=== PATIENT | male | born 1945 | race Caucasian/White ===

== ENCOUNTER 2019-12-11 21:25 | Inpatient (IN) | payer OTHER ==
[2019-12-13 05:34] VITALS: BMI 31.2
[2019-12-15 11:38] VITALS: O2SAT 93
[2019-12-15 13:08] VITALS: BP 104/55; TEMP 97.3
== END 2019-12-15 14:04 | disposition short-term general hospital (02) | DRG 280 ==
LOC: ER 21:25 → ERHOLD 22:52 → 3RD-ICU 12-12 00:34 → 4TH 12-13 11:25 → 2ND 12-14 19:49
PROVIDERS: ADMIT Internal Medicine; ATTEND Internal Medicine
PROC: 4A023N7 Measurement of Cardiac Sampling and Pressure, Left Heart, Percutaneous Approach (ICD-10-PCS; principal; 2019-12-15)
PROC: B2111ZZ Fluoroscopy of Multiple Coronary Arteries using Low Osmolar Contrast (ICD-10-PCS; 2019-12-15)
DX: I21.4 Non-ST elevation (NSTEMI) myocardial infarction (principal); J18.9 Pneumonia, unspecified organism; I10 Essential (primary) hypertension; E78.2 Mixed hyperlipidemia; I25.10 Atherosclerotic heart disease of native coronary artery without angina pectoris; E11.40 Type 2 diabetes mellitus with diabetic neuropathy, unspecified; E87.5 Hyperkalemia; E11.51 Type 2 diabetes mellitus with diabetic peripheral angiopathy without gangrene; K21.9 Gastro-esophageal reflux disease without esophagitis; J30.9 Allergic rhinitis, unspecified; M06.9 Rheumatoid arthritis, unspecified; M54.16 Radiculopathy, lumbar region; E87.6 Hypokalemia; Z79.82 Long term (current) use of aspirin; Z79.4 Long term (current) use of insulin; Z79.899 Other long term (current) drug therapy; Z95.5 Presence of coronary angioplasty implant and graft; Z20.828 Contact with and (suspected) exposure to other viral communicable diseases; Z98.1 Arthrodesis status; Z87.891 Personal history of nicotine dependence
CPT/HCPCS: 36415; 71045; 71275; 80048; 80076; 81003; 81015; 82947; 83605; 83735; 83880; 84132; 84145; 84443; 84484; 85025; 85610; 87040; 87070; 87081; 87804; 93005; 93306; 93454; 96372; 96374; 96375; 99285; C1760; C1893; J0456; J0583; J0696; J1650; J1720; J1815; J2250; J3010; J7030; J7040; Q9967; U0001

== ENCOUNTER 2020-05-20 10:47 | Inpatient (IN) | payer OTHER ==
--- OUTSIDE RECORDS SUMMARY | 2020-05-20 10:53 | XMS REPORT | Clinical Summary ---
:1945 Author Organization [facility] Address [address] [place] [address] Care Team Providers Name Role Phone Unavailable Primary Care Provider Unavailable Allergies No Known Allergies Medications Medication Sig Dispensed Refills Start End Status Date Date nitroglycerin Place 0.4 mg under 0 Active (NITROSTAT) 0.4 MG the tongue every 5 SL (five) minutes as tabletIndications: needed for Chest acute attack of pain Put 1 pill angina under tongue every 5min as needed for chest pain.No more than 3 doses in 15min.Call 911 if pain is unrelieved 5min after 1st dose . liraglutide 0.6 Inject 1.8 mg 0 Active mg/0.1 mL (18 mg/3 subcutaneously mL) PnIjIndications: daily . type 2 diabetes mellitus rosuvastatin Take 20 mg by 0 Act mar (CRESTOR) 40 MG mouth daily . tabletIndications: hardening of the arteries due to plaque buildup metFORMIN Take 1,000 mg by 0 Act mar (GLUCOPHAGE-XR) 500 mouth 2 (two) MG 24 hr times daily. tabletIndications: type 2 diabetes mellitus lansoprazole Take 30 mg by 0 Act mar (PREVACID) 30 MG mouth nightly. capsuleIndications: gastroesophageal reflux disease insulin glargine Inject 100 Units 0 Active (LANTUS) 100 unit/mL subcutaneously injectionIndications every morning Use : type 2 diabetes as directed . mellitus benazepriL Take 20 mg by 0 Activ e (LOTENSIN) 20 MG mouth daily. tabletIndications: high blood pressure empagliflozin Take 25 mg by 0 Ac tive (JARDIANCE) 25 mg mouth daily. tablet abatacept (ORENCIA) Inject 0 Active infusion intravenously every 28 days. clopidogreL (PLAVIX) Take 1 tablet (75 30 tablet 0 0 Active 75 mg tablet mg total) by mouth 0 021 daily. ranolazine (RANEXA) Take 1 tablet (500 60 tablet 0 0 Active 500 MG 12 hr tablet mg total) by mouth 0 0 21 2 (two) times daily. metoprolol tartrate Take 1 tablet (50 60 tablet Active (LOPRESSOR) 50 MG mg total) by mouth 0 021 tablet 2 (two) times daily. furosemide (LASIX) Take 40 mg by 0 Discontinued 40 MG mouth 2 (two) 020 tabletIndications: times daily. visible water retention metoprolol tartrate Take 50 mg by 0 Discontinued (LOPRESSOR) 50 MG mouth 2 (two) 020 tabletIndications: times daily. high blood pressure acetaminophen-codein Take 1 tablet by 0 Discontinued e (TYLENOL #3) mouth every 4 020 300-30 mg per tablet (four) hours as needed for Pain. gabapentin Take 600 mg by 0 Disc ontinued (NEURONTIN) 300 MG mouth 3 (three) 020 capsuleIndications: times daily as neuropathic pain needed . aspirin 81 MG Take 162 mg by 0 D iscontinued chewable tablet mouth daily. 020 metoprolol tartrate Take 75 mg by 60 tablet 0 Discontinued 75 mg mouth 2 (two) 0 020 TabIndications: high times daily. blood pressure isosorbide Take 1 tablet (30 30 tablet 0 D iscontinued mononitrate (IMDUR) mg total) by mouth 0 0 20 30 MG 24 hr tablet daily. ibuprofen Take 200 mg by 0 Disco ntinued (ADVIL,MOTRIN) 200 mouth every 6 020 MG tablet (six) hours as needed for Pain. apixaban (ELIQUIS) 5 Take 1 tablet (5 60 tablet Discontinued mg Tab tablet mg total) by mouth 0 020 2 (two) times daily. HYDROcodone-acetamin Take 1 tablet by 30 tablet 0 ophen (NORCO mouth every 6 0 020 7.5-325) 7.5-325 mg (six) hours as per tablet needed for Pain for up to 10 days. Max Daily Amount: 4 tablets Active Problems Problem Noted Date CAD (coronary artery disease) 02/21/2020 Coronary artery disease involving mentasta heart without angina pectoris, 02/21/2020 unspecified vessel or lesion type CAD, multiple vessel 12/15/2019 Acute respiratory insufficiency Acute blood loss anemia Hyperglycemia Encounters Date Type Specialty Care Team Description 04/20/2020 Office Visit Cardiology Wally, Encounter for Maycol Dsouza, postoperativ e wound MD check 04/06/2020 Office Visit Cardiology Wally, Visit for wound check Maycol Dsouza (Primary Dx) 04/06/2020 Travel 03/08/2020 Office Visit Yue Lo, Post-operative state Maycol Dsouza MD 02/25/2020 Documentation Rosalie Roque RN 02/22/2020 Anesthesia Event Derek Sanford MD 02/22/2020 Surgery Wally, REMOVAL,IMPELLA PUMP Maycol Dsouza MD 02/22/2020 Surgery Leonardo Carmona, PCI W/ IMPEL [facility] - IP PROC ONLY* * 02/22/2020 Anesthesia Event Ash Hunter MD 02/21/2020 - Hospital Encounter Cardiology Quynh, Coronary artery disease involving mentasta heart without angina pectoris, unspecified vessel or lesion type (Primary Dx); 02/24/2020 MD Eleazar Peripheral artery disease (HCC); Jermaine, Andrea Chest pain, uns pecified type MD Vivian 02/21/2020 Travel 02/19/2020 Orders Only Cardiology Leonardo Carmona MD 02/18/2020 Hospital Encounter Pre-Admission Testing 02/18/2020 Travel 12/15/2019 - Hospital Encounter Cardiology Suzie Hoffman CAD, mult iple vessel 12/17/2019 MD Slava 12/15/2019 Orders Only General Internal Medicine 12/15/2019 Travel after 05/20/2019 Family History Medical History Relation Name Comments Heart disease Father Heart disease Mother Relation Name Status Comments Father Mother Social History Tobacco Use Types Packs/Day Years Used Date Former Smoker Quit: 12/14/18 77 Smokeless Tobacco: Never Used Alcohol Use Drinks/Week oz/Week Comments Yes 21 Glasses of wine 12.6 Sex Assigned at Date Recorded Not on file Job Start Date Occupation Industry Not on file Not on file Not on file Travel History Travel Start Travel End No recent travel history available. Last Filed Vital Signs Vital Sign Reading Time Taken Blood Pressure 137/76 04/20/2020 11:14 AM CDT Pulse 93 04/20/2020 11:14 AM CDT Temperature 37.3 C (99.2 F) 04/20/2020 11:14 AM CDT Respiratory Rate 14 04/20/2020 11:14 AM CDT Oxygen Saturation 93% 04/20/2020 11:14 AM CDT Inhaled Oxygen Concentration - - Weight 91.6 kg (202 lb) 04/06/2020 11:08 AM CDT Height 180 cm (5' 10.87") 03/08/2020 10:22 AM CDT Body Mass Index 28.28 04/06/2020 11:08 AM CDT Plan of Treatment Health Maintenance Due Date Last Done Comments COLON CANCER SCREENING COLONOSCOPY 1945 MEDICARE ANNUAL WELLNESS (YEAR 2 or FIRST YEAR if no 07/11/2010 IPPE) PNEUMOCOCCAL 65+ LOW/MEDIUM RISK (2 of 2 - PCV13) 06/21/2015 06/21/2014 INFLUENZA VACCINE (#1) 2020 06/21/2014 Implants Implanted Type Area Wheel Worker Device Shelf Model / Identifier Expiration Serial / Date Lot Stent Synergy Otw [id number] - [id number] IMPLANTS N/A: [place] [id number] 06/14/2021 [id number] / Implanted: Qty: 1 on 02/22/2020 by Leonardo Carmona MD [employer] SCI:INTERV / CARDIOLOGY [id number] [employer] Otw [id number] - [id number] IMPLANTS N/A: [place] [id number] 07/06/2021 [id number] / Implanted: Qty: 1 on 02/22/2020 by Leonardo Carmona MD [employer] SCI:INTERV / CARDIOLOGY [id number] St[employer] Mr [id number] - [id number] IMPLANTS N/A: [place] [id number] 07/27/2021 [id number] / Implanted: Qty: 1 on 02/22/2020 by Leonardo Carmona MD [employer] SCI:INTERV / CARDIOLOGY [id number] Procedures Procedure Name Priority Date/Time Associated Comments Diagnosis VASCULAR DIAGRAM 03/02/2020 3:24 -SCAN PM CDT RHYTHM STRIP - SCAN 02/25/2020 2:01 PM CDT CARDIAC CATH REPORT - 02/25/2020 2:01 SCAN PM CDT RHYTHM STRIP - SCAN 02/24/2020 3:51 PM CDT REPORT OF PROCEDURE - 02/24/2020 1:51 ENDOSCOPY SCAN PM CDT POCT-GLUCOSE METER Routine 02/24/2020 8:03 Resul ts for this AM CDT procedure are i n the results section. CBC W/PLT COUNT & Routine 02/24/2020 5:25 Result s for this AUTO DIFFERENTIAL AM CDT procedure are in the results section. CBC W/PLT COUNT & Routine 02/24/2020 5:25 Result s for this AUTO DIFFERENTIAL AM CDT procedure are in the results section. BASIC METABOLIC PANEL Routine 02/24/2020 5:25 Re sults for this (7) AM CDT procedure are i n the results section. PHOSPHORUS Routine 02/24/2020 5:25 Results for this AM CDT procedure are i n the results section. MAGNESIUM Routine 02/24/2020 5:25 Results for this AM CDT procedure are i n the results section. POCT-GLUCOSE METER Routine 02/23/2020 9:23 Resul ts for this PM CDT procedure are i n the results section. TRANSFUSION SERVICE 02/23/2020 6:13 REPORT - SCAN PM CDT POCT-GLUCOSE METER Routine 02/23/2020 4:53 Resul ts for this PM CDT procedure are i n the results section. POCT-GLUCOSE METER Routine 02/23/2020 11:17 Resul ts for this AM CDT procedure are i n the results section. POCT-GLUCOSE METER Routine 02/23/2020 10:05 Resul ts for this AM CDT procedure are i n the results section. ECG 12-LEAD Routine 02/23/2020 9:10 AM CDT Procedure Note - Interface, External Ris In - 02/23/2020 9:13 AM CDT Ventricular Rate 74 BPM Atrial Rate 74 BPM P-R Interval 174 ms QRS Duration 88 ms Q-T Interval 396 ms QTC Calculation(Bazett) 439 ms P Milton 46 degrees R Milton 10 degrees T Milton 99 degrees Sinus rhythm with Premature atrial complexes and Premature ventricular complexes or Fusion complexes Abnormal QRS-T angle, consid er primary T wave abnormality Abnormal ECG When compared with ECG of 09:10, Fusion complexes are now Pre sent Premature ventricular comple xes are now Present Premature atrial complexes a re now Present ECG 12-LEAD Routine 02/23/2020 9:10 AM CDT Resu lts for this procedure are in the results section . ECG 12-LEAD Routine 02/23/2020 9:10 AM CDT Procedure Note - Interface, External Ris In - 02/23/2020 9:13 AM CDT Ventricular Rate 72 BPM Atrial Rate 72 BPM P-R Interval 178 ms QRS Duration 90 ms Q-T Interval 396 ms QTC Calculation(Bazett) 433 ms P Milton 45 degrees R Milton 6 degrees T Milton 96 degrees Poor data quality, interp retation may be adversely affected Sinus rhythm with marked sin us arrhythmia Abnormal QRS-T angle, consid er primary T wave abnormality Abnormal ECG When compared with ECG of 18:12, Significant changes have occ urred POCT-GLUCOSE METER Routine 02/23/2020 7:59 Resul ts for this AM CDT procedure are i n the results section. PHOSPHORUS Routine 02/23/2020 7:57 Results for this AM CDT procedure are i n the results section. MAGNESIUM Routine 02/23/2020 7:57 Results for this AM CDT procedure are i n the results section. BASIC METABOLIC PANEL Routine 02/23/2020 7:57 Re sults for this (7) AM CDT procedure are i n the results section. POCT-GLUCOSE METER Routine 02/23/2020 7:29 Resul ts for this AM CDT procedure are i n the results section. XR CHEST 1 VIEW STAT 02/23/2020 7:07 Results for this PORTABLE/BEDSIDE AM CDT procedure a re in the results section. POCT-GLUCOSE METER Routine 02/23/2020 6:16 Resul ts for this AM CDT procedure are i n the results section. POCT-GLUCOSE METER Routine 02/23/2020 4:55 Resul ts for this AM CDT procedure are i n the results section. POCT-GLUCOSE METER Routine 02/23/2020 4:08 Resul ts for this AM CDT procedure are i n the results section. LACTIC ACID, ARTERIAL Routine 02/23/2020 4:02 Re sults for this AM CDT procedure are i n the results section. KETONE, BLOOD STAT 02/23/2020 4:02 Results fo r this AM CDT procedure are i n the results section. BLOOD GAS, ARTERIAL Routine 02/23/2020 3:25 Resu lts for this AM CDT procedure are i n the results section. HEMOGLOBIN A1C Routine 02/23/2020 3:25 Results f or this AM CDT procedure are i n the results section. BASIC METABOLIC PANEL Routine 02/23/2020 3:25 Re sults for this (7) AM CDT procedure are i n the results section. LACTATE DEHYDROGENASE Routine 02/23/2020 3:25 Re sults for this (LDH) AM CDT procedure are i n the results section. CBC (HEMOGRAM ONLY) Routine 02/23/2020 3:25 Resu lts for this AM CDT procedure are i n the results section. MAGNESIUM STAT 02/23/2020 3:25 Results for this AM CDT procedure are i n the results section. POCT-GLUCOSE METER Routine 02/23/2020 3:19 Resul ts for this AM CDT procedure are i n the results section. POCT-GLUCOSE METER Routine 02/23/2020 2:05 Resul ts for this AM CDT procedure are i n the results section. POCT-GLUCOSE METER Routine 02/23/2020 1:13 Resul ts for this AM CDT procedure are i n the results section. LACTATE DEHYDROGENASE STAT Add-on 02/23/2020 12:26 Re sults for this (LDH) AM CDT procedure are i n the results section. BASIC METABOLIC PANEL Routine 02/23/2020 12:26 Re sults for this (7) AM CDT procedure are i n the results section. LACTIC ACID, VENOUS Routine 02/23/2020 12:26 Resu lts for this AM CDT procedure are i n the results section. PHOSPHORUS Routine 02/23/2020 12:26 Results for this AM CDT procedure are i n the results section. MAGNESIUM Routine 02/23/2020 12:26 Results for this AM CDT procedure are i n the results section. POCT-GLUCOSE METER Routine 02/23/2020 12:11 Resul ts for this AM CDT procedure are i n the results section. KETONE, BLOOD STAT 02/22/2020 9:23 Results fo r this PM CDT procedure are i n the results section. BLOOD GAS, ARTERIAL STAT 02/22/2020 9:23 Resu lts for this PM CDT procedure are i n the results section. LACTIC ACID, ARTERIAL Routine 02/22/2020 9:23 Re sults for this PM CDT procedure are i n the results section. BASIC METABOLIC PANEL Routine 02/22/2020 9:23 Re sults for this (7) PM CDT procedure are i n the results section. POCT-GLUCOSE METER Routine 02/22/2020 9:00 Resul ts for this PM CDT procedure are i n the results section. POCT-GLUCOSE METER Routine 02/22/2020 6:51 Resul ts for this PM CDT procedure are i n the results section. TRANSFUSION SERVICE 02/22/2020 6:00 REPORT - SCAN PM CDT CREATINE KINASE (CK) Add-On 02/22/2020 5:49 Res ults for this PM CDT procedure are i n the results section. LACTIC ACID, ARTERIAL Routine 02/22/2020 5:49 Re sults for this PM CDT procedure are i n the results section. PHOSPHORUS Routine 02/22/2020 5:49 Results for this PM CDT procedure are i n the results section. MAGNESIUM Routine 02/22/2020 5:49 Results for this PM CDT procedure are i n the results section. BASIC METABOLIC PANEL Routine 02/22/2020 5:49 Re sults for this (7) PM CDT procedure are i n the results section. GLUCOSE-STAT LAB STAT 02/22/2020 5:49 Results for this PM CDT procedure are i n the results section. POCT-GLUCOSE METER Routine 02/22/2020 5:22 Resul ts for this PM CDT procedure are i n the results section. CBC W/PLT COUNT & STAT 02/22/2020 2:51 Result s for this AUTO DIFFERENTIAL PM CDT procedure are in the results section. APTT STAT 02/22/2020 2:51 Results for this PM CDT procedure are i n the results section. PROTHROMBIN TIME/INR STAT 02/22/2020 2:51 Res ults for this PM CDT procedure are i n the results section. LACTIC ACID, ARTERIAL STAT 02/22/2020 2:51 Re sults for this PM CDT procedure are i n the results section. BASIC METABOLIC PANEL STAT 02/22/2020 2:51 Re sults for this (7) PM CDT procedure are i n the results section. CBC W/PLT COUNT & STAT 02/22/2020 2:51 Result s for this AUTO DIFFERENTIAL PM CDT procedure are in the results section. PLATELET COUNT STAT 02/22/2020 2:51 Results f or this PM CDT procedure are i n the results section. PREPARE RBC STAT 02/22/2020 2:09 Results for this PM CDT procedure are i n the results section. POCT-ACT Routine 02/22/2020 1:36 Results for this PM CDT procedure are i n the results section. HGB/HCT (H&H) - STAT Routine 02/22/2020 1:16 Res ults for this LAB PM CDT procedure are i n the results section. GLUCOSE-STAT LAB Routine 02/22/2020 1:16 Results for this PM CDT procedure are i n the results section. POTASSIUM-STAT LAB Routine 02/22/2020 1:16 Resul ts for this PM CDT procedure are i n the results section. SODIUM NA-STAT LAB Routine 02/22/2020 1:16 Resul ts for this PM CDT procedure are i n the results section. BLOOD GAS, ARTERIAL Routine 02/22/2020 1:16 Resu lts for this PM CDT procedure are i n the results section. RRL CRITICAL LABS Routine 02/22/2020 1:16 Result s for this (ABG,NA,K,H&H,GLUCOSE PM CDT proced ure are in ) the results section. REMOVAL,IMPELLA PUMP 02/22/2020 12:00 Coronary artery PM CDT disease with angina pectoris, unspecified vessel or lesion type, unspecified whether mentasta or transplanted heart (HCC) Case Notes 1 HR Special Needs (CASE WILL FOLLOW EARLIER HE ART CATH) POCT-ACT Routine 02/22/2020 11:44 AM Results for this CDT procedure are i n the results section. POCT-ACT Routine 02/22/2020 11:29 AM Results for this CDT procedure are i n the results section. POCT-ACT Routine 02/22/2020 11:00 AM Results for this CDT procedure are i n the results section. POCT-ACT Routine 02/22/2020 10:18 AM Results for this CDT procedure are i n the results section. POCT-ACT Routine 02/22/2020 9:37 AM Results for this CDT procedure are i n the results section. POCT-ACT Routine 02/22/2020 9:16 AM Results for this CDT procedure are i n the results section. PCI W/ IMPELLA 02/22/2020 7:30 AM Atherosclerosis of MCR - IP PROC CDT coronary artery with ONLY angina pectoris, unspecified vessel or lesion type, unspecified whether mentasta or transplanted heart (HCC) Case Notes (1)CASE 6TOP / ANESTHESIA ECG 12-LEAD Routine 02/21/2020 6:39 PM CDT Resu lts for this procedure are i n the results section . SARS-COV2/RT-PCR ([facility] & Routine 02/21/2020 6:28 PM CDT Results for this REF LABS) procedure are i n the results section . CBC W/PLT COUNT & AUTO Routine 02/21/2020 6:27 PM CDT Results for this DIFFERENTIAL procedure are i n the results section . TYPE AND SCREEN, AUTOMATED Routine 02/21/2020 6:27 PM CDT Results for this procedure are i n the results section . PLATELET AGGREGATION: AP Routine 02/21/2020 6:27 PM CDT Results for this FUNCTION SCREEN procedure ar e in the results section . CBC W/PLT COUNT & AUTO Routine 02/21/2020 6:27 PM CDT Results for this DIFFERENTIAL procedure are i n the results section . MAGNESIUM Routine 02/21/2020 6:27 PM CDT Resu lts for this procedure are i n the results section . PT/APTT Routine 02/21/2020 6:27 PM CDT Resu lts for this procedure are i n the results section . BASIC METABOLIC PANEL (7) Routine 02/21/2020 6:27 PM CDT Results for this procedure are i n the results section . ED ECG INTERPRETATION Routine 02/21/2020 5:30 PM CDT Results for this procedure are i n the results section . PERIPHERAL VASCULAR REPORT 12/18/2019 9:11 PM CDT - SCAN RHYTHM STRIP - SCAN 12/18/2019 10:10 AM CDT TRANSFUSION SERVICE REPORT 12/17/2019 5:50 PM CDT - SCAN ARTERIAL DOPPLER LEGS Routine 12/17/2019 3:27 PM CDT Results for this BILATERAL procedure are i n the results section . POCT-GLUCOSE METER Routine 12/17/2019 7:58 AM CDT Results for this procedure are i n the results section . TROPONIN I Routine 12/17/2019 3:43 AM CDT Resu lts for this procedure are i n the results section . CBC (HEMOGRAM ONLY) Routine 12/17/2019 3:43 AM CDT Results for this procedure are i n the results section . BASIC METABOLIC PANEL (7) Routine 12/17/2019 3:43 AM CDT Results for this procedure are i n the results section . TROPONIN I Routine 12/16/2019 9:36 PM CDT Resu lts for this procedure are i n the results section . ECHOCARDIOGRAM REPORT - 12/16/2019 9:20 PM CDT SCAN POCT-GLUCOSE METER Routine 12/16/2019 9:14 PM CDT Results for this procedure are i n the results section . TRANSFUSION SERVICE REPORT 12/16/2019 5:50 PM CDT - SCAN TROPONIN I Routine 12/16/2019 3:56 PM CDT Resu lts for this procedure are i n the results section . APTT Routine 12/16/2019 3:56 PM CDT Resu lts for this procedure are i n the results section . POCT-GLUCOSE METER Routine 12/16/2019 12:17 PM CDT Results for this procedure are i n the results section . 2D ECHO W/ DOPPLER Routine 12/16/2019 11:29 AM CDT Results for this (CW/PW/COLOR) procedure are in the results section . APTT Routine 12/16/2019 10:13 AM CDT Resu lts for this procedure are i n the results section . XR CHEST 1 VIEW STAT 12/16/2019 9:56 AM CDT R esults for this PORTABLE/BEDSIDE procedure a re in the results section . TROPONIN I Routine 12/16/2019 9:29 AM CDT Resu lts for this procedure are i n the results section . POCT-GLUCOSE METER Routine 12/16/2019 8:00 AM CDT Results for this procedure are i n the results section . CAROTID DOPPLER BILATERAL Routine 12/16/2019 7:51 AM CDT Results for this procedure are i n the results section . HEMOGLOBIN A1C Routine 12/16/2019 4:09 AM CDT Re sults for this procedure are i n the results section . LIPID PANEL Routine 12/16/2019 4:09 AM CDT Resu lts for this procedure are i n the results section . BASIC METABOLIC PANEL (7) Routine 12/16/2019 4:09 AM CDT Results for this procedure are i n the results section . ABORH, MANUAL STAT 12/15/2019 11:01 PM CDT Res ults for this procedure are i n the results section . TYPE AND SCREEN, AUTOMATED Routine 12/15/2019 10:40 PM CDT Results for this procedure are i n the results section . POCT-GLUCOSE METER Routine 12/15/2019 9:34 PM CDT Results for this procedure are i n the results section . PROTHROMBIN TIME/INR Routine 12/15/2019 6:25 PM CDT Results for this procedure are i n the results section . APTT Routine 12/15/2019 6:25 PM CDT Resu lts for this procedure are i n the results section . COMPREHENSIVE METABOLIC Routine 12/15/2019 6:25 PM CDT Results for this PANEL procedure are i n the results section . PLATELET AGGREGATION: AP Routine 12/15/2019 6:25 PM CDT Results for this FUNCTION SCREEN procedure ar e in the results section . ECG 12-LEAD Routine 12/15/2019 6:12 PM CDT Resu lts for this procedure are i n the results section . XR CHEST 1 VIEW Routine 12/15/2019 5:59 PM CDT R esults for this PORTABLE/BEDSIDE procedure a re in the results section . POCT-GLUCOSE METER Routine 12/15/2019 3:58 PM CDT Results for this procedure are i n the results section . after 05/20/2019 Results VASCULAR DIAGRAM -SCAN (03/02/2020 3:24 PM CDT) Narrative Performed At This result has an attachment that is no t available. RHYTHM STRIP - SCAN (02/25/2020 2:01 PM CDT)Only the most recent of3 results within the time period is included. Narrative Performed At This result has an attachment that is no t available. CARDIAC CATH REPORT - SCAN (02/25/2020 2:01 PM CDT) Narrative Performed At This result has an attachment that is no t available. EKG-SCANNED (02/24/2020 1:51 PM CDT) Narrative Performed At This result has an attachment that is no t available. POC-Glucose meter (02/24/2020 8:03 AM CDT)Only the most recent of23 results within the time period is included. POC-Glucose Meter 148 (H)Comment: : TESTED 70 - 110 mg/dL [facility] AT [facility] [address] [facility] [facility] [address] [facility], [id number]: Educational Resource Coordinator/Hotel Guest Service Agent ID = [id number] for LAURENCE MAHMOOD Specimen Blood Performing Organization Address City/State/Zipcode Phone Number [facility] [address] [place] [address] CENTER CBC with platelet count + automated diff (02/24/2020 5:25 AM CDT)Only the most recent of3 resultswithin the time period is included. WBC 8.0 3.5 - 10.5 K/L [facility] RBC 3.16 (L) 4.63 - 6.08 M/L [facility] Hemoglobin 9.7 (L) 13.7 - 17.5 GM/DL [facility] Hematocrit 30.3 (L) 40.1 - 51.0 % [facility] MCV 95.9 (H) 79.0 - 92.2 fL [facility] MCH 30.7 25.7 - 32.2 pg [facility] MCHC 32.0 (L) 32.3 - 36.5 GM/DL [facility] RDW 14.8 (H) 11.6 - 14.4 % [facility] Platelets 128 (L) 150 - 450 K/CU MM [facility] MPV 10.3 9.4 - 12.4 fL [facility] nRBC 0 0 - 0 /100 WBC [facility] % Neutros 62 % [facility] % Lymphs 22 % [facility] % Monos 14 % [facility] % Eos 1 % [facility] % Baso 1 % [facility] # Neutros 4.93 1.78 - 5.38 K/L [facility] # Lymphs 1.77 1.32 - 3.57 K/L [facility] # Monos 1.14 (H) 0.30 - 0.82 K/L [facility] # Eos 0.10 0.04 - 0.54 K/L [facility] # Baso 0.04 0.01 - 0.08 K/L [facility] Immature Granulocytes-Relative 1 0 - 1 % C [facility] Specimen Blood Performing Organization Address City/State/Zipcode Phone Number [address] [address] [place] Phosphorus (02/24/2020 5:25 AM CDT)Only the most recent of4 resultswithin the time period is included. Phosphorus 2.5 2.3 - 4.7 mg/dL [facility] Specimen Blood Narrative Performed At Educational Resource Coordinator ID - AYA L [facility] Performing Organization Address City/[facility]/Zipcode Phone Number [address] [address] [place] Magnesium (02/24/2020 5:25 AM CDT)Only the most recent of6 resultswithin the time period is included. Magnesium 2.4 1.6 - 2.6 mg/dL [facility] Specimen Blood Narrative Performed At Educational Resource Coordinator ID - AYA L [facility] Performing Organization Address City/State/Zipcode Phone Number [address] [address] [place] Basic Metabolic Panel (02/24/2020 5:25 AM CDT)Only the most recent of10 results within the time period is included. Sodium 138 136 - 145 meq/L [facility] Potassium 3.9 3.5 - 5.1 meq/L [facility] Chloride 107 98 - 107 meq/L [facility] CO2 24 22 - 29 meq/L [facility] BUN 9 7 - 21 mg/dL [facility] Creatinine 0.92 0.57 - 1.25 mg/dL [facility] Glucose 130 (H) 70 - 105 mg/dL [facility] Calcium 8.4 8.4 - 10.2 mg/dL [facility] EGFR 80Comment: ESTIMATED GFR IS mL/min/1.73 sq m [facility] NOT ACCURATE CREATININE CT DICAL [place] CLEARANCE IN PREDICTING GLOMERULAR FILTRATION RATE. ESTIMATED GFR IS NOT APPLICABLE FOR DIALYSIS PATIENTS. Specimen Blood Narrative Performed At Educational Resource Coordinator ID - PIAYA L [facility] Performing Organization Address City/State/Zipcode Phone Number [facility] [address] [place] [address] CENTER TRANSFUSION SERVICE REPORT - SCAN (02/23/2020 6:13 PM CDT)Only the most recent of4 resultswithin the time period is included. Narrative Performed At This result has an attachment that is no t available. ECG 12 lead (02/23/2020 9:10 AM CDT)Only the most recent of3 resultswithin the time period is included. Specimen Narrative Performed At Ventricular Rate 74 BPM GE MUSE Atrial Rate 74 BPM P-R Interval 174 ms QRS Duration 88 ms Q-T Interval 396 ms QTC Calculation(Bazett) 439 ms P Milton 46 degrees R Milton 10 degrees T Milton 99 degrees Sinus rhythm with Premature atrial complexes and Sharon ture ventricular complexes or Fusion complexes T wave inversion in aVL Abnormal ECG When compared with ECG of 23-FEB-2020 09 :10, Fusion complexes are now Present Premature ventricular complexes are now Present Premature atrial complexes are now Prese nt QRS axis has shifted from left T waves are no longer negative in I, V3- V6 QT has shortened Confirmed by MD IDALIA, EVA ([id number]) on 02/23/2020 12:43:33 PM Procedure Note Interface, External Ris In - 02/23/2020 12:43 PM CDT Ventricular Rate 74 BPM Atrial Rate 74 BPM P-R Interval 174 ms QRS Duration 88 ms Q-T Interval 396 ms QTC Calculation(Bazett) 439 ms P Milton 46 degrees R Milton 10 degrees T Milton 99 degrees Sinus rhythm with Premature atrial compl exes and Premature ventricular complexes or Fusion complexes T wave inversion in aVL Abnormal ECG When compared with ECG of 23-FEB-2020 09 :10, Fusion complexes are now Present Premature ventricular complexes are now Present Premature atrial complexes are now Prese nt QRS axis has shifted from left T waves are no longer negative in I, V3- V6 QT has shortened Confirmed by MD IDALIA, EVA ([id number]) on 02/23/2020 12:43:33 PM Performing Organization Address City/State/Zipcode Phone Number [place] X[facility] chest 1 view portable / bedside (02/23/2020 7:07 AM CDT)Only the most recent of3 resultswithin the time period is included. Specimen Narrative Performed At FINAL REPORT [facility] CLINICAL HISTORY: s/p PCI, impella remov al TECHNIQUE: 1 view of the chest. COMPARISON: 12/16/2019 IMPRESSION: There are no focal infiltrates or effusi ons. The cardiomediastinal silhouette is magnified by technique. Th e osseous structures appear intact. There is mild elevation of the r ight hemidiaphragm. Signed: Dorothy Ferreira MD Report Verified Date/Time:02/23/2020 07:27:25 Reading Location: [facility] Reading Room Procedure Note Interface, External Ris In - 02/23/2020 7:29 AM CDT FINAL REPORT CLINICAL HISTORY: s/p PCI, impella remov al TECHNIQUE: 1 view of the chest. COMPARISON: 12/16/2019 IMPRESSION: There are no focal infiltrates or effusi ons. The cardiomediastinal silhouette is magnified by technique. Th e osseous structures appear intact. There is mild elevation of the r ight hemidiaphragm. Signed: Dorothy Ferreira MD Report Verified Date/Time: 02/23/2020 0 7:27:25 Reading Location: [facility] Performing Organization Address City/State/Zipcode Phone Number GE [facility] Lactic Acid, Arterial (02/23/2020 4:02 AM CDT)Only the most recent of4 results within the time period is included. Lactate, Art 1.2 0.5 - 2.2 mmol/L [facility] Specimen Blood, Arterial Narrative Performed At Educational Resource Coordinator JORGE LUIS - ARLENE Mccormick [facility] CENTER Performing Organization Address City/[facility]/Zipcode Phone Number [address] [address] CENTER Ketone, blood (02/23/2020 4:02 AM CDT)Only the most recent of2 resultswithin the time period is included. Ketones, Blood 0.8 (H) <0.4 mmol/L [facility] Specimen Blood Performing Organization Address City/[facility] Phone Number [address] [address] CENTER CBC (Hemogram only) (02/23/2020 3:25 AM CDT)Only the most recent of2 results within the time period is included. WBC 9.7 3.5 - 10.5 K/L [facility] RBC 3.29 (L) 4.63 - 6.08 M/L [facility] Hemoglobin 10.2 (L) 13.7 - 17.5 GM/DL [facility] Hematocrit 30.8 (L) 40.1 - 51.0 % [facility] MCV 93.6 (H) 79.0 - 92.[address] [facility] MCH 31.0 25.7 - 32.[address] [facility] MCHC 33.1 32.3 - 36.5 GM/DL [facility] RDW 14.5 (H) 11.6 - 14.4 % [facility] Platelets 127 (L) 150 - 450 K/CU MM [facility] MPV 10.1 9.4 - 12.[address] [facility] nRBC 0 0 - 0 /[address] [facility] Specimen Blood Performing Organization Address City/[facility] Phone Number [address] [address] C[place] Lactate dehydrogenase (LDH) (02/23/2020 3:25 AM CDT)Only the most recent of2 resultswithin the time period is included. LDH 201 125 - 220 U/L [facility] Specimen Blood Narrative Performed At Educational Resource Coordinator ID - ARLENE W [facility] Performing Organization Address City/[facility] Phone Number [address] [address] CENTER Hemoglobin A1c (02/23/2020 3:25 AM CDT)Only the most recent of2 resultswithin the time period is included. Hemoglobin A1C 8.8 (H) 4.3 - 6.1 % [facility] Specimen Blood Performing Organization Address City/[facility] Phone Number [address] [address] [place] Blood gas, arterial (02/23/2020 3:25 AM CDT)Only the most recent of3 results within the time period is included. pH, Arterial 7.45 7.35 - 7.45 [facility] pCO2, Arterial 34 (L) 35 - [address] [facility] pO2, Arterial 140 (H) 80 - [address] [facility] O2 Sat, Arterial 98.9 (H) 96.0 - 97.0 % [facility] HCO3, Arterial 23 21 - 29 mmol/L [facility] Base Excess, Arterial -0.2 -2.0 - 3.0 mmol/L [facility] Patient Temperature 37.0 C [facility] FIO2 21.0 % [facility] Specimen Blood, Arterial Performing Organization Address [facility] Phone Number [address] [address] [place] Lactic acid, venous (02/23/2020 12:26 AM CDT) Lactate, Venous 1.65 0.50 - 2.20 mmol/L [facility] Specimen Blood Narrative Performed At Educational Resource Coordinator ID - DB [facility] Performing Organization Address [facility] Phone Number [address] [address] [place] Glucose-Stat Lab (02/22/2020 5:49 PM CDT)Only the most recent of2 resultswithin the time period is included. Glucose 292 (H) 70 - 110 mg/dL [facility] Specimen Blood, Arterial Performing Organization Address [facility] Phone Number [address] [address] [place] Creatine Kinase (CK) (02/22/2020 5:49 PM CDT) Total CK 152 29 - 200 U/L [facility] Specimen Blood Narrative Performed At Educational Resource Coordinator ID - DB [facility] Performing Organization Address [facility] Phone Number [address] [address] CENTER aPTT (02/22/2020 2:51 PM CDT)Only the most recent of4 resultswithin the time period is included. PTT 30.1 22.5 - 36.0 seconds [facility] Specimen Blood Performing Organization Address [facility] Phone Number [address] [address] CENTER Prothrombin time/INR (02/22/2020 2:51 PM CDT)Only the most recent of2 results within the time period is included. Protime 15.6 (H) 11.9 - 14.2 seconds [facility] INR 1.[address] [facility] Specimen Blood Narrative Performed At Effective 02/04/2019: PT Reference Range [facility] Change New: 11.9-14.2Previous: 11.7-14.7 RECOMMENDED COUMADIN/WARFARIN INR THERAPY RANGES STANDARD DOSE: 2.0-3.0Includes: PROPHYLAXIS for venous thrombosis, systemic embolization; TREATMENT for venous thrombosis and/or pulmonary embolus. HIGH RISK: Target INR is 2.5-3.5 for patients wiht mechanical heart valves. Performing Organization Address [facility] Phone Number [address] [address] CENTER Platelet count (02/22/2020 2:51 PM CDT) Platelets 154 150 - 450 K/CU MM [facility] Specimen Blood Performing Organization Address [facility] Phone Number [address] [address] CENTER Prepare RBC (02/22/2020 2:09 PM CDT) CROSSMATCH COMPATIBLE SAFETRACE TX Unit ABO O Pos SAFETRACE TX UNIT NUMBER [id number] SAFETRACE TX Status RETURNED FROM ISSUE SAFETRACE TX Blood Bank Product RED BLOOD CELLS SAFETRACE TX PRODUCT CODE [id number] SAFETRACE TX CROSSMATCH COMPATIBLE SAFETRACE TX Unit ABO O Pos SAFETRACE TX UNIT NUMBER [id number] SAFETRACE TX Status RETURNED FROM ISSUE SAFETRACE TX Blood Bank Product RED BLOOD CELLS SAFETRACE TX PRODUCT CODE [id number] SAFETRACE TX Performing Organization Address [facility] Phone Number SAFETRACE TX POC ACTIVATED CLOTTING TIME (02/22/2020 1:36 PM CDT)Only the most recent of7 resultswithin the time period is included. Activated Clotting Time 125Comment: : 74-137 sec [facility] seconds, Baseline: [facility]ED [facility] AT [address], [address]: Educational Resource Coordinator/Hotel Guest Service Agent ID = [id number] for SILVERIO REICH Specimen Blood Performing Organization Address [facility] Phone Number [address] [phone] CENTER Potassium-Stat Lab (02/22/2020 1:16 PM CDT) Potassium 3.8 3.6 - 5.5 meq/L [facility] Specimen Blood, Arterial Performing Organization Address [facility] Phone Number [address] [phone] CENTER Sodium Na-Stat Lab (02/22/2020 1:16 PM CDT) Sodium 136 136 - 145 meq/L [facility] Specimen Blood, Arterial Performing Organization Address [facility] Phone Number [address] [address] [place] HGB/HCT (H&H)-Stat Lab (02/22/2020 1:16 PM CDT) Hemoglobin 10.6 (L) 13.0 - 16.8 g/dL [facility] Hematocrit 31.0 (L) 40.0 - 50.0 % [facility] Specimen Blood, Arterial Performing Organization Address [facility] Phone Number [address] [phone] CENTER SARS-CoV2/RT-PCR (Asymptomatic ONLY) (02/21/2020 6:28 PM CDT) SARS-COV2/RT-PCR Not Detected Not Detected, Negative [facility] SARS-COV-2 PERFORMING LAB BSC [facility] Specimen Other Narrative Performed At Negative results do not preclude SARS-CoV-2 [facility] infection and should not be used as the sole basis for patient management decisions. Negative results must be combined with clinical observations, patient history, and epidemiological information. A false negative result may occur if a specimen is improperly collected, transported or handled. The limit of detection for this assay is 250 copies/mL. This SARS CoV-2 test is a rapid, real-time RT-PCR test intended for the qualitative detection of nucleic acid from SARS-CoV-2 in a nasopharyngeal swab specimen collected from individuals suspected of COVID-19 by their healthcare provider. This test has not been Food and Drug Administration (FDA) cleared or approved and has been authorized by FDA under an Emergency Use Authorization (EUA). This EUA will be effective until the declaration that circumstances exist justifying the authorization of the emergency use of in vitro diagnostic tests for detection and/or diagnosis of COVID-19 is terminated under Section 564(b)(2) of the Act or the EUA is revoked under Section 564(g) of the Act. Fact Sheet for Healthcare Providers: https://www.dondeEsta™/Documents/Xpert%20Xpre ss%20SARS%20CoV-2/Fact%20Sheets/3023802%20SAR S-COV-2%20HEALTHCARE%20PROVIDERS%20FACT%20SHEE T.pdf Fact Sheet for Healthcare Patients: https://www.[employer]/Documents/Xpert%20Xpre ss%20SARS%20CoV-2/Fact%20Sheets/3023801%20SAR S-COV-2%20PATIENT%20FACT%20SHEET.pdf Performing Laboratory: [address] [place] [address] Performing Organization Address City/State/Zipcode Phone Number [address] [address] CENTER Platelet Aggregation: Function Screen (02/21/2020 6:27 PM CDT)Only the most recent of2 resultswithin the time period is included. Pathologist: Daily Pina MD [facility] (electronic signature) [facility] Platelets 222 150 - 450 K/CU [facility] ADP 6 (L) 62 - 100 % [facility] Platelet Rich Plasma 278 200 - 300 k/cu [facility] Plt. Function Screen Pattern of disaggregation [facility] Interpretation present with ADP which [facility] may be characteristic of CENTER P2Y12 inhibitor effect. Correlation with medication history is required. Specimen Blood Narrative Performed At Platelet Function Screen results may be [facility] falsely low with platelet counts <75,000/cu mm. Educational Resource Coordinator ID - [id number] Performing Organization Address [facility] Phone Number [address] [address] CENTER Type and screen, automated ([facility] Lab) (02/21/2020 6:27 PM CDT)Only the most recent of2 resultswithin the time period is included. ABO/RH AUTOMATED (BEAKER) O POSITIVE [facility] Ab Scrn NEGATIVE [facility] Specimen Blood Performing Organization Address City/[facility]/Zipcode Phone Number [address] [address] PT/aPTT (02/21/2020 6:27 PM CDT) Protime 14.3 (H) 11.9 - 14.2 seconds [facility] INR 1.[address] [facility] PTT 30.5 22.5 - 36.0 seconds [facility] Specimen Blood Narrative Performed At Effective 02/04/2019: PT Reference Range [facility] Change New: 11.9-14.2Previous: 11.7-14.7 RECOMMENDED COUMADIN/WARFARIN INR THERAPY RANGES STANDARD DOSE: 2.0-3.0Includes: PROPHYLAXIS for venous thrombosis, systemic embolization; TREATMENT for venous thrombosis and/or pulmonary embolus. HIGH RISK: Target INR is 2.5-3.5 for patients wiht mechanical heart valves. Performing Organization Address City/State/Zipcode Phone Number [facility] [address] [place] [address] CENTER ECG/EKG Interpretation (02/21/2020 5:30 PM CDT) Narrative Performed At Eleazar Beauchamp MD 02/21/2020 6:58 PM ECG/EKG Interpretation Date/Time: 02/21/2020 6:57 PM Performed by: Eleazar Beauchamp MD Authorized by: Eleazar Beauchamp MD The ECG was interpreted by ED physician. This ECG was compared with previous ECG(s).Comments: Sinus rhythm with marked sin us arrhythmia, rate 80, CT 184, QRS 82, QTc 433, normal axis , no ST elevations, ST depressions, T wave inversions. PERIPHERAL VASCULAR REPORT - SCAN (12/18/2019 9:11 PM CDT) Narrative Performed At This result has an attachment that is no t available. 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 2. The profunda femoral, superficial femoral, popliteal, posterior tibial, peroneal and anterior tibial arteries were patent with calcified plaque and biphasic-monophasic doppler waveforms th roughout. 3. The DP and PT DASIA were within the noncompressible range. 4. There was adequate flow to the digits by PPG waveforms. 5. The great toe pressure is 84 mmHg with a normal TBI of 0.65. 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 2. The profunda femoral, superficial femoral and popliteal arteries with calcified plaque triphasic doppler waveforms throughout. 3. There is a >50% stenosis in the distal superficial femoral artery with a velocity of 239/39 cm/sec. 4. The PT and DP DASIA's were within the noncompressible range. 5. There was adequate flow to the digits by PPG waveforms. 6. The great toe pressure is 100 mmHg with a normal TBI of 0.78. Conclusions Summary Arterial pressures and Doppler analysis were performed bilaterally. The arteries were adequately visualized. 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 The profunda femoral, superficial femoral, popliteal, posterior tibial, peroneal and anterior tibial arteries were patent with calcified plaque and biphasic-monophasic doppler waveforms throughout. The DP and PT DASIA were within the noncompressible range. There was adequate flow to the digits by PPG waveforms. The great toe pressure is 84 mmHg with a normal TBI of 0.65. On the left, there was >50% stenosis in the common femoral artery with triphasic Doppler waveforms and velocity of 266/0 cm/sec. There wasa >50% stenosis in the distal superficial femoral artery with a velocity of 239/39 cm/sec. The profunda femoral, superficial femoral and popliteal arteries with calcified plaque triphasic doppler waveforms throughout. The PT and DP DASIA's were within the noncompressible range. There was adequate flow to the digits by PPG waveforms. The great toe pressure was 100 mmHg with a normal TBI of 0.78. *Left Calf vessels not obtained due to . Signature Velocities are measured in cm/s ; Diameters are measured in cm LE Duplex Measurements Right Left + + + + + + + + + + !Location ! !PSV!EDV !Waveform ! !PSV !EDV !Waveform ! + + + + + + + + + + !Mid Common Femoral ! !440!60 ! ! !266 !!Triphasic ! + + + + + + + + + + !Prox PFA ! !65 ! !Biphasic! !62! !Triphasic ! + + + + + + + + + + !Prox SFA ! !41 !8!Monophasic ! !70! !Triphasic ! + + + + + + + + + + !Mid SFA ! !64 !8!Biphasic ! !89!12 !Triphasic ! + + + + + + + + + + !Dist SFA ! !65 !5!Biphasic ! !237 !39!Triphasic ! + + + + + + + + + + !Prox Popliteal ! !43 !9!Monophasic ! !80! !Triphasic ! + + + + + + + + + + !Dist Popliteal ! !27 !6!Monophasic ! + + + + + + !Prox PRESSURIZER ! !55 ! !Biphasic ! + + + + + + !Dist PRESSURIZER ! !42 !9!Biphasic ! + + + + + + !Prox RONN ! !37 !7!Biphasic ! + + + + + + !Mid RONN ! !53 !9!Biphasic ! + + + + + + !Dist RONN ! !51 !10 !Biphasic ! + + + + + + !Dist Peroneal ! !34 !9!Biphasic ! + + + + + + Narrative Performed At [facility] - Lower Extremity Arterial Duplex [facility] Demographics Patient Name Jeremi CARTWRIGHTte of Study 12/17/2019 ADDISON HODGES [id number] Visit Number [id number] Gender Male Accession Number [id number] Date of Birth1945 [facility] [id number] Physician SonographerMann Miranda RVTInterpreting Physician NiniMD Procedure Type of Study: Extremities Arteries: Lower Extremities Arterial Duplex, ARTERIAL DOPPLER LEGS, BILATERAL. Indications for Study:PVD. Patient Status:Routine. Study Location:Portable. Technical Quality:Adequate visualization . - Results were reported to:@ 11:20. Risk Factors History of Disease + +--- -+ + !Diagnosis !Date!Comments ! + +--- -+ + !History/Risk Factors: !!CAD, DM, HTN ! + +--- -+ + Procedure Note Interface, External Ris In - 12/18/2019 10:43 AM CDT [facility] - Lower Extremity Arterial Duplex Demographics Patient Name DONTRELL CARTWRIGHT ate of Study 12/17/2019 ADIDSON HODGES A PHARMAJET 74 Visit Number [id number] G bharat Male Accession Number [id number] D ate of 1945 Referring Kristine tate Number [id number] Physician Analytics Manager Mann Miranda RVT I nterpreting Helen Terrazas MD Procedure Type of Study: Extremities Arteries: Lower Extremities Arterial Duplex, ARTERIAL DOPPLER LEGS, BILATERAL. Indications for Study:PVD. Patient Status:Routine. Study Location:Portable. Technical Quality:Adequate visualization . - Results were reported to:@11 :20. Risk Factors History of Disease + ------+----+ + !Diagnosis !Date!Comments ! + ------+----+ + !History/Risk Factors: ! !CAD, DM, HTN ! + ------+----+ + Impressions Right Impression 1 There is >50% stenosis in the common f emoral artery with triphasic Doppler waveforms and velocity of 440/60 cm/sec. 2. The profunda femoral, superficial fem oral, popliteal, posterior tibial, peroneal and anterior tibial arteries we re patent with calcified plaque and biphasic-monophasic doppler waveforms th roughout. 3. The DP and PT DASIA were within the non compressible range. 4. There was adequate flow to the digits by PPG waveforms. 5. The great toe pressure is 84 mmHg wit h a normal TBI of 0.65. Left Impression 1 There is >50% stenosis in the common f emoral artery with triphasic Doppler waveforms and velocity of 266/0 cm/sec. 2. The profunda femoral, superficial fem oral and popliteal arteries with calcified plaque triphasic doppler wavef orms throughout. 3. There is a >50% stenosis in the dista l superficial femoral artery with a velocity of 239/39 cm/sec. 4. The PT and DP DASIA's were within the n oncompressible range. 5. There was adequate flow to the digits by PPG waveforms. 6. The great toe pressure is 100 mmHg wi th a normal TBI of 0.78. Conclusions Summary Arterial pressures and Doppler analysis were performed bilaterally. The arteries were adequately visualized. On the right, there is >50% stenosis in the common femoral artery with triph asic Doppler waveforms and velocity of 440/60 cm/sec. The profunda femoral, superficial femoral, popliteal, posterior tibial, peroneal and anterior tibial arteries were patent with calcified plaque and biphasic-monophasi c doppler waveforms throughout. The DP and PT DASIA were within the nonco mpressible range. There was adequate flow to the digits by PPG wave forms. The great toe pressure is 84 mmHg with a normal TBI of 0.65. On the left, there was >50% stenosis in the common femoral artery with triphasi c Doppler waveforms and velocity of 266/0 cm/sec. There wasa >50% stenosis in the distal superficial femoral artery with a velocity of 239/39 cm/sec . The profunda femoral, superficial femoral and popliteal arteries with radha cified plaque triphasic doppler waveforms throughout. The PT and DP DASIA 's were within the noncompressible range. There was adequate flow to the d igits by PPG waveforms. The great toe pressure was 100 mmHg with a normal TBI of 0.78. *Left Calf vessels not obtained due to . Signature Velocities are measured in cm/s ; Diamet ers are measured in cm LE Duplex Measurements Right Left + + + + + + + + + + !Location ! !PSV !EDV !Waveform ! !PSV !EDV !Waveform ! + + + + + + + + + + !Mid Common Femoral ! !440 !60 ! ! !266 ! !Triphasic ! + + + + + + + + + + !Prox PFA ! !65 ! !Biphasic ! !62 ! !Triphasic ! + + + + + + + + + + !Prox SFA ! !41 !8 !Monophasic ! !70 ! !Triphasic ! + + + + + + + + + + !Mid SFA ! !64 !8 !Biphasic ! !89 !12 !Triphasic ! + + + + + + + + + + !Dist SFA ! !65 !5 !Biphasic ! !237 !39 !Triphasic ! + + + + + + + + + + !Prox Popliteal ! !43 !9 !Monophasic ! !80 ! !Triphasic ! + + + + + + + + + + !Dist Popliteal ! !27 !6 !Monophasic ! + + + + + + !Prox PRESSURIZER ! !55 ! !Biphasic ! + + + + + + !Dist PRESSURIZER ! !42 !9 !Biphasic ! + + + + + + !Prox RONN ! !37 !7 !Biphasic ! + + + + + + !Mid RONN ! !53 !9 !Biphasic ! + + + + + + !Dist RONN ! !51 !10 !Biphasic ! + + + + + + !Dist Peroneal ! !34 !9 !Biphasic ! + + + + + + Performing Organization Address City/State/Zipcode Phone Number [facility] Troponin I (12/17/2019 3:43 AM CDT)Only the most recent of4 resultswithin the time period is included. Troponin I 0.34 (HH) 0.00 - 0.03 ng/mL [facility] Specimen Blood Narrative Performed At Troponin I (TnI) levels must be interpreted [facility] in the context of the presenting symptoms and the clinical findings. Elevated TnI levels indicate myocardial damage, but are not specific for ischemic heart disease. Elevated TnI levels are seen in patients with other cardiac conditions (including myocarditis and congestive heart failure), and slight TnI elevations occur in patients with other conditions, including sepsis, renal failure, acidosis, acute neurological disease, and persistent tachyarrhythmia. Educational Resource Coordinator ID - PIAYA L Performing Organization Address City/State/Zipcode Phone Number [facility] [address] [place] [address] AGUANGA ECHOCARDIOGRAM REPORT - SCAN (12/16/2019 9:20 PM CDT) Narrative Performed At This result has an attachment that is no t available. 2D Echo W/Doppler(CW/PW/Color) (12/16/2019 11:29 AM CDT) Ejection Fraction [facility] Specimen Narrative Performed At Transthoracic Echocardiography Report (T TE) [facility] Demographics Patient NameJeremi CARTWRIGHTte of Study12/16/2019 ADDISON HODGES Gender Male Visit [id number] Race Unknown [id number] Number Date of 1945 Referringluis english MD Physician Age 74 year(s) [facility] Retail Experience Specialist Katlyn Reyes CS Interpreting Sadie Sandoval MD Procedure Type of Study TTE procedure:2DECHO W DOPPLER(CW/PW/COLOR) (Routine) Indications:Dyspnea/SOB. Clinical History ARTHRITIS,CAD,DM,HTN,TIA,HYPERTRIGLYCERD EMIA Height: 70 inches Weight: 97.98 kg (216 lbs) BSA: 2.16 m^2 BMI: 30.99 kg/m^2 HR: 70 bpm BP: 136/80 mmHg Summary 1. Normal LV size. Mid to distal septum, distal inferolateral and apex appear hypokinetic. LVEF by Tony's method of disk assessment is lower limits of normal (50%) . 2. Normal RV size and function. 3. Grade 1 diastolic dysfunction (impaired relaxation and low-normal LA pressure). 4. Estimated peak systolic PA pressure is 35-40 mmHg (borderline criteria for pulmonary hypertension) . Previous Study No prior studies available for comparis on. Signature Findings Technical Quality: Technically adequate exam. Left Ventricle The LV apex is incompletely visualized due to fo reshortening. LV endocardium is adequate ly vi sualized with IV ultrasound enhancing ag ent. The le ft ventricle is chamber size (by vol ind ex) is no rmal (male - LVED vol - 34-74ml/m2). No evidence of LV hypertrophy. Mid to distal septum, di stal in ferolateral and apex appear hypokinetic. The ot her LV segments have low normal contract ility . Gl obal LV systolic function lower limits o f normal . LVEF by Tony's method of disk assessm ent is lo wer limits of normal (50%) . Grade 1 dulce stolic dy sfunction (impaired relaxation and low-n ormal LA pr essure). Left AtriumLA is incompletely visualized, size based on l inear me asurement. LA size is normal . Right VentricleRV chamber size appears normal by limited views . Gl obal RV systolic function is normal . Right Atrium RA cavity size is normal . Aortic Valve Mild AoV cusp calcification. A trace of aortic regurgitation. Mitral Valve Mild mitral annular calcification. Mi ld MV leaflet thickening. Tr joseph mitral regurgitation. Tricuspid ValveMild tricuspid regurgitation. Es timated peak systolic PA pressure is 35- 40 mmHg (b orderline criteria for pulmonary hyperte nsion) . Pulmonic Valve Normal PV structure and function by limited views an d Doppler. AortaAortic root size (SInus of Valsalva diameter) i s no rmal . PericardiumNo pericardial effusion is visualized. IVC/SVC/PA/PV/PleuralThe estimated RA pressure by IVC dynamics 5-10mmHg . Chambers/Structures Left Atrium LA Dimension: 4.04 cm Left Ventricle LVIDd: 5.43 cm LVIDs: 3.81 cm LV Septum Diastolic: 1.19 cm LV PW Diastolic: 0.94 cmLV FS: 29.8 % LVEDV Tony's:137.27 ml LVESV Tony's:65.6 ml LVEDVI: 64 ml/m^2 LVEF Tony's: 52.2 %LVESV I: 30 ml/m^2 LVOT Diameter: 2.15 cm Aorta Ao Root S of Destiny.: 3.52 cm Doppler/Quantitative Measurements Mitral Valve MV Peak E-Wave: 0.75 m/sMV Peak A-Wave: 0.69 m/s E/A Ratio: 1. 08 Peak Gradient: 2.25 mmHg Deceleration Time: 276.5 msec MV Chandan. Peak: Tissue Doppler E' Lateral Velocity: 0.06 m/s E/E': 12.43 Aortic Valve Peak Velocity: 1.69 m/sMean Velocity: 1.15 m/s Peak Gradient: 11.48 mmHgMean Gradient: 6.09 mmHg AV Area (continuity): 2.05 cm^2 AV VTI: 31.22 cm AV DVI: 0.57 LVOT Peak Velocity: 0.91 m/s Peak Gradient: 3.3 mmHg Mean Velocity: 0.55 m/s Mean Gradient: 1.48 mmHg LVOT Diameter: 2.15 cmLVOT VTI: 17.67 cm LVOT Area: 3.63 cm^2LVOT SV:64.12 ml LVOT CO: 4.49 l/min LVOT CI: 2.08 l/min/m^2 Tricuspid Valve TR Velocity: 2.75 m/s TR Gradient: 30.24 mmHg Procedure Note Interface, External Ris In - 12/16/2019 2:50 PM CDT Transthoracic Echocardiography Report (TTE) Demographics Patient Name DONTRELL CARTWRIGHT Date of Study 12/16/2019 ADDISON HODGES Gend er Male Visit Number [id number] Race Unknown Room Number 1431 Number Date of 1945 Refe MD Violetta Beltran Age 74 year(s) Sotoo ramos Roberts [facility] Jozef Retail Experience Specialist Katlyn Reyes RDCS Inte rpretin Sadie Guillen Phys arcenio Sandoval MD Procedure Type of Study TTE procedure:2DECHO W DOPPLE R(CW/PW/COLOR) (Routine) Indications:Dyspnea/SOB. Clinical History ARTHRITIS,CAD,DM,HTN,TIA,HYPERTRIGLYCERD EMIA Height: 70 inches Weight: 97.98 kg (216 lbs) BSA: 2.16 m^2 BMI: 30.99 kg/m^2 HR: 70 bpm BP: 136/80 mmHg Summary 1. Normal LV size. Mid to distal septum , distal inferolateral and apex appear hypokinetic. LVEF by Tony's method of disk assess ment is lower limits of normal (50%) . 2. Normal RV size and function. 3. Grade 1 diastolic dysfunction (impai red relaxation and low-normal LA pressure). 4. Estimated peak systolic PA pressure is 35-40 mmHg (borderline criteria for pulmonary hypertension) . Previous Study No prior studies available for comparis on. Signature Findings Technical Quality: Technically adequate exam. Left Ventricle The LV apex is i ncompletely visualized due to foreshortening. LV endocardium is adequately visualized with IV ultrasound enhancing agent. The left ventricle i s chamber size (by vol index) is normal (male - L VITOR vol - 34-74ml/m2). No evidence of LV hypertroph y. Mid to distal septum, distal inferolateral an d apex appear hypokinetic. The other LV segment s have low normal contractility . Global LV systol ic function lower limits of normal . LVEF by Simpso n's method of disk assessment is lower limits of normal (50%) . Grade 1 diastolic dysfunction (imp aired relaxation and low-normal LA pressure). Left Atrium LA is incomplete ly visualized, size based on linear measurement. LA size is blue l . Right Ventricle RV chamber size appears normal by limited views . Global RV systol ic function is normal . Right Atrium RA cavity size i s normal . Aortic Valve Mild AoV cusp ca lcification. A trace of aorti c regurgitation. Mitral Valve Mild mitral ismael lar calcification. Mild MV leaflet thickening. Trace mitral reg urgitation. Tricuspid Valve Mild tricuspid r egurgitation. Estimated peak s ystolic PA pressure is 35-40 mmHg (borderline crit eria for pulmonary hypertension) . Pulmonic Valve Normal PV struct ure and function by limited views and Doppler. Aorta Aortic root size (SInus of Valsalva diameter) is normal . Pericardium No pericardial e ffusion is visualized. IVC/SVC/PA/PV/Pleural The estimated RA pressure by IVC dynamics 5-10mmHg . Chambers/Structures Left Atrium LA Dimension: 4.04 cm Left Ventricle LVIDd: 5.43 cm LVIDs: 3.81 cm LV Septum Diastolic: 1.19 cm LV PW Diastolic: 0.94 cm LV FS: 29.8 % LVEDV Tony's:137.27 ml LVESV Tony's:65.6 ml LVEDVI: 64 ml/m^2 LVEF Tony's: 52.2 % LVESVI: 30 ml/m^2 LVOT Diameter: 2.15 cm Aorta Ao Root S of Destiny.: 3.52 cm Doppler/Quantitative Measurements Mitral Valve MV Peak E-Wave: 0.75 m/s M V Peak A-Wave: 0.69 m/s E /A Ratio: 1.08 P eak Gradient: 2.25 mmHg D eceleration Time: 276.5 msec MV Chandan. Peak: Tissue Doppler E' Lateral Velocity: 0.06 m/s E /E': 12.43 Aortic Valve Peak Velocity: 1.69 m/s Mean Velocity: 1.15 m/s Peak Gradient: 11.48 mmHg Mean Gradient: 6.09 mmHg AV Area (continuity): 2.05 cm^2 AV VTI: 31.22 cm AV DVI: 0.57 LVOT Peak Velocity: 0.91 m/s Pea k Gradient: 3.3 mmHg Mean Velocity: 0.55 m/s Daxa n Gradient: 1.48 mmHg LVOT Diameter: 2.15 cm LVO T VTI: 17.67 cm LVOT Area: 3.63 cm^2 LVO T SV:64.12 ml LVOT CO: 4.49 l/min LVO T CI: 2.08 l/min/m^2 Tricuspid Valve TR Velocity: 2.75 m/s TR Gradient: 30.24 mmHg Performing Organization Address City/State/Zipcode Phone Number [facility] Carotid doppler bilateral (12/16/2019 7:51 AM CDT) Ejection Fraction [facility] Specimen Impressions Performed At Right Impression [facility] 1. There is <50% diameter reduction (approximately 39% by 2-D measurement) in the internal carotid artery with a peak velocity of 88.4 cm/sec and heterogeneous plaque. 2. There is non-occluding plaque in the external carotid artery. 3. There is non-occluding plaque in the common carotid artery. 4. The vertebral artery flow is antegrade and normal. 5. The subclavian artery is within normal limits where visualized. Left Impression 1. There is <50% diameter reduction (approximately 46% by 2-D measurement) in the internal carotid artery with a peak velocity of 104 cm/sec and heterogeneous shadowing plaque. 2. The external carotid artery could not be visualized, stenosis or occlusion cannot be ruled out. 3. There is non-occluding plaque in the common carotid artery. 4. The vertebral artery flow is antegrade and normal. 5. The subclavian artery is within normal limits where visualized. Conclusions Summary Carotid duplex scanning and color flow imaging were performed bilaterally. The arteries were adequately visualized. The bilateral internal carotid arteries had <50% hemodynamically insignificant stenosis (approximately 39% by 2-D measurement on the right, approximately 46% by 2-D measurement on the left) with heterogeneous shadowing plaque. The left external carotid artery was not visualized, therefore stenosis or occlusion could not be ruled out. The vertebral artery flow was antegrade and normal bilaterally. The subclavian arteries were patent with normal flow bilaterally where visualized. Signature Velocities are measured in cm/s ; Diameters are measured in cm Carotid Right Measurements + +----+----+-----+ +---- + + !Location !PSV !EDV !Angle!%Stenosis 2D!%Stenosis Doppler!Tortuosity ! + +----+----+-----+ +---- + + !Prox CCA !91.3!18.6!60 !! ! ! + +----+----+-----+ +---- + + !Dist CCA !62.7!19.9!60 !! ! ! + +----+----+-----+ +---- + + !Prox ICA !65!18.2!60 !! ! ! + +----+----+-----+ +---- + + !Dist ICA !88.4!37.3!60 !! ! ! + +----+----+-----+ +---- + + !Prox ECA !132 !19.7!52 !! ! ! + +----+----+-----+ +---- + + !Vertebral!51.8!17.5!60 !! ! ! + +----+----+-----+ +---- + + !Prox Subclavian!102 !0 !60 !! ! ! + +----+----+-----+ +---- + + - There is antegrade vertebral flow noted on the right side. - Additional Measurements:ICAPSV/CCAPSV 1.41.ICAEDV/CCAEDV 2.01. Carotid Left Measurements + +----+----+-----+ +---- + + !Location !PSV !EDV !Angle!%Stenosis 2D!%Stenosis Doppler!Tortuosity ! + +----+----+-----+ +---- + + !Prox CCA !70.2!16.2!60 !! ! ! + +----+----+-----+ +---- + + !Dist CCA !49.7!18.6!60 !! ! ! + +----+----+-----+ +---- + + !Prox ICA !99.4!37.9!60 !! ! ! + +----+----+-----+ +---- + + !Dist ICA !104 !41.6!60 !! ! ! + +----+----+-----+ +---- + + !Vertebral!62.7!23!60 !! ! ! + +----+----+-----+ +---- + + !Prox Subclavian!171 !0 !60 !! ! ! + +----+----+-----+ +---- + + - There is antegrade vertebral flow noted on the left side. - Additional Measurements:ICAPSV/CCAPSV 2.09.ICAEDV/CCAEDV 2.57. Narrative Performed At LAB - Carotid Duplex Study [facility] Demographics Patient Name Gary CARTWRIGHT of Study 12/16/2019 ADDISON HODGES [id number] Visit Number [id number] Gender Male Accession Number [id number] Date of Birth1945 [facility] Number [id number] Physician SonographRobi Mcintosh T Interpreting Physician NiniMD Procedure Type of Study: Cerebral: Carotid, CAROTID DOPPLER, CHARLEE ATERAL. Indications for Study:Preop. Patient Status:Routine. Study Location:Portable. Technical Quality:Technically Difficult. Risk Factors History of Disease + +--- -+ + !Diagnosis !Date!Comments ! + +--- -+ + !History/Risk Factors: !!CAD, DM, HTN ! + +--- -+ + Procedure Note Interface, External Ris In - 12/16/2019 8:21 AM CDT PV LAB - Carotid Duplex Study Demographics Patient Name DONTRELL CARTWRIGHT ate of Study 12/16/2019 ADDISON HODGES A PHARMAJET 74 Visit Number [id number] G bharat Male Accession Number [id number] D ate of 1945 Referring [facility] Leonardo tate Number [id number] Physician Analytics Manager Joycelyn Mcintosh T I nterpreting Helen Terrazas MD Procedure Type of Study: Cerebral: Carotid, CAROTID DOPPLER, CHARLEE ATERAL. Indications for Study:Preop. Patient Status:Routine. Study Location:Portable. Technical Quality:Technically Difficult. Risk Factors History of Disease + ------+----+ + !Diagnosis !Date!Comments ! + ------+----+ + !History/Risk Factors: ! !CAD, DM, HTN ! + ------+----+ + Impressions Right Impression 1. There is <50% diameter reduction (telma roximately 39% by 2-D measurement) in the internal carotid artery with a pe ak velocity of 88.4 cm/sec and heterogeneous plaque. 2. There is non-occluding plaque in the external carotid artery. 3. There is non-occluding plaque in the common carotid artery. 4. The vertebral artery flow is antegrad e and normal. 5. The subclavian artery is within blue l limits where visualized. Left Impression 1. There is <50% diameter reduction (telma roximately 46% by 2-D measurement) in the internal carotid artery with a pe ak velocity of 104 cm/sec and heterogeneous shadowing plaque. 2. The external carotid artery could not be visualized, stenosis or occlusion cannot be ruled out. 3. There is non-occluding plaque in the common carotid artery. 4. The vertebral artery flow is antegrad e and normal. 5. The subclavian artery is within blue l limits where visualized. Conclusions Summary Carotid duplex scanning and color flow imaging were performed bilaterally. The arteries were adequately visualized . The bilateral internal carotid arteries had <50% hemodynamically insig nificant stenosis (approximately 39% by 2-D measurement on the right, ap proximately 46% by 2-D measurement on the left) with heterogeneous shadowi ng plaque. The left external carotid artery was not visualized, ther efore stenosis or occlusion could not be ruled out. The vertebral artery flow was antegrade and normal bilaterally. The subclavian arteries we re patent with normal flow bilaterally where visualized. Signature Velocities are measured in cm/s ; Diamet ers are measured in cm Carotid Right Measurements + +----+----+-----+------- -----+ + + !Location !PSV !EDV !Angle!%Stenos is 2D!%Stenosis Doppler!Tortuosity ! + +----+----+-----+------- -----+ + + !Prox CCA !91.3!18.6!60 ! ! ! ! + +----+----+-----+------- -----+ + + !Dist CCA !62.7!19.9!60 ! ! ! ! + +----+----+-----+------- -----+ + + !Prox ICA !65 !18.2!60 ! ! ! ! + +----+----+-----+------- -----+ + + !Dist ICA !88.4!37.3!60 ! ! ! ! + +----+----+-----+------- -----+ + + !Prox ECA !132 !19.7!52 ! ! ! ! + +----+----+-----+------- -----+ + + !Vertebral !51.8!17.5!60 ! ! ! ! + +----+----+-----+------- -----+ + + !Prox Subclavian!102 !0 !60 ! ! ! ! + +----+----+-----+------- -----+ + + - There is antegrade vertebral flow no phoenix on the right side. - Additional Measurements:ICAPSV/CCAPS V 1.41.ICAEDV/CCAEDV 2.01. Carotid Left Measurements + +----+----+-----+------- -----+ + + !Location !PSV !EDV !Angle!%Stenos is 2D!%Stenosis Doppler!Tortuosity ! + +----+----+-----+------- -----+ + + !Prox CCA !70.2!16.2!60 ! ! ! ! + +----+----+-----+------- -----+ + + !Dist CCA !49.7!18.6!60 ! ! ! ! + +----+----+-----+------- -----+ + + !Prox ICA !99.4!37.9!60 ! ! ! ! + +----+----+-----+------- -----+ + + !Dist ICA !104 !41.6!60 ! ! ! ! + +----+----+-----+------- -----+ + + !Vertebral !62.7!23 !60 ! ! ! ! + +----+----+-----+------- -----+ + + !Prox Subclavian!171 !0 !60 ! ! ! ! + +----+----+-----+------- -----+ + + - There is antegrade vertebral flow no phoenix on the left side. - Additional Measurements:ICAPSV/CCAPS V 2.09.ICAEDV/CCAEDV 2.57. Performing Organization Address [facility] Hospital[facility] Phone Number [facility] Lipid panel (12/16/2019 4:09 AM CDT) Triglycerides 133 mg/dL [facility] Cholesterol 101 mg/dL [facility] HDL 26 mg/dL [facility] LDL Calculated 48 mg/dL [facility] Specimen Blood Narrative Performed At Triglyceride Reference Range: [facility] Low Risk <150 [id number] High Risk 200-499 Very High Risk>=500 Cholesterol Reference Range: Low Risk <200 [id number] High Risk>240 HDL Cholesterol Reference Range: Low Risk >=60 High Risk <40 LDL Cholesterol Reference Range: Optimal<100 Near [id number] Very High >=190 Educational Resource Coordinator ID - JIMENEZ Cho Performing Organization Address City/[facility]/Zipcode Phone Number [facility] [address] [place] [address] ANTOINETTE KISER, tyrese (12/15/2019 11:01 PM CDT) ABO Grouping [facility] Rh Factor POS [facility] Specimen Blood Performing Organization Address City/[facility]/Zipcode Phone Number [facility] [address] [place] [address] Comprehensive metabolic panel (12/15/2019 6:25 PM CDT) Protein, Total 7.5 6.0 - 8.3 gm/dL [facility] Albumin 4.2 3.5 - 5.0 g/dL [facility] Alkaline Phosphatase 62 40 - 150 U/L [facility] Total Bilirubin 0.7 0.2 - 1.2 mg/dL [facility] Sodium 137 136 - 145 meq/L [facility] Potassium 3.6 3.5 - 5.1 meq/L [facility] Chloride 99 98 - 107 meq/L [facility] CO2 26 22 - 29 meq/L [facility] BUN 13 7 - 21 mg/dL [facility] Creatinine 0.83 0.57 - 1.25 mg/dL [facility] Glucose 177 (H) 70 - 105 mg/dL [facility] Calcium 10.0 8.4 - 10.2 mg/dL [facility] AST 44 (H) 5 - 34 U/L [facility] ALT 27 6 - 55 U/L [facility] EGFR 90Comment: ESTIMATED GFR mL/min/1.[address] [facility] IS NOT ACCURATE [facility] CREATININE CLEARANCE IN PREDICTING GLOMERULAR FILTRATION RATE. ESTIMATED GFR IS NOT APPLICABLE FOR DIALYSIS PATIENTS. Specimen Blood Narrative Performed At Educational Resource Coordinator ID - BS [facility] C[facility] Performing Organization Address City/[facility]/Zipcode Phone Number [facility] [address] [place] [address] CENTER after 05/20/2019 Insurance Payer Benefit Plan / Group Subscriber ID Type Phone A ddress MEDICARE MEDICARE A B xxxxxxxxxxx Medicare HUMANA - MGD CARE HUMANA INDEMNITY xxxxxxxxx PPO CDC REVIEW CDC REVIEW xxxxx[place] [address] [place] [address] Advance Directives For more information, please contact:SIRISHA [facility] HospitalGarageSkinsSwed[facility] BallardCrpmiy[address] [place], [place] [phone] Code Status Date Activated Date Inactivated Comments Full Code 02/21/2020 5:53 PM 02/24/2020 4:11 PM This code status was determined by: Patient Full Code 12/15/2019 5:55 PM 12/17/2019 3:12 PM This code status was determined by: Patient
--- OUTSIDE RECORDS SUMMARY | 2020-05-20 10:55 | XMS REPORT | Continuity of Care Document ---
:1945 Author Organization [facility] t Address [address] [place] [address] Care Team Providers Name Role Phone Meet Lo MD Attending Clinician Jude JOEL, Rodney Attending Clinician Unavailable QUYNH Attending Clinician Unavailable Quynh WESTFALL Attending Clinician Vivian Dean MD Attending Clinician Claribel WESTFALL Attending Clinician Junior Hunter MD Attending Clinician Sandee Carmona MD Attending Clinician Slava Gardner MD Attending Clinician SLAVA GARDNER Attending Clinician Unavailable VIVIAN DEAN Admitting Clinician Unavailable SLAVA GARDNER Admitting Clinician Unavailable Payers Payer Name Policy Policy Number Effective Expiration Source Type Date Date MEDICAREMEDICARE A xxxxxxxxxxx [facility] - MGD CAREHUMANA [facility] INDEMNITYxxxxxxxxxPPO [facility] CDC REVIEWCDC xxxxxxxx [facility] REVIEWxxxxxxxx[place] [address] [facility] Problems Condition Condition Condition Status Onset Resolution Last Treating Co mments Source Name Details Category Date Date Treatment Clinician Date Coronary Coronary Disease Active [facility] artery artery 6-14 [facility] - disease disease 00:00: Medical involving involving 00 [facility] [place] [facility] heart without without angina angina pectoris, pectoris, unspecifie unspecifie d vessel d vessel or lesion or lesion type type CAD, CAD, Disease Active [facility] Acute Acute Disease Active [facility] respirator respirator kes - y y Medical insufficie insufficie Ce nter ncy ncy Acute Acute Disease Active [facility] blood loss blood loss [facility] anemia anemia [facility] Hyperglyce Hyperglyce Disease Active [facility] galen [facility] Allergies, Adverse Reactions, Alerts This patient has no known allergies or adverse reactions. Family History Family Member Diagnosis Comments Start Date Stop Date Source Natural father Heart disease [facility] Natural mother Heart disease [facility] Social History Social Habit Start Date Stop Date Quantity Comments Source Sex Assigned At [facility] History of tobacco 1977-12-14 Current smoker [facility] - use 00:00:00 [facility] Smoking Status Start Date Stop Date Source Former smoker 2020-04-20 00:00:00 2020-04-20 00:00:00 [facility] Medications Ordered Filled Start Stop Current Ordering Indication Dosage Frequency Signature Comments Components Source Medication Medication Date Date Medication? Clinician (SIG) Name Name rosuvastati Yes hardening 20mg QD Take [address] n (CRESTOR) 7-29 of the by mouth Heather kes - 40 MG 11:14: arteries daily . Medic al tablet 26 due to Center plaque buildup gabapentin 2019- No neuropathic 600mg Take [address] (NEURONTIN) 7-29 07-29 pain mg by [facility] - 300 MG 11:13: 00:00 mouth 3 Medical capsule 27 :00 (three) Center times daily as needed . aspirin 81 2020- No 162mg QD Take [address] MG chewable 7-29 07-29 mg by [facility] - tablet 11:13: 00:00 mouth Medical 10 :00 daily. Center furosemide 2020- No visible 40mg Q.5D Take [address] (LASIX) 40 6-17 06-17 water by mouth 2 L ukes - MG tablet 10:08: 00:00 retention (two) M edical 34 :00 times Center daily. acetaminoph 2019- No 1{tbl} Take [address] en-codeine 02-23- tablet by Elvira Garcia (TYLENOL 10:08: 00:00 mouth Medical #3) 300-30 34 :00 every 4 Center mg per (four) tablet hours as needed for Pain. metoprolol 2020- Yes 50mg Q.5D Take [address] tartrate 02-23- tablet (50 Luke s - (LOPRESSOR) 00:00: 23:59 mg total) Medical 50 MG 00 :00 by mouth 2 Center tablet (two) times daily. apixaban 2019- No 5mg Q.5D Take [address] (ELIQUIS) 5 02-23 07-29 tablet (5 Heather kes - mg Tab 00:00: 00:00 mg total) Medic al tablet 00 :00 by mouth 2 Center (two) times daily. HYDROcodone 2019- No 1{tbl} Take [address] -acetaminop 02-23- tablet by Heather mcbride (NORCO 00:00: 23:59 mouth Medic al 7.5-325) 00 :00 every 6 Center 7.5-325 mg (six) per tablet hours as needed for Pain for up to 10 days. Max Daily Amount: 4 tablets ibuprofen 2019- No 200mg Take [address] (ADVIL,MOTR 6 06-14 mg by [facility] - IN) 200 MG 08:31: 18:04 mouth Medic al tablet 31 :46 every 6 Center (six) hours as needed for Pain. clopidogreL 2020- No 75mg QD Take [address] (PLAVIX) 75 4- 04-10 tablet (75 L ukes - mg tablet 00:00: 23:59 mg total) Me dical 00 :00 by mouth Center daily. isosorbide 2019-2019- No 30mg QD Take [address] mononitrate -06 14-17 tablet (30 L ukes - (IMDUR) 30 00:00: 00:00 mg total) M edical MG 24 hr 00 :00 by mouth Center tablet daily. metoprolol 2019- No high blood 50mg Q.5D Take [address] tartrate 12-16 04-09 pressure by mouth 2 [facility] - (LOPRESSOR) 11:17: 00:00 (two) Medi radha 50 MG 18 :00 times Center tablet daily. liraglutide 2019-0 Yes type 2 1.8mg QD Inject 1.[address] 0.6 mg/0.1 09 diabetes mg [facility] - mL (18 mg/3 11:17: mellitus subcutaneo Medical mL) PnIj 01 usly daily Cente r . ranolazine 2020- No 500mg Q.5D Take [address] (RANEXA) 12-16 04-09 tablet [facility] - 500 MG 12 00:00: 23:59 (500 mg Medi radha hr tablet 00 :00 total) by Cente r mouth 2 (two) times daily. metoprolol 2019- No high blood 75mg Q.5D Take [address] tartrate 75 12-16 06-17 pressure by mouth 2 [facility] - mg Tab 00:00: 00:00 (two) Medical 00 :00 times Center daily. abatacept 2019-0 Yes Q28D Inject [facility] (ORENCIA) - intravenou Luke s - infusion 17:51: sly every Medi radha 35 28 days. Center empaglifloz 2019-0 Yes 25mg QD Take [address] in 12-14 by mouth [facility] - (JARDIANCE) 16:45: daily. Medi radha 25 mg 27 Center tablet insulin 2019-0 Yes type 2 100U QD Inject [address] glargine -07 diabetes Units [facility] - (LANTUS) 16:26: mellitus subcutaneo Medical 100 unit/mL 50 usly every Ce nter injection morning Use as directed . benazepriL 2019- Yes high blood 20mg QD Take [address] (LOTENSIN) 4-07 pressure by mouth L ukes - 20 MG 16:26: daily. Medical tablet 50 Center metFORMIN 2019-0 Yes type 2 1000mg Q.5D Take 1,[address] (GLUCOPHAGE -07 diabetes mg by Elvira es - -XR) 500 MG 16:26: mellitus mouth 2 Medical 24 hr 49 (two) Center tablet times daily. lansoprazol 2019-0 Yes gastroesoph 30mg QD Take [address] e -07 ageal by mouth [facility] - (PREVACID) 16:26: reflux nightly. M edical 30 MG 49 disease Center capsule nitroglycer Yes acute .4mg Place 0.4 [facility] in 4-07 attack of mg under [facility] - (NITROSTAT) 16:17: angina the tongue Medical 0.4 MG [address] 54 every 5 Center tablet (five) minutes as needed for Chest pain Put 1 pill under tongue every 5min as needed for chest pain.No more than 3 doses in 15min.Call 911 if pain is unrelieved 5min after 1st dose . Vital Signs Vital Name Observation Time Observation Value Comments Source Systolic blood 2020-04-20 11:14:00 137 mm[Hg] [facility] Diastolic blood 2020-04-20 11:14:00 76 mm[Hg] [facility] Heart rate 2020-04-20 11:14:00 93 /min [facility] Body temperature 2020-04-20 11:14:00 37.33 Carmita [facility] Respiratory rate 2020-04-20 11:14:00 14 /min [facility] Oxygen saturation in 2020-04-20 11:14:00 93 /min [facility] Arterial blood by Medical Ce nter Pulse oximetry Body weight Measured 2020-04-06 11:08:00 91.627 kg [facility] BMI 2020-04-06 11:08:00 28.28 kg/m2 [facility] Body height 2020-03-08 10:22:00 180 cm [facility] Procedures Procedure Date / Time Performing Clinician Source Performed VASCULAR DIAGRAM -SCAN 2020-03-02 15:24:20 Provider, Default [facility] RHYTHM STRIP - SCAN 2020-02-25 14:01:41 Provider, Default [facility] CARDIAC CATH REPORT - SCAN 2020-02-25 14:01:37 Provider, Default [facility] RHYTHM STRIP - SCAN 2020-02-24 15:51:32 Provider, [facility] REPORT OF PROCEDURE - 2020-02-24 13:51:02 Provider, Default [facility] ENDOSCOPY [facility] POCT-GLUCOSE METER 2020-02-24 08:03:00 Andrea Dean [facility] MAGNESIUM 2020-02-24 05:25:00 Malvin Aguilar [facility] PHOSPHORUS 2020-02-24 05:25:00 Malvin Aguilar [facility] BASIC METABOLIC PANEL (7) 2020-02-24 05:25:00 Malvin Aguilar [facility] CBC W/PLT COUNT & AUTO 2020-02-24 05:25:00 Malvin Aguilar [facility] POCT-GLUCOSE METER 2020-02-23 21:23:00 Jremaine Andrea [facility] TRANSFUSION SERVICE REPORT 2020-02-23 18:13:[address] [facility] POCT-GLUCOSE METER 2020-02-23 16:53:00 Andrea Dean [facility] POCT-GLUCOSE METER 2020-02-23 11:17:00 Andrea Dean [facility] POCT-GLUCOSE METER 2020-02-23 10:05:00 Jermaine Andrea [facility] ECG 12-LEAD 2020-02-23 09:10:53 Unknown, Hl7 Doctor [facility] ECG 12-LEAD 2020-02-23 09:10:06 Unknown, Hl7 Doctor [facility] POCT-GLUCOSE METER 2020-02-23 07:59:00 [facility] BASIC METABOLIC PANEL (7) 2020-02-23 07:57:00 Malvin Aguilar [facility] MAGNESIUM 2020-02-23 07:57:00 Malvin Aguilar [facility] PHOSPHORUS 2020-02-23 07:57:00 Malvin Aguilar [facility] POCT-GLUCOSE METER 2020-02-23 07:29:00 Andrea Dean [facility] XR CHEST 1 VIEW 2020-02-23 07:07:00 Denver Zarate [facility] es - PORTABLE/BEDSIDE [facility] POCT-GLUCOSE METER 2020-02-23 06:16:00 Andrea Dean [facility] POCT-GLUCOSE METER 2020-02-23 04:55:00 Alineumairlevon Andrea [facility] POCT-GLUCOSE METER 2020-02-23 04:08:00 AlineumarilevonAndrea [facility] KETONE, BLOOD 2020-02-23 04:02:00 Mario [facility] LACTIC ACID, ARTERIAL 2020-02-23 04:02:[address] [facility] MAGNESIUM 2020-02-23 03:25:00 Shakila Martin [facility] CBC (HEMOGRAM ONLY) 2020-02-23 03:25:00 Daryn Moise [facility] LACTATE DEHYDROGENASE 2020-02-23 03:25:00 Daryn Moise [facility] ([facility]) [facility] BASIC METABOLIC PANEL (7) 2020-02-23 03:25:00 Malvin Aguilar [facility] HEMOGLOBIN A1C 2020-02-23 03:25:00 Shakila Martin [facility] BLOOD GAS, ARTERIAL 2020-02-23 03:25:[address] [facility] POCT-GLUCOSE METER 2020-02-23 03:19:00 Andrea Dean [facility] POCT-GLUCOSE METER 2020-02-23 02:05:00 Andrea Dean [facility] POCT-GLUCOSE METER 2020-02-23 01:13:00 Andrea Dean [facility] MAGNESIUM 2020-02-23 00:26:00 Malvin Aguilar [facility] PHOSPHORUS 2020-02-23 00:26:00 Malvin Aguilar [facility] LACTIC ACID, VENOUS 2020-02-23 00:26:[address] [facility] BASIC METABOLIC PANEL (7) 2020-02-23 00:26:[address] [facility] LACTATE DEHYDROGENASE 2020-02-23 00:26:00 Shakila Martin [facility] (LDH) [facility] POCT-GLUCOSE METER 2020-02-23 00:11:00 Andrea Dean [facility] BASIC METABOLIC PANEL (7) 2020-02-22 21:23:[address] [facility] LACTIC ACID, ARTERIAL 2020-02-22 21:23:[address] [facility] BLOOD GAS, ARTERIAL 2020-02-22 21:23:[address] [facility] KETONE, BLOOD 2020-02-22 21:23:00 Shakila Martin [facility] POCT-GLUCOSE METER 2020-02-22 21:00:00 Andrea Dean deepa [facility] POCT-GLUCOSE METER 2020-02-22 18:51:00 Andrea Dean [facility] TRANSFUSION SERVICE REPORT 2020-02-22 18:00:[address] [facility] GLUCOSE-STAT LAB 2020-02-22 17:49:00 Shyam Kerr [facility] BASIC METABOLIC PANEL (7) 2020-02-22 17:49:00 Malvin Aguilar [facility] MAGNESIUM 2020-02-22 17:49:00 Malvin Aguilar [facility] PHOSPHORUS 2020-02-22 17:49:00 Malvin Aguilar [facility] LACTIC ACID, ARTERIAL 2020-02-22 17:49:00 Malvin Aguilar [facility] CREATINE KINASE (CK) 2020-02-22 17:49:00 Candida Vela I [facility] POCT-GLUCOSE METER 2020-02-22 17:22:00 [facility] BASIC MET[facility]OLIC PANEL (7) 2020-02-22 14:51:00 Malvin Aguilar [facility] LACTIC ACID, ARTERIAL 2020-02-22 14:51:00 Lauren [facility] PROTHROMBIN TIME/INR 2020-02-22 14:51:00 Lauren [facility] APTT 2020-02-22 14:51:00 Lauren [facility] CBC W/PLT COUNT & AUTO 2020-02-22 14:51:00 Lauren [facility] PREPARE RBC 2020-02-22 14:09:00 [facility] POCT-ACT 2020-02-22 13:36:00 Andrea Dean [facility] BLOOD GAS, ARTERIAL 2020-02-22 13:16:09 Erondu Mgbechi U [facility] SODIUM NA-STAT LAB 2020-02-22 13:16:09 Erondu, Mgbechi U [facility] POTASSIUM-STAT LAB 2020-02-22 13:16:09 Erondu, Mgbechi U [facility] GLUCOSE-STAT LAB 2020-02-22 13:16:09 Erondu, Mgbechi U [facility] HGB/HCT (H&H) - STAT LAB 2020-02-22 13:16:09 Erondu Mgbechi U [facility] REMOVAL,IMPELLA PUMP 2020-02-22 12:00:00 Wally, Maycol [facility] POCT-ACT 2020-02-22 11:44:00 Andrea Dean deepa [facility] POCT-ACT 2020-02-22 11:29:00 Andrea Dean deepa [facility] POCT-ACT 2020-02-22 11:00:00 Andrea Dean deepa [facility] POCT-ACT 2020-02-22 10:18:00 [facility] POCT-ACT 2020-02-22 09:37:00 Andrea Dean [facility] POCT-ACT 2020-02-22 09:16:00 Andrea Dean [facility] PCI W/ IMPELLA MCR - IP 2020-02-22 07:30:00 [facility] PROC ONLY [facility] ECG 12-LEAD 2020-02-21 18:39:13 [facility] SARS-COV2/RT-PCR ([facility] & 2020-02-21 18:28:00 [facility], [facility] - REF LABS) [facility] BASIC METABOLIC PANEL (7) 2020-02-21 18:27:00 [facility] PT/APTT 2020-02-21 18:27:00 [facility] MAGNESIUM 2020-02-21 18:27:00 [facility], [facility] PLATELET AGGREGATION: 2020-02-21 18:27:00 [facility] FUNCTION SCREEN [facility] TYPE AND SCREEN, AUTOMATED 2020-02-21 18:27:00 [facility] CBC W/PLT COUNT & AUTO 2020-02-21 18:27:00 [facility] ED ECG INTERPRETATION 2020-02-21 17:30:07 Eleazar Beauchamp [facility] PERIPHERAL VASCULAR REPORT 2019-12-18 21:11:44 Provider, [facility] Scanning [facility] RHYTHM STRIP - SCAN 2019-12-18 10:10:25 Provider, [facility] TRANSFUSION SERVICE REPORT 2019-12-17 17:50:31 Provider, [facility] Scanning [facility] ARTERIAL DOPPLER LEGS 2019-12-17 15:27:00 Kristine [facility] POCT-GLUCOSE METER 2019-12-17 07:58:00 Suize Gardner [facility] BASIC METABOLIC PANEL (7) 2019-12-17 03:43:00 Suzie Gardner [facility] CBC (HEMOGRAM ONLY) 2019-12-17 03:43:00 Yasmin, Suzie Hyrobela [facility] TROPONIN I 2019-12-17 03:43:00 Yasmin, Suzie Hyunna [facility] TROPONIN I 2019-12-16 21:36:00 Yasmin, Suzie Hyunna [facility] ECHOCARDIOGRAM REPORT - 2019-12-16 21:20:50 Provider, Default [facility] POCT-GLUCOSE METER 2019-12-16 21:14:00 Yasmin, Suzie Sancheza [facility] TRANSFUSION SERVICE REPORT 2019-12-16 17:50:42 Provider, [facility] APTT 2019-12-16 15:56:00 Yasmin, Suzie Sancheza [facility] TROPONIN I 2019-12-16 15:56:00 Yasmin, Suzie Daniela [facility] POCT-GLUCOSE METER 2019-12-16 12:17:00 Yasmin, Suzie Hyrobela [facility] 2D ECHO W/ DOPPLER 2019-12-16 11:29:24 Leonardo Carmona [facility] (CW/PW/COLOR) [facility] APTT 2019-12-16 10:13:00 Yasmin, Suzie Sancheza [facility] XR CHEST 1 VIEW 2019-12-16 09:56:00 Yasmin, Suzie Pedersen [facility] - PORTABLE/BEDSIDE Medical Center TROPONIN I 2019-12-16 09:29:00 Yasmin, Suzie Hyrobela [facility] POCT-GLUCOSE METER 2019-12-16 08:00:00 Yasmin, Suzie Hyunna [facility] CAROTID DOPPLER BILATERAL 2019-12-16 07:51:00 Leonardo Carmona [facility] BASIC METABOLIC PANEL (7) 2019-12-16 04:09:00 Yasmin, Suzie Hyunn a [facility] LIPID PANEL 2019-12-16 04:09:00 Yasmin, Suzie Hyunna [facility] HEMOGLOBIN A1C 2019-12-16 04:09:00 Yasmin, Suzie Hyunna [facility] ABORH, MANUAL 2019-12-15 23:01:00 Adeline Reddy Jael [facility] TYPE AND SCREEN, AUTOMATED 2019-12-15 22:40:00 Yasmin, Suzie Blanc maria guadalupe [facility] POCT-GLUCOSE METER 2019-12-15 21:34:00 Yasmin, Suzie Hyrivka [facility] PLATELET AGGREGATION: 2019-12-15 18:25:00 Maycol Lo [facility] - FUNCTION SCREEN [facility] COMPREHENSIVE METABOLIC 2019-12-15 18:25:00 Yasmin, Suzie Hyrobela [facility] APTT 2019-12-15 18:25:00 [facility]INR 2019-12-15 18:25:00 Yasmin, Suzie Hyunna [facility] ECG 12-LEAD 2019-12-15 18:12:29 Yasmin, Suzie Daniela [facility] XR CHEST 1 VIEW 2019-12-15 17:59:00 Yasmin, Suzie Pedersen [facility] PORTABLE/BEDSIDE [facility] POCT-GLUCOSE METER 2019-12-15 15:58:00 Yasmin, [facility] Plan of Care Planned Activity Planned Date Details Comments Source Future Scheduled 2020-05-10 INFLUENZA VACCINE (#1) [facility] - Test 00:00:00 [code = INFLUENZA Medical Ce nter VACCINE (#1)] Future Scheduled 2015-06-21 PNEUMOCOCCAL [address] - Test 00:00[facility]00 [facility] - PCV13) [code = PNEUMOCOCCAL 65+ LOW/MEDIUM RISK (2 of 2 - PCV13)] Future Scheduled 2010-07-[address] [facility] - Test 00:00:00 WELLNESS (YEAR 2 or Medical Center FIRST YEAR if no IPPE) [code = MEDICARE ANNUAL WELLNESS (YEAR 2 or FIRST YEAR if no IPPE)] Future Scheduled 1945 Screening for [facility] es - Test 00:00:00 malignant neoplasm of Medica l Center colon (procedure) [code = 039392067] Results Test Description Test Time Test Comments Results Result Comments Source Platelet Aggregation: Function Screen 2020-02-28 14:06:00 Test Item Value Reference Range Interpretation Comme [facility] Pathologist: (test code = 2622) Daily Pina MD (electronic signature) Platelets (test code = 2656) 222 150- 450 K/CU MM ADP (test code = 21958-2) 6 % 62-100 L Platelet Rich Plasma (test code 278 200- 300 k/cu mm = 2134) Plt. Function Screen Pattern of disaggregation Interpretation (test code = present with ADP which may be 4655) characteristic of P2Y12 inhibitor effect. Correlation with medication history is required. MAEVE (test code = MAEVE) Platelet Function Screen results may be falsely low with platelet counts<75,000/cu mm.Payroll Auditor ID - [id number] Lab Interpretation (test code = Abnormal 64244-7) [facility] FUNCTION [id number] 14:06:00 Test Item Value Reference Range Interpretation Comments [id number] Daily Pina MD (BEAKER) (test code = (electronic signature) 2622) PLATELET COUNT AGG 222 K/CU MM 150-450 (BEAKER) (test code = 2656) ADP (BEAKER) (test code 6 % 62-100 L = 4654) PLATELET RICH 278 k/cu mm 200-300 PLASMA(BEAKER) (test code = 2134) PLATELET FUNCTION Pattern of SCREEN INTERPRETATION disaggregation present (BEAKER) (test code = with ADP which may be 4655) characteristic of P2Y12 inhibitor effect. Correlation with medication history is required. Platelet Function Screen results may be falsely low with platelet counts<75,000/cu mm.Payroll Auditor ID- [id number]-Glucose [id number] 08:14:00 Test Item Value Reference Range Interpretation Comments POC-Glucose Meter (test 148 mg/dL 70-110 H : TE STED AT [facility] code = 1538) [address] [facility] [place], 7[address] 30: Payroll Auditor/Techni sandip ID = [id number] for CHAVO MAHMOOD BEL Lab Interpretation (test Abnormal code = 34172-9) [facility] [id number] 08:14:00 Test Item Value Reference Range Interpretation Comments POC-GLUCOSE METER 148 mg/dL 70-110 H : TESTED A T [facility] 6720 (BEAKER) (test code = [place], 1538) [address]: Payroll Auditor/Techni sandip ID = [id number] for CHAVO MAHMOOD BEL Basic Metabolic [id number] 06:48:00 Test Item Value Reference Range Interpretation Comments Sodium (test code = 138 meq/L 555-434 5050-2) Potassium (test code = 3.9 meq/L 3.5-5.1 2823-3) Chloride (test code = 107 meq/L 98-107 2075-0) CO2 (test code = 24 meq/L 22-29 2028-9) BUN (test code = 9 mg/dL 7-21 3094-0) Creatinine (test code 0.92 mg/dL 0.57-1.25 = 2160-0) Glucose (test code = 130 mg/dL 70-105 H 2345-7) Calcium (test code = 8.4 mg/dL 8.4-10.2 85405-2) EGFR (test code = 80 mL/min/1.73 sq m [facility] [place] [address]-3) NOT ACCURATE CREATININE CLEARANCE IN PREDICTING GLOMERULAR FILTRATION RATE . ESTIMATED GFR I S NOT APPLICABLE FOR DIALYSIS PATIENTS. MAEVE (test code = MAEVE) Payroll Auditor ID - PIAYA L Lab Interpretation Abnormal (test code = 33865-5) [facility]2020-06-17 06:48:00 Test Item Value Reference Range Interpretation Comments Magnesium (test code = 2.4 mg/dL 1.6-2.6 13091-6) MAEVE (test code = MAEVE) Payroll Auditor ID - PIAYA L Lab Interpretation (test Normal code = 20898-8) [facility]2020-06-17 06:48:00 Test Item Value Reference Range Interpretation Comments Phosphorus (test code = 2.5 mg/dL 2.3-4.7 2777-1) MAEVE (test code = MAEVE) Payroll Auditor ID - PIAYA L Lab Interpretation (test Normal code = 74746-8) [facility]OS[facility]US2020-06-17 06:48:00 Test Item Value Reference Range Interpretation Comments PHOSPHORUS (BEAKER) (test code = 2.5 mg/dL 2.3-4.7 604) Payroll Auditor JORGE LUIS HAAS [id number] 06:48:00 Test Item Value Reference Range Interpretation Comments MAGNESIUM (BEAKER) (test code = 2.4 mg/dL 1.6-2.6 627) Payroll Auditor JORGE LUIS HAAS LBASIC METABOLIC [id number] 06:48:00 Test Item Value Reference Range Interpretation Comments SODIUM (BEAKER) 138 meq/L 136-145 (test code = 381) POTASSIUM (BEAKER) 3.9 meq/L 3.5-5.1 (test code = 379) CHLORIDE (BEAKER) 107 meq/L 98-107 (test code = 382) CO2 (BEAKER) (test 24 meq/L 22-29 code = 355) BLOOD UREA NITROGEN 9 mg/dL 7-21 (BEAKER) (test code = 354) CREATININE (BEAKER) 0.92 mg/dL 0.57-1.25 (test code = 358) GLUCOSE RANDOM 130 mg/dL 70-105 H (BEAKER) (test code = 652) CALCIUM (BEAKER) 8.4 mg/dL 8.4-10.2 (test code = 697) EGFR (BEAKER) (test 80 mL/min/1.73 ESTIMA JIMI GFR IS code = 1092) sq m NOT ACCURATE CREATININE CLEARANCE IN PREDICTING GLOMERULAR FILTRATION RATE . ESTIMATED GFR I S NOT APPLICABLE FOR DIALYSIS PATIEN TS. Payroll Auditor ID Jose HAAS LCBC with platelet count + automated [id number] 06:11:00 Test Item Value Reference Range Interpretation Comments WBC (test code = 6690-2) 8.0 3.5- 10.5 K/L RBC (test code = 789-8) 3.16 4.63- 6.08 M/L L MCHC (test code = 786-4) 32.0 32.3- 36.5 GM/DL L Hematocrit (test code = 4544-3) 30.3 % 40.1-51 L MCV (test code = 787-2) 95.9 fL 79-92.2 H MCH (test code = 785-6) 30.7 pg 25.7-32.2 RDW (test code = 788-0) 14.8 % 11.6-14.4 H Platelets (test code = 777-3) 128 150- 450 K/CU MM L MPV (test code = 46402-5) 10.3 fL 9.4-12.4 nRBC (test code = 413) 0 0- 0 /100 WBC % Neutros (test code = 429) 62 % % Lymphs (test code = 430) 22 % % Monos (test code = 431) 14 % % Eos (test code = 432) 1 % % Baso (test code = 437) 1 % # Neutros (test code = 670) 4.93 1.78- 5.38 K/L # Lymphs (test code = 414) 1.77 1.32- 3.57 K/L # Monos (test code = 415) 1.14 0.30- 0.82 K/L H # Eos (test code = 416) 0.10 0.04- 0.54 K/L # Baso (test code = 417) 0.04 0.01- 0.08 K/L Immature Granulocytes-Relative 1 % 0-1 (test code = 2801) Lab Interpretation (test code = Abnormal 29055-8) [facility] W/PLT COUNT & AUTO [id number] 06:11:00 Test Item Value Reference Range Interpretation Comments WHITE BLOOD CELL COUNT (BEAKER) 8.0 K/ L 3.5-10.5 (test code = 775) RED BLOOD CELL COUNT (BEAKER) 3.16 M/ L 4.63-6.08 L (test code = 761) HEMOGLOBIN (BEAKER) (test code = 9.7 GM/DL 13.7-17.5 L 410) HEMATOCRIT (BEAKER) (test code = 30.3 % 40.1-51.0 L 411) MEAN CORPUSCULAR VOLUME (BEAKER) 95.9 fL 79.0-92.2 H (test code = 753) MEAN CORPUSCULAR HEMOGLOBIN 30.7 pg 25.7-32.2 (BEAKER) (test code = 751) MEAN CORPUSCULAR HEMOGLOBIN CONC 32.0 GM/DL 32.3-36.5 L (BEAKER) (test code = 752) RED CELL DISTRIBUTION WIDTH 14.8 % 11.6-14.4 H (BEAKER) (test code = 412) PLATELET COUNT (BEAKER) (test 128 K/CU MM 150-450 L code = 756) MEAN PLATELET VOLUME (BEAKER) 10.3 fL 9.4-12.4 (test code = 754) NUCLEATED RED BLOOD CELLS 0 /100 WBC 0-0 (BEAKER) (test code = 413) NEUTROPHILS RELATIVE PERCENT 62 % (BEAKER) (test code = 429) LYMPHOCYTES RELATIVE PERCENT 22 % (BEAKER) (test code = 430) MONOCYTES RELATIVE PERCENT 14 % (BEAKER) (test code = 431) EOSINOPHILS RELATIVE PERCENT 1 % (BEAKER) (test code = 432) BASOPHILS RELATIVE PERCENT 1 % (BEAKER) (test code = 437) NEUTROPHILS ABSOLUTE COUNT 4.93 K/ L 1.78-5.38 (BEAKER) (test code = 670) LYMPHOCYTES ABSOLUTE COUNT 1.77 K/ L 1.32-3.57 (BEAKER) (test code = 414) MONOCYTES ABSOLUTE COUNT (BEAKER) 1.14 K/ L 0.30-0.82 H (test code = 415) EOSINOPHILS ABSOLUTE COUNT 0.10 K/ L 0.04-0.54 (BEAKER) (test code = 416) BASOPHILS ABSOLUTE COUNT (BEAKER) 0.04 K/ L 0.01-0.08 (test code = 417) IMMATURE GRANULOCYTES-RELATIVE 1 % 0-1 PERCENT (BEAKER) (test code = 2801) POCT-GLUCOSE [id number] 21:40:00 Test Item Value Reference Range Interpretation Comments POC-GLUCOSE METER 168 mg/dL 70-110 H : TESTED A T [facility] 6720 ([facility]) (test code = [facility] Jania [employer], 1538) [address]: Payroll Auditor/Techni sandip ID = [id number] for GREYSON BURNETTE MARCE POCT-GLUCOSE [id number] 17:04:00 Test Item Value Reference Range Interpretation Comments POC-GLUCOSE METER 159 mg/dL 70-110 H : Notified RN/MD: ([facility]) (test code = TESTED AT [facility] 6720 1538) [facility] [employer] [address]: Payroll Auditor/Techni sandip ID = [id number] for ROMINA RODRIGUEZ ECG 12 [id number] 12:43:36Interface, External Ris In - 02/23/2020 12:43 PM CDTVentricular Rate 74 BPMAtrial Rate 74 BPMP-R Interval 174 msQRS Duration 88 msQ-T Interval 396 msQTC Calculation(Nava) 439 msP [place] 46 degreesR [place] 10 degreesT [place] 99 degreesSinus rhythm with Premature atrial complexes and Premature ventricular complexes or Fusion complexesT wave inversion in aVLAbnormal ECGWhen compared with ECG of 23-FEB-2020 09:10,Fusion complexes are now PresentPremature ventricular complexes are now PresentPremature atrial complexes are now PresentQRS axis has shifted from leftT waves are no longer negative in I, V3-V6QT has shortenedConfirmed by MD IDALIA, EVA ([id number]) on 02/23/2020 12:43:33 [facility] [id number] 11:29:00 Test Item Value Reference Range Interpretation Comments POC-GLUCOSE METER 151 mg/dL 70-110 H : Notified RN/MD: (JUSTINE) (test code = TESTED AT [facility] 6720 1538) [facility], [address]: Payroll Auditor/Techni sandip ID = [id number] for ROMINA RODRIGUEZ POCT-GLUCOSE [id number] 10:17:00 Test Item Value Reference Range Interpretation Comments POC-GLUCOSE METER 167 mg/dL 70-110 H : Notified RN/MD: (JUSTINE) (test code = TESTED AT [facility] 6720 1538) [facility], [address]: Payroll Auditor/Techni sandip ID = [id number] for ROMINA RODRIGUEZ [id number] 08:36:00 Test Item Value Reference Range Interpretation Comments PHOSPHORUS (BEAKER) (test code = 2.4 mg/dL 2.3-4.7 604) Payroll Auditor ID Jose DELGADO [id number] 08:36:00 Test Item Value Reference Range Interpretation Comments MAGNESIUM (BEAKER) (test code = 2.3 mg/dL 1.6-2.6 627) Payroll Auditor ID Jose DELGADO FBASIC METABOLIC [id number] 08:36:00 Test Item Value Reference Range Interpretation Comments SODIUM (BEAKER) 134 meq/L 136-145 L (test code = 381) POTASSIUM (BEAKER) 3.8 meq/L 3.5-5.1 (test code = 379) CHLORIDE (BEAKER) 104 meq/L 98-107 (test code = 382) CO2 (BEAKER) (test 23 meq/L 22-29 code = 355) BLOOD UREA NITROGEN 10 mg/dL 7-21 (BEAKER) (test code = 354) CREATININE (BEAKER) 0.91 mg/dL 0.57-1.25 (test code = 358) GLUCOSE RANDOM 179 mg/dL 70-105 H (BEAKER) (test code = 652) CALCIUM (BEAKER) 8.4 mg/dL 8.4-10.2 (test code = 697) EGFR (BEAKER) (test 81 mL/min/1.73 ESTIMA JIMI GFR IS code = 1092) sq m NOT ACCURATE CREATININE CLEARANCE IN PREDICTING GLOMERULAR FILTRATION RATE . ESTIMATED GFR I S NOT APPLICABLE FOR DIALYSIS PATIEN TS. Payroll Auditor ID Jose DELGADO FPOCT-GLUCOSE [id number] 08:10:00 Test Item Value Reference Range Interpretation Comments POC-GLUCOSE METER 166 mg/dL 70-110 H : TESTED A T [facility] 6720 (BEAKER) (test code = [employer] [place], 1538) [address]: Payroll Auditor/Techni sandip ID = [id number] for ROMINA RODRIGUEZ Hemoglobin [id number] 08:09:00 Test Item Value Reference Range Interpretation Comments Hemoglobin A1C (test code = 4548-4) 8.8 % 4.3-6.1 H Lab Interpretation (test code = Abnormal 40178-3) [facility] [id number] 08:09:00 Test Item Value Reference Range Interpretation Comments HEMOGLOBIN A1C (BEAKER) (test code = 8.8 % 4.3-6.1 H 368) POCT-GLUCOSE [id number] 07:42:00 Test Item Value Reference Range Interpretation Comments POC-GLUCOSE METER 181 mg/dL 70-110 H : TESTED A T [facility] 6720 (BEAKER) (test code = [facility] [place], 1538) [address]: Payroll Auditor/Techni sandip ID = [id number] for MA RIMUTHU, RAMAMANI RAD, CHEST, 1 VIEW, NON [id number] 07:27:00Reason for exam:->s/p PCI, impella removalShould this be performed at the bedside?->YesFINAL REPORT CLINICAL HISTORY: s/p PCI, impella removal TECHNIQUE: 1 view ofthe chest. COMPARISON: 12/16/2019 IMPRESSION: There are no focal infiltrates or effusions. The cardiomediastinal silhouette is magnified by technique. The osseous structures appear intact. There is mild elevation of the right hemidiaphragm. Signed: Dorothy Ferreira Verified Date/Time: 02/23/2020 07:27:25 Reading Location: [facility] Radiology Reading Room XR chest 1 view portable / [id number] 07:27:00Interface, External Ris In - 02/23/2020 7:29 AM CDTFINAL REPORT CLINICAL HISTORY: s/p PCI, impella removal TECHNIQUE: 1 view of the chest. COMPARISON: 12/16/2019 IMPRESSION: There are no focal infiltrates or effusions. The cardiomediastinal silhouette is magnified by technique. The osseous structures appear intact. There is mild elevation of the right hemidiaphragm. Signed: Dorothy Ferreira Verified Date/Time: 02/23/2020 07:27:25 Reading Location: [facility] Radiology [facility] [id number] 06:27:00 Test Item Value Reference Range Interpretation Comments POC-GLUCOSE METER 150 mg/dL 70-110 H : TESTED A T [facility] 6720 ([employer]) (test code = [place], 1538 [address]: Payroll Auditor/Techni sandip ID = [id number] for SYLVIA ELLIS POCT-GLUCOSE [id number] 05:06:00 Test Item Value Reference Range Interpretation Comments POC-GLUCOSE METER 136 mg/dL 70-110 H : TESTED A T [facility] 6720 ([employer]) (test code = [place], 1538) [address]: Payroll Auditor/Techni sandip ID = [id number] for SYLVIA ELLIS Lactic Acid, [id number] 04:40:00 Test Item Value Reference Range Interpretation Comments Lactate, Art (test code = 1.2 mmol/L 0.5-2.2 2874) MAEVE (test code = MAEVE) Payroll Auditor ID - ARLENE Mccormick Lab Interpretation (test Normal code = 54134-6) [facility], [id number] 04:40:00 Test Item Value Reference Range Interpretation Comments LACTATE BLOOD ARTERIAL (2) 1.2 mmol/L 0.5-2.2 (BEAKER) (test code = 2874) Payroll Auditor ID - ARLENE MANetone, [id number] 04:27:00 Test Item Value Reference Range Interpretation Comments Ketones, Blood (test code = 1103) 0.8 mmol/L <0.4 H Lab Interpretation (test code = Abnormal 03956-2) [facility] HospitalKETONE, [id number] 04:27:00 Test Item Value Reference Range Interpretation Comments KETONES, BLOOD (BEAKER) (test code 0.8 mmol/L <0.4 H = 1103) POCT-GLUCOSE [id number] 04:19:00 Test Item Value Reference Range Interpretation Comments POC-GLUCOSE METER 170 mg/dL 70-110 H : TESTED A T [facility] 6720 (BEAKER) (test code = BREN[facility] [place] [employer], 1538) [address]: Payroll Auditor/Techni sandip ID = [id number] for SYLVIA ELLIS LACTATE DEHYDROGENASE (LDH)2020-02-23 04:06:00 Test Item Value Reference Range Interpretation Comments LACTATE DEHYDROGENASE (BEAKER) (test 245 U/L 125-220 H code = 635) Payroll Auditor ID - JIMENEZ MLactate dehydrogenase (LDH)2020-02-23 03:59:00 Test Item Value Reference Range Interpretation Comments LDH (test code = 2532-0) 201 U/L 125-220 MAEVE (test code = MAEVE) Payroll Auditor ID - ARLENE Mccormick Lab Interpretation (test Normal code = 60148-9) [facility]UM2020-06-16 03:59:00 Test Item Value Reference Range Interpretation Comments MAGNESIUM (BEAKER) (test code = 2.3 mg/dL 1.6-2.6 627) Payroll Auditor JORGE LUIS MEIERASIC METABOLIC [id number] 03:59:00 Test Item Value Reference Range Interpretation Comments SODIUM (BEAKER) 135 meq/L 136-145 L (test code = 381) POTASSIUM (BEAKER) 4.0 meq/L 3.5-5.1 (test code = 379) CHLORIDE (BEAKER) 103 meq/L 98-107 (test code = 382) CO2 (BEAKER) (test 24 meq/L 22-29 code = 355) BLOOD UREA NITROGEN 11 mg/dL 7-21 (BEAKER) (test code = 354) CREATININE (BEAKER) 0.94 mg/dL 0.57-1.25 (test code = 358) GLUCOSE RANDOM 180 mg/dL 70-105 H (BEAKER) (test code = 652) CALCIUM (BEAKER) 8.3 mg/dL 8.4-10.2 L (test code = 697) EGFR (BEAKER) (test 78 mL/min/1.73 ESTIMA JIMI GFR IS code = 1092) sq m NOT ACCURATE CREATININE CLEARANCE IN PREDICTING GLOMERULAR FILTRATION RATE . ESTIMATED GFR I S NOT APPLICABLE FOR DIALYSIS PATIEN TS. Payroll Auditor JORGE LUIS JACOBS WLACTATE DEHYDROGENASE (LDH)2020-02-23 03:59:00 Test Item Value Reference Range Interpretation Comments LACTATE DEHYDROGENASE (BEAKER) (test 201 U/L 125-220 code = 635) Payroll Auditor JORGE LUIS MEIERlood gas, [id number] 03:46:00 Test Item Value Reference Range Interpretation Comments pH, Arterial (test code = 2744-1) 7.45 7.35-7.45 pCO2, Arterial (test code = 34 35- 45 mmHg L 2018-) pO2, Arterial (test code = 140 80- 90 mmHg H 3-7) O2 Sat, Arterial (test code = 98.9 % 96-97 H 8-6) HCO3, Arterial (test code = 23 mmol/L 21-29 1959-4) Base Excess, Arterial (test code -0.2 mmol/L -2-3 = 1925-7) Patient Temperature (test code = 37.0 C 8310-5) FIO2 (test code = 1819) 21 % Lab Interpretation (test code = Abnormal 32598-3) [facility] HospitalBLOOD GAS, [id number] 03:46:00 Test Item Value Reference Range Interpretation Comments PH ARTERIAL (BEAKER) (test code = 7.45 7.35-7.45 383) PCO2 ARTERIAL (BEAKER) (test code 34 mmHg 35-45 L = 384) PO2 ARTERIAL (BEAKER) (test code 140 mmHg 80-90 H = 385) O2 SATURATION ARTERIAL (BEAKER) 98.9 % 96.0-97.0 H (test code = 386) HCO3 ARTERIAL (BEAKER) (test code 23 mmol/L 21-29 = 388) BASE EXCESS ARTERIAL (BEAKER) -0.2 mmol/L -2.0-3.0 (test code = 387) PATIENT TEMPERATURE (BEAKER) 37.0 C (test code = 1818) FIO2 (BEAKER) (test code = 1819) 21.0 % CBC (Hemogram only)2020-02-23 03:38:00 Test Item Value Reference Range Interpretation Comments WBC (test code = 6690-2) 9.7 3.5- 10.5 K/L RBC (test code = 789-8) 3.29 4.63- 6.08 M/L L MCHC (test code = 786-4) 33.1 32.3- 36.5 GM/DL L Hematocrit (test code = 4544-3) 30.8 % 40.1-51 L MCV (test code = 787-2) 93.6 fL 79-92.2 H MCH (test code = 785-6) 31.0 pg 25.7-32.2 RDW (test code = 788-0) 14.5 % 11.6-14.4 H Platelets (test code = 777-3) 127 150- 450 K/CU MM L MPV (test code = 95564-6) 10.1 fL 9.4-12.4 nRBC (test code = 413) 0 0- 0 /100 WBC Lab Interpretation (test code = Abnormal 26004-3) [facility])2020-02-23 03:38:00 Test Item Value Reference Range Interpretation Comments WHITE BLOOD CELL COUNT (BEAKER) 9.7 K/ L 3.5-10.5 (test code = 775) RED BLOOD CELL COUNT (BEAKER) 3.29 M/ L 4.63-6.08 L (test code = 761) HEMOGLOBIN (BEAKER) (test code = 10.2 GM/DL 13.7-17.5 L 410) HEMATOCRIT (BEAKER) (test code = 30.8 % 40.1-51.0 L 411) MEAN CORPUSCULAR VOLUME (BEAKER) 93.6 fL 79.0-92.2 H (test code = 753) MEAN CORPUSCULAR HEMOGLOBIN 31.0 pg 25.7-32.2 (BEAKER) (test code = 751) MEAN CORPUSCULAR HEMOGLOBIN CONC 33.1 GM/DL 32.3-36.5 (BEAKER) (test code = 752) RED CELL DISTRIBUTION WIDTH 14.5 % 11.6-14.4 H (BEAKER) (test code = 412) PLATELET COUNT (BEAKER) (test 127 K/CU MM 150-450 L code = 756) MEAN PLATELET VOLUME (BEAKER) 10.1 fL 9.4-12.4 (test code = 754) NUCLEATED RED BLOOD CELLS 0 /100 WBC 0-0 (BEAKER) (test code = 413) POCT-GLUCOSE [id number] 03:30:00 Test Item Value Reference Range Interpretation Comments POC-GLUCOSE METER 174 mg/dL 70-110 H : TESTED A T [facility] 6720 (BEAKER) (test code = [facility], 153) [address]: Payroll Auditor/Techni sandip ID = [id number] for BENNETT-MILLE R, SYLVIA POCT-GLUCOSE [id number] 02:16:00 Test Item Value Reference Range Interpretation Comments POC-GLUCOSE METER 153 mg/dL 70-110 H : TESTED A T [facility] 6720 (BEAKER) (test code = [facility], 1538) [address]: Payroll Auditor/Techni sandip ID = [id number] for BENNETT-MILLE R, SYLVIA POCT-GLUCOSE [id number] 01:23:00 Test Item Value Reference Range Interpretation Comments POC-GLUCOSE METER 145 mg/dL 70-110 H : TESTED A T [facility] 6720 (BEAKER) (test code = [facility], 1538) [address]: Payroll Auditor/Techni sandip ID = [id number] for SYLVIA ELLIS [id number] 00:59:00 Test Item Value Reference Range Interpretation Comments PHOSPHORUS (BEAKER) (test code = 2.3 mg/dL 2.3-4.7 604) Payroll Auditor ID - [id number] 00:59:00 Test Item Value Reference Range Interpretation Comments MAGNESIUM (BEAKER) (test code = 2.5 mg/dL 1.6-2.6 627) Payroll Auditor ID - DBBASIC METABOLIC [id number] 00:59:00 Test Item Value Reference Range Interpretation Comments SODIUM (BEAKER) 135 meq/L 136-145 L (test code = 381) POTASSIUM (BEAKER) 4.2 meq/L 3.5-5.1 (test code = 379) CHLORIDE (BEAKER) 103 meq/L 98-107 (test code = 382) CO2 (BEAKER) (test 24 meq/L 22-29 code = 355) BLOOD UREA NITROGEN 13 mg/dL 7-21 (BEAKER) (test code = 354) CREATININE (BEAKER) 1.00 mg/dL 0.57-1.25 (test code = 358) GLUCOSE RANDOM 158 mg/dL 70-105 H (BEAKER) (test code = 652) CALCIUM (BEAKER) 8.6 mg/dL 8.4-10.2 (test code = 697) EGFR (BEAKER) (test 73 mL/min/1.73 ESTIMA JIMI GFR IS code = 1092) sq m NOT ACCURATE CREATININE CLEARANCE IN PREDICTING GLOMERULAR FILTRATION RATE . ESTIMATED GFR I S NOT APPLICABLE FOR DIALYSIS PATIEN TS. Payroll Auditor ID - DBLactic acid, [id number] 00:55:00 Test Item Value Reference Range Interpretation Comments Lactate, Venous (test code = 1.65 mmol/L 0.5-2.2 2872) MAEVE (test code = MAEVE) Payroll Auditor ID - DB Lab Interpretation (test Normal code = 20488-2) [facility] Center[facility] ACID, [id number] 00:55:00 Test Item Value Reference Range Interpretation Comments LACTATE BLOOD VENOUS (2) (BEAKER) 1.65 mmol/L 0.50-2.20 (test code = 2872) Payroll Auditor ID - DBPOCT-GLUCOSE [id number] 00:23:00 Test Item Value Reference Range Interpretation Comments POC-GLUCOSE METER 154 mg/dL 70-110 H : TESTED A T [facility] 6720 (BEAKER) (test code = [place], 1538) [address]: Payroll Auditor/Techni sandip ID = [id number] for SYLVIA ELLIS BASIC METABOLIC [id number] 21:52:00 Test Item Value Reference Range Interpretation Comments SODIUM (BEAKER) 136 meq/L 136-145 (test code = 381) POTASSIUM (BEAKER) 4.5 meq/L 3.5-5.1 (test code = 379) CHLORIDE (BEAKER) 103 meq/L 98-107 (test code = 382) CO2 (BEAKER) (test 21 meq/L 22-29 L code = 355) BLOOD UREA NITROGEN 14 mg/dL 7-21 (BEAKER) (test code = 354) CREATININE (BEAKER) 1.01 mg/dL 0.57-1.25 (test code = 358) GLUCOSE RANDOM 227 mg/dL 70-105 H (BEAKER) (test code = 652) CALCIUM (BEAKER) 8.5 mg/dL 8.4-10.2 (test code = 697) EGFR (BEAKER) (test 72 mL/min/1.73 ESTIMA JIMI GFR IS code = 1092) sq m NOT ACCURATE CREATININE CLEARANCE IN PREDICTING GLOMERULAR FILTRATION RATE . ESTIMATED GFR I S NOT APPLICABLE FOR DIALYSIS PATIEN TS. Payroll Auditor ID - DBLACTIC ACID, [id number] 21:49:00 Test Item Value Reference Range Interpretation Comments LACTATE BLOOD ARTERIAL (2) 2.9 mmol/L 0.5-2.2 H (BEAKER) (test code = 2874) Payroll Auditor ID - DBKETONE, [id number] 21:41:00 Test Item Value Reference Range Interpretation Comments KETONES, BLOOD (BEAKER) (test code 1.6 mmol/L <0.4 H = 1103) BLOOD GAS, [id number] 21:33:00 Test Item Value Reference Range Interpretation Comments PH ARTERIAL (BEAKER) (test code = 7.45 7.35-7.45 383) PCO2 ARTERIAL (BEAKER) (test code 31 mmHg 35-45 L = 384) PO2 ARTERIAL (BEAKER) (test code 126 mmHg 80-90 H = 385) O2 SATURATION ARTERIAL (BEAKER) 98.6 % 96.0-97.0 H (test code = 386) HCO3 ARTERIAL (BEAKER) (test code 21 mmol/L 21-29 = 388) BASE EXCESS ARTERIAL (BEAKER) -2.1 mmol/L -2.0-3.0 L (test code = 387) PATIENT TEMPERATURE (BEAKER) 37.5 C (test code = 1818) FIO2 (BEAKER) (test code = 1819) 36.0 % POCT-GLUCOSE [id number] 21:11:00 Test Item Value Reference Range Interpretation Comments POC-GLUCOSE METER 232 mg/dL 70-110 H : TESTED A T [facility] 6720 (BEAKER) (test code = [facility], 1538) [address]: Payroll Auditor/Techni sandip ID = [id number] for [place] POCT-GLUCOSE [id number] 19:19:00 Test Item Value Reference Range Interpretation Comments POC-GLUCOSE METER 276 mg/dL 70-110 H : TESTED A T [facility] 6720 (BEAKER) (test code = [facility], 1538) [address]: Payroll Auditor/Techni sandip ID = [id number] for [place] Creatine Kinase (CK)2020-02-22 19:03:00 Test Item Value Reference Range Interpretation Comments Total CK (test code = 152 U/L 29-200 2157-6) MAEVE (test code = MAEVE) Payroll Auditor ID - DB Lab Interpretation (test Normal code = 10655-5) [facility] (CK)2020-02-22 19:03:00 Test Item Value Reference Range Interpretation Comments CREATINE KINASE TOTAL (BEAKER) (test 152 U/L 29-200 code = 380) Payroll Auditor ID - DBPOCT-GLUCOSE [id number] 18:43:00 Test Item Value Reference Range Interpretation Comments POC-GLUCOSE METER 311 mg/dL 70-110 H : TESTED A T [facility] 6720 (BEAKER) (test code = [facility], 1538) [address]: Payroll Auditor/Techni sandip ID = [id number] for [place] LACTIC ACID, [id number] 18:30:00 Test Item Value Reference Range Interpretation Comments LACTATE BLOOD ARTERIAL (2) 4.7 mmol/L 0.5-2.2 HH (BEAKER) (test code = 2874) Payroll Auditor ID - [id number] 18:28:00 Test Item Value Reference Range Interpretation Comments PHOSPHORUS (BEAKER) (test code = 4.4 mg/dL 2.3-4.7 604) Payroll Auditor ID - [id number] 18:28:00 Test Item Value Reference Range Interpretation Comments MAGNESIUM (BEAKER) (test code = 1.9 mg/dL 1.6-2.6 627) Payroll Auditor ID - DBBASIC METABOLIC [id number] 18:28:00 Test Item Value Reference Range Interpretation Comments SODIUM (BEAKER) 137 meq/L 136-145 (test code = 381) POTASSIUM (BEAKER) 5.3 meq/L 3.5-5.1 H (test code = 379) CHLORIDE (BEAKER) 103 meq/L 98-107 (test code = 382) CO2 (BEAKER) (test 18 meq/L 22-29 L code = 355) BLOOD UREA NITROGEN 15 mg/dL 7-21 (BEAKER) (test code = 354) CREATININE (BEAKER) 1.09 mg/dL 0.57-1.25 (test code = 358) GLUCOSE RANDOM 302 mg/dL 70-105 H (BEAKER) (test code = 652) CALCIUM (BEAKER) 8.5 mg/dL 8.4-10.2 (test code = 697) EGFR (BEAKER) (test 66 mL/min/1.73 ESTIMA JIMI GFR IS code = 1092) sq m NOT ACCURATE CREATININE CLEARANCE IN PREDICTING GLOMERULAR FILTRATION RATE . ESTIMATED GFR I S NOT APPLICABLE FOR DIALYSIS PATIEN TS. Payroll Auditor ID - DBGlucose-Stat [id number] 18:07:00 Test Item Value Reference Range Interpretation Comments Glucose (test code = 2345-7) 292 mg/dL 70-110 H Lab Interpretation (test code = Abnormal 22617-3) [id number] 18:07:00 Test Item Value Reference Range Interpretation Comments GLUCOSE RANDOM (BEAKER) (test code 292 mg/dL 70-110 H = 652) BASIC METABOLIC [id number] 15:15:00 Test Item Value Reference Range Interpretation Comments SODIUM (BEAKER) 137 meq/L 136-145 (test code = 381) POTASSIUM (BEAKER) 4.9 meq/L 3.5-5.1 Specimen slightly (test code = 379) hemolyzed CHLORIDE (BEAKER) 103 meq/L 98-107 (test code = 382) CO2 (BEAKER) (test 17 meq/L 22-29 L code = 355) BLOOD UREA NITROGEN 15 mg/dL 7-21 (BEAKER) (test code = 354) CREATININE (BEAKER) 1.10 mg/dL 0.57-1.25 Specimen slightly (test code = 358) hemolyzed GLUCOSE RANDOM 295 mg/dL 70-105 H (BEAKER) (test code = 652) CALCIUM (BEAKER) 8.7 mg/dL 8.4-10.2 (test code = 697) EGFR (BEAKER) (test 65 mL/min/1.73 ESTIMA JIMI GFR IS code = 1092) sq m NOT ACCURATE CREATININE CLEARANCE IN PREDICTING GLOMERULAR FILTRATION RATE . ESTIMATED GFR I S NOT APPLICABLE FOR DIALYSIS PATIEN TS. Payroll Auditor ID - DBProthrombin time/[id number] 15:12:00 Test Item Value Reference Range Interpretation Comments Protime (test code = 15.6 11.9- 14.2 H 5902-2) seconds INR (test code = 1.3 <=5.9 6301-6) MAEVE (test code = MAEVE) Effective 02/04/2019: PT Reference Range ChangeNew: 11.9-14.2 Previous: 11.7-14.7 RECOMMENDED COUMADIN/WARFARIN INR THERAPY RANGESSTANDARD DOSE: 2.0-3.0 Includes: PROPHYLAXIS for venous thrombosis, systemic embolization; TREATMENT for venous thrombosis and/or pulmonary embolus.HIGH RISK: Target INR is 2.5-3.5 for patients wiht mechanical heart valves. Lab Interpretation Abnormal (test code = 85897-2) [facility]:12[facility]00 Test Item Value Reference Range Interpretation Comments PTT (test code = 12057-6) 30.1 22.5- 36.0 seconds Lab Interpretation (test code = Normal 80532-8) [facility]/[id number] 15:12:00 Test Item Value Reference Range Interpretation Comments PROTIME (BEAKER) (test code = 15.6 seconds 11.9-14.2 H 759) INR (BEAKER) (test code = 370) 1.3 <=5.9 Effective 02/04/2019: PT Reference Range ChangeNew: 11.9-14.2 Previous: 11.7- 14.7RECOMMENDED COUMADIN/WARFARIN INR THERAPY RANGESSTANDARD DOSE: 2.0-3.0 Includes: PROPHYLAXIS for venous thrombosis, systemic embolization; TREATMENT for venous thrombosis and/or pulmonary embolus.HIGH RISK: Target INR is2.5-3.5 for patients wiht mechanical heart valves.LACTIC ACID, [id number] 15:12:00 Test Item Value Reference Range Interpretation Comments LACTATE BLOOD 3.6 mmol/L 0.5-2.2 H Specimen sligh tly ARTERIAL (2) (BEAKER) hemoly zed (test code = 2874) Payroll Auditor ID - [id number] 15:12:00 Test Item Value Reference Range Interpretation Comments PARTIAL THROMBOPLASTIN TIME 30.1 seconds 22.5-36.0 (BEAKER) (test code = 760) CBC W/PLT COUNT & AUTO [id number] 15:09:00 Test Item Value Reference Range Interpretation Comments WHITE BLOOD CELL COUNT (BEAKER) 13.4 K/ L 3.5-10.5 H (test code = 775) RED BLOOD CELL COUNT (BEAKER) 3.99 M/ L 4.63-6.08 L (test code = 761) HEMOGLOBIN (BEAKER) (test code = 12.2 GM/DL 13.7-17.5 L 410) HEMATOCRIT (BEAKER) (test code = 37.6 % 40.1-51.0 L 411) MEAN CORPUSCULAR VOLUME (BEAKER) 94.2 fL 79.0-92.2 H (test code = 753) MEAN CORPUSCULAR HEMOGLOBIN 30.6 pg 25.7-32.2 (BEAKER) (test code = 751) MEAN CORPUSCULAR HEMOGLOBIN CONC 32.4 GM/DL 32.3-36.5 (BEAKER) (test code = 752) RED CELL DISTRIBUTION WIDTH 14.4 % 11.6-14.4 (BEAKER) (test code = 412) PLATELET COUNT (BEAKER) (test 154 K/CU MM 150-450 code = 756) MEAN PLATELET VOLUME (BEAKER) 9.8 fL 9.4-12.4 (test code = 754) NUCLEATED RED BLOOD CELLS 0 /100 WBC 0-0 (BEAKER) (test code = 413) NEUTROPHILS RELATIVE PERCENT 81 % (BEAKER) (test code = 429) LYMPHOCYTES RELATIVE PERCENT 9 % (BEAKER) (test code = 430) MONOCYTES RELATIVE PERCENT 7 % (BEAKER) (test code = 431) EOSINOPHILS RELATIVE PERCENT 1 % (BEAKER) (test code = 432) BASOPHILS RELATIVE PERCENT 0 % (BEAKER) (test code = 437) NEUTROPHILS ABSOLUTE COUNT 10.93 K/ L 1.78-5.38 H (BEAKER) (test code = 670) LYMPHOCYTES ABSOLUTE COUNT 1.26 K/ L 1.32-3.57 L (BEAKER) (test code = 414) MONOCYTES ABSOLUTE COUNT (BEAKER) 0.94 K/ L 0.30-0.82 H (test code = 415) EOSINOPHILS ABSOLUTE COUNT 0.08 K/ L 0.04-0.54 (BEAKER) (test code = 416) BASOPHILS ABSOLUTE COUNT (BEAKER) 0.04 K/ L 0.01-0.08 (test code = 417) IMMATURE GRANULOCYTES-RELATIVE 1 % 0-1 PERCENT (BEAKER) (test code = 2801) Platelet [id number] 15:01:00 Test Item Value Reference Range Interpretation Comments Platelets (test code = 777-3) 154 150- 450 K/CU MM Lab Interpretation (test code = Normal 83181-6) [id number] 15:01:00 Test Item Value Reference Range Interpretation Comments PLATELET COUNT (BEAKER) (test 154 K/CU MM 150-450 code = 756) Prepare [id number] 14:09:00 Test Item Value Reference Range Interpretation Comments CROSSMATCH (test code = COMPATIBLE 4) Unit ABO (test code = O Pos 9284803) UNIT NUMBER (test code = [id number] 934-0) Status (test code = RETURNED FROM ISSUE 1725431) Blood Bank Product (test RED BLOOD CELLS code = 2263) PRODUCT CODE (test code = E0584G40 933-2) [facility] ACTIVATED CLOTTING [id number] 13:51:00 Test Item Value Reference Range Interpretation Comments Activated Clotting Time 125 sec : 74 -137 seconds, (test code = 441) Baseline: TESTED AT [facility] [address] [facility], [address]: Payroll Auditor/Techni sandip ID = [id number] for CAST RO, SILVERIO [facility][id number] 13:51:00 Test Item Value Reference Range Interpretation Comments ACTIVATED CLOTTING TIME 125 sec : 74 -137 seconds, (BEAKER) (test code = Baseli ne: TESTED AT 441) [facility] [address] [facility], [address] 30: Payroll Auditor/Techni sandip ID = [id number] for CA STRO, SILVERIO HGB/HCT (H&H)-Stat [id number] 13:24:00 Test Item Value Reference Range Interpretation Comments Hemoglobin (test code = 786-4) 10.6 g/dL 13-16.8 L Hematocrit (test code = 4544-3) 31.0 % 40-50 L Lab Interpretation (test code = Abnormal 00250-7) [facility] [id number] 13:24:00 Test Item Value Reference Range Interpretation Comments GLUCOSE RANDOM (BEAKER) (test code 185 mg/dL 70-110 H = 652) HGB/HCT (H&H) - STAT [id number] 13:24:00 Test Item Value Reference Range Interpretation Comments HEMOGLOBIN (BEAKER) (test code = 10.6 g/dL 13.0-16.8 L 410) HEMATOCRIT (BEAKER) (test code = 31.0 % 40.0-50.0 L 411) Sodium Na-Stat [id number] 13:23:00 Test Item Value Reference Range Interpretation Comments Sodium (test code = 2951-2) 136 meq/L 136-145 Lab Interpretation (test code = Normal 95972-7) [facility] [id number] 13:23:00 Test Item Value Reference Range Interpretation Comments Potassium (test code = 2823-3) 3.8 meq/L 3.6-5.5 Lab Interpretation (test code = Normal 43329-4) [facility] [id number] 13:23:00 Test Item Value Reference Range Interpretation Comments SODIUM (BEAKER) (test code = 381) 136 meq/L 136-145 POTASSIUM-STAT [id number] 13:23:00 Test Item Value Reference Range Interpretation Comments POTASSIUM (BEAKER) (test code = 3.8 meq/L 3.6-5.5 379) BLOOD GAS, [id number] 13:23:00 Test Item Value Reference Range Interpretation Comments PH ARTERIAL (BEAKER) (test code = 7.36 7.35-7.45 383) PCO2 ARTERIAL (BEAKER) (test code 31 mmHg 35-45 L = 384) PO2 ARTERIAL (BEAKER) (test code 196 mmHg 80-90 H = 385) O2 SATURATION ARTERIAL (BEAKER) 99.3 % 96.0-97.0 H (test code = 386) HCO3 ARTERIAL (BEAKER) (test code 17 mmol/L 21-29 L = 388) BASE EXCESS ARTERIAL (BEAKER) -7.6 mmol/L -2.0-3.0 L (test code = 387) PATIENT TEMPERATURE (BEAKER) 36.5 C (test code = 1818) FIO2 (BEAKER) (test code = 1819) 50.0 % [id number] 12:04:00 Test Item Value Reference Range Interpretation Comments ACTIVATED CLOTTING TIME 296 sec : 74 -137 seconds, (BEAKER) (test code = Baseli ne: TESTED AT [facility]) [address], [address]: Payroll Auditor/Techni sandip ID = [id number] for ZURI YAP, CHAGO [id number] 11:48:00 Test Item Value Reference Range Interpretation Comments ACTIVATED CLOTTING TIME 257 sec : 74 -137 seconds, (BEAKER) (test code = Baseli ne: TESTED AT 441) [facility] [address] [place] [address], [address]: Payroll Auditor/Techni sandip ID = [id number] for WI LLIA, CHAGO [id number] 11:21:00 Test Item Value Reference Range Interpretation Comments ACTIVATED CLOTTING TIME 307 sec : 74 -137 seconds, (BEAKER) (test code = Baseli ne: TESTED AT 441) [address], [facility] 30: Payroll Auditor/Techni sandip ID = [id number] for RE DIC, BETY [id number] 10:34:00 Test Item Value Reference Range Interpretation Comments ACTIVATED CLOTTING TIME 296 sec : 74 -137 seconds, (BEAKER) (test code = Baseli ne: TESTED AT 441) [place] [address] 30: Payroll Auditor/Techni sandip ID = [id number] for RE DIC, BETY [id number] 09:58:00 Test Item Value Reference Range Interpretation Comments ACTIVATED CLOTTING TIME 290 sec : 74 -137 seconds, (BEAKER) (test code = Baseli ne: TESTED AT 441) [place] [address] 30: Payroll Auditor/Techni sandip ID = [id number] for RE DIC, BETY [id number] 09:36:00 Test Item Value Reference Range Interpretation Comments ACTIVATED CLOTTING TIME 257 sec : 74 -137 seconds, (BEAKER) (test code = Baseli ne: TESTED AT 441) [place] [address] 30: Payroll Auditor/Techni sandip ID = [id number] for RE DIC, BETY SARS-CoV2/RT-PCR (Asymptomatic ONLY)2020-02-21 19:54:00 Test Item Value Reference Range Interpretation Comments SARS-COV2/RT-PCR Not Detected Not Detected, (test code = Negative 16745-7) SARS-COV-2 [facility] PERFORMING LAB (test code = 62117-3) MAEVE (test code = Negative results do not MAEVE) preclude SARS-CoV-2 infection and should not be used as [...] of the Act. Fact Sheet for Healthcare Providers:https://www.Pinoccio/Documents/Xper t%20Xpress%20SARS%20CoV- 2/Fact%20Sheets/302-3802 %03ERPV-MJC-9%20HEALTHCA RE%20PROVIDERS%20FACT%20 SHEET.pdf Fact Sheet for Healthcare Patients:https://www.ReferralCandy/Documents/Xpert %20Xpress%20SARS%20CoV-2 /Fact%20Sheets/302-3801% 60NXRV-QOS-3%20PATIENT%2 0FACT%20SHEET.pdf Performing Laboratory:[facility]OV2/RT-PCR ([facility])2020-02-21 19:54:00 Test Item Value Reference Range Interpretation Comments SARS-COV2/RT-PCR (test Not Detected Not Detected, Negative code = 2094281) SARS-COV-2 PERFORMING LAB [facility] (test code = 2636113) Negative results do not preclude SARS-CoV-2 infection and should not be used as the sole basis for patient management decisions. Negative results must be combined with clinical observations, patient history, and epidemiological information. A false negative result may occur if a specimen is improperly collected, transported or handled.The limit of detection for this assay is 250 copies/mL.This SARS CoV-2 test is a rapid, real-time RT-PCR test intended for the qualitative detection of nucleic acid from SARS-CoV-2 in a nasopharyngeal swab specimen collected from individuals suspected of COVID-19 by their healthcare provider.This test has not been Food and Drug [...] is revoked under Section 564(g) of the Act.Fact Sheet for Healthcare Pro viders:https://www.Criers Podium/Documents/Xpert%20Xpress%20SARS%20CoV-2/Fact%20Sh eets/302-3802%80HQRL-EKO-5%20HEALTHCARE%20PROVIDERS%20FACT%20SHEET.pdfFact Sheet for Healthcare Patients:https://www.SeaMicro/Documents/Xpert%20Xpress%20SARS%20CoV-2/Fact%20Sheets/302-3801%20SARS-COV -2%20PATIENT%20FACT%20SHEET.pdfPerforming Laboratory:[facility], [place] [address]Bdur and screen, automated ([facility] Lab) 2020-02-21 19:37:00 Test Item Value Reference Range Interpretation Comments ABO/RH AUTOMATED (BEAKER) (test O POSITIVE code = 2260) Ab Scrn (test code = 890-4) NEGATIVE [facility] 19:07:00 Test Item Value Reference Range Interpretation Comments MAGNESIUM (BEAKER) (test code = 2.4 mg/dL 1.6-2.6 627) Payroll Auditor ID - DBBASIC METABOLIC [id number] 19:07:00 Test Item Value Reference Range Interpretation Comments SODIUM (BEAKER) 136 meq/L 136-145 (test code = 381) POTASSIUM (BEAKER) 4.4 meq/L 3.5-5.1 (test code = 379) CHLORIDE (BEAKER) 99 meq/L 98-107 (test code = 382) CO2 (BEAKER) (test 20 meq/L 22-29 L code = 355) BLOOD UREA NITROGEN 19 mg/dL 7-21 (BEAKER) (test code = 354) CREATININE (BEAKER) 0.96 mg/dL 0.57-1.25 (test code = 358) GLUCOSE RANDOM 143 mg/dL 70-105 H (BEAKER) (test code = 652) CALCIUM (BEAKER) 10.1 mg/dL 8.4-10.2 (test code = 697) EGFR (BEAKER) (test 76 mL/min/1.73 ESTIMA JIMI GFR IS code = 1092) sq m NOT ACCURATE CREATININE CLEARANCE IN PREDICTING GLOMERULAR FILTRATION RATE . ESTIMATED GFR I S NOT APPLICABLE FOR DIALYSIS PATIEN TS. Payroll Auditor ID - DBCBC W/PLT COUNT & AUTO [id number] 18:56:00 Test Item Value Reference Range Interpretation Comments WHITE BLOOD CELL COUNT (BEAKER) 7.4 K/ L 3.5-10.5 (test code = 775) RED BLOOD CELL COUNT (BEAKER) 4.10 M/ L 4.63-6.08 L (test code = 761) HEMOGLOBIN (BEAKER) (test code = 12.3 GM/DL 13.7-17.5 L 410) HEMATOCRIT (BEAKER) (test code = 38.3 % 40.1-51.0 L 411) MEAN CORPUSCULAR VOLUME (BEAKER) 93.4 fL 79.0-92.2 H (test code = 753) MEAN CORPUSCULAR HEMOGLOBIN 30.0 pg 25.7-32.2 (BEAKER) (test code = 751) MEAN CORPUSCULAR HEMOGLOBIN CONC 32.1 GM/DL 32.3-36.5 L (BEAKER) (test code = 752) RED CELL DISTRIBUTION WIDTH 14.4 % 11.6-14.4 (BEAKER) (test code = 412) PLATELET COUNT (BEAKER) (test 171 K/CU MM 150-450 code = 756) MEAN PLATELET VOLUME (BEAKER) 9.6 fL 9.4-12.4 (test code = 754) NUCLEATED RED BLOOD CELLS 0 /100 WBC 0-0 (BEAKER) (test code = 413) NEUTROPHILS RELATIVE PERCENT 52 % (BEAKER) (test code = 429) LYMPHOCYTES RELATIVE PERCENT 27 % (BEAKER) (test code = 430) MONOCYTES RELATIVE PERCENT 16 % (BEAKER) (test code = 431) EOSINOPHILS RELATIVE PERCENT 4 % (BEAKER) (test code = 432) BASOPHILS RELATIVE PERCENT 0 % (BEAKER) (test code = 437) NEUTROPHILS ABSOLUTE COUNT 3.81 K/ L 1.78-5.38 (BEAKER) (test code = 670) LYMPHOCYTES ABSOLUTE COUNT 2.03 K/ L 1.32-3.57 (BEAKER) (test code = 414) MONOCYTES ABSOLUTE COUNT (BEAKER) 1.19 K/ L 0.30-0.82 H (test code = 415) EOSINOPHILS ABSOLUTE COUNT 0.29 K/ L 0.04-0.54 (BEAKER) (test code = 416) BASOPHILS ABSOLUTE COUNT (BEAKER) 0.03 K/ L 0.01-0.08 (test code = 417) IMMATURE GRANULOCYTES-RELATIVE 1 % 0-1 PERCENT (BEAKER) (test code = 2801) [id number] 18:54:00 Test Item Value Reference Range Interpretation Comments Protime (test code = 14.3 11.9- 14.2 H 5902-2) seconds INR (test code = 1.1 <=5.9 6301-6) PTT (test code = 30.5 22.5- 36.0 26492-1) seconds MAEVE (test code = MAEVE) Effective 02/04/2019: PT Reference Range ChangeNew: 11.9-14.2 Previous: 11.7-14.7 RECOMMENDED COUMADIN/WARFARIN INR THERAPY RANGESSTANDARD DOSE: 2.0-3.0 Includes: PROPHYLAXIS for venous thrombosis, systemic embolization; TREATMENT for venous thrombosis and/or pulmonary embolus.HIGH RISK: Target INR is 2.5-3.5 for patients wiht mechanical heart valves. Lab Interpretation Abnormal (test code = 71836-2) [facility][id number] 18:54:00 Test Item Value Reference Range Interpretation Comments PROTIME (BEAKER) (test code = 14.3 seconds 11.9-14.2 H 759) INR (BEAKER) (test code = 370) 1.1 <=5.9 PARTIAL THROMBOPLASTIN TIME 30.5 seconds 22.5-36.0 (BEAKER) (test code = 760) Effective 02/04/2019: PT Reference Range ChangeNew: 11.9-14.2 Previous: 11.7- 14.7RECOMMENDED COUMADIN/WARFARIN INR THERAPY RANGESSTANDARD DOSE: 2.0-3.0 Includes: PROPHYLAXIS for venous thrombosis, systemic embolization; TREATMENT for venous thrombosis and/or pulmonary embolus.HIGH RISK: Target INR is2.5-3.5 for patients wiht mechanical heart valves.ECG/EKG [id number] 17:30:07Eleazar Beauchamp MD 02/21/2020 6:58 PMECG/EKG InterpretationDate/Time: 02/21/2020 6:57 PMPerformed by: Eleazar Beauchamp MDAuthorized by: Eleazar Beauchamp MD The ECG was interpreted by ED physician. 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 The profundafemoral, superficial femoral, popliteal, posterior tibial,peroneal and anterior tibial arteries werepatent with calcified plaque andbiphasic-monophasic doppler waveforms throughout.3. The DP and PT DASIA were within the noncompressible range.4. There was adequate flow to the digits by PPG waveforms.5. 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 The profunda femoral, superficial femoral and popliteal arteries withcalcified plaque triphasic doppler waveforms throughout.3. There is a >50% stenosis in the distal superficial femoral artery with avelocity of 239/39 cm/sec.4. The PT and DP DASIA's were within the noncompressible range.5. There was adequate flow to the digits by PPG waveforms.6. The great toe pressure is 100 mmHg with a normal TBI of 0.78. Conclusions Summary Arterial pressures and Doppler analysis were performed bilaterally. The arteries were adequately visualized. 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 The profunda femoral, superficial fe moral, popliteal, posterior tibial, peroneal and anterior tibial arteries were patent with calcifiedplaque and biphasic-monophasic doppler waveforms throughout. The DP [...] Left + + + + + + +-- + + + !Location ! !PSV !EDV !Waveform ! !PSV !EDV !Waveform ! + + + + + + + + + + !Mid Common Femoral ! !440 !60 ! ! !266 ! !Triphasic ! + + + + + + + + + + !Prox PFA ! !65 ! !Biphasic ! !62 !!Triphasic ! + + +-------- ---------+ + + + + + + !Prox [...] + + + + + + !Prox KNURLING MACHINE TENDER ! !55 ! !Biphasic ! + + + + + + !Dist KNURLING MACHINE TENDER ! !42 !9 !Biphasic ! + + + + + + !Prox RONN ! !37 !7 !Biphasic ! + + + + + + !Mid RONN ! !53 !9 !Biphasic ! + + + -----+ + + !Dist RONN ! !51 !10 !Biphasic ! + + + + + + !Dist Peroneal ! !34 !9 !Biphasic ! 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 Indications for Study:PVD.Patient Status:Routine.Study Location:Portable.Technical Quality:Adequate visualization. - Results were reported to:@11:20.Risk FactorsHistory of Disease+ ---------+----+ +!Diagnosis !Date!Comments !+ +----+ +!Hi story/Risk Factors: ! 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 The profundafemoral, superficial femoral, popliteal, posterior tibial,peroneal and anterior tibial arteries werepatent with calcified plaque andbiphasic-monophasic doppler waveforms throughout.3. The DP and PT DASIA were within the noncompressible range.4. There was adequate flow to the digits by PPG waveforms.5. 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 The profunda femoral, superficial femoral and popliteal arteries withcalcified plaque triphasic doppler waveforms throughout.3. There is a >50% stenosis in the distal superficial femoral artery with avelocity of 239/39 cm/sec.4. The PT and DP DASIA's were within the noncompressible range.5. There was adequate flow to the digits by PPG waveforms.6. The great toe pressure is 100 mmHg with a normal TBI of 0.78. Conclusions Summary Arterial pressures and Doppler analysis were performed bilaterally. The arteries were adequately visualized. On the right, there is >50% stenosis in the common femoral arterywith triphasic Doppler waveforms and velocity of 440/60 cm/sec. The profunda femoral, superficial fem oral, popliteal, posterior tibial, peroneal and anterior tibial arteries were patent with calcified plaque and biphasic-monophasic doppler waveforms throughout. The DP and PT DASIA were within the noncompressible range. There was adequate flow to the digits by PPG waveforms. The great toe pressure is 84mmHg with a normal TBI of 0.65. On the left, there was >50% stenosis in the common femoral arterywith triphasic Doppler waveforms and velocity of 266/0 [...] in cm/s ; Diameters are measured in cmLE Duplex Measurements Right Left + + + + + + +----- + + + !Location ! !PSV !EDV [...] ! + + + + + + +-- + + + !Dist Popliteal ! !27 !6 !Monophasic ! + + + + + + !Prox KNURLING MACHINE TENDER ! !55 ! !Biphasic ! + + + + + + !Dist KNURLING MACHINE TENDER ! !42 !9 !Biphasic ! + + + + + + !Prox RONN ! !37 !7 !Biphasic ! + + + + + + !Mid RONN ! !53 !9 !Biphasic ! + + + + + + !Dist RONN ! !51 !10 !Biphasic ! + + + + + + !Dist Peroneal ! !34 !9 !Biphasic ! + + + + + +[facility] [id number] 08:09:00 Test Item Value Reference Range Interpretation Comments POC-GLUCOSE METER 221 mg/dL 70-110 H : Notified RN/MD: TESTED (JUSTINE) (test code AT [facility] [address] = 1538) [employer], [facility] 30: Payroll Auditor/Techni sandip ID = [id number] for CECILE DANIEL Troponin [id number] 04:32:00 Test Item Value Reference Range Interpretation Comments Troponin I (test code = 0.34 ng/mL 0-0.03 12382-6) MAEVE (test code = MAEVE) Troponin I (TnI) levels must be interpreted in the context of the presenting symptoms and the clinical findings. Elevated TnI levels indicate myocardial damage, but are not specific for ischemic heart disease. Elevated TnI levels are seen in patients with other cardiac conditions (including myocarditis and congestive heart failure), and slight TnI elevations occur in patients with other conditions, including sepsis, renal failure, acidosis, acute neurological disease, and persistent tachyarrhythmia.Opera tor ID - PIAYA L Lab Interpretation (test Abnormal code = 54476-4) [facility] [id number] 04:32:00 Test Item Value Reference Range Interpretation Comments TROPONIN I (BEAKER) (test code = 0.34 ng/mL 0.00-0.03 HH 397) Troponin I (TnI) levels must be interpreted in the context of the presenting symptoms and the clinical findings. Elevated TnI levels indicate myocardial damage, but are not specific for ischemic heart disease. Elevated TnI levels are seen in patients with other cardiac conditions (including myocarditis and congestive heart failure), and slight TnI elevations occur in patients with other conditions, including sepsis, renal failure, acidosis, acute neurological disease, and persistent tachyarrhythmia.Payroll Auditor ID - PIAYA LBASIC METABOLIC [id number] 04:16:00 Test Item Value Reference Range Interpretation Comments SODIUM (BEAKER) 136 meq/L 136-145 (test code = 381) POTASSIUM (BEAKER) 3.6 meq/L 3.5-5.1 (test code = 379) CHLORIDE (BEAKER) 102 meq/L 98-107 (test code = 382) CO2 (BEAKER) (test 27 meq/L 22-29 code = 355) BLOOD UREA NITROGEN 11 mg/dL 7-21 (BEAKER) (test code = 354) CREATININE (BEAKER) 0.77 mg/dL 0.57-1.25 (test code = 358) GLUCOSE RANDOM 297 mg/dL 70-105 H (BEAKER) (test code = 652) CALCIUM (BEAKER) 8.7 mg/dL 8.4-10.2 (test code = 697) EGFR (BEAKER) (test 98 mL/min/1.73 ESTIMA JIMI GFR IS code = 1092) sq m NOT ACCURATE CREATININE CLEARANCE IN PREDICTING GLOMERULAR FILTRATION RATE . ESTIMATED GFR I S NOT APPLICABLE FOR DIALYSIS PATIEN TS. Payroll Auditor ID - PIAYA LCBC (HEMOGRAM ONLY)2019-12-17 04:01:00 Test Item Value Reference Range Interpretation Comments WHITE BLOOD CELL COUNT (BEAKER) 5.9 K/ L 3.5-10.5 (test code = 775) RED BLOOD CELL COUNT (BEAKER) 3.61 M/ L 4.63-6.08 L (test code = 761) HEMOGLOBIN (BEAKER) (test code = 10.9 GM/DL 13.7-17.5 L 410) HEMATOCRIT (BEAKER) (test code = 33.6 % 40.1-51.0 L 411) MEAN CORPUSCULAR VOLUME (BEAKER) 93.1 fL 79.0-92.2 H (test code = 753) MEAN CORPUSCULAR HEMOGLOBIN 30.2 pg 25.7-32.2 (BEAKER) (test code = 751) MEAN CORPUSCULAR HEMOGLOBIN CONC 32.4 GM/DL 32.3-36.5 (BEAKER) (test code = 752) RED CELL DISTRIBUTION WIDTH 14.6 % 11.6-14.4 H (BEAKER) (test code = 412) PLATELET COUNT (BEAKER) (test 169 K/CU MM 150-450 code = 756) MEAN PLATELET VOLUME (BEAKER) 10.3 fL 9.4-12.4 (test code = 754) NUCLEATED RED BLOOD CELLS 0 /100 WBC 0-0 (BEAKER) (test code = 413) TROPONIN [id number] 22:30:00 Test Item Value Reference Range Interpretation Comments TROPONIN I (BEAKER) (test code = 0.34 ng/mL 0.00-0.03 397) Troponin I (TnI) levels must be interpreted in the context of the presenting symptoms and the clinical findings. Elevated TnI levels indicate myocardial damage, but are not specific for ischemic heart disease. Elevated TnI levels are seen in patients with other cardiac conditions (including myocarditis and congestive heart failure), and slight TnI elevations occur in patients with other conditions, including sepsis, renal failure, acidosis, acute neurological disease, and persistent tachyarrhythmia.Payroll Auditor ID - BSPOCT-GLUCOSE METER 2019-12-16 21:26:00 Test Item Value Reference Range Interpretation Comments POC-GLUCOSE METER 345 mg/dL 70-110 H : TESTED A T [facility] [address] (BEAKER) (test code = [address] [place], 1538) [address]: Payroll Auditor/Techni sandip ID = [id number] for BA TTLES, ARYELL TROPONIN [id number] 16:44:00 Test Item Value Reference Range Interpretation Comments TROPONIN I (BEAKER) (test code = 0.48 ng/mL 0.00-0.03 397) Troponin I (TnI) levels must be interpreted in the context of the presenting symptoms and the clinical findings. Elevated TnI levels indicate myocardial damage, but are not specific for ischemic heart disease. Elevated TnI levels are seen in patients with other cardiac conditions (including myocarditis and congestive heart failure), and slight TnI elevations occur in patients with other conditions, including sepsis, renal failure, acidosis, acute neurological disease, and persistent tachyarrhythmia.Payroll Auditor ID - BSPLATELET AGGREGATION: FUNCTION [id number] 16:28:00 Test Item Value Reference Range Interpretation Comments [id number] Daily Pina, (BEAKER) (test code = MD (electronic 7787) signature) PLATELET COUNT AGG 198 K/CU MM 150-450 (BEAKER) (test code = 2656) PLATELET RICH 285 k/cu mm 200-300 PLASMA(BEAKER) (test code = 2134) PLATELET FUNCTION SCREEN Decreased aggregation INTERPRETATION (AKER) with ADP which (test code = 4655) indicates platelet dysfunction that may be due to medication effect, uremia, or other platelet function disorders. Clinical correlation is required. Platelet Function Screen results may be falsely low with platelet counts<75,000/cu mm.Payroll Auditor ID- [id number] 16:22:00 Test Item Value Reference Range Interpretation Comments PARTIAL THROMBOPLASTIN TIME 36.5 seconds 22.5-36.0 H (BEAKER) (test code = 760) 6 hours after starting heparin infusion and as indicated per sliding rhbmh2R Echo W/Doppler(CW/PW/Color)2019-12-16 14:50:06Ejection [facility] ECHO HEARTLAB MKCKESSON CPACSInterface, External Ris In - 12/16/2019 2:50 PM C DTTransthoracic Echocardiography Report (TTE) Demographics Patient Name ALTHEA TOVAR Date of Study 12/16/2019 ADDISON HODGES Gender Male Visit Number [id number] Race Unknown Room Number 1431 Number Date of 1945 Referring Leonardo Carmona MD Physician Age 74 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 [...] Previous Study No prior studies available for comparison. Signature Findings Technical Quality: Technically adequate exam. Left Ventricle The LV apex is incompletely visualized due to foreshortening. LV endocardium is adequately visualized with IV ultrasound enhancing agent. The left ventricle is chamber size (by vol index) is normal (male - LVED vol -34- 74ml/m2). No evidence of LV hypertrophy. Mid to distal septum, distal inferolateral and apex appear hypokinetic. The other LV segments have low normal contractility . Global LV systolic function lower limitsof normal . LVEF by Tony's method of disk assessment is lower limits of normal (50%) . Grade 1 diastolic dysfunction (impaired rel axation and low-normal LA pressure). Left Atrium LA is incompletely visualized, size based on linear measurement. LA size is normal . Right Ventricle RV chamber size appears normal by limited views . Global RV systolic function is normal . Right Atrium RA cavity size is normal .Aortic Valve Mild AoV cusp calcification. A trace of aortic regurgitation. Mitral Valve Mild mitral annular calcification. Mild MV leaflet thickening. Trace mitral regurgitation. Tricuspid Valve Mild tricuspid regurgitation. Estimated peak systolic PA pressure is 35-40 mmHg (borderline criteria for pulmonary hypertension) . Pulmonic Valve Normal PV structure and function by limited views and Doppler. Aorta Aortic root size (SInus of Valsalva diameter) is normal . Pericardium No pericardial effusion is visualized. IVC/SVC/PA/PV/Pleural The estimated RA pressure by IVC dynamics 5- 10mmHg . Chambers/Structures Left Atrium LA Dimension: 4.04 cm LeftVentricle LVIDd: 5.43 cm LVIDs: 3.81 cm LV Septum Diastolic: 1.19 cm LV PW Diastolic: 0.94 cm LV FS: 29.8 % LVEDV Tony's:137.27 ml LVESV Tony's:65.6 ml LVEDVI: 64 ml/m^2 LVEF Tony's: 52.2 % LVESVI: 30 ml/m^2 LVOT Diameter: 2.15 cm Aorta Ao Root S of Destiny.: 3.52 cm Doppler/Quantitative Measurements Mitral Valve MV Peak E-Wave: 0.75 m/s MV Peak A-Wave: 0.69 m/s E/A Ratio: 1.08 Peak Gradient: 2.25 mmHg Deceleration Time: 276.5 msec MV Chandan. Peak: Tissue Doppler E' Lateral Velocity: 0.06 m/s E/E': 12.43 Aortic Valve Peak Velocity: 1.69 m/s Mean Velocity: 1.15 m/s Peak Gradient: 11.48 mmHg Mean Gradient: 6.09 mmHg AV Area (continuity): 2.05 cm^2 AV VTI: 31.22 cm AV DVI: 0.57 LVOT Peak Velocity: 0.91 m/s Peak Gradient: 3.3 mmHg Mean Velocity: 0.55m/s Mean Gradient: 1.48 mmHg LVOT Diameter: 2.15 cm LVOT VTI: 17.67 cm LVOT Area: 3.63 cm^2 LVOT SV:64.12 ml LVOT CO: 4.49 l/min LVOT CI: 2.08 l/min/m^2 Tricuspid Valve TR Velocity: 2.75 m/s TR Gradient: 30.24 mmHgCHI Uk[facility] Medical CenterPOCT-GLUCOSE [id number] 12:29:00 Test Item Value Reference Range Interpretation Comments POC-GLUCOSE METER 278 mg/dL 70-110 H [facility] (JUSTINE) (test code = [place], 1538) [address]: Payroll Auditor/Techni sandip ID = [id number] for CIARAN MENENDEZ TROPONIN [id number] 11:03:00 Test Item Value Reference Range Interpretation Comments TROPONIN I (JUSTINE) (test code = 0.39 ng/mL 0.00-0.03 397) Troponin I (TnI) levels must be interpreted in the context of the presenting symptoms and the clinical findings. Elevated TnI levels indicate myocardial damage, but are not specific for ischemic heart disease. Elevated TnI levels are seen in patients with other cardiac conditions (including myocarditis and congestive heart failure), and slight TnI elevations occur in patients with other conditions, including sepsis, renal failure, acidosis, acute neurological disease, and persistent tachyarrhythmia.Payroll Auditor ID - NEELAM [id number] 10:50:00 Test Item Value Reference Range Interpretation Comments PARTIAL THROMBOPLASTIN TIME 29.5 seconds 22.5-36.0 (JUSTINE) (test code = 760) Prior to initiating heparinRAD, CHEST, 1 VIEW, NON [id number] 10:00:00Reason for exam:->Short of breathShould this be performed at the bedside?->Yes FINAL REPORT INDICATION: Short of breath COMPARISON: December 15, 2019 TECHNIQUE:Single frontal view of the chest. FINDINGS: Lungs and pleura: Mild interstitial edema. Trace right effusion. Heart and mediastinum: Normal heart size. Unremarkable mediastinal contours.Osseous structures: No acute abnormality.Other: None. . Signed: Myrna Sanchez Verified Date/Time: 12/16/2019 10:00:26 Reading Location: [facility] Radiology Reading Room HEMOGLOBIN [id number] 09:56:00 Test Item Value Reference Range Interpretation Comments HEMOGLOBIN A1C (JUSTINE) (test code = 9.5 % 4.3-6.1 H 368) Carotid doppler [id number] 08:21:17Ejection [facility] ECHO HEARTLAB MKCKESSON CPACSRight Impression1. There is <50% diameter reduction (approximately 39% by 2-D measurement)in the internal carotid artery with a peak velocity of 88.4 cm/sec andheterogeneous plaque.2. There is non-occluding plaque in the external carotid artery.3. There is non-occluding plaque in the common carotid artery.4. The vertebral artery flow is antegrade and normal.5. The subclavian artery is within normal limits where visualized.Left Impression1. There is <50% diameter reduction (approximately 46% by 2-D measurement)in the internal carotid artery with a peak velocity of 104 cm/sec andheterogeneous shadowing plaque.2. The external carotid artery could not be visualized, stenosis orocclusion cannot be ruled out.3. There is non-occluding plaque in the common carotid artery.4. The vertebral artery flow is antegrade and normal.5. The subclavian arteryis within normal limits where visualized. Conclusions Summary [...] Diameters are measured in cm Carotid Right Measurements+ +--- -+----+-----+ + + +!Location !PSV !EDV !Angle!%Stenosis 2D!%Stenosis Doppler!Tortuosity !+ +----+----+-----+ + +------ -----+!Prox CCA !91.3!18.6!60 ! ! ! !+ +-- --+----+-----+ + + +!Dist CCA !62.7!19.9!60 ! ! ! !+ +----+----+-----+ + +----- ------+!Prox ICA !65 !18.2!60 ! ! ! !+ +- ---+----+-----+ + + +!Dist ICA !88.4!37.3!60 ! ! ! !+ +----+----+-----+ + +---- -------+!Prox ECA !132 !19.7!52 ! ! ! !+ + ----+----+-----+ + + +!Vertebral !51.8!17.5!60 ! ! ! !+ +----+----+-----+ + +--- --------+!Prox Subclavian!102 !0 !60 ! ! ! !+ +----+----+-----+ + + + - There is antegrade vertebral flow noted on the right side. - Additional Measurements:ICAPSV/CCAPSV 1.41.ICAEDV/CCAEDV 2.01. Carotid Left Measurements+ +----+----+-----+ + +---- -------+!Location !PSV !EDV !Angle!%Stenosis 2D!%Stenosis Doppler!Tortuosity !+ +----+----+-----+--- ---------+ + +!Prox CCA !70.2!16.2!60 ! ! ! !+ +----+----+-----+ + + +!Di st CCA !49.7!18.6!60 ! ! ! !+ +----+----+-----+-- + + +!Prox ICA !99.4!37.9!60 ! ! ! !+ +----+----+-----+ + + +!Di st ICA !104 !41.6!60 ! ! ! !+ +----+----+-----+- + + +!Vertebral !62.7!23 !60 ! ! ! !+ +----+----+-----+ + + +!Pr ox Subclavian!171 !0 !60 ! ! ! !+ +----+----+-----+ + + + - There is antegrade vertebral flow noted on the left side. - Additional Measurements:ICAPSV/CCAPSV 2.09.ICAEDV/CCAEDV 2.57. 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 Indications for Study:Preop.Patient Status:Routine.[facility] Diff[facility].Risk FactorsHistory of Disease+ +----+ +!Diagnosis !Date!Comments !+ +----+ +!Hi story/Risk Factors: ! !CAD, DM, HTN !+ +----+ +ImpressionsRight Impression1. There is <50% diameter reduction (approximately 39% by 2-D measurement)in the internal carotid artery with a peak velocity of 88.4 cm/sec andheterogeneous plaque.2. There is non-occluding plaque in the external carotid artery.3. There is non-occluding plaque in the common carotid artery.4. The vertebral artery flow is antegrade and normal.5. The subclavian artery is within normal limits where visualized.Left Impression1. There is <50% diameter reduction (approximately 46% by 2-D measurement)in the internal carotid artery with a peak velocity of 104 cm/sec andheterogeneous shadowing plaque.2. The external carotid artery could not be visualized, stenosis orocclusion cannot be ruled out.3. There is non-occluding plaque in the common carotid artery.4. The vertebral artery flow is antegrade and normal.5. The subclavian artery is within normal limits where visualized. Conclusions Summary Carotid duplex scanning and color flow imaging were performed bilaterally. The arteries were adequately visualized. The bilateralinternal carotid arteries had <50% hemodynamically insignificant stenosis (approximately 39% by 2-D measurement on the right, approximately 46% by 2-D measurement on the left) with heterogeneous shadowing plaque. The left external carotid artery was not visualized, therefore stenosis or occlusion could not be ruled out. The vertebral artery flow was antegrade and normal bilaterally. The subclavianarteries were patent with normal flow bilaterally where visualized. Signature Velocities are measured in cm/s ; Diameters are measured in cmCarotid Right Measurements+ --+----+----+-----+ + + +!Location !PSV !EDV !Angle!%Stenosis 2D!%Stenosis Doppler!Tortuosity !+ +----+----+-----+ + + +!Prox CCA !91.3!18.6!60 ! ! ! !+ ---+----+----+-----+ + + +!Dist CCA !62.7!19.9!60 ! ! ! !+ +----+----+-----+ + + +!Prox ICA !65 !18.2!60 ! ! ! !+ ----+----+----+-----+ + + +!Dist ICA !88.4!37.3!60 ! ! ! !+ +----+----+-----+ + -+ +!Prox ECA !132 !19.7!52 ! ! ! !+ -----+----+----+-----+ + + +!Vertebral !51.8!17.5!60 ! ! ! !+ +----+----+-----+ + --+ +!Prox Subclavian!102 !0 !60 ! ! ! !+--------- ------+----+----+-----+ + + + - There is antegrade vertebral flow noted on the right side. - Additional Measurements:ICAPSV/CCAPSV 1.41.ICAEDV/CCAEDV 2.01.CarotidLeft Measurements+ +----+----+-----+ + +---- -------+!Location !PSV !EDV !Angle!%Stenosis 2D!%Stenosis Doppler!Tortuosity !+ +----+----+-----+ + + +!Prox CCA !70.2!16.2!60 ! ! ! !+ +----+----+-----+ + + +!Di st CCA !49.7!18.6!60 ! ! ! !+ +----+----+----- + + + +!Prox ICA !99.4!37.9!60 ! ! ! !+ +----+----+-----+ + + +!Di stICA !104 !41.6!60 ! ! ! !+ +----+----+---- -+ + + +!Vertebral !62.7!23 !60 ! ! ! !+ +----+----+-----+ + + +!Pr ox Subclavian!171 !0 !60 ! ! ! !+ +----+----+-----+ + + + - There is antegrade vertebral flow noted on the left side. - Additional Measurements:ICAPSV/CCAPSV 2.09.ICAEDV/CCAEDV 2.57.[facility] POCT-GLUCOSE [id number] 08:11:00 Test Item Value Reference Range Interpretation Comments POC-GLUCOSE METER 140 mg/dL 70-110 H : TESTED A T [facility] 67[address] (BEAKER) (test code = BRENDA Dykes [employer], 1538) [address]: Payroll Auditor/Techni sandip ID = [id number] for CIARAN MENENDEZ Lipid [id number] 05:11:00 Test Item Value Reference Range Interpretation Comments Triglycerides (test 133 mg/dL code = 2571-8) Cholesterol (test code 101 mg/dL = 2093-3) HDL (test code = 26 mg/dL 5-9) LDL Calculated (test 48 mg/dL code = 03731-7) MAEVE (test code = MAEVE) Triglyceride Reference Range: Low Risk <150 Borderline 150-199 High Risk 200-499 Very High Risk >=500 Cholesterol Reference Range: Low Risk <200 Borderline 200-239 High Risk >240 HDL Cholesterol Reference Range: Low Risk >=60 High Risk <40 LDL Cholesterol Reference Range: Optimal <100 Near Optimal 100-129 Borderline 130-159 High 160-189 Very High >=190 Payroll Auditor ID - JIMENEZ Cho [facility] HospitalLIP[facility] [id number] 05:11:00 Test Item Value Reference Range Interpretation Comments TRIGLYCERIDES (BEAKER) (test code = 133 mg/dL 540) CHOLESTEROL (BEAKER) (test code = 101 mg/dL 631) HDL CHOLESTEROL (BEAKER) (test code 26 mg/dL = 976) LDL CHOLESTEROL CALCULATED (BEAKER) 48 mg/dL (test code = 633) Triglyceride Reference Range: Low Risk <150 Borderline 150-199 High Risk 200-499 Very High Risk >=500Cholesterol Reference Range: Low Risk <200 Borderline 200-239 High Risk >240HDL Cholesterol Reference Range: Low Risk >=60 High Risk <40LDL Cholesterol Reference Range: Optimal <100 Near Optimal 100-129 Borderline 130-159 High 160-189 Very High >=190 Payroll Auditor ID - JIMENEZ MBASIC METABOLIC [id number] 05:11:00 Test Item Value Reference Range Interpretation Comments SODIUM (BEAKER) 138 meq/L 136-145 (test code = 381) POTASSIUM (BEAKER) 4.0 meq/L 3.5-5.1 (test code = 379) CHLORIDE (BEAKER) 103 meq/L 98-107 (test code = 382) CO2 (BEAKER) (test 23 meq/L 22-29 code = 355) BLOOD UREA NITROGEN 15 mg/dL 7-21 (BEAKER) (test code = 354) CREATININE (BEAKER) 0.77 mg/dL 0.57-1.25 (test code = 358) GLUCOSE RANDOM 158 mg/dL 70-105 H (BEAKER) (test code = 652) CALCIUM (BEAKER) 9.6 mg/dL 8.4-10.2 (test code = 697) EGFR (BEAKER) (test 98 mL/min/1.73 ESTIMA JIMI GFR IS code = 1092) sq m NOT ACCURATE CREATININE CLEARANCE IN PREDICTING GLOMERULAR FILTRATION RATE . ESTIMATED GFR I S NOT APPLICABLE FOR DIALYSIS PATIEN TS. Payroll Auditor ID - JIMENEZ MABORH, [id number] 23:30:00 Test Item Value Reference Range Interpretation Comments ABO Grouping (test code = 2588) O Rh Factor (test code = 2589) POS [facility] [id number] 21:46:00 Test Item Value Reference Range Interpretation Comments POC-GLUCOSE METER 177 mg/dL 70-110 H : TESTED A T [facility] 67[address] (BEAKER) (test code = [place], 1538) [address]: Payroll Auditor/Techni sandip ID = [id number] for Merced Ambrosio Comprehensive metabolic [id number] 18:50:00 Test Item Value Reference Range Interpretation Comments Protein, Total (test 7.5 6.0- 8.3 gm/dL code = 2885-2) Albumin (test code = 4.2 g/dL 3.5-5 80650-0) Alkaline Phosphatase 62 U/L 40-150 (test code = 6768-6) Total Bilirubin (test 0.7 mg/dL 0.2-1.2 code = 1974-2) Sodium (test code = 137 meq/L 130-437 4876-2) Potassium (test code = 3.6 meq/L 3.5-5.1 2823-3) Chloride (test code = 99 meq/L 98-107 2075-0) CO2 (test code = 26 meq/L 22-29 2028-9) BUN (test code = 13 mg/dL 7-21 3094-0) Creatinine (test code 0.83 mg/dL 0.57-1.25 = 2160-0) Glucose (test code = 177 mg/dL 70-105 H 2345-7) Calcium (test code = 10.0 mg/dL 8.4-10.2 28387-1) AST (test code = 44 U/L 5-34 H 1920-8) ALT (test code = 27 U/L 6-55 1742-6) EGFR (test code = 90 mL/min/1.73 [place] [address]-7) NOT ACCURATE CREATININE CLEARANCE IN PREDICTING GLOMERULAR FILTRATION RATE . ESTIMATED GFR I S NOT APPLICABLE FOR DIALYSIS PATIENTS. MAEVE (test code = MAEVE) Payroll Auditor ID - BS Lab Interpretation Abnormal (test code = 09207-2) [facility] Hospital[facility] METABOL[facility] [id number] 18:50:00 Test Item Value Reference Range Interpretation Comments TOTAL PROTEIN 7.5 gm/dL 6.0-8.3 (BEAKER) (test code = 770) ALBUMIN (BEAKER) 4.2 g/dL 3.5-5.0 (test code = 1145) ALKALINE PHOSPHATASE 62 U/L 40-150 (BEAKER) (test code = 346) BILIRUBIN TOTAL 0.7 mg/dL 0.2-1.2 (BEAKER) (test code = 377) SODIUM (BEAKER) (test 137 meq/L 136-145 code = 381) POTASSIUM (BEAKER) 3.6 meq/L 3.5-5.1 (test code = 379) CHLORIDE (BEAKER) 99 meq/L 98-107 (test code = 382) CO2 (BEAKER) (test 26 meq/L 22-29 code = 355) BLOOD UREA NITROGEN 13 mg/dL 7-21 (BEAKER) (test code = 354) CREATININE (BEAKER) 0.83 mg/dL 0.57-1.25 (test code = 358) GLUCOSE RANDOM 177 mg/dL 70-105 H (BEAKER) (test code = 652) CALCIUM (BEAKER) 10.0 mg/dL 8.4-10.2 (test code = 697) AST (SGOT) (BEAKER) 44 U/L 5-34 H (test code = 353) ALT (SGPT) (BEAKER) 27 U/L 6-55 (test code = 347) EGFR (BEAKER) (test 90 mL/min/1.73 ESTIMA JIMI GFR IS code = 1092) sq m NOT ACCURATE CREATININE CLEARANCE IN PREDICTING GLOMERULAR FILTRATION RATE . ESTIMATED GFR I S NOT APPLICABLE FOR DIALYSIS PATIEN TS. Payroll Auditor ID - BSPROTHROMBIN TIME/[id number] 18:42:00 Test Item Value Reference Range Interpretation Comments PROTIME (BEAKER) (test code = 13.7 seconds 11.9-14.2 759) INR (BEAKER) (test code = 370) 1.1 <=5.9 Effective 02/04/2019: PT Reference Range ChangeNew: 11.9-14.2 Previous: 11.7- 14.7RECOMMENDED COUMADIN/WARFARIN INR THERAPY RANGESSTANDARD DOSE: 2.0-3.0 Includes: PROPHYLAXIS for venous thrombosis, systemic embolization; TREATMENT for venous thrombosis and/or pulmonary embolus.HIGH RISK: Target INR is2.5-3.5 for patients wiht mechanical heart valves.[id number] 18:42:00 Test Item Value Reference Range Interpretation Comments PARTIAL THROMBOPLASTIN TIME 29.8 seconds 22.5-36.0 (BEAKER) (test code = 760) RAD, CHEST, 1 VIEW, NON [id number] 18:34:00Reason for exam:->s/p NSTEMI, pre-op CXRShould this be performed at the bedside?->YesFINAL REPORT Chest, portable AP view History: Status post NSTEMI, preoperative chest x-ray Comparison: No comparisons available for review IMPRESSION: The heart is within normal limits of size. Bibasilar atelectasis. There is mild interstitial edema. Small bilateral pleural effusions are suspected. No focal consolidation or pneumothorax. Signed: Nate Ambrocio MDReport Verified Date/Time: 12/15/2019 18:34:02 Reading Location: [address] Radiology Reading Room POCT-GLUCOSE [id number] 16:09:00 Test Item Value Reference Range Interpretation Comments POC-GLUCOSE METER 185 mg/dL 70-110 H : TESTED A T [facility] [address] ([facility]) (test code = [place], 1538) [address]: Payroll Auditor/Techni sandip ID = [id number] for GREG SUNG
[2020-05-20 11:49] LABS: Protime INR 1.07
[2020-05-20 11:52] LABS: Basophils % 0.7 % (0-1.3); Hematocrit 33.3 % (39.6-49.0); Lymphocytes % 18.6 % (15.3-44.8); RBC Red Blood Cell Count 3.77 M/uL (4.33-5.43)
[2020-05-20 12:00] LABS: Albumin 3.5 g/dL (3.4-5.0); Bilirubin Direct 0.2 mg/dL (0-0.2); Bilirubin Total 0.5 mg/dL (0.2-1.0); Magnesium 1.5 mg/dL (1.8-2.4); Protein, Total 6.9 g/dL (6.4-8.2)
[2020-05-20] MEDS ORDERED: MAGNESIUM SULFATE 1 gm IVPB 1 GM/100 ML BAG IV ONE (12:19)
--- NOTE | 2020-05-20 12:21 | RAD REPORT ---
EXAM DESCRIPTION: RAD - Chest Single View - 05/20/2020 12:04 pm CLINICAL HISTORY: SWELLING Chest pain. COMPARISON: Chest Single View dated 12/15/2019; Chest Single View dated 12/13/2019; Chest Single View [place] 12/12/2019; Chest Single View dated 12/11/2019 FINDINGS: Portable technique limits examination quality. The lungs are mildly emphysematous but grossly clear. The heart is normal in size. No displaced fract ures. IMPRESSION: Mild COPD.
--- NOTE | 2020-05-20 12:43 | RAD REPORT ---
EXAM DESCRIPTION: CT - Stone Protocol - 05/20/2020 12:30 pm CLINICAL HISTORY: Flank pain. kidney failure COMPARISON: No comparisons TECHNIQUE: Axial images were obtained without oral or IV contrast. Lack of contrast limits solid org an and vascular assessment. The ohddb-lq-lfkd spans the entirety of the system partially obscuring uppermost abdomen and lung bases. Coronal reformatted images were obtained and reviewed. All CT scans are performed using dose optimization technique as appropriate and may include automated exposure control or mA/KV adjustment according to patient size. FINDINGS: The lower lung parekh are clear. Small hiatal hernia. Noncontrast assessment of the liver demonstrates a small 9 mm cyst in the anterior inferior right lob e. No intra or extrahepatic biliary tree dilatation. The spleen is normal in size. The pancreas and a drenal glands are unremarkable. No pathologic lymphadenopathy in the abdomen or pelvis. No urinary tract stones or obstructive uropathy. Renal cysts are present bilaterally, including hyper dense cyst emanating from the superior pole left kidney measuring 10 mm. No bowel obstruction, free air, free fluid or abscess. Normal appendix noted.Aortoiliac atheroscleros is. Mild sigmoid diverticulosis without diverticulitis. Small fat containing umbilical hernia. Prominent degenerative arthritic changes right hip. Moderate lumbar degenerative changes are seen. 8 mm degenerative anterolisthesis of L4 on 5 is present. IMPRESSION: No urinary tract stones or obstructive uropathy. Multiple bilateral renal cysts are present, benign in appearance.
[2020-05-20] MEDS ORDERED: MORPHINE 2 MG/ML SYR IV PRN (12:54)
[2020-05-20] MEDS ORDERED: ACETAMINOPHEN 500 MG TAB PO PRN (12:54)
[2020-05-20] MEDS ORDERED: ONDANSETRON 4 MG/2 ML VIAL IV PRN (12:54)
--- NOTE | 2020-05-20 13:07 | EDPHYS ---
Physician Documentation [facility] Name: Dontrell Cartwright Jr Age: 74 yrs Sex: Male : 1945 Arrival Date: 05/20/2020 Time: 10:49 Bed 20 Private MD: ED Physician Hansel Eduardo HPI: 05/20 11:20 This 74 yrs old Male presents to ER via Ambulatory with complaints of cp Creatine Blood Work. 11:20 Abnormal kidney function test. cp 11:20 Onset: The symptoms/episode began/occurred at an unknown time. Patient denies history cp of kidney disease and reports he had routine blood work drawn yesterday that showed elevated kidney function test. 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 Patient was instructed to go to an ED immediately. No complaints expressed by patient. Historical: - Allergies: 11:05 No Known Allergies; ss - PMHx: 11:05 Angina; Diabetes - IDDM; GERD; Hypertension; Atrial Fib; ss 11:05 Rheumatoid Arthritis; ss - Immunization history:: Adult Immunizations up to date. - Social history:: Smoking status: Patient denies any tobacco usage or history of. ROS: 11:25 Constitutional: Negative for body aches, chills, fever. cp 11:25 Cardiovascular: Positive for edema, Negative for chest pain, palpitations. 11:25 Respiratory: Negative for cough, shortness of breath, wheezing. 11:25 Abdomen/GI: Negative for abdominal pain, nausea, vomiting, and diarrhea. 11:25 Back: Negative for pain at rest, pain with movement. 11:25 Neuro: Negative for altered mental status, dizziness, headache, weakness. 11:25 All other systems are negative. Exam: 11:30 Constitutional: The patient appears in no acute distress, alert, awake, comfortable, cp non-diaphoretic, non-toxic, well developed, well nourished. 11:30 Head/Face: Normocephalic, atraumatic. cp 11:30 Eyes: Periorbital structures: appear normal, Conjunctiva: normal, no exudate, no injection, Sclera: no appreciated abnormality, Lids and lashes: appear normal, bilaterally. 11:30 ENT: External ear(s): are unremarkable, Nose: is normal, Mouth: is normal, Posterior pharynx: Airway: no evidence of obstruction, patent. 11:30 Chest/axilla: Inspection: normal, Palpation: is normal, no crepitus, no tenderness. 11:30 Cardiovascular: Rate: normal, Rhythm: irregular, Edema: ankle edema, that is moderate, JVD: is not appreciated. 11:30 Respiratory: the patient does not display signs of respiratory distress, Respirations: normal, no use of accessory muscles, no retractions, labored breathing, is not present, Breath sounds: are clear throughout, no decreased breath sounds, no stridor, no wheezing. 11:30 Abdomen/GI: Inspection: abdomen appears normal, Palpation: abdomen is soft and non-tender, in all quadrants. 11:30 Back: CVA tenderness, is absent. 11:30 Neuro: Orientation: to person, place \T\ time. Mentation: is normal, Motor: moves all fours, strength is normal. 11:40 ECG was reviewed by the Attending Physician. Vital Signs: 11:01 BP 131 / 76; Pulse 95; Resp 16; Temp 97.6(TE); Pulse Ox 98% on R/A; Weight 89.13 kg ss (M); Height 5 ft. 10 in. (177.80 cm); 12:12 BP 108 / 68; Pulse 83; Resp 16; Pulse Ox 98% on R/A; sv 12:45 BP 114 / 58; Pulse 88; Resp 16; Pulse Ox 98% ; sv 14:30 BP 135 / 73; Pulse 76; Resp 16; Pulse Ox 99% ; sv 11:01 Body Mass Index 28.19 (89.13 kg, 177.80 cm) MDM: 11:06 Patient medically screened. 12:30 Data reviewed: vital signs, nurses notes, lab test result(s), EKG, radiologic studies, cp plain films. 12:30 Test interpretation: by ED physician or midlevel provider: ECG. 12:35 Physician consultation: Hansel Pickard MD was called at 12:35, was contacted at 12:35, regarding admission, to the telemetry unit. patient's condition. 05/20 11:13 Order name: Basic Metabolic Panel; Complete Time: 12:02 05/20 12:02 Interpretation: Normal except: GLUC 213; BUN 35; CRE 2.57; GFR 25. 05/20 11:13 Order name: CBC with Diff 05/20 12:02 Interpretation: Normal except: RBC 3.77; HGB 10.8; HCT 33.3; MCV 88.4; RDW 17.2; MN% cp 21.1. 05/20 11:13 Order name: LFT's; Complete Time: 12:02 05/20 12:13 Interpretation: Normal except: A/G 1.0. 05/20 11:13 Order name: Magnesium; Complete Time: 12:02 05/20 12:13 Interpretation: Abnormal: MG 1.5. 05/20 11:13 Order name: NT PRO-BNP; Complete Time: 12:02 05/20 11:13 Order name: PT-INR; Complete Time: 12:02 05/20 12:13 Interpretation: PT 12.6; Reviewed. 05/20 12:04 Order name: Urine Microscopic Only 05/20 12:58 Order name: CBC with Automated Diff [facility] 05/20 12:58 Order name: CBC with Automated Diff [facility] 05/20 12:58 Order name: Comprehensive Metabolic Panel [facility] 05/20 12:58 Order name: Comprehensive Metabolic Panel [facility] 05/20 14:09 Order name: Urine Dipstick--Ancillary (enter results) 05/20 14:43 Order name: Manual Differential [facility] 05/20 15:24 Order name: Urine Dipstick-Ancillary [facility] 05/20 11:13 Order name: XRAY Chest (1 view); Complete Time: 12:29 05/20 12:29 Interpretation: Report review. 05/20 11:13 Order name: EKG; Complete Time: 11:13 05/20 11:13 Order name: Cardiac monitoring; Complete Time: 11:37 05/20 11:13 Order name: EKG - Nurse/Tech; Complete Time: 11:36 05/20 11:13 Order name: IV Saline Lock; Complete Time: 11:36 05/20 11:13 Order name: Labs collected and sent; Complete Time: 11:36 05/20 11:13 Order name: O2 Per Protocol; Complete Time: 11:36 05/20 11:13 Order name: O2 Sat Monitoring; Complete Time: 11:36 05/20 12:04 Order name: CT Stone Protocol; Complete Time: 13:05 05/20 12:04 Order name: Urine Dipstick-Ancillary (obtain specimen); Complete Time: 13:32 05/20 12:35 Order name: Bladder Scanner: pre and post void; Complete Time: 13:14 cp 05/20 12:58 Order name: CONS Pharmacy Consult EDMS 05/20 12:58 Order name: Renal EDMS EC:40 Rate is 88 beats/min. Rhythm is irregular. QRS interval is normal. QT interval is cp normal. Interpreted by me. Reviewed by me. Administered Medications: 14:27 Drug: Magnesium Sulfate 1 grams Route: IVPB; Infused Over: 1 hrs; Site: right sv antecubital; 15:20 Follow up: Response: No adverse reaction; IV Status: Completed infusion; IV Intake: sv 100ml Disposition: 13:30 Chart complete. cp 16:16 Co-signature as Attending Physician, Hansel Eduardo MD. ma2 Disposition: 05/20/20 13:06 Hospitalization ordered by Hansel Pickard for Inpatient Admission. Preliminary diagnosis is Acute kidney failure. - Bed requested for Telemetry/MedSurg (Inpatient). - Status is Inpatient Admission. sv - Condition is Stable. - Problem is new. - Symptoms are unchanged. Signatures: Dispatcher [facility] Sadie Mejia RN RN sv Woody, Diana, RN RN dw Smirch, Shelby, RN RN ss Page, Corey, PA PA cp Alzahri, Mohammad, MD MD ma2 Corrections: (The following items were deleted from the chart) 14:21 13:06 Hospitalization Ordered by Hansel Pickard MD for Inpatient Admission. Preliminary dw diagnosis is Acute kidney failure. Bed requested for Telemetry/MedSurg (Inpatient). Status is Inpatient Admission. Condition is Stable. Problem is new. Symptoms are unchanged. cp 16:06 14:21 05/20/2020 13:06 Hospitalization Ordered by Hansel Pickard MD for Inpatient sv Admission. Preliminary diagnosis is Acute kidney failure. Bed requested for Telemetry/MedSurg (Inpatient). Status is Inpatient Admission. Condition is Stable. Problem is new. Symptoms are unchanged. dw
--- NOTE | 2020-05-20 13:07 | ER ---
Nurse's Notes [facility] Name: Dontrell Cartwright Jr Age: 74 yrs Sex: Male : 1945 Arrival Date: 05/20/2020 Time: 10:49 Bed 20 Private MD: Diagnosis: Acute kidney failure Presentation: 05/20 11:01 Chief complaint: Patient states: Sent by [employer] to verify elevated creatinine ss level. Pt reports he had labs drawn yesterday and was told his creatinine was over 3.0. Pt has no complaints at this time. Coronavirus screen: Client denies travel out of the [place] in the last 14 days. Ebola Screen: Patient denies exposure to infectious person. Patient denies travel to an Ebola-affected area in the 21 days before illness onset. Initial Sepsis Screen: Does the patient meet any 2 criteria? No. Patient's initial sepsis screen is negative. Does the patient have a suspected source of infection? No. Patient's initial sepsis screen is negative. Risk Assessment: Do you want to hurt yourself or someone else? Patient reports no desire to harm self or others. Onset of symptoms is unknown. 11:01 Method Of Arrival: Ambulatory ss 11:01 Acuity: NEREIDA 3 ss Historical: - Allergies: 11:05 No Known Allergies; ss - PMHx: 11:05 Angina; Diabetes - IDDM; GERD; Hypertension; Atrial Fib; ss 11:05 Rheumatoid Arthritis; ss - Immunization history:: Adult Immunizations up to date. - Social history:: Smoking status: Patient denies any tobacco usage or history of. Screenin:25 Abuse screen: Denies threats or abuse. Denies injuries from another. Nutritional sv screening: No deficits noted. Tuberculosis screening: No symptoms or risk factors identified. Fall Risk None identified. Assessment: 11:20 General: Appears in no apparent distress. comfortable, well groomed, well developed, sv Behavior is calm, cooperative, appropriate for age. Pain: Denies pain. Neuro: Level of Consciousness is awake, alert, obeys commands, Oriented to person, place, time, situation, Appropriate for age Moves all extremities. Full function Gait is steady. Respiratory: Airway is patent Respiratory effort is even, unlabored, Respiratory pattern is regular, symmetrical. Derm: Skin is intact, Skin is pink, warm \T\ dry. 12:50 Reassessment: Patient appears in no apparent distress at this time. No changes from sv previously documented assessment. Patient and/or family updated on plan of care and expected duration. Pain level reassessed. Patient is alert, oriented x 3, equal unlabored respirations, skin warm/dry/pink. 14:27 Reassessment: Patient appears in no apparent distress at this time. No changes from sv previously documented assessment. Patient and/or family updated on plan of care and expected duration. Pain level reassessed. Patient is alert, oriented x 3, equal unlabored respirations, skin warm/dry/pink. 14:34 Reassessment: Attempted to call report, nurse unavailable. sv 15:16 Reassessment: Attempted to call report, nurse to call back. sv 15:50 Reassessment: Patient appears in no apparent distress at this time. No changes from sv previously documented assessment. Patient and/or family updated on plan of care and expected duration. Pain level reassessed. Patient is alert, oriented x 3, equal unlabored respirations, skin warm/dry/pink. Vital Signs: 11:01 BP 131 / 76; Pulse 95; Resp 16; Temp 97.6(TE); Pulse Ox 98% on R/A; Weight 89.13 kg ss (M); Height 5 ft. 10 in. (177.80 cm); 12:12 BP 108 / 68; Pulse 83; Resp 16; Pulse Ox 98% on R/A; sv 12:45 BP 114 / 58; Pulse 88; Resp 16; Pulse Ox 98% ; sv 14:30 BP 135 / 73; Pulse 76; Resp 16; Pulse Ox 99% ; sv 11:01 Body Mass Index 28.19 (89.13 kg, 177.80 cm) ED Course: 10:49 Patient arrived in ED. ds1 10:59 Lauri Maria PA is PHCP. cp 10:59 Hansel Eduardo MD is Attending Physician. cp 11:04 Triage completed. ss 11:05 Arm band placed on right wrist. ss 11:16 Sadie Mejia, WISAM is Primary Nurse. sv 11:25 Patient has correct armband on for positive identification. Placed in gown. Bed in low sv position. Call light in reach. Pulse ox on. NIBP on. Door closed. Warm blanket given. Head of bed elevated. 11:25 Inserted saline lock: 20 gauge in right antecubital area, using aseptic technique. sv Blood collected. Flushed right antecubital with 5 ml normal saline. 11:31 EKG done, by ED staff, reviewed by Lauri REED. sv 11:37 Awaiting for x-ray. sv 11:53 X-ray(s) taken. sv 12:05 XRAY Chest (1 view) In Process Unspecified. EDMS 12:30 CT Stone Protocol In Process Unspecified. EDMS 13:06 Hansel Pickard MD is Hospitalizing Provider. cp 13:12 Bladder scan completed. 659ml pre-void. jp3 13:14 Urine collected: clean catch specimen, clear, danelle colored, Amount Voided: 180mL. jp3 13:31 Bladder scan completed. 344ml post-void. Pt reported feeling of relief after voiding. jp3 14:18 Hand cath inserted, using sterile technique, 16 Fr., by ma, balloon inflated, to jp3 gravity drainage, returned clear yellow urine. Patient tolerated well. returned 500ml. 14:19 Placed in gown. Bed in low position. Call light in reach. Side rails up X 1. Warm jp3 blanket given. Pillow given. Verbal reassurance given. Pulse ox on. NIBP on. 15:17 No provider procedures requiring assistance completed. Patient admitted, IV remains in sv place. intact. Administered Medications: 14:27 Drug: Magnesium Sulfate 1 grams Route: IVPB; Infused Over: 1 hrs; Site: right sv antecubital; 15:20 Follow up: Response: No adverse reaction; IV Status: Completed infusion; IV Intake: sv 100ml Intake: 15:20 IV: 100ml; Total: 100ml. sv Outcome: 13:06 Decision to Hospitalize by Provider. cp 15:36 Admitted to Med/surg accompanied by tech, via wheelchair, room 222, with chart, Report sv called to Lizzie JOEL 15:36 Condition: stable 15:36 Instructed on the need for admit. 16:06 Patient left the ED. sv Signatures: Dispatcher [employer] Sadie Barragan RN RN Shital Jon ds1 Liza Aceves RN RN Lauri Maria PA PA cp Paul Logan jp3 Corrections: (The following items were deleted from the chart) 13:13 13:12 Bladder scan completed. 659ml jp3 jp3
[2020-05-20 14:42] LABS: Platelet Estimate ADEQ
[2020-05-20 14:43] LABS: Blood Morphology Comment NOT SEEN (NOT SEEN)
[2020-05-20 15:23] LABS: Urine Blood TRACE (NEG); Urine Glucose 2+ (NEG); Urine Protein 1+ (NEG)
[2020-05-20 15:24] LABS: Urine Amorphous Sediment 2+ /HPF (NONE SEEN); Urine Bacteria <20 /HPF (NONE SEEN); Urine Culture Reflex Order NOT NEEDED; Urine Mucus 2+ /HPF (NONE SEEN)
[2020-05-20 16:41] VITALS: BMI 27.8
[2020-05-20] MEDS: NA CHLORIDE 0.9% 1,000 ML IV SCH (16:42)
[2020-05-20] MEDS ORDERED: GLUCAGON 1 MG/VIAL IM PRN (19:44)
[2020-05-20] MEDS ORDERED: NITROGLYCERIN 0.4 MG/TAB SL PRN (19:44)
[2020-05-20] MEDS ORDERED: D50W 25 GM/50 ML SYRINGE/VIAL IV PRN (19:44)
[2020-05-20] MEDS: METOPROLOL TAR 50 MG TAB PO SCH (19:53)
[2020-05-20] MEDS ORDERED: METOPROLOL TAR 50 MG TAB ONE (20:01)
[2020-05-20] MEDS ORDERED: HYDRALAZINE HCL 20 MG/ML VIAL ONE (20:01)
[2020-05-20] MEDS ORDERED: HYDRALAZINE HCL 20 MG/ML VIAL IV PRN (20:09)
[2020-05-20] MEDS ORDERED: METOPROLOL TAR 50 MG TAB PO SCH (21:00)
[2020-05-20] MEDS: INSULIN -REGULAR HUMAN 50 UNIT/0.5 ML ML SQ SCH (21:43)
[2020-05-21 05:29] LABS: Absolute Lymphocytes (CBC) 1.3 K/uL (0.7-4.9); Basophils % 0.9 % (0-1.3); Hematocrit 30.5 % (39.6-49.0); Lymphocytes % 25.7 % (15.3-44.8); MPV 7.8 fL (7.6-11.3)
[2020-05-21 05:53] LABS: Albumin 2.8 g/dL (3.4-5.0); Bilirubin Total 0.4 mg/dL (0.2-1.0); Potassium 3.8 mmol/L (3.5-5.1)
[2020-05-21] MEDS: NA CHLORIDE 0.9% 1,000 ML IV SCH ×2 (05:54→17:12)
[2020-05-21] MEDS: INSULIN -REGULAR HUMAN 50 UNIT/0.5 ML ML SQ SCH ×4 (08:45→21:00)
[2020-05-21] MEDS: INSULIN GLARGINE 100 UNITS/ML SQ SCH (08:46)
[2020-05-21] MEDS: CLOPIDOGREL 75 MG TABLET PO SCH (08:49)
[2020-05-21] MEDS: METOPROLOL TAR 50 MG TAB PO SCH ×2 (08:49→17:06)
--- NOTE | 2020-05-21 09:43 | P.HP ---
Certification for Inpatient Patient admitted to: Inpatient With expected LOS: >2 Midnights Patient will require the following post-hospital care: None Practitioner: I am a practitioner with admitting privileges, knowledge of patient current condition, hospital course, and medical plan of care. Services: Services provided to patient in accordance with Admission requirements found in Title 42 Section 412.3 of the Code of Federal Regulations Patient History Date of Service: 05/20/20 Reason for admission: ACUTE KIDNEY INJURY; CONCERN FOR OBSTRUCTIVE UROPATHY History of Present Illness: Patient is a 74-year-old gentlemen who reports to the emergency room after his gate person called and told him his creatinine has increased significantly. His baseline creatinine with an 0.75 and currently his creatinine is 2.57. Patient's baseline GFR is greater than 90. Patient is currently with a GFR of 25. Patient has been voiding as regularly as he normally does. Patient states he feels like his bladder is not emptying properly. He came into the hospital after being called by his gate person decrease of her rheumatoid arthritis with Orencia. Patient will be admitted to the hospital and will review his medications. We will do bladder scan after he voids and see if he is having urinary retention. At this time, he will be admitted to the hospital for further evaluation and hydration to correct his renal function. Allergies No Known Allergies Allergy (Verified 06/18/14 13:42) Home Medications: Insulin Glargine,Hum.rec.anlog [Lantus] 100 units SQ DAILY 06/18/14 Liraglutide [Victoza 2-Abundio] 1.8 mg SQ DAILY 06/18/14 Metformin HCl [Glucophage] 500 mg PO DAILY AT SUPPER 06/18/14 Rosuvastatin Calcium [Crestor] 40 mg PO DAILY 06/18/14 Benazepril HCl 20 mg PO DAILY 12/12/19 Empagliflozin [Jardiance] 25 mg PO DAILY 12/12/[address] 30 mg PO DAILY 12/12/19 Metoprolol Tartrate 50 mg PO BID 12/12/19 Nitroglycerin 0.4 mg SL PRN PRN 12/12/19 Abatacept/Maltose [Orencia 250 mg Vial] 1 dose IV SEECOM 05/20/20 Clopidogrel Bisulfate [Plavix] 75 mg PO DAILY 05/20/20 Metformin ER [Glucophage ER] 1,000 mg PO DAILY 05/20/20 Ranolazine [Ranolazine ER] 500 mg PO DAILY 05/20/20 - Past Medical/Surgical History Has patient received pneumonia vaccine in the past: Yes Diabetic: Yes -: Hypertension -: CAD -: IDDM -: GERD -: open femoral artery from stent surg. IV ABX x 14 d -: and wound care of Ns with packing since 02/22/20. denied MRSA -: Angiogram -: Right Knee surgery -: Bilateral feet surgery -: Cardiac stents 02/22/20 - Family History Father Medical History: Heart disease Notes: father of heart attack Mother Medical History: Heart disease Notes: mother of heart attack - Social History Smoking Status: Former smoker Alcohol use: Yes CD- Drugs: No Caffeine use: Yes Place of Residence: Home Review of Systems 10-point ROS is otherwise unremarkable Physical Examination - Vital Signs Temperature: 97.4 F Blood Pressure: 146/74 Pulse: 100 Respirations: 16 Pulse Ox (%): 96 - Physical Exam General: Alert, In no apparent distress, Oriented x3 HEENT: Atraumatic, PERRLA, Mucous membr. moist/pink, EOMI, Sclerae nonicteric Neck: Supple, 2+ carotid pulse no bruit, No LAD, Without JVD or thyroid abnormality Respiratory: Clear to auscultation bilaterally, Normal air movement Cardiovascular: Regular rate/rhythm, Normal S1 S2 Gastrointestinal: Normal bowel sounds, Soft and benign, Non-distended, Tenderness (Suprapubic) Musculoskeletal: No clubbing, No swelling, No tenderness Integumentary: No rashes Neurological: Normal gait, Normal speech, Normal strength at 5/5 x4 extr, Normal tone, Sensation intact, Cranial nerves 3-12 intact, Normal affect Lymphatics: No axilla or inguinal lymphadenopathy - Studies Laboratory Data (last 24 hrs) 05/20/20 11:25: PT 12.6 H, INR 1.07 05/20/20 11:25: WBC 5.2, Hgb 10.8 L, Hct 33.3 L, Plt Count 241 05/20/20 11:25: Sodium 139, Potassium 4.0, BUN 35 H, Creatinine 2.57 H, Glucose 213 H, Magnesium 1.5 L, Total Bilirubin 0.5, AST 27, ALT 29, Alkaline Phosphatase 70 Assessment & Plan - Problems (Diagnosis) (1) Acute kidney injury Current Visit: Yes Status: Acute (2) Bladder retention of urine Current Visit: Yes Status: Acute (3) History of hypertension Current Visit: Yes Status: Acute (4) History of diabetes mellitus, type II Current Visit: Yes Status: Acute (5) History of coronary artery disease Current Visit: Yes Status: Acute (6) Rheumatoid arthritis Current Visit: Yes Status: Acute (7) History of immunosuppression therapy Current Visit: Yes Status: Acute - Plan Plan: 1. Continue with IV fluids 2. Monitor renal function closely 3. Continue with Flomax 4. Continue with strict blood pressure and blood sugar 5. Patient with questionable polycystic kidney disease; numerous kidney cyst. May need genetic testing. Monitor proteinuria 6. GI and DVT prophylaxis Discharge Plan: Home Plan to discharge in: Greater than 2 days - Advance Directives Does patient have a Living Will: Yes Does patient have a Durable POA for Healthcare: Yes - Code Status/Comfort Care Code Status Assessed: Yes Code Status: Full Code Critical Care: No Time Spent Managing PTS Care (In Minutes): 45
[2020-05-21] MEDS ORDERED: TAMSULOSIN 0.4 MG SR CAP PO ONE (16:30)
[2020-05-21 22:50] VITALS: O2SAT 97
[2020-05-22] MEDS: NA CHLORIDE 0.9% 1,000 ML IV SCH (06:54)
[2020-05-22] MEDS: INSULIN -REGULAR HUMAN 50 UNIT/0.5 ML ML SQ SCH ×2 (07:30→11:30)
[2020-05-22] MEDS: CLOPIDOGREL 75 MG TABLET PO SCH (08:02)
[2020-05-22] MEDS: METOPROLOL TAR 50 MG TAB PO SCH (08:03)
[2020-05-22] MEDS: INSULIN GLARGINE 100 UNITS/ML SQ SCH (08:03)
[2020-05-22] MEDS ORDERED: TAMSULOSIN 0.4 MG SR CAP PO SCH (09:00)
--- NOTE | 2020-05-22 09:48 | EKG ---
Test Date: 2020-05-20 Test Time: 11:31:33 Recreation Establishment Manager: TOPHER MEASUREMENT RESULTS: Intervals: Rate: 88 MT: 180 QRSD: 78 QT: 348 QTc: 421 Harris: P: 64 MT: 180 QRS: 18 T: 61 INTERPRETIVE STATEMENTS: Undetermined rhythm Otherwise normal ECG Compared to ECG 12/12/2019 02:04:33 Sinus rhythm no longer present Fusion complex(es) no longer present Myocardial infarct finding no longer present Electronically Signed On 05-22-20 09:44:49 CDT by Shubham Wilkerson
--- NOTE | 2020-05-22 10:09 | P.PN ---
Subjective Date of Service: 05/21/20 Subjective: No new changes, No C/O voiced, Improving Review of Systems 10-point ROS is otherwise unremarkable Physical Examination - Vital Signs Temperature: 98.3 F Blood Pressure: 168/79 Pulse: 88 Respirations: 16 Pulse Ox (%): 99 - Physical Exam General: Alert, In no apparent distress, Oriented x3 Respiratory: Clear to auscultation bilaterally, Normal air movement Cardiovascular: Regular rate/rhythm, Normal S1 S2, Systolic murmur Gastrointestinal: Normal bowel sounds, Soft and benign, Non-distended, No tenderness Musculoskeletal: No clubbing, No swelling Assessment & Plan - Problems (Diagnosis) (1) Acute kidney injury Current Visit: Yes Status: Acute (2) Bladder retention of urine Current Visit: Yes Status: Acute (3) History of hypertension Current Visit: Yes Status: Acute (4) History of diabetes mellitus, type II Current Visit: Yes Status: Acute (5) History of coronary artery disease Current Visit: Yes Status: Acute (6) Rheumatoid arthritis Current Visit: Yes Status: Acute (7) History of immunosuppression therapy Current Visit: Yes Status: Acute - Plan Plan: Continue with current plan of care: 1. Continue with IV fluids 2. Monitor renal function closely 3. Continue with Flomax; discontinue Hand catheter and if he voids anticipate discharge in the morning 4. Continue with strict blood pressure and blood sugar 5. Patient with questionable polycystic kidney disease; numerous kidney cyst. May need genetic testing. Monitor proteinuria 6. GI and DVT prophylaxis Discharge Plan: Home Plan to discharge in: 24 Hours - Advance Directives Does patient have a Living Will: Yes Does patient have a Durable POA for Healthcare: Yes - Code Status/Comfort Care Code Status: Full Code Critical Care: No Time Spent Managing PTS Care (In Minutes): 35
--- NOTE | 2020-05-22 10:18 | P.DS ---
Discharge Date: 05/22/20 Disposition: ROUTINE DISCHARGE Discharge Condition: GOOD Reason for Admission: ACUTE KIDNEY INJURY; CONCERN FOR OBSTRUCTIVE UROPATHY - Problems (1) Acute kidney injury Current Visit: Yes Status: Acute (2) Bladder retention of urine Current Visit: Yes Status: Acute (3) History of hypertension Current Visit: Yes Status: Acute (4) History of diabetes mellitus, type II Current Visit: Yes Status: Acute (5) History of coronary artery disease Current Visit: Yes Status: Acute (6) Rheumatoid arthritis Current Visit: Yes Status: Acute (7) History of immunosuppression therapy Current Visit: Yes Status: Acute Brief History of Present Illness: Patient is a 74-year-old gentlemen who reports to the emergency room after his car cleaner called and told him his creatinine has increased significantly. His baseline creatinine with an 0.75 and currently his creatinine is 2.57. Patient's baseline GFR is greater than 90. Patient is currently with a GFR of 25. Patient has been voiding as regularly as he normally does. Patient states he feels like his bladder is not emptying properly. He came into the hospital after being called by his car cleaner decrease of her rheumatoid arthritis with Gabriel. Patient will be admitted to the hospital and will review his medications. We will do bladder scan after he voids and see if he is having urinary retention. At this time, he will be admitted to the hospital for further evaluation and hydration to correct his renal function. Hospital Course: PATIENT DID WELL THROUGHOUT HIS HOSPITAL STAY. PATIENT'S RENAL FUNCTION WAS IMPROVED. CLINICALLY, PATIENT IS DOING BETTER. WE STARTED HIM ON FLOMAX HE HAD ALMOST 400CC IN HIS BLADDER AFTER VOIDING. HE DID NOT HAVE ANY HYDRONEPHROSIS ON HIS DIAGNOSTIC EXAM. HE DID HAVE MULTIPLE CYSTS OF HIS KIDNEYS. I SHORE PAST 2 IF HE HAD POLYCYSTIC KIDNEY DISEASE. HE MAY NEED GENETIC TESTING. THIS CAN BE DONE AN OUTPATIENT. AT THIS TIME PATIENT IS DOING WELL AND HE IS STABLE FOR DISCHARGE HOME. HE WILL FOLLOW-UP WITH UROLOGY AND NEPHROLOGY IN 2-4 WEEKS. OUTPATIENT LABS IN 1 WEEK. Vital Signs/Physical Exam: Temp Pulse Resp BP Pulse Ox 98.3 F 88 16 168/79 H 99 05/22/20 10:09 05/22/20 10:05/22/20 10:09 05/22/20 10:05/22/20 10:09 General: Alert, In no apparent distress, Oriented x3 Laboratory Data at Discharge: WBC 5.2 K/uL (4.3-10.9) 05/21/20 05:15 Hgb 9.9 g/dL (13.6-17.9) L 05/21/20 05:15 Hct 30.5 % (39.6-49.0) L 05/21/20 05:15 Plt Count 225 K/uL (152-406) 05/21/20 05:15 PT 12.6 SECONDS (9.5-12.5) H 05/20/20 11:25 INR 1.07 05/20/20 11:25 Sodium 141 mmol/L (136-145) 05/21/20 05:15 Potassium 3.8 mmol/L (3.5-5.1) 05/21/20 05:15 BUN 25 mg/dL (7-18) H 05/21/20 05:15 Creatinine 1.87 mg/dL (0.55-1.3) H 05/21/20 05:15 Glucose 162 mg/dL (74-106) H 05/21/20 05:15 Magnesium 1.5 mg/dL (1.8-2.4) L 05/20/20 11:25 Total Bilirubin 0.4 mg/dL (0.2-1.0) 05/21/20 05:15 AST 22 U/L (15-37) 05/21/20 05:15 ALT 21 U/L (12-78) 05/21/20 05:15 Alkaline Phosphatase 58 U/L (45-117) 05/21/20 05:15 Home Medications: Insulin Glargine,Hum.rec.anlog [Lantus] 100 units SQ DAILY 06/18/14 Liraglutide [Victoza 2-Abundio] 1.8 mg SQ DAILY 06/18/14 Rosuvastatin Calcium [Crestor] 40 mg PO DAILY 06/18/14 Empagliflozin [Jardiance] 25 mg PO DAILY 12/12/[address] 30 mg PO DAILY 12/12/19 Metoprolol Tartrate 50 mg PO BID 12/12/19 Nitroglycerin 0.4 mg SL PRN PRN 12/12/19 Abatacept/Maltose [Orencia 250 mg Vial] 1 dose IV SEECOM 05/20/20 Clopidogrel Bisulfate [Plavix*] 75 mg PO DAILY 05/20/20 Metformin ER [Glucophage ER*] 1,000 mg PO DAILY 05/20/20 Ranolazine [Ranolazine ER] 500 mg PO DAILY 05/20/20 Benazepril HCl 10 mg PO DAILY #30 tablet 05/22/20 Tamsulosin [Flomax] 0.4 mg PO BEDTIME #30 cap 05/22/20 New Medications: Benazepril HCl 10 mg PO DAILY #30 tablet Tamsulosin [Flomax] 0.4 mg PO BEDTIME #30 cap Patient Discharge Instructions: OK TO DC IV AND DC HOME. FOLLOW-UP WITH PRIMARY CARE PROVIDER IN 1-2 WEEKS. FOLLOW-UP WITH NEPHROLOGY, DR. HICKMAN, IN 1-2 WEEKS. FOLLOW-UP WITH UROLOGY, DR. RASHID, IN 2-4 WEEKS. RETURN TO THE ER IF symptoms worsen. PLEASE HAVE LABS CHECKED IN 1 WEEK OF CHECK BASIC METABOLIC PROFILE. CALL or TEXT DR. SOLORIO AT [phone] IF ANY QUESTIONS REGARDING HOSPITAL STAY. PLEASE CALL THE FLOOR AT [phone] IF ANY MEDICATION OR NURSING QUESTIONS. Diet: AHA Activity: Fall precautions Time spent managing pt's care (in minutes): 35
[2020-05-22 12:12] VITALS: TEMP 97.8
[2020-05-22 12:26] VITALS: BP 150/80
== END 2020-05-22 12:36 | disposition home or self-care (01) | DRG 684 ==
LOC: ER 10:47 → ERHOLD 12:55 → 2ND 15:36
PROVIDERS: ADMIT Hospitalist; ATTEND Hospitalist
DX: N17.9 Acute kidney failure, unspecified (principal); E11.9 Type 2 diabetes mellitus without complications; M06.9 Rheumatoid arthritis, unspecified; I10 Essential (primary) hypertension; K21.9 Gastro-esophageal reflux disease without esophagitis; I25.10 Atherosclerotic heart disease of native coronary artery without angina pectoris; R33.9 Retention of urine, unspecified; Z95.5 Presence of coronary angioplasty implant and graft; Z87.891 Personal history of nicotine dependence; Z79.4 Long term (current) use of insulin; Z79.02 Long term (current) use of antithrombotics/antiplatelets; Z79.899 Other long term (current) drug therapy
CPT/HCPCS: 36415; 51702; 71045; 74176; 76377; 80048; 80053; 80076; 81003; 81015; 82947; 83735; 83880; 85025; 85610; 93005; 96365; 99285; J0360; J1815; J3475; J7030

== ENCOUNTER 2020-08-30 13:47 | Emergency (ER) | payer OTHER ==
[2020-08-30] MEDS ORDERED: RSI MEDICATION KIT IV ONE (13:48)
[2020-08-30] MEDS ORDERED: NA CHLORIDE 0.9% 1,000 ML ONE ×2 (13:48→14:17)
[2020-08-30] MEDS ORDERED: ETOMIDATE 20 MG/10 ML VIAL IV ONE (13:48)
--- OUTSIDE RECORDS SUMMARY | 2020-08-30 13:52 | XMS REPORT | Clinical Summary ---
:1945 Author Organization [facility] Address [address] [place] [address] Care Team Providers Name Role Phone Unavailable Primary Care Provider Unavailable Allergies No Known Allergies Medications Medication Sig Dispensed Refills Start End Status Date Date nitroglycerin Place 0.4 mg 0 Act mar (NITROSTAT) 0.4 MG under the tongue SL every 5 (five) tabletIndications: minutes as needed acute episode of for Chest pain anginal pain Put 1 pill under tongue every [...] (CRESTOR) 40 MG mouth daily . tabletIndications: atherosclerotic cardiovascular disease metFORMIN Take 1,000 mg by 0 Act [...] e (LOTENSIN) 20 MG mouth daily. tabletIndications: hypertension empagliflozin Take 25 mg by 0 Ac tive (JARDIANCE) 25 mg mouth daily. tablet abatacept (ORENCIA) Inject 0 Active infusion intravenously every 28 days. clopidogreL (PLAVIX) Take 1 tablet (75 30 tablet 0 12/18/19 0 Active 75 mg tablet mg total) by 20 021 mouth daily. ranolazine (RANEXA) Take 1 tablet 60 tablet 0 12/17/19 Active 500 MG 12 hr tablet (500 mg total) by 20 02 1 mouth 2 (two) times daily. metoprolol tartrate Take 1 tablet (50 60 tablet 11 02/24/20 Active (LOPRESSOR) 50 MG mg total) by 20 021 tablet mouth 2 (two) times daily. tamsulosin (FLOMAX) Take 0.4 mg by 0 05/22/20 Active 0.4 mg Cap 24 hr mouth daily. 20 capsule furosemide (LASIX) Take 40 mg by 0 Discontinued 40 MG mouth 2 (two) 020 (Stop Taking at tabletIndications: times daily. Discharge) edema metoprolol tartrate Take 50 mg by 0 Discontinued (LOPRESSOR) 50 MG mouth 2 (two) 020 (Reorder) tabletIndications: times daily. hypertension acetaminophen-codein Take 1 tablet by 0 Discontinued e (TYLENOL #3) mouth every 4 020 ( Stop Taking at 300-30 mg per tablet (four) hours as Discharge) needed for Pain. gabapentin Take 600 mg by 0 Disc ontinued (NEURONTIN) 300 MG mouth 3 (three) 020 (Med History: capsuleIndications: times daily as Patient neuropathic pain needed . Rep orted Med no longer yandy ing) aspirin 81 MG Take 162 mg by 0 D iscontinued chewable tablet mouth daily. 020 ( Med History: Patient Reported M ed no longer yandy ing) metoprolol tartrate Take 75 mg by 60 tablet 0 12/17/19 Discontinued 75 mg mouth 2 (two) 20 020 (Stop Taking at TabIndications: times daily. D ischarge) hypertension isosorbide Take 1 tablet (30 30 tablet 0 12/18/19 D iscontinued mononitrate (IMDUR) mg total) by 20 020 (Stop Taking at 30 MG 24 hr tablet mouth daily. Discharge) ibuprofen Take 200 mg by 0 Disco ntinued (ADVIL,MOTRIN) 200 mouth every 6 020 (Patient MG tablet (six) hours as Disch arge) needed for Pain. apixaban (ELIQUIS) 5 Take 1 tablet (5 60 tablet 11 02/24/20 Discontinued mg Tab tablet mg total) by 20 020 (Me d History: mouth 2 (two) Patien t times daily. Reporte d Med no longer yandy ing) HYDROcodone-acetamin Take 1 tablet by 30 tablet 0 02/24/20 ophen (NORCO mouth every 6 20 020 7.5-325) 7.5-325 mg (six) hours as per tablet needed for Pain for up to 10 days. Max Daily Amount: 4 tablets Active Problems Problem Noted Date CAD (coronary artery disease) 02/21/2020 Coronary artery disease involving la posta heart without angina pectoris, 02/21/2020 unspecified vessel or lesion type CAD, multiple vessel 12/15/2019 Acute respiratory insufficiency Acute blood loss anemia Hyperglycemia Encounters Date Type Specialty Care Team Description 08/10/2020 Hospital Encounter Radiology Yifan Carmona PAD (per boaz Mckoy MD artery disease) ([facility]) 07/22/2020 Outside Orders Central Scheduling Yifan Carmona PAD (p eripheral artery disease) ([facility]) (Primary Dx); MD Stefania Mckoyan ricardo of skin sensation 06/02/2020 Office Visit Cardiology Wally, Post-operative state Maycol Dsouza MD 04/20/2020 Office Visit Cardiology Wally, Encounter for Maycol Dsouza postoperativ e wound MD check 04/06/2020 Office Visit Cardiology Wally, Visit for wound check Maycol Dsouza, (Primary Dx) 04/06/2020 Travel 03/08/2020 Office Visit Cardiology Wally, Post-operative state Maycol Dsouza MD 02/25/2020 Documentation Rosalie Roque RN 02/22/2020 Anesthesia Event Derek Sanford MD 02/22/2020 Surgery [facility], REMOVAL,IMPELLA PUMP Maycol Dsouza MD 02/22/2020 Surgery KristineLeonardo contreras S, PCI W/ IMPEL LA C[place]Y [place] - IP PROC ONLY* * 02/22/2020 Anesthesia Event Mathew Strong, Ash Holcomb MD 02/21/2020 - Hospital Encounter Cardiology Quynh, Coronary artery disease involving la posta heart without angina pectoris, unspecified vessel or lesion type (Primary Dx); 02/24/2020 MD Eleazar Peripheral artery disease (HCC); Stephanie Deany Chest pain, uns pecified type MD Vivian 02/21/2020 Travel 02/19/2020 Orders Only Cardiology Leonardo Carmona MD 02/18/2020 Hospital Encounter Pre-Admission Testing 02/18/2020 Travel 12/15/2019 - Hospital Encounter Cardiology Suzie Hoffman CAD, mult iple vessel 12/17/2019 MD Slava 12/15/2019 Orders Only General Internal Medicine 12/15/2019 Travel after 08/30/2019 Family History Medical History Relation Name Comments Heart disease Father Heart disease Mother Relation Name Status Comments Father Mother Social History Tobacco Use Types Packs/Day Years Used Date Former Smoker Quit: 12/14/18 77 Smokeless Tobacco: Never Used Alcohol Use Drinks/Week oz/Week Comments Yes 21 Glasses of wine 21.0 Sex Assigned at Date Recorded Not on file Last Filed Vital Signs Vital Sign Reading Time Taken Comments Blood Pressure 165/78 06/02/2020 12:35 PM CDT Pulse 64 06/02/2020 12:35 PM CDT Temperature 36.9 C (98.5 F) 06/02/2020 12:35 PM CDT Respiratory Rate 16 06/02/2020 12:35 PM CDT Oxygen Saturation 98% 06/02/2020 12:35 PM CDT Inhaled Oxygen Concentration - - Weight 91.6 kg (202 lb) 06/02/2020 12:35 PM CDT Height 180 cm (5' 10.87") 03/08/2020 10:22 AM CDT Body Mass Index 28.28 03/08/2020 10:22 AM CDT Plan of Treatment Health Maintenance Due Date Last Done Comments MEDICARE ANNUAL WELLNESS (YEAR 2 07/11/2010 or FIRST YEAR if no IPPE) DEPRESSION SCREENING (12+) 09/09/2019 INFLUENZA VACCINE (#1) 2020 07/11/2015, 06/21/2014, 07/16/2013, Additional history exists PNEUMOCOCCAL 65+ YRS Completed 06/21/2014 Implants Implanted Type Area Auto Vinyl Top Installer Device Shelf Model / Identifier Expiration Serial / Date Lot Stent Synergy Otw [id number] - [id number] IMPLANTS N/A: [employer] [id number] 06/14/2021 [id number] / Implanted: Qty: 1 on 02/22/2020 by Leonardo Carmona MD at [facility] Coronary SCI:INTERV / CARDIOLOGY [id number] Description:MID LAD Stent Synergy Otw [id number] - [id number] IMPLANTS N/A: [employer] [id number] 07/06/2021 [id number] / Implanted: Qty: 1 on 02/22/2020 by Leonardo Carmona MD at [facility] Coronary SCI:INTERV / CARDIOLOGY [id number] Description:PROX LAD Stent Synergy Mr [id number] - [id number] IMPLANTS N/A: [employer] [id number] 07/27/2021 [id number] / Implanted: Qty: 1 on 02/22/2020 by Leonardo Carmona MD at [facility] Coronary SCI:INTERV / CARDIOLOGY [id number] Description:Circ Procedures Procedure Name Priority Date/Time Associated Comments Diagnosis CT/CTA AAA AND RUNOFF Routine 08/10/2020 8:25 PAD (peripheral Results for this AM BEHAVIORAL HEALTH SPECIALIST artery disease) procedure ar e in (HCC) the results section. POCT-CREATININE Routine 08/10/2020 8:16 Results for this AM BEHAVIORAL HEALTH SPECIALIST procedure are i n the results section. VASCULAR DIAGRAM 03/02/2020 3:24 -SCAN PM CDT [...] 396 ms QTC Calculation(Bazett) 439 ms P [place] 46 degrees R [place] 10 degrees T [place] 99 degrees Sinus rhythm with Premature atrial [...] 396 ms QTC Calculation(Bazett) 433 ms P [place] 45 degrees R [place] 6 degrees T [place] 96 degrees Poor data quality, interp retation [...] ) the results section. REMOVAL,IMPELLA PUMP 02/22/2020 12:15 Coronary artery PM CDT disease with angina pectoris, unspecified vessel or lesion type, unspecified whether la posta or transplanted heart (HCC) Case Notes 1 [...] the results section. PCI W/ IMPELLA 02/22/2020 7:48 AM Atherosclerosis of MCR - IP PROC CDT coronary artery with ONLY angina pectoris, unspecified vessel or lesion type, unspecified whether la posta or transplanted heart (HCC) Case Notes (1)CASE 6TOP / ANESTHESIA ECG 12-LEAD Routine 02/21/2020 6:39 PM CDT Procedure Note - Interface, External Ris In - 02/25/2020 4:40 PM CDT Ventricular Rate 80 BPM Atrial Rate 80 BPM P-R Interval 184 ms QRS Duration 82 ms Q-T Interval 376 ms QTC Calculation(Bazett) 433 ms P [place] 46 degrees R [place] 31 degrees T [place] 54 degrees Sinus rhythm with marked sin us arrhythmia Otherwise normal ECG When compared with ECG of 18:12, Premature supraventricular c omplexes are no longer Present QRS axis Shifted right Criteria for Septal infarct are no longer Present ST no longer depressed in La teral leads T wave inversion no longer e vident in Anterolateral leads QT has shortened ECG 12-LEAD Routine 02/21/2020 6:39 PM CDT Resu lts for this procedure are i n the results section . SARS-COV2/RT-PCR (HS & Routine 02/21/2020 6:28 PM CDT Results [...] ECG 12-LEAD Routine 12/15/2019 6:12 PM CDT Procedure Note - Interface, External Ris In - 12/16/2019 4:16 AM CDT Ventricular Rate 89 BPM Atrial Rate 89 BPM P-R Interval 176 ms QRS Duration 88 ms Q-T Interval 452 ms QTC Calculation(Bazett) 549 ms P [place] 62 degrees R [place] -47 degrees T [place] 164 degrees Sinus rhythm with Premature supraventricular complexes Left axis deviation Septal infarct , age undeter mined ST & T wave abnormality, con real estate representative inferior ischemia ST & T wave abnormality, con real estate representative anterolateral ischemia Prolonged QT Abnormal ECG No previous ECGs available ECG 12-LEAD Routine 12/15/2019 6:12 PM CDT Resu lts for this procedure are in the resu lts section. XR CHEST 1 VIEW Routine 12/15/2019 5:59 PM CDT R esults for this procedure PORTABLE/BEDSIDE are in the results section. POCT-GLUCOSE METER Routine 12/15/2019 3:58 PM CDT Results for this procedure are in the resu lts section. after 08/30/2019 Results CTA AAA and Runoff (08/10/2020 8:25 AM BEHAVIORAL HEALTH SPECIALIST) Specimen Narrative Performed At Addendum Begins RIS REPORT STATUS:A Addendum: I agree with the previously described no n vascular findings. Generalized fatty infiltration of the li malia is apparent. There are numerous small bilateral renal cysts yousif dent. The wall of the urinary bladder is diffu sely thickened. The urinary bladder is not distended. Chronic degenerative changes are present in the lower lumbar spine. 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 Signed: Kenny Arvizu MD Report Verified Date/Time: 08/12/2020 16:25:56 Reading Location: [facility] Radiology Readin g Room Addendum Ends FINAL REPORT CTA AAA with bilateral external runoff - 08/10/2020 8:39 AM. Comparison: None available History: 75 years old Male with acute limb ischemia and suspected severe peripheral vascular disease. Ev aluated for further treatment options. Indication: Clinically suspected periphe ral vascular disease. This study is performed in an attempt to avoi d an invasive procedure. Technique: Multi-detector CT technolog y was employed ([place] CT 660 scanner). Spiral acquisition before and during intravenous contrast administration. Images were obtained bef ore and during the dynamic passage of intravenous contrast material . Multi-planar 3-D volume-rendering reconstruction was perf ormed using an independent workstation interactively by the interpr eting physician as well as the 3-D specialist for optimal visualiza tion of the abdominal aorta, pelvic arteries as well as its branches, along with bilateral lower extremity vasculature. Please refer to the contrast sheet scann ed in the [employer] system for the amount and route of contrast given. This exam was performed according to our departmental dose-optimization programme, which inclu rebecca automated exposure control, adjustment of the mA and/or kV according to patient size and/or use of iterative reconstruction t echnique. Dose modulation, iterative reconstruction, and/or weight based adjustment of the mA/kV was utilized to reduce the radiation dos e to as low as reasonably achievable. RESULT: Potential study limitations: None. LIMITED CHEST: The visualized chest wall is unremarkabl e. The visualized lungs reveal no acute abnormalities. VASCULAR WITH ADVANCED 3-D OFFLINE POST- PROCESSING: The abdominal aorta: Normal in course and caliber with mild to moderate calcification predominantly inv olving the infrarenal segment of the abdominal aorta The celiac salo ry, SMA, and AVANI are patent. The bilateral single renal arteries are patent. There is no acute aortic pathology, such as dissection, intramural hematoma, or contained rupture. Levers Lace Machine Operator dimensions of the abdomin al aorta are as follows: *2.1 cm at the supra-mesenteric segment *2.0 cm at the mesenteric segment *1.9 cm at the renal segment *1.4 cm at the infrarenal segment *1.4 cm at the aortic bifurcation The right common iliac artery has steam service inspector iorly predominant moderate calcific atherosclerotic changes with a minimal luminal diameter measuring 6.8 x 8.8 mm. The right data management engineer al iliac artery is normal in course caliber and contour with minimal calcific atherosclerotic changes with a minimal luminal diameter measuring 7.6 x 8.0 mm. The right common femoral artery has severe p rotruding calcification involving the distal segment before the bifurcation leading to at least moderate luminal stenosis with a m inimal luminal diameter measuring 2.8 x 3.3 mm. The left common iliac artery has mild to moderate calcification with a minimal luminal diameter measuring 6.1 x 7.6 mm. The left external iliac artery is patent with mild to mode rate calcific atherosclerotic changes. The distal segment of the left common femoral artery has severe protruding calcification just bef ore its bifurcation leading to moderate to severe luminal stenosis w ith minimal luminal diameter measuring 2.1 x 3.5 mm. The Inflow vessels: The left superficial femoral appears to be patent with near circumferential calcification throughout the course, and of the luminal diameter is limited by the yeung ing artifact from the calcification. However, there is at leas t mild to moderate luminal stenosis at its mid segment with a protr uding calcification. The left popliteal artery is patent with no circumferential calcification though no significant rizwana nal stenosis. The left tibioperoneal trunk is widely patent. Th e left anterior tibial artery has near circumferential calcification l imiting the assessment of luminal patency however at its distal se gment it continues as faintly filled dorsalis pedis artery. The left p eroneal artery is normal size with no significant luminal stenosis and terminates just above the ankle. The left posterior tibial artery is patent at its proximal and mid segments and continuous as a faintly filled posterior plantar branches. The right superficial femoral artery has diffuse near circumferential calcification. At its mid segment the ri ght SFA has severe protruding calcification with at least moderate to severe luminal stenosis with another similar protruding calcification at its distal segment with again a moderate luminal stenosis noted. The right popliteal artery is severely c alcified with moderate to severe luminal stenosis at its mid segme nt. The distal segment of the popliteal artery is normal caliber with minimal calcification and no evidence of luminal stenosis. The right peroneal trunk is widely patent. The right anterior tibial artery has diffuse calcification though widely patent and continues at it s distal segment has normal caliber dorsalis pedis artery. The right peroneal artery is normal size with diffuse luminal ligamentous an d terminates just above the ankle. The right posterior tibial artery has diffuse calcific atherosclerotic changes however at its d istal segment it continues as a normal caliber posterior plantar branc hes. ABDOMEN-PELVIS: In the abdomen, the liver and spleen telma ears unremarkable. No abnormal enhancing structure is identifi ed. The gallbladder and pancreas appears grossly normal. The adr enal glands are not enlarged. The kidneys are normal in size and shape . No hydronephrosis or perirenal fluid collection is identified . There are simple appearing renal cysts at the upper pole of the lef t and lower pole of the right kidneys, respectively with the largest m easuring 1.6 cm. Bowel is not well assessed by CT angiogr aphy as enteric contrast is not given. No obvious bowel dilation is seen. There is no significant retroperitoneal adenopathy. No free fluid or free air is identified. The visualized pelvic organs appear unre markable. BONES: Degenerative changes involving the lumba r spine. Impression: 1. The abdominal aorta is normal in cour se and caliber with mild to moderate near circumferential calcificat ion prominently involving the infrarenal segment of the abdominal aort a. No acute abnormalities identified. The right common femoral artery has lizzy re protruding calcification involving the distal segment before the bifurcation leading to at least moderate luminal stenosis with a m inimal luminal diameter measuring 2.8 x 3.3 mm. 2. The distal segment of the left common femoral artery has severe protruding calcification just before its bifurcation leading to moderate to severe luminal stenosis with minimal luminal diameter measuring 2.1 x 3.5 mm. 3. Mid right SFA has severe protruding c alcification with at least moderate to severe luminal stenosis with another similar protruding calcification at its distal segment with again a moderate luminal stenosis noted. 4. The right popliteal artery is severel y calcified with moderate to severe luminal stenosis at its mid segme nt. An addendum will be dictated regarding t he non-vascular findings by the Refrigeration Lead Radiologists. Signed: Buck Sears MD Report Verified Date/Time: 08/10/2020 14:41:04 Reading Location: [place] [address] CT Reading Room Electronically signed by: KENNY simpson 08/12/2020 04:25 PM Procedure Note Interface, External Ris In - 08/12/2020 4:28 PM BEHAVIORAL HEALTH SPECIALIST Addendum Begins REPORT STATUS:A Addendum: I agree with the previously described no n vascular findings. Generalized fatty infiltration of the li malia is apparent. There are numerous small bilateral renal cysts yousif dent. The wall of the urinary bladder is diffu sely thickened. The urinary bladder is not distended. Chronic degenerative changes are present in the lower lumbar spine. 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 Signed: Kenny Arvizu MD Report Verified Date/Time: 08/12/2020 1 6:25:56 Reading Location: [facility] Radiology Readin Room Addendum Ends FINAL REPORT CTA AAA with bilateral external runoff - 08/10/2020 8:39 AM. Comparison: None available History: 75 years old Male with acute l imb ischemia and suspected severe peripheral vascular disease. Linh luated for further treatment options. Indication: Clinically suspected periphe ral vascular disease. This study is performed in an attempt to avoi d an invasive procedure. Technique: Multi-detector CT technology was employed ([place] CT 660 scanner). Spiral acquisition before and during intravenous contrast administration. Images were obtained bef ore and during the dynamic passage of intravenous contrast material . Multi-planar 3-D volume-rendering reconstruction was perf ormed using an independent workstation interactively by the interpr eting physician as well as the 3-D specialist for optimal visualiza tion of the abdominal aorta, pelvic arteries as well as its branches, along with bilateral lower extremity vasculature. Please refer to the contrast sheet scann ed in the [employer] system for the amount and route of contrast given. This exam was performed according to our departmental dose-optimization programme, which inclu rebecca automated exposure control, adjustment of the mA and/or kV according to patient size and/or use of iterative reconstruction t echnique. Dose modulation, iterative reconstruction, and/or weight based adjustment of the mA/kV was utilized to reduce the radiation dos e to as low as reasonably achievable. RESULT: Potential study limitations: None. LIMITED CHEST: The visualized chest wall is unremarkabl e. The visualized lungs reveal no acute abnormalities. VASCULAR WITH ADVANCED 3-D OFFLINE POST- PROCESSING: The abdominal aorta: Normal in course a nd caliber with mild to moderate calcification predominantly inv olving the infrarenal segment of the abdominal aorta The celiac arter y, SMA, and AVANI are patent. The bilateral single renal arteries are patent. There is no acute aortic pathology, such as dissection, intramural hematoma, or contained rupture. Levers Lace Machine Operator dimensions of the abdomin al aorta are as follows: *2.1 cm at the supra-mesenteric segment *2.0 cm at the mesenteric segment *1.9 cm at the renal segment *1.4 cm at the infrarenal segment *1.4 cm at the aortic bifurcation The right common iliac artery has steam service inspector iorly predominant moderate calcific atherosclerotic changes with a minimal luminal diameter measuring 6.8 x 8.8 mm. The right data management engineer al iliac artery is normal in course caliber and contour with minimal calcific atherosclerotic changes with a minimal luminal diameter measuring 7.6 x 8.0 mm. The right common femoral artery has severe p rotruding calcification involving the distal segment before the bifurcation leading to at least moderate luminal stenosis with a m inimal luminal diameter measuring 2.8 x 3.3 mm. The left common iliac artery has mild to moderate calcification with a minimal luminal diameter measuring 6.1 x 7.6 mm. The left external iliac artery is patent with mild to mode rate calcific atherosclerotic changes. The distal segment of the left common femoral artery has severe protruding calcification just bef ore its bifurcation leading to moderate to severe luminal stenosis w ith minimal luminal diameter measuring 2.1 x 3.5 mm. The Inflow vessels: The left superficial femoral appears to be patent with near circumferential calcification throughout the course, and of the luminal diameter is limited by the yeung ing artifact from the calcification. However, there is at leas t mild to moderate luminal stenosis at its mid segment with a protr uding calcification. The left popliteal artery is patent with no circumferential calcification though no significant rizwana nal stenosis. The left tibioperoneal trunk is widely patent. Th e left anterior tibial artery has near circumferential calcification l imiting the assessment of luminal patency however at its distal se gment it continues as faintly filled dorsalis pedis artery. The left p eroneal artery is normal size with no significant luminal stenosis and terminates just above the ankle. The left posterior tibial artery is patent at its proximal and mid segments and continuous as a faintly filled posterior plantar branches. The right superficial femoral artery has diffuse near circumferential calcification. At its mid segment the ri ght SFA has severe protruding calcification with at least moderate to severe luminal stenosis with another similar protruding calcification at its distal segment with again a moderate luminal stenosis noted. The right popliteal artery is severely c alcified with moderate to severe luminal stenosis at its mid segme nt. The distal segment of the popliteal artery is normal caliber with minimal calcification and no evidence of luminal stenosis. The right peroneal trunk is widely patent. The right anterior tibial artery has diffuse calcification though widely patent and continues at it s distal segment has normal caliber dorsalis pedis artery. The right peroneal artery is normal size with diffuse luminal ligamentous an d terminates just above the ankle. The right posterior tibial artery has diffuse calcific atherosclerotic changes however at its d istal segment it continues as a normal caliber posterior plantar branc hes. ABDOMEN-PELVIS: In the abdomen, the liver and spleen telma ears unremarkable. No abnormal enhancing structure is identifi ed. The gallbladder and pancreas appears grossly normal. The adr enal glands are not enlarged. The kidneys are normal in size and shape . No hydronephrosis or perirenal fluid collection is identified . There are simple appearing renal cysts at the upper pole of the lef t and lower pole of the right kidneys, respectively with the largest m easuring 1.6 cm. Bowel is not well assessed by CT angiogr aphy as enteric contrast is not given. No obvious bowel dilation is seen. There is no significant retroperitoneal adenopathy. No free fluid or free air is identified. The visualized pelvic organs appear unre markable. BONES: Degenerative changes involving the lumba r spine. Impression: 1. The abdominal aorta is normal in cour se and caliber with mild to moderate near circumferential calcificat ion prominently involving the infrarenal segment of the abdominal aort a. No acute abnormalities identified. The right common femoral artery has lizzy re protruding calcification involving the distal segment before the bifurcation leading to at least moderate luminal stenosis with a m inimal luminal diameter measuring 2.8 x 3.3 mm. 2. The distal segment of the left common femoral artery has severe protruding calcification just before its bifurcation leading to moderate to severe luminal stenosis with minimal luminal diameter measuring 2.1 x 3.5 mm. 3. Mid right SFA has severe protruding c alcification with at least moderate to severe luminal stenosis with another similar protruding calcification at its distal segment with again a moderate luminal stenosis noted. 4. The right popliteal artery is severel y calcified with moderate to severe luminal stenosis at its mid segme nt. An addendum will be dictated regarding t he non-vascular findings by the Refrigeration Lead Radiologists. Signed: Buck Sears MD Report Verified Date/Time: 08/10/2020 1 4:41:04 Reading Location: [place] [id number] CT Reading Room Performing Organization Address City/[facility]/Zipcode Phone Number GE TRAVIS POC-Creatinine (08/10/2020 8:16 AM BEHAVIORAL HEALTH SPECIALIST) POC-Creatinine 0.8 0.6 - 1.3 mg/dL [facility] Comment: [facility] : TESTED AT [address], [address] CENTER : Desulphurizer Operator/Junior Qa Analyst ID = [id number] for Aretha Diallo POC-EGFR 94 mL/min/1.73M2 [facility] Specimen Blood Performing Organization Address [facility]/[place] Phone Number [address] [address] [place] VASCULAR DIAGRAM -SCAN (03/02/2020 3:24 PM CDT) [...] period is included. POC-Glucose Meter 148 (H)Comment: 70 - 110 mg/dL [facility] : TESTED AT [address], [address]: Desulphurizer Operator/Technic shaunna ID = [id number] for ELA LAURENCE Specimen Blood Performing Organization Address [facility]/Zipcode Phone Number [address] [address] CENTER CBC with platelet count + automated diff (02/24/2020 5:25 AM CDT)Only the most recent of3 resultswithin the time period is included. Pathologist Sig nature WBC 8.0 3.5 - 10.5 [facility] RBC 3.16 (L) 4.63 - 6.08 [facility] M/L [facility] Hemoglobin 9.7 (L) 13.7 - 17.5 [facility] GM/DL [facility] Hematocrit 30.3 (L) 40.1 - 51.0 % [facility] MCV 95.9 (H) 79.0 - 92.2 fL [facility] MCH 30.7 25.7 - 32.2 pg [facility] MCHC 32.0 (L) 32.3 - 36.5 [facility] RDW 14.8 (H) 11.6 - 14.4 % [facility] Platelets 128 (L) 150 - 450 K/CU [facility] MPV 10.3 9.4 - 12.4 fL [facility] nRBC 0 0 - 0 /100 WBC [facility] % Neutros 62 % [facility] % Lymphs 22 % [facility] % Monos 14 % [facility] % Eos 1 % [facility] % Baso 1 % [facility] # Neutros 4.93 1.78 - 5.38 [facility] # Lymphs 1.77 1.32 - 3.57 [facility] # Monos 1.14 (H) 0.30 - 0.82 [facility] # Eos 0.10 0.04 - 0.54 [facility] CENTER # Baso 0.04 0.01 - 0.08 [facility] Immature 1 0 - 1 % [facility] Specimen Blood Performing Organization Address City/[facility]/Zipcode Phone Number [address] [address] CENTER Phosphorus (02/24/2020 5:25 AM CDT)Only the most recent of4 resultswithin the time period is included. Pathologist Sig nature Phosphorus 2.5 2.3 - 4.7 mg/dL [facility] Specimen Blood Narrative Performed At Desulphurizer Operator ID - WALDO Garcia [facility] Performing Organization Address City/State/Zipcode Phone Number [address] [address] CENTER Magnesium (02/24/2020 5:25 AM CDT)Only the most recent of6 resultswithin the time period is included. Pathologist Sig nature Magnesium 2.4 1.6 - 2.6 mg/dL [facility] Specimen Blood Narrative Performed At Desulphurizer Operator ID - WALDO Garcia [facility] Performing Organization Address City/State/Zipcode Phone Number [address] [address] [place] Basic Metabolic Panel (02/24/2020 5:25 AM CDT)Only the most recent of10 results within the time period is included. Sodium 138 136 - 145 meq/L [facility] Potassium 3.9 3.5 - 5.1 meq/L [facility] Chloride 107 98 - 107 meq/L [facility] CO2 24 22 - 29 meq/L [facility] BUN 9 7 - 21 mg/dL [facility] Creatinine 0.92 0.57 - 1.25 [facility] mg/dL [facility] Glucose 130 (H) 70 - 105 mg/dL [facility] Calcium 8.4 8.4 - 10.2 [facility] mg/dL [facility] EGFR 80Comment: ESTIMATED mL/min/1.[address] [facility] GFR IS NOT m [facility] ACCURATE CENTER CREATININE CLEARANCE IN PREDICTING GLOMERULAR FILTRATION RATE. ESTIMATED GFR IS NOT APPLICABLE FOR DIALYSIS PATIENTS. Specimen Blood Narrative Performed At Desulphurizer Operator ID - PIAYA L [facility] Performing Organization Address City/State/Zipcode Phone Number [facility] [address] [place] [address] CENTER TRANSFUSION SERVICE REPORT - [...] 396 ms QTC Calculation(Bazett) 439 ms P [place] 46 degrees R [place] 10 degrees T [place] 99 degrees Sinus rhythm with Premature atrial [...] 396 ms QTC Calculation(Bazett) 439 ms P [place] 46 degrees R [place] 10 degrees T [place] 99 degrees Sinus rhythm with Premature atrial [...] has shortened Confirmed by MD IDALIA, EVA ([id number]) on 02/23/2020 12:43:33 PM Performing Organization Address City/[facility]/[place] Phone Number GE MUSE XR chest 1 view portable / bedside (02/23/2020 7:07 AM CDT)Only the most recent of3 resultswithin the time period is included. Specimen Narrative Performed At FINAL REPORT GE Subtext CLINICAL HISTORY: s/p PCI, impella remov al TECHNIQUE: 1 view of the chest. COMPARISON: 12/16/2019 IMPRESSION: There are no focal infiltrates or effusi ons. The cardiomediastinal silhouette is magnified by technique. Th e osseous structures appear intact. There is mild elevation of the r ight hemidiaphragm. Signed: Dorothy Ferreira MD Report Verified Date/Time: 02/23/2020 07:27:25 Reading Location: [employer] Reading Room Procedure Note Interface, External Ris [...] Verified Date/Time: 02/23/2020 0 7:27:25 Reading Location: [employer] Reading Room Performing Organization Address City/[facility]/[place] Phone Number [employer] [facility] RIS Lactic Acid, Arterial (02/23/2020 4:02 AM CDT)Only the most recent of4 results within the time period is included. Pathologist Sig nature Lactate, Art 1.2 0.5 - 2.2 mmol/L [facility] Specimen Blood, Arterial Narrative Performed At Desulphurizer Operator ID - ARLENE Mccormick [facility] Performing Organization Address [facility]/Zipcode Phone Number [address] [address] CENTER Ketone, blood (02/23/2020 4:02 AM CDT)Only the most recent of2 resultswithin the time period is included. Pathologist Sig nature Ketones, Blood 0.8 (H) <0.4 mmol/L [facility] Specimen Blood Performing Organization Address City/[facility]/Zipcode Phone Number [address] [address] CENTER CBC (Hemogram only) (02/23/2020 3:25 AM CDT)Only the most recent of2 results within the time period is included. Pathologist Sig nature WBC 9.7 3.5 - 10.5 K/L [facility] RBC 3.29 (L) 4.63 - 6.08 M/L [facility] Hemoglobin 10.2 (L) 13.7 - 17.5 GM/DL [facility] Hematocrit 30.8 (L) 40.1 - 51.0 % [facility] MCV 93.6 (H) 79.0 - 92.2 fL [facility] MCH 31.0 25.7 - 32.2 pg [facility] MCHC 33.1 32.3 - 36.5 GM/DL [facility] RDW 14.5 (H) 11.6 - 14.4 % [facility] Platelets 127 (L) 150 - 450 K/CU MM [facility] MPV 10.1 9.4 - 12.4 fL [facility] nRBC 0 0 - 0 /100 WBC [facility] Specimen Blood Performing Organization Address City/[facility]/Zipcode Phone Number [facility] [address] [place] [address] CENTER Lactate dehydrogenase (LDH) (02/23/2020 3:25 AM CDT)Only the most recent of2 resultswithin the time period is included. Pathologist Sig nature LDH 201 125 - 220 U/L [facility] DICAL [place] Specimen Blood Narrative Performed At Desulphurizer Operator JORGE LUIS - ARLENE Mccormick [facility] Performing Organization Address City/[facility]/Zipcode Phone Number [address] [address] CENTER Hemoglobin A1c (02/23/2020 3:25 AM CDT)Only the most recent of2 resultswithin the time period is included. Pathologist Sig nature Hemoglobin A1C 8.8 (H) 4.3 - 6.1 % [facility] Specimen Blood Performing Organization Address City/[facility]/Zipcode Phone Number [facility] [address] [place] [address] [place] Blood gas, arterial (02/23/2020 3:25 AM CDT)Only the most recent of3 results within the time period is included. Pathologist Sig nature pH, Arterial 7.45 7.35 - 7.45 [facility] pCO2, Arterial 34 (L) 35 - 45 mmHg [facility] pO2, Arterial 140 (H) 80 - 90 mmHg [facility] O2 Sat, Arterial 98.9 (H) 96.0 - 97.0 % [facility] HCO3, Arterial 23 21 - 29 mmol/L [facility] Base Excess, Arterial -0.2 -2.0 - 3.0 [facility] mmol/L [facility] Patient Temperature 37.0 C [facility] FIO2 21.0 % [facility] Specimen Blood, Arterial Performing Organization Address [facility]/[place] Phone Number [address] [address] [place] Lactic acid, venous (02/23/2020 12:26 AM CDT) Pathologist Sig [facility] Lactate, Venous 1.65 0.50 - 2.20 mmol/L [facility] Specimen Blood - Arterial line (physical object) Narrative Performed At Desulphurizer Operator ID - DB [facility] Performing Organization Address [facility]/[place] Phone Number [address] [address] [place] Glucose-Stat Lab (02/22/2020 5:49 PM CDT)Only the most recent of2 resultswithin the time period is included. Pathologist Sig nature Glucose 292 (H) 70 - 110 mg/dL [facility] Specimen Blood, Arterial Performing Organization Address [facility] Phone Number [address] [address] [place] Creatine Kinase (CK) (02/22/2020 5:49 PM CDT) Pathologist Sig nature Total CK 152 29 - 200 U/L [facility] Specimen Blood Narrative Performed At Desulphurizer Operator ID - DB [facility] Performing Organization Address [facility] Phone Number [address] [address] [place] aPTT (02/22/2020 2:51 PM CDT)Only the most recent of4 resultswithin the time period is included. Pathologist Sig nature PTT 30.1 22.5 - 36.0 seconds [facility] Specimen Blood Performing Organization Address [facility]/[employer] Phone Number [address] [address] [place] Prothrombin time/INR (02/22/2020 2:51 PM CDT)Only the most recent of2 results within the time period is included. Pathologist Sig nature Protime 15.6 (H) 11.9 - 14.2 seconds [facility] INR 1.3 <=5.9 [facility] Specimen Blood Narrative Performed At Effective 02/04/2019: PT Reference Range [facility] Change New: 11.9-14.2 Previous: 11.7-14.7 RECOMMENDED COUMADIN/WARFARIN INR THERAPY RANGES STANDARD DOSE: 2.0-3.0 Includes: PROPHYLAXIS for venous thrombosis, systemic embolization; TREATMENT for venous thrombosis and/or pulmonary embolus. HIGH RISK: Target INR is 2.5-3.5 for patients wiht mechanical heart valves. Performing Organization Address City/[facility]/[employer] Phone Number [address] [address] CENTER Platelet count (02/22/2020 2:51 PM CDT) Pathologist Sig nature Platelets 154 150 - 450 K/CU MM [facility] Specimen Blood Performing Organization Address [facility]/[place] Phone Number [address] [address] CENTER Prepare RBC (02/22/2020 2:09 PM CDT) Pathologist Sig nature CROSSMATCH COMPATIBLE SAFETRACE TX Unit ABO O Pos SAFETRACE TX UNIT NUMBER [id number] SAFETRACE TX Status RETURNED FROM ISSUE SAFETRACE TX Blood Bank Product RED BLOOD CELLS SAFETRACE TX PRODUCT CODE [id number] SAFETRACE TX CROSSMATCH COMPATIBLE SAFETRACE TX Unit ABO O Pos SAFETRACE TX UNIT NUMBER [id number] SAFETRACE TX Status RETURNED FROM ISSUE SAFETRACE TX Blood Bank Product RED BLOOD CELLS SAFETRACE TX PRODUCT CODE [id number] SAFETRACE TX Performing Organization Address City/[facility]/[place] Phone Number SAFETRACE TX POC ACTIVATED CLOTTING TIME (02/22/2020 1:36 PM CDT)Only the most recent of7 resultswithin the time period is included. Activated Clotting 125Comment: : sec [facility] Time 74-137 seconds, [facility] Baseline: TESTED CENTER AT [address], [address]: Desulphurizer Operator/Technicia n ID = [id number] for SILVERIO REICH Specimen Blood Performing Organization Address [facility]/[employer] Phone Number [address] [phone] CENTER Potassium-Stat Lab (02/22/2020 1:16 PM CDT) Pathologist Sig nature Potassium 3.8 3.6 - 5.5 meq/L [facility] Specimen Blood, Arterial Performing Organization Address [facility]/[place] Phone Number [address] [address] CENTER Sodium Na-Stat Lab (02/22/2020 1:16 PM CDT) Pathologist Sig nature Sodium 136 136 - 145 meq/L [facility] Specimen Blood, Arterial Performing Organization Address [facility]/[employer] Phone Number [address] [address] CENTER HGB/HCT (H&H)-Stat Lab (02/22/2020 1:16 PM CDT) Pathologist Sig nature Hemoglobin 10.6 (L) 13.0 - 16.8 g/dL [facility] Hematocrit 31.0 (L) 40.0 - 50.0 % [facility] Specimen Blood, Arterial Performing Organization Address [facility]/[employer] Phone Number [address] [address] CENTER SARS-CoV2/RT-PCR (Asymptomatic ONLY) (02/21/2020 6:28 PM CDT) SARS-COV2/RT-PCR Not Detected Not Detected, [facility] Negative [facility] SARS-COV-2 [facility] PERFORMING LAB [facility] Specimen Other - Nasopharyngeal wall structure (b edgard structure) Narrative Performed At Negative results do not preclude SARS-CoV-2 [facility] infection and should not be used as [...] the Act. Fact Sheet for Healthcare Providers: https://www.logolineup/Documents/Xpert%20Xpre ss%20SARS%20CoV-2/Fact%20Sheets/302-3802%20SAR S-COV-2%20HEALTHCARE%20PROVIDERS%20FACT%20SHEE T.pdf Fact Sheet for Healthcare Patients: https://www.logolineup/Documents/Xpert%20Xpre ss%20SARS%20CoV-2/Fact%20Sheets/302-3801%20SAR S-COV-2%20PATIENT%20FACT%20SHEET.pdf Performing Laboratory: [address] [place] [address] Performing Organization Address City/State/Zipcode Phone Number [facility] [address] [place] [address] CENTER Platelet Aggregation: Function Screen (02/21/2020 6:27 PM CDT)Only the most recent of2 resultswithin the time period is included. Pathologist: SIRISHA Chen MD (electronic [facility] signature) MEDICAL CENTER Platelets 222 150 - 450 [facility] K/CU [facility] ADP 6 (L) 62 - 100 % [facility] Platelet Rich Plasma 278 200 - 300 [facility] Plt. Function Screen Pattern of [facility] present with ADP MEDICAL [facility]ENTER which may be characteristic of P2Y12 inhibitor effect. Correlation with medication history is required. Specimen Blood Narrative Performed At Platelet Function Screen results may be [facility] falsely low with platelet counts <75,000/cu mm. Desulphurizer Operator ID - [id number] Performing Organization Address [facility]/Zipcode Phone Number [address] [phone] CENTER Type and screen, automated ([facility] Lab) (02/21/2020 6:27 PM CDT)Only the most recent of2 resultswithin the time period is included. Pathologist Sig nature ABO/RH AUTOMATED O POSITIVE [facility] Ab Scrn NEGATIVE [facility] Specimen Blood Performing Organization Address City/[facility]/Zipcode Phone Number [address] [phone] PT/aPTT (02/21/2020 6:27 PM CDT) Pathologist Sig nature Protime 14.3 (H) 11.9 - 14.2 seconds [facility] INR 1.1 <=5.9 [facility] PTT 30.5 22.5 - 36.0 seconds [facility] Specimen Blood Narrative Performed At Effective 02/04/2019: PT Reference Range [facility] Change New: 11.9-14.2 Previous: 11.7-14.7 RECOMMENDED COUMADIN/WARFARIN INR THERAPY RANGES STANDARD DOSE: 2.0-3.0 Includes: PROPHYLAXIS for venous thrombosis, systemic embolization; TREATMENT for venous thrombosis and/or pulmonary embolus. HIGH RISK: Target INR is 2.5-3.5 for patients wiht mechanical heart valves. Performing Organization Address City/State/Zipcode Phone Number SIRISHA [facility] [address] [place] [address] CENTER ECG/EKG Interpretation (02/21/2020 5:30 PM CDT) Narrative Performed At Eleazar Beauchamp MD 02/21/2020 6: 58 PM ECG/EKG Interpretation Date/Time: 02/21/2020 6:57 PM Performed by: Eleazar Beauchamp MD Authorized by: Eleazar Beauchamp MD The ECG was interpreted by ED physician. This ECG was compared with previous ECG(s).Comments: Sinus rhythm with marked sin us arrhythmia, rate 80, OK 184, QRS 82, QTc 433, normal axis , no ST elevations, ST depressions, T wave inversions. PERIPHERAL VASCULAR REPORT - SCAN (12/18/2019 9:11 PM CDT) Narrative Performed At This result has an attachment that is no t available. Arterial doppler legs bilateral (12/17/2019 3:27 PM CDT) Pathologist Sig nature Ejection Fraction [facility] MKCK [facility] Specimen Impressions Performed At Right Impression [facility] 1 There is >50% stenosis in the [...] + + + + + + !Prox WEIGHER AND GRADER ! !55 ! !Biphasic ! + + + + + + !Dist WEIGHER AND GRADER ! !42 !9 !Biphasic ! + + [...] + + + + Narrative Performed At LAB - Lower Extremity Arterial Duplex [facility] Demographics Patient Name ALTHEA CARTWRIGHT Date of Study 12/17/2019 ADDISON HODGES Age 74 Visit Number [id number] Gender Male Accession Number [id number] Date of 1945 Referring Kristine Ignacio Room Number 1431 Physician Carpenter Foreman Mann Miranda [facility] Interpreting Arti Hood, Physician Procedure Type of Study: Extremities Arteries: Lower Extremities Arterial Duplex, ARTERIAL DOPPLER LEGS, BILATERAL. Indications for Study:PVD. Patient Status:Routine. Study Location:Portable. Technical Quality:Adequate visualization . - Results were reported to:@ 1:20. Risk Factors History of Disease + +--- -+ + !Diagnosis !Date!Comments ! + +--- -+ + !History/Risk Factors: ! !CAD, DM, HTN ! + +--- -+ + Procedure Note Interface, External Ris In - 12/18/2019 10:43 AM CDT PV LAB - Lower Extremity Arterial Duplex Demographics Patient Name ALTHEA CARTWRIGHT ate of Study 12/17/2019 ADDISON HODGES A [employer] 74 Visit Number [id number] G bharat Male Accession Number [id number] D ate of 1945 Referring Kristine tate Number [id number] Physician Carpenter Foreman Mann Miranda T I nterpreting Helen Terrazas MD Procedure [...] + + + + + + !Prox WEIGHER AND GRADER ! !55 ! !Biphasic ! + + + + + + !Dist WEIGHER AND GRADER ! !42 !9 !Biphasic ! + + [...] + + + + Performing Organization Address [facility] Phone Number [facility] MKCKESSON [facility] Troponin I (12/17/2019 3:43 AM CDT)Only the most recent of4 resultswithin the time period is included. Pathologist [facility] nature Troponin I 0.34 (HH) 0.00 - 0.03 ng/mL [facility] Specimen Blood Narrative Performed At Troponin I (TnI) levels must be interpreted [facility] in the context of the presenting symptoms and the clinical findings. Elevated TnI levels indicate myocardial damage, but are not specific for ischemic heart disease. Elevated TnI levels are seen in patients with other cardiac conditions (including myocarditis and congestive heart failure), and slight TnI elevations occur in patients with other conditions, including sepsis, renal failure, acidosis, acute neurological disease, and persistent tachyarrhythmia. Desulphurizer Operator ID - PIAYA L Performing Organization Address City/State/Zipcode Phone Number [facility] [address] [place] [address] [place] ECHOCARDIOGRAM REPORT - SCAN (12/16/2019 9:20 PM CDT) Narrative Performed At This result has an attachment that is no t available. 2D Echo W/Doppler(CW/PW/Color) (12/16/2019 11:29 AM CDT) Pathologist Sig nature Ejection Fraction [facility]CHO [facility] Specimen Narrative Performed At Transthoracic Echocardiography Report (T TE) [facility] Demographics Patient Name ALTHEA CARTWRIGHT Date of Study 12/16/2019 ADDISON HODGES Gender Male Visit Number [id number] Race Unknown Room Number 1431 Number Date of 1945 Referring Leonardo Carmona MD Physician Age 74 year(s) Carpenter Foreman Armando marino Technical Business Analyst Katlyn Reyes [facility] Interpreting Sadie Sandoval MD Procedure Type of [...] visualized due to foreshortening. LV endocardium is adeq uately visualized with IV ultrasound enhancing agent. The left ventricle is chamber size (by vol index) is normal (male - LVED vol - 34-74ml/m2). No evidence of LV hypertrophy. Mid to distal septum, dista l inferolateral and apex appear hypokinetic. The other LV segments have low normal contractility . Global LV systolic function lower limits of normal . LVEF by Tony's method of disk assessment is lower limits of normal (50%) . Grade 1 diastolic dysfunction (impaired relaxation and low-normal LA pres sure). Left Atrium LA is incompletely visualized, size based on linear sara urement. LA size is normal . Right Ventricle [...] root size (SInus of Valsalva diameter) is norm al . Pericardium No pericardial effusion is visualized. [...] Transthoracic Echocardiography Report (TTE) Demographics Patient Name ALTHEA CARTWRIGHT Date of Study 12/16/2019 ADDISON HODGES Gend er Male Visit Number [id number] Race Unknown Room Number 1431 Number Date of 1945 Refe rring MD Violetta Spring Age 74 year(s) Sotoo ramos Roberts [facility] Jozef Technical Business Analyst Katlyn Reyes, LESLI Inte rpretin Sadie Sandoval MD Procedure Type of Study [...] mmHg Performing Organization Address City/State/Zipcode Phone Number [facility] Carotid doppler bilateral (12/16/2019 7:51 AM CDT) [facility] nature Ejection Fraction [facility] Specimen Impressions Performed At Right Impression [facility]CHO [facility] 1. There is <50% diameter reduction (approximately [...] +----+----+-----+ +---- + + !Prox CCA !91.3!18.6!60 ! ! ! ! + +----+----+-----+ +---- + + !Dist CCA !62.7!19.9!60 ! ! ! ! + +----+----+-----+ +---- + + !Prox ICA !65 !18.2!60 ! ! ! ! + +----+----+-----+ +---- + + !Dist ICA !88.4!37.3!60 ! ! ! ! + +----+----+-----+ +---- + + !Prox ECA !132 !19.7!52 ! ! ! ! + +----+----+-----+ +---- + + !Vertebral !51.8!17.5!60 ! ! ! ! + +----+----+-----+ +---- + + !Prox Subclavian!102 !0 !60 ! ! ! ! + +----+----+-----+ +---- + + - There is antegrade vertebral flow noted on the right side. - Additional Measurements:ICAPSV/CCAPSV 1.41.ICAEDV/CCAEDV 2.01. Carotid Left Measurements + +----+----+-----+ +---- + + !Location !PSV !EDV !Angle!%Stenosis 2D!%Stenosis Doppler!Tortuosity ! + +----+----+-----+ +---- + + !Prox CCA !70.2!16.2!60 ! ! ! ! + +----+----+-----+ +---- + + !Dist CCA !49.7!18.6!60 ! ! ! ! + +----+----+-----+ +---- + + !Prox ICA !99.4!37.9!60 ! ! ! ! + +----+----+-----+ +---- + + !Dist ICA !104 !41.6!60 ! ! ! ! + +----+----+-----+ +---- + + !Vertebral !62.7!23 !60 ! ! ! ! + +----+----+-----+ +---- + + !Prox Subclavian!171 !0 !60 ! ! ! ! + +----+----+-----+ +---- + + - There is antegrade vertebral flow noted on the left side. - Additional Measurements:ICAPSV/CCAPSV 2.09.ICAEDV/CCAEDV 2.57. Narrative Performed At LAB - Carotid Duplex Study [facility] Demographics Patient Name ALTHEA CARTWRIGHT Date of Study 12/16/2019 ADDISON HODGES Age 74 Visit Number [id number] Gender Male Accession Number [id number] Date of 1945 Referring [facility] Room Number 1431 Physician Carpenter Foreman Joycelyn Mcintosh T Interpreting Arti Hood, Physician Procedure Type of Study: Cerebral: Carotid, CAROTID DOPPLER, CHARLEE ATERAL. Indications for Study:Preop. Patient Status:Routine. Study Location:Portable. Technical Quality:Technically Difficult. Risk Factors History of Disease + +--- -+ + !Diagnosis !Date!Comments ! + +--- -+ + !History/Risk Factors: ! !CAD, DM, HTN ! + +--- -+ + Procedure Note Interface, External Ris In - 12/16/2019 8:21 AM CDT PV LAB - Carotid Duplex Study Demographics Patient Name ALTHEA CARTWRIGHT ate of Study 12/16/2019 ADDISON HODGES A [employer] 74 Visit Number [id number] G bharat Male Accession Number [id number] D ate of 1945 Referring Kristine farley Number [id number] Physician Carpenter Foreman Joycelyn Mcintosh T I nterpreting Helen Terrazas [...] Measurements:ICAPSV/CCAPS V 2.09.ICAEDV/CCAEDV 2.57. Performing Organization Address City/[facility]/[employer] Phone Number [facility] Lipid panel (12/16/2019 4:09 AM CDT) Pathologist Sig nature Triglycerides 133 mg/dL [facility] Cholesterol 101 mg/dL [facility] [place] HDL 26 mg/dL [facility] [place] LDL Calculated 48 mg/dL [facility] Specimen Blood Narrative Performed At Triglyceride Reference Range: [facility] Low Risk <150 Borderline 150-199 High Risk 200-499 Very High Risk >=500 Cholesterol Reference Range: Low Risk <200 Borderline 200-239 High Risk >240 HDL Cholesterol Reference Range: Low Risk >=60 High Risk <40 LDL Cholesterol Reference Range: Optimal <100 Near Optimal 100-129 Borderline 130-159 High 160-189 Very High >=190 Desulphurizer Operator JORGE LUIS Cho Performing Organization Address [facility]/Zipcode Phone Number [address] [address] CENTER tyrese KISER (12/15/2019 11:01 PM CDT) Pathologist Sig nature ABO Grouping O [facility] Rh Factor POS [facility] Specimen Blood Performing Organization Address [facility]/Zipcode Phone Number [address] [address] Comprehensive metabolic panel (12/15/2019 6:25 PM CDT) Protein, Total 7.5 6.0 - 8.3 [facility] gm/dL [facility] Albumin 4.2 3.5 - 5.0 [facility] g/dL [facility] Alkaline 62 40 - 150 U/L [facility] Phosphatase [facility] Total Bilirubin 0.7 0.2 - 1.2 [facility] mg/dL [facility] Sodium 137 136 - 145 [facility] meq/L [facility] Potassium 3.6 3.5 - 5.1 [facility] meq/L [facility] Chloride 99 98 - 107 [facility] meq/L [facility] CO2 26 22 - 29 meq/L [facility] BUN 13 7 - 21 mg/dL [facility] Creatinine 0.83 0.57 - 1.25 [facility] mg/dL [facility] Glucose 177 (H) 70 - 105 [facility] mg/dL [facility] Calcium 10.0 8.4 - 10.2 [facility] mg/dL [facility] AST 44 (H) 5 - 34 U/L [facility] ALT 27 6 - 55 U/L [facility] EGFR 90Comment: mL/min/1.73 [facility]' ESTIMATED GFR IS sq [facility] NOT ACCURATE MEDICAL CENTER CREATININE CLEARANCE IN PREDICTING GLOMERULAR FILTRATION RATE. ESTIMATED GFR IS NOT APPLICABLE FOR DIALYSIS PATIENTS. Specimen Blood Narrative Performed At Desulphurizer Operator ID - BS [facility] Performing Organization Address City/State/Zipcode Phone Number [facility] [address] [place] [address] CENTER after 08/30/2019 Insurance Payer Benefit Plan / Subscriber ID Effective Dates Phone Addre ss Type Group MEDICARE MEDICARE A B [id number] 2009-Presen Medicare t HUMANA - MGD [employer] INDEMNITY [id number] 2016-Present PPO CARE Advance Directives For more information, please contact: [phone] Code Status Date Activated Date Inactivated Comments Full Code 02/21/2020 5:53 PM 02/24/2020 4:11 PM This code status was determined by: Patient Full Code 12/15/2019 5:55 PM 12/17/2019 3:12 PM This code status was determined by: Patient
--- OUTSIDE RECORDS SUMMARY | 2020-08-30 13:55 | XMS REPORT | Continuity of Care Document ---
:1945 Author Organization [facility] t Address [address] [place] [address] Care Team Providers Name Role Phone Beryl Molina MD Attending Clinician BERYL MOLINA Attending Clinician Unavailable Meet Lo MD Attending Clinician Rodney Roque RN Attending Clinician Unavailable QUYNH Attending Clinician Unavailable Quynh WESTFALL Attending Clinician Vivian Verde MD Attending Clinician Claribel WESTFALL Attending Clinician Serg Strong DO Attending Clinician Junior Hunter MD Attending Clinician Sandee Molina MD Attending Clinician Slava Gardner MD Attending Clinician SLAVA GARDNER Attending Clinician Unavailable VIVIAN VERDE Admitting Clinician Unavailable SLAVA GARDNER Admitting Clinician Unavailable Payers Payer Name Policy Type Policy Effective Date Expiration Date Sour ce Number MEDICAREMEDICARE A [id number] 2009 SIRISHA Daigle [id number] 2008- 00:00:00 - Medical PresentMedicare Center HUMANA - MGD [id number] 2016 SIRISHA Solis [facility] 00:00:00 - Medical [id number]/ Ce nter 2016-PresentPPO Problems Condition Condition Condition Status Onset Resolution Last Treating Co mments Source Name Details Category Date Date Treatment Clinician Date Coronary Coronary Disease [facility] disease disease [facility]: Medical involving involving [facility] heart without without angina angina pectoris, pectoris, unspecifie unspecifie d vessel d vessel or lesion or lesion type type CAD, CAD, Disease Active [facility] multiple multiple 4-07 [facility] - vessel vessel 00:00: Medical [address] [place] [address] Acute Acute Disease Active [facility] respirator respirator kes - y y Medical insufficie insufficie Ce nter ncy ncy Acute Acute Disease Active [facility] blood loss blood loss [facility] anemia anemia [facility] Hyperglyce Hyperglyce Disease Active C HI [facility] Allergies, Adverse Reactions, Alerts This patient has no known allergies or adverse reactions. Family History Family Member Diagnosis Comments Start Date Stop Date Source Natural father Heart disease [facility] Natural mother Heart disease [facility] Social History Social Habit Start Date Stop Date Quantity Comments Source Sex Assigned At [facility] Tobacco use and 2020-06-02 2020-06-02 Never used [facility] - exposure 00:00:00 00:00:[address] [facility] Alcohol intake 2020-06-02 2020-06-02 Current drinker SIRISHA Daigle - 00:00:00 00:00:[address] of [address] [facility] (finding) History of 1978-12[birth year]14 Current smoker [facility] - tobacco use 00:00:00 [facility] Cent[facility] Smoking Status Start Date Stop Date Source Former smoker 2020-06-02 00:00:00 2020-06-02 00:00:00 [facility] Medications Ordered Filled Start Stop Current Ordering Indication Dosage Frequency Signature Comments Components Source Medication Medication Date Date Medication? Clinician (SIG) Name Name nitroglycer Yes acute .4mg Place 0.[address] [facility] in 9-24 episode of mg under [facility] - (NITROSTAT) 12:33: anginal the tongue Medical 0.4 MG SL 42 pain every 5 Center tablet (five) minutes as needed for Chest pain Put 1 pill under tongue every 5min as needed for chest pain.No more than 3 doses in 15min.Call 911 if pain is unrelieved 5min after 1st dose . liraglutide 2020-0 Yes type 2 1.8mg QD Inject 1.[address] 0.6 mg/0.1 9-24 diabetes mg [facility] - mL (18 mg/3 12:33: mellitus subcutaneo Medical mL) PnIj 42 usly daily Kim Zambrano rosuvastati 2019-0 Yes atheroscler 20mg QD Take [address] n (CRESTOR) 9-24 otic by mouth Luke s - 40 MG 12:33: cardiovascu daily . Me dical tablet 42 [facility] disease Center metFORMIN 2019-0 Yes type 2 1000mg Q.5D Take 1,[address] (GLUCOPHAGE 9-24 diabetes mg by Elvira es - -XR) 500 MG 12:33: mellitus mouth 2 Medical 24 hr 42 (two) Center tablet times daily. lansoprazol 0 Yes gastroesoph 30mg QD Take [address] [facility] e 9-24 ageal by mouth [facility] - (PREVACID) 12:33: reflux nightly. M edical 30 MG 42 disease Center capsule insulin 2019-0 Yes type 2 100U QD Inject [address] glargine 9-24 diabetes Units [facility] - (LANTUS) 12:33: mellitus subcutaneo Medical 100 unit/mL 42 usly every Ce nter injection morning Use as directed . benazepriL 0 Yes hypertensio 20mg QD Take [address] (LOTENSIN) 9-24 n by mouth [facility] - 20 MG 12:33: daily. Medical tablet 42 [place] empaglifloz 2019-0 Yes 25mg QD Take [address] in 9-24 by mouth [facility] - (JARDIANCE) 12:33: daily. Medi radha 25 mg 42 [place] tablet abatacept 2019-0 Yes Q28D Inject [facility] (ORENCIA) 9-24 intravenou Luke s - infusion 12:33: sly every Medi radha 42 28 days. [place] tamsulosin 2019-0 Yes .4mg QD Take 0.[address] (FLOMAX) 9-13 mg by [facility] - 0.4 mg Cap 00:00: mouth Medica l 24 hr 00 daily. [place] capsule gabapentin 2019-0 2020- No neuropathic 600mg Take [address] (NEURONTIN) 7-29 07-29 pain mg by [facility] - 300 MG 11:14: 00:00 mouth 3 Medical capsule 27 :00 (three) Center times daily as needed . aspirin 81 2019- No 162mg QD Take [address] MG chewable 7-29 07-29 mg by [facility] - tablet 11:14: 00:00 mouth Medical 27 :00 daily. Center furosemide 2020- No edema 40mg Q.5D Take [address] (LASIX) 40 02-23-17 by mouth 2 Heather kes - MG tablet 10:08: 00:00 (two) Medica l 38 :00 times Center daily. acetaminoph 2019- No 1{tbl} Take [address] en-codeine 02-23- tablet by Elvira law - (TYLENOL 10:08: 00:00 mouth Medical #3) 300-30 38 :00 every 4 Center mg per (four) tablet hours as needed for Pain. metoprolol No 50mg Q.5D Take [address] tartrate 02-23- tablet (50 Luke s - (LOPRESSOR) 00:00: 23:59 mg total) Medical 50 MG 00 :00 by mouth 2 Center tablet (two) times daily. apixaban 2019- No 5mg Q.5D Take [address] (ELIQUIS) 5 - 07-29 tablet (5 Heather kes - mg [...] 200mg Take [address] (ADVIL,MOTR 6-14 06-14 mg by Pilo - IN) 200 MG 18:04: 18:04 mouth Medic al tablet 49 :46 every 6 Center (six) hours as needed for Pain. clopidogreL No 75mg QD Take [address] (PLAVIX) 75 4-10 04-10 tablet (75 L ukes - mg tablet 00:00: 23:59 mg total) Me dical 00 :00 by mouth Center daily. isosorbide No 30mg QD Take [address] mononitrate 12-17- tablet (30 L ukes - (IMDUR) 30 00:00: 00:00 mg total) M edical MG 24 hr 00 :00 by mouth Center tablet daily. metoprolol hypertensio 50mg Q.5D Take [address] tartrate 12-16 n by mouth 2 Luke s - (LOPRESSOR) 11:17: 00:00 (two) Medi radha 50 MG 20 :00 times Center tablet daily. ranolazine No 500mg Q.5D Take [address] (RANEXA) 12-16 tablet [facility]ukes - 500 MG 12 00:00: 23:59 (500 mg Medi radha hr tablet 00 :00 total) by Cente r mouth 2 (two) times daily. metoprolol hypertensio 75mg Q.5D Take [address] tartrate 75 12-16 n by mouth 2 L ukes - mg Tab 00:00: 00:00 (two) Medical 00 :00 times Center daily. Vital Signs Vital Name Observation Time Observation Value Comments Source Systolic blood 2020-06-02 12:35:00 165 mm[Hg] [facility] Diastolic blood 2020-06-02 12:35:00 78 mm[Hg] [facility] Heart rate 2020-06-02 12:35:00 64 /min [facility] Body temperature 2020-06-02 12:35:00 36.94 [place] [facility] Respiratory rate 2020-06-02 12:35:00 16 /min [facility] Body weight 2020-06-02 12:35:00 91.627 kg [facility] BMI 2020-06-02 12:35:00 28.28 kg/m2 [facility] Oxygen saturation in 2020-06-02 12:35:00 98 /min [facility] Arterial blood by Medical Ce nter Pulse oximetry Body height 2020-03-08 10:22:00 180 cm [facility] Procedures Procedure Date / Time Performing Clinician Source Performed CT/CTA AAA AND RUNOFF 2020-08-10 08:25:00 Kristine Yifan [facility] POCT-CREATININE 2020-08-10 08:16:00 Kristine Yifan [facility] VASCULAR DIAGRAM -SCAN 2020-03-02 15:24:20 Provider, [facility] RHYTHM STRIP - SCAN 2020-02-25 14:01:41 Provider, [facility] CARDIAC CATH REPORT - SCAN 2020-02-25 14:01:37 Provider, [facility] RHYTHM STRIP - SCAN 2020-02-24 15:51:32 Provider, [facility] REPORT OF PROCEDURE - 2020-02-24 13:51:02 Provider, [facility] ENDOSCOPY [facility] POCT-GLUCOSE METER 2020-02-24 08:03:00 Andrea Verde [facility] MAGNESIUM 2020-02-24 05:25:00 Malvin Aguilar [facility] PHOSPHORUS 2020-02-24 05:25:00 Lauren [facility] BASIC METABOLIC PANEL (7) 2020-02-24 05:25:00 Malvin Aguilar [facility] CBC W/PLT COUNT & AUTO 2020-02-24 05:25:[address] [facility] POCT-GLUCOSE METER 2020-02-23 21:23:00 [facility] 2020-02-23 18:13:14 Provider, [facility] POCT-GLUCOSE METER 2020-02-23 16:53:00 Andrea Verde [facility] POCT-GLUCOSE METER 2020-02-23 11:17:00 Andrea Verde deepa [facility] POCT-GLUCOSE METER 2020-02-23 10:05:00 Joudah, Andrea [facility] ECG 12-LEAD 2020-02-23 09:10:53 Unknown, Hl7 Doctor [facility] ECG 12-LEAD 2020-02-23 09:10:06 Unknown, Hl7 [facility] POCT-GLUCOSE METER 2020-02-23 07:59:00 Andrea Verde [facility] BASIC METABOLIC PANEL (7) 2020-02-23 07:57:00 Malvin Aguilar [facility] MAGNESIUM 2020-02-23 07:57:00 Malvin Aguilar [facility] PHOSPHORUS 2020-02-23 07:57:00 Mlavin Aguilar [facility] POCT-GLUCOSE METER 2020-02-23 07:29:00 Jermaine Andrea [facility] XR CHEST 1 VIEW 2020-02-23 07:07:[address] [facility] es - PORTABLE/BEDSIDE [facility] POCT-GLUCOSE METER 2020-02-23 06:16:00 Jermaine Andrea [facility] POCT-GLUCOSE METER 2020-02-23 04:55:00 Jermaine Andrea [facility] POCT-GLUCOSE METER 2020-02-23 04:08:00 Alineumair [facility] KETONE, BLOOD 2020-02-23 04:02:00 Mario [facility] LACTIC ACID, ARTERIAL 2020-02-23 04:02:00 Shakila Martin [facility] MAGNESIUM 2020-02-23 03:25:00 [facility] ([facility] ONLY[facility] 2020-02-23 03:25:00 Daryn Moise [facility] LACTATE DEHYDROGENASE 2020-02-23 03:25:00 Daryn Moise [facility] ([facility]) [facility] BASIC METABOLIC PANEL (7) 2020-02-23 03:25:00 Malvin Aguilar [facility] HEMOGLOBIN A1C 2020-02-23 03:25:00 Shakila Martin [facility] BLOOD GAS, ARTERIAL 2020-02-23 03:25:00 Shakila Martin [facility] POCT-GLUCOSE METER 2020-02-23 03:19:00 Andrea Verde [facility] POCT-GLUCOSE METER 2020-02-23 02:05:00 Andrea Verde [facility] POCT-GLUCOSE METER 2020-02-23 01:13:00 Andrea Verde [facility] MAGNESIUM 2020-02-23 00:26:00 Lauren [facility] PHOSPHORUS 2020-02-23 00:26:00 Lauren [facility] LACTIC ACID, VENOUS 2020-02-23 00:26:00 Shakila Martin [facility] BASIC METABOLIC PANEL (7) 2020-02-23 00:26:00 Shakila Martin [facility] LACTATE DEHYDROGENASE 2020-02-23 00:26:[address] [facility] POCT-GLUCOSE METER 2020-02-23 00:11:00 Andrea Verde [facility] BASIC METABOLIC PANEL (7) 2020-02-22 21:23:00 Shakila Martin [facility] LACTIC ACID, ARTERIAL 2020-02-22 21:23:00 Shakila Martin [facility] BLOOD GAS, ARTERIAL 2020-02-22 21:23:00 Shakila Martin [facility] KETONE, BLOOD 2020-02-22 21:23:00 Shakila Martin [facility] POCT-GLUCOSE METER 2020-02-22 21:00:00 Andrea Verde [facility] POCT-GLUCOSE METER 2020-02-22 18:51:00 [facility] REPORT 2020-02-22 18:00:07 Manasa Daniels [facility] GLUCOSE-STAT LAB 2020-02-22 17:49:[address] [facility] BASIC METABOLIC PANEL (7) 2020-02-22 17:49:00 Malvin Aguilar [facility] MAGNESIUM 2020-02-22 17:49:00 Malvin Aguilar [facility] PHOSPHORUS 2020-02-22 17:49:00 Malvin Aguilar [facility] LACTIC ACID, ARTERIAL 2020-02-22 17:49:00 Lauren [facility] CREATINE KINASE (CK) 2020-02-22 17:49:00 Candida Vela I [facility] POCT-GLUCOSE METER 2020-02-22 17:22:00 [facility]de [facility] BASIC METABOLIC PANEL (7) 2020-02-22 14:51:00 Malvin Aguilar [facility] LACTIC ACID, ARTERIAL 2020-02-22 14:51:00 Malvin Aguilar [facility] PROTHROMBIN TIME/INR 2020-02-22 14:51:00 Lauren [facility] APTT 2020-02-22 14:51:00 Lauren [facility] CBC W/PLT COUNT & AUTO 2020-02-22 14:51:[address] [facility] PREPARE RBC 2020-02-22 14:09:[address] [facility] POCT-ACT 2020-02-22 13:36:00 Andrea Verde [facility] BLOOD GAS, ARTERIAL 2020-02-22 13:16:09 DanieluKye [facility] SODIUM NA-STAT LAB 2020-02-22 13:16:09 EronduKye [facility] POTASSIUM-STAT LAB 2020-02-22 13:16:09 EronduKye U [facility] GLUCOSE-STAT LAB 2020-02-22 13:16:09 Kye Dumont [facility] HGB/HCT (H&H) - STAT LAB 2020-02-22 13:16:09 Kye Dumont C [facility] REMOVAL,IMPELLA PUMP 2020-02-22 12:15:00 Maycol Lo [facility] POCT-ACT 2020-02-22 11:44:00 AdrianaAndrea [facility] POCT-ACT 2020-02-22 11:29:00 AdrianaAndrea [facility] POCT-ACT 2020-02-22 11:00:00 AdrianaAndrea [facility] POCT-ACT 2020-02-22 10:18:00 AdrianaAndrea [facility] POCT-ACT 2020-02-22 09:37:00 AdrianaAndrea [facility] POCT-ACT 2020-02-22 09:16:00 Adriana Andrea [facility] PCI W/ IMPELLA MCR - IP 2020-02-22 07:48:00 Leonardo Molina [facility] - PROC ONLY [facility] Center ECG 12-LEAD 2020-02-21 18:39:13 Unknown, Hl7 Doctor [facility] SARS-COV2/RT-PCR ([facility] & 2020-02-21 18:28:00 Leonardo Molina [facility] - REF LABS) [facility] BASIC METABOLIC PANEL (7) 2020-02-21 18:27:00 Leonardo Molina [facility] PT/APTT 2020-02-21 18:27:00 Leonardo Molina [facility] MAGNESIUM 2020-02-21 18:27:00 [facility] PLATELET AGGREGATION: 2020-02-21 18:27:00 Leonardo Molina [facility] - FUNCTION SCREEN Medical Center TYPE AND SCREEN, AUTOMATED 2020-02-21 18:27:00 Leonardo Molina [facility] CBC W/PLT COUNT & AUTO 2020-02-21 18:27:00 Kristine Remingtondimitri Ignacio [facility] ED ECG INTERPRETATION 2020-02-21 17:30:07 Eleazar Beauchamp [facility] PERIPHERAL VASCULAR REPORT 2019-12-18 21:11:44 Provider, [facility] RHYTHM STRIP - SCAN 2019-12-18 10:10:25 Provider, [facility] TRANSFUSION SERVICE REPORT 2019-12-17 17:50:31 Provider, [facility] ARTERIAL DOPPLER LEGS 2019-12-17 15:27:[address] [facility] POCT-GLUCOSE METER 2019-12-17 07:58:00 Yasmin [facility] BASIC METABOLIC PANEL (7) 2019-12-17 03:43:00 Yasmin, Suzie Daniel [facility] CBC (HEMOGRAM ONLY) 2019-12-17 03:43:00 Yasmin, [facility] TROPONIN I 2019-12-17 03:43:00 Yasmin, [facility] TROPONIN I 2019-12-16 21:36:00 Yasmin, [facility] ECHOCARDIOGRAM REPORT - 2019-12-16 21:20:50 Provider, Default [facility] POCT-GLUCOSE METER 2019-12-16 21:14:00 Yasmin, [facility] TRANSFUSION SERVICE REPORT 2019-12-16 17:50:42 Provider, Default [facility] APTT 2019-12-16 15:56:00 Yasmin, [facility] TROPONIN I 2019-12-16 15:56:00 Yasmin, [facility] POCT-GLUCOSE METER 2019-12-16 12:17:00 Yasmin, [facility] 2D ECHO W/ DOPPLER 2019-12-16 11:29:[address] [facility] (CW/PW/COLOR) [facility] APTT 2019-12-16 10:13:00 Yasmin, Suzie Pedersen [facility] XR CHEST 1 VIEW 2019-12-16 09:56:00 [facility]min[facility] Center TROPONIN I 2019-12-16 09:29:00 Yasmin, Suzie Sancheza [facility] POCT-GLUCOSE METER 2019-12-16 08:00:00 [facility] DOPPL[facility] BILATERAL 2019-12-16 07:51:00 Kristine Remingtondimitri Ignacio I [facility] BASIC METABOLIC PANEL (7) 2019-12-16 04:09:00 Yasmin, Suzie Bharathirobel rodney [facility] LIPID PANEL 2019-12-16 04:09:00 Yasmin, Suzie [facility] HEMOGLOBIN A1C 2019-12-16 04:09:00 [facility] 2019-12-15 23:01:00 Adeline Reddy [facility] TYPE AND SCREEN, AUTOMATED 2019-12-15 22:40:00 Yasmin, Suzie Jayashreesandra lerma [facility] POCT-GLUCOSE METER 2019-12-15 21:34:00 Yasmin, Suziesa Pedersen [facility] PLATELET AGGREGATION: 2019-12-15 18:25:00 Maycol Lo [facility] - FUNCTION SCREEN [facility] COMPREHENSIVE METABOLIC 2019-12-15 18:25:00 [facility] 2019-12-15 18:25:00 [facility] PROT[facility] TIME/INR 2019-12-15 18:25:00 Yasmin, [facility] ECG 12-LEAD 2019-12-15 18:12:29 Unknown, Hl7 Doctor [facility] XR CHEST 1 VIEW 2019-12-15 17:59:00 Suzie Gardner [facility] - PORTABLE/BEDSIDE Medical Center POCT-GLUCOSE METER 2019-12-15 15:58:00 YasminSuzie [facility] Plan of Care Planned Activity Planned Date Details Comments Source Future Scheduled 2020-05-10 [facility]INE [facility]00 (#1) [code = [facility] Center INFLUENZA VACCINE (#1)] Future Scheduled 2019-09-09 DEPRESSION SCREENING [facility] - Test 00:00:00 (12+) [code = [facility] Center DEPRESSION SCREENING (12+)] Future Scheduled 2010-07-11 MEDICARE ANNUAL [facility] - Test 00:00:00 WELLNESS (YEAR 2 or [facility] Center FIRST YEAR if no IPPE) [code = MEDICARE ANNUAL WELLNESS (YEAR 2 or FIRST YEAR if no IPPE)] Encounters Start End Encounter Admission Attending Care Care Encounter Source Date/Time Date/Time Type Type Clinicians Facility Department ID 2020-07-05 2020-07-05 Outpatient [facility] [id number] [facility]00 00:00:00 [facility] ent Clinics 2020-06-06 2020-06-06 Outpatient [facility] [id number] [facility]00 [facility] ent Clinics Results Test Description Test Time Test Comments Results Result Sourc e Comments CT, CTA AAA, W/ 2020-08-12 CHARLEE.EXT.RUNOFF 16:25:00 [facility] 1945 Sex: M *Addendum BeginsREPORT STATUS:A Addendum: I agree with the previously described non vascular findings. Generalized fatty infiltration of the liver is apparent. There are numerous small bilateral renal cysts evident. The wall of the urinary bladder is diffusely thickened. The urinary bladder is not distended. Chronic degenerative changes are present in the lower lumbar spine. Chronic degenerative arthritis of the right hip. Signed: Kenny Arvizu MDReport Verified Date/Time: 08/12/2020 16:25:56 Reading Location: [facility] Radiology Reading RoomAddendum EndsFINAL REPORT CTA AAA with bilateral external runoff - 08/10/2020 8:39 AM. Comparison: None available History: 75 years old Male with acute limb ischemia and suspected severe peripheral vascular disease. Evaluated for further treatment options. Indication: Clinically suspected peripheral vascular disease. This study is performed in an attempt to avoid an invasive procedure. Technique: Multi-detector CT technology was employed ([place] CT 660 scanner). Spiral acquisition before and during intravenous contrast administration. Images were obtained before and during the dynamic passage of intravenous contrast material. Multi-planar 3-D volume-rendering reconstruction was performed using an independent workstation interactively by the interpreting physician as well as the 3-D specialist for optimal visualization of the abdominal aorta, pelvic arteries as well as its branches, along with bilateral lower extremity vasculature. Please refer to the contrast sheet scanned in the EPIC system for the amount and route of contrast given. This exam was performed according to our departmental dose-optimization programme, which includes automated exposure control, adjustment of the mA and/or kV according to patient size and/or use of iterative reconstruction technique. Dose modulation, iterative reconstruction, and/or weight based adjustment of the mA/kV was utilized to reduce the radiation dose to as low as reasonably achievable. RESULT: Potential study limitations: None. LIMITED CHEST:The visualized chest wall is unremarkable. The visualized lungs reveal no acute abnormalities. VASCULAR WITH ADVANCED 3-D OFFLINE POST-PROCESSING:The abdominal aorta: Normal in course and caliber with mild to moderate calcification predominantly involving the infrarenal segment of the abdominal aorta The celiac artery, SMA, and AVANI are patent. The bilateral single renal arteries are patent. There is no acute aortic pathology, such as dissection, intramural hematoma, or contained rupture. Mail Examiner dimensions of the abdominal aorta are as follows: *2.1 cm at the supra-mesenteric segment*2.0 cm at the mesenteric segment*1.9 cm at the renal segment*1.4 cm at the infrarenal segment*1.4 cm at the aortic bifurcation The right common iliac artery has posteriorly predominant moderate calcific atherosclerotic changes with a minimal luminal diameter measuring 6.8 x 8.8 mm. The right external iliac artery is normal in course caliber and contour with minimal calcific atherosclerotic changes with a minimal luminal diameter measuring 7.6 x 8.0 mm. The right common femoral artery has severe protruding calcification involving the distal segment before the bifurcation leading to at least moderate luminal stenosis with a minimal luminal diameter measuring 2.8 x 3.3 mm. The left common iliac artery has mild to moderate calcification with a minimal luminal diameter measuring 6.1 x 7.6 mm. The left external iliac artery is patent with mild to moderate calcific atherosclerotic changes. The distal segment of the left common femoral artery has severe protruding calcification just before its bifurcation leading to moderate to severe luminal stenosis with minimal luminal diameter measuring 2.1 x 3.5 mm. The Inflow vessels:The left superficial femoral appears to be patent with near circumferential calcification throughout the course, and of the luminal diameter is limited by the blooming artifact from the calcification. However, there is at least mild to moderate luminal stenosis at its mid segment with a protruding calcification. The left popliteal artery is patent with no circumferential calcification though no significant luminal stenosis. The left tibioperoneal trunk is widely patent. The left anterior tibial artery has near circumferential calcification limiting the assessment of luminal patency however at its distal segment it continues as faintly filled dorsalis pedis artery. The left peroneal artery is normal size with no significant luminal stenosis and terminates just above the ankle. The left posterior tibial artery is patent at its proximal and mid segments and continuous as a faintly filled posterior plantar branches. The right superficial femoral artery has diffuse near circumferential calcification. At its mid segment the right SFA has severe protruding calcification with at least moderate to severe luminal stenosis with another similar protruding calcification at its distal segment with again a moderate luminal stenosis noted. The right popliteal artery is severely calcified with moderate to severe luminal stenosis at its mid segment. The distal segment of the popliteal artery is normal caliber with minimal calcification and no evidence of luminal stenosis. The right peroneal trunk is widely patent. The right anterior tibial artery has diffuse calcification though widely patent and continues at its distal segment has normal caliber dorsalis pedis artery. The right peroneal artery is normal size with diffuse luminal ligamentous and terminates just above the ankle. The right posterior tibial artery has diffuse calcific atherosclerotic changes however at its distal segment it continues as a normal caliber posterior plantar branches. ABDOMEN-PELVIS:In the abdomen, the liver and spleen appears unremarkable. No abnormal enhancing structure is identified. The gallbladder and pancreas appears grossly normal. The adrenal glands are not enlarged. The kidneys are normal in size and shape. No hydronephrosis or perirenal fluid collection is identified. There are simple appearing renal cysts at the upper pole of the left and lower pole of the right kidneys, respectively with the largest measuring 1.6 cm. Bowel is not well assessed by CT angiography as enteric contrast is not given. No obvious bowel dilation is seen. There is no significant retroperitoneal adenopathy. No free fluid or free air is identified. The visualized pelvic organs appear unremarkable. BONES:Degenerative changes involving the lumbar spine. Impression: 1. The abdominal aorta is normal in course and caliber with mild to moderate near circumferential calcification prominently involving the infrarenal segment of the abdominal aorta. No acute abnormalities identified. The right common femoral artery has severe protruding calcification involving the distal segment before the bifurcation leading to at least moderate luminal stenosis with a minimal luminal diameter measuring 2.8 x 3.3 mm. 2. The distal segment of the left common femoral artery has severe protruding calcification just before its bifurcation leading to moderate to severe luminal stenosis with minimal luminal diameter measuring 2.1 x 3.5 mm. 3. Mid right SFA has severe protruding calcification with at least moderate to severe luminal stenosis with another similar protruding calcification at its distal segment with again a moderate luminal stenosis noted. 4. The right popliteal artery is severely calcified with moderate to severe luminal stenosis at its mid segment. An addendum will be dictated regarding the non-vascular findings by the Personal Banking Officer Radiologists. Signed: Buck Sears Verified Date/Time: 08/10/2020 14:41:04 Reading Location: [facility] P027 CT Reading Room AAA and 2020-08-10 Interface, External [facility] Runoff 14:41:00 Ris In - 08/12/2020 - Med ical 4:28 PM CSTAddendum Kim dykes BeginsREPORT STATUS:A Addendum: I agree with the previously described non vascular findings. Generalized fatty infiltration of the liver is apparent. There are numerous small bilateral renal cysts evident. The wall of the urinary bladder is diffusely thickened. The urinary bladder is not distended. Chronic degenerative changes are present in the lower lumbar spine. Chronic degenerative arthritis of the right hip. Signed: Kenny Arvizu MDReport Verified Date/Time: 08/12/2020 16:25:56 Reading Location: [facility] Radiology Reading RoomAddendum EndsFINAL REPORT CTA AAA with bilateral external runoff - 08/10/2020 8:39 AM. Comparison: None available History: 75 years old Male with acute limb ischemia and suspected severe peripheral vascular disease. Evaluated for further treatment options. Indication: Clinically suspected peripheral vascular disease. This study is performed in an attempt to avoid an invasive procedure. Technique: Multi-detector CT technology was employed ([place] CT 660 scanner). Spiral acquisition before and during intravenous contrast administration. Images were obtained before and during the dynamic passage of intravenous contrast material. Multi-planar 3-D volume-rendering reconstruction was performed using an independent workstation interactively by the interpreting physician as well as the 3-D specialist for optimal visualization of the abdominal aorta, pelvic arteries as well as its branches, along with bilateral lower extremity vasculature. Please refer to the contrast sheet scanned in the EPIC system for the amount and route of contrast given. This exam was performed according to our departmental dose-optimization programme, which includes automated exposure control, adjustment of the mA and/or kV according to patient size and/or use of iterative reconstruction technique. Dose modulation, iterative reconstruction, and/or weight based adjustment of the mA/kV was utilized to reduce the radiation dose to as low as reasonably achievable. RESULT: Potential study limitations: None. LIMITED CHEST:The visualized chest wall is unremarkable. The visualized lungs reveal no acute abnormalities. VASCULAR WITH ADVANCED 3-D OFFLINE POST-PROCESSING:The abdominal aorta: Normal in course and caliber with mild to moderate calcification predominantly involving the infrarenal segment of the abdominal aorta The celiac artery, SMA, and AVANI are patent. The bilateral single renal arteries are patent. There is no acute aortic pathology, such as dissection, intramural hematoma, or contained rupture. Mail Examiner dimensions of the abdominal aorta are as follows: *2.1 cm at the supra-mesenteric segment*2.0 cm at the mesenteric segment*1.9 cm at the renal segment*1.4 cm at the infrarenal segment*1.4 cm at the aortic bifurcation The right common iliac artery has posteriorly predominant moderate calcific atherosclerotic changes with a minimal luminal diameter measuring 6.8 x 8.8 mm. The right external iliac artery is normal in course caliber and contour with minimal calcific atherosclerotic changes with a minimal luminal diameter measuring 7.6 x 8.0 mm. The right common femoral artery has severe protruding calcification involving the distal segment before the bifurcation leading to at least moderate luminal stenosis with a minimal luminal diameter measuring 2.8 x 3.3 mm. The left common iliac artery has mild to moderate calcification with a minimal luminal diameter measuring 6.1 x 7.6 mm. The left external iliac artery is patent with mild to moderate calcific atherosclerotic changes. The distal segment of the left common femoral artery has severe protruding calcification just before its bifurcation leading to moderate to severe luminal stenosis with minimal luminal diameter measuring 2.1 x 3.5 mm. The Inflow vessels:The left superficial femoral appears to be patent with near circumferential calcification throughout the course, and of the luminal diameter is limited by the blooming artifact from the calcification. However, there is at least mild to moderate luminal stenosis at its mid segment with a protruding calcification. The left popliteal artery is patent with no circumferential calcification though no significant luminal stenosis. The left tibioperoneal trunk is widely patent. The left anterior tibial artery has near circumferential calcification limiting the assessment of luminal patency however at its distal segment it continues as faintly filled dorsalis pedis artery. The left peroneal artery is normal size with no significant luminal stenosis and terminates just above the ankle. The left posterior tibial artery is patent at its proximal and mid segments and continuous as a faintly filled posterior plantar branches. The right superficial femoral artery has diffuse near circumferential calcification. At its mid segment the right SFA has severe protruding calcification with at least moderate to severe luminal stenosis with another similar protruding calcification at its distal segment with again a moderate luminal stenosis noted. The right popliteal artery is severely calcified with moderate to severe luminal stenosis at its mid segment. The distal segment of the popliteal artery is normal caliber with minimal calcification and no evidence of luminal stenosis. The right peroneal trunk is widely patent. The right anterior tibial artery has diffuse calcification though widely patent and continues at its distal segment has normal caliber dorsalis pedis artery. The right peroneal artery is normal size with diffuse luminal ligamentous and terminates just above the ankle. The right posterior tibial artery has diffuse calcific atherosclerotic changes however at its distal segment it continues as a normal caliber posterior plantar branches. ABDOMEN-PELVIS:In the abdomen, the liver and spleen appears unremarkable. No abnormal enhancing structure is identified. The gallbladder and pancreas appears grossly normal. The adrenal glands are not enlarged. The kidneys are normal in size and shape. No hydronephrosis or perirenal fluid collection is identified. There are simple appearing renal cysts at the upper pole of the left and lower pole of the right kidneys, respectively with the largest measuring 1.6 cm. Bowel is not well assessed by CT angiography as enteric contrast is not given. No obvious bowel dilation is seen. There is no significant retroperitoneal adenopathy. No free fluid or free air is identified. The visualized pelvic organs appear unremarkable. BONES:Degenerative changes involving the lumbar spine. Impression: 1. The abdominal aorta is normal in course and caliber with mild to moderate near circumferential calcification prominently involving the infrarenal segment of the abdominal aorta. No acute abnormalities identified. The right common femoral artery has severe protruding calcification involving the distal segment before the bifurcation leading to at least moderate luminal stenosis with a minimal luminal diameter measuring 2.8 x 3.3 mm. 2. The distal segment of the left common femoral artery has severe protruding calcification just before its bifurcation leading to moderate to severe luminal stenosis with minimal luminal diameter measuring 2.1 x 3.5 mm. 3. Mid right SFA has severe protruding calcification with at least moderate to severe luminal stenosis with another similar protruding calcification at its distal segment with again a moderate luminal stenosis noted. 4. The right popliteal artery is severely calcified with moderate to severe luminal stenosis at its mid segment. An addendum will be dictated regarding the non-vascular findings by the Personal Banking Officer Radiologists. Signed: Buck Sears Verified Date/Time: 08/10/2020 14:41:04 Reading Location: [place] [address] CT Reading Room -Creatinine 2020-08-10 12:09:00 Test Item Value Reference Range Interpretation Comme nts POC-Creatinine (test code = 0.8 mg/dL 0.6-1.3 : TESTED AT [facility] [address] [facility] [address] [place], [address]: Metrology Manager/Techni sandip ID = [id number] for Sam Diallo POC-EGFR (test code = 1860) 94 mL/min/1.73M2 [facility][id number] 12:09:00 Test Item Value Reference Range Interpretation Comments POC-CREATININE 0.8 mg/dL 0.6-1.3 : TESTED AT [facility] (BEAKER) (test [address] [place] [address] code = 1859) [place], [address]: Metrology Manager/Techni sandip ID = [id number] for Aretha Diallo POC-EGFR (BEAKER) 94 mL/min/1.73M2 (test code = 1860) Platelet Aggregation: Function [id number] 14:06:00 Test Item Value Reference Range Interpretation Comments Pathologist: (test Daily Pina MD code = 2622) (electronic signature) Platelets (test code = 222 150- 450 K/CU MM 2656) ADP (test code = 6 % 62-100 L 16568-3) Platelet Rich Plasma 278 200- 300 k/cu mm (test code = 2134) Plt. Function Screen Pattern of Interpretation (test disaggregation present code = 4655) with ADP which may be characteristic of P2Y12 inhibitor effect. Correlation with medication history is required. MAEVE (test code = MAEVE) Platelet Function Screen results may be falsely low with platelet counts<75,000/cu mm.Metrology Manager ID - [id number] Lab Interpretation Abnormal (test code = 48203-9) [facility]ATE[facility] AGGREG[facility]: FUNCTION [id number] 14:06:00 Test Item Value Reference Range Interpretation Comments [id number] Daily Pina MD (BEAKER) (test code = [...] may be falsely low with platelet counts<75,000/cu mm.Metrology Manager ID- [id number]-Glucose [id number] 08:14:00 Test Item Value Reference Range Interpretation Comments POC-Glucose Meter (test 148 mg/dL 70-110 H : TE STED AT [facility] code = 1538) [address] [facility], [address]: Metrology Manager/Techni sandip ID = [id number] for ELA CHAVO BEL Lab Interpretation (test Abnormal code = 44047-4) [facility] [id number] 08:14:00 Test Item Value Reference Range Interpretation Comments POC-GLUCOSE METER 148 mg/dL 70-110 H : TESTED A T [facility] [address] (JUSTINE) (test code = BRENDA Dykes [facility], 1538) [address]: Metrology Manager/Techni sandip ID = [id number] for ELA, CHAVO BEL Basic Metabolic [id number] 06:48:00 Test Item Value Reference Range Interpretation Comments Sodium (test code = 138 meq/L 387-340 8451-2) Potassium (test code = 3.9 meq/L 3.5-5.1 2823-3) Chloride (test code = 107 meq/L 98-107 2075-0) CO2 (test code = 24 meq/L 22-29 2028-9) BUN (test code = 9 mg/dL 7-21 3094-0) Creatinine (test code 0.92 mg/dL 0.57-1.25 = 2160-0) Glucose (test code = 130 mg/dL 70-105 H 2345-7) Calcium (test code = 8.4 mg/dL 8.4-10.2 17614-3) EGFR (test code = 80 mL/min/1.73 [place] [address]-4) NOT ACCURATE CREATININE CLEARANCE IN PREDICTING GLOMERULAR FILTRATION RATE . ESTIMATED GFR I S NOT APPLICABLE FOR DIALYSIS PATIENTS. MAEVE (test code = MAEVE) Metrology Manager ID - PIAYA L Lab Interpretation Abnormal (test code = 73072-8) [facility]anoMagnesium2020-06-17 06:48:00 Test Item Value Reference Range Interpretation Comments Magnesium (test code = 2.4 mg/dL 1.6-2.6 87769-1) MAEVE (test code = MAEVE) Metrology Manager ID Jose HAAS L Lab Interpretation (test Normal code = 26901-4) [facility]anoPhosphorus2020-06-17 06:48:00 Test Item Value Reference Range Interpretation Comments Phosphorus (test code = 2.5 mg/dL 2.3-4.7 2777-1) MAEVE (test code = MAEVE) Metrology Manager ID Jose HAAS L Lab Interpretation (test Normal code = 73115-6) [facility]PHOSPHORUS2020-06-17 06:48:00 Test Item Value Reference Range Interpretation Comments PHOSPHORUS (BEAKER) (test code = 2.5 mg/dL 2.3-4.7 604) Metrology Manager ID Jose HAAS [id number] 06:48:00 Test Item Value Reference Range Interpretation Comments MAGNESIUM (BEAKER) (test code = 2.4 mg/dL 1.6-2.6 627) Metrology Manager ID Jose HAAS LBASIC METABOLIC [id number] 06:48:00 Test Item Value Reference Range Interpretation [...] S NOT APPLICABLE FOR DIALYSIS PATIEN TS. Metrology Manager ID - WALDO LCBC with platelet count + automated [id number] 06:11:00 Test Item Value Reference Range Interpretation [...] K/CU MM L MPV (test code = 42431-6) 10.3 fL 9.4-12.4 nRBC (test code = [...] 2801) Lab Interpretation (test code = Abnormal 05422-0) [facility]CB W/PLT COUNT & AUTO [id number] 06:11:00 Test Item Value Reference Range Interpretation [...] PERCENT (BEAKER) (test code = 2801) POCT-GLUCOSE [id number] 21:40:00 Test Item Value Reference Range Interpretation Comments POC-GLUCOSE METER 168 mg/dL 70-110 H : TESTED A T [facility] [address] (GREYSONGE[place]ANNI) (test code = BRENDA Dykes [facility], 1538) [address]: Metrology Manager/Techni sandip ID = [id number] for MARCE MIRANDA POCT-GLUCOSE [id number] 17:04:00 Test Item Value Reference Range Interpretation Comments POC-GLUCOSE METER 159 mg/dL 70-110 H : Notified RN/MD: (JUSTINE) (test code = TESTED AT [facility] 67[address] 1538) [facility], [address]: Metrology Manager/Techni sandip ID = [id number] for JORDAN RODRIGUEZGABRIELERuslan ECG 12 [id number] 12:43:36Interface, External Ris In - 02/23/2020 12:43 PM CDTVentricular Rate 74 BPMAtrial Rate 74 BPMP-R Interval 174 msQRS Duration 88 msQ-T Interval 396 msQTC Calculation(Bazett) 439 msP [place] 46 degreesR [place] 10 degreesT [place] 99 degreesSinus rhythm with Premature atrial complexes and Premature ventricular complexes or Fusion complexesT wave inversion in aVLAbnormal ECGWhen compared with ECG of 23-FEB-2020 09:10,Fusion complexes are now PresentPremature ventricular complexes are now PresentPremature atrial complexes are now PresentQRS axis has shifted from leftT waves are no longer negative in I, V3-V6QT has shortenedConfirmed by MD IDALIA, EVA ([id number]) on 02/23/2020 12:43:33 [facility] [id number] 11:29:00 Test Item Value Reference Range Interpretation Comments POC-GLUCOSE METER 151 mg/dL 70-110 H : Notified RN/: (JUSTINE) (test code = TESTED AT [facility] 67 1538) [facility], [address]: Metrology Manager/Techni sandip ID = [id number] for ROMINA RODRIGUEZ POCT-GLUCOSE [id number] 10:17:00 Test Item Value Reference Range Interpretation Comments POC-GLUCOSE METER 167 mg/dL 70-110 H : Notified RN/: (JUSTINE) (test code = TESTED AT [facility] 67[address] 1538) [facility], [address]: Metrology Manager/Techni sandip ID = [id number] for ROMINA RODRIGUEZ [id number] 08:36:00 Test Item Value Reference Range Interpretation Comments PHOSPHORUS (BEAKER) (test code = 2.4 mg/dL 2.3-4.7 604) Metrology Manager ID Jose DELGADO [id number] 08:36:00 Test Item Value Reference Range Interpretation Comments MAGNESIUM (BEAKER) (test code = 2.3 mg/dL 1.6-2.6 627) Metrology Manager ID Jose DELGADO FBASIC METABOLIC [id number] 08:36:00 Test Item Value Reference Range Interpretation [...] S NOT APPLICABLE FOR DIALYSIS PATIEN TS. Metrology Manager ID Jose DELGADO FPOCT-GLUCOSE [id number] 08:10:00 Test Item Value Reference Range Interpretation Comments POC-GLUCOSE METER 166 mg/dL 70-110 H : TESTED A T [facility] [address] (BEAKER) (test code = BRENDA [place], 1538) [address]: Metrology Manager/Techni sandip ID = [id number] for ROMINA RODRIGUEZ Hemoglobin [id number] 08:09:00 Test Item Value Reference Range Interpretation Comments Hemoglobin A1C (test code = 4548-4) 8.8 % 4.3-6.1 H Lab Interpretation (test code = Abnormal 44431-7) [facility]anoHEMOGLOBIN [id number] 08:09:00 Test Item Value Reference Range Interpretation Comments HEMOGLOBIN A1C (JUSTINE) (test code = 8.8 % 4.3-6.1 H 368) POCT-GLUCOSE [id number] 07:42:00 Test Item Value Reference Range Interpretation Comments POC-GLUCOSE METER 181 mg/dL 70-110 H : TESTED A T [facility] [address] (JUSTINE) (test code = [place], [address]) [address]: Metrology Manager/Techni sandip ID = [id number] for ROMINA RODRIGUEZ RAD, CHEST, 1 VIEW, NON [id number] 07:27:00Reason for exam:->s/p PCI, impella removalShould this be performed at the bedside?->YesFINAL REPORT CLINICAL HISTORY: s/p PCI, impella removal TECHNIQUE: 1 view ofthe chest. COMPARISON: 12/16/2019 IMPRESSION: There are no focal infiltrates or effusions. The cardiomediastinal silhouette is magnified by technique. The osseous structures appear intact. There is mild elevation of the right hemidiaphragm. Signed: Dorothy Nur Verified Date/Time: 02/23/2020 07:27:25 Reading Location: [facility] Radiology Reading Room XR chest 1 view portable / [id number] 07:27:00Interface, External Ris In - 02/23/2020 7:29 AM CDTFINAL REPORT CLINICAL HISTORY: s/p PCI, impella removal TECHNIQUE: 1 view of the chest. COMPARISON: 12/16/2019 IMPRESSION: There are no focal infiltrates or effusions. The cardiomediastinal silhouette is magnified by technique. The osseous structures appear intact. There is mild elevation of the right hemidiaphragm. Signed: Dorothy Nur Verified Date/Time: 02/23/2020 07:27:25 Reading Location: [facility] Radiology Reading [facility] [id number] 06:27:00 Test Item Value Reference Range Interpretation Comments POC-GLUCOSE METER 150 mg/dL 70-110 H : TESTED A T [facility] [address] (BEAKER) (test code = BRENDA Dykes [facility], 1538) [address]: Metrology Manager/Techni sandip ID = [id number] for SYLVIA ELLIS POCT-GLUCOSE [id number] 05:06:00 Test Item Value Reference Range Interpretation Comments POC-GLUCOSE METER 136 mg/dL 70-110 H : TESTED A T [facility] [address] (BEAKER) (test code = BRENDA Dykes [facility], 1538) [address]: Metrology Manager/Techni sandip ID = [id number] for SYLVIA ELLIS Lactic Acid, [id number] 04:40:00 Test Item Value Reference Range Interpretation Comments Lactate, Art (test code = 1.2 mmol/L 0.5-2.2 2874) MAEVE (test code = MAEVE) Metrology Manager ID Jose Mccormick Lab Interpretation (test Normal code = 12042-4) [facility]anoLACTIC ACID, [id number] 04:40:00 Test Item Value Reference Range Interpretation Comments LACTATE BLOOD ARTERIAL (2) 1.2 mmol/L 0.5-2.2 (BEAKER) (test code = 2874) Metrology Manager JORGE LUIS Wrighte, [id number] 04:27:00 Test Item Value Reference Range Interpretation Comments Ketones, Blood (test code = 1103) 0.8 mmol/L <0.4 H Lab Interpretation (test code = Abnormal 21812-4) [facility]anoKETONE, [id number] 04:27:00 Test Item Value Reference Range Interpretation Comments KETONES, BLOOD (BEAKER) (test code 0.8 mmol/L <0.4 H = 1103) POCT-GLUCOSE [id number] 04:19:00 Test Item Value Reference Range Interpretation Comments POC-GLUCOSE METER 170 mg/dL 70-110 H : TESTED A T [facility] [address] (BEAKER) (test code = BRENDA Dykes [facility], 1538) [address]: Metrology Manager/Techni sandip ID = [id number] for SYLVIA ELLIS LACTATE DEHYDROGENASE (LDH)2020-02-23 04:06:00 Test Item Value Reference Range Interpretation Comments LACTATE DEHYDROGENASE (BEAKER) (test 245 U/L 125-220 H code = 635) Metrology Manager JORGE LUIS GAONA MLactate dehydrogenase (LDH)2020-02-23 03:59:00 Test Item Value Reference Range Interpretation Comments LDH (test code = 2532-0) 201 U/L 125-220 MAEVE (test code = MAEVE) Metrology Manager ID Jose JACOBS W Lab Interpretation (test Normal code = 26621-7) [facility]anoMAGNESIUM2020-06-16 03:59:00 Test Item Value Reference Range Interpretation Comments MAGNESIUM (BEAKER) (test code = 2.3 mg/dL 1.6-2.6 627) Metrology Manager JORGE LUIS JACOBS WBASIC METABOLIC [id number] 03:59:00 Test Item Value Reference Range Interpretation [...] S NOT APPLICABLE FOR DIALYSIS PATIEN TS. Metrology Manager ID Jose JACOBS WLACTATE DEHYDROGENASE (LDH)2020-02-23 03:59:00 Test Item Value Reference Range Interpretation Comments LACTATE DEHYDROGENASE (BEAKER) (test 201 U/L 125-220 code = 635) Metrology Manager JORGE LUIS JACOBS WBlood gas, [id number] 03:46:00 Test Item Value Reference Range Interpretation Comments pH, Arterial (test code = 2744-1) 7.45 7.35-7.45 pCO2, Arterial (test code = 34 35- 45 mmHg L 2018-8) pO2, Arterial (test code = 140 80- 90 mmHg H 2703-7) O2 Sat, Arterial (test code = 98.9 % 96-97 H 2708-6) HCO3, Arterial (test code = 23 mmol/L 21-29 1960-4) Base Excess, Arterial (test code -0.2 mmol/L -2-3 = 1925-7) Patient Temperature (test code = 37.0 C 8310-5) FIO2 (test code = 1819) 21 % Lab Interpretation (test code = Abnormal 41464-6) [facility], [id number] 03:46:00 Test Item Value Reference Range Interpretation [...] K/CU MM L MPV (test code = 49943-2) 10.1 fL 9.4-12.4 nRBC (test code = 413) 0 0- 0 /100 WBC Lab Interpretation (test code = Abnormal 77823-3) [facility] (HEMOGRAM ONLY)2020-02-23 03:38:00 Test Item Value Reference [...] 0-0 (BEAKER) (test code = 413) POCT-GLUCOSE [id number] 03:30:00 Test Item Value Reference Range Interpretation Comments POC-GLUCOSE METER 174 mg/dL 70-110 H : TESTED [employer] [facility] 6720 (BEAKER) (test code = BRENDA RAWLS [place], 1538) 19377: Metrology Manager/Techni sandip ID = [id number] for SYLVIA ELLIS POCT-GLUCOSE [id number] 02:16:00 Test Item Value Reference Range Interpretation Comments POC-GLUCOSE METER 153 mg/dL 70-110 H : TESTED A T [facility] 6720 (BEAKER) (test code = BRENDA Dykes [facility], 1538) 30721: Metrology Manager/Techni sandip ID = [id number] for SYLVIA ELLIS POCT-GLUCOSE [id number] 01:23:00 Test Item Value Reference Range Interpretation Comments POC-GLUCOSE METER 145 mg/dL 70-110 H : TESTED A T [facility] 6720 (BEAKER) (test code = BRENDA Dykes [facility], 1538) 41666: Metrology Manager/Techni sandip ID = [id number] for SYLVIA ELLIS [id number] 00:59:00 Test Item Value Reference Range Interpretation Comments PHOSPHORUS (BEAKER) (test code = 2.3 mg/dL 2.3-4.7 604) Metrology Manager ID - BUCFVAJBCOW9260-74-95 00:59:00 Test Item Value Reference Range Interpretation Comments MAGNESIUM (BEAKER) (test code = 2.5 mg/dL 1.6-2.6 627) Metrology Manager ID - DBBASIC METABOLIC [id number] 00:59:00 Test Item Value Reference Range Interpretation [...] S NOT APPLICABLE FOR DIALYSIS PATIEN TS. Metrology Manager ID - DBLactic acid, [id number] 00:55:00 Test Item Value Reference Range Interpretation Comments Lactate, Venous (test code = 1.65 mmol/L 0.5-2.2 2872) MAEVE (test code = MAEVE) Metrology Manager ID - DB Lab Interpretation (test Normal code = 96584-1) [facility]anoLACTIC ACID, [id number] 00:55:00 Test Item Value Reference Range Interpretation Comments LACTATE BLOOD VENOUS (2) (BEAKER) 1.65 mmol/L 0.50-2.20 (test code = 2872) Metrology Manager ID - DBPOCT-GLUCOSE [id number] 00:23:00 Test Item Value Reference Range Interpretation Comments POC-GLUCOSE METER 154 mg/dL 70-110 H : TESTED A T [facility] 6720 (BEAKER) (test code = BRENDA [place], 1538) 42737: Metrology Manager/Techni sandip ID = [id number] for SYLVIA ELLIS BASIC METABOLIC [id number] 21:52:00 Test Item Value Reference Range Interpretation [...] S NOT APPLICABLE FOR DIALYSIS PATIEN TS. Metrology Manager ID - DBLACTIC ACID, [id number] 21:49:00 Test Item Value Reference Range Interpretation Comments LACTATE BLOOD ARTERIAL (2) 2.9 mmol/L 0.5-2.2 H (BEAKER) (test code = 2874) Metrology Manager ID - DBKETONE, [id number] 21:41:00 Test Item Value Reference Range Interpretation Comments KETONES, BLOOD (BEAKER) (test code 1.6 mmol/L <0.4 H = 1103) BLOOD GAS, [id number] 21:33:00 Test Item Value Reference Range Interpretation [...] (test code = 1819) 36.0 % POCT-GLUCOSE [id number] 21:11:00 Test Item Value Reference Range Interpretation Comments POC-GLUCOSE METER 232 mg/dL 70-110 H : TESTED A T [facility] 6720 (BEAKER) (test code = [facility], 1538) 98241: Metrology Manager/Techni sandip ID = [id number] for [place] POCT-GLUCOSE [id number] 19:19:00 Test Item Value Reference Range Interpretation Comments POC-GLUCOSE METER 276 mg/dL 70-110 H : TESTED A T [facility] 6720 (BEAKER) (test code = [facility], 1538) 15059: Metrology Manager/Techni sandip ID = [id number] for [place] Creatine Kinase (CK)2020-02-22 19:03:00 Test Item Value Reference Range Interpretation Comments Total CK (test code = 152 U/L 29-200 2157-6) MAEVE (test code = MAEVE) Metrology Manager ID - DB Lab Interpretation (test Normal code = 99805-0) [facility]anoCREATINE KINASE (CK)2020-02-22 19:03:00 Test Item Value Reference Range Interpretation Comments CREATINE KINASE TOTAL (BEAKER) (test 152 U/L 29-200 code = 380) Metrology Manager ID - DBPOCT-GLUCOSE [id number] 18:43:00 Test Item Value Reference Range Interpretation Comments POC-GLUCOSE METER 311 mg/dL 70-110 H : TESTED A T [facility] 6720 (BEAKER) (test code = BRENDA RAW[place], 1538) 85763: Metrology Manager/Techni sandip ID = [id number] for FLAQUITA WALL LACTIC ACID, [id number] 18:30:00 Test Item Value Reference Range Interpretation Comments LACTATE BLOOD ARTERIAL (2) 4.7 mmol/L 0.5-2.2 HH (BEAKER) (test code = 2874) Metrology Manager ID - [id number] 18:28:00 Test Item Value Reference Range Interpretation Comments PHOSPHORUS (BEAKER) (test code = 4.4 mg/dL 2.3-4.7 604) Metrology Manager ID - [id number] 18:28:00 Test Item Value Reference Range Interpretation Comments MAGNESIUM (BEAKER) (test code = 1.9 mg/dL 1.6-2.6 627) Metrology Manager ID - DBBASIC METABOLIC [id number] 18:28:00 Test Item Value Reference Range Interpretation [...] S NOT APPLICABLE FOR DIALYSIS PATIEN TS. Metrology Manager ID - DBGlucose-Stat [id number] 18:07:00 Test Item Value Reference Range Interpretation Comments Glucose (test code = 2345-7) 292 mg/dL 70-110 H Lab Interpretation (test code = Abnormal 87386-0) [facility]anoGLUCOSE-STAT [id number] 18:07:00 Test Item Value Reference Range Interpretation Comments GLUCOSE RANDOM (BEAKER) (test code 292 mg/dL 70-110 H = 652) BASIC METABOLIC [id number] 15:15:00 Test Item Value Reference Range Interpretation [...] S NOT APPLICABLE FOR DIALYSIS PATIEN TS. Metrology Manager ID - DBProthrombin time/[id number] 15:12:00 Test Item Value Reference Range Interpretation [...] valves. Lab Interpretation Abnormal (test code = 03514-3) [facility]anoaPTT2020-06-15 15:12:00 Test Item Value Reference Range Interpretation Comments PTT (test code = 12383-9) 30.1 22.5- 36.0 seconds Lab Interpretation (test code = Normal 21292-2) [facility]anoPROTHROMBIN TIME/[id number] 15:12:00 Test Item Value Reference Range Interpretation [...] for patients wiht mechanical heart valves.LACTIC ACID, [id number] 15:12:00 Test Item Value Reference Range Interpretation Comments LACTATE BLOOD 3.6 mmol/L 0.5-2.2 H Specimen sligh tly ARTERIAL (2) (BEAKER) hemoly zed (test code = 2874) Metrology Manager ID - [id number] 15:12:00 Test Item Value Reference Range Interpretation Comments PARTIAL THROMBOPLASTIN TIME 30.1 seconds 22.5-36.0 (BEAKER) (test code = 760) CBC W/PLT COUNT & AUTO [id number] 15:09:00 Test Item Value Reference Range Interpretation [...] PERCENT (BEAKER) (test code = 2801) Platelet [id number] 15:01:00 Test Item Value Reference Range Interpretation Comments Platelets (test code = 777-3) 154 150- 450 K/CU MM Lab Interpretation (test code = Normal 51644-9) [facility]anoPLATELET [id number] 15:01:00 Test Item Value Reference Range Interpretation Comments PLATELET COUNT (BEAKER) (test 154 K/CU MM 150-450 code = 756) Prepare [id number] 14:09:00 Test Item Value Reference Range Interpretation Comments CROSSMATCH (test code = COMPATIBLE 2264) Unit ABO (test code = O Pos 7903836) UNIT NUMBER (test code = [id number] 934-0) Status (test code = RETURNED FROM ISSUE 4962421) Blood Bank Product (test RED BLOOD CELLS code = 2263) PRODUCT CODE (test code = P7363P87 933-2) [facility] ACTIVATED CLOTTING [id number] 13:51:00 Test Item Value Reference Range Interpretation Comments Activated Clotting Time 125 sec : 74 -137 seconds, (test code = 441) Baseline: TESTED AT [facility] 6720 [facility], 770 30: Metrology Manager/Techni sandip ID = [id number] for CAST RO, SILVERIO [facility]anoPOCT-[id number] 13:51:00 Test Item Value Reference Range Interpretation Comments ACTIVATED CLOTTING TIME 125 sec : 74 -137 seconds, (BEAKER) (test code = Baseli ne: TESTED AT 441) [facility] [address] [place] [address], 770 30: Metrology Manager/Techni sandip ID = [id number] for CA STRO, SILVERIO HGB/HCT (H&H)-Stat [id number] 13:24:00 Test Item Value Reference Range Interpretation Comments Hemoglobin (test code = 786-4) 10.6 g/dL 13-16.8 L Hematocrit (test code = 4544-3) 31.0 % 40-50 L Lab Interpretation (test code = Abnormal 41145-8) [facility]anoGLUCOSE-STAT [id number] 13:24:00 Test Item Value Reference Range Interpretation Comments GLUCOSE RANDOM (BEAKER) (test code 185 mg/dL 70-110 H = 652) HGB/HCT (H&H) - STAT [id number] 13:24:00 Test Item Value Reference Range Interpretation Comments HEMOGLOBIN (BEAKER) (test code = 10.6 g/dL 13.0-16.8 L 410) HEMATOCRIT (BEAKER) (test code = 31.0 % 40.0-50.0 L 411) Sodium Na-Stat [id number] 13:23:00 Test Item Value Reference Range Interpretation Comments Sodium (test code = 2951-2) 136 meq/L 136-145 Lab Interpretation (test code = Normal 57257-5) [facility]anoPotassium-Stat [id number] 13:23:00 Test Item Value Reference Range Interpretation Comments Potassium (test code = 2823-3) 3.8 meq/L 3.6-5.5 Lab Interpretation (test code = Normal 34450-5) [facility] [id number] 13:23:00 Test Item Value Reference Range Interpretation Comments SODIUM (BEAKER) (test code = 381) 136 meq/L 136-145 POTASSIUM-STAT [id number] 13:23:00 Test Item Value Reference Range Interpretation Comments POTASSIUM (BEAKER) (test code = 3.8 meq/L 3.6-5.5 379) BLOOD GAS, [id number] 13:23:00 Test Item Value Reference Range Interpretation [...] (BEAKER) (test code = 1819) 50.0 % [id number] 12:04:00 Test Item Value Reference Range Interpretation Comments ACTIVATED CLOTTING TIME 296 sec : 74 -137 seconds, (BEAKER) (test code = Baseli ne: TESTED AT 441) [facility] [address] [facility] [place], 770 30: Metrology Manager/Techni sandip ID = [id number] for CHAGO RAHMAN [id number] 11:48:00 Test Item Value Reference Range Interpretation Comments ACTIVATED CLOTTING TIME 257 sec : 74 -137 seconds, (BEAKER) (test code = Baseli ne: TESTED AT 441) [address], [facility] 30: Metrology Manager/Techni sandip ID = [id number] for ZURI YAP, CHAGO [id number] 11:21:00 Test Item Value Reference Range Interpretation Comments ACTIVATED CLOTTING TIME 307 sec : 74 -137 seconds, (BEAKER) (test code = Baseli ne: TESTED AT 441) [place] [address] 30: Metrology Manager/Techni sandip ID = [id number] for RE DIC, BETY [id number]-[id number] 10:34:00 Test Item Value Reference Range Interpretation Comments ACTIVATED CLOTTING TIME 296 sec : 74 -137 seconds, (BEAKER) (test code = Baseli ne: TESTED AT 441) [place] [address] 30: Metrology Manager/Techni sandip ID = [id number] for RE DIC, BETY [id number] 09:58:00 Test Item Value Reference Range Interpretation Comments ACTIVATED CLOTTING TIME 290 sec : 74 -137 seconds, (BEAKER) (test code = Baseli ne: TESTED AT 441) [place] [address] 30: Metrology Manager/Techni sandip ID = [id number] for RE DIC, BETY [id number] 09:36:00 Test Item Value Reference Range Interpretation Comments ACTIVATED CLOTTING TIME 257 sec : 74 -137 seconds, (BEAKER) (test code = Baseli ne: TESTED AT 441) [place] [address] 30: Metrology Manager/Techni sandip ID = [id number] for RE DIC, BETY SARS-CoV2/RT-PCR (Asymptomatic ONLY)2020-02-21 19:54:00 Test Item Value Reference Range Interpretation Comments SARS-COV2/RT-PCR Not Detected Not Detected, (test code = Negative 68377-8) SARS-COV-2 [facility] PERFORMING LAB (test code = 09693-1) MAEVE (test code = Negative results do [...] of the Act. Fact Sheet for Healthcare Providers:https://www.[employer]/Documents/Xper t%20Xpress%20SARS%20CoV- 2/Fact%20Sheets/3023802 %79XVRA-FVB-6%20HEALTHCA RE%20PROVIDERS%20FACT%20 SHEET.pdf Fact Sheet for Healthcare Patients:https://www.[employer]/Documents/Xpert %20Xpress%20SARS%20CoV-2 /Fact%20Sheets/3023801% 89XTOH-HOR-5%20PATIENT%2 0FACT%20SHEET.pdf Performing Laboratory:[facility]ARS-COV2/RT-PCR ([facility])2020-02-21 19:54:00 Test Item Value Reference Range Interpretation Comments SARS-COV2/RT-PCR (test Not Detected Not Detected, Negative code = 9943707) SARS-COV-2 PERFORMING LAB [facility] (test code = 2580264) Negative results do not preclude SARS-CoV-2 infection [...] of the Act.Fact Sheet for Healthcare Pro viders:https://www.[employer]/Documents/Xpert%20Xpress%20SARS%20CoV-2/Fact%20Sh eets/302-3802%18MKTE-MCT-7%20HEALTHCARE%20PROVIDERS%20FACT%20SHEET.pdfFact Sheet for Healthcare Patients:https://www.[employer]/Documents/Xpert%20Xpress%20SARS%20CoV-2/Fact%20Sheets/302-3801%20SARS-COV -2%20PATIENT%20FACT%20SHEET.pdfPerforming Laboratory:[facility], [place] [address]Azue and screen, automated ([facility] Lab) 2020-02-21 19:37:00 Test Item Value Reference Range Interpretation Comments ABO/RH AUTOMATED (BEAKER) (test O POSITIVE code = 2260) Ab Scrn (test code = 890-4) NEGATIVE [facility]MAGNESIUM2020-06-14 19:07:00 Test Item Value Reference Range Interpretation Comments MAGNESIUM (BEAKER) (test code = 2.4 mg/dL 1.6-2.6 627) Metrology Manager ID - DBBASI METABOLIC [id number] 19:07:00 Test Item Value Reference Range Interpretation [...] S NOT APPLICABLE FOR DIALYSIS PATIEN TS. Metrology Manager ID - DBCBC W/PLT COUNT & AUTO [id number] 18:56:00 Test Item Value Reference Range Interpretation [...] 0-1 PERCENT (BEAKER) (test code = 2801) [id number] 18:54:00 Test Item Value Reference Range Interpretation Comments Protime (test code = 14.3 11.9- 14.2 H 5902-2) seconds INR (test code = 1.1 <=5.9 6301-6) PTT (test code = 30.5 22.5- 36.0 94942-2) seconds MAEVE (test code = MAEVE) Effective 02/04/2019: PT Reference Range ChangeNew: 11.9-14.2 Previous: 11.7-14.7 RECOMMENDED COUMADIN/WARFARIN INR THERAPY RANGESSTANDARD DOSE: 2.0-3.0 Includes: PROPHYLAXIS for venous thrombosis, systemic embolization; TREATMENT for venous thrombosis and/or pulmonary embolus.HIGH RISK: Target INR is 2.5-3.5 for patients wiht mechanical heart valves. Lab Interpretation Abnormal (test code = 22357-1) [facility]anoPT/[id number] 18:54:00 Test Item Value Reference Range Interpretation Comments PROTIME (BEAKER) (test code = 14.3 seconds 11.9-14.2 H 759) INR (BEAKER) (test code = 370) 1.1 <=5.9 PARTIAL THROMBOPLASTIN TIME 30.5 seconds 22.5-36.0 (JUSTINE) (test code = 760) Effective 02/04/2019: PT Reference Range ChangeNew: 11.9-14.2 Previous: 11.7- 14.7RECOMMENDED COUMADIN/WARFARIN INR THERAPY RANGESSTANDARD DOSE: 2.0-3.0 Includes: PROPHYLAXIS for venous thrombosis, systemic embolization; TREATMENT for venous thrombosis and/or pulmonary embolus.HIGH RISK: Target INR is2.5-3.5 for patients wiht mechanical heart valves.ECG/EKG Btkshptxmwsdjq5049-74-51 17:30:07Eleazar Beauchamp MD 02/21/2020 6:58 PMECG/EKG InterpretationDate/Time: 02/21/2020 6:57 PMPerformed by: Eleazar Beauchamp MDAuthorized by: Eleazar Beauchamp MD The ECG was interpreted by ED physician. T his ECG was compared with previous ECG(s).Comments: Sinus rhythm with marked sinus arrhythmia, rate 80, OH 184, QRS 82, QTc 433, normal axis, no ST elevations, ST depressions, T wave inversions.[facility] Arterial doppler legs [id number] 10:43:32Ejection FractionSST. [facility] ECHO HEARTLAB MKCKESSON CPACSRight Impression1 There is [...] + + + + + + !Prox SUPERVISOR PARKING [employer] ! !55 ! !Biphasic ! + + + + + + !Dist SUPERVISOR PARK[employer] ! !42 !9 !Biphasic ! + + [...] 12/17/2019 ADDISON HODGES Age 74 Visit Number [id number] Gender Male Accession Number [id number] Date of 1945 [facility] [address] Physician Building Carpenter Mann Miranda T Interpreting Arti Hood, Physician [...] + + + + + + !Prox SUPERVISOR PARKING LOT ! !55 ! !Biphasic ! + + + + + + !Dist SUPERVISOR PARKING LOT ! !42 !9 !Biphasic ! + + + + + + !Prox RONN ! !37 !7 !Biphasic ! + + + + + + !Mid RONN ! !53 !9 !Biphasic ! + + + + + + !Dist RONN ! !51 !10 !Biphasic ! + + + + + + !Dist Peroneal ! !34 !9 !Biphasic ! + + + + + +[facility]PO[facility] [id number] 08:09:00 Test Item Value Reference Range Interpretation Comments POC-GLUCOSE METER 221 mg/dL 70-110 H : Notified RN/MD: TESTED (JUSTINE) (test code AT [facility] [address] = 1538) [facility], 770 30: Metrology Manager/Techni sandip ID = [id number] for CECILE DANIEL Troponin [id number] 04:32:00 Test Item Value Reference Range Interpretation Comments Troponin I (test code = 0.34 ng/mL 0-0.03 10154-6) MAEVE (test code = MAEVE) Troponin I [...] L Lab Interpretation (test Abnormal code = 96138-8) [facility] [id number] 04:32:00 Test Item Value Reference Range Interpretation [...] failure, acidosis, acute neurological disease, and persistent tachyarrhythmia.Metrology Manager ID - PIAYA LBASIC METABOLIC [id number] 04:16:00 Test Item Value Reference Range Interpretation [...] S NOT APPLICABLE FOR DIALYSIS PATIEN TS. Metrology Manager ID - PIAYA LCBC (HEMOGRAM ONLY)2019-12-17 04:01:00 [...] 0-0 (BEAKER) (test code = 413) TROPONIN [id number] 22:30:00 Test Item Value Reference Range Interpretation [...] failure, acidosis, acute neurological disease, and persistent tachyarrhythmia.Metrology Manager ID - BSPOCT-GLUCOSE METER 2019-12-16 21:26:00 Test Item Value Reference Range Interpretation Comments POC-GLUCOSE METER 345 mg/dL 70-110 H : TESTED A T [facility] 6720 ([facility]) (test code = [place], 1538) [address]: Metrology Manager/Techni sandip ID = [id number] for BA TTLES, ARYELL TROPONIN [id number] 16:44:00 Test Item Value Reference Range Interpretation Comments TROPONIN I ([facility]) (test code = 0.48 ng/mL 0.00-0.03 [facility]) Troponin I (TnI) levels must be interpreted [...] failure, acidosis, acute neurological disease, and persistent tachyarrhythmia.Metrology Manager ID - BSPLATELET AGGREGATION: FUNCTION [id number] 16:28:00 Test Item Value Reference Range Interpretation Comments [id number] Daily Pina, ([facility]) (test code = (electronic 1767) signature) PLATELET COUNT AGG 198 K/CU MM 150-450 ([facility]) (test code = 2656) PLATELET RICH 285 k/cu mm 200-300 PLASMA([facility]) (test code = 2134) PLATELET FUNCTION SCREEN Decreased aggregation INTERPRETATION ([facility]) with ADP which (test code = 4655) indicates platelet dysfunction that may be due to medication effect, uremia, or other platelet function disorders. Clinical correlation is required. Platelet Function Screen results may be falsely low with platelet counts<75,000/cu mm.Metrology Manager ID- [id number] 16:22:00 Test Item Value Reference Range Interpretation Comments PARTIAL THROMBOPLASTIN TIME 36.5 seconds 22.5-36.0 H ([facility]) (test code = 760) 6 hours after starting heparin infusion and as indicated per sliding nlocv8D Echo W/Doppler(CW/PW/Color)2019-12-16 14:50:06Ejection FractionSLEH ECHO HEARTLAB MKCKESSON CPACSInterface, External Ris In - 12/16/2019 2:50 PM C DTTransthoracic Echocardiography Report (TTE) Demographics Patient Name ALTHEA TOVAR Date of Study 12/16/2019 ADDISON HODGES Gender Male Visit Number [id number] Race Unknown Room Number 1431 Number Date of 1945 Referring Leonardo Molina MD Physician Age 74 year(s) Building Carpenter Armando Haskins Emergency Services Professional Katyln Reyes, [facility] Interpreting Sadie Sandoval MD Procedure Type of [...] TR Velocity: 2.75 m/s TR Gradient: 30.24 mmHgAdventist Health DelanoPOCT-GLUCOSE [id number] 12:29:00 Test Item Value Reference Range Interpretation Comments POC-GLUCOSE METER 278 mg/dL 70-110 H : TESTED A T [facility] 6720 (JUSTINE) (test code = BREN[place] Jan[place], 1538) [address]: Metrology Manager/Techni sandip ID = [id number] for CIARAN MENENDEZ TROPONIN [id number] 11:03:00 Test Item Value Reference Range Interpretation Comments TROPONIN I (JUSTINE) (test code = 0.39 ng/mL 0.00-0.03 [facility]) Troponin I (TnI) levels must be interpreted [...] failure, acidosis, acute neurological disease, and persistent tachyarrhythmia.Metrology Manager ID - NEELAM [id number] 10:50:00 Test Item Value Reference Range Interpretation Comments PARTIAL THROMBOPLASTIN TIME 29.5 seconds 22.5-36.0 (JUSTINE) (test code = 760) Prior to initiating heparinRAD, CHEST, 1 VIEW, NON [id number] 10:00:00Reason for exam:->Short of breathShould this be performed at the bedside?->Yes FINAL REPORT INDICATION: Short of breath COMPARISON: December 15, 2019 TECHNIQUE:Single frontal view of the chest. FINDINGS: Lungs and pleura: Mild interstitial edema. Trace right effusion. Heart and mediastinum: Normal heart size. Unremarkable mediastinal contours.Osseous structures: No acute abnormality.Other: None. . Signed: Myrna Lange MDReport Verified Date/Time: 12/16/2019 10:00:26 Reading Location: [facility] Radiology Reading Room HEMOGLOBIN [id number] 09:56:00 Test Item Value Reference Range Interpretation Comments HEMOGLOBIN A1C (JUSTINE) (test code = 9.5 % 4.3-6.1 H 368) Carotid doppler [id number] 08:21:17Ejection FractionSLEH ECHO HEARTLAB MKCKESSON CPACSRight Impression1. There is [...] 12/16/2019 ADDISON HODGES Age 74 Visit Number [id number] Gender Male Date of 1945 Referring Kristine Patterson Room Number 1431 Physician Building Carpenter Joycelyn Mcintosh T Interpreting Arti Hood Physician ProcedureType of Study: Cerebral: Carotid,CAROTID DOPPLER, BILATERAL. Indications for Study:Preop.Patient Status:Routine.Study Location:[facility] eTechnical Quality:Technically Difficult.Risk FactorsHistory of Disease+ +----+ +!Diagnosis [...] the left side. - Additional Measurements:ICAPSV/CCAPSV 2.09.ICAEDV/CCAEDV 2.57.[facility] POCT-GLUCOSE [id number] 08:11:00 Test Item Value Reference Range Interpretation Comments POC-GLUCOSE METER 140 mg/dL 70-110 H : TESTED A T [facility] 6720 ([place]) (test code = [place], 1538) [address]: Metrology Manager/Techni sandip ID = [id number] for MICHELLE NAGELCIARAN Lipid [id number] 05:11:00 Test Item Value Reference Range Interpretation Comments Triglycerides (test 133 mg/dL code = 2571-8) Cholesterol (test code 101 mg/dL = 2093-3) HDL (test code = 26 mg/dL 5-9) LDL Calculated (test 48 mg/dL code = 52933-8) MAEEV (test code = MAEVE) Triglyceride Reference Range: Low Risk <150 Borderline 150-199 High Risk 200-499 Very High Risk >=500 Cholesterol Reference Range: Low Risk <200 Borderline 200-239 High Risk >240 HDL Cholesterol Reference Range: Low Risk >=60 High Risk <40 LDL Cholesterol Reference Range: Optimal <100 Near Optimal 100-129 Borderline 130-159 High 160-189 Very High >=190 Metrology Manager ID - JIMENEZ Cho [facility] CenterLIPID [id number] 05:11:00 Test Item Value Reference Range Interpretation [...] Borderline 130-159 High 160-189 Very High >=190 Metrology Manager ID - JIMENEZ MBASIC METABOLIC [id number] 05:11:00 Test Item Value Reference Range Interpretation [...] S NOT APPLICABLE FOR DIALYSIS PATIEN TS. Metrology Manager ID - JIMENEZ AWAD, [id number] 23:30:00 Test Item Value Reference Range Interpretation Comments ABO Grouping (test code = 2588) O Rh Factor (test code = 2589) [facility] [id number] 21:46:00 Test Item Value Reference Range Interpretation Comments POC-GLUCOSE METER 177 mg/dL 70-110 H : TESTED A T [facility] 6720 (BEAKER) (test code = BR[place], 1538) [id number]: Metrology Manager/Techni sandip ID = [id number] for Merced Ambrosio Comprehensive metabolic [id number] 18:50:00 Test Item Value Reference Range Interpretation Comments Protein, Total (test 7.5 6.0- 8.3 gm/dL code = 2885-2) Albumin (test code = 4.2 g/dL 3.5-5 17063-7) Alkaline Phosphatase 62 U/L 40-150 (test code = 6768-6) Total Bilirubin (test 0.7 mg/dL 0.2-1.2 code = 1975-2) Sodium (test code = 137 meq/L 277-983 9589-2) Potassium (test code = 3.6 meq/L 3.5-5.1 2823-3) Chloride (test code = 99 meq/L 98-107 2075-0) CO2 (test code = 26 meq/L 22-29 2028-9) BUN (test code = 13 mg/dL 7-21 3094-0) Creatinine (test code 0.83 mg/dL 0.57-1.25 = 2160-0) Glucose (test code = 177 mg/dL 70-105 H 2345-7) Calcium (test code = 10.0 mg/dL 8.4-10.2 04711-2) AST (test code = 44 U/L 5-34 H 1920-8) ALT (test code = 27 U/L 6-55 1742-6) EGFR (test code = 90 mL/min/1.73 [place] [address]-2) NOT ACCURATE CREATININE CLEARANCE IN PREDICTING GLOMERULAR FILTRATION RATE . ESTIMATED GFR I S NOT APPLICABLE FOR DIALYSIS PATIENTS. MAEVE (test code = MAEVE) Metrology Manager ID - BS Lab Interpretation Abnormal (test code = 38409-3) [facility] [id number] 18:50:00 Test Item Value Reference Range Interpretation [...] S NOT APPLICABLE FOR DIALYSIS PATIEN TS. Metrology Manager ID - BSPROTHROMBIN TIME/[id number] 18:42:00 Test Item Value Reference Range Interpretation [...] INR is2.5-3.5 for patients wiht mechanical heart valves.[id number] 18:42:00 Test Item Value Reference Range Interpretation Comments PARTIAL THROMBOPLASTIN TIME 29.8 seconds 22.5-36.0 (JUSTINE) (test code = 760) RAD, CHEST, 1 VIEW, NON [id number] 18:34:00Reason for exam:->s/p NSTEMI, pre-op CXRShould this be performed at the bedside?->YesFINAL REPORT Chest, portable AP view History: Status post NSTEMI, preoperative chest x-ray Comparison: No comparisons available for review IMPRESSION: The heart is within normal limits of size. Bibasilar atelectasis. There is mild interstitial edema. Small bilateral pleural effusions are suspected. No focal consolidation or pneumothorax. Signed: Nate Walshort Verified Date/Time: 12/15/2019 18:34:02 Reading Location: [address] Radiology Reading Room POCT-GLUCOSE [id number] 16:09:00 Test Item Value Reference Range Interpretation Comments POC-GLUCOSE METER 185 mg/dL 70-110 H : TESTED A T [facility] 6720 (JUSTINE) (test code = BRENDA RAW[place], 1538) [address]: Metrology Manager/Techni sandip ID = [id number] for GREG SUNG
[2020-08-30] MEDS ORDERED: NOREPINEPHRINE 4mg/D5W 250mL 4 MG/250 ML BAG IV ONE ×2 (14:17→18:31)
[2020-08-30] MEDS ORDERED: VANCOMYCIN 1 GM/VIAL ONE (14:27)
[2020-08-30] MEDS ORDERED: NA CHLORIDE 0.9% 250 ML ONE (14:27)
[2020-08-30] MEDS ORDERED: CEFEPIME/SWI 1gm 10 ML ONE (14:27)
[2020-08-30 14:28] LABS: Blood Gas Oxyhemoglobin 97.1 % (94-97); Blood O2 Saturation 99.2 % (92-98.5)
[2020-08-30] MEDS ORDERED: SODIUM BICARB 50 MEQ/50ML VIAL ONE (14:28)
[2020-08-30] MEDS ORDERED: WATER FOR INJ,STERILE 10 ML ONE (14:28)
[2020-08-30] MEDS ORDERED: CEFEPIME/SWI 1gm 10 ML IV ONE (14:30)
[2020-08-30] MEDS ORDERED: VECURONIUM 10 MG/VIAL IV ONE ×2 (14:34→17:52)
[2020-08-30] MEDS ORDERED: D50W 25 GM/50 ML SYRINGE IV PRN (14:44)
[2020-08-30] MEDS ORDERED: GLUCAGON 1 MG/VIAL IM PRN (14:44)
--- NOTE | 2020-08-30 14:48 | ER ---
Nurse's Notes [facility] Name: Dontrell Cartwright Jr Age: 75 yrs Sex: Male : 1945 Arrival Date: 08/30/2020 Time: 13:52 Bed 3 Private MD: Diagnosis: Altered mental status, unspecified;Acute respiratory failure;Pneumonia, unspecified organism Presentation: 08/30 13:42 Chief complaint: EMS states: found slumped over on his couch by the spouse/girlfriend, sv she told EMS that he had been like that since this morning. Pt was 64% RA, placed on 100% NRB O2 sat up to 94%. Pt has snoring respirations. Afib-90-124 BP 74/35, BS-382, 20G L hand. 13:42 Coronavirus screen: At this time, unable to obtain information related to travel sv outside the [place] Initial Sepsis Screen: Does the patient meet any 2 criteria? RR > 20 per min. Systolic BP < 90 mmHg. Mean Arterial Pressure (MAP) < 65. Altered Mental Status. HR > 90 bpm. Yes Does the patient have a suspected source of infection? No. Patient's initial sepsis screen is negative. 13:42 Method Of Arrival: EMS: [facility] sv 13:52 Ebola Screen: No symptoms or risks identified at this time. Risk Assessment: Do you jl7 want to hurt yourself or someone else? Unable to obtain. Onset of symptoms was August 30, 2020. 13:52 Acuity: NEREIDA 1 jl7 13:52 Care prior to arrival: IV initiated. 20 GA, in the left hand, Oxygen administered. via jl7 AMBU bag. Historical: - Allergies: 13:56 No Known Allergies; iw - Home Meds: 13:56 Lantus 100 unit/mL Sub-Q soln 100 unit daily [Active]; Victoza 3-Abundio 0.6 mg/0.1 mL (18 iw mg/3 mL) subcutaneous pnij 1.8 mL once daily [Active]; Jardiance 25 mg Oral tab 1 tab once daily [Active]; metoprolol tartrate 100 mg Oral tab 1 tab once daily [Active]; ranolazine oral oral 500 mg daily [Active]; rosuvastatin 10 mg oral tab once daily [Active]; tamsulosin 0.4 mg oral cp24 1 cap once daily [Active]; prasugrel oral oral 10 mg once daily [Active]; nitroglycerin 0.4 mg SL subl 1 tab every 5 minutes for Angina [Active]; Orencia (with maltose) 250 mg intravenous solr every 4 wks [Active]; Vitamin D Oral 2000 mg daily [Active]; Spironolactone Oral once daily [Active]; 15:15 lansoprazole 30 mg Oral cpDR 1 cap nightly [Active]; Bumetanide Oral every other day sv [Active]; Potassium Chloride Oral every other day [Active]; - PMHx: 13:56 Angina; Atrial Fib; Diabetes - IDDM; GERD; Hypertension; Rheumatoid Arthritis; iw - Immunization history:: Adult Immunizations unknown. - Social history:: Smoking status: unknown. Screenin:00 Abuse screen: Denies threats or abuse. Denies injuries from another. Nutritional jl7 screening: No deficits noted. Tuberculosis screening: No symptoms or risk factors identified. Fall Risk IV access (20 points). Total Zhong Fall Scale indicates High Risk Score (45 or more points). Fall prevention measures have been instituted. Side Rails Up X 2 Placed Close to Nursing Station Frequent Obs/Assessments Occuring As available patient and family educated on Fall Prevention Program and Strategies. Assessment: 14:30 General: Appears distressed, Behavior is unresponsive. Pain: Unable to use pain scale. jl7 Patient is unresponsive. Neuro: Pupils are Pupil Size: left pupil approx. 3 mm, right pupil approx. 4 mm, bilateral pupil reactive to light. Cardiovascular: Heart tones present Respiratory: Airway via oral intubation Breath sounds are clear bilaterally. GI: Abdomen is non-distended. Derm: Skin is dry, Skin is dusky, Skin temperature is cool. 15:29 Reassessment: Insulin drip started at 8.9 units/hr. jl7 15:59 Reassessment: Called and spoke with Christina (girlfriend [phone]) to bring POA and sv DNR paperwork. She stated that she would be up here within an hour. 17:45 Reassessment: Christina, pt's girlfriend, at bedside. [facility] 18:32 Reassessment: EMS at bedside to transport pt. 7 Vital Signs: 13:48 BP 67 / 48; Pulse 115; Resp 26; sv 14:00 BP 76 / 55; Pulse 113; Resp 22; Pulse Ox 94% on 60% FiO2 ETT vent; jl7 14:15 BP 113 / 64; Pulse 119; Resp 18; Pulse Ox 100% ; jl7 14:30 BP 103 / 69; Pulse 117; Resp 16; Temp 93.4(C); Pulse Ox 100% ; jl7 14:45 BP 111 / 61; Pulse 113; Resp 14; Temp 93; Pulse Ox 100% ; jl7 15:00 BP 100 / 64; Pulse 108; Resp 14 A; Temp 92.5(C); Pulse Ox 100% on 60% FiO2 ETT vent; jl7 15:08 Weight 89 kg; Height 5 ft. 10 in. (177.80 cm); sv 15:15 BP 75 / 52; Pulse 102; Resp 14; Temp 92.5; Pulse Ox 100% ; jl7 15:30 BP 90 / 57; Pulse 112; Resp 14; Temp 92.6; Pulse Ox 100% ; jl7 15:45 BP 94 / 64; Pulse 116; Resp 14; Temp 92.8; Pulse Ox 100% ; jl7 16:00 BP 85 / 58; Pulse 110; Resp 14 A; Temp 93(C); Pulse Ox 100% on ETT vent; jl7 16:10 BP 94 / 65; Pulse 118; Resp 14; Temp 93.1; Pulse Ox 100% ; jl7 16:20 BP 88 / 66; Pulse 118; Resp 14; Temp 93.1; Pulse Ox 100% ; jl7 16:40 BP 80 / 58; Pulse 120; Resp 14; Temp 93.8; Pulse Ox 100% ; jl7 16:50 BP 95 / 62; Pulse 120; Resp 14; Temp 93.8; Pulse Ox 100% ; jl7 17:00 BP 91 / 72; Pulse 122; Resp 14 A; Temp 94(C); Pulse Ox 100% on 60% FiO2 ETT vent; jl7 17:10 BP 86 / 75; Pulse 122; Resp 14; Temp 94.4; Pulse Ox 100% ; jl7 17:20 BP 94 / 69; Pulse 127; Resp 14; Temp 94.6; Pulse Ox 100% ; jl7 17:30 BP 94 / 69; Pulse 127; Resp 14; Temp 94.6; Pulse Ox 100% ; jl7 17:40 BP 81 / 60; Pulse 125; Resp 14; Temp 94.8; Pulse Ox 100% ; jl7 17:50 BP 87 / 68; Pulse 112; Resp 14; Temp 95.1; Pulse Ox 100% ; jl7 18:00 BP 103 / 69; Pulse 117; Resp 14 A; Temp 95.3(C); Pulse Ox 100% on 60% FiO2 ETT vent; jl7 15:08 Body Mass Index 28.15 (89.00 kg, 177.80 cm) sv ED Course: 13:42 patient observer on. Pulse ox on. NIBP on. sv 13:45 Inserted saline lock: 20 gauge in right antecubital area, using aseptic technique. sv ,using aseptic technique. done by [employer] Blood collected. 13:51 Assisted provider with intubation using 7.5 mm ETT via oral route. ET tube secured at sv 25cm at the teeth. Set up intubation tray. Intubated by Vlad Chua MD Placement verified by CO2 detector w/ + color change, auscultating bilateral breath sounds, CXR, Patient tolerated well. 13:52 Patient arrived in ED. sv 13:52 Arm band placed on right wrist. jl7 13:55 Patient has correct armband on for positive identification. sv 14:00 NGT: inserted 12 Fr. other orally verified placement of air over stomach, verified sv return of gastric contents, to intermittent suction. Returned bile. Patient tolerated poorly, done by Phyllis JOEL. 14:09 Phyllis Herring RN is Primary Nurse. jl7 14:10 Assisted provider with central line placement. Set up central line tray. Triple lumen sv line placed in right femoral. Line placed by Vlad Chua MD Placement verified by blood return, Dressed with Tegaderm, Patient tolerated poorly. Before procedure, did Practitioner(s) obtain informed consent? No. Patient \T\ family education about procedure, CLABSI prevention and S/S of infection? No. Time-out/Briefing performed prior to start of procedure? Yes. Was handwashing/sanitizing done immediately prior to procedure? Yes. Was patient positioned to in a way to prevent air embolism? Yes. Was procedure site sterilized? Yes, with chlorhexidine. Was the site allowed to dry? Yes. Was local anesthetic and/or sedation utilized? Yes. During the procedure, did the Practitioner(s) maintain a sterile field? Yes. Were unused ports clamped during insertion? Yes. Was a 2nd qualified MD obtained after 3 unsuccessful insertion attempts? Yes. Was blood aspirated from each lumen? Yes. After the procedure, did the Practitioner(s) clean the site and apply a sterile dressing? Yes. 14:11 Triage completed. jl7 14:35 Speci-cath kit inserted, using sterile technique, 16 Fr., specimen obtained. returned jl7 cloudy urine. Patient tolerated unresponsive. 14:41 Notified ED physician of a critical lab result(s). lactate-7.1. sv 14:43 Vlad Chua MD is Attending Physician. kdr 14:45 Head Brain Wo Cont CT In Process Unspecified. EDMS 14:47 Robi Perez MD is Hospitalizing Provider. kdr 15:00 COVID swab sent to lab. sv 15:21 Chest Single View XRAY In Process Unspecified. EDMS 15:41 Notified ED physician of a critical lab result(s). CO2-6, glucose-445, amylase-395. sv 16:05 initiated transfer to [facility] not taking transfers due to no capacity. bd [facility] billing and insurance coordinator trying [facility]. 16:47 Chest Abd Pelvis Wo Con In Process Unspecified. EDMS 17:46 Patient transferred, IV remains in place. intact, No redness/swelling at site. jl7 18:36 Attending Physician role handed off by Vlad Chua MD jl7 20:[address] abd/pelvis resukts to [facility] nurse Laurie. meza Administered Medications: 13:43 Drug: NS 0.9% (30 ml/kg) 30 ml/kg Route: IV; Rate: bolus; Site: left hand; sv 15:45 Follow up: Response: No adverse reaction; IV Status: Completed infusion; IV Intake: jl7 3000ml 14:11 Drug: Levophed (4 mg/250 mL D5W 4 mcg/min {Note: started at 10 mcg/min.} Route: IV; sv Rate: calculated rate; Site: right femoral; 15:20 Follow up: Rate change 12.5 mcg/min jl7 16:00 Follow up: Rate change 15 mcg/min jl7 16:40 Follow up: Rate change 17.5 mcg/min jl7 17:43 Follow up: Rate change 20 mcg/min jl7 18:35 Follow up: IV Status: Infusion continued upon transfer jl7 14:21 Drug: VecuroNIUM 10 mg Route: IVP; Site: right femoral; sv 14:30 Follow up: Response: No adverse reaction; Marked relief of symptoms jl7 14:21 Drug: vancoMYCIN 1 grams Route: IVPB; Infused Over: 2 hrs; Site: right femoral; sv 16:20 Follow up: Response: No adverse reaction; IV Status: Completed infusion jl7 14:27 Drug: Cefepime 2 grams Route: IVPB; Rate: 200 ml/hr; Infused Over: 30 mins; Site: right sv femoral; 14:35 Follow up: Response: No adverse reaction; IV Status: Completed infusion jl7 15:29 Drug: Insulin Drip - (Insulin Regular Human 100 units, NS 0.9% 100 ml) {Co-Signature: jl7 bp (Mann Kwong RN).} Route: IV; Rate: calculated rate; Site: right antecubital; 17:03 Follow up: Rate change 10 units/hr jl7 17:44 Follow up: Rate change 11 units/hr jl7 18:35 Follow up: IV Status: Infusion continued upon transfer jl7 17:40 Drug: VecuroNIUM 10 mg Route: IVP; Site: right antecubital; jl7 17:45 Follow up: Response: No adverse reaction; Marked relief of symptoms jl7 Intake: 15:45 IV: 3000ml; Total: 3000ml. jl7 Outcome: 14:48 Decision to Hospitalize by Provider. kdr 16:45 ER care complete, transfer ordered by . kdr 18:36 Transferred by ground EMS to other acute care facility: [facility]. Transfer form jl7 completed. 18:36 critical 18:36 Discharge instructions given to significant other, Instructed on the need for transfer, Demonstrated understanding of instructions. 18:36 Patient left the ED. jl7 18:38 Patient left the ED. jl7 Signatures: Dispatcher [employer] Rere Ruiz Stephanie, RN RN sv Rittger, Kevin, MD MD kdr Williams, Irene, RN RN iw Leal, Jahala, RN RN jlMeenu Hearn5 Mann Kwong RN bp Corrections: (The following items were deleted from the chart) 14:58 14:21 Cefepime 2 grams IVPB at 200 ml/hr in right femoral over 30 mins sv 15:09 13:42 Chief complaint: EMS states: found slumped over on his couch by the sv spouse/girlfriend, she told EMS that he had been like that since this morning. Pt was 64% RA, placed on 10)% NRB O2 sat up to 94%. Afib-90-124 BP 74/35, BS-382, 20G L hand. sv 15:16 13:56 Home Meds: lansoprazole 30 mg Oral cpDR 1 cap once daily; sv 15:16 13:56 Home Meds: Bumetanide Oral once daily; sv 15:16 13:56 Home Meds: Potassium Chloride Oral; [facility] 15: 13:42 Chief complaint: EMS states: found slumped over on his couch by the sv spouse/girlfriend, she told EMS that he had been like that since this morning. Pt was 64% RA, placed on 100% NRB O2 sat up to 94%. Afib-90-124 BP 74/35, BS-382, 20G L hand. sv 16:01 15:59 Reassessment: Called and spoke with Christina (girlfriend) to bring POA and DNR sv paperwork. She stated that she would be up here within an hour. sv
--- NOTE | 2020-08-30 14:48 | EDPHYS ---
Physician Documentation [facility] Name: Dontrell Cartwright Jr Age: 75 yrs Sex: Male : 1945 Arrival Date: 08/30/2020 Time: 13:52 Bed 3 Private MD: ED Physician HPI: 08/31 13:37 This 75 yrs old Male presents to ER via EMS with complaints of Respiratory kdr Distress \T\ AMS. 13:37 The patient presents with decreased mental status, decreased responsiveness. Onset: The kdr symptoms/episode began/occurred gradually, this morning. Possible causes: CVA or TIA, sepsis. Associated signs and symptoms: The patient has no apparent associated signs or symptoms. Current symptoms: In the emergency department the patient's symptoms have worsened. Patient's baseline: Neuro: alert and fully oriented, Motor: no deficits, Ambulation: walks without assistance, Speech: normal for age. The patient has not experienced similar symptoms in the past. The patient has not recently seen a physician. Friend states that the patient has been declining in mental status this morning and became poorly responsive at which time she called EMS at about 11:00. He has not had this before and has not and any recent changes to account for any possible change such as this. Historical: - Allergies: 08/30 13:56 No Known Allergies; iw - Home Meds: 13:56 Lantus 100 unit/mL Sub-Q soln 100 unit daily [Active]; Victoza 3-Abundio 0.6 mg/0.1 mL (18 iw mg/3 mL) subcutaneous pnij 1.8 mL once daily [Active]; Jardiance 25 mg Oral tab 1 tab once daily [Active]; metoprolol tartrate 100 mg Oral tab 1 tab once daily [Active]; ranolazine oral oral 500 mg daily [Active]; rosuvastatin 10 mg oral tab once daily [Active]; tamsulosin 0.4 mg oral cp24 1 cap once daily [Active]; prasugrel oral oral 10 mg once daily [Active]; nitroglycerin 0.4 mg SL subl 1 tab every 5 minutes for Angina [Active]; Orencia (with maltose) 250 mg intravenous solr every 4 wks [Active]; Vitamin D Oral 2000 mg daily [Active]; Spironolactone Oral once daily [Active]; 15:15 lansoprazole 30 mg Oral cpDR 1 cap nightly [Active]; Bumetanide Oral every other day sv [Active]; Potassium Chloride Oral every other day [Active]; - PMHx: 13:56 Angina; Atrial Fib; Diabetes - IDDM; GERD; Hypertension; Rheumatoid Arthritis; iw - Immunization history:: Adult Immunizations unknown. - Social history:: Smoking status: unknown. ROS: 08/31 13:37 Constitutional: Negative for fever, chills, and weight loss. kdr Unable to obtain ROS due to altered mental status, obtunded state. Exam: 13:37 Constitutional: This is a well developed, well nourished patient who obtunded and kdr without gag reflex Head/Face: Normocephalic, atraumatic. Neck: Trachea midline, no thyromegaly or masses palpated, and no cervical lymphadenopathy. Supple, full range of motion without nuchal rigidity, or vertebral point tenderness. No Meningismus. Chest/axilla: Normal chest wall appearance and motion. Nontender with no deformity. No lesions are appreciated. Cardiovascular: Regular rate and rhythm with a normal S1 and S2. No gallops, murmurs, or rubs. Normal PMI, no JVD. No pulse deficits. Abdomen/GI: Soft, non-tender, with normal bowel sounds. No distension or tympany. No guarding or rebound. No evidence of tenderness throughout. Back: No spinal tenderness. No costovertebral tenderness. Full range of motion. Skin: Warm, dry with normal turgor. Normal color with no rashes, no lesions, and no evidence of cellulitis. MS/ Extremity: Pulses equal, no cyanosis. Neurovascular intact. Full, normal range of motion. 13:37 Respiratory: the patient does not display signs of respiratory distress, Respirations: shallow respirations, that is moderate, Breath sounds: rales, that are mild, are scattered. Vital Signs: 08/30 13:48 BP 67 / 48; Pulse 115; Resp 26; sv 14:00 BP 76 / 55; Pulse 113; Resp 22; Pulse Ox 94% on 60% FiO2 ETT vent; jl7 14:15 BP 113 / 64; Pulse 119; Resp 18; Pulse Ox 100% ; jl7 14:30 BP 103 / 69; Pulse 117; Resp 16; Temp 93.4(C); Pulse Ox 100% ; jl7 14:45 BP 111 / 61; Pulse 113; Resp 14; Temp 93; Pulse Ox 100% ; jl7 15:00 BP 100 / 64; Pulse 108; Resp 14 A; Temp 92.5(C); Pulse Ox 100% on 60% FiO2 ETT vent; jl7 15:08 Weight 89 kg; Height 5 ft. 10 in. (177.80 cm); sv 15:15 BP 75 / 52; Pulse 102; Resp 14; Temp 92.5; Pulse Ox 100% ; jl7 15:30 BP 90 / 57; Pulse 112; Resp 14; Temp 92.6; Pulse Ox 100% ; jl7 15:45 BP 94 / 64; Pulse 116; Resp 14; Temp 92.8; Pulse Ox 100% ; jl7 16:00 BP 85 / 58; Pulse 110; Resp 14 A; Temp 93(C); Pulse Ox 100% on ETT vent; jl7 16:10 BP 94 / 65; Pulse 118; Resp 14; Temp 93.1; Pulse Ox 100% ; jl7 16:20 BP 88 / 66; Pulse 118; Resp 14; Temp 93.1; Pulse Ox 100% ; jl7 16:40 BP 80 / 58; Pulse 120; Resp 14; Temp 93.8; Pulse Ox 100% ; jl7 16:50 BP 95 / 62; Pulse 120; Resp 14; Temp 93.8; Pulse Ox 100% ; jl7 17:00 BP 91 / 72; Pulse 122; Resp 14 A; Temp 94(C); Pulse Ox 100% on 60% FiO2 ETT vent; jl7 17:10 BP 86 / 75; Pulse 122; Resp 14; Temp 94.4; Pulse Ox 100% ; jl7 17:20 BP 94 / 69; Pulse 127; Resp 14; Temp 94.6; Pulse Ox 100% ; jl7 17:30 BP 94 / 69; Pulse 127; Resp 14; Temp 94.6; Pulse Ox 100% ; jl7 17:40 BP 81 / 60; Pulse 125; Resp 14; Temp 94.8; Pulse Ox 100% ; jl7 17:50 BP 87 / 68; Pulse 112; Resp 14; Temp 95.1; Pulse Ox 100% ; jl7 18:00 BP 103 / 69; Pulse 117; Resp 14 A; Temp 95.3(C); Pulse Ox 100% on 60% FiO2 ETT vent; jl7 15:08 Body Mass Index 28.15 (89.00 kg, 177.80 cm) sv Procedures: 08/31 13:44 Intubation: Ventilated with 100% NRB prior to procedure. Intubated orally using kdr Glidescope with 7.5 mm ETT. Successful on second attempt. Ventilated with Ambu bag. Tube secured with ETT brown at center of mouth measured 25 cm at teeth. Placement verified by CXR, CO2 detector with (+) color change, auscultating bilateral breath sounds, O2 saturation after procedure was 95 %. Central Line: the site was prepped with Betadine, a triple lumen catheter was inserted, in the right femoral vein, in 1 attempts. placement was verified, by blood return, the site was dressed with Tegaderm, using sterile technique, the patient tolerated the procedure, well. MDM: 08/30 14:48 Patient medically screened. kdr 08/31 13:37 Data reviewed: vital signs, nurses notes, lab test result(s), radiologic studies. kdr Counseling: I had a detailed discussion with the patient and/or guardian regarding: the historical points, exam findings, and any diagnostic results supporting the discharge/admit diagnosis, lab results, radiology results, the need to transfer to another facility. 08/30 14:07 Order name: Lactate; Complete Time: 14:45 bd 08/30 14:27 Order name: Glucose, Ancillary Testing; Complete Time: 14:45 EDMS 08/30 14:27 Order name: ABG Arterial Blood Gas; Complete Time: 14:45 EDMS 08/30 14:42 Order name: Amylase, Serum; Complete Time: 15:54 sv 08/30 14:42 Order name: Basic Metabolic Panel; Complete Time: 15:54 sv 08/30 14:42 Order name: Blood Culture Adult (2) sv 08/30 14:42 Order name: CBC with Diff; Complete Time: 15:21 sv 08/30 14:42 Order name: Ckmb; Complete Time: 15:54 sv 08/30 14:42 Order name: CPK; Complete Time: 15:54 sv 08/30 14:42 Order name: LFT's; Complete Time: 15:54 sv 08/30 14:42 Order name: Lipase; Complete Time: 15:54 sv 08/30 14:42 Order name: Procalcitonin; Complete Time: 16:06 sv 08/30 14:42 Order name: Protime (+inr); Complete Time: 15:21 sv 08/30 14:42 Order name: Ptt, Activated; Complete Time: 15:21 sv 08/30 14:27 Order name: Head Brain Wo Cont CT; Complete Time: 15:21 bd 08/30 14:42 Order name: Troponin (emerg Dept Use Only); Complete Time: 15:54 sv 08/30 14:42 Order name: Urine Microscopic Only; Complete Time: 16:06 sv 08/30 14:42 Order name: Chest Single View XRAY; Complete Time: 15:41 sv 08/30 15:14 Order name: Urine Dipstick--Ancillary (enter results); Complete Time: 16:49 bd 08/30 15:34 Order name: Glucose, Ancillary Testing; Complete Time: 15:41 EDMS 08/30 16:03 Order name: Urine Culture EDOH 08/30 16:04 Order name: Chest Abd Pelvis Wo Con; Complete Time: 18:03 EDMS 08/30 16:11 Order name: COVID-19 sv 08/30 16:37 Order name: SARS-COV-2 RT PCR; Complete Time: 16:49 EDMS 08/30 17:03 Order name: Glucose, Ancillary Testing; Complete Time: 18:03 EDMS 08/30 17:27 Order name: Lactate Sepsis 2 HR Follow-up; Complete Time: 18:03 EDMS 08/30 17:55 Order name: Glucose, Ancillary Testing; Complete Time: 18:03 EDMS 08/30 14:42 Order name: Accucheck; Complete Time: 15:11 sv 08/30 14:42 Order name: Cardiac monitoring; Complete Time: 15: sv 08/30 14:42 Order name: EKG - Nurse/Tech; Complete Time: 15: sv 08/30 14:42 Order name: IV Saline Lock - Large Bore; Complete Time: 15: sv 08/30 14:42 Order name: Labs collected and sent; Complete Time: 15: sv 08/30 14:42 Order name: O2 Per Protocol; Complete Time: 15: sv 08/30 14:42 Order name: O2 Sat Monitoring; Complete Time: 15: sv 08/30 14:42 Order name: Urine Dipstick-Ancillary (obtain specimen); Complete Time: 15:10 sv Administered Medications: 08/30 13:43 Drug: NS 0.9% (30 ml/kg) 30 ml/kg Route: IV; Rate: bolus; Site: left hand; sv 15:45 Follow up: Response: No adverse reaction; IV Status: Completed infusion; IV Intake: jl7 3000ml 14:11 Drug: Levophed (4 mg/250 mL D5W 4 mcg/min {Note: started at 10 mcg/min.} Route: IV; sv Rate: calculated rate; Site: right femoral; 15:20 Follow up: Rate change 12.5 mcg/min jl7 16:00 Follow up: Rate change 15 mcg/min jl7 16:40 Follow up: Rate change 17.5 mcg/min jl7 17:43 Follow up: Rate change 20 mcg/min jl7 18:35 Follow up: IV Status: Infusion continued upon transfer jl7 14:21 Drug: VecuroNIUM 10 mg Route: IVP; Site: right femoral; sv 14:30 Follow up: Response: No adverse reaction; Marked relief of symptoms jl7 14:21 Drug: vancoMYCIN 1 grams Route: IVPB; Infused Over: 2 hrs; Site: right femoral; sv 16:20 Follow up: Response: No adverse reaction; IV Status: Completed infusion jl7 14:27 Drug: Cefepime 2 grams Route: IVPB; Rate: 200 ml/hr; Infused Over: 30 mins; Site: right sv femoral; 14:35 Follow up: Response: No adverse reaction; IV Status: Completed infusion jl7 15:29 Drug: Insulin Drip - (Insulin Regular Human 100 units, NS 0.9% 100 ml) {Co-Signature: [facility] bp (Mann Kwong RN).} Route: IV; Rate: calculated rate; Site: right antecubital; 17:03 Follow up: Rate change 10 units/hr jl7 17:44 Follow up: Rate change 11 units/hr jl7 18:35 Follow up: IV Status: Infusion continued upon transfer jl7 17:40 Drug: VecuroNIUM 10 mg Route: IVP; Site: right antecubital; jl7 17:45 Follow up: Response: No adverse reaction; Marked relief of symptoms jl7 Disposition: 08/31 13:37 Critical Care:. kdr Disposition: 12/22/20 16:45 Transfer ordered to Other Acute Care Facility. Diagnosis are Altered mental status, unspecified, Acute respiratory failure, Pneumonia, unspecified organism. - Reason for transfer: Higher level of care. - Accepting physician is Dr. Skaggs. - Condition is Critical. - Problem is new. - Symptoms are unchanged. Critical care time excluding procedures: 13:37 Critical care time: Bedside Care: 45 minutes, Consultation: 15 minutes, Family kdr Intervention: 10 minutes. Total time: 70 minutes Signatures: Dispatcher [employer] EDOH Sadie Mejia RN RN sv Vlad Chua MD MD kdr Arianna Rincon RN RN iw Phyllis Herring RN RN jl7 Mann Kwong RN bp Corrections: (The following items were deleted from the chart) 08/30 15:16 13:56 Home Meds: lansoprazole 30 mg Oral cpDR 1 cap once daily; sv 15:16 13:56 Home Meds: Bumetanide Oral once daily; sv 15:16 13:56 Home Meds: Potassium Chloride Oral; sv 16:04 15:57 Chest Abdomen Pelvis W Con+CT.RAD.BRZ ordered. EDOH EDOH 16:41 14:48 Hospitalization Ordered by Robi Perez MD for Inpatient Admission. Preliminary kdr diagnosis is Altered mental status, unspecified. Bed requested for Intensive Care Unit. Status is Inpatient Admission. Condition is Critical. Problem is new. Symptoms have improved. kdr 18:36 16:45 08/30/2020 16:45 Transfer ordered to Other Acute Care Facility. Diagnosis is jl7 Altered mental status, unspecified; Acute respiratory failure; Pneumonia, unspecified organism. Reason for transfer: Higher level of care. Accepting physician is Dr. Skaggs. Condition is Critical. Problem is new. Symptoms are unchanged. kdr 18:38 18:36 08/30/2020 16:45 Transfer ordered to Other Acute Care Facility. Diagnosis is jl7 Altered mental status, unspecified; Acute respiratory failure; Pneumonia, unspecified organism. Reason for transfer: Higher level of care. Accepting physician is Dr. Skaggs. Condition is Critical. Problem is new. Symptoms are unchanged. jl7
[2020-08-30] MEDS ORDERED: INSULIN -REGULAR HUMAN 100 UNIT in NA CHLORIDE 0.9% 100 ML IV SCH (15:00)
[2020-08-30 15:08] LABS: Absolute Lymphocytes (CBC) 1.4 K/uL (0.7-4.9); Basophils % 0.3 % (0-1.3); Hematocrit 46.4 % (39.6-49.0); Lymphocytes % 8.8 % (15.3-44.8); MPV 9.5 fL (7.6-11.3); RBC Red Blood Cell Count 4.68 M/uL (4.33-5.43)
[2020-08-30 15:13] LABS: Protime INR 0.96
--- NOTE | 2020-08-30 15:19 | RAD REPORT ---
EXAM DESCRIPTION: CT - Head Brain Wo Cont - 08/30/2020 2:44 pm CLINICAL HISTORY: unresponsive COMPARISON: No comparisons TECHNIQUE: Axial 5 mm thick images of the head were obtained without IV contrast. All CT scans are performed using dose optimization technique as appropriate and may include automated exposure control or mA/KV adjustment according to patient size. FINDINGS: No intracranial hemorrhage, mass, edema or shift of mid-line structures. No acute infarcti on changes seen. Moderate atrophy present with ventricles in proportion. Chronic ischemic changes are mild. Dense arterial tree calcifications present. Mastoid air cells and visualized portions of the paranasal sinuses are clear. No acute bony findings. IMPRESSION: No hemorrhage, edema or acute intracranial finding. Moderate atrophy with mild chronic ischemic change.
[2020-08-30 15:34] LABS: Albumin 4.1 g/dL (3.4-5.0); Bilirubin Direct 0.2 mg/dL (0-0.2); Bilirubin Total 0.7 mg/dL (0.2-1.0); CKMB Creatine Kinase MB 2.4 ng/mL (0.3-3.6); Potassium 5.2 mmol/L (3.5-5.1); Protein, Total 8.1 g/dL (6.4-8.2); Troponin (Emerg Dept Use Only) 0.03 ng/mL (0.0-0.045)
--- NOTE | 2020-08-30 15:39 | RAD REPORT ---
EXAM DESCRIPTION: RAD - Chest Single View - 08/30/2020 3:29 pm CLINICAL HISTORY: unresponsive COMPARISON: May 20, 2020 TECHNIQUE: AP portable chest image was obtained 08/30/2020 3:29 pm . FINDINGS: Endotracheal tube is in place with the tip mid aortic arch level. NG tube is in the proxim al stomach. Lung volumes are low. No dense mass, consolidation or diffuse pulmonary edema. Lung base and infrahilar markings are increased. This could potentially all be explained by low lung volumes. P atchy medial lung base infiltrates cannot be excluded. Heart size is normal. Pulmonary vasculature within normal limits. No measurable pleural effusion and no pneumothorax. No acute bony abnormality seen. No acute aortic findings suspected. IMPRESSION: ET tube and NG tube in good position. Low lung volumes supine study shows bilateral medial lung base opacification mostly or entirely atele ctasis. Mild infectious or aspiration infiltrates cannot be excluded.
[2020-08-30 16:02] LABS: Urine Bacteria >50 /HPF (NONE SEEN); Urine Mucus 3+ /HPF (NONE SEEN)
[2020-08-30 16:15] LABS: Urine Blood 1+ (NEG); Urine Glucose 2+ (NEG); Urine Protein 2+ (NEG); Urine pH 5.5 (5.0-7.0)
--- NOTE | 2020-08-30 17:09 | RAD REPORT ---
EXAM DESCRIPTION: CT - Chest Abd Pelvis Wo Con - 08/30/2020 4:47 pm CLINICAL HISTORY: AMS, unresponsive, hypotensive COMPARISON: Chest For Pe Angio dated 12/11/2019; Stone Protocol dated 05/20/2020 TECHNIQUE: During dynamic enhancement using 100 milliliters nonionic IV contrast, axial 5 millimeter thick images of the chest, abdomen and pelvis were obtained. Biphasic technique was utilized through the abdomen. Oral contrast was administered. All CT scans are performed using dose optimization technique as appropriate and may include automated exposure control or mA/KV adjustment according to patient size. FINDINGS: Interstitial and minimal alveolar opacities are present in each posterior gutter with trac e amount of pleural fluid on the right. Pattern is more typical for atelectasis rather than a less li antonio infectious or aspiration pneumonia. There are no ground-glass opacities that are typically assoc iated with the COVID-19 infection. No large mass or consolidation. No pneumothorax or pleural effusio n. No chest wall mass or abnormal axillary lymphadenopathy seen. Mediastinal and hilar regions show no mass or lymphadenopathy. No significant cardiac finding. Endotracheal tube is in good position with the tip mid aortic arch. NG tube extends into stomach. Liver shows diffuse fatty infiltration with no acute finding. No splenomegaly or focal splenic findin g. No solid or cystic mass of the pancreas. Trace amount of stranding is present in the peripancreati c fat. It is not definitive for pancreatitis and needs correlation with lab findings. Gallbladder and biliary tree are normal. No hydronephrosis of either kidney. Stranding in the perinephric fat has not change from prior imagin g. The multiple mixed density masses of the kidneys have not changed. These are all believed to be si mple or mildly complex cysts. Aggressive mass of the kidneys not excluded but unlikely. No adrenal ab normalities. Urinary bladder is contracted around a Hand catheter. No dilated bowel loops or focal ball bowel wall thickening. No free air, free fluid or inflammatory stranding. No hernia, mass or bulky lymphadenopathy. Disc and bony degenerative changes are present. Advanced hip joint degenerative change noted on the r ight. Severe lower lumbar facet joint degenerative change present. No pathologic bone finding seen. Dense arterial tree calcifications are present. IMPRESSION: Bilateral posterior lung base lung parenchymal opacification favored to be atelectasis r ather than the lesser likely infectious or aspiration pneumonia. Chest findings are not suspicious fo r COVID-19 infection. Trace amount of stranding around the pancreatic parenchyma noted. This is not definitive for pancreat itis but can be correlated with clinical and laboratory findings. Additional nonacute findings detailed in the body of the report.
[2020-08-31 10:39] VITALS: O2SAT 100
[2020-08-31 11:02] VITALS: BP 103/69; TEMP 95.3
== END 2020-08-30 18:38 ==
LOC: ER 13:47
PROC: 0BH17EZ Insertion of Endotracheal Airway into Trachea, Via Natural or Artificial Opening (ICD-10-PCS; principal; 2020-08-30)
PROC: 5A1935Z Respiratory Ventilation, Less than 24 Consecutive Hours (ICD-10-PCS; 2020-08-30)
PROC: 06HT33Z Insertion of Infusion Device into Right Foot Vein, Percutaneous Approach (ICD-10-PCS; 2020-08-30)
DX: J96.00 Acute respiratory failure, unspecified whether with hypoxia or hypercapnia (principal); J18.9 Pneumonia, unspecified organism; Z20.828 Contact with and (suspected) exposure to other viral communicable diseases; I10 Essential (primary) hypertension; E11.9 Type 2 diabetes mellitus without complications; I48.91 Unspecified atrial fibrillation; Z79.4 Long term (current) use of insulin
CPT/HCPCS: 93005; 87040 ×2; 87088; 85025; 87086; 80048; 36415; 82150; 82550; 85610; 82947 ×4; 80076; 83605 ×2; 85730; 84484; 82553; 83690; 84145; 70450; 71250; 74176; 71045; 82805; 31500; 99291; 99292; 94002; 36556; U0003; J3370; J0692 ×2; J7050; J7030 ×2; 81003; 81015

== ENCOUNTER 2021-11-06 09:32 | Inpatient (IN) | payer OTHER ==
[2021-11-06] MEDS ORDERED: NA CHLORIDE 0.9% 1,000 ML ONE ×3 (09:36→10:44)
[2021-11-06 09:47] LABS: Arterial Blood Carboxyhemoglob 1.2 % (0-1.5); Blood Gas Oxyhemoglobin 95.8 % (94-97); Blood O2 Saturation 98.3 % (92-98.5)
[2021-11-06 09:52] LABS: Absolute Lymphocytes (CBC) 1.5 K/uL (0.7-4.9); Hematocrit 48.5 % (39.6-49.0); Lymphocytes % 8.6 % (15.3-44.8); MPV 8.5 fL (7.6-11.3); RBC Red Blood Cell Count 4.59 M/uL (4.33-5.43)
[2021-11-06] MEDS ORDERED: CEFTRIAXONE 1000 MG/VIAL ONE (09:52)
[2021-11-06 10:03] LABS: Protime INR 1.04
--- OUTSIDE RECORDS SUMMARY | 2021-11-06 10:07 | XMS REPORT | Continuity of Care Document ---
:1945 [facility] Organization [facility] t Address [address] [place] [address] Care Team Providers Name Role Phone Asked, Pcp Primary Care Physician Unavailable Sandee MOLINA Attending Clinician Unavailable Jason Hernandez Attending Clinician Unavailable [email or web address] Attending Clinician Unavailable Adrien Attending Clinician [phone] Tatianna Stevens MD Attending Clinician Srinivas Attending Clinician Darrell Huang NP Attending Clinician Provider Attending Clinician Unavailable Rodney Gordon DPM Attending Clinician Ritesh Gruber MD Attending Clinician Tamia Attending Clinician Unavailable BERYL MOLINA Attending Clinician Unavailable ROBINSON KING Attending Clinician Unavailable GISELLE Attending Clinician Unavailable LISETTE GARDNER Attending Clinician Unavailable Sandee MOLINA Admitting Clinician Unavailable Physician, Primary or Family Admitting Clinician UnavailJason Hammond Admitting Clinician Unavailable [email or web address] Admitting Clinician Unavailable JANINA Admitting Clinician Unavailable AZRA VERDE Admitting Clinician Unavailable SALLY GARDNERKARINA Admitting Clinician Unavailable Payers Payer Name Policy Type Policy Number Effective Date Expiration Date S jana MEDICARE A B [id number] 2009 00:00:00 [employer] INDEMNITY [id number] 2016 00:00:00 MEDICARE B-[place]: [id number] 2009 [employer] 00:00:00 [employer] (MEDICARE [id number] SUPPLEMENT) CDC REVIEW [id number] 2020 00:00:00 Problems Condition Condition Condition Status Onset Resolution Last Treating Co mments Source Name Details Category Date Date Treatment Clinician Date Preop Preop Disease Active [facility] testing testing [facility]-12 [facility] 00:00: Hospita 00 l Coronary Coronary Disease Active [facility] artery artery [facility] - disease disease 00:00: Medical involving involving 00 [facility] [place] [facility] without without angina angina pectoris, pectoris, unspecifie unspecifie d vessel d vessel or lesion or lesion type type CAD, CAD, Disease Active [facility] vessel [facility] No known No known Disease [facility] active active [place] problems problems of Medicin e Acute Acute Disease Active [facility] respirator respirator [facility] - y y Medical insufficie insufficie Ce nter ncy ncy Acute Acute Disease Active [facility] blood loss blood loss [facility] anemia [facility] Hyperglyce Hyperglyce Disease Active C [facility] Allergies, Adverse Reactions, Alerts Allergy Allergy Status Severity Reaction(s) Onset Inactive Treating Comm ents Source Name Type Date Date Clinician No Known DA Active U 2019-09 [facility] Allergie [facility]-22 Clear s 00:00: Horowitz 00 [facility] No Known DA Active U 2019-09 [facility] Allergie 2-22 Clear s 00:00: Horowitz [address] [place] [address] NO KNOWN Allergy Active [facility] Family History Family Member Diagnosis Comments Start Date Stop Date Source Natural father Heart disease [facility] Natural mother Heart disease [facility] Social History Social Habit Start Date Stop Date Quantity Comments Source History of tobacco Smoker [facility] use of Medicine History SDOH [facility] Alcohol Frequency Hospita l History SDOH [facility] Alcohol Std Drinks Hospit al History SDOH [facility] Alcohol [facility] Alcohol intake 2021-04-12 2021-04-12 Current drinker [facility] 00:00:00 00:00:00 of alcohol Hospital (finding) Alcohol Comment 2021-04-12 2021-04-12 2-4 drinks per [facility] 00:00:00 00:00:00 night Hospital Tobacco use and 2021-04-05 2021-04-05 Smokeless tobacco [facility] exposure 00:00:00 00:00:00 non-user Hospital Tobacco Comment 2021-04-05 2021-04-05 quit 1978 [facility] 00:00:00 [facility]:00 Hospital Cigarettes smoked 2020-11-19 2020-11-19 [facility] current (pack per 00:00:00 00:00:00 of [facility] day) - Reported Cigarette 2020-11-19 2020-11-19 [facility] pack-years 00:00:00 00:00:00 of Medicine Sex Ass[birth year] [facility] 00:00:00 00:[facility]:00 Hospital Smoking Status Start Date Stop Date Source Former smoker 2020-11-19 00:00:00 2020-11-19 00:00:00 [facility] amado [facility] Medications Ordered Filled Start Stop Current Ordering Indication Dosage Frequency Signature Comments Components Source Medication Medication Date Date Medication? Clinician (SIG) Name Name cholecalcif Yes 1000U QD Take 1,000 [facility] cooper, 8-[address] vitamin D3, 13:40: mouth Hospi ta 1,000 unit 04 daily. l tablet B complex Yes QD Take by Metho di with C 8-[address] 20-folic 13:40: daily. Hospita acid 1 mg 04 l capsule aspirin Yes 81mg QD Take 81 mg Meth [facility] (ECOTRIN) 8-[address] 81 MG 13:40: daily. Hospita enteric 04 l coated tablet ranolazine Yes 500mg Q.5D Take 500 Me thodi (RANEXA) 8-[address] 500 MG 12 13:40: mouth 2 Hospi ta hr ER 04 (two) l tablet times a day. apixaban 2021-0 Yes Q.5D Take by Method i (ELIQUIS) 5 -[address] mg tablet 13:40: (two) Hospita 04 times a l day. rosuvastati Yes 10mg QD Take 10 mg Methodi n (CRESTOR) 8-[address] 10 mg 13:40: daily. Hospita tablet 04 l BUMETanide Yes .5mg QD Take 0.5 Met hodi (BUMEX) 0.5 8-[address] MG tablet 13:40: mouth Hospita 04 daily. l tamsulosin Yes .4mg QD Take 0.4 Met hodi (FLOMAX) 8-[address] 0.4 mg 13:40: mouth Hospita capsule 04 daily with l dinner. insulin Yes QD Inject Methodi GLARGINE 04-[address] (LANTUS) 13:40: skin Hospita 100 unit/mL 04 nightly. l injection (vial) liraglutide Yes 1.8U/[o Inject 1.8 Methodi (VICTOZA 04-14 z_av]/d Units/oz/d st 2-CAR SUBQ) 13:40: ay under Ho spita 04 the skin. l vit B Yes Take by Methodi complex 04-[address] no.12/niaci 13:40: Hospit a n,B3, 04 l (VITAMIN B COMPLEX NO.12-NIACI N ORAL) empaglifloz Yes 25mg QD Take 25 mg Methodi in 04-[address] (Jardiance) 13:40: daily. Hosp ann 25 mg 04 l tablet metFORMIN Yes 500mg Q.5D Take 500 Met hodi (GLUCOPHAGE 8-[address] ) 500 mg 13:40: mouth 2 Hospit a tablet 04 (two) l times a day with meals. ferrous Yes 325mg QD Take 325 Metho di sulfate 325 8-[address] (65 FE) MG 13:40: mouth Hospit a tablet 04 daily with l breakfast. lansoprazol Yes 30mg QD Take 30 mg Methodi e 8-[address] (PREVACID) 13:40: daily. Hospi ta 30 MG 04 l capsule levothyroxi Yes 50ug QD Take 50 Met hodi ne sodium 8-[address] (Tirosint) 13:40: mouth Hospit a 50 mcg 04 daily. l capsule metoprolol 2020- No 100mg QD Take 100 M ethodi succinate 04-[address] XL 13:40: 00:00 mouth Hospita (TOPROL-XL) 04 :00 daily. l 100 mg 24 hr tablet spironolact 2020- No 25mg QD Take 25 mg Methodi one 04-[address] (ALDACTONE) 13:40: 00:00 daily. Hos fernando 25 MG 04 :00 l tablet abatacept Infuse Metho di (Orencia, 04-[address] with 13:40: 00:00 venous Hospita maltose,) 04 :00 catheter. l 250 mg Monthly injection metoprolol 2020- No 100mg Q.5D Take 1 Met hodi succinate 04-14- tablet st XL 00:00: 04:59 (100 mg Hospita (TOPROL-XL) 00 :00 total) by l 100 mg 24 mouth 2 hr tablet (two) times a day for 30 days. insulin Yes 100U Inject 100 [facility] or glargine 3-02 Units into Colle ge (LANTUS) 20:15: the skin. of 100 UNIT/ML 29 Medicin injection e irbesartan- Yes 1{tbl} Take 1 Ba ylor hydrochloro 3-02 Tablet by Col rodriguez thiazide 20:15: mouth. of (AVALIDE) 29 Medicin 300-12.5 MG e per tablet Liraglutide Yes Inject [facility] (VICTOZA) 3-02 into the Colleg e 18 MG/3ML 20:15: skin of SOPN 29 daily. Medicin e Metoprolol Yes Take by [place] radha Succinate 3-02 mouth. College 100 MG CS24 20:15: of 29 Medicin e rosuvastati Yes Take by Ba ylor n (CRESTOR) 3-02 mouth. Colleg e 20 MG 20:15: of tablet 29 Medicin e nitroglycer Yes .4mg Place 0.4 B aylor in 3-02 mg under College (NITROSTAT) 20:15: the of 0.4 mg 29 tongue. Medicin sublingual e tablet sodium Yes 500mg Inject 500 [facility] chloride 3-02 mg into College 0.9 % SOLN 20:15: the vein of 100 mL with 29 once. Medicin abatacept e 250 MG SOLR 500 mg VITAMIN D Yes Take by [facility] OR 3-02 mouth. [place] 20:15: of 29 Medicin e insulin Yes 100U Inject 100 [facility] glargine 2-04 Units into Colle ge (LANTUS) 18:20: the skin. of 100 UNIT/ML 51 Medicin injection e irbesartan- Yes 1{tbl} Take 1 Ba y[facility] hydrochloro 2-04 Tablet by Col lege thiazide 18:20: mouth. of (AVALIDE) 51 Medicin 300-12.5 MG e per tablet rosuvastati Yes Take by Ba ylor n (CRESTOR) 2-04 mouth. Colleg e 20 MG 18:20: of tablet 51 Medicin e nitroglycer Yes .4mg Place 0.4 B a[place]or in 2-04 mg under College (NITROSTAT) 18:20: the of 0.4 mg 51 tongue. Medicin sublingual e tablet sodium Yes 500mg Inject 500 [facility] chloride 2-04 mg into [place] 0.9 % SOLN 18:20: the vein of 100 mL with 51 once. Medicin abatacept e 250 MG SOLR 500 mg VITAMIN D Yes Take by [facility] or OR 2-04 mouth. [place] 18:20: of 51 Medicin e Liraglutide Yes Inject [facility] (VICTOZA) 2-04 into the Colleg e 18 MG/3ML 18:19: skin of SOPN 03 daily. Medicin e Metoprolol Yes Take by [place] radha Succinate 2-04 mouth. College 100 MG CS24 18:19: of 03 Medicin e benazepril 2020-0 2020- No 20mg Take 20 mg [facility] (LOTENSIN) 2-04 02-04 by mouth. Col lege 20 MG 18:17: 00:00 of tablet 24 :00 Medicin e ELIQUIS 5 0 Yes [facility] MG TABS 10-11 [place] 00:00: of 00 Medicin e ELIQUIS 5 0 Yes [facility] MG TABS 10-11 [place] 00:00: of 00 Medicin e bumetanide 0 Yes [facility] (BUMEX) 0.5 1-26 College MG tablet 00:00: of Medicin e JARDIANCE 0 Yes Román 25 MG TABS 10-04 [place] 00:00: of 00 Medicin e Tamsulosin Yes Román HCl 0.4 MG 10-04 [place] CAPS 00:00: of 00 Medicin e bumetanide Yes [facility] (BUMEX) 0.5 1-26 College MG tablet 00:00: of 00 Medicin e JARDIANCE Yes Román 25 MG TABS 10-04 [place] 00:00: of 00 Medicin e Tamsulosin Yes Román HCl 0.4 MG 10-04 [facility] 00:00: of 00 Medicin e Ranolazine 2019-09 Yes [facility] 500 MG TB12 10-11 [place] 00:00: of 00 Medicin e lansoprazol 2019-09 Yes [facility] 10-11 [place] (PREVACID) 00:00: of 30 MG 00 Medicin capsule e Ranolazine 2019-09 Yes [facility] 500 MG TB12 10-11 [place] 00:00: of 00 Medicin e lansoprazol 2019-09 Yes [facility] 10-11 [place] (PREVACID) 00:00: of 30 MG 00 Medicin capsule e nitroglycer Yes acute .4mg Place 0.4 [facility] [...] unrelieved 5min after 1st dose . liraglutide Yes type 2 1.8mg QD Inject 1.[address] 0.6 mg/0.1 9-24 diabetes mg [facility] - mL (18 mg/3 12:33: mellitus subcutaneo Medical mL) PnIj 42 usly daily Kim Zambrano rosuvastati Yes atheroscler 20mg QD Take [address] n (CRESTOR) 9-24 otic by mouth Luke s - 40 MG 12:33: cardiovascu daily . Me dical tablet 42 lar disease Center metFORMIN 0 Yes type 2 1000mg Q.5D Take 1,[address] (GLUCOPHAGE 06-02 diabetes mg by Elvira es - -XR) 500 MG 12:33: mellitus mouth 2 Medical 24 hr 42 (two) Center tablet times daily. lansoprazol Yes gastroesoph 30mg QD Take [address] e 9 ageal by mouth [facility] - (PREVACID) 12:33: reflux nightly. M edical 30 MG 42 disease Center capsule insulin Yes type 2 100U QD Inject [address] glargine 06-02 diabetes Units [facility] - (LANTUS) 12:33: mellitus subcutaneo Medical 100 unit/mL 42 usly every Ce nter injection morning Use as directed . benazepriL Yes hypertensio 20mg QD Take [address] (LOTENSIN) 06-02 n by mouth [facility] - 20 MG 12:33: daily. Medical tablet 42 Center empaglifloz Yes 25mg QD Take [address] in - by mouth [facility] - (JARDIANCE) 12:33: daily. Medi radha 25 mg 42 Center tablet abatacept Yes Q28D Inject [facility] (ORENCIA) 9 intravenou Luke s - infusion 12:33: sly every Medi radha 42 28 days. Center nitroglycer Yes acute .4mg Place 0.4 CHI [...] unrelieved 5min after 1st dose . liraglutide Yes type 2 1.8mg QD Inject 1.[address] 0.6 mg/0.1 9-24 diabetes mg [facility] - mL (18 mg/3 12:33: mellitus subcutaneo Medical mL) PnIj 42 usly daily Kim Zambrano rosuvastati 0 Yes atheroscler 20mg QD Take [address] n (CRESTOR) 9-24 otic by mouth Luke s - 40 MG 12:33: cardiovascu daily . Me dical tablet 42 [facility] disease Center metFORMIN 2019-0 Yes type 2 1000mg Q.5D Take 1,[address] (GLUCOPHAGE 06-02 diabetes mg by Elvira es - -XR) 500 MG 12:33: mellitus mouth 2 Medical 24 hr 42 (two) [place] tablet times daily. lansoprazol Yes gastroesoph 30mg QD Take [address] e 9 ageal by mouth [facility] - (PREVACID) 12:33: reflux nightly. M edical 30 MG 42 disease Center capsule insulin Yes type 2 100U QD Inject [address] glargine - diabetes Units [facility] - (LANTUS) 12:33: mellitus subcutaneo Medical 100 unit/mL 42 usly every Ce nter injection morning Use as directed . benazepriL 0 Yes hypertensio 20mg QD Take [address] (LOTENSIN) 9- n by mouth [facility] - 20 MG 12:33: daily. Medical tablet 42 [place] empaglifloz Yes 25mg QD Take [address] in 06-02 by mouth [facility] - (JARDIANCE) 12:33: daily. Medi radha 25 mg 42 [place] tablet abatacept Yes Q28D Inject [facility] (ORENCIA) 06-02 intravenou Luke s - infusion 12:33: sly every Medi radha 42 28 days. [place] tamsulosin 0 Yes .4mg QD Take 0.[address] (FLOMAX) 9-13 mg by [facility] - 0.4 mg Cap 00:00: mouth Medica l 24 hr 00 daily. [place] capsule tamsulosin Yes .4mg QD Take 0.[address] (FLOMAX) 9-13 mg by [facility] - 0.4 mg Cap 00:00: mouth Medica l 24 hr 00 daily. [place] capsule metoprolol 2020- No 50mg Q.5D Take [address] tartrate 6-17 06-17 tablet (50 Luke [facility] - (LOPRESSOR) 00:00: 23:59 mg total) Medical 50 MG 00 :00 by mouth 2 Center tablet (two) times daily. metoprolol 2020- No 50mg Q.5D Take [address] tartrate 6-17 06-17 tablet (50 [facility] - (LOPRESSOR) 00:00: 23:59 mg total) Medical 50 MG 00 :00 by mouth 2 Center tablet (two) times daily. clopidogreL 2020- No 75mg QD Take [address] (PLAVIX) 75 4-10 04-10 tablet (75 L ukes - mg tablet 00:00: 23:59 mg total) Me dical 00 :00 by mouth Center daily. clopidogreL 2020- No 75mg QD Take [address] (PLAVIX) 75 4-10 04-10 tablet (75 L ukes - mg tablet 00:00: 23:59 mg total) Me dical 00 :00 by mouth Center daily. clopidogrel No 75mg Take 75 mg Román (PLAVIX) 75 4-10 02-04 by mouth. Co llege MG Tablet 00:00: 00:00 of 00 :00 Medicin e ranolazine 2020- No 500mg Q.5D Take [address] (RANEXA) 12-16- tablet [facility] - 500 MG 12 00:00: 23:59 (500 mg Medi radha hr tablet 00 :00 total) by Cente r mouth 2 (two) times daily. ranolazine No 500mg Q.5D Take [address] (RANEXA) 12-16- tablet [facility] - 500 MG 12 00:00: 23:59 (500 mg Medi radha hr tablet 00 :00 total) by Cente r mouth 2 (two) times daily. Immunizations Ordered Immunization Filled Immunization Date Status Commen ts Source Name Name PFIZER COVID-19 MRNA 2020-12-14 Completed [facility]ist VACCINATION 00:00:00 [facility] PFIZER COVID-19 MRNA 2020-11-23 Completed Meth odist VACCINATION 00:00:00 Hospital Vital Signs Vital Name Observation Time Observation Value Comments Source HEIGHT 2020-02-03 00:00:00 182.9 cm WEIGHT 2020-02-03 00:00:00 95.255 kg Systolic blood 2020-11-08 20:15:00 161 mm[Hg] [facility] pressure Medicine Diastolic blood 2020-11-08 20:15:00 84 mm[Hg] [facility] pressure Medicine Heart rate 2020-11-08 20:15:00 99 /min [facility] Body height 2020-11-08 20:15:00 177.8 cm [facility] Body weight 2020-11-08 20:15:00 79.833 kg [facility] BMI 2020-11-08 20:15:00 25.25 kg/m2 [facility] Systolic blood 2020-10-13 17:37:00 131 mm[Hg] [facility] pressure Medicine Diastolic blood 2020-10-13 17:37:00 75 mm[Hg] [facility] Medicine Heart rate 2020-10-13 17:37:00 72 /min [facility] Body height 2020-10-13 17:37:00 177.8 cm [facility] Body weight 2020-10-13 17:37:00 79.833 kg [facility] BMI 2020-10-13 17:37:00 25.25 kg/m2 [facility] WEIGHT 2020-06-02 00:00:00 91.627 kg WEIGHT 2020-04-06 00:00:00 91.627 kg HEIGHT 2020-03-08 00:00:00 180 cm HEIGHT 2020-02-21 00:00:00 180 cm WEIGHT 2020-02-21 00:00:00 94.983 kg HEIGHT 2020-02-21 00:00:00 180 cm WEIGHT 2020-02-21 00:00:00 94.983 kg Body temperature 2021-04-14 17:27:20 37.17 [facility] Respiratory rate 2021-04-14 17:27:20 18 /min [facility] Oxygen saturation in 2021-04-14 17:27:20 93 /min [facility] Arterial blood by Pulse oximetry Systolic blood 2021-04-14 17:27:20 132 mm[Hg] [facility] pressure Diastolic blood 2021-04-14 17:27:20 66 mm[Hg] [facility] pressure Heart rate 2021-04-14 17:27:20 83 /min [facility] Body height 2021-04-12 11:47:00 180.3 cm [facility] Body weight 2021-04-12 11:47:00 84.823 kg [facility] BMI 2021-04-12 11:47:00 26.08 kg/m2 [facility] Procedures Procedure Date / Time Performing Clinician Source Performed POC GLUCOSE 2021-04-14 12:28:00 Jer Stevens ospital BASIC METABOLIC PANEL 2021-04-14 11:04:00 Michael Joseph [facility] ESTIMATED GFR 2021-04-14 11:04:00 Michael Joseph [facility] HC COMPLETE BLD COUNT 2021-04-14 08:20:00 Jer Stevens [facility] W/AUTO DIFF BASIC METABOLIC PANEL 2021-04-14 08:20:00 Jer Stevens [facility] MAGNESIUM LEVEL 2021-04-14 08:20:00 [facility] 2021-04-14 08:20:00 Jer Stevens ospital POC GLUCOSE 2021-04-13 22:15:00 Jer Stevens ospital BASIC METABOLIC PANEL 2021-04-13 20:54:00 [facility] Patrese MAGNESIUM LEVEL 2021-04-13 20:54:00 [facility] Patrese THYROID STIMULATING 2021-04-13 20:54:00 [facility] HORMONE Patrese T4, FREE 2021-04-13 20:54:00 [facility] Patrese ESTIMATED GFR 2021-04-13 20:54:00 [facility] Patrese ECG 12-LEAD 2021-04-13 19:21:14 [facility], [facility] POC GLUCOSE 2021-04-13 17:32:00 Jer Stevens H ospital HC COMPLETE BLD COUNT 2021-04-13 08:54:00 Jer Stevens [facility] W/AUTO DIFF BASIC METABOLIC PANEL 2021-04-13 08:54:00 Jer Stevens [facility] B NATRIURETIC PEPTIDE 2021-04-13 08:54:00 [facility] MAGNESIUM LEVEL 2021-04-13 08:54:00 [facility] ESTIMATED GFR 2021-04-13 08:54:00 [facility] 2021-04-12 22:58:00 Jer Stevens H ospital XR PELVIS 1 OR 2 VW 2021-04-12 15:14:52 Jer Stevens [facility] POC GLUCOSE 2021-04-12 15:06:00 Jer Stevens ospital OR [place] > 1 HOUR 2021-04-12 14:51:00 Jer Stevens H ospital XR PELVIS 1 OR 2 VW 2021-04-12 14:30:00 Jer Stevens [facility] OH AN ELECTIVE 2021-04-12 13:09:00 Julito Espino spital ENDOTRACHEAL AIRWAY ARTHROPLASTY, HIP, TOTAL, 2021-04-12 13:00:00 Jer Stevens [facility] ANTERIOR APPROACH ABO AND RH CONFIRMATION 2021-04-12 11:40:00 Jer Stevens [facility] POC GLUCOSE 2021-04-12 10:55:00 Jer Stevens H ospital COVID-19 QUALITATIVE 2021-04-11 13:16:00 Jer Stevens [facility] RT-PCR URINE CULTURE 2021-04-05 21:20:00 Jer Stevens H ospital HC COMPLETE BLD COUNT 2021-04-05 20:01:00 Jer Stevens [facility] W/AUTO DIFF COMPREHENSIVE METABOLIC 2021-04-05 20:01:00 Jer Stevens [facility] PANEL PROTHROMBIN TIME WITH INR 2021-04-05 20:01:00 Jer Stevens [facility] PARTIAL THROMBOPLASTIN 2021-04-05 20:01:00 Jer Stevens [facility] TIME (PTT) URINALYSIS SCREEN AND 2021-04-05 20:01:00 Jer Stevens [facility] MICROSCOPY, WITH REFLEX TO CULTURE TYPE AND SCREEN 2021-04-05 20:01:00 Jer Stevens ospital HEMOGLOBIN A1C 2021-04-05 20:01:00 [facility] 2021-04-05 20:01:00 Jer Stevens ospital ECG PRE/POST OP 2021-04-05 19:57:27 [facility] [id number] 2020-09-07 00:00:00 WHEED [facility] [id number] 2020-09-07 00:00:00 WHEED [facility] [id number] 2020-09-07 00:00:00 WHEED [facility] [id number] 2020-09-01 00:00:00 SINSI [facility] [id number] 2020-08-30 [facility]00[id number] 2020-08-30 00:00:00 [facility] Plan of Care Planned Activity Planned Date Details Comments Source Future Scheduled 2021-09-13 Hepatitis C [facility] Test 11:21:21 screening Hospital (procedure) [code = 142989630] Future Scheduled 2021-09-13 SHINGLES VACCINES Method ist Test 11:21:21 (#1) [code = Hospital SHINGLES VACCINES (#1)] Future Scheduled 2021-09-13 INFLUENZA VACCINE Method ist Test 11:21:21 [code = INFLUENZA Hospital VACCINE] Future Scheduled 2021-09-13 COVID-19 VACCINE (3 Meth odist Test 11:21:21 - Booster for Hospital Pfizer series) [code = COVID-19 VACCINE (3 - Booster for Pfizer series)] Future Scheduled 2021-09-[address] [facility] - Test 00:00:00 SCREENING (12+) Medical Cent er [code = DEPRESSION SCREENING (12+)] Future Scheduled 2021-09-[address] [facility] - Test 00:00:00 SCREENING [code = Medical Ce nter FALLS RISK SCREENING] Future Scheduled 2021-09-[address] [facility] - Test 00:00:00 SCREENING (12+) Medical Cent er [code = DEPRESSION SCREENING (12+)] Future Scheduled 2021-09-[address] - Test 00:00:00 SCREENING [code = Medical Ce nter FALLS RISK SCREENING] Future Scheduled 2021-05-[address] [facility] - Test 00:00:00 (#1) [code = [facility] INFLUENZA VACCINE (#1)] Future Scheduled 2021-05-[address] [facility] - Test 00:00:00 (#1) [code = [facility] INFLUENZA VACCINE (#1)] Future Scheduled 2010-07-[address] [facility] - Test 00:00:00 WELLNESS (YEAR 2 or Medical Center FIRST YEAR if no IPPE) [code = MEDICARE ANNUAL WELLNESS (YEAR 2 or FIRST YEAR if no IPPE)] Future Scheduled 2010-07-[address] [facility] - Test 00:00:00 WELLNESS (YEAR 2 or Medical Center FIRST YEAR if no IPPE) [code = MEDICARE ANNUAL WELLNESS (YEAR 2 or FIRST YEAR if no IPPE)] Future Scheduled [address] [facility] - Test 00:00:00 (1 of 2) [code = Medical [place] [facility] SHINGLES VACCINES (1 of 2)] Future Scheduled [address] [facility] - Test 00:00:00 (1 of 2) [code = Medical [place] [facility] SHINGLES VACCINES (1 of 2)] Future Scheduled 1963 DTAP/TDAP/TD [facility] - Test 00:00:00 VACCINES (1 - Tdap) [facility] [code = DTAP/TDAP/TD VACCINES (1 - Tdap)] Future Scheduled 1963 DTAP/TDAP/TD [facility] - Test 00:00:00 VACCINES (1 - Tdap) Medical Center [code = DTAP/TDAP/TD VACCINES (1 - Tdap)] Future Scheduled [address] [facility] - Test 00:00:00 SCREENING [code = Medical Ce nter HEPATITIS C SCREENING] Future Scheduled [address] [facility] - Test 00:00:00 SCREENING [code = Medical Ce nter HEPATITIS C SCREENING] Future Scheduled 1956 COVID-[address] [facility] - Test 00:00:00 (1) [code = [facility] COVID-19 VACCINE (1)] Future Scheduled 1956 COVID-[address] [facility] - Test 00:00:00 (1) [code = [facility] COVID-19 VACCINE (1)] Future Scheduled TETANUS SHOT [facility] Callie ege of Test (ADULT) [code = Medicine TETANUS SHOT (ADULT)] Future Scheduled BMI FOLLOW UP PLAN [facility] of Test [code = BMI FOLLOW Medicine UP PLAN] Future Scheduled HEPATITIS C [facility] of Test SCREENING [code = Medicine HEPATITIS C SCREENING] Future Scheduled ZOSTER VACCINE (1 [facility] of Test of 2) [code = Medicine ZOSTER VACCINE (1 of 2)] Future Scheduled MEDICARE AWV [facility]ie [facility] of Test (Initial) [code = Medicine MEDICARE AWV (Initial)] Future Scheduled FALL SCREEN [code = [facility] of Test FALL SCREEN] Medicine Future Scheduled PNEUMOVAX >=65 [facility] llege of Test (PPSV23) [code = Medicine PNEUMOVAX >=65 (PPSV23)] Future Scheduled FLU VACCINE > 6 [facility] C ollege of Test MONTHS [code = FLU Medicine VACCINE > 6 MONTHS] Future Scheduled [place] DEBRIDEMENT OF Ordered: [facility] of Test NAILS, 6 OR MORE 11/19/2020 Medicine [code = 05569] Future Scheduled TETANUS SHOT [facility] of Test (ADULT) [code = Medicine TETANUS SHOT (ADULT)] Future Scheduled COVID-19 Vaccine [facility] of Test (1) [code = Medicine COVID-19 Vaccine (1)] Future Scheduled BMI FOLLOW UP PLAN [facility] of Test [code = BMI FOLLOW Medicine UP PLAN] Future Scheduled Hepatitis C [facility] of Test screening Medicine (procedure) [code = 086248243] Future Scheduled ZOSTER VACCINE (1 [facility] of Test of 2) [code = Medicine ZOSTER VACCINE (1 of 2)] Future Scheduled MEDICARE AWV [facility] Test (Initial) [code = Medicine MEDICARE AWV (Initial)] Future Scheduled FALL SCREEN [code = [facility] or [place] of Test FALL SCREEN] Medicine Future Scheduled PNEUMOVAX >=65 [facility] Co llege of Test (PPSV23) [code = Medicine PNEUMOVAX >=65 (PPSV23)] Future Scheduled FLU VACCINE > 6 [facility] C ollege of Test MONTHS [code = FLU Medicine VACCINE > 6 MONTHS] Future Scheduled COVID-19 Vaccine [facility] of Test Evaluation [code = Medicine COVID-19 Vaccine Evaluation] Encounters Start End Encounter Admission Attending Care Care Encounter Source Date/Time Date/Time Type Type Clinicians Facility Department ID 2021-10-04 Outpatient [facility] [id number] [facility]:49[facility] 2021-06-13 Outpatient OLESYA MOLINA Surgery [id number] SLE 15:13:05 [facility] 2020-09-21 Inpatient Hernandez, HCAMN HCAMN [id number] [facility] 13:25:00 Daryn [id number] [facility] 2020-09-06 Inpatient EL Hernandez, HCAMN REHA [id number] [facility] 13:25:00 Daryn [id number] [facility] 2020-08-30 Inpatient HCAMN RAKESH [id number] [facility] 19:48:00 [id number] [facility] 2019-12-15 Inpatient [facility] SLE [id number] SLE 15:39:17 [id number] 2021-09-12 2021-09-12 Outpatient GC_TEG_Gupt PRIV PRIV 210 [id number] [facility] 03:16:00 03:16:00 a_A [id number] Medica l 2021-09-12 2021-09-12 Outpatient GC_TEG_Gupt PRIV PRIV 210 [id number] [facility] 03:16:00 03:16:00 a_A [id number] Medica l 2021-09-12 2021-09-12 Outpatient Jurado, PRIV PRIV [id number] 00:00:00 00:00:00 Katina [id number]-[id number]-8 [id number] 2021-04-12 2021-04-14 Hospital [facility], 1.2.840.1 [id number] Methodi 05:44:00 13:39:00 Encounter Jer Campuzano 23745.1.1 333 s t 3.430.2.7 Hospit a .3.710505 l .8 2021-04-12 2021-04-12 Surgery [facility], 1.2.840.1 [id number] Methodi 08:00:00 10:40:00 [place] [address]. [address]369.1.[address] 3.430.2.7 Hospit a .3.395825 l .8 2021-04-12 2021-04-12 Anesthesia Srinivas, Julito 1.2.840.1 [id number] Methodi 08:00:00 10:09:00 Event [facility] 60118.1.[address] 3.430.2.7 Hospit a .3.649980 l .8 2021-04-11 2021-04-11 Lab [facility], 1.2.840.1 [id number] Methodi 08:06:36 08:21:[address] 3.430.2.7 Hospit a .3.288541 l .8 2021-04-11 2021-04-11 Travel 1.2.840.1 1.2.060.154 [id number] Methodi 00:00:00 00:00:[address] 3.430.2.7 0.2.7.3.698 Ho spita .3.040273 084.8 l .8 2021-04-05 2021-04-05 Pre-Admiss [facility], 1.2.840.1 [id number] Methodi 13:30:00 14:30:00 ion Jer NKenya 82790.1.[address] Testing 3.430.2.7 Hospit a .3.929278 l .8 2021-04-05 2021-04-05 Travel 1.2.840.1 1.2.951.706 0457 [id number] Methodi 00:00:00 00:00:[address] 3.430.2.7 0.2.7.3.698 Ho spita .3.286721 084.8 l .8 2021-02-23 2021-02-23 Documentat Provider, 1.2.840.1 [id number] Methodi 00:00:00 00:00:00 ion Unknown 82195.1.[address] 3.430.2.7 Hospit a .3.780923 l .8 2020-11-08 2020-11-08 Office JUDI Gordon 1.2.840.114 [id number] [facility] 13:46:36 14:16:36 Visit Christiano Stevens AMBULATOR 350.1.13.21 College Y 0.2.7.2.686 of [id number] [facility] 825 e 2020-10-13 2020-10-13 Office JUDI Gruber 1.2.840.114 804 [id number] [facility] 10:58:31 15:07:02 Visit Ernesto AMBULATOR 350.1.13.21 College Ritesh Y 0.2.7.2.686 of [id number] [facility] 825 e 2020-08-31 2020-08-31 Outpatient Valyinas [facility] LABO E32 [id number] [facility] 00:09:00 00:09:00 lesly [id number] [facility] 2020-08-10 2020-08-10 Outpatient SLE [facility] [id number] [facility] 00:00:00 00:00:00 2020-07-05 2020-07-05 Outpatient [facility] [id number] [facility] 2020-06-06 2020-06-06 Outpatient [facility] [id number] [facility] 2020-06-02 2020-06-02 Outpatient COCO ALICIA [facility] [id number] [facility] 00:00:00 00:00:00 RAZA 2020-04-20 2020-04-20 Outpatient COCO ALICIA [facility] [id number] [facility] 00:00:00 00:00:00 RAZA 2020-04-06 2020-04-06 Outpatient YOLY [facility] [id number] [facility] 00:00:00 00:00:00 RAZA 2020-03-08 2020-03-08 [facility] [id number] [facility] 00:00:00 00:00:00 RAZA 2020-02-21 2020-02-21 Emergency ER [facility] Emergency [id number] SLE 16:41:00 16:41:00 2020-02-18 2020-02-18 Outpatient YOLY [facility] [id number] SLE 00:00:00 00:00:00 Results Test Description Test Time Test Comments Results Result Comments Source POC glucose 2021-04-14 12:29:21 Test Item Value Reference Range Interpretation Comme [facility] POC glucose (test code = 198 mg/dL 65-99 H Ope rator Name: Jh Yusuf 93598-8) ID: [id number] hartable: [facility] Notified director operations broadcast Interpretation (test code = Abnormal 54353-4) [facility] 12 [id number] 00:10:08 Test Item Value Reference Range Interpretation Comments Ventricular rate (test code = 253) Atrial rate (test code = 255) OH interval (test code = 266) QRSD interval (test code = 260) QT interval (test code = 264) QTC interval (test code = 265) P axis 1 (test code = 267) QRS axis 1 (test code = 268) T wave axis (test code = 270) EKG impression (test Sinus tachycardia with code = 273) premature atrial complexes-Otherwise normal ECG-In automated comparison with ECG of 05-APR-2021 14:57,-premature atrial complexes are now present- [facility] and [id number] 12:53:00 Test Item Value Reference Range Interpretation Comments ABO grouping (test code = 883-9) O Rh type (test code = 76346-0) POS [facility] [id number] 17:13:58 Test Item Value Reference Range Interpretation Comments Interpretation (test Negative results do code = 3077357) not preclude 2019-nCoV infection and should not be used as the sole basis for treatment or other patient management decisions. Negative results must be combined with clinical observations, patient history, and epidemiological information. COVID-19 qualitative Not-Detected Not-Detected RT-PCR result (test code = 16697-2) COVID-19 qualitative See link below for C ase Number: RT-PCR (test code = PDF Lab Report [id number]) [facility] [id number] 18:34:55 Test Item Value Reference Range Interpretation Comments Ventricular rate (test code = 253) Atrial rate (test code = 255) OH interval (test code = 266) QRSD interval (test code = 260) QT interval (test code = 264) QTC interval (test code = 265) P axis 1 (test code = 267) QRS axis 1 (test code = 268) T wave axis (test code = 270) EKG impression (test Normal sinus code = 273) rhythm-Normal ECG-No significant change was found when compared to prior ECG- [facility] [id number] 22:39:00 Test Item Value Reference Range Interpretation Comments ABO grouping (test code = 883-9) O Rh type (test code = 44497-8) POS Antibody screen (gel) (test code = NEG 890-4) [facility] [id number] 22:22:53 Test Item Value Reference Range Interpretation Comments Urine culture (test SEE COMMENT Bacteriu noah screen code = 6368740) negative. [facility] [id number] 17:05:00 Test Item Value Reference Range Interpretation Comments GLUBED (test code = GLUBED) 204 mg/dL 70-110 H [id number] 07:54:00 Test Item Value Reference Range Interpretation Comments GLUBED (test code = GLUBED) 142 mg/dL 70-110 H [id number] 21:15:00 Test Item Value Reference Range Interpretation Comments GLUBED (test code = GLUBED) 215 mg/dL 70-110 H [id number] 16:48:00 Test Item Value Reference Range Interpretation Comments GLUBED (test code = GLUBED) 191 mg/dL 70-110 H [id number] 14:28:00 Test Item Value Reference Range Interpretation Comments GLUBED (test code = GLUBED) 154 mg/dL 70-110 H [id number] 11:42:00 Test Item Value Reference Range Interpretation Comments GLUBED (test code = GLUBED) 180 mg/dL 70-110 H CBC W/AUTO [id number] 10:45:00 Test Item Value Reference Range Interpretation Comments WHITE BLOOD CELL (test code = 4.5 K/mm3 4.5-11.0 N WBC) RED BLOOD CELL (test code = 3.34 M/mm3 4.40-5.90 L RBC) HEMOGLOBIN (test code = HGB) 10.2 gm/dL 13.0-17.0 L HEMATOCRIT (test code = HCT) 32.0 % 36.0-48.0 L MEAN CELL VOLUME (test code = 95.8 UM3 80.0-94.0 H MCV) MEAN CELL HGB (test code = MCH) 30.5 UUG 25.5-32.5 N MEAN CELL HGB CONCETRATION 31.9 gm/dL 29.0-35.5 N (test code = MCHC) RED CELL DISTRIBUTION WIDTH 15.3 % 11.5-15.0 H (test code = RDW) RED CELL DISTRIBUTION WIDTH SD 54.0 fL 34.8-50.2 H (test code = RDW-SD) PLATELET COUNT (test code = 270 K/mm3 150-400 N PLT) MEAN PLATELET VOLUME (test code 10.6 fl 7.4-10.4 H = MPV) NEUTROPHIL % (test code = NT%) 36.5 % 49.0-76.0 L IMMATURE GRANULOCYTE % (test 0.4 % 0.0-0.4 N code = IG%) LYMPHOCYTE % (test code = LY%) 37.5 % 23.0-38.0 N MONOCYTE % (test code = MO%) 20.0 % 1.0-10.0 H EOSINOPHIL % (test code = EO%) 4.3 % 1.0-5.0 N BASOPHIL % (test code = BA%) 1.3 % 0.0-1.0 H NUCLEATED RBC % (test code = 0.0 % 0.0-0.1 N NRBC%) NEUTROPHIL # (test code = NT#) 1.6 K/mm3 2.4-6.3 L IMMATURE GRANULOCYTE # (test 0.02 x10 3/uL 0.00-0.07 N code = IG#) LYMPHOCYTE # (test code = LY#) 1.7 K/mm3 1.2-4.0 N MONOCYTE # (test code = MO#) 0.9 K/mm3 0.0-0.6 H EOSINOPHIL # (test code = EO#) 0.2 K/MM3 0.0-0.7 N BASOPHIL # (test code = BA#) 0.1 K/mm3 0.0-0.2 N NUCLEATED RBC # (test code = 0.00 X10 3uL 0.00-0.01 N NRBC#) LINE [id number] 07:17:00 Test Item Value Reference Range Interpretation Comments GLUBED (test code = GLUBED) 149 mg/dL 70-110 H [id number] 16:29:00 Test Item Value Reference Range Interpretation Comments GLUBED (test code = GLUBED) 202 mg/dL 70-110 H [id number] 11:50:00 Test Item Value Reference Range Interpretation Comments GLUBED (test code = GLUBED) 197 mg/dL 70-110 H [id number] 07:00:00 Test Item Value Reference Range Interpretation Comments GLUBED (test code = GLUBED) 147 mg/dL 70-110 H [id number] 21:04:00 Test Item Value Reference Range Interpretation Comments GLUBED (test code = GLUBED) 235 mg/dL 70-110 H [id number] 20:47:00 Test Item Value Reference Range Interpretation Comments GLUBED (test code = GLUBED) 193 mg/dL 70-110 H [id number] 11:57:00 Test Item Value Reference Range Interpretation Comments GLUBED (test code = GLUBED) 213 mg/dL 70-110 H [id number] 08:47:00 Test Item Value Reference Range Interpretation Comments GLUBED (test code = GLUBED) 156 mg/dL 70-110 H COMPREHENSIVE METABOLIC [id number] 08:15:00 Test Item Value Reference Range Interpretation Comments SODIUM (test code = NA) 138 mmol/l 134.0-147.0 N POTASSIUM (test code = K) 4.2 mmol/L 3.6-5.2 N CHLORIDE (test code = CL) 102 mmol/l 98.0-107.0 N CARBON DIOXIDE (test code = CO2) 23.6 mmol/l 21.0-33.0 N ANION GAP (test code = GAP) 16.6 0-20 N GLUCOSE (test code = GLU) 165 mg/dl 70.0-110.0 H BLOOD UREA NITROGEN (test code = 14 mg/dl 7.0-18.0 N BUN) CREATININE (test code = CREAT) 1.06 mg/dL 0.60-1.30 N GFR NON BLACK (test code = 72 mL/min 70-80 N GFRNONBLACK) GFR BLACK (test code = GFRBLACK) 87 mL/min 85-97 N TOTAL PROTEIN (test code = PROT) 5.9 gm/dL 6.4-8.2 L ALBUMIN (test code = ALB) 2.6 gm/dl 3.2-4.7 L CALCIUM (test code = CA) 9.7 mg/dl 8.0-10.5 N BILIRUBIN TOTAL (test code = 0.4 mg/dl 0.0-1.0 N BILT) SGOT/AST (test code = AST) 16 Units/L 15-37 N SGPT/ALT (test code = ALT) 18 Units/L 12.0-78.0 N ALKALINE PHOSPHATASE TOTAL (test 51 Units/L 50.0-136.0 N code = ALKP) CBC W/AUTO [id number] 07:36:00 Test Item Value Reference Range Interpretation Comments WHITE BLOOD CELL (test code = 4.4 K/mm3 4.5-11.0 L WBC) RED BLOOD CELL (test code = 3.23 M/mm3 4.40-5.90 L RBC) HEMOGLOBIN (test code = HGB) 9.7 gm/dL 13.0-17.0 L HEMATOCRIT (test code = HCT) 31.6 % 36.0-48.0 L MEAN CELL VOLUME (test code = 97.8 UM3 80.0-94.0 H MCV) MEAN CELL HGB (test code = MCH) 30.0 UUG 25.5-32.5 N MEAN CELL HGB CONCETRATION 30.7 gm/dL 29.0-35.5 N (test code = MCHC) RED CELL DISTRIBUTION WIDTH 15.4 % 11.5-15.0 H (test code = RDW) RED CELL DISTRIBUTION WIDTH SD 55.5 fL 34.8-50.2 H (test code = RDW-SD) PLATELET COUNT (test code = 259 K/mm3 150-400 N PLT) MEAN PLATELET VOLUME (test code 10.7 fl 7.4-10.4 H = MPV) NEUTROPHIL % (test code = NT%) 31.9 % 49.0-76.0 L IMMATURE GRANULOCYTE % (test 0.2 % 0.0-0.4 N code = IG%) LYMPHOCYTE % (test code = LY%) 37.5 % 23.0-38.0 N MONOCYTE % (test code = MO%) 24.0 % 1.0-10.0 H EOSINOPHIL % (test code = EO%) 4.8 % 1.0-5.0 N BASOPHIL % (test code = BA%) 1.6 % 0.0-1.0 H NUCLEATED RBC % (test code = 0.0 % 0.0-0.1 N NRBC%) NEUTROPHIL # (test code = NT#) 1.4 K/mm3 2.4-6.3 L IMMATURE GRANULOCYTE # (test 0.01 x10 3/uL 0.00-0.07 N code = IG#) LYMPHOCYTE # (test code = LY#) 1.6 K/mm3 1.2-4.0 N MONOCYTE # (test code = MO#) 1.1 K/mm3 0.0-0.6 H EOSINOPHIL # (test code = EO#) 0.2 K/MM3 0.0-0.7 N BASOPHIL # (test code = BA#) 0.1 K/mm3 0.0-0.2 N NUCLEATED RBC # (test code = 0.00 X10 3uL 0.00-0.01 N NRBC#) [id number] 20:21:00 Test Item Value Reference Range Interpretation Comments GLUBED (test code = GLUBED) 264 mg/dL 70-110 H [id number] 15:51:00 Test Item Value Reference Range Interpretation Comments GLUBED (test code = GLUBED) 183 mg/dL 70-110 H [id number] 15:02:00 Test Item Value Reference Range Interpretation Comments GLUBED (test code = GLUBED) 271 mg/dL 70-110 H [id number] 11:46:00 Test Item Value Reference Range Interpretation Comments GLUBED (test code = GLUBED) 218 mg/dL 70-110 H [id number] 07:59:00 Test Item Value Reference Range Interpretation Comments GLUBED (test code = GLUBED) 150 mg/dL 70-110 H [id number] 22:17:00 Test Item Value Reference Range Interpretation Comments GLUBED (test code = GLUBED) 257 mg/dL 70-110 H [id number] 16:49:00 Test Item Value Reference Range Interpretation Comments GLUBED (test code = GLUBED) 234 mg/dL 70-110 H [id number] 11:03:00 Test Item Value Reference Range Interpretation Comments GLUBED (test code = GLUBED) 209 mg/dL 70-110 H [id number] 17:37:00 Test Item Value Reference Range Interpretation Comments GLUBED (test code = GLUBED) 276 mg/dL 70-110 H [id number] 11:56:00 Test Item Value Reference Range Interpretation Comments GLUBED (test code = GLUBED) 210 mg/dL 70-110 H [id number] 08:17:00 Test Item Value Reference Range Interpretation Comments GLUBED (test code = GLUBED) 165 mg/dL 70-110 H [id number] 20:27:00 Test Item Value Reference Range Interpretation Comments GLUBED (test code = GLUBED) 294 mg/dL 70-110 H [id number] 16:43:00 Test Item Value Reference Range Interpretation Comments GLUBED (test code = GLUBED) 244 mg/dL 70-110 H [id number] 11:45:00 Test Item Value Reference Range Interpretation Comments GLUBED (test code = GLUBED) 205 mg/dL 70-110 H [id number] 07:07:00 Test Item Value Reference Range Interpretation Comments GLUBED (test code = GLUBED) 187 mg/dL 70-110 H [id number] 21:16:00 Test Item Value Reference Range Interpretation Comments GLUBED (test code = GLUBED) 239 mg/dL 70-110 H [id number] 16:50:00 Test Item Value Reference Range Interpretation Comments GLUBED (test code = GLUBED) 189 mg/dL 70-110 H [id number] 16:50:00 Test Item Value Reference Range Interpretation Comments GLUBED (test code = GLUBED) 214 mg/dL 70-110 H [id number] 07:22:00 Test Item Value Reference Range Interpretation Comments GLUBED (test code = GLUBED) 212 mg/dL 70-110 H [id number] 21:12:00 Test Item Value Reference Range Interpretation Comments GLUBED (test code = GLUBED) 280 mg/dL 70-110 H [id number] 16:11:00 Test Item Value Reference Range Interpretation Comments GLUBED (test code = GLUBED) 272 mg/dL 70-110 H [id number] 11:09:00 Test Item Value Reference Range Interpretation Comments GLUBED (test code = GLUBED) 261 mg/dL 70-110 H [id number] 07:00:00 Test Item Value Reference Range Interpretation Comments GLUBED (test code = GLUBED) 199 mg/dL 70-110 H BASIC METABOLIC [id number] 06:56:00 Test Item Value Reference Range Interpretation Comments SODIUM (test code = NA) 137 mmol/l 134.0-147.0 N POTASSIUM (test code = K) 3.8 mmol/L 3.6-5.2 N CHLORIDE (test code = CL) 100 mmol/l 98.0-107.0 N CARBON DIOXIDE (test code = CO2) 32.7 mmol/l 21.0-33.0 N ANION GAP (test code = GAP) 8.1 0-20 N GLUCOSE (test code = GLU) 206 mg/dl 70.0-110.0 H BLOOD UREA NITROGEN (test code = 9 mg/dl 7.0-18.0 N BUN) CREATININE (test code = CREAT) 0.96 mg/dL 0.60-1.30 N GFR NON BLACK (test code = 81 mL/min 70-80 H GFRNONBLACK) GFR BLACK (test code = GFRBLACK) 98 mL/min 85-97 H CALCIUM (test code = CA) 9.1 mg/dl 8.0-10.5 N LINE DRAWCBC W/AUTO [id number] 06:44:00 Test Item Value Reference Range Interpretation Comments WHITE BLOOD CELL (test code = 5.0 K/mm3 4.5-11.0 N WBC) RED BLOOD CELL (test code = 3.38 M/mm3 4.40-5.90 L RBC) HEMOGLOBIN (test code = HGB) 10.4 gm/dL 13.0-17.0 L HEMATOCRIT (test code = HCT) 32.9 % 36.0-48.0 L MEAN CELL VOLUME (test code = 97.3 UM3 80.0-94.0 H MCV) MEAN CELL HGB (test code = MCH) 30.8 UUG 25.5-32.5 N MEAN CELL HGB CONCETRATION 31.6 gm/dL 29.0-35.5 N (test code = MCHC) RED CELL DISTRIBUTION WIDTH 16.2 % 11.5-15.0 H (test code = RDW) RED CELL DISTRIBUTION WIDTH SD 57.7 fL 34.8-50.2 H (test code = RDW-SD) PLATELET COUNT (test code = 272 K/mm3 150-400 N PLT) MEAN PLATELET VOLUME (test code 10.2 fl 7.4-10.4 N = MPV) NEUTROPHIL % (test code = NT%) 43.3 % 49.0-76.0 L IMMATURE GRANULOCYTE % (test 0.2 % 0.0-0.4 N code = IG%) LYMPHOCYTE % (test code = LY%) 34.1 % 23.0-38.0 N MONOCYTE % (test code = MO%) 18.0 % 1.0-10.0 H EOSINOPHIL % (test code = EO%) 3.0 % 1.0-5.0 N BASOPHIL % (test code = BA%) 1.4 % 0.0-1.0 H NUCLEATED RBC % (test code = 0.0 % 0.0-0.1 N NRBC%) NEUTROPHIL # (test code = NT#) 2.1 K/mm3 2.4-6.3 L IMMATURE GRANULOCYTE # (test 0.01 x10 3/uL 0.00-0.07 N code = IG#) LYMPHOCYTE # (test code = LY#) 1.7 K/mm3 1.2-4.0 N MONOCYTE # (test code = MO#) 0.9 K/mm3 0.0-0.6 H EOSINOPHIL # (test code = EO#) 0.2 K/MM3 0.0-0.7 N BASOPHIL # (test code = BA#) 0.1 K/mm3 0.0-0.2 N NUCLEATED RBC # (test code = 0.00 X10 3uL 0.00-0.01 N NRBC#) LINE [id number] 03:10:00 Test Item Value Reference Range Interpretation Comments GLUBED (test code = GLUBED) 278 mg/dL 70-110 H [id number] 19:59:00 Test Item Value Reference Range Interpretation Comments GLUBED (test code = GLUBED) 290 mg/dL 70-110 H [id number] 16:29:00 Test Item Value Reference Range Interpretation Comments GLUBED (test code = GLUBED) 232 mg/dL 70-110 H - XR HIP W/PEL UNI 2+V [id number] 14:54:00 [facility] : 1945 Sex: M FAX: Daryn Potter [phone] [place]: St: ADM FAX: Y Eh Piper MD [phone] Name: ALTHEA TOVAR [facility] : 1945 Age/S: 75/M [address] [facility] Unit #: [id number] Loc: [address] Phys: [place] [id number] Acct: [id number] Dis Date: Status: ADM IN PHONE #: [phone] Exam Date: 09/12/2020 1351 FAX #: [phone] R irvin: HIP PAIN EXAMS: CPT CODE: [id number] XR HIP W/PEL UNI 2+[place] 16[address] B2 EXAM: - XR HIP W/PEL UNI 2+V RT HISTORY: HIP PAIN COMPARISON: None FINDINGS: No acute fracture or dislocation. Severe acetabular joint space narrowing with subchondral sclerosis and osteophyte formation. No aggressive osseous lesions. Moderate vascular calcifications. 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 at 9439 Reported and signed by: Jonathan Hyde M.D. CC: Daryn Hernandez MD; Eh Saldana MD Technologist: RANDALL PATRICIA Trnscrd Date/Time/By: 09/12/2020 (7757) : By: [email or web address] PAGE 1 Signed Report FAX: Daryn Potter [phone] [place]: St: [facility] FAX: Eh Vasques MD [phone] Name: ALTHEA TOVAR [facility] : 1945 Age/S: 75/M [address] [facility] Unit #: [id number] Loc: [address] [place], [place]: [place] [id number] Acct: [id number] Dis Date: Status: ADM IN PHONE #: [phone] Exam Date: 09/12/2020 1351 FAX #: [phone] Reason: HIP PAIN EXAMS: CPT CODE: [id number] XR HIP W/PEL UNI 2+V RT [id number] <Continued> Orig Print D/T: S: 09/12/2020 (0327) PAGE 2 Signed [id number] 10:21:00 Test Item Value Reference Range Interpretation Comments GLUBED (test code = GLUBED) 248 mg/dL 70-110 H BASIC METABOLIC [id number] 09:22:00 Test Item Value Reference Range Interpretation Comments SODIUM (test code = NA) 141 mmol/l 134.0-147.0 N POTASSIUM (test code = K) 3.0 mmol/L 3.6-5.2 L CHLORIDE (test code = CL) 100 mmol/l 98.0-107.0 N CARBON DIOXIDE (test code = CO2) 31.7 mmol/l 21.0-33.0 N ANION GAP (test code = GAP) 12.3 0-20 N GLUCOSE (test code = GLU) 229 mg/dl 70.0-110.0 H BLOOD UREA NITROGEN (test code = 3 mg/dl 7.0-18.0 L BUN) CREATININE (test code = CREAT) 0.86 mg/dL 0.60-1.30 N GFR NON BLACK (test code = 92 mL/min 70-80 H GFRNONBLACK) GFR BLACK (test code = GFRBLACK) 111 mL/min 85-97 H CALCIUM (test code = CA) 9.2 mg/dl 8.0-10.5 N [id number] 07:24:00 Test Item Value Reference Range Interpretation Comments GLUBED (test code = GLUBED) 187 mg/dL 70-110 H [id number] 16:22:00 Test Item Value Reference Range Interpretation Comments GLUBED (test code = GLUBED) 224 mg/dL 70-110 H [id number] 14:55:00 Test Item Value Reference Range Interpretation Comments GLUBED (test code = GLUBED) 284 mg/dL 70-110 H [id number] 14:52:00 Test Item Value Reference Range Interpretation Comments GLUBED (test code = GLUBED) 201 mg/dL 70-110 H [id number] 12:08:00 Test Item Value Reference Range Interpretation Comments GLUBED (test code = GLUBED) 214 mg/dL 70-110 H [id number] 06:53:00 Test Item Value Reference Range Interpretation Comments GLUBED (test code = GLUBED) 166 mg/dL 70-110 H [id number] 20:16:00 Test Item Value Reference Range Interpretation Comments GLUBED (test code = GLUBED) 274 mg/dL 70-110 H [id number] 12:00:00 Test Item Value Reference Range Interpretation Comments GLUBED (test code = GLUBED) 190 mg/dL 70-110 H [id number] 07:37:00 Test Item Value Reference Range Interpretation Comments GLUBED (test code = GLUBED) 183 mg/dL 70-110 H [id number] 16:55:00 Test Item Value Reference Range Interpretation Comments GLUBED (test code = GLUBED) 231 mg/dL 70-110 H [id number] 12:04:00 Test Item Value Reference Range Interpretation Comments GLUBED (test code = GLUBED) 168 mg/dL 70-110 H [id number] 08:23:00 Test Item Value Reference Range Interpretation Comments GLUBED (test code = GLUBED) 163 mg/dL 70-110 H [id number] 20:03:00 Test Item Value Reference Range Interpretation Comments GLUBED (test code = GLUBED) 222 mg/dL 70-110 H [id number] 16:42:00 Test Item Value Reference Range Interpretation Comments GLUBED (test code = GLUBED) 168 mg/dL 70-110 H [id number] 10:37:00 Test Item Value Reference Range Interpretation Comments GLUBED (test code = GLUBED) 199 mg/dL 70-110 H [id number] 07:16:00 Test Item Value Reference Range Interpretation Comments GLUBED (test code = GLUBED) 159 mg/dL 70-110 H [id number] 20:13:00 Test Item Value Reference Range Interpretation Comments GLUBED (test code = GLUBED) 225 mg/dL 70-110 H [id number] 16:33:00 Test Item Value Reference Range Interpretation Comments GLUBED (test code = GLUBED) 213 mg/dL 70-110 H [id number] 10:34:00 Test Item Value Reference Range Interpretation Comments GLUBED (test code = GLUBED) 180 mg/dL 70-110 H COMPREHENSIVE METABOLIC [id number] 08:07:00 Test Item Value Reference Range Interpretation Comments SODIUM (test code = NA) 141 mmol/l 134.0-147.0 N POTASSIUM (test code = K) 3.4 mmol/L 3.6-5.2 L CHLORIDE (test code = CL) 110 mmol/l 98.0-107.0 H CARBON DIOXIDE (test code = CO2) 19.2 mmol/l 21.0-33.0 L ANION GAP (test code = GAP) 15.2 0-20 N GLUCOSE (test code = GLU) 127 mg/dl 70.0-110.0 H BLOOD UREA NITROGEN (test code = 7 mg/dl 7.0-18.0 N BUN) CREATININE (test code = CREAT) 0.70 mg/dL 0.60-1.30 N GFR NON BLACK (test code = 116 mL/min 70-80 H GFRNONBLACK) GFR BLACK (test code = GFRBLACK) 141 mL/min 85-97 H TOTAL PROTEIN (test code = PROT) 5.2 GM/DL 6.0-8.1 L ALBUMIN (test code = ALB) 2.1 gm/dL 3.2-4.7 L CALCIUM (test code = CA) 9.0 mg/dl 8.0-10.5 N BILIRUBIN TOTAL (test code = 0.4 mg/dl 0.0-1.0 N BILT) SGOT/AST (test code = AST) 13 Units/L 15-37 L SGPT/ALT (test code = ALT) 12 Units/L 12.0-78.0 N ALKALINE PHOSPHATASE TOTAL (test 56 Units/L 50.0-136.0 N code = ALKP) Specimen comments: .[id number] 08:07:00 Test Item Value Reference Range Interpretation Comments MAGNESIUM (test code = MAG) 1.9 mg/dl 1.8-2.4 N Specimen comments: .CBC W/AUTO [id number] 07:51:00 Test Item Value Reference Range Interpretation Comments WHITE BLOOD CELL (test code = 4.2 K/mm3 4.5-11.0 L WBC) RED BLOOD CELL (test code = 3.20 M/mm3 4.40-5.90 L RBC) HEMOGLOBIN (test code = HGB) 9.7 gm/dL 13.0-17.0 L HEMATOCRIT (test code = HCT) 31.1 % 36.0-48.0 L MEAN CELL VOLUME (test code = 97.2 UM3 80.0-94.0 H MCV) MEAN CELL HGB (test code = MCH) 30.3 UUG 25.5-32.5 N MEAN CELL HGB CONCETRATION 31.2 gm/dL 29.0-35.5 N (test code = MCHC) RED CELL DISTRIBUTION WIDTH 16.1 % 11.5-15.0 H (test code = RDW) RED CELL DISTRIBUTION WIDTH SD 56.2 fL 34.8-50.2 H (test code = RDW-SD) PLATELET COUNT (test code = 180 K/mm3 150-400 PLT) MEAN PLATELET VOLUME (test code 10.6 fl 7.4-10.4 H = MPV) NEUTROPHIL % (test code = NT%) 49.4 % 49.0-76.0 N IMMATURE GRANULOCYTE % (test 0.5 % 0.0-0.4 H code = IG%) LYMPHOCYTE % (test code = LY%) 19.0 % 23.0-38.0 L MONOCYTE % (test code = MO%) 25.1 % 1.0-10.0 H EOSINOPHIL % (test code = EO%) 5.5 % 1.0-5.0 H BASOPHIL % (test code = BA%) 0.5 % 0.0-1.0 N NUCLEATED RBC % (test code = 0.0 % 0.0-0.1 N NRBC%) NEUTROPHIL # (test code = NT#) 2.1 K/mm3 2.4-6.3 L IMMATURE GRANULOCYTE # (test 0.02 x10 3/uL 0.00-0.07 N code = IG#) LYMPHOCYTE # (test code = LY#) 0.8 K/mm3 1.2-4.0 L MONOCYTE # (test code = MO#) 1.1 K/mm3 0.0-0.6 H EOSINOPHIL # (test code = EO#) 0.2 K/MM3 0.0-0.7 N BASOPHIL # (test code = BA#) 0.0 K/mm3 0.0-0.2 N NUCLEATED RBC # (test code = 0.00 X10 3uL 0.00-0.01 N NRBC#) [id number] 07:08:00 Test Item Value Reference Range Interpretation Comments GLUBED (test code = GLUBED) 125 mg/dL 70-110 H [id number] 04:04:00 Test Item Value Reference Range Interpretation Comments GLUBED (test code = GLUBED) 138 mg/dL 70-110 H [id number] 04:04:00 Test Item Value Reference Range Interpretation Comments GLUBED (test code = GLUBED) 144 mg/dL 70-110 H URINALYSIS [id number] 22:30:00 Test Item Value Reference Range Interpretation Comments UA COLOR (test code = COLORLESS COLU) UA APPEARANCE (test code CLEAR = APPU) UA GLUCOSE DIPSTICK (test 100 mg/dl mg/dl NORMAL A code = DGLUU) UA BILIRUBIN DIPSTICK NEGATIVE mg/dL NEGATIVE (test code = BILU) UA KETONE DIPSTICK (test NEGATIVE mg/dl NEGATIVE code = KETU) UA SPECIFIC GRAVITY (test 1.010 1.000-1.030 code = SGU) UA BLOOD DIPSTICK (test 10 Beck/micL Beck/micL NEGATIVE A code = BRIAN) UA PH DIPSTICK (test code 5.0 5.0-9.0 = KRIS) UA PROTEIN DIPSTICK (test NEGATIVE mg/dl NEGATIVE code = PROU) UA UROBILINIOGEN DIPSTICK NORMAL mg/dl NORMAL (test code = URO) UA NITRITE DIPSTICK (test NEGATIVE NEGATIVE code = COSMO) UA LEUKOCYTE ESTERASE NEGATIVE Martha/micL NEGATIVE DIPSTICK (test code = LEUU) UA WBC (test code = WBCU) 0-3 WBC/HPF NONE UA RBC (test code = RBCU) 0-2 RBC/HPF 0-3 UA EPITHELIAL CELLS (test 0-3 EPI/HPF 0-3 code = EPIU) UA BACTERIA (test code = FEW NONE BACU) UA AMORPHOUS SEDIMENT FEW NONE (test code = AMORU) Specimen comments: Straight cath if unable to obtain Clean CatchURINALYSIS [id number] 22:14:00 Test Item Value Reference Range Interpretation Comments UA COLOR (test code = COLORLESS COLU) UA APPEARANCE (test code CLEAR = APPU) UA GLUCOSE DIPSTICK (test 100 mg/dl mg/dl NORMAL A code = DGLUU) UA BILIRUBIN DIPSTICK NEGATIVE mg/dL NEGATIVE (test code = BILU) UA KETONE DIPSTICK (test NEGATIVE mg/dl NEGATIVE code = KETU) UA SPECIFIC GRAVITY (test 1.010 1.000-1.030 code = SGU) UA BLOOD DIPSTICK (test 10 Beck/micL Beck/micL NEGATIVE A code = BRIAN) UA PH DIPSTICK (test code 5.0 5.0-9.0 = KRIS) UA PROTEIN DIPSTICK (test NEGATIVE mg/dl NEGATIVE code = PROU) UA UROBILINIOGEN DIPSTICK NORMAL mg/dl NORMAL (test code = URO) UA NITRITE DIPSTICK (test NEGATIVE NEGATIVE code = COSMO) UA LEUKOCYTE ESTERASE NEGATIVE Martha/micL NEGATIVE DIPSTICK (test code = LEUU) UA WBC (test code = WBCU) WBC/HPF NONE UA RBC (test code = RBCU) RBC/HPF 0-3 UA EPITHELIAL CELLS (test EPI/HPF 0-3 code = EPIU) UA BACTERIA (test code = NONE BACU) Specimen comments: Straight cath if unable to obtain Clean [id number] 20:18:00 Test Item Value Reference Range Interpretation Comments GLUBED (test code = GLUBED) 132 mg/dL 70-110 H [id number] 10:52:00 Test Item Value Reference Range Interpretation Comments GLUBED (test code = GLUBED) 130 mg/dL 70-110 H [id number] 05:22:00 Test Item Value Reference Range Interpretation Comments GLUBED (test code = GLUBED) 102 mg/dL 70-110 N BASIC METABOLIC [id number] 04:53:00 Test Item Value Reference Range Interpretation Comments SODIUM (test code = NA) 142 mmol/l 134.0-147.0 N POTASSIUM (test code = K) 3.1 mmol/L 3.6-5.2 L CHLORIDE (test code = CL) 111 mmol/l 98.0-107.0 H CARBON DIOXIDE (test code = CO2) 20.7 mmol/l 21.0-33.0 L ANION GAP (test code = GAP) 13.4 0-20 N GLUCOSE (test code = GLU) 106 mg/dl 70.0-110.0 N BLOOD UREA NITROGEN (test code = 7 mg/dl 7.0-18.0 N BUN) CREATININE (test code = CREAT) 0.81 mg/dL 0.60-1.30 N GFR NON BLACK (test code = 98 mL/min 70-80 H GFRNONBLACK) GFR BLACK (test code = GFRBLACK) 119 mL/min 85-97 H CALCIUM (test code = CA) 8.9 mg/dl 8.0-10.5 N LINE [id number] 04:53:00 Test Item Value Reference Range Interpretation Comments MAGNESIUM (test code = MAG) 2.0 mg/dl 1.8-2.4 N LINE DRAWCBC W/AUTO [id number] 04:40:00 Test Item Value Reference Range Interpretation Comments WHITE BLOOD CELL (test code = 5.0 K/mm3 4.5-11.0 N WBC) RED BLOOD CELL (test code = 3.20 M/mm3 4.40-5.90 L RBC) HEMOGLOBIN (test code = HGB) 9.9 gm/dL 13.0-17.0 L HEMATOCRIT (test code = HCT) 31.0 % 36.0-48.0 L MEAN CELL VOLUME (test code = 96.9 UM3 80.0-94.0 H MCV) MEAN CELL HGB (test code = MCH) 30.9 UUG 25.5-32.5 N MEAN CELL HGB CONCETRATION 31.9 gm/dL 29.0-35.5 N (test code = MCHC) RED CELL DISTRIBUTION WIDTH 15.5 % 11.5-15.0 H (test code = RDW) RED CELL DISTRIBUTION WIDTH SD 54.6 fL 34.8-50.2 H (test code = RDW-SD) PLATELET COUNT (test code = 131 K/mm3 150-400 L PLT) MEAN PLATELET VOLUME (test code 10.7 fl 7.4-10.4 H = MPV) NEUTROPHIL % (test code = NT%) 46.7 % 49.0-76.0 L IMMATURE GRANULOCYTE % (test 0.8 % 0.0-0.4 H code = IG%) LYMPHOCYTE % (test code = LY%) 17.9 % 23.0-38.0 L MONOCYTE % (test code = MO%) 30.2 % 1.0-10.0 H EOSINOPHIL % (test code = EO%) 4.2 % 1.0-5.0 N BASOPHIL % (test code = BA%) 0.2 % 0.0-1.0 N NUCLEATED RBC % (test code = 0.0 % 0.0-0.1 N NRBC%) NEUTROPHIL # (test code = NT#) 2.3 K/mm3 2.4-6.3 L IMMATURE GRANULOCYTE # (test 0.04 x10 3/uL 0.00-0.07 N code = IG#) LYMPHOCYTE # (test code = LY#) 0.9 K/mm3 1.2-4.0 L MONOCYTE # (test code = MO#) 1.5 K/mm3 0.0-0.6 H EOSINOPHIL # (test code = EO#) 0.2 K/MM3 0.0-0.7 N BASOPHIL # (test code = BA#) 0.0 K/mm3 0.0-0.2 N NUCLEATED RBC # (test code = 0.00 X10 3uL 0.00-0.01 N NRBC#) LINE [id number] 01:57:00 Test Item Value Reference Range Interpretation Comments GLUBED (test code = GLUBED) 119 mg/dL 70-110 H [id number] 23:29:00 Test Item Value Reference Range Interpretation Comments GLUBED (test code = GLUBED) 118 mg/dL 70-110 H [id number] 20:02:00 Test Item Value Reference Range Interpretation Comments GLUBED (test code = GLUBED) 129 mg/dL 70-110 H BASIC METABOLIC [id number] 10:20:00 Test Item Value Reference Range Interpretation Comments SODIUM (test code = NA) 143 mmol/l 134.0-147.0 N POTASSIUM (test code = K) 2.6 mmol/L 3.6-5.2 L CHLORIDE (test code = CL) 111 mmol/l 98.0-107.0 H CARBON DIOXIDE (test code = CO2) 21.0 mmol/l 21.0-33.0 N ANION GAP (test code = GAP) 13.6 0-20 N GLUCOSE (test code = GLU) 152 mg/dl 70.0-110.0 H BLOOD UREA NITROGEN (test code = 8 mg/dl 7.0-18.0 N BUN) CREATININE (test code = CREAT) 0.84 mg/dL 0.60-1.30 N GFR NON BLACK (test code = 94 mL/min 70-80 H GFRNONBLACK) GFR BLACK (test code = GFRBLACK) 114 mL/min 85-97 H CALCIUM (test code = CA) 8.8 mg/dl 8.0-10.5 N LINE [id number] 10:20:00 Test Item Value Reference Range Interpretation Comments MAGNESIUM (test code = MAG) 1.6 mg/dl 1.8-2.4 L LINE DRAWCBC W/AUTO [id number] 09:48:00 Test Item Value Reference Range Interpretation Comments WHITE BLOOD CELL (test code = 5.3 K/mm3 4.5-11.0 N WBC) RED BLOOD CELL (test code = 3.15 M/mm3 4.40-5.90 L RBC) HEMOGLOBIN (test code = HGB) 9.8 gm/dL 13.0-17.0 L HEMATOCRIT (test code = HCT) 30.0 % 36.0-48.0 L MEAN CELL VOLUME (test code = 95.2 UM3 80.0-94.0 H MCV) MEAN CELL HGB (test code = MCH) 31.1 UUG 25.5-32.5 N MEAN CELL HGB CONCETRATION 32.7 gm/dL 29.0-35.5 N (test code = MCHC) RED CELL DISTRIBUTION WIDTH 15.6 % 11.5-15.0 H (test code = RDW) RED CELL DISTRIBUTION WIDTH SD 53.8 fL 34.8-50.2 H (test code = RDW-SD) PLATELET COUNT (test code = 99 K/mm3 150-400 L PLT) MEAN PLATELET VOLUME (test code 10.7 fl 7.4-10.4 H = MPV) NEUTROPHIL % (test code = NT%) 51.6 % 49.0-76.0 N IMMATURE GRANULOCYTE % (test 0.9 % 0.0-0.4 H code = IG%) LYMPHOCYTE % (test code = LY%) 17.1 % 23.0-38.0 L MONOCYTE % (test code = MO%) 27.4 % 1.0-10.0 H EOSINOPHIL % (test code = EO%) 2.6 % 1.0-5.0 N BASOPHIL % (test code = BA%) 0.4 % 0.0-1.0 N NUCLEATED RBC % (test code = 0.6 % 0.0-0.1 H NRBC%) NEUTROPHIL # (test code = NT#) 2.7 K/mm3 2.4-6.3 N IMMATURE GRANULOCYTE # (test 0.05 x10 3/uL 0.00-0.07 N code = IG#) LYMPHOCYTE # (test code = LY#) 0.9 K/mm3 1.2-4.0 L MONOCYTE # (test code = MO#) 1.5 K/mm3 0.0-0.6 H EOSINOPHIL # (test code = EO#) 0.1 K/MM3 0.0-0.7 N BASOPHIL # (test code = BA#) 0.0 K/mm3 0.0-0.2 N NUCLEATED RBC # (test code = 0.03 X10 3uL 0.00-0.01 H NRBC#) LINE [id number] 05:23:00 Test Item Value Reference Range Interpretation Comments GLUBED (test code = GLUBED) 121 mg/dL 70-110 H [id number] 00:40:00 Test Item Value Reference Range Interpretation Comments GLUBED (test code = GLUBED) 129 mg/dL 70-110 H [id number] 21:35:00 Test Item Value Reference Range Interpretation Comments GLUBED (test code = GLUBED) 148 mg/dL 70-110 H VANCOMYCIN [id number] 21:30:00 Test Item Value Reference Range Interpretation Comments VANCOMYCIN TROUGH 11.8 mcg/mL 10-20 N Other dise ase (test code = VANCT) associat ed reference ranges: 10 - 15 mcg/mL Celluli tis, urinary tract infection 15 - 20 mcg/mL Bactere galen, infective endocarditis, osteomyelitis, meningitis, pneumonia, lizzy re skin/soft tissu e infection, spi nal abscess Specimen comments: PLEASE DRAW 30-1-60 MIN PRIOR TO DOSEComments to Servicer: MAKE SURE BAG IS NOT [id number] 17:19:00 Test Item Value Reference Range Interpretation Comments GLUBED (test code = GLUBED) 154 mg/dL 70-110 H [id number] 15:37:00 Test Item Value Reference Range Interpretation Comments GLUBED (test code = GLUBED) 119 mg/dL 70-110 H [id number] 11:16:00 Test Item Value Reference Range Interpretation Comments GLUBED (test code = GLUBED) 102 mg/dL 70-110 N [id number] 07:06:00 Test Item Value Reference Range Interpretation Comments GLUBED (test code = GLUBED) 97 mg/dL 70-110 N [id number] 05:44:00 Test Item Value Reference Range Interpretation Comments GLUBED (test code = GLUBED) 103 mg/dL 70-110 N BASIC METABOLIC [id number] 07:13:00 Test Item Value Reference Range Interpretation Comments SODIUM (test code = NA) 148 mmol/l 134.0-147.0 H POTASSIUM (test code = K) 3.2 mmol/L 3.6-5.2 L CHLORIDE (test code = CL) 115 mmol/l 98.0-107.0 H CARBON DIOXIDE (test code = CO2) 21.1 mmol/l 21.0-33.0 N ANION GAP (test code = GAP) 15.1 0-20 N GLUCOSE (test code = GLU) 104 mg/dl 70.0-110.0 N BLOOD UREA NITROGEN (test code = 11 mg/dl 7.0-18.0 N BUN) CREATININE (test code = CREAT) 0.89 mg/dL 0.60-1.30 N GFR NON BLACK (test code = 88 mL/min 70-80 H GFRNONBLACK) GFR BLACK (test code = GFRBLACK) 107 mL/min 85-97 H CALCIUM (test code = CA) 8.3 mg/dl 8.0-10.5 N [id number] 07:13:00 Test Item Value Reference Range Interpretation Comments LIPASE (test code = LIP) 360 Units/L 65.0-230.0 H ARTERIAL BLOOD [id number] 16:13:00 Test Item Value Reference Range Interpretation Comments ARTERIAL BLOOD GAS PH 7.363 7.350-7.450 N (test code = PHA) ARTERIAL BLOOD GAS PCO2 29.4 mmHg 35.0-45.0 L (test code = PCO2A) ARTERIAL BLOOD GAS PO2 126.8 mmHg >80.0 (test code = PO2A) BICARBONATE TOTAL HCO3 16.3 MMOL/L 22.0-26.0 L (test code = HCO3) BASE EXCESS (test code = -7.8 MMOL/L -4.0-4.0 L MIGUEL ANGEL) ABG O2 SATURATION (test 99.0 % 92.0-99.0 N code = SATA) FIO2 (test code = FIO2A) 30.0 ABG VENT MODE (test code = CPAP MODEA) ABG PEEP (test code = 3.0 cmH2O PEEPA) ABG PRESSURE SUPPORT (test 12 cmH2O code = PSABG) ABG SITE (test code = RR SITEA) ALLENS TEST (test code = Yes ALLENS) TOTAL HGB (test code = 12.3 g/dL 12.0-16.0 N THB) CARBOXYHEMOGLOBIN (test 0.8 % THgb 0.0-1.5 N code = HOHGBT) METHEMOGLOBIN (test code = 0.3 % 0.0-1.5 N N ORMAL METHGB) <2.0POTENTIALLY TOXIC >20.0 [id number] 16:13:00 Test Item Value Reference Range Interpretation Comments PaO2/FiO2 (test code = [id number]) 422.60 mm/Hg ARTERIAL BLOOD [id number] 16:12:00 Test Item Value Reference Range Interpretation Comments ARTERIAL BLOOD GAS PH 7.363 7.350-7.450 N (test code = PHA) ARTERIAL BLOOD GAS PCO2 29.4 mmHg 35.0-45.0 L (test code = PCO2A) ARTERIAL BLOOD GAS PO2 126.8 mmHg >80.0 (test code = PO2A) BICARBONATE TOTAL HCO3 16.3 MMOL/L 22.0-26.0 L (test code = HCO3) BASE EXCESS (test code = -7.8 MMOL/L -4.0-4.0 L MIGUEL ANGEL) ABG O2 SATURATION (test 99.0 % 92.0-99.0 N code = SATA) FIO2 (test code = FIO2A) 30.0 ABG VENT MODE (test code = CPAP MODEA) ABG PEEP (test code = 3.0 cmH2O PEEPA) ABG PRESSURE SUPPORT (test 12 cmH2O code = PSABG) ABG SITE (test code = RR SITEA) ALLENS TEST (test code = Yes ALLENS) TOTAL HGB (test code = 12.3 g/dL 12.0-16.0 N THB) CARBOXYHEMOGLOBIN (test 0.8 % THgb 0.0-1.5 N code = HOHGBT) METHEMOGLOBIN (test code = 0.3 % 0.0-1.5 N N ORMAL METHGB) <2.0POTENTIALLY TOXIC >20.0 PaO2/[id number] 16:12:00 Test Item Value Reference Range Interpretation Comments PaO2/FiO2 (test code = [id number]) mm/Hg CBC W/AUTO [id number] 11:07:00 Test Item Value Reference Range Interpretation Comments WHITE BLOOD CELL (test 7.2 K/mm3 4.5-11.0 N code = WBC) RED BLOOD CELL (test 3.01 M/mm3 4.40-5.90 L code = RBC) HEMOGLOBIN (test code 9.4 gm/dL 13.0-17.0 L = HGB) HEMATOCRIT (test code 28.9 % 36.0-48.0 L = HCT) MEAN CELL VOLUME (test 96.0 UM3 80.0-94.0 H code = MCV) MEAN CELL HGB (test 31.2 UUG 25.5-32.5 N code = MCH) MEAN CELL HGB 32.5 gm/dL 29.0-35.5 N CONCETRATION (test code = MCHC) RED CELL DISTRIBUTION 15.2 % 11.5-15.0 H WIDTH (test code = RDW) RED CELL DISTRIBUTION 53.0 fL 34.8-50.2 H WIDTH SD (test code = RDW-SD) PLATELET COUNT (test 82 K/mm3 150-400 L PLATELE TS APPEARED code = PLT) TO BE DECREASED ON SCANNED SMEARFE W PLATELETS APPEA RED TO BE LARGE MEAN PLATELET VOLUME 10.8 fl 7.4-10.4 H (test code = MPV) NEUTROPHIL % (test 66.5 % 49.0-76.0 N code = NT%) IMMATURE GRANULOCYTE % 5.3 % 0.0-0.4 H (test code = IG%) LYMPHOCYTE % (test 17.3 % 23.0-38.0 L code = LY%) MONOCYTE % (test code 9.6 % 1.0-10.0 N = MO%) EOSINOPHIL % (test 0.6 % 1.0-5.0 L code = EO%) BASOPHIL % (test code 0.7 % 0.0-1.0 N = BA%) NUCLEATED RBC % (test 0.0 % 0.0-0.1 N code = NRBC%) NEUTROPHIL # (test 4.8 K/mm3 2.4-6.3 N code = NT#) IMMATURE GRANULOCYTE # 0.38 x10 3/uL 0.00-0.07 H (test code = IG#) LYMPHOCYTE # (test 1.3 K/mm3 1.2-4.0 N code = LY#) MONOCYTE # (test code 0.7 K/mm3 0.0-0.6 H = MO#) EOSINOPHIL # (test 0.0 K/MM3 0.0-0.7 N code = EO#) BASOPHIL # (test code 0.1 K/mm3 0.0-0.2 N = BA#) NUCLEATED RBC # (test 0.00 X10 3uL 0.00-0.01 N code = NRBC#) BASIC METABOLIC [id number] 06:22:00 Test Item Value Reference Range Interpretation Comments SODIUM (test code = NA) 148 mmol/l 134.0-147.0 H POTASSIUM (test code = K) 2.9 mmol/L 3.6-5.2 L CHLORIDE (test code = CL) 117 mmol/l 98.0-107.0 H CARBON DIOXIDE (test code = CO2) 21.9 mmol/l 21.0-33.0 N ANION GAP (test code = GAP) 12.0 0-20 N GLUCOSE (test code = GLU) 96 mg/dl 70.0-110.0 N BLOOD UREA NITROGEN (test code = 12 mg/dl 7.0-18.0 N BUN) CREATININE (test code = CREAT) 1.04 mg/dL 0.60-1.30 N GFR NON BLACK (test code = 74 mL/min 70-80 N GFRNONBLACK) GFR BLACK (test code = GFRBLACK) 89 mL/min 85-97 N CALCIUM (test code = CA) 8.4 mg/dl 8.0-10.5 N [id number] 06:22:00 Test Item Value Reference Range Interpretation Comments LIPASE (test code = LIP) 322 Units/L 65.0-230.0 H CBC W/AUTO [id number] 05:53:00 Test Item Value Reference Range Interpretation Comments WHITE BLOOD CELL (test code = 7.2 K/mm3 4.5-11.0 N WBC) RED BLOOD CELL (test code = 3.01 M/mm3 4.40-5.90 L RBC) HEMOGLOBIN (test code = HGB) 9.4 gm/dL 13.0-17.0 L HEMATOCRIT (test code = HCT) 28.9 % 36.0-48.0 L MEAN CELL VOLUME (test code = 96.0 UM3 80.0-94.0 H MCV) MEAN CELL HGB (test code = MCH) 31.2 UUG 25.5-32.5 N MEAN CELL HGB CONCETRATION 32.5 gm/dL 29.0-35.5 N (test code = MCHC) RED CELL DISTRIBUTION WIDTH 15.2 % 11.5-15.0 H (test code = RDW) RED CELL DISTRIBUTION WIDTH SD 53.0 fL 34.8-50.2 H (test code = RDW-SD) PLATELET COUNT (test code = 82 K/mm3 150-400 L PLT) MEAN PLATELET VOLUME (test code 10.8 fl 7.4-10.4 H = MPV) NEUTROPHIL % (test code = NT%) 66.5 % 49.0-76.0 N IMMATURE GRANULOCYTE % (test 5.3 % 0.0-0.4 H code = IG%) LYMPHOCYTE % (test code = LY%) 17.3 % 23.0-38.0 L MONOCYTE % (test code = MO%) 9.6 % 1.0-10.0 N EOSINOPHIL % (test code = EO%) 0.6 % 1.0-5.0 L BASOPHIL % (test code = BA%) 0.7 % 0.0-1.0 N NUCLEATED RBC % (test code = 0.0 % 0.0-0.1 N NRBC%) NEUTROPHIL # (test code = NT#) 4.8 K/mm3 2.4-6.3 N IMMATURE GRANULOCYTE # (test 0.38 x10 3/uL 0.00-0.07 H code = IG#) LYMPHOCYTE # (test code = LY#) 1.3 K/mm3 1.2-4.0 N MONOCYTE # (test code = MO#) 0.7 K/mm3 0.0-0.6 H EOSINOPHIL # (test code = EO#) 0.0 K/MM3 0.0-0.7 N BASOPHIL # (test code = BA#) 0.1 K/mm3 0.0-0.2 N NUCLEATED RBC # (test code = 0.00 X10 3uL 0.00-0.01 N NRBC#) - XR CHEST 1 [id number] 01:10:00 [facility] : 1945 Sex: M FAX: Michael Holm MD [phone] [place]: St: [facility] FAX: Jeffery Mcnally [phone] [facility] 1945 [facility]S: 75[facility]M [address] [facility] Unit #: [id number] Loc: [address] Phys: [place] [id number] Acct: [id number] Dis Date: Status: ADM IN PHONE #: [phone] Exam Date: 09/02/2020 0051 FAX #: [phone] R irvin: NGT PLACEMENT EXAMS: CPT CODE: [id number] XR CHEST 1 V 85355 EXAMINATION: - XR CHEST 1 V LOCATION: H61 INDICATION/CLINICAL HISTORY: NGT PLACEMENT COMPARISON: Chest x- ray 09/01/2020. TECHNIQUE: AP viewof the chest. FINDINGS: NG tube is again seen. The tip courses inferiorly out of the nnixe-rb-dlzp into the distal stomach. Cardiac silhouette is normal in size. There are unchanged strandy bibasilar opacities, compatible with subsegmental atelectasis. No new airspace disease. No appreciable pneumothorax or pleural effusion. Right PICC and endotracheal tube are unchanged. IMPRESSION: 1. NG tube tip courses inferiorly out of the xaigg-wx-mmkg and is likely located in the distal stomach. 2. Unchanged bibasilar subsegmental atelectasis. at 0110 Reported and signed by: Stacy Gil CC: Martha Llamas MD; Enedina Cantrell MD Technologist: ESVIN PENA Trnscrd Date/Time/By: 09/02/2020 (0110) : By: [email or web address] PAGE 1 Signed Report FAX: Michael Holm MD [phone] [place]: St: [facility] FAX: Jeffery Gann [phone] Name: ALTHEA TOVAR [facility] : 1945 Age/S: 75/M [address] [facility] Unit #: [id number] Loc: SergPOF1 [place], [place] Phys: [place] [id number] Acct: [id number] Dis Date: Status: ADM IN PHONE #: [phone] Exam Date: 09/02/202050 FAX #: [phone] Reason: NGT PLACEMENT EXAMS: CPT CODE: [id number] XR CHEST 1 V [id number] <Continued> Orig Print D/T: S: 09/02/2020 (0110) PAGE 2 Signed ReportRENAL FUNCTION [id number] 16:42:00 Test Item Value Reference Range Interpretation Comments SODIUM (test code = NA) 148 mmol/l 134.0-147.0 H POTASSIUM (test code = K) 3.1 mmol/L 3.6-5.2 L CHLORIDE (test code = CL) 113 mmol/l 98.0-107.0 H CARBON DIOXIDE (test code = CO2) 20.5 mmol/l 21.0-33.0 L ANION GAP (test code = GAP) 17.6 0-20 N GLUCOSE (test code = GLU) 162 mg/dl 70.0-110.0 H BLOOD UREA NITROGEN (test code = 13 mg/dl 7.0-18.0 N BUN) CREATININE (test code = CREAT) 1.29 mg/dL 0.60-1.30 N GFR NON BLACK (test code = 58 mL/min 70-80 L GFRNONBLACK) GFR BLACK (test code = GFRBLACK) 70 mL/min 85-97 L ALBUMIN (test code = ALB) 2.3 gm/dL 3.2-4.7 L CALCIUM (test code = CA) 7.9 mg/dl 8.0-10.5 L PHOSPHOROUS (test code = PHOS) 1.9 mg/dl 2.5-4.9 L [id number] 16:42:00 Test Item Value Reference Range Interpretation Comments MAGNESIUM (test code = MAG) 1.9 mg/dl 1.8-2.4 N VANCOMYCIN [id number] 16:42:00 Test Item Value Reference Range Interpretation Comments VANCOMYCIN TROUGH 10.7 mcg/mL 10-20 N Other dise ase (test code = VANCT) associat ed reference ranges: 10 - 15 mcg/mL Celluli tis, urinary tract infection 15 - 20 mcg/mL Bactere galen, infective endocarditis, osteomyelitis, meningitis, pneumonia, lizzy re skin/soft tissu e infection, spi nal abscess Specimen comments: DRAW PRIOR AT 1600Comments to Servicer: DRAW AT 1600, DO NOT CANCEL- XR CHEST 1 [id number] 10:50:00 [facility] : 1945 Sex: M FAX: Barbara Lund MD [phone] [place]: St: [facility] FAX: Jeffery Mcnally [phone] Name: ALTHEA TOVAR [facility] : 1945 Age/S: 75/M [address] [facility] Unit #: [id number] Loc: [address] Phys: [place] [id number] Acct: [id number] Dis Date: Status: ADM IN PHONE #: [phone] Exam Date: 09/01/2020 1039 FAX #: [phone] Reason: PICC PLACEMENT EXAMS: CPT CODE: [id number] XR CHEST 1 V [id number] Single View Chest. Location: S17 Clinical Indication: 75-year-old with PICC placement Comparison: Same date Findings: An AP view of the chest was obtained. A right arm PICC has been placed, well positioned in the mid SVC. Heart size is normal. There is bibasilar atelectasis, slightly increased. The right hemidiaphragm is minimally elevated. Heart size is stable. No pneumothorax. No acute osseous abnormality. Endotracheal tube and NG tube are again noted. Impression: Interval placement of a right arm PICC, well positioned. at 1050 Reported and signed by: Noe Olivarez M.D. CC: Barbara Mcintosh MD; Enedina Cantrell MDTechnologist: RANDALL PATRICIA Trnscrd Date/Time/By: 09/01/2020 (1680) : By: [email or web address] PAGE 1 Signed Report FAX: Barbara Lund MD [phone] [place]: St: ADM FAX: Jeffery Gann [phone] Name: ALTHEA TOVAR JR [facility] : 4Age/S: 75/M [address] [facility] Unit #: [id number] Loc: E[address] Phys: [place] [address] Acct: [id number] Dis Date: Status: ADM IN PHONE #:[phone] Exam Date: 09/01/2020 1039 FAX #: [phone] Reason: PICC PLACEMENT EXAMS: CPT CODE: [id number] XR CHEST 1 V 07069 <Continued> Orig Print D/T: S: 09/01/2020 (5273) PAGE 2 Signed Report- XR CHEST 1 [id number] 07:56:00 [facility] : 1945 Sex: M FAX: Jeffery Gann [phone] [place]: St: ADM Name: RANCHOHORTENCIAALTHEA KELLEY [facility] : 1945 Age/S: 75/M [address] [facility] Unit #: [id number] Loc: E.[address] Phys: [place] [address] Acct: [id number] Dis Date: Status: ADM IN PHONE #: [phone] Exam Date: 09/01/2020 0535 FAX #: [phone] Reason: NG TUBE PLACEMENT EXAMS: CPT CODE: [id number] XR CHEST 1 V 24660 EXAM: - XR CHEST 1 V Location code:C3 HISTORY: NG TUBE PLACEMENT COMPARISON: 08/31/2020 FINDINGS: Single AP view of the chest is provided. Endotracheal tube is unchanged.Enteric tube tip projects about the body of the stomach with side hole below the GE junction.No pneumothorax is seen. There is no new consolidation. No additional interval change. IMPRESSION: 1. Enteric tube tip projects about the body of the stomach with side hole below the GE junction. at 0756 Reported and signed by: Daniel Wilks M.D. CC: Enedina Cantrell MD Technologist: DAILY HIDALGO; ESVIN PENA Trnscrd Date/Time/By: 09/01/2020 (0756) : By: [email or web address] PAGE 1 Signed Report FAX: Jeffery Gann [phone] [place]: St: ADM Name: ALTHEA TOVAR [facility] : 1945 Age/S: 75/M [address] [facility] Unit #: [id number] Loc: [address] Phys: [place] [address] Acct: [id number] Dis Date: Status: ADM IN PHONE #: [phone] Exam Date: 09/01/2020534 FAX #: [phone] Reason: NG TUBE PLACEMENT EXAMS: CPT CODE: [id number] XR CHEST 1 V 65322 <Continued> Orig Print D/T: S: 09/01/2020 (075 9) PAGE 2 Signed ReportCOMPREHENSIVE METABOLIC [id number] 06:08:00 Test Item Value Reference Range Interpretation Comments SODIUM (test code = NA) 145 mmol/l 134.0-147.0 N POTASSIUM (test code = K) 3.2 mmol/L 3.6-5.2 L CHLORIDE (test code = CL) 113 mmol/l 98.0-107.0 H CARBON DIOXIDE (test code = CO2) 20.6 mmol/l 21.0-33.0 L ANION GAP (test code = GAP) 14.6 0-20 N GLUCOSE (test code = GLU) 163 mg/dl 70.0-110.0 H BLOOD UREA NITROGEN (test code = 13 mg/dl 7.0-18.0 N BUN) CREATININE (test code = CREAT) 1.44 mg/dL 0.60-1.30 H GFR NON BLACK (test code = 51 mL/min 70-80 L GFRNONBLACK) GFR BLACK (test code = GFRBLACK) 61 mL/min 85-97 L TOTAL PROTEIN (test code = PROT) 5.0 gm/dL 6.4-8.2 L ALBUMIN (test code = ALB) 2.3 gm/dl 3.2-4.7 L CALCIUM (test code = CA) 9.1 mg/dl 8.0-10.5 N BILIRUBIN TOTAL (test code = 0.5 mg/dl 0.0-1.0 N BILT) SGOT/AST (test code = AST) 23 Units/L 15-37 N SGPT/ALT (test code = ALT) 16 Units/L 12.0-78.0 N ALKALINE PHOSPHATASE TOTAL (test 60 Units/L 50.0-136.0 N code = ALKP) [id number] 06:08:00 Test Item Value Reference Range Interpretation Comments LIPASE (test code = LIP) 680 Units/L 65.0-230.0 H [id number] 06:08:00 Test Item Value Reference Range Interpretation Comments MAGNESIUM (test code = MAG) 2.1 mg/dl 1.8-2.4 N CBC W/AUTO [id number] 06:00:00 Test Item Value Reference Range Interpretation Comments WHITE BLOOD CELL (test code = 8.5 K/mm3 4.5-11.0 N WBC) RED BLOOD CELL (test code = 3.31 M/mm3 4.40-5.90 L RBC) HEMOGLOBIN (test code = HGB) 10.3 gm/dL 13.0-17.0 L HEMATOCRIT (test code = HCT) 30.7 % 36.0-48.0 L MEAN CELL VOLUME (test code = 92.7 UM3 80.0-94.0 N MCV) MEAN CELL HGB (test code = MCH) 31.1 UUG 25.5-32.5 N MEAN CELL HGB CONCETRATION 33.6 gm/dL 29.0-35.5 N (test code = MCHC) RED CELL DISTRIBUTION WIDTH 14.4 % 11.5-15.0 N (test code = RDW) RED CELL DISTRIBUTION WIDTH SD 48.4 fL 34.8-50.2 N (test code = RDW-SD) PLATELET COUNT (test code = 99 K/mm3 150-400 L PLT) MEAN PLATELET VOLUME (test code 10.6 fl 7.4-10.4 H = MPV) NEUTROPHIL % (test code = NT%) 70.8 % 49.0-76.0 N IMMATURE GRANULOCYTE % (test 2.4 % 0.0-0.4 H code = IG%) LYMPHOCYTE % (test code = LY%) 12.0 % 23.0-38.0 L MONOCYTE % (test code = MO%) 14.3 % 1.0-10.0 H EOSINOPHIL % (test code = EO%) 0.1 % 1.0-5.0 L BASOPHIL % (test code = BA%) 0.4 % 0.0-1.0 N NUCLEATED RBC % (test code = 0.2 % 0.0-0.1 H NRBC%) NEUTROPHIL # (test code = NT#) 6.0 K/mm3 2.4-6.3 N IMMATURE GRANULOCYTE # (test 0.20 x10 3/uL 0.00-0.07 H code = IG#) LYMPHOCYTE # (test code = LY#) 1.0 K/mm3 1.2-4.0 L MONOCYTE # (test code = MO#) 1.2 K/mm3 0.0-0.6 H EOSINOPHIL # (test code = EO#) 0.0 K/MM3 0.0-0.7 N BASOPHIL # (test code = BA#) 0.0 K/mm3 0.0-0.2 N NUCLEATED RBC # (test code = 0.02 X10 3uL 0.00-0.01 H NRBC#) RENAL FUNCTION [id number] 03:22:00 Test Item Value Reference Range Interpretation Comments SODIUM (test code = NA) 144 mmol/l 134.0-147.0 N POTASSIUM (test code = K) 3.1 mmol/L 3.6-5.2 L CHLORIDE (test code = CL) 112 mmol/l 98.0-107.0 H CARBON DIOXIDE (test code = CO2) 18.6 mmol/l 21.0-33.0 L ANION GAP (test code = GAP) 16.5 0-20 N GLUCOSE (test code = GLU) 176 mg/dl 70.0-110.0 H BLOOD UREA NITROGEN (test code = 16 mg/dl 7.0-18.0 N BUN) CREATININE (test code = CREAT) 1.41 mg/dL 0.60-1.30 H GFR NON BLACK (test code = 52 mL/min 70-80 L GFRNONBLACK) GFR BLACK (test code = GFRBLACK) 63 mL/min 85-97 L ALBUMIN (test code = ALB) 2.3 gm/dL 3.2-4.7 L CALCIUM (test code = CA) 8.6 mg/dl 8.0-10.5 N PHOSPHOROUS (test code = PHOS) 0.7 mg/dl 2.5-4.9 LL [id number] 03:22:00 Test Item Value Reference Range Interpretation Comments MAGNESIUM (test code = MAG) 2.2 mg/dl 1.8-2.4 N UA RFLX MICR CULT IF [id number] 23:09:00 Test Item Value Reference Range Interpretation Comments UA GLUCOSE DIPSTICK 1000 mg/dl mg/dl NORMAL A (test code = DGLUU) UA BILIRUBIN DIPSTICK NEGATIVE mg/dL NEGATIVE (test code = BILU) UA KETONE DIPSTICK 15 mg/dl mg/dl NEGATIVE A (test code = KETU) UA SPECIFIC GRAVITY 1.010 1.000-1.030 (test code = SGU) UA BLOOD DIPSTICK 150 Beck/micL NEGATIVE A (test code = BRIAN) Beck/micL UA PH DIPSTICK (test 5.0 5.0-9.0 code = KRIS) UA PROTEIN DIPSTICK 30 mg/dl NEGATIVE (test code = PROU) UA UROBILINIOGEN NORMAL mg/dl NORMAL DIPSTICK (test code = URO) UA NITRITE DIPSTICK NEGATIVE NEGATIVE (test code = COSMO) UA LEUKOCYTE ESTERASE NEGATIVE NEGATIVE DIPSTICK (test code = Martha/micL LEUU) UA WBC (test code = 0-3 WBC/HPF NONE WBCU) UA SQUAMOUS CELLS 0-2 #/hpf (test code = SQU) UA CULTURE NEEDED? NO, WBC<10 Culture Chk Criteria not (test code = UACULT) Criteria met, Ur ine Culture cancelled. Indication for culture: RiskForSepsis-no oth srcSpecimen Description: CATHETERCath Status: Under72 hoursUA RFLX MICR CULT IF [id number] 22:51:00 Test Item Value Reference Range Interpretation Comments UA GLUCOSE DIPSTICK (test 1000 mg/dl mg/dl NORMAL A code = DGLUU) UA BILIRUBIN DIPSTICK NEGATIVE mg/dL NEGATIVE (test code = BILU) UA KETONE DIPSTICK (test 15 mg/dl mg/dl NEGATIVE A code = KETU) UA SPECIFIC GRAVITY (test 1.010 1.000-1.030 code = SGU) UA BLOOD DIPSTICK (test 150 Beck/micL NEGATIVE A code = BRIAN) Beck/micL UA PH DIPSTICK (test code 5.0 5.0-9.0 = KRIS) UA PROTEIN DIPSTICK (test 30 mg/dl NEGATIVE code = PROU) UA UROBILINIOGEN DIPSTICK NORMAL mg/dl NORMAL (test code = URO) UA NITRITE DIPSTICK (test NEGATIVE NEGATIVE code = COSMO) UA LEUKOCYTE ESTERASE NEGATIVE Martha/micL NEGATIVE DIPSTICK (test code = LEUU) UA WBC (test code = WBCU) WBC/HPF NONE UA CULTURE NEEDED? (test Criteria Culture Chk code = UACULT) Indication for culture: RiskForSepsis-no oth srcSpecimen Description: CATHETERCath Status: Under72 hoursBASIC METABOLIC [id number] 20:55:00 Test Item Value Reference Range Interpretation Comments SODIUM (test code = 139 mmol/l 134.0-147.0 N PT's MALLY SSMA 4+ NA) LIPEMIC POTASSIUM (test code = 3.2 mmol/L 3.6-5.2 L K) CHLORIDE (test code = 107 mmol/l 98.0-107.0 N CL) CARBON DIOXIDE (test 19.6 mmol/l 21.0-33.0 L code = CO2) ANION GAP (test code = 15.6 0-20 N GAP) GLUCOSE (test code = 155 mg/dl 70.0-110.0 H GLU) BLOOD UREA NITROGEN 13 mg/dl 7.0-18.0 N (test code = BUN) CREATININE (test code 1.41 mg/dL 0.60-1.30 H = CREAT) GFR NON BLACK (test 52 mL/min 70-80 L code = GFRNONBLACK) GFR BLACK (test code = 63 mL/min 85-97 L GFRBLACK) CALCIUM (test code = 8.9 mg/dl 8.0-10.5 N CA) [id number] 20:55:00 Test Item Value Reference Range Interpretation Comments MAGNESIUM (test code = MAG) 1.6 mg/dl 1.8-2.4 L [id number] 19:52:00 Test Item Value Reference Range Interpretation Comments GLUBED (test code = GLUBED) 158 mg/dL 70-110 H [id number] 19:52:00 Test Item Value Reference Range Interpretation Comments GLUBED (test code = GLUBED) 149 mg/dL 70-110 H BASIC METABOLIC [id number] 15:30:00 Test Item Value Reference Range Interpretation Comments SODIUM (test code = 141 mmol/l 134.0-147.0 N PT'S MALLY SMA 4+ NA) LIPEMIC POTASSIUM (test code = 3.0 mmol/L 3.6-5.2 L K) CHLORIDE (test code = 107 mmol/l 98.0-107.0 N CL) CARBON DIOXIDE (test 19.9 mmol/l 21.0-33.0 L code = CO2) ANION GAP (test code = 17.1 0-20 N GAP) GLUCOSE (test code = 147 mg/dl 70.0-110.0 H GLU) BLOOD UREA NITROGEN 17 mg/dl 7.0-18.0 N (test code = BUN) CREATININE (test code 1.53 mg/dL 0.60-1.30 H = CREAT) GFR NON BLACK (test 47 mL/min 70-80 L code = GFRNONBLACK) GFR BLACK (test code = 57 mL/min 85-97 L GFRBLACK) CALCIUM (test code = 8.1 mg/dl 8.0-10.5 N CA) BASIC METABOLIC [id number] 15:29:00 Test Item Value Reference Range Interpretation Comments SODIUM (test code = NA) 141 mmol/l 134.0-147.0 N POTASSIUM (test code = K) 3.0 mmol/L 3.6-5.2 L CHLORIDE (test code = CL) 107 mmol/l 98.0-107.0 N CARBON DIOXIDE (test code = CO2) 19.9 mmol/l 21.0-33.0 L ANION GAP (test code = GAP) 17.1 0-20 N GLUCOSE (test code = GLU) 147 mg/dl 70.0-110.0 H BLOOD UREA NITROGEN (test code = 17 mg/dl 7.0-18.0 N BUN) CREATININE (test code = CREAT) 1.53 mg/dL 0.60-1.30 H GFR NON BLACK (test code = 47 mL/min 70-80 L GFRNONBLACK) GFR BLACK (test code = GFRBLACK) 57 mL/min 85-97 L CALCIUM (test code = CA) 8.1 mg/dl 8.0-10.5 N [id number] 14:06:00 Test Item Value Reference Range Interpretation Comments GLUBED (test code = GLUBED) 143 mg/dL 70-110 H [id number] 14:05:00 Test Item Value Reference Range Interpretation Comments GLUBED (test code = GLUBED) 182 mg/dL 70-110 H [id number] 14:02:00 Test Item Value Reference Range Interpretation Comments GLUBED (test code = GLUBED) 138 mg/dL 70-110 H LACTIC ACID [id number] 12:16:00 Test Item Value Reference Range Interpretation Comments LACTIC ACID REPEAT (test code = 2.1 mmol/L 0.4-2.0 H LACTR) NURSE DRAW, [facility] ER BED 1ARTERIAL BLOOD [id number] 12:08:00 Test Item Value Reference Range Interpretation Comments ARTERIAL BLOOD GAS PH 7.354 7.350-7.450 N (test code = PHA) ARTERIAL BLOOD GAS PCO2 30.4 mmHg 35.0-45.0 L (test code = PCO2A) ARTERIAL BLOOD GAS PO2 140.8 mmHg >80.0 (test code = PO2A) BICARBONATE TOTAL HCO3 16.6 MMOL/L 22.0-26.0 L (test code = HCO3) BASE EXCESS (test code = -7.8 MMOL/L -4.0-4.0 L MIGUEL ANGEL) ABG O2 SATURATION (test 99.2 % 92.0-99.0 H code = SATA) FIO2 (test code = FIO2A) 40.0 ABG VENT MODE (test code = SIMV MODEA) ABG VENT RESP RATE (test 10.0 /MIN code = RRA) ABG TIDAL VOLUME (test 540.0 mL code = TVA) ABG PEEP (test code = 3.0 cmH2O PEEPA) ABG PRESSURE SUPPORT (test 12 cmH2O code = PSABG) ABG SITE (test code = RR SITEA) ALLENS TEST (test code = Unable ALLENS) TOTAL HGB (test code = 12.5 g/dL 12.0-16.0 N THB) CARBOXYHEMOGLOBIN (test 0.2 % THgb 0.0-1.5 N code = HOHGBT) METHEMOGLOBIN (test code = 0.3 % 0.0-1.5 N N ORMAL METHGB) <2.0POTENTIALLY TOXIC >20.0 PaO2/[id number] 12:08:00 Test Item Value Reference Range Interpretation Comments PaO2/FiO2 (test code = DYL9BWV1) 352.00 mm/Hg ARTERIAL BLOOD [id number] 12:07:00 Test Item Value Reference Range Interpretation Comments ARTERIAL BLOOD GAS PH 7.354 7.350-7.450 N (test code = PHA) ARTERIAL BLOOD GAS PCO2 30.4 mmHg 35.0-45.0 L (test code = PCO2A) ARTERIAL BLOOD GAS PO2 140.8 mmHg >80.0 (test code = PO2A) BICARBONATE TOTAL HCO3 16.6 MMOL/L 22.0-26.0 L (test code = HCO3) BASE EXCESS (test code = -7.8 MMOL/L -4.0-4.0 L MIGUEL ANGEL) ABG O2 SATURATION (test 99.2 % 92.0-99.0 H code = SATA) FIO2 (test code = FIO2A) 40.0 ABG VENT MODE (test code = SIMV MODEA) ABG VENT RESP RATE (test 10.0 /MIN code = RRA) ABG TIDAL VOLUME (test 540.0 mL code = TVA) ABG PEEP (test code = 3.0 cmH2O PEEPA) ABG PRESSURE SUPPORT (test 12 cmH2O code = PSABG) ABG SITE (test code = RR SITEA) ALLENS TEST (test code = Unable ALLENS) TOTAL HGB (test code = 12.5 g/dL 12.0-16.0 N THB) CARBOXYHEMOGLOBIN (test 0.2 % THgb 0.0-1.5 N code = HOHGBT) METHEMOGLOBIN (test code = 0.3 % 0.0-1.5 N N ORMAL METHGB) <2.0POTENTIALLY TOXIC >20.0 PaO2/[id number] 12:07:00 Test Item Value Reference Range Interpretation Comments PaO2/FiO2 (test code = EPS3POS2) mm/Hg [id number] 11:12:00 Test Item Value Reference Range Interpretation Comments GLUBED (test code = GLUBED) 141 mg/dL 70-110 H BASIC METABOLIC [id number] 10:40:00 Test Item Value Reference Range Interpretation Comments SODIUM (test code = NA) 134 mmol/l 134.0-147.0 N POTASSIUM (test code = K) 4.0 mmol/L 3.6-5.2 N CHLORIDE (test code = CL) 102 mmol/l 98.0-107.0 N CARBON DIOXIDE (test code = CO2) 18.6 mmol/l 21.0-33.0 L ANION GAP (test code = GAP) 17.4 0-20 N GLUCOSE (test code = GLU) 182 mg/dl 70.0-110.0 H BLOOD UREA NITROGEN (test code = 17 mg/dl 7.0-18.0 N BUN) CREATININE (test code = CREAT) 1.57 mg/dL 0.60-1.30 H GFR NON BLACK (test code = 46 mL/min 70-80 L GFRNONBLACK) GFR BLACK (test code = GFRBLACK) 55 mL/min 85-97 L CALCIUM (test code = CA) 7.5 mg/dl 8.0-10.5 L [id number] 09:47:00 Test Item Value Reference Range Interpretation Comments GLUBED (test code = GLUBED) 162 mg/dL 70-110 H [id number] 09:34:00 Test Item Value Reference Range Interpretation Comments GLUBED (test code = GLUBED) 191 mg/dL 70-110 H [id number] 09:34:00 Test Item Value Reference Range Interpretation Comments GLUBED (test code = GLUBED) 204 mg/dL 70-110 H - CT ABD PELVIS W/O [id number] 08:32:00 [facility] ARLEN TOVARMONSTER KELLEY : 1945 Sex: M FAX: Jeffery Gann [phone] [place]: St: ADM Name: ALTHEA TOVAR [facility] : 1945 Age/S: 75/M [address] [facility] Unit: [id number] Loc: [place], [place]: [place] [address] Acct: [id number] Dis Date: Status: ADM IN PHONE #: [phone] Exam Date: 08/31/2020527 FAX #: [phone] Reason: pancreatitis EXAMS: CPT CODE: [id number] CT ABD PELVIS W/O CONT 73051 Dictation location: U19. CT ABDOMEN AND PELVIS WITHOUT IV CONTRAST HISTORY: pancreatitis COMPARISON: None. TECHNIQUE: Axial CT images of the abdomen and pelvis were obtained with coronaland/or sagittal reformatted views. Automated exposure control, iterative reconstruction technique, and/or adjustment of mA and/or kV according to patient's size was utilized for radiation dose reduction. IV CONTRAST: None. PO CONTRAST: None. Lack of IV contrast limits evaluation of the parenchyma and vasculature. FINDINGS: Milddependent atelectasis present bilaterally. 3 mm nodule noted towards the lingula. The heart size is normal. Coronary artery calcifications. The gallbladder is distended. Diffuse low attenuation seen throughout the liver suggestive is pneumatosis. The unenhanced spleen and adrenal glands are unremarkable. There are some mild inflammatory changes along the pancreas especially the tail. No discrete fluid collection. Dense exophytic lesion along the superior left kidney measuring 1.4 cm probably relates to a hemorrhagic or proteinaceous cyst. Additional probable cysts are noted in the left kidney, at least 3 measuring up to 2.2 cm. The larger one measuring 2.2 cm may also be mildly complex. There are at least 2 hypodensities in the right kidney measuring up to 1.5 cm suggestive of a cyst. No hydronephrosis or nephrolithiasis. Urinary bladder is decompressed by Hand catheter. The prostate is mildly enlarged. No free air or evidence of a bowel obstruction. Small amount of free fluid noted in the pelvis. Nasogastric tube noted within the stomach. The stomach is decompressed. No definite bowel wall thickening. Normal appendix. PAGE 1 Signed Report (CONTINUED) FAX: Jeffery Gann [phone] [place]: St: ADM -- Name: ALTHEA TOVAR JR [facility] : 1945 Age/S:75/M [address] [facility] Unit: [id number] Loc: [place], [place]: [place] [address] Acct: [id number] Dis Date: Status: ADM IN PHONE #: [phone] Exam Date: 08/31/2020527 FAX #: [phone] Reason: pancreatitis EXAMS: CPT CODE: [id number] CT ABD PELVIS W/O CONT 56212 <Continued> Atherosclerotic calcifications affect the aorta and its branches. Right common femoral venous catheter extending into the iliac vein. Air is noted within the common femoral vein likely related to the catheter. Small fat-containing umbilical hernia. No abdominal or pelvic adenopathy. Moderate to severe lumbar spondylosis. Severe degenerative changesaffect the right hip. IMPRESSION: Inflammatory changes along the pancreas consistent with acute pancreatitis. No fluid collection. Hepatic steatosis. Multiple bilateral renal cysts. Several on the left are likely complex. Recommend follow-up nonemergent renal ultrasound. at 0832 Reported and signed by: Bob Kohli M.D. CC: Enedina Cantrell MD Technologist: JABARI Charlesrd Dt/Tm: 08/31/2020 (0832) [email or web address] Orig Print D/T: S: 08/31/2020 (0135 PAGE 2 Signed Report- XR CHEST 1 [id number] 08:23:00 [facility] : 1945 Sex: M FAX: Michael Holm MD [phone] [place]: St: [facility] FAX: Jeffery Mcnally [phone] Name: GUYOHMONSTER KELLEY JR [facility] : 1945 Age/S: 75/M [address] Unit #: [id number] Loc: [place], [place]: [place] [address] Acct: [id number] Dis Date: Status: ADM IN PHONE #: [phone] Exam Date: 08/31/2020 0531 FAX #: [phone] R irvin: respiratory failure EXAMS: CPT CODE: [id number] XR CHEST 1 V 24975 Dictation location: U19. CHEST, FRONTAL VIEW HISTORY: respiratory failure FINDINGS: Since 08/30/20, endotracheal is in good position. Nasogastric tube is retracted with the proximal port in the distal esophagus and needs to be advanced an additional 9 cm. The lungs are clear. The heart size is normal. The bones are intact.Several wires overlie the chest. IMPRESSION: Interval retraction of the nasogastric tube now predominantly within the distal esophagus and needs to be advancedan additional 9 cm. at 0823 Reported and signed by: Bob Kohli M.D. CC: Michael Llamas MD; Enedina Cantrell MD Technologist: ESVIN PENA Trnscrd Date/Time/By: 08/31/2020 (0823) : By: [email or web address] PAGE 1 Signed Report FAX: Michael Holm MD [phone] [place]: St: [facility] FAX: Jeffery Gann [phone] Name: KOMALDELLAALTHEA KELLEY [facility] : 1945 Age/S: 75/M [address] Unit #: [id number] Loc: [place], [place]: [place] [address] Acct: [id number] Dis Date: Status: ADM IN PHONE #: [phone] Exam Date: 08/31/2020530 FAX #: [phone] Reason: respiratory failure EXAMS: CPT CODE: [id number] XR CHEST 1 V 71961 <Continued> Orig Print D/T: S: 08/31/2020 (0826) PAGE 2 Signed Report- CT C-SPINE W/O [id number] 08:18:00 [facility] 1945 Sex: M FAX: Michael Holm MD [phone] [place]: St: [facility] FAX: Jeffery Wolf [phone] Name: ALTHEA TOVAR [facility] : 1945 Age/S: 75/M [address] Unit: [id number] Loc: [place], [place]: [place] [address] Acct: [id number] Dis Date: Status: ADM IN PHONE #: [phone] Exam Date: 08/31/202028 FAX #: [phone] Re ason: AMS EXAMS: CPT CODE: [id number] CT C-SPINE W/O CONT 90919 Dictation location: U19. CT CERVICAL SPINE WITHOUT CONTRAST; SAGITTAL AND CORONAL REFORMATTED VIEWS. HISTORY: AMS COMPARISON :None. TECHNIQUE: Axial CT images of the cervical spine were obtained with coronal and sagittal reformatted views. Automated exposure control, iterative reconstruction technique, and/or adjustment of mA and/or kV according to patient's size was utilized for radiation dose reduction. IV CONTRAST: None. FINDINGS: The cervical alignment is mildly straightened with minimal grade 1 anterolisthesis of C4 on C5 and C5 on C6. Partially calcified pannus formation seen along the dens. No cervical spine fracture. Moderate degenerative changes are noted with disc space narrowing, endplate sclerosis, subchondral cyst formation and facet arthrosis and posterior disc and osteophyte complex. At C6-C7, posterior disc and osteophyte complex causes severe spinal canal stenosis and neuroforaminal narrowing. An endotracheal and nasogastric tubes are noted. Extensive atherosclerotic calcifications are seen along the carotid vessels bilaterally. IMPRESSION: No cervical spine fracture. Cervical spondylosis with severe spinal canal stenosis at C6-C7. at 0818 Reported and signed by: Bob Kohli M.D. PAGE 1 Signed Report (CONTINUED) FAX: Michael Holm MD [phone] [place]: St: [facility] FAX: Jeffery Gann [phone] Name: ALTHEA TOVAR JR [facility] : 1945 Age/S: 75/M [address] [facility] Unit: [id number] Loc: [place], [place] Phys: [place] [id number] Acct: [id number] DisDate: Status: ADM IN PHONE #: [phone] Exam Date: 08/31/2020527 FAX #: [phone] Reason: AMS EXAMS: CPT CODE: [id number] CT C-SPINE W/O CONT 25610 <Continued> CC: Michael Llamas MD; Enedina Cantrell MD Technologist: JABARI Cabrales Dt/Tm: 08/31/2020 (817) [email or web address] Orig Print D/T: S: 08/31/2020 (820 PAGE 2 Signed Report- CT HEAD/BRAIN W/O [id number] 08:16:00 [facility] 1945 Sex: M FAX: Michael Holm MD [phone] [place]: St: ADM FAX: Jeffery Wolf [phone] Name: ALTHEA TOVAR [facility] : 1945 Age/S: 75/M [address] [facility] Unit: [id number] Loc: [place], [place]: [place] [id number] Acct: [id number] Dis Date: Status: ADM IN PHONE #: [phone] Exam Date: 08/31/2020 05 FAX #: [phone] Re ason: AMS EXAMS: CPT CODE: [id number] CT HEAD/BRAIN W/O CONT 27540 Dictation location: U19. CT HEAD WITHOUT CONTRAST. HISTORY: AMS COMPARISON: No comparison is available. TECHNIQUE: Axial CT images of the headwere obtained with coronal and/or sagittal reformatted views. Automated exposure control, iterative reconstruction technique, and/or adjustment of mA and/or kV according to patient'ssize was utilized for radiation dose reduction. IV CONTRAST: None. FINDINGS: Mild amount of periventricular and deep white matter hypodensities are seen,these are most commonly associated with chronic, microvascular ischemic changes. Mild to moderate atrophy is noted. Atherosclerotic calcifications affect the carotid siphons. No other intracranial abnormalities such as hemorrhage, mass, mass effect, hydrocephalus, midline shift, extra-axial fluid collection or secondary signs of an acute infarct are noted. The calvarium and skull base are intact. Right mastoid effusion. Mild thickening of the ethmoid sinuses. IMPRESSION: No evidence of acute intracranial ab normality. Chronic microvascular ischemic changes and atrophy. at 0816 Reported and signed by: Bob Kohli M.D. PAGE 1 Signed Report (CONTINUED) FAX: Michael Holm MD [phone] [place]: St: [facility] FAX: Jeffery Gann [phone] Name: ALTHEA TOVAR [facility] : 1945 Age/S: 75/M [address] [facility] Unit: [id number] Loc: [place] [facility]: [place] [address] Acct: [id number] Dis Date: Status: ADM IN PHONE #: [phone] Exam Date: 08/31/2020527 FAX #: [phone] Reason: AMS EXAMS: CPT CODE: [id number] CT HEAD/BRAINW/O CONT 79227 <Continued> CC: Michael Llamas MD; Enedina Cantrell MD Technologist: JABARI Cabrales Dt/Tm: 08/31/2020 (0816) [email or web address] Orig Print D/T: S: 08/31 (0820 PAGE 2 Signed [id number] 06:20:00 Test Item Value Reference Range Interpretation Comments GLUBED (test code = GLUBED) 328 mg/dL 70-110 H COMPREHENSIVE METABOLIC [id number] 04:54:00 Test Item Value Reference Range Interpretation Comments SODIUM (test code = NA) 147 mmol/l 134.0-147.0 N POTASSIUM (test code = K) 2.4 mmol/L 3.6-5.2 L CHLORIDE (test code = CL) 109 mmol/l 98.0-107.0 H CARBON DIOXIDE (test code = CO2) 20.6 mmol/l 21.0-33.0 L ANION GAP (test code = GAP) 19.8 0-20 N GLUCOSE (test code = GLU) 226 mg/dl 70.0-110.0 H BLOOD UREA NITROGEN (test code = 20 mg/dl 7.0-18.0 H BUN) CREATININE (test code = CREAT) 1.78 mg/dL 0.60-1.30 H GFR NON BLACK (test code = 40 mL/min 70-80 L GFRNONBLACK) GFR BLACK (test code = GFRBLACK) 48 mL/min 85-97 L TOTAL PROTEIN (test code = PROT) 5.2 GM/DL 6.0-8.1 L ALBUMIN (test code = ALB) 2.5 gm/dL 3.2-4.7 L CALCIUM (test code = CA) 7.7 mg/dl 8.0-10.5 L BILIRUBIN TOTAL (test code = 0.6 mg/dl 0.0-1.0 N BILT) SGOT/AST (test code = AST) 20 Units/L 15-37 N SGPT/ALT (test code = ALT) 17 Units/L 12.0-78.0 N ALKALINE PHOSPHATASE TOTAL (test 60 Units/L 50.0-136.0 N code = ALKP) NURSE DRAW, COVID, ER BED [id number] 04:54:00 Test Item Value Reference Range Interpretation Comments LIPASE (test code = LIP) 4842 Units/L 65.0-230.0 H NURSE DRAW, COVLA, ER BED [id number] 04:49:00 Test Item Value Reference Range Interpretation Comments GLUBED (test code = GLUBED) 209 mg/dL 70-110 H [id number] 04:49:00 Test Item Value Reference Range Interpretation Comments GLUBED (test code = GLUBED) 198 mg/dL 70-110 H [id number] 04:49:00 Test Item Value Reference Range Interpretation Comments GLUBED (test code = GLUBED) 230 mg/dL 70-110 H [id number] 04:49:00 Test Item Value Reference Range Interpretation Comments GLUBED (test code = GLUBED) 204 mg/dL 70-110 H [id number] 04:49:00 Test Item Value Reference Range Interpretation Comments GLUBED (test code = GLUBED) 243 mg/dL 70-110 H [id number] 04:49:00 Test Item Value Reference Range Interpretation Comments GLUBED (test code = GLUBED) 255 mg/dL 70-110 H [id number] 04:49:00 Test Item Value Reference Range Interpretation Comments GLUBED (test code = GLUBED) 263 mg/dL 70-110 H COMPREHENSIVE METABOLIC [id number] 04:45:00 Test Item Value Reference Range Interpretation Comments SODIUM (test code = NA) 147 mmol/l 134.0-147.0 N POTASSIUM (test code = K) 2.4 mmol/L 3.6-5.2 L CHLORIDE (test code = CL) 109 mmol/l 98.0-107.0 H CARBON DIOXIDE (test code = CO2) 20.6 mmol/l 21.0-33.0 L ANION GAP (test code = GAP) 19.8 0-20 N GLUCOSE (test code = GLU) 226 mg/dl 70.0-110.0 H BLOOD UREA NITROGEN (test code = 20 mg/dl 7.0-18.0 H BUN) CREATININE (test code = CREAT) 1.78 mg/dL 0.60-1.30 H GFR NON BLACK (test code = 40 mL/min 70-80 L GFRNONBLACK) GFR BLACK (test code = GFRBLACK) 48 mL/min 85-97 L TOTAL PROTEIN (test code = PROT) 5.2 GM/DL 6.0-8.1 L ALBUMIN (test code = ALB) 2.5 gm/dL 3.2-4.7 L CALCIUM (test code = CA) 7.7 mg/dl 8.0-10.5 L BILIRUBIN TOTAL (test code = 0.6 mg/dl 0.0-1.0 N BILT) SGOT/AST (test code = AST) 20 Units/L 15-37 N SGPT/ALT (test code = ALT) 17 Units/L 12.0-78.0 N ALKALINE PHOSPHATASE TOTAL (test 60 Units/L 50.0-136.0 N code = ALKP) NURSE DRAW, [facility] BED [id number] 04:45:00 Test Item Value Reference Range Interpretation Comments LIPASE (test code = LIP) Units/L 65.0-230.0 NURSE DRAW, [facility] BED [id number] 04:41:00 Test Item Value Reference Range Interpretation Comments HGBA1C% (test code = HGBA1C%) 7.4 %A1C 4.8-6.0 H ESTIMATED AVERAGE GLUCOSE (test 166 MG/DL code = EAG) NURSE DRAW, [facility] BED 1CBC W/AUTO [id number] 04:29:00 Test Item Value Reference Range Interpretation Comments WHITE BLOOD CELL (test code = 6.4 K/mm3 4.5-11.0 N WBC) RED BLOOD CELL (test code = 3.87 M/mm3 4.40-5.90 L RBC) HEMOGLOBIN (test code = HGB) 12.0 gm/dL 13.0-17.0 L HEMATOCRIT (test code = HCT) 35.8 % 36.0-48.0 L MEAN CELL VOLUME (test code = 92.5 UM3 80.0-94.0 MCV) MEAN CELL HGB (test code = MCH) 31.0 UUG 25.5-32.5 N MEAN CELL HGB CONCETRATION 33.5 gm/dL 29.0-35.5 N (test code = MCHC) RED CELL DISTRIBUTION WIDTH 13.8 % 11.5-15.0 N (test code = RDW) RED CELL DISTRIBUTION WIDTH SD 46.3 fL 34.8-50.2 N (test code = RDW-SD) PLATELET COUNT (test code = 140 K/mm3 150-400 L PLT) MEAN PLATELET VOLUME (test code 9.9 fl 7.4-10.4 N = MPV) NEUTROPHIL % (test code = NT%) 70.3 % 49.0-76.0 N IMMATURE GRANULOCYTE % (test 0.5 % 0.0-0.4 H code = IG%) LYMPHOCYTE % (test code = LY%) 9.7 % 23.0-38.0 L MONOCYTE % (test code = MO%) 18.5 % 1.0-10.0 H EOSINOPHIL % (test code = EO%) 0.5 % 1.0-5.0 L BASOPHIL % (test code = BA%) 0.5 % 0.0-1.0 N NUCLEATED RBC % (test code = 0.3 % 0.0-0.1 H NRBC%) NEUTROPHIL # (test code = NT#) 4.5 K/mm3 2.4-6.3 N IMMATURE GRANULOCYTE # (test 0.03 x10 3/uL 0.00-0.07 N code = IG#) LYMPHOCYTE # (test code = LY#) 0.6 K/mm3 1.2-4.0 L MONOCYTE # (test code = MO#) 1.2 K/mm3 0.0-0.6 H EOSINOPHIL # (test code = EO#) 0.0 K/MM3 0.0-0.7 N BASOPHIL # (test code = BA#) 0.0 K/mm3 0.0-0.2 N NUCLEATED RBC # (test code = 0.02 X10 3uL 0.00-0.01 H NRBC#) NURSE DRAW, MARIEL [id number] 03:05:00 Test Item Value Reference Range Interpretation Comments MAGNESIUM (test code = MAG) 2.0 mg/dl 1.8-2.4 N BASIC METABOLIC [id number] 02:23:00 Test Item Value Reference Range Interpretation Comments SODIUM (test code = NA) 143 mmol/l 134.0-147.0 N POTASSIUM (test code = K) 3.2 mmol/L 3.6-5.2 L CHLORIDE (test code = CL) 105 mmol/l 98.0-107.0 N CARBON DIOXIDE (test code = CO2) 14.2 mmol/l 21.0-33.0 L ANION GAP (test code = GAP) 27.0 0-20 H GLUCOSE (test code = GLU) 218 mg/dl 70.0-110.0 H BLOOD UREA NITROGEN (test code = 22 mg/dl 7.0-18.0 H BUN) CREATININE (test code = CREAT) 1.91 mg/dL 0.60-1.30 H GFR NON BLACK (test code = 37 mL/min 70-80 L GFRNONBLACK) GFR BLACK (test code = GFRBLACK) 44 mL/min 85-97 L CALCIUM (test code = CA) 8.8 mg/dl 8.0-10.5 N NURSE DRAW, COVID ER BED 1LACTIC [id number] 23:51:00 Test Item Value Reference Range Interpretation Comments LACTIC ACID (test code = LACT) 2.5 MMOL/L 0.4-2.0 H BASIC METABOLIC [id number] 23:40:00 Test Item Value Reference Range Interpretation Comments SODIUM (test code = NA) 143 mmol/l 134.0-147.0 N POTASSIUM (test code = K) 3.3 mmol/L 3.6-5.2 L CHLORIDE (test code = CL) 104 mmol/l 98.0-107.0 N CARBON DIOXIDE (test code = CO2) 16.6 mmol/l 21.0-33.0 L ANION GAP (test code = GAP) 25.7 0-20 H GLUCOSE (test code = GLU) 243 mg/dl 70.0-110.0 H BLOOD UREA NITROGEN (test code = 23 mg/dl 7.0-18.0 H BUN) CREATININE (test code = CREAT) 2.04 mg/dL 0.60-1.30 H GFR NON BLACK (test code = 34 mL/min 70-80 L GFRNONBLACK) GFR BLACK (test code = GFRBLACK) 41 mL/min 85-97 L CALCIUM (test code = CA) 8.4 mg/dl 8.0-10.5 N ACETONE [id number] 22:36:00 Test Item Value Reference Range Interpretation Comments ACETONE BLOOD (test code = ACETB) MODERATE NEGATIVE [id number] 21:54:00 Test Item Value Reference Range Interpretation Comments GLUBED (test code = GLUBED) 411 mg/dL 70-110 H LACTIC [id number] 21:06:00 Test Item Value Reference Range Interpretation Comments LACTIC ACID (test code = LACT) 1.8 MMOL/L 0.4-2.0 N Coronavirus 2019 nCoV [id number] 21:01:00 Test Item Value Reference Range Interpretation Comments Coronavirus 2019 Negative NEGATIVE Negative re sults should be nCoV Bedside (test treated a s presumptive and code = ifinconsistent with [id number]) clinical signs and symptoms, or ne cessaryfor patient managem ent, should be tested with an alternativemole cular assay. Negative result s do not preclude MWBR-OzA-1ulfxz tion and should not be u sed as the sole basis forp atient management deci sions. Negative result s should beconsidered in the context of a patient's recent exposures,histo ry, presence of clinical sig ns and symptoms consis tentwith COVID-19. RENAL FUNCTION [id number] 20:59:00 Test Item Value Reference Range Interpretation Comments SODIUM (test code = NA) 137 mmol/l 134.0-147.0 N POTASSIUM (test code = K) 3.8 mmol/L 3.6-5.2 N CHLORIDE (test code = CL) 100 mmol/l 98.0-107.0 N CARBON DIOXIDE (test code = CO2) 13.8 mmol/l 21.0-33.0 L ANION GAP (test code = GAP) 27.0 0-20 H GLUCOSE (test code = GLU) 327 mg/dl 70.0-110.0 H BLOOD UREA NITROGEN (test code = 22 mg/dl 7.0-18.0 H BUN) CREATININE (test code = CREAT) 2.26 mg/dL 0.60-1.30 H GFR NON BLACK (test code = 30 mL/min 70-80 L GFRNONBLACK) GFR BLACK (test code = GFRBLACK) 36 mL/min 85-97 L ALBUMIN (test code = ALB) 3.5 gm/dl 3.2-4.7 N CALCIUM (test code = CA) 9.0 mg/dl 8.0-10.5 N PHOSPHOROUS (test code = PHOS) 3.6 mg/dl 2.5-4.9 N Specimen comments: Every 6 hours until anion gap less than or equal toComments toPhlebotomist: 12 mEq/L, then every [id number] 20:59:00 Test Item Value Reference Range Interpretation Comments MAGNESIUM (test code = MAG) 2.2 mg/dl 1.8-2.4 N Specimen comments: Every 6 hours until anion gap less than or equal toComments toPhlebotomist: 12 mEq/L, then every morningARTERIAL BLOOD GAS 2020-08-30 20:47:00 Test Item Value Reference Range Interpretation Comments ARTERIAL BLOOD GAS PH 6.970 7.350-7.450 LL Result s called (test code = PHA) to and nenita d back by Rashard 20:47 - 08/30/2020; by [facility] ARTERIAL BLOOD GAS PCO2 46.7 mmHg 35.0-45.0 H (test code = PCO2A) ARTERIAL BLOOD GAS PO2 210.6 mmHg >80.0 (test code = PO2A) BICARBONATE TOTAL HCO3 10.5 MMOL/L 22.0-26.0 L (test code = HCO3) BASE EXCESS (test code = -21.1 MMOL/L -4.0-4.0 L MIGUEL ANGEL) ABG O2 SATURATION (test 99.7 % 92.0-99.0 H code = SATA) FIO2 (test code = FIO2A) 60.0 ABG VENT MODE (test code Assist Control = MODEA) ABG VENT RESP RATE (test 14.0 /MIN code = RRA) ABG TIDAL VOLUME (test 540.0 mL code = TVA) ABG PEEP (test code = 3.0 cmH2O PEEPA) ABG SITE (test code = RB SITEA) ALLENS TEST (test code = Unable ALLENS) TOTAL HGB (test code = 14.4 g/dL 12.0-16.0 N THB) CARBOXYHEMOGLOBIN (test 0.8 % THgb 0.0-1.5 N code = HOHGBT) METHEMOGLOBIN (test code 0.5 % 0.0-1.5 N NOR MAL = METHGB) <2.0POTENTIALLY TOXIC >20.0 PaO2/[id number] 20:47:00 Test Item Value Reference Range Interpretation Comments PaO2/FiO2 (test code = [id number]) mm/Hg ARTERIAL BLOOD [id number] 20:47:00 Test Item Value Reference Range Interpretation Comments ARTERIAL BLOOD GAS PH 6.970 7.350-7.450 LL Result s called (test code = PHA) to and nenita d back by [facility] :47 - 08/30/2020; by [facility] ARTERIAL BLOOD GAS PCO2 46.7 mmHg 35.0-45.0 H (test code = PCO2A) ARTERIAL BLOOD GAS PO2 210.6 mmHg >80.0 (test code = PO2A) BICARBONATE TOTAL HCO3 10.5 MMOL/L 22.0-26.0 L (test code = HCO3) BASE EXCESS (test code = -21.1 MMOL/L -4.0-4.0 L MIGUEL ANGEL) ABG O2 SATURATION (test 99.7 % 92.0-99.0 H code = SATA) FIO2 (test code = FIO2A) 60.0 ABG VENT MODE (test code Assist Control = MODEA) ABG VENT RESP RATE (test 14.0 /MIN code = RRA) ABG TIDAL VOLUME (test 540.0 mL code = TVA) ABG PEEP (test code = 3.0 cmH2O PEEPA) ABG SITE (test code = RB SITEA) ALLENS TEST (test code = Unable ALLENS) TOTAL HGB (test code = 14.4 g/dL 12.0-16.0 N THB) CARBOXYHEMOGLOBIN (test 0.8 % THgb 0.0-1.5 N code = HOHGBT) METHEMOGLOBIN (test code 0.5 % 0.0-1.5 N NOR MAL = METHGB) <2.0POTENTIALLY TOXIC >20.0 PaO2/[id number] 20:47:00 Test Item Value Reference Range Interpretation Comments PaO2/FiO2 (test code = [id number]) 351.00 mm/Hg CBC W/AUTO [id number] 20:44:00 Test Item Value Reference Range Interpretation Comments WHITE BLOOD CELL (test code = 9.8 K/mm3 4.5-11.0 N WBC) RED BLOOD CELL (test code = 4.43 M/mm3 4.40-5.90 N RBC) HEMOGLOBIN (test code = HGB) 13.7 gm/dL 13.0-17.0 N HEMATOCRIT (test code = HCT) 43.5 % 36.0-48.0 N MEAN CELL VOLUME (test code = 98.2 UM3 80.0-94.0 H MCV) MEAN CELL HGB (test code = MCH) 30.9 UUG 25.5-32.5 N MEAN CELL HGB CONCETRATION 31.5 gm/dL 29.0-35.5 N (test code = MCHC) RED CELL DISTRIBUTION WIDTH 13.8 % 11.5-15.0 N (test code = RDW) RED CELL DISTRIBUTION WIDTH SD 49.8 fL 34.8-50.2 N (test code = RDW-SD) PLATELET COUNT (test code = 211 K/mm3 150-400 N PLT) MEAN PLATELET VOLUME (test code 10.4 fl 7.4-10.4 N = MPV) NEUTROPHIL % (test code = NT%) 71.6 % 49.0-76.0 N IMMATURE GRANULOCYTE % (test 0.6 % 0.0-0.4 H code = IG%) LYMPHOCYTE % (test code = LY%) 15.0 % 23.0-38.0 L MONOCYTE % (test code = MO%) 12.5 % 1.0-10.0 H EOSINOPHIL % (test code = EO%) 0.0 % 1.0-5.0 L BASOPHIL % (test code = BA%) 0.3 % 0.0-1.0 N NUCLEATED RBC % (test code = 0.5 % 0.0-0.1 H NRBC%) NEUTROPHIL # (test code = NT#) 7.0 K/mm3 2.4-6.3 H IMMATURE GRANULOCYTE # (test 0.06 x10 3/uL 0.00-0.07 N code = IG#) LYMPHOCYTE # (test code = LY#) 1.5 K/mm3 1.2-4.0 N MONOCYTE # (test code = MO#) 1.2 K/mm3 0.0-0.6 H EOSINOPHIL # (test code = EO#) 0.0 K/MM3 0.0-0.7 N BASOPHIL # (test code = BA#) 0.0 K/mm3 0.0-0.2 N NUCLEATED RBC # (test code = 0.05 X10 3uL 0.00-0.01 H NRBC#) - XR CHEST 1 [id number] 20:36:00 [facility]ANCHOHORTENCIAALTHEA : 1945 Sex: M FAX: Flavio Franklin MD [phone] [place]: St: REG Name: ALTHEA TOVAR [facility] : 1945 Age/S: 75/M [address] [facility] Unit #: [id number] Loc: [place], [place] Phys: [place] [id number] Acct: [id number] Dis Date: Status: REG ER PHONE #: [phone] Exam Date: 08/30/20202032 FAX #: [phone] Reason: intubated EXAMS: CPT CODE: [id number] XR CHEST 1 V 67464 EXAM: CHEST ONE VIEW INDICATION: intubated LOCATION: B2 COMPARISON: None available TECHNIQUE: AP view of the chest FINDINGS: Tip of the endotracheal tube is 4.3 cm above the bela. Tip of the enteric tube overlies the stomach. The heart size is normal. There are mild parenchymal opacities in left lung base. No pneumothorax or pleural effusion is identified. The osseous structures are normal. IMPRESSION: Mild parenchymal opacities in the left lung base which may represent a mild acute infectious process. at 2035 Reported and signed by: Gina Vallejo M.D. CC: Flavio Franklin MD Technologist: AMBIKA MEEKS Trnscrd Date/Time/By: 08/30/2020 (2035) : By: [email or web address] PAGE 1 Signed Report FAX: Flavio Franklin MD [phone] [place]: St: REG Name: ALTHEA TOVAR [facility] : 1945 Age/S: 75/M [address] [facility] Unit #: [id number] Loc: [place], [place]: [place] [address] Acct: [id number] Dis Date: Status: REG ER PHONE #: [phone] Exam Date: 08/30/20202032 FAX #: [phone] R irvin: intubated EXAMS: CPT CODE: [id number] XR CHEST 1 V 10849 <Continued> Orig Print D/T: S: 08/30/2020 (2039) PAGE 2 Signed ReportCT, JEANINE PALAFOX W/ CHARLEE.EXT.[id number] 16:25[facility]00[facility] 1945 Sex: MAddendum BeginsREPORT STATUS:A Addendum: I agree with the previou sly described non vascular findings. Generalized fatty infiltration of the liver is apparent. There are numerous small bilateral renal cysts evident. The wall of the urinary bladder is diffusely thickened. The urinary bladder is not distended. Chronic degenerative changes are present in the lower lumbar spine. Chronic degenerative arthritis of the right hip. Signed: Kenny Arvizu MDReport Verified Date/Time: 08/12/2020 16:25:56 Reading Location: [facility] Radiology Reading RoomAddendum EndsFINAL REPORT CTA AAA with bilateral external runoff - 08/10/2020 8:39 AM. Comparison: None available History: 75 years old Male with acute limb ischemia and suspected severe peripheral vascular disease. Evaluated for further treatment options. Indication: Clinically suspected peripheral vascular disease. This study is performed in an attempt to avoid an invasive procedure. Technique: Multi- detector CT technology was employed ([place] CT 660 scanner). Spiral acquisition before and during intravenous contrast administration. Images were obtained before and during the dynamic passage of intravenous contrast material. Multi- planar 3-D volume-rendering reconstruction was performed using an independent workstation interactively by the interpreting physician as well as the 3-D specialist foroptimal visualization of the abdominal aorta, pelvic arteries as well as its branches, along with bilateral lower extremity vasculature. Please refer to the contrast sheet scanned in the EPIC system for the amount and route of contrast given. This exam was performed according to our departmental dose-o ptimization programme, which includes automated exposure control, adjustment of the mA and/or kV according to patient size and/or use of iterative reconstruction technique. Dose modulation, iterative reconstruction, and/or weight based adjustment of the mA/kV was utilized to reduce the radiation dose t o as low as reasonably achievable. RESULT: Potential study limitations: None. LIMITED CHEST:The visualized chest wall is unremarkable. The visualized lungs reveal no acute abnormalities. VASCULAR WITH ADVANCED 3-D OFFLINE POST- PROCESSING:The abdominal aorta: Normal in course and caliber with mild to moderate calcification predominantly involving the infrarenal segment of the abdominal aorta The celiac artery, SMA, and AVANI are patent. The bilateral single renal arteries are patent. There is no acute aortic pathology, such as dissection, intramural hematoma, or contained rupture. Representativedimensions of the abdominal aorta are as follows: *2.1 cm at the supra-mesenteric segment*2.0 cm atthe mesenteric segment*1.9 cm at the renal segment*1.4 [...] bifurcation leading to at least moderate luminal s tenosis with a minimal luminal diameter measuring 2.8 x 3.3 mm. The left common iliac artery has mild to moderate calcification with a minimal luminal diameter measuring 6.1 x 7.6 mm. The left externaliliac artery is patent with mild to moderate calcific atherosclerotic changes. The distal segment ofthe left common femoral artery has severe protruding calcification just before its bifurcation leading to moderate to severe luminal stenosis with minimal luminal diameter measuring 2.1 x 3.5 mm. The Inflow vessels:The left superficial femoral appears to be patent with near circumferential calcification throughout the course, and of the luminal diameter is limited by the blooming artifact from the radha cification. However, there is at least mild to [...] similar protruding calcification at its distal segment w ith again a moderate luminal stenosis noted. The [...] as a normal caliber posterior plantar branches. ABDOMEN- PELVIS:In the abdomen, the liver and spleen appears unremarkable. No abnormal enhancing structure is identified. The gallbladder and pancreas appears grossly normal. The adrenal glands are not enlarged. The kidneys are normal in size and shape. No hydronephrosis or perirenal fluid collection is identified. There are simple appearing renalcysts at the upper pole of the left and lower pole of the right kidneys, respectively with the largest measuring 1.6 cm. Bowel is not well assessed by CT angiography as enteric contrast is not given. No obvious bowel dilation is seen. There is no significant retroperitoneal adenopathy. No free fluidor free air is identified. The visualized pelvic [...] segment before the bifurcation leading to at leastmoderate luminal stenosis with a minimal luminal diameter measuring 2.8 x 3.3 mm. 2. The distal segment of the left common femoral artery has severe protruding calcification just before its bifurcationleading to moderate to severe luminal stenosis with minimal luminal diameter measuring 2.1 x 3.5 mm.3. Mid right SFA has severe protruding calcification with at least moderate to severe luminal stenosis with another similar protruding calcification at its distal segment with again a moderate luminal stenosis noted. 4. The right popliteal artery is severely calcified with moderate to severe luminal stenosis at its mid segment. An addendum will be dictated regarding the non-vascular findings by the [place] Radiologists. Signed: Orion Buck Yasir Verified Date/Time: 08/10/2020 14:41:04 Re ading Location: [place] [address] CT Reading Room [id number] 12:09:00 Test Item Value Reference Range Interpretation Comments POC-CREATININE 0.8 mg/dL 0.6-1.3 : TESTED AT [facility] (BEAKER) (test [address] code = 1859) [place], [address]: Warehouse Material Handler/Techni sandip ID = [id number] for Aretha Diallo POC-EGFR (BEAKER) 94 mL/min/1.73M2 (test code = 1860) PLATELET AGGREGATION: FUNCTION [id number] 14:06:00 Test Item Value Reference Range Interpretation Comments [id number] Daily Pina MD (BEAKER) (test code = (electronic signature) 4863) PLATELET COUNT AGG 222 K/CU MM 150-450 [...] may be falsely low with platelet counts<75,000/cu mm.Warehouse Material Handler ID- [id number]-GLUCOSE [id number] 08:14:00 Test Item Value Reference Range Interpretation Comments POC-GLUCOSE METER 148 mg/dL 70-110 H : [facility] (test code = [address] [place], 1538) [address]: Warehouse Material Handler/Techni sandip ID = [id number] for CHAVO MAHMOOD [id number] 06:48:00 Test Item Value Reference Range Interpretation Comments PHOSPHORUS (BEAKER) (test code = 2.5 mg/dL 2.3-4.7 604) Warehouse Material Handler ID - WALDO [id number] 06:48:00 Test Item Value Reference Range Interpretation Comments MAGNESIUM (BEAKER) (test code = 2.4 mg/dL 1.6-2.6 627) Warehouse Material Handler ID - WALDO LBASIC METABOLIC [id number] 06:48:00 Test Item Value Reference Range Interpretation [...] S NOT APPLICABLE FOR DIALYSIS PATIEN TS. Warehouse Material Handler ID - WALDO LCBC W/PLT COUNT & AUTO [id number] 06:11:00 Test Item Value Reference Range Interpretation [...] PERCENT (BEAKER) (test code = 2801) POCT-GLUCOSE [id number] 21:40:00 Test Item Value Reference Range Interpretation Comments POC-GLUCOSE METER 168 mg/dL 70-110 H : TESTED A T [facility] 67[address] (BEAKER) (test code = [facility], 153) [address]: Warehouse Material Handler/Techni sandip ID = [id number] for MARCE MIRANDA POCT-GLUCOSE [id number] 17:04:00 Test Item Value Reference Range Interpretation Comments POC-GLUCOSE METER 159 mg/dL 70-110 H : Notified RN/MD: ([facility] (test code = TESTED AT [facility] 6720 1538) [place] [facility], [address]: Warehouse Material Handler/Techni sandip ID = [id number] for ROMINA RODRIGUEZ POCT-GLUCOSE [id number] 11:29:00 Test Item Value Reference Range Interpretation Comments POC-GLUCOSE METER 151 mg/dL 70-110 H : Notified RN/MD: (JUSTINE) (test code = TESTED AT [place] [address] 1538) [facility], [address]: Warehouse Material Handler/Techni sandip ID = [id number] for ROMINA RODRIGUEZ POCT-GLUCOSE [id number] 10:17:00 Test Item Value Reference Range Interpretation Comments POC-GLUCOSE METER 167 mg/dL 70-110 H : Notified RN/MD: (JUSTINE) (test code = TESTED AT [place] [address] 1538) [facility], [address]: Warehouse Material Handler/Techni sandip ID = [id number] for ROMINA RODRIGUEZ [id number] 08:36:00 Test Item Value Reference Range Interpretation Comments PHOSPHORUS (BEAKER) (test code = 2.4 mg/dL 2.3-4.7 604) Warehouse Material Handler ID Jose DELGADO [id number] 08:36:00 Test Item Value Reference Range Interpretation Comments MAGNESIUM (BEAKER) (test code = 2.3 mg/dL 1.6-2.6 627) Warehouse Material Handler ID Jose DELGADO FBASIC METABOLIC [id number] 08:36:00 Test Item Value Reference Range Interpretation [...] S NOT APPLICABLE FOR DIALYSIS PATIEN TS. Warehouse Material Handler ID - SANDY FPOCT-GLUCOSE [id number] 08:10:00 Test Item Value Reference Range Interpretation Comments POC-GLUCOSE METER 166 mg/dL 70-110 H : TESTED A T [facility] 6720 (BEAKER) (test code = [facility], 1538) [id number]: Warehouse Material Handler/Techni sandip ID = [id number] for ROMINA RODRIGUEZ HEMOGLOBIN [id number] 08:09:00 Test Item Value Reference Range Interpretation Comments HEMOGLOBIN A1C (BEAKER) (test code = 8.8 % 4.3-6.1 H 368) POCT-GLUCOSE [id number] 07:42:00 Test Item Value Reference Range Interpretation Comments POC-GLUCOSE METER 181 mg/dL 70-110 H : TESTED A T [facility] 6720 (BEAKER) (test code = [facility], 1538) 79812: Warehouse Material Handler/Techni sandip ID = [id number] for ROMINA RODRIGUEZ RAD, CHEST, 1 VIEW, NON [id number] 07:27:00Reason for exam:->s/p PCI, impella removalShould this be performed at the bedside?->YesFINAL REPORT CLINICAL HISTORY: s/p PCI, impella removal TECHNIQUE: 1 view ofthe chest. COMPARISON: 12/16/2019 IMPRESSION: There are no focal infiltrates or effusions. The cardiomediastinal silhouette is magnified by technique. The osseous structures appear intact. There is mild elevation of the right hemidiaphragm. Signed: Matt Nur MDReport Verified Date/Time: 02/23/2020 07:27:25 Reading Location: [facility] Radiology Reading Room POCT-GLUCOSE [id number] 06:27:00 Test Item Value Reference Range Interpretation Comments POC-GLUCOSE METER 150 mg/dL 70-110 H : TESTED A T [facility] 6720 (BEAKER) (test code = [facility], 1538) 68133: Warehouse Material Handler/Techni sandip ID = [id number] for SYLVIA ELLIS POCT-GLUCOSE [id number] 05:06:00 Test Item Value Reference Range Interpretation Comments POC-GLUCOSE METER 136 mg/dL 70-110 H : TESTED A T [facility] 6720 (BEAKER) (test code = BRENDA Dykes [facility], 1538) 26225: Warehouse Material Handler/Techni sandip ID = [id number] for SYLVIA ELLIS LACTIC ACID, [id number] 04:40:00 Test Item Value Reference Range Interpretation Comments LACTATE BLOOD ARTERIAL (2) 1.2 mmol/L 0.5-2.2 (BEAKER) (test code = 2874) Warehouse Material Handler ID - ARLENE GORE, [id number] 04:27:00 Test Item Value Reference Range Interpretation Comments KETONES, BLOOD (BEAKER) (test code 0.8 mmol/L <0.4 H = 1103) POCT-GLUCOSE [id number] 04:19:00 Test Item Value Reference Range Interpretation Comments POC-GLUCOSE METER 170 mg/dL 70-110 H : TESTED A T [facility] 6720 (BEAKER) (test code = [facility], 1538) 93282: Warehouse Material Handler/Techni sandip ID = [id number] for SYLVIA ELLIS LACTATE DEHYDROGENASE (LDH)2020-02-23 04:06:00 Test Item Value Reference Range Interpretation Comments LACTATE DEHYDROGENASE (BEAKER) (test 245 U/L 125-220 H code = 635) Warehouse Material Handler ID - JIMENEZ [id number] 03:59:00 Test Item Value Reference Range Interpretation Comments MAGNESIUM (BEAKER) (test code = 2.3 mg/dL 1.6-2.6 627) Warehouse Material Handler ID - ARLENE WBASIC METABOLIC [id number] 03:59:00 Test Item Value Reference Range Interpretation [...] S NOT APPLICABLE FOR DIALYSIS PATIEN TS. Warehouse Material Handler ID - ARLENE WLACTATE DEHYDROGENASE (LDH)2020-02-23 03:59:00 Test Item Value Reference Range Interpretation Comments LACTATE DEHYDROGENASE (BEAKER) (test 201 U/L 125-220 code = 635) Warehouse Material Handler ID - ARLENE WBLOOD GAS, [id number] 03:46:00 Test Item Value Reference Range Interpretation [...] (test code = 1819) 21.0 % CBC (HEMOGRAM ONLY)2020-02-23 03:38:00 Test Item Value Reference [...] 0-0 (BEAKER) (test code = 413) POCT-GLUCOSE [id number] 03:30:00 Test Item Value Reference Range Interpretation Comments POC-GLUCOSE METER 174 mg/dL 70-110 H : TESTED A T [facility] 6720 (BEAKER) (test code = [facility], 1538) 16829: Warehouse Material Handler/Techni sandip ID = [id number] for LISBETH ELLISEN POCT-GLUCOSE [id number] 02:16:00 Test Item Value Reference Range Interpretation Comments POC-GLUCOSE METER 153 mg/dL 70-110 H : TESTED A T [facility] 6720 (BEAKER) (test code = [facility], 1538) 03004: Warehouse Material Handler/Techni sandip ID = [id number] for LISBETH ELLISEN POCT-GLUCOSE [id number] 01:23:00 Test Item Value Reference Range Interpretation Comments POC-GLUCOSE METER 145 mg/dL 70-110 H : TESTED A T [facility] 6720 (BEAKER) (test code = [facility], 1538) 73960: Warehouse Material Handler/Techni sandip ID = [id number] for BENNETT-JERMAIN R, SYLVIA [id number] 00:59:00 Test Item Value Reference Range Interpretation Comments PHOSPHORUS (BEAKER) (test code = 2.3 mg/dL 2.3-4.7 604) Warehouse Material Handler ID - [id number] 00:59:00 Test Item Value Reference Range Interpretation Comments MAGNESIUM (BEAKER) (test code = 2.5 mg/dL 1.6-2.6 627) Warehouse Material Handler ID - DBBASIC METABOLIC [id number] 00:59:00 Test Item Value Reference Range Interpretation [...] S NOT APPLICABLE FOR DIALYSIS PATIEN TS. Warehouse Material Handler ID - DBLACTIC ACID, [id number] 00:55:00 Test Item Value Reference Range Interpretation Comments LACTATE BLOOD VENOUS (2) (BEAKER) 1.65 mmol/L 0.50-2.20 (test code = 2872) Warehouse Material Handler ID - DBPOCT-GLUCOSE [id number] 00:23:00 Test Item Value Reference Range Interpretation Comments POC-GLUCOSE METER 154 mg/dL 70-110 H : [facility] (test code = [facility] [place], 1538) 00517: Warehouse Material Handler/Techni sandip ID = [id number] for SYLVIA ELLIS BASIC METABOLIC [id number] 21:52:00 Test Item Value Reference Range Interpretation [...] S NOT APPLICABLE FOR DIALYSIS PATIEN TS. Warehouse Material Handler ID - DBLACTIC ACID, [id number] 21:49:00 Test Item Value Reference Range Interpretation Comments LACTATE BLOOD ARTERIAL (2) 2.9 mmol/L 0.5-2.2 H (BEAKER) (test code = 2874) Warehouse Material Handler ID - DBKETONE, [id number] 21:41:00 Test Item Value Reference Range Interpretation Comments KETONES, BLOOD (BEAKER) (test code 1.6 mmol/L <0.4 H = 1103) BLOOD GAS, [id number] 21:33:00 Test Item Value Reference Range Interpretation [...] (test code = 1819) 36.0 % POCT-GLUCOSE [id number] 21:11:00 Test Item Value Reference Range Interpretation Comments POC-GLUCOSE METER 232 mg/dL 70-110 H : TESTED A T [facility] 6720 (BEAKER) (test code = [facility], 1538) 23290: Warehouse Material Handler/Techni sandip ID = [id number] for [place] POCT-GLUCOSE [id number] 19:19:00 Test Item Value Reference Range Interpretation Comments POC-GLUCOSE METER 276 mg/dL 70-110 H : TESTED A T [facility] 6720 (BEAKER) (test code = [facility], 1538) 72250: Warehouse Material Handler/Techni sandip ID = [id number] for [place] CREATINE KINASE (CK)2020-02-22 19:03:00 Test Item Value Reference Range Interpretation Comments CREATINE KINASE TOTAL (BEAKER) (test 152 U/L 29-200 code = 380) Warehouse Material Handler ID - DBPOCT-GLUCOSE [id number] 18:43:00 Test Item Value Reference Range Interpretation Comments POC-GLUCOSE METER 311 mg/dL 70-110 H : TESTED A T [facility] 6720 (BEAKER) (test code = [facility], 1538) 29284: Warehouse Material Handler/Techni sandip ID = [id number] for FLAQUITA WALL LACTIC ACID, [id number] 18:30:00 Test Item Value Reference Range Interpretation Comments LACTATE BLOOD ARTERIAL (2) 4.7 mmol/L 0.5-2.2 HH (BEAKER) (test code = 2874) Warehouse Material Handler ID - [id number] 18:28:00 Test Item Value Reference Range Interpretation Comments PHOSPHORUS (BEAKER) (test code = 4.4 mg/dL 2.3-4.7 604) Warehouse Material Handler ID - [id number] 18:28:00 Test Item Value Reference Range Interpretation Comments MAGNESIUM (BEAKER) (test code = 1.9 mg/dL 1.6-2.6 627) Warehouse Material Handler ID - DBBASIC METABOLIC [id number] 18:28:00 Test Item Value Reference Range Interpretation [...] S NOT APPLICABLE FOR DIALYSIS PATIEN TS. Warehouse Material Handler ID - DBGLUCOSE-STAT [id number] 18:07:00 Test Item Value Reference Range Interpretation Comments GLUCOSE RANDOM (BEAKER) (test code 292 mg/dL 70-110 H = 652) BASIC METABOLIC [id number] 15:15:00 Test Item Value Reference Range Interpretation [...] S NOT APPLICABLE FOR DIALYSIS PATIEN TS. Warehouse Material Handler ID - DBPROTHROMBIN [id number] 15:12:00 Test Item Value Reference Range Interpretation [...] for patients wiht mechanical heart valves.LACTIC ACID, [id number] 15:12:00 Test Item Value Reference Range Interpretation Comments LACTATE BLOOD 3.6 mmol/L 0.5-2.2 H Specimen sligh tly ARTERIAL (2) (BEAKER) hemoly zed (test code = 2874) Warehouse Material Handler ID - [id number] 15:12:00 Test Item Value Reference Range Interpretation Comments PARTIAL THROMBOPLASTIN TIME 30.1 seconds 22.5-36.0 (BEAKER) (test code = 760) CBC W/PLT COUNT & AUTO [id number] 15:09:00 Test Item Value Reference Range Interpretation [...] 0-1 PERCENT (BEAKER) (test code = 2801) PLATELET [id number] 15:01:00 Test Item Value Reference Range Interpretation Comments PLATELET COUNT (BEAKER) (test 154 K/CU MM 150-450 code = 756) [id number] 13:51:00 Test Item Value Reference Range Interpretation Comments ACTIVATED CLOTTING TIME 125 sec : 74 -137 seconds, (BEAKER) (test code = Baseli ne: TESTED AT 441) [facility] 6720 [facility], 770 30: Warehouse Material Handler/Techni sandip ID = [id number] for CA STRO, SILVERIO GLUCOSE-STAT [id number] 13:24:00 Test Item Value Reference Range Interpretation Comments GLUCOSE RANDOM (BEAKER) (test code 185 mg/dL 70-110 H = 652) HGB/HCT (H&H) - STAT [id number] 13:24:00 Test Item Value Reference Range Interpretation Comments HEMOGLOBIN (BEAKER) (test code = 10.6 g/dL 13.0-16.8 L 410) HEMATOCRIT (BEAKER) (test code = 31.0 % 40.0-50.0 L 411) SODIUM NA-STAT [id number] 13:23:00 Test Item Value Reference Range Interpretation Comments SODIUM (BEAKER) (test code = 381) 136 meq/L 136-145 POTASSIUM-STAT [id number] 13:23:00 Test Item Value Reference Range Interpretation Comments POTASSIUM (BEAKER) (test code = 3.8 meq/L 3.6-5.5 379) BLOOD GAS, [id number] 13:23:00 Test Item Value Reference Range Interpretation [...] (BEAKER) (test code = 1819) 50.0 % [id number] 12:04:00 Test Item Value Reference Range Interpretation Comments ACTIVATED CLOTTING TIME 296 sec : 74 -137 seconds, (BEAKER) (test code = Baseli ne: TESTED AT 441) [address], [facility] 30: Warehouse Material Handler/Techni sandip ID = [id number] for ZURI YAP, CHAGO [id number] 11:48:00 Test Item Value Reference Range Interpretation Comments ACTIVATED CLOTTING TIME 257 sec : 74 -137 seconds, (BEAKER) (test code = Baseli ne: TESTED AT 441) [facility] [address] [place] [address], 770 30: Warehouse Material Handler/Techni sandip ID = [id number] for [place] LLIAMS, CHAGO [id number] 11:21:00 Test Item Value Reference Range Interpretation Comments ACTIVATED CLOTTING TIME 307 sec : 74 -137 seconds, (BEAKER) (test code = Baseli ne: TESTED AT 441) [address], [facility] 30: Warehouse Material Handler/Techni sandip ID = [id number] for RE DIC, BETY [id number] 10:34:00 Test Item Value Reference Range Interpretation Comments ACTIVATED CLOTTING TIME 296 sec : 74 -137 seconds, (BEAKER) (test code = Baseli ne: TESTED AT 441) [address], [facility] 30: Warehouse Material Handler/Techni sandip ID = [id number] for RE DIC, BETY [id number] 09:58:00 Test Item Value Reference Range Interpretation Comments ACTIVATED CLOTTING TIME 290 sec : 74 -137 seconds, (BEAKER) (test code = Baseli ne: TESTED AT 441) [address], [facility] 30: Warehouse Material Handler/Techni sandip ID = [id number] for RE DIC, BETY [id number] 09:36:00 Test Item Value Reference Range Interpretation Comments ACTIVATED CLOTTING TIME 257 sec : 74 -137 seconds, (BEAKER) (test code = Baseli ne: TESTED AT 441) [place] [address] 30: Warehouse Material Handler/Techni sandip ID = [id number] for RE DIC, BETY SARS-COV2/RT-PCR ([facility])2020-02-21 19:54:00 Test Item Value Reference Range Interpretation Comments SARS-COV2/RT-PCR (test Not Detected Not Detected, Negative code = 0384617) SARS-COV-2 PERFORMING LAB [facility] (test code = 6605078) Negative results do not preclude SARS-CoV-2 infection [...] of the Act.Fact Sheet for Healthcare Pro viders:https://www.[employer]/Documents/Xpert%20Xpress%20SARS%20CoV-2/Fact%20Sh eets/302-3802%49AKCG-JRR-5%20HEALTHCARE%20PROVIDERS%20FACT%20SHEET.pdfFact Sheet for Healthcare Patients:https://www.[employer]/Documents/Xpert%20Xpress%20SARS%20CoV-2/Fact%20Sheets/302-3801%20SARS-COV -2%20PATIENT%20FACT%20SHEET.pdfPerforming Laboratory:[facility] [place], [place] [id number] 19:07:00 Test Item Value Reference Range Interpretation Comments MAGNESIUM (BEAKER) (test code = 2.4 mg/dL 1.6-2.6 627) Warehouse Material Handler ID - DBBASIC METABOLIC [id number] 19:07:00 Test Item Value Reference Range Interpretation [...] S NOT APPLICABLE FOR DIALYSIS PATIEN TS. Warehouse Material Handler ID - DBCBC W/PLT COUNT & AUTO [id number] 18:56:00 Test Item Value Reference Range Interpretation [...] 0-1 PERCENT (BEAKER) (test code = 2801) [id number] 18:54:00 Test Item Value Reference Range Interpretation Comments PROTIME (BEGEOVANNI) (test code = 14.3 seconds 11.9-14.2 H [...] INR is2.5-3.5 for patients wiht mechanical heart valves.POCT-GLUCOSE [id number] 08:09:00 Test Item Value Reference Range Interpretation Comments POC-GLUCOSE METER 221 mg/dL 70-110 H : Notified RN/MD: TESTED (JUSTINE) (test code AT [facility] 67[address] = 1538) [facility], 770 30: Warehouse Material Handler/Techni sandip ID = [id number] for CECILE DANIEL TROPONIN [id number] 04:32:00 Test Item Value Reference Range Interpretation Comments TROPONIN I (JUSTINE) (test code = 0.34 ng/mL 0.00-0.03 HH [...] failure, acidosis, acute neurological disease, and persistent tachyarrhythmia.Warehouse Material Handler ID - WALDO LBASIC METABOLIC [id number] 04:16:00 Test Item Value Reference Range Interpretation [...] S NOT APPLICABLE FOR DIALYSIS PATIEN TS. Warehouse Material Handler ID - PIAYA LCBC (HEMOGRAM ONLY)2019-12-17 04:01:00 [...] RED BLOOD CELLS 0 /100 WBC 0-0 (SensibleSelfAKER) (test code = 413) TROPONIN [id number] 22:30:00 Test Item Value Reference Range Interpretation [...] failure, acidosis, acute neurological disease, and persistent tachyarrhythmia.Warehouse Material Handler ID - BSPOCT-GLUCOSE METER 2019-12-16 21:26:00 Test Item Value Reference Range Interpretation Comments POC-GLUCOSE METER 345 mg/dL 70-110 H : TESTED A T [facility] 6720 ([employer]) (test code = BRENDA Dykes [facility], 1538) 21884: Warehouse Material Handler/Techni sandip ID = [id number] for [place] TROPONIN [id number] 16:44:00 Test Item Value Reference Range Interpretation Comments TROPONIN I (SensibleSelfAKER) (test code = 0.48 ng/mL 0.00-0.03 397) [...] failure, acidosis, acute neurological disease, and persistent tachyarrhythmia.Warehouse Material Handler ID - BSPLATELET AGGREGATION: FUNCTION [id number] 16:28:00 Test Item Value Reference Range Interpretation Comments [id number] Daily Pina, ([employer]) (test code = (electronic 8200) signature) PLATELET COUNT AGG 198 K/CU MM 150-450 (SensibleSelfAKER) (test code = 2656) PLATELET RICH 285 k/cu mm 200-300 PLASMA(SensibleSelfAKER) (test code = 2134) PLATELET FUNCTION SCREEN Decreased aggregation INTERPRETATION (JUSTINE) with ADP which (test code = 4655) indicates platelet dysfunction that may be due to medication effect, uremia, or other platelet function disorders. Clinical correlation is required. Platelet Function Screen results may be falsely low with platelet counts<75,000/cu mm.Warehouse Material Handler ID- [id number] 16:22:00 Test Item Value Reference Range Interpretation Comments PARTIAL THROMBOPLASTIN TIME 36.5 seconds 22.5-36.0 H (GREYSONAKER) (test code = 760) 6 hours after starting heparin infusion and as indicated per sliding scalePOCT- GLUCOSE [id number] 12:29:00 Test Item Value Reference Range Interpretation Comments POC-GLUCOSE METER 278 mg/dL 70-110 H : TESTED A T [facility] 6720 (JUSTINE) (test code = BETZAIDADAYTON Dykes [facility], 1538) [address]: Warehouse Material Handler/Techni sandip ID = [id number] for CIARAN MENENDEZ TROPONIN [id number] 11:03:00 Test Item Value Reference Range Interpretation Comments TROPONIN I (JUSTINE) (test code = 0.39 ng/mL 0.00-0.03 [facility]) Troponin I (TnI) levels must be interpreted [...] failure, acidosis, acute neurological disease, and persistent tachyarrhythmia.Warehouse Material Handler ID - NEELAM [id number] 10:50:00 Test Item Value Reference Range Interpretation Comments PARTIAL THROMBOPLASTIN TIME 29.5 seconds 22.5-36.0 (GREYSONAKER) (test code = 760) Prior to initiating heparinRAD, CHEST, 1 VIEW, NON [id number] 10:00:00Reason for exam:->Short of breathShould this be performed at the bedside?->Yes FINAL REPORT INDICATION: Short of breath COMPARISON: December 15, 2019 TECHNIQUE:Single frontal view of the chest. FINDINGS: Lungs and pleura: Mild interstitial edema. Trace right effusion. Heart and mediastinum: Normal heart size. Unremarkable mediastinal contours.Osseous structures: No acute abnormality.Other: None. . Signed: Myrna Lange MDRepmax Verified Date/Time: 12/16/2019 10:00:26 Reading Location: [facility] Radiology Reading Room HEMOGLOBIN [id number] 09:56:00 Test Item Value Reference Range Interpretation Comments HEMOGLOBIN A1C (BEAKER) (test code = 9.5 % 4.3-6.1 H 368) POCT-GLUCOSE [id number] 08:11:00 Test Item Value Reference Range Interpretation Comments POC-GLUCOSE METER 140 mg/dL 70-110 H : TESTED A T [facility] 6720 (BEAKER) (test code = [facility], 1538) [address]: Warehouse Material Handler/Techni sandip ID = [id number] for MICHELLE NAGEL CIARAN LIPID [id number] 05:11:00 Test Item Value Reference Range Interpretation [...] Borderline 130-159 High 160-189 Very High >=190 Warehouse Material Handler ID - JIMENEZ MBASIC METABOLIC [id number] 05:11:00 Test Item Value Reference Range Interpretation [...] S NOT APPLICABLE FOR DIALYSIS PATIEN TS. Warehouse Material Handler ID - JIMENEZ MPOCT-GLUCOSE [id number] 21:46:00 Test Item Value Reference Range Interpretation Comments POC-GLUCOSE METER 177 mg/dL 70-110 H : TESTED Rodney T [facility] 6720 (BEAKER) (test code = [facility], 1538) [address]: Warehouse Material Handler/Techni sandip ID = [id number] for [place] Ambrosio COMPREHENSIVE METABOLIC [id number] 18:50:00 Test Item Value Reference Range Interpretation [...] S NOT APPLICABLE FOR DIALYSIS PATIEN TS. Warehouse Material Handler ID - BSPROTHROMBIN [id number] 18:42:00 Test Item Value Reference Range Interpretation [...] INR is2.5-3.5 for patients wiht mechanical heart valves.[id number] 18:42:00 Test Item Value Reference Range Interpretation Comments PARTIAL THROMBOPLASTIN TIME 29.8 seconds 22.5-36.0 (BEAKER) (test code = 760) RAD, CHEST, 1 VIEW, NON [id number] 18:34:00Reason for exam:->s/p NSTEMI, pre-op CXRShould this be performed at the bedside?->YesFINAL REPORT Chest, portable AP view History: Status post NSTEMI, preoperative chest x-ray Comparison: No comparisons available for review IMPRESSION: The heart is within normal limits of size. Bibasilar atelectasis. There is mild interstitial edema. Small bilateral pleural effusions are suspected. No focal consolidation or pneumothorax. Signed: Nate Walsh Verified Date/Time: 12/15/2019 18:34:02 Reading Location: [address] Radiology Reading Room POCT-GLUCOSE [id number] 16:09:00 Test Item Value Reference Range Interpretation Comments POC-GLUCOSE METER 185 mg/dL 70-110 H : TESTED A T [facility] 6720 ([facility]) (test code = BRENDA MUNIZ, 1538) [address]: Warehouse Material Handler/Techni sandip ID = [id number] for GREG SUNG
[2021-11-06 10:15] LABS: ALT/SGPT 32 U/L (12-78); AST/SGOT 21 U/L (15-37); Albumin 4.1 g/dL (3.4-5.0); Alkaline Phosphatase 101 U/L (45-117); Amylase 497 U/L (25-115); BUN Blood Urea Nitrogen 29 mg/dL (7-18); Bilirubin Direct 0.2 mg/dL (0-0.2); Bilirubin Total 0.7 mg/dL (0.2-1.0); CKMB Creatine Kinase MB 3.4 ng/mL (1.0-3.6); Creatine Phosphokinase 44 U/L (39-308); Glucose Level 416 mg/dL (74-106); Lipase 10394 U/L (73-393); Sodium Level 126 mmol/L (136-145)
[2021-11-06 10:16] LABS: Bicarbonate < 8 mmol/L (21-32)
[2021-11-06 10:18] LABS: Potassium 5.7 mmol/L (3.5-5.1)
--- NOTE | 2021-11-06 10:25 | RAD REPORT ---
EXAM DESCRIPTION: CT - Head Brain Wo Cont - 11/06/2021 10:12 am CLINICAL HISTORY: Dizziness;Mental status change COMPARISON: Head Brain Wo Cont dated 08/30/2020 TECHNIQUE: All CT scans are performed using dose optimization technique as appropriate and may inclu de automated exposure control or mA/KV adjustment according to patient size. FINDINGS: No intracranial hemorrhage, hydrocephalus or extra-axial fluid collection.Chronic small ve ssel ischemic changes. Cerebral atrophy. The paranasal sinuses and mastoids are clear. The calvarium is intact. IMPRESSION: No acute intracranial abnormality.
--- NOTE | 2021-11-06 10:29 | RAD REPORT ---
EXAM DESCRIPTION: CTChest Abd Pelvis Wo Con - 11/06/2021 10:12 am CLINICAL HISTORY: Dyspnea;Abdominal distention COMPARISON: Chest Abd Pelvis Wo Con dated 08/30/2020; Chest For Pe Angio dated 12/11/2019; Head Brain Wo Cont dated 11/06/2021; Stone Protocol dated 05/20/2020 TECHNIQUE: CT of the chest, abdomen, and pelvis was performed. All CT scans are performed using dose optimization technique as appropriate and may include automated exposure control or mA/KV adjustment according to patient size. FINDINGS: Thorax: Chest Wall: No abnormal mass Lungs: No acute abnormality. Motion limits evaluation for small nodules. Pleura: No effusions or pneumothorax. Dolores/Mediastinum: No lymphadenopathy. Small hiatal hernia. Aorta/Pulmonary Arteries: Unremarkable Heart: Normal size. Multi-vessel coronary artery disease with or without stents. Abdomen/Pelvis: Liver: Hepatic steatosis. Biliary: No biliary ductal dilatation. Stomach: No significant focal abnormality. Duodenum: No significant focal abnormality. Pancreas: No significant abnormality. Spleen: No significant abnormality. Adrenal: No suspicious lesions. Kidney/ureter: No hydronephrosis. No renal calculi. Too small to characterize and/or benign appearing renal lesions are noted. The lesions are grossly similar to prior. Retroperitoneum: No retroperitoneal adenopathy. Vascular: No aneurysm. Bowel: Moderate stool in the colon.. Normal appendix. Peritoneum: No ascites or free air. Bladder: Hand catheter within the bladder. The bladder remains distended. Reproductive: No adnexal masses. Bones: No acute fracture. Right hip arthroplasty. Grade 2 anterolisthesis of L5 on S1. Multilevel deg enerative changes are present in the spine. Other: n/a IMPRESSION: No acute findings within the chest, abdomen, or pelvis. Unchanged incidental findings as noted above.
[2021-11-06 10:36] LABS: Urine Blood Trace-intact (Negative); Urine Glucose 3+ (Negative); Urine Protein 2+ (Negative); Urine Specific Gravity 1.025 (1.005-1.030); Urine pH 5.5 (5.0-7.0)
[2021-11-06] MEDS ORDERED: FAMOTIDINE 20 MG/2 ML VIAL IV ONE (10:39)
--- NOTE | 2021-11-06 10:46 | EDPHYS ---
Physician Documentation [facility] Name: Dontrell Cartwright Jr Age: 76 yrs Sex: Male : 1945 Arrival Date: 11/06/2021 Time: 09:35 Bed 3 Private MD: ED Physician Lauri Abel HPI: 11/06 10:00 This 76 yrs old Male presents to ER via EMS with complaints of Altered Mental elizabeth Status. 10:00 The patient presents with confusion, decreased mental status. Onset: The elizabeth symptoms/episode began/occurred 1 day(s) ago. Possible causes: CVA or TIA, seizure, sepsis. Associated signs and symptoms: Pertinent positives: confusion, nausea. Current symptoms: In the emergency department the patient's symptoms are unchanged from the initial presentation, despite home interventions, despite EMS interventions. Patient's baseline: Neuro: alert and fully oriented. The patient has experienced similar episodes in the past, several times. Historical: - Allergies: 10:09 No Known Allergies; iw 09:55 No Known Allergies; bp - Home Meds: 09:55 Vitamin D Oral 2000 mg daily [Active]; aspirin 81 mg Oral chew 1 tab once daily bp [Active]; ranolazine 500 mg oral Tb12 1 tab daily [Active]; metoprolol succinate 100 mg oral CSpX 1 cap twice a day [Active]; Eliquis 5 mg oral tab 1 tab 2 times per day [Active]; rosuvastatin 10 mg Oral tab 1 tab once daily [Active]; spironolactone 25 mg oral tab 1 tab once daily [Active]; bumetanide 0.5 mg oral tab 1 tab once daily [Active]; tamsulosin 0.4 mg Oral cp24 1 cap once daily [Active]; nitroglycerin 0.4 mg SL subl 1 tab every 5 minutes for Angina [Active]; Lantus 100 unit/mL Sub-Q soln 100 unit daily [Active]; Victoza 3-Abundio 0.6 mg/0.1 mL (18 mg/3 mL) subcutaneous pnij 1.8 mL once daily [Active]; metformin 500 mg oral Tb24 1 tab once daily [Active]; lansoprazole 30 mg Oral cpDR 1 cap nightly [Active]; Jardiance 25 mg Oral tab 1 tab once daily [Active]; Orencia (with maltose) 250 mg intravenous solr every 4 wks [Active]; methocarbamol 750 mg Oral tab 1 tab every 4 hours [Active]; - PMHx: 09:55 Angina; Atrial Fib; Diabetes - IDDM; GERD; Hypertension; Rheumatoid Arthritis; bp - Immunization history:: Adult Immunizations unknown. - Social history:: Smoking status: unknown. - Family history:: not pertinent. ROS: 10:02 Eyes: Negative for injury, pain, redness, and discharge, Back: Negative for injury and elizabeth pain. 10:02 Constitutional: Positive for fatigue, malaise, poor PO intake. 10:02 Eyes: Positive for sunken appearance. 10:02 Cardiovascular: Positive for palpitations. 10:02 Respiratory: Positive for cough, shortness of breath, at rest. 10:02 Abdomen/GI: Positive for nausea, vomiting. 10:02 Neuro: Positive for altered mental status, weakness. Exam: 10:02 Head/Face: Normocephalic, atraumatic. Neck: Trachea midline, no thyromegaly or masses elizabeth palpated, and no cervical lymphadenopathy. Supple, full range of motion without nuchal rigidity, or vertebral point tenderness. No Meningismus. Male : Normal genitalia with no discharge or lesions. 10:02 Cardiovascular: Rate: tachycardic, Rhythm: regular, Pulses: Pulses are 3+ in bilateral radial, brachial, femoral, popliteal, posterior tibial and and dorsalis pedis arteries.. Heart sounds: normal, normal S1and S2, Edema: is not appreciated, JVD: is not appreciated. 10:02 ECG was reviewed by the Attending Physician. Vital Signs: 09:36 BP 126 / 59; Pulse 118; Resp 26; Pulse Ox 96% on 15% Non-rebreather mask; Weight 72.57 bp kg; 09:42 BP 72 / 53; Pulse 117; Resp 26 S; Pulse Ox 98% on Non-rebreather mask; iw 09:59 BP 91 / 53; Pulse 108; Resp 26 S; Pulse Ox 98% on Non-rebreather mask; iw 10:26 BP 119 / 78; Pulse 109; Resp 23; Temp 93.5; Pulse Ox 100% ; bp 10:41 BP 84 / 58; Pulse 110; Resp 22; Temp 92.8; Pulse Ox 100% ; bp 11:00 BP 100 / 58; Pulse 17; Resp 23; Temp 92; Pulse Ox 100% on R/A; bp 12:00 BP 88 / 63; Pulse 110; Resp 23; Temp 93.4; Pulse Ox 99% ; bp 13:00 BP 107 / 58; Pulse 110; Resp 23; Temp 95.4; Pulse Ox 99% ; bp 14:00 BP 113 / 69; Pulse 117; Resp 25; Temp 97.6; Pulse Ox 99% ; bp 15:00 BP 93 / 52; Pulse 123; Resp 19; Temp 98.6; Pulse Ox 98% ; bp MDM: 09:36 Patient medically screened. elizabeth 10:06 Differential diagnosis: Anemia CHF exacerbation, Myocardial Infarction pneumonia, elizabeth pulmonary edema, reactive airway disease, Sepsis Unstable Angina. Antibiotic administration: Rocephin and Zithromax given. Differential Diagnosis: CVA, electrolyte abnormality, alcohol intoxication, intracranial bleed, pneumonia, seizure, sepsis, TIA, volume depletion. The patient's Wells Deep Vein Thrombosis Score was calculated as follows: Heart Rate >100 BPM (1.5 Pts) Total Score: 0-2 Pts- Low Risk. The patient's pulmonary embolism risk score was calculated as follows: the patients heart rate is greater than 100 beats per minute (1.5 Pts) Total Score: 0-2 points. This patient was found to be at low risk for a pulmonary embolism by using the Well's assessment criteria. Immunization status: Pneumococcal vaccine: Influenza vaccine: Data reviewed: vital signs, nurses notes, lab test result(s), EKG, radiologic studies, CT scan, plain films. Data interpreted: court recording monitor: rate is 108 beats/min, rhythm is regular, Pulse oximetry: on room air is 98 %. Test interpretation: by ED physician or midlevel provider: ECG, plain radiologic studies. Counseling: I had a detailed discussion with the patient and/or guardian regarding: the historical points, exam findings, and any diagnostic results supporting the discharge/admit diagnosis, lab results, radiology results, the need for further work-up and treatment in the hospital. 11/06 09:36 Order name: Amylase, Serum bp 11/06 09:36 Order name: Basic Metabolic Panel bp 11/06 09:36 Order name: Blood Culture Adult (2) bp 11/06 09:36 Order name: CBC with Diff bp 11/06 09:36 Order name: CPK; Complete Time: 10:42 11/06 09:36 Order name: Ckmb; Complete Time: 10:42 11/06 09:36 Order name: LFT's; Complete Time: 10:42 11/06 09:36 Order name: Lactate; Complete Time: 10:42 11/06 09:36 Order name: Lipase; Complete Time: 10:42 11/06 09:36 Order name: Procalcitonin; Complete Time: 10:42 11/06 09:36 Order name: Protime (+inr); Complete Time: 10:42 11/06 09:36 Order name: Ptt, Activated; Complete Time: 10:42 11/06 09:36 Order name: Troponin HS; Complete Time: 10:42 11/06 09:36 Order name: Urine Microscopic Only; Complete Time: 11:15 11/06 09:36 Order name: ABG 11/06 09:37 Order name: Amylase; Complete Time: 10:42 [facility] 11/06 09:37 Order name: Basic Metabolic Panel; Complete Time: 10:42 [facility] 11/06 09:37 Order name: Blood Culture [facility] [place] 11/06 09:42 Order name: glucometer results - FOR PT WITH NO ID; Complete Time: 10:42 em1 11/06 09:46 Order name: Magnesium [facility] 11/06 09:46 Order name: NT PRO-BNP [facility] 11/06 09:46 Order name: ABG; Complete Time: 10:42 [facility] 11/06 09:50 Order name: COVID-19/FLU A+B (Document "Date of Onset" if Symptomatic); Complete Time: [facility] 11:15 11/06 10:36 Order name: Urine Dipstick-Ancillary; Complete Time: 10:42 [facility] 11/06 11:21 Order name: Glucose, Ancillary Testing [facility] [place] 11/06 12:21 Order name: Glucose, Ancillary Testing [facility] [place] 11/06 13:07 Order name: Lactate Sepsis 2 HR Follow-up [facility] [place] 11/06 13:13 Order name: Glucose, Ancillary Testing [facility] [place] 11/06 14:14 Order name: Glucose, Ancillary Testing [facility] [place] 11/06 15:10 Order name: Glucose, Ancillary Testing [facility] [place] 11/06 09:36 Order name: Chest Single View XRAY 11/06 09:36 Order name: Accucheck; Complete Time: 09:54 bp 11/06 09:36 Order name: Cardiac monitoring; Complete Time: 09:54 bp 11/06 09:36 Order name: EKG - Nurse/Tech; Complete Time: 09:43 bp 11/06 09:36 Order name: IV Saline Lock - Large Bore; Complete Time: 09:54 bp 11/06 09:36 Order name: Labs collected and sent; Complete Time: 09:54 bp 11/06 09:36 Order name: O2 Per Protocol; Complete Time: 09:54 bp 11/06 09:36 Order name: O2 Sat Monitoring; Complete Time: 09:54 bp 11/06 09:36 Order name: Urine Dipstick-Ancillary (obtain specimen); Complete Time: 10:40 bp 11/06 09:46 Order name: EKG; Complete Time: 09:46 elizabeth 11/06 09:46 Order name: IV Saline Lock; Complete Time: 09:53 elizabeth 11/06 09:46 Order name: Central Line Kit; Complete Time: 10:25 elizabeth 11/06 09:50 Order name: CT Head Brain wo Cont; Complete Time: 11:15 elizabeth 11/06 09:50 Order name: CT Chest Abdomen Pelvis W/O Contrast; Complete Time: 11:15 elizabeth 11/06 09:52 Order name: Hand; Complete Time: 10:25 elizabeth 11/06 10:42 Order name: Misc. Order: beir hugger; Complete Time: 10:45 elizabeth EC:02 Rate is 119 beats/min. Rhythm is regular. QRS [place] Line is Normal. CA interval is normal. [facility] QRS interval is normal. QT interval is normal. No Q waves. T waves are Normal. No ST changes noted. Clinical impression: NSR w/ Non-specific ST/T Changes, Sinus tachycardia, and No evidence of ischemia. Interpreted by me. Reviewed by me. Administered Medications: 09:50 Drug: NS 0.9% (30 ml/kg) 30 ml/kg Route: IV; Rate: bolus; Site: right forearm; iw 15:08 Follow up: IV Status: Completed infusion; IV Intake: 2000ml bp 09:53 Drug: Rocephin (cefTRIAXone) 1 grams Route: IV; Rate: bolus; Site: right antecubital; bp 11:40 Follow up: IV Status: Completed infusion; IV Intake: 50ml bp 10:15 Drug: Pepcid (famotidine) 20 mg Route: IVP; Site: left forearm; bp 11:40 Follow up: Response: No adverse reaction bp 10:50 Drug: Solu-CORTEF (hyrdoCORTISONE) 100 mg Route: IVP; Site: left forearm; bp 11:40 Follow up: Response: No adverse reaction bp 11:00 Drug: Insulin Drip - (Insulin Regular Human 100 units, NS 0.9% 100 ml) {Co-Signature: jd3 (López Catalan RN).} Route: IV; Rate: 5 units/hr; Site: right femoral; 15:08 Follow up: IV Status: Infusion continued upon admission bp Disposition Summary: 11/06/21 10:45 Hospitalization Ordered Hospitalization Status: Inpatient Admission elizabeth Provider: Michael Ryan cha Location: Intensive Care Unit elizabeth Condition: Guarded elizabeth Problem: an acute exacerbation elizabeth Symptoms: have improved elizabeth Bed/Room Type: Standard [facility] Room Assignment: 2-(11/06/21 14:24) dw Diagnosis - Type 1 diabetes mellitus with ketoacidosis without coma elizabeth - Altered mental status, unspecified elizabeth - Hypotension, unspecified elizabeth - Hypovolemia - hypothermia elizabeth - Severe sepsis with septic shock elizabeth - Hyperkalemia elizabeth - Elevated white blood cell count elizabeth - Acute kidney failure, unspecified elizabeth Forms: - Medication Reconciliation Form elizabeth - SBAR form elizabeth Signatures: Dispatcher [employer] Candida Kinsey RN RN dw Anderson, Corey, MD MD cha Williams, Irene, RN RN iw Peltier, Brian, RN RN bp Jonathon Davies RN jd3 Corrections: (The following items were deleted from the chart) 14:24 10:45 elizabeth dw
--- NOTE | 2021-11-06 10:46 | ER ---
Nurse's Notes [facility] Name: Dontrell Cartwright Jr Age: 76 yrs Sex: Male : 1945 Arrival Date: 11/06/2021 Time: 09:35 Bed 3 Private MD: Diagnosis: Type 1 diabetes mellitus with ketoacidosis without coma;Altered mental status, unspecified;Hypotension, unspecified;Hypovolemia-hypothermia;Severe sepsis with septic shock;Hyperkalemia;Elevated white blood cell count;Acute kidney failure, unspecified Presentation: 11/06 09:36 Chief complaint: EMS states: PROGRESSIVE SOB AND WEAKNESS SINCE THIS MORNING. bp Coronavirus screen: shortness of breath, Client presents with at least one sign or symptom that may indicate coronavirus-19. Standard/surgical mask placed on the client. Provider contacted for isolation considerations. Ebola Screen: No symptoms or risks identified at this time. Initial Sepsis Screen: Does the patient meet any 2 criteria? RR > 20 per min. Altered Mental Status. HR > 90 bpm. Yes Does the patient have a suspected source of infection? No. Patient's initial sepsis screen is negative. Risk Assessment: Do you want to hurt yourself or someone else? Patient reports no desire to harm self or others. Onset of symptoms was November 06, 2021. Care prior to arrival: Glucose check: 500. 09:36 Method Of Arrival: EMS: [facility] bp 09:36 Acuity: NEREIDA 2 bp Triage Assessment: 09:45 General: Appears distressed, uncomfortable, Behavior is listless. Pain: Unable to use bp pain scale. Does not appear to understand pain scale. EENT: No deficits noted. Neuro: Level of Consciousness is obtunded, Oriented to none. Cardiovascular: No deficits noted. Respiratory: Airway is patent Respiratory effort is labored, shallow, Respiratory pattern is hyperventilation. GI: No signs and/or symptoms were reported involving the gastrointestinal system. : No signs and/or symptoms were reported regarding the genitourinary system. Derm: No deficits noted. Musculoskeletal: No deficits noted. Historical: - Allergies: 10:09 No Known Allergies; iw 09:55 No Known Allergies; bp - Home Meds: 09:55 Vitamin D Oral 2000 mg daily [Active]; aspirin 81 mg Oral chew 1 tab once daily bp [Active]; ranolazine 500 mg oral Tb12 1 tab daily [Active]; metoprolol succinate 100 mg oral CSpX 1 cap twice a day [Active]; Eliquis 5 mg oral tab 1 tab 2 times per day [Active]; rosuvastatin 10 mg Oral tab 1 tab once daily [Active]; spironolactone 25 mg oral tab 1 tab once daily [Active]; bumetanide 0.5 mg oral tab 1 tab once daily [Active]; tamsulosin 0.4 mg Oral cp24 1 cap once daily [Active]; nitroglycerin 0.4 mg SL subl 1 tab every 5 minutes for Angina [Active]; Lantus 100 unit/mL Sub-Q soln 100 unit daily [Active]; Victoza 3-Abundio 0.6 mg/0.1 mL (18 mg/3 mL) subcutaneous pnij 1.8 mL once daily [Active]; metformin 500 mg oral Tb24 1 tab once daily [Active]; lansoprazole 30 mg Oral cpDR 1 cap nightly [Active]; Jardiance 25 mg Oral tab 1 tab once daily [Active]; Orencia (with maltose) 250 mg intravenous solr every 4 wks [Active]; methocarbamol 750 mg Oral tab 1 tab every 4 hours [Active]; - PMHx: 09:55 Angina; Atrial Fib; Diabetes - IDDM; GERD; Hypertension; Rheumatoid Arthritis; bp - Immunization history:: Adult Immunizations unknown. - Social history:: Smoking status: unknown. - Family history:: not pertinent. Screenin:45 Abuse screen: Denies threats or abuse. Denies injuries from another. Nutritional bp screening: No deficits noted. Tuberculosis screening: No symptoms or risk factors identified. Fall Risk No fall in past 12 months (0 pts). No secondary diagnosis (0 pts). IV access (20 points). Ambulatory Aid- None/Bed Rest/Nurse Assist (0 pts). Gait- Normal/Bed Rest/Wheelchair (0 pts) Mental Status- Overestimates/Forgets Limitations (15 pts.). Total Zhong Fall Scale indicates Low Risk Score (25-44 pts). Fall prevention measures have been instituted. Side Rails Up X 2 Placed close to Nursing Station Frequent Obs/Assesments occuring As available Patient and Family Educated on Fall Prevention Program and strategies. Assessment: 09:45 General: SEE TRIAGE NOTE. bp 10:30 Reassessment: MD AT B/S FOR CVC PLACEMENT. bp 10:41 Reassessment: ANGEL HUGGER APPLIED. PT NOTABLY HYPOTHERMIC ON CORE MONITOR. bp 12:52 Reassessment: family left pt belongings at bedside. family collected ID and was taken jd3 home with family. 14:00 Reassessment: No changes from previously documented assessment. ADMIT IN PROCESS. bp 14:53 Reassessment: ADMIT COMPLETE. REPORT TO MANUEL JOEL FOR ICU 2. bp 15:51 Reassessment: PT CHELSI TO ICU WITH RN. bp Vital Signs: 09:36 BP 126 / 59; Pulse 118; Resp 26; Pulse Ox 96% on 15% Non-rebreather mask; Weight 72.57 bp kg; 09:42 BP 72 / 53; Pulse 117; Resp 26 S; Pulse Ox 98% on Non-rebreather mask; iw 09:59 BP 91 / 53; Pulse 108; Resp 26 S; Pulse Ox 98% on Non-rebreather mask; iw 10:26 BP 119 / 78; Pulse 109; Resp 23; Temp 93.5; Pulse Ox 100% ; bp 10:41 BP 84 / 58; Pulse 110; Resp 22; Temp 92.8; Pulse Ox 100% ; bp 11:00 BP 100 / 58; Pulse 17; Resp 23; Temp 92; Pulse Ox 100% on R/A; bp 12:00 BP 88 / 63; Pulse 110; Resp 23; Temp 93.4; Pulse Ox 99% ; bp 13:00 BP 107 / 58; Pulse 110; Resp 23; Temp 95.4; Pulse Ox 99% ; bp 14:00 BP 113 / 69; Pulse 117; Resp 25; Temp 97.6; Pulse Ox 99% ; bp 15:00 BP 93 / 52; Pulse 123; Resp 19; Temp 98.6; Pulse Ox 98% ; bp ED Course: 09:35 Patient arrived in ED. bp 09:35 Arm band placed on. bp 09:36 Lauri Abel MD is Attending Physician. elizabeth 09:38 Triage completed. bp 09:42 Initial lab(s) drawn, by ia, sent to lab. Inserted saline lock: 20 gauge in right iw forearm, using aseptic technique. 09:43 EKG done, by ED staff, reviewed by Lauri Abel MD. em1 09:45 Hand cath inserted, using sterile technique, 18 Fr., by ED staff, balloon inflated, to bp gravity drainage, urine specimen collected. returned danelle urine. Patient tolerated well. 09:45 Patient has correct armband on for positive identification. Placed in gown. Bed in low bp position. Call light in reach. Side rails up X2. quality assurance monitor final on. Pulse ox on. NIBP on. 09:50 Inserted saline lock: 20 gauge in left antecubital area, using aseptic technique. iw 09:53 Mann Kwong, RN is Primary Nurse. bp 10:12 CT Head Brain wo Cont In Process Unspecified. EDMS 10:12 CT Chest Abdomen Pelvis W/O Contrast In Process Unspecified. EDMS 10:30 Assisted provider with central line placement. Set up central line tray. Triple lumen bp line placed in right femoral. Line placed by Lauri Abel MD Placement verified by blood return, Dressed with Tegaderm, Patient tolerated well. EMERGENT PROCEDURE, PT ALTERED AND UNABLE TO CONSENT Before procedure, did Practitioner(s) obtain informed consent? No. Patient \T\ family education about procedure, CLABSI prevention and S/S of infection? No. Time-out/Briefing performed prior to start of procedure? Yes. Was handwashing/sanitizing done immediately prior to procedure? Yes. Was patient positioned to in a way to prevent air embolism? Yes. Was procedure site sterilized? Yes, with chlorhexidine. Was the site allowed to dry? Yes. Was local anesthetic and/or sedation utilized? Yes. During the procedure, did the Practitioner(s) maintain a sterile field? Yes. Were unused ports clamped during insertion? Was a 2nd qualified MD obtained after 3 unsuccessful insertion attempts? N/A. Was blood aspirated from each lumen? Yes. After the procedure, did the Practitioner(s) clean the site and apply a sterile dressing? Yes. 10:40 Blood Culture Adult (2) Sent. bp 10:40 Basic Metabolic Panel Sent. bp 10:40 Amylase, Serum Sent. bp 10:43 Michael Ryan is Hospitalizing Provider. elizabeth 11:00 Chest Single View XRAY In Process Unspecified. EDMS 15:06 Patient admitted, IV remains in place. bp Administered Medications: 09:50 Drug: NS 0.9% (30 ml/kg) 30 ml/kg Route: IV; Rate: bolus; Site: right forearm; iw 15:08 Follow up: IV Status: Completed infusion; IV Intake: 2000ml bp 09:53 Drug: Rocephin (cefTRIAXone) 1 grams Route: IV; Rate: bolus; Site: right antecubital; bp 11:40 Follow up: IV Status: Completed infusion; IV Intake: 50ml bp 10:15 Drug: Pepcid (famotidine) 20 mg Route: IVP; Site: left forearm; bp 11:40 Follow up: Response: No adverse reaction bp 10:50 Drug: Solu-CORTEF (hyrdoCORTISONE) 100 mg Route: IVP; Site: left forearm; bp 11:40 Follow up: Response: No adverse reaction bp 11:00 Drug: Insulin Drip - (Insulin Regular Human 100 units, NS 0.9% 100 ml) {Co-Signature: bp bernard (López Catalan RN).} Route: IV; Rate: 5 units/hr; Site: right femoral; 15:08 Follow up: IV Status: Infusion continued upon admission bp Intake: 11:40 IV: 50ml; Total: 50ml. bp 15:08 IV: 2000ml; Total: 2050ml. bp Outcome: 10:45 Decision to Hospitalize by Provider. elizabeth 15:07 Admitted to ICU accompanied by nurse, via stretcher, room 2, with chart, Report called bp to MANUEL JOEL 15:07 Condition: stable 15:07 Instructed on the need for admit. 15:51 Patient left the ED. bp Signatures: Dispatcher [employer] EDKY Lauri Abel MD MD cha Williams, Irene, RN WISAM Tomy Avila em1 López Catalan RN RN jd3 Mann Kwong RN RN bp López Catalan RN jd3 Corrections: (The following items were deleted from the chart) :58 08:42 Inserted saline lock: 20 gauge in right forearm, using aseptic technique. [facility] :58 08:42 Initial lab(s) drawn, by me, sent to lab. [facility] 10:24 09:36 BP 126 / 59; Pulse 118bpm; Resp 26bpm; Pulse Ox 96% 02 15% Non-rebreather mask; bp Temp 97.5F; 72.57 kg; bp 15:10 12:00 BP 88 / 63; Pulse 110bpm; Resp 23bpm; Pulse Ox 99%; bp bp 15:10 13:00 BP 107 / 58; Pulse 110bpm; Resp 23bpm; Pulse Ox 99%; bp bp 15:10 15:00 BP 93 / 52; Pulse 123bpm; Resp 19bpm; Pulse Ox 98%; bp bp 15:10 14:00 BP 113 / 69; Pulse 117bpm; Resp 25bpm; Pulse Ox 99%; bp bp
[2021-11-06 10:53] LABS: Urine Amorphous Sediment 1+ /HPF (NONE SEEN); Urine Bacteria NONE SEEN /HPF (NONE SEEN); Urine Mucus LIGHT /HPF (NONE SEEN); Urine RBC NONE SEEN /HPF (NONE SEEN)
[2021-11-06] MEDS ORDERED: INSULIN -REGULAR HUMAN 100 UNIT in NA CHLORIDE 0.9% 100 ML IV ONE (11:00)
[2021-11-06] MEDS ORDERED: HYDROCORTISONE SUC 100 MG INJ ONE (11:02)
[2021-11-06 11:10] LABS: SARS-COV-2 RT PCR NEGATIVE (NEGATIVE)
--- NOTE | 2021-11-06 11:46 | RAD REPORT ---
EXAM DESCRIPTION: RAD - Chest Single View - 11/06/2021 10:59 am CLINICAL HISTORY: DYSPNEA COMPARISON: Chest Single View dated 08/30/2020; Chest Single View dated 05/20/2020; Chest Single View dated 12/15/2019; Chest Single View dated 12/13/2019 FINDINGS: Lines: None. Lungs: No evidence of edema or pneumonia. Pleural: No significant pleural effusions or pneumothorax. Cardiac: The heart size is within normal limits. Bones: No acute fractures. Other: IMPRESSION: No acute cardiopulmonary disease.
--- NOTE | 2021-11-06 12:02 | P.HP ---
Certification for Inpatient Patient admitted to: Inpatient With expected LOS: >2 Midnights Practitioner: I am a practitioner with admitting privileges, knowledge of patient current condition, hospital course, and medical plan of care. Services: Services provided to patient in accordance with Admission requirements found in Title 42 Section 412.3 of the Code of Federal Regulations Patient History Date of Service: 11/06/21 Reason for admission: Shortness of breath History of Present Illness: 76-year-old gentleman with a history of hypertension, diabetes mellitus on Lantus insulin and Metformin was brought to the emergency department due to shortness of breath. According to the family, they thought he was having respiratory symptoms from allergy. Work-up in the emergency department revealed patient is in full-blown DKA with a pH of 7.0, blood sugar elevated to 416, hyperkalemia, metabolic acidosis with bicarb level of 8. Also has leukocytosis. Patient noted to be hypotensive and given bolus of normal saline. Also hypothermic needing a warming blanket. Patient has leukocytosis with a WBC count of 17,000. Chest x-ray shows no acute infiltrate. UA no evidence of UTI. Patient is admitted to ICU for further management of DKA with hypotension. Allergies No Known Allergies Allergy (Verified 06/18/14 13:42) Home Medications: Insulin Glargine,Hum.rec.anlog [Lantus] 100 units SQ DAILY 06/18/14 Liraglutide [Victoza 2-Abundio] 1.8 mg SQ DAILY 06/18/14 Rosuvastatin Calcium [Crestor] 40 mg PO DAILY 06/18/14 Empagliflozin [Jardiance] 25 mg PO DAILY 12/12/[address] 30 mg PO DAILY 12/12/19 Metoprolol Tartrate 50 mg PO BID 12/12/19 Nitroglycerin 0.4 mg SL PRN PRN 12/12/19 Abatacept/Maltose [Orencia 250 mg Vial] 1 dose IV SEECOM 05/20/20 Clopidogrel Bisulfate [Plavix*] 75 mg PO DAILY 05/20/20 Metformin ER [Glucophage ER*] 1,000 mg PO DAILY 05/20/20 Ranolazine [Ranolazine ER] 500 mg PO DAILY 05/20/20 Benazepril HCl 10 mg PO DAILY #30 tablet 05/22/20 Tamsulosin [Flomax] 0.4 mg PO BEDTIME #30 cap 05/22/20 - Past Medical/Surgical History Diabetic: Yes -: Hypertension -: CAD -: IDDM -: GERD -: open femoral artery from stent surg. IV ABX x 14 d -: and wound care of Ns with packing since 02/22/20. denied MRSA -: Cardiac stents 02/22/20 -: Angiogram -: Right Knee surgery -: Bilateral feet surgery -: Cardiac stents 02/22/20 - Family History Father -: Heart disease Notes: father of heart attack Mother -: Heart disease Notes: mother of heart attack - Social History Alcohol use: Yes CD- Drugs: No Caffeine use: Yes Review of Systems Other: No reported nausea or vomiting or diarrhea. No fever. Patient is lethargic and cannot provide much history. Unable to obtain full review of systems. Physical Examination - Physical Exam General: Oriented x1, Acute distress, Other (Lethargic) HEENT: Other (Dry oral mucosa) Neck: JVD not distended Respiratory: Clear to auscultation bilaterally, Normal air movement, Other (Kussmaul's breathing) Cardiovascular: No edema, No murmurs, Other (Tachycardia) Gastrointestinal: Normal bowel sounds, Soft and benign, Non-distended, No tenderness Musculoskeletal: No swelling, No tenderness Integumentary: No rashes, No cyanosis Neurological: Other (Lethargic, no focal motor deficits.) Lymphatics: No axilla or inguinal lymphadenopathy - Studies Laboratory Data (last 24 hrs) 11/06/21 09:42: PT 12.0, INR 1.04, APTT 36.3 11/06/21 09:42: WBC 17.40 H, Hgb 15.4, Hct 48.5, Plt Count 229 11/06/21 09:42: Sodium 126 L, Potassium 5.7 H*, BUN 29 H, Creatinine 2.21 H, Glucose 416 H*, Total Bilirubin 0.7, AST 21, ALT 32, Alkaline Phosphatase 101, Amylase 497 H*, Lipase 45206 H Assessment and Plan - Problems (Diagnosis) (1) DKA (diabetic ketoacidosis) Current Visit: Yes Status: Acute (2) Hypovolemic shock Current Visit: Yes Status: Acute (3) Sepsis Current Visit: Yes Status: Acute (4) Hyponatremia Current Visit: Yes Status: Acute (5) Hyperkalemia Current Visit: Yes Status: Acute - Plan Admit patient to the ICU. DKA protocol initiated with aggressive IV fluid resuscitation with normal saline, insulin drip. Monitor BMP every 4 hours per DKA protocol. Continue warming blanket for hypothermia. Treatment of hyponatremia with IV normal saline. Empiric broad-spectrum IV antibiotics for possible sepsis Follow blood cultures. Keep n.p.o. until mental status improves. Blood pressure has improved with IV hydration. Continue to monitor and restart home antihypertensives for elevated blood pressure. Anticipate hyperkalemia to improve with insulin drip and normal saline. Will order 2 Amps of sodium bicarb. Recheck potassium level in 4 hours. - Advance Directives Does patient have a Living Will: Yes Does patient have a Durable POA for Healthcare: Yes
[2021-11-06 12:49] LABS: Magnesium 2.9 mg/dL (1.8-2.4)
[2021-11-06] MEDS ORDERED: VANCOMYCIN 1 GM in NA CHLORIDE 0.9% 250 ML IVPB SCH (14:55)
[2021-11-06] MEDS ORDERED: ONDANSETRON 4 MG/2 ML VIAL IV PRN (14:55)
[2021-11-06] MEDS: NA CHLORIDE 0.9% 1,000 ML IV SCH ×2 (14:55→21:35)
[2021-11-06 15:55] LABS: Anisocytosis 1+; Blood Morphology Comment NOTED (NOT SEEN); Platelet Estimate ADEQ; Poikilocytosis 1+; White Blood Cell Scan OK (OK)
[2021-11-06] MEDS ORDERED: VANCOMYCIN 1.75 GM in NA CHLORIDE 0.9% 500 ML IVPB ONE (16:00)
[2021-11-06 16:45] VITALS: BMI 21.7
[2021-11-06 18:19] LABS: Potassium 4.5 mmol/L (3.5-5.1)
[2021-11-06] MEDS ORDERED: D50W 25 GM/50 ML SYRINGE IV PRN (19:30)
[2021-11-06] MEDS: INSULIN -REGULAR HUMAN 100 UNIT in NA CHLORIDE 0.9% 100 ML IV SCH (19:30)
[2021-11-06] MEDS ORDERED: GLUCAGON 1 MG/VIAL IM PRN (19:30)
[2021-11-06 20:42] LABS: Potassium 4.1 mmol/L (3.5-5.1)
[2021-11-06] MEDS: D5 0.45 NS 1,000 ML IV SCH (22:10)
[2021-11-07] MEDS: D5 0.45 NS 1,000 ML IV SCH ×4 (04:15→22:31)
[2021-11-07 04:57] LABS: Absolute Lymphocytes (CBC) 0.6 K/uL (0.7-4.9); Hematocrit 39.6 % (39.6-49.0); Lymphocytes % 4.9 % (15.3-44.8); MPV 7.8 fL (7.6-11.3); RBC Red Blood Cell Count 4.01 M/uL (4.33-5.43)
[2021-11-07 05:20] LABS: Potassium 3.6 mmol/L (3.5-5.1); Thyroid Stimulating Hormone 1.01 uIU/mL (0.360-3.740)
[2021-11-07] MEDS: KCL 20 MEQ/100 mL IVPB 20 MEQ/100 ML BAG IV SCH ×4 (05:45→23:01)
--- NOTE | 2021-11-07 05:58 | P.PN ---
Date of Service: 11/07/21 Subjective: No acute events overnight. Continues on insulin drip Continues with some lethargy/confusion ROS: 10 point ROS as noted above, otherwise negative. Difficult to obtain due to altered mental status Physical exam GEN: Lethargic, awakens to verbal stimuli, oriented to self HEENT: Normal conjunctiva, sclera anicteric CV: Regular rate and rhythm Pulm: Nonlabored respirations on room air ABD: Soft, nontender, nondistended Integumentary: Slight erythema right foot Neuro: Lethargic, moves all extremities Problem List DKA Hypovolemic shock Sepsis Hyponatremia Hyperkalemia History of alcohol abuse Continue ICU level care DKA protocol, aggressive IV fluid resuscitation Gap closing, continues altered mental status, continue on insulin drip until anion gap closed and tolerating p.o. Continue empiric broad-spectrum IV antibiotics for possible sepsis Follow blood cultures reported excursion feeds, patient has refused treatment previously. Right foot slightly erythematous N.p.o. until mental status improves Monitor vital signs Continue frequent BMP checks reports patient is DNR, and history of alcohol abuse, has had withdrawal before Start alcohol withdrawal assessment, Ativan as needed VTE: lovenox Code: DNR Dispo: Continue ICU level of care, hospitalization > 2 days, anticipate home on discharge Time Spent Managing Pts Care (In Minutes): 35
[2021-11-07] MEDS: NA CHLORIDE 0.9% 1,000 ML IV SCH ×2 (07:46→16:00)
[2021-11-07] MEDS: CEFTRIAXONE 1,000 MG in NA CHLORIDE 0.9% 50 ML IVPB SCH (07:53)
--- NOTE | 2021-11-07 09:13 | EKG ---
Test Date: 2021-11-06 Test Time: 09:40:03 Violent Crimes Detective: YOUNG MEASUREMENT RESULTS: Intervals: Rate: 119 NV: 160 QRSD: 98 QT: 344 QTc: 483 [place]: P: 2 NV: 160 QRS: 21 T: 134 INTERPRETIVE STATEMENTS: Sinus tachycardia Low voltage QRS ST elevation, consider anterior injury or acute infarct ACUTE AL Abnormal ECG Compared to ECG 11/06/2021 09:35:36 Fusion complex(es) no longer present ST (T wave) deviation still present Myocardial infarct finding still present Electronically Signed On 11-07-21 09:09:28 MACHINIST APPRENTICE WOOD by Shubham Wilkerson
--- NOTE | 2021-11-07 09:13 | EKG ---
Test Date: 2021-11-06 Test Time: 09:35:36 Retail Warehouse Supervisor: YOUNG MEASUREMENT RESULTS: Intervals: Rate: 120 TN: 154 QRSD: 94 QT: 338 QTc: 477 [place]: P: 23 TN: 154 QRS: 34 T: 120 INTERPRETIVE STATEMENTS: Sinus tachycardia with fusion complexes Low voltage QRS ST elevation, consider inferior injury or acute infarct ACUTE MT Consider right ventricular involvement in acute inferior infarct Abnormal ECG Compared to ECG 08/30/2020 16:16:48 Fusion complex(es) now present ST (T wave) deviation now present Myocardial infarct finding still present Myocardial infarct finding still present Electronically Signed On 11-07-21 09:09:29 SPOTLIGHT OPERATOR by Shubham Wilkerson
[2021-11-07 09:54] LABS: Potassium 3.9 mmol/L (3.5-5.1)
[2021-11-07] MEDS ORDERED: FLUMAZENIL 0.1 MG/ML (5 mL VIAL) IV PRN (11:03)
[2021-11-07] MEDS ORDERED: LORazepam 2 MG/ML VIAL IV PRN (11:03)
[2021-11-07] MEDS ORDERED: SUCCINYLCHOLINE 20 MG/ML (10 ML) IV ONE (12:20)
[2021-11-07 13:05] LABS: Potassium 3.6 mmol/L (3.5-5.1)
[2021-11-07] MEDS: VANCOMYCIN 1.25 GM in NA CHLORIDE 0.9% 250 ML IVPB SCH (16:32)
[2021-11-07 17:15] LABS: Potassium 3.4 mmol/L (3.5-5.1)
[2021-11-07] MEDS: INSULIN -REGULAR HUMAN 100 UNIT in NA CHLORIDE 0.9% 100 ML IV SCH (20:10)
[2021-11-08] MEDS ORDERED: VANCOMYCIN 1.25 GM in NA CHLORIDE 0.9% 250 ML IVPB SCH ×4 (04:00)
[2021-11-08 05:11] LABS: MPV 8.5 fL (7.6-11.3); RBC Red Blood Cell Count 4.11 M/uL (4.33-5.43)
--- NOTE | 2021-11-08 06:12 | P.PN ---
Date of Service: 11/08/21 Subjective: more awake/alert this morning still slow to answer some questions no acute events overnight denies pain, does not recall events preceding admission ROS: 10 point ROS as noted above, otherwise negative. Physical exam GEN: AOx3, NAD, slow to answer HEENT: Normal conjunctiva, sclera anicteric CV: Regular rate and rhythm Pulm: Nonlabored respirations on room air ABD: Soft, nontender, nondistended Integumentary: b/l small eschar on toes Neuro: AOx3, moves extremities, slowed speech Problem List DKA Hypovolemic shock Sepsis Hyponatremia Hyperkalemia History of alcohol abuse Continue ICU level care DKA protocol, aggressive IV fluid resuscitation Gap closing, more awake bedside swallow, advance as tolerated. speech therapy if needed if tolerating PO and gap closed, can transition off insulin drip Follow blood cultures patient has refused treatment previously for toe eschars, mild erythema around eschar continue empiric antibiotics through today, anticipate de-escalation tomorrow Monitor vital signs reports patient is DNR, and history of alcohol abuse, has had withdrawal before Started alcohol withdrawal assessment, Ativan as needed on 11/07 banana bag ordered VTE: lovenox Code: DNR Dispo: Continue ICU level of care, hospitalization > 2 days, anticipate home on discharge Time Spent Managing Pts Care (In Minutes): 35
[2021-11-08 07:45] LABS: Potassium 3.7 mmol/L (3.5-5.1)
[2021-11-08] MEDS: NA CHLORIDE 0.9% 1,000 ML IV SCH ×2 (08:00)
[2021-11-08] MEDS: CEFTRIAXONE 1,000 MG in NA CHLORIDE 0.9% 50 ML IVPB SCH (08:20)
[2021-11-08] MEDS ORDERED: THIAMINE 200 MG/2 ML INJ ONE (08:20)
[2021-11-08] MEDS: FOLIC ACID 1 MG, MULTIVITAMINS INJ 10 ML, THIAMINE HCL 100 MG in NA CHLORIDE 0.9% 1,000 ML IV SCH (08:20)
[2021-11-08] MEDS ORDERED: NA CHLORIDE 0.9% 0 ML ONE (08:20)
[2021-11-08 11:41] LABS: Potassium 3.3 mmol/L (3.5-5.1)
[2021-11-08] MEDS: KCL 20 MEQ/100 mL IVPB 20 MEQ/100 ML BAG IV SCH ×2 (14:03→17:14)
[2021-11-08] MEDS ORDERED: D10W 250 ML BAG IV PRN (14:20)
[2021-11-08 17:07] LABS: Potassium 3.8 mmol/L (3.5-5.1)
[2021-11-08] MEDS: VANCOMYCIN 1.25 GM in NA CHLORIDE 0.9% 250 ML IVPB SCH (17:14)
[2021-11-08] MEDS: D5 0.45 NS 1,000 ML IV SCH (23:18)
--- NOTE | 2021-11-09 06:01 | P.PN ---
Date of Service: 11/09/21 Subjective: improving, more awake/alert tolerated sips yesterday no appetite. slept most of day yesterday ROS: 10 point ROS as noted above, otherwise negative. Physical exam GEN: AOx3, NAD, slow to answer HEENT: Normal conjunctiva, sclera anicteric CV: Regular rate and rhythm Pulm: Nonlabored respirations on room air ABD: Soft, nontender, nondistended Integumentary: b/l small eschar on toes Neuro: AOx3, moves extremities, slowed speech Problem List DKA Hypovolemic shock Sepsis Hyponatremia Hyperkalemia History of alcohol abuse Continue ICU level care DKA protocol, IVF Gap closing, more awake tolerated sips if tolerates more PO, plan to transition off insulin drip with dinner continue ICU monitor for withdrawal patient has refused treatment previously for toe eschars, mild erythema around eschar reports patient is DNR, and history of alcohol abuse, has had withdrawal before Started alcohol withdrawal assessment, Ativan as needed on 11/07 banana bag ordered PT VTE: lovenox Code: DNR Dispo: Continue ICU level of care, anticipate home on discharge, ~2 days Time Spent Managing Pts Care (In Minutes): 35
[2021-11-09 07:18] LABS: Hematocrit 41.1 % (39.6-49.0); MPV 8.3 fL (7.6-11.3); RBC Red Blood Cell Count 4.07 M/uL (4.33-5.43)
[2021-11-09 07:35] LABS: Albumin 3.2 g/dL (3.4-5.0); Bilirubin Total 0.6 mg/dL (0.2-1.0); Magnesium 2.1 mg/dL (1.8-2.4); Potassium 3.7 mmol/L (3.5-5.1); Protein, Total 6.7 g/dL (6.4-8.2)
[2021-11-09] MEDS: VANCOMYCIN 1.25 GM in NA CHLORIDE 0.9% 250 ML IVPB SCH (08:57)
[2021-11-09] MEDS: FOLIC ACID 1 MG, MULTIVITAMINS INJ 10 ML, THIAMINE HCL 100 MG in NA CHLORIDE 0.9% 1,000 ML IV SCH (08:57)
[2021-11-09] MEDS: CEFTRIAXONE 1,000 MG in NA CHLORIDE 0.9% 50 ML IVPB SCH (09:04)
[2021-11-09] MEDS ORDERED: GLUCAGON 1 MG/VIAL IM PRN (14:08)
[2021-11-09] MEDS ORDERED: D50W 25 GM/50 ML SYRINGE IV PRN (14:08)
[2021-11-09] MEDS: INSULIN -REGULAR HUMAN 50 UNIT/0.5 ML ML SQ SCH ×2 (16:30→19:45)
[2021-11-09] MEDS ORDERED: INSULIN GLARGINE 100 UNIT/ML SQ ONE (16:30)
[2021-11-09] MEDS: D5 0.45 NS 1,000 ML IV SCH (23:05)
[2021-11-10 03:20] LABS: Magnesium 1.9 mg/dL (1.8-2.4); Potassium 3.2 mmol/L (3.5-5.1)
[2021-11-10] MEDS: VANCOMYCIN 1.25 GM in NA CHLORIDE 0.9% 250 ML IVPB SCH (03:55)
[2021-11-10] MEDS ORDERED: POTASSIUM 25 MEQ EFFERV TAB PO ONE (04:00)
--- NOTE | 2021-11-10 05:58 | P.PN ---
Date of Service: 11/10/21 Subjective: improving, more alert tolerating PO off insulin drip since last night ROS: 10 point ROS as noted above, otherwise negative. Physical exam GEN: AOx3, NAD HEENT: Normal conjunctiva, sclera anicteric CV: Regular rate and rhythm Pulm: Nonlabored respirations on room air ABD: Soft, nontender, nondistended Integumentary: b/l small eschar on toes Neuro: AOx3, moves extremities, slowed speech Problem List DKA Hypovolemic shock Sepsis Hyponatremia Hyperkalemia History of alcohol abuse improving off insulin drip continue lantus, slidng scale, advance diet as tolerated Stable to transfer to floor later today monitor for withdrawal reports patient is DNR, and history of alcohol abuse, has had withdrawal before Started alcohol withdrawal assessment, Ativan as needed on 11/07 banana bag ordered PT VTE: lovenox Code: DNR Dispo: home, 1-2 days Time Spent Managing Pts Care (In Minutes): 35
[2021-11-10] MEDS: INSULIN -REGULAR HUMAN 50 UNIT/0.5 ML ML SQ SCH ×4 (07:30→20:51)
[2021-11-10] MEDS: FOLIC ACID 1 MG, MULTIVITAMINS INJ 10 ML, THIAMINE HCL 100 MG in NA CHLORIDE 0.9% 1,000 ML IV SCH (08:22)
[2021-11-10] MEDS: CEFTRIAXONE 1,000 MG in NA CHLORIDE 0.9% 50 ML IVPB SCH (08:22)
[2021-11-10] MEDS ORDERED: POTASSIUM CL SA 10 MEQ TAB PO ONE (12:00)
[2021-11-10 22:02] VITALS: O2SAT 98
[2021-11-11 05:56] LABS: Potassium 3.4 mmol/L (3.5-5.1)
--- NOTE | 2021-11-11 06:43 | P.PN ---
Date of Service: 11/11/21 Subjective: ROS: 10 point ROS as noted above, otherwise negative. Physical exam GEN: AOx3, NAD HEENT: Normal conjunctiva, sclera anicteric CV: Regular rate and rhythm Pulm: Nonlabored respirations on room air ABD: Soft, nontender, nondistended Integumentary: b/l small eschar on toes Neuro: AOx3, moves extremities, slowed speech Problem List DKA Hypovolemic shock Sepsis Hyponatremia Hyperkalemia History of alcohol abuse improving off insulin drip continue lantus, slidng scale, advance diet as tolerated Stable to transfer to floor later today monitor for withdrawal reports patient is DNR, and history of alcohol abuse, has had withdrawal before Started alcohol withdrawal assessment, Ativan as needed on 11/07 banana bag ordered PT VTE: lovenox Code: DNR Dispo: home, 1-2 days Time Spent Managing Pts Care (In Minutes): 35
[2021-11-11] MEDS: INSULIN -REGULAR HUMAN 50 UNIT/0.5 ML ML SQ SCH ×2 (07:30→12:05)
[2021-11-11] MEDS: CEFTRIAXONE 1,000 MG in NA CHLORIDE 0.9% 50 ML IVPB SCH (08:51)
[2021-11-11] MEDS ORDERED: CEFTRIAXONE 1000 MG/VIAL ONE (08:53)
[2021-11-11] MEDS ORDERED: NA CHLORIDE 0.9% 50 ML ONE (08:54)
[2021-11-11] MEDS ORDERED: POTASSIUM CL SA 10 MEQ TAB PO ONE (09:00)
[2021-11-11] MEDS: FOLIC ACID 1 MG, MULTIVITAMINS INJ 10 ML, THIAMINE HCL 100 MG in NA CHLORIDE 0.9% 1,000 ML IV SCH (09:00)
[2021-11-11] MEDS ORDERED: METOPROLOL TAR 50 MG TAB PO SCH (09:00)
[2021-11-11] MEDS ORDERED: LEVOTHYROXINE SOD 0.05 MG TABLET PO SCH (09:00)
[2021-11-11] MEDS ORDERED: ASPIRIN EC 81 MG TAB PO SCH (09:00)
[2021-11-11] MEDS ORDERED: VITAMIN D 1000 UNIT TAB PO SCH (09:00)
[2021-11-11 12:08] VITALS: BP 113/70; TEMP 97.1
--- NOTE | 2021-11-11 18:00 | P.DS ---
Admission Date: 11/06/21 Discharge Date: 11/11/21 Disposition: DC HOME/HOME HEALTH CARE Reason for Admission: Shortness of breath Procedures: Problem List DKA with hypovolemic shock sepsis ruled out Hyponatremia Hyperkalemia History of alcohol abuse Brief History of Present Illness: 76-year-old gentleman with a history of hypertension, diabetes mellitus on Lantus insulin and Metformin was brought to the emergency department due to shortness of breath. According to the family, they thought he was having respiratory symptoms from allergy. Work-up in the emergency department revealed patient is in full-blown DKA with a pH of 7.0, blood sugar elevated to 416, hyperkalemia, metabolic acidosis with bicarb level of 8. Also has leukocytosis. Patient noted to be hypotensive and given bolus of normal saline. Also hypothermic needing a warming blanket. Patient has leukocytosis with a WBC count of 17,000. Chest x-ray shows no acute infiltrate. UA no evidence of UTI. Patient is admitted to ICU for further management of DKA with hypotension. Hospital Course: Patient was found to be in DKA. He was admitted to the ICU and slowly improved with IV fluids and Insulin drip. He was monitored for alccohol withdrawal. He had improvement and was advanced to a diabetic diet and blood glucose levels remained in the 120s-200s with lantus. On discharge, recommend continuing with lantus 20 units in the morning. Check fasting blood glucose levels, if remains >200, to increase by 5units each day. discussed his blood glucose levels will likely slowly increase as he eats more. He is to record his glucose levels and follow up with his PCP / Information Technology Audit Manager within 1 week Patient was treated with empiric antibiotics for possible infection. No antibiotics indicated on discharge. There was no evidence of infection / acute process on CT of chest/abdomen /pelvis. He had small eschars on bilateral feet/toes. Wound care was consulted and recommended clean with normal saline, apply cavilon lotion every saturday, , saturday Patient to follow up with PCP financial services sales representative consulted, patient would benefit from more frequent checks. Vital Signs/Physical Exam: Temp Pulse Resp BP Pulse Ox 97.1 F 84 14 113/70 97 11/11/21 12:00 11/11/21 12:00 11/11/21 12:11/11/21 12:00 11/11/21 12:00 Physical exam GEN: AOx3, NAD HEENT: Normal conjunctiva, sclera anicteric CV: Regular rate and rhythm Pulm: Nonlabored respirations on room air ABD: Soft, nontender, nondistended Integumentary: b/l small eschar on toes, no surrounding erythema, no added warmth Neuro: AOx3, moves extremities Laboratory Data at Discharge: WBC 7.90 K/uL (4.3-10.9) D 11/09/21 05:36 Hgb 13.9 g/dL (13.6-17.9) 11/09/21 05:36 Hct 41.1 % (39.6-49.0) 11/09/21 05:36 Plt Count 133 K/uL (152-406) L 11/09/21 05:36 PT 12.0 SECONDS (9.5-12.5) 11/06/21 09:42 INR 1.04 11/06/21 09:42 APTT 36.3 SECONDS (24.3-36.9) 11/06/21 09:42 Sodium 137 mmol/L (136-145) 11/11/21 05:11 Potassium Cancelled 11/11/21 15:00 BUN 7 mg/dL (7-18) 11/11/21 05:11 Creatinine 0.92 mg/dL (0.55-1.3) 11/11/21 05:11 Glucose 224 mg/dL (74-106) H 11/11/21 05:11 Magnesium 2.0 mg/dL (1.8-2.4) 11/11/21 05:11 Total Bilirubin 0.6 mg/dL (0.2-1.0) 11/09/21 05:30 AST 22 U/L (15-37) 11/09/21 05:30 ALT 23 U/L (12-78) 11/09/21 05:30 Alkaline Phosphatase 77 U/L (45-117) 11/09/21 05:30 Triglycerides 259 mg/dL (<150) H 11/07/21 04:35 Cholesterol 128 mg/dL (<200) 11/07/21 04:35 HDL Cholesterol 31 mg/dL (40-60) L 11/07/21 04:35 Cholesterol/HDL Ratio 4.13 11/07/21 04:35 Amylase 497 U/L (25-115) H* 11/06/21 09:42 Lipase 94851 U/L (73-393) H 11/06/21 09:42 Home Medications: Liraglutide [Victoza 2-Abundio] 1.8 mg SQ DAILY 06/18/14 Rosuvastatin Calcium [Crestor] 10 mg PO DAILY 06/18/14 Empagliflozin [Jardiance] 25 mg PO DAILY 12/12/[address] 30 mg PO DAILY 12/12/19 Metoprolol Tartrate 50 mg PO BID 12/12/19 Nitroglycerin 0.4 mg SL PRN PRN 12/12/19 Abatacept/Maltose [Orencia 250 mg Vial] 1 dose IV SEECOM 05/20/20 Ranolazine [Ranolazine ER] 500 mg PO DAILY 05/20/20 Tamsulosin [Flomax*] 0.4 mg PO BEDTIME #30 cap 05/22/20 Apixaban [Eliquis *] 5 mg PO DAILY 11/06/21 Aspirin [Aspirin EC 81 MG] 81 mg PO DAILY 11/06/21 Cholecalciferol (Vitamin D3) [Vitamin D 1000 Iu Tab*] 1,000 unit PO DAILY 11/06/21 Levothyroxine Sodium [Tirosint] 50 mcg PO DAILY 11/06/21 Vitamin B Complex [Vitamin B Complex*] 1 cap PO DAILY 11/06/21 methocarbamoL [Methocarbamol] 750 mg PO DAILY 11/06/21 Dimethicone [Cavilon Durable Barrier] 92 gm TP M,W,F 30 Days #1 cream..g. 11/11/21 Insulin Glargine,Hum.rec.anlog [Lantus] 20 units SQ DAILY #30 ml 11/11/21 New Medications: Dimethicone [Cavilon Durable Barrier] 92 gm TP M,W,F 30 Days #1 cream..g. Insulin Glargine,Hum.rec.anlog [Lantus] 20 units SQ DAILY #30 ml Physician Discharge Instructions: Patient was found to be in DKA. He was admitted to the ICU and slowly improved with IV fluids and Insulin drip. He was monitored for alccohol withdrawal. He had improvement and was advanced to a diabetic diet and blood glucose levels remained in the 120s-200s with lantus. On discharge, recommend continuing with lantus 20 units in the morning. Check fasting blood glucose levels, if remains >200, to increase by 5units each day. discussed his blood glucose levels will likely slowly increase as he eats more. He is to record his glucose levels and follow up with his PCP / Information Technology Audit Manager within 1 week Patient was treated with empiric antibiotics for possible infection. No antibiotics indicated on discharge. There was no evidence of infection / acute process on CT of chest/abdomen /pelvi s. He had small eschars on bilateral feet/toes. Wound care was consulted and recommended clean with normal saline, apply cavilon lotion every saturday, , saturday Patient to follow up with PCP financial services sales representative consulted, patient would benefit from more frequent checks. Time spent managing pt's care (in minutes): 45
[2021-11-11] MEDS ORDERED: TAMSULOSIN 0.4 MG SR CAP PO SCH (21:00)
== END 2021-11-11 13:08 | disposition home health service (06) | DRG 637 ==
LOC: ER 09:32 → ERHOLD 11:18 → 3RD-ICU 14:54 → 2ND 11-10 18:12
PROVIDERS: ADMIT Internal Medicine; ATTEND Hospitalist
DX: E10.10 Type 1 diabetes mellitus with ketoacidosis without coma (principal); R57.1 Hypovolemic shock; N17.9 Acute kidney failure, unspecified; E87.1 Hypo-osmolality and hyponatremia; F10.139 Alcohol abuse with withdrawal, unspecified; E86.1 Hypovolemia; I10 Essential (primary) hypertension; E87.5 Hyperkalemia; M06.9 Rheumatoid arthritis, unspecified; K21.9 Gastro-esophageal reflux disease without esophagitis; T68.XXXA Hypothermia, initial encounter; Z66 Do not resuscitate; Z79.82 Long term (current) use of aspirin; Z79.01 Long term (current) use of anticoagulants; Z79.4 Long term (current) use of insulin; Z79.899 Other long term (current) drug therapy; Z79.84 Long term (current) use of oral hypoglycemic drugs; Z79.02 Long term (current) use of antithrombotics/antiplatelets; Z95.5 Presence of coronary angioplasty implant and graft; Z20.822 Contact with and (suspected) exposure to COVID-19
CPT/HCPCS: 0240U; 36415; 51702; 70450; 71045; 71250; 74176; 80048; 80053; 80061; 80076; 80202; 81003; 81015; 82150; 82550; 82553; 82805; 82947; 83605; 83690; 83735; 83880; 84132; 84145; 84443; 84484; 85025; 85027; 85610; 85730; 87040; 93005; 94760; 97116; 97161; 97530; 99251; 99285; J0330; J1720; J3370; J3411; J3480; J7030; J7040; J7050; J7799

== ENCOUNTER 2022-02-06 09:54 | Emergency (ER) | payer OTHER ==
--- OUTSIDE RECORDS SUMMARY | 2022-02-06 10:01 | XMS REPORT | Continuity of Care Document ---
:1945 Author Organization [facility] t Address [address] [place] [address] Care Team Providers Name Role Phone Asked, Pcp Primary Care Physician Unavailable Sandee MOLINA Attending Clinician Unavailable Jason Hernandez Attending Clinician Unavailable [email or web address] Attending Clinician Unavailable Adrien Attending Clinician [phone] Hilda WESTFALL, N. Attending Clinician Srinivas Attending Clinician Darrell Huang NP Attending Clinician MD Tatianna STEVENS Attending Clinician Unavailable Provider Attending Clinician Unavailable Rodney Gordon DPM Attending Clinician Ritesh Gruber MD Attending Clinician Tamia Attending Clinician Unavailable BERYL MOLINA Attending Clinician Unavailable ROBINSON KING Attending Clinician Unavailable GISELEL Attending Clinician Unavailable LISETTE GARDNER Attending Clinician Unavailable Sandee MOLINA Admitting Clinician Unavailable Physician, Primary or Family Admitting Clinician UnavailJason Hammond Admitting Clinician Unavailable [email or web address] Admitting Clinician Unavailable HILDA Admitting Clinician Unavailable MD Tatianna STEVENS Admitting Clinician Unavailable AZRA VERDE Admitting Clinician Unavailable LISETTE GARDNER Admitting Clinician Unavailable Payers Payer Name Policy Type Policy Number Effective Date Expiration Date Sandee bates MEDICARE A B [id number] 2009 00:00:00 [employer] INDEMNITY [id number] 2016 00:00:00 MEDICARE B-[place]: [id number] 2009 [employer] 00:00:00 [employer] (MEDICARE [id number] SUPPLEMENT) CDC REVIEW [id number] 2020 00:00:00 Problems Condition Condition Condition Status Onset Resolution Last Treating Co mments Source Name Details Category Date Date Treatment Clinician Date Preop Preop Disease Active [facility] testing testing [facility] 00[facility] Hospita 00 l Coronary [facility] Disease [facility] disease [facility]: [facility] involving involving [facility] [place] [facility] heart without without angina angina pectoris, pectoris, unspecifie unspecifie d vessel d vessel or lesion or lesion type type CAD, CAD, Disease Active [facility] multiple multiple 4-07 [facility] vessel vessel 00:00: Medical Center No known No known Disease [facility] active active [place] problems problems of Medicin e Acute Acute Disease Active [facility] respirator respirator Heather kes y y Medical insufficie insufficie Ce nter ncy ncy Acute Acute Disease Active [facility] blood loss blood loss [facility] anemia anemia [facility] Hyperglyce Hyperglyce Disease Active [facility] Allergies, Adverse Reactions, Alerts Allergy Allergy Status Severity Reaction(s) Onset Inactive Treating Comm ents Source Name Type Date Date Clinician No Known DA Active U 2019-09 [facility] Allergie 2-22 Clear s 00:00: Horowitz 00 [facility] No Known DA Active U 2019-09 [facility] Allergie 2-22 Clear s 00:00: Horowitz 00 [facility] NO KNOWN Allergy Active [facility] Family History Family Member Diagnosis Comments Start Date Stop Date Source Natural father Heart disease [facility] Natural mother Heart disease [facility] Social History Social Habit Start Date Stop Date Quantity Comments Source History of tobacco Smoker [facility] use of Medicine History SDOH [facility] Alcohol Frequency Hospita l History SDOH [facility] Alcohol Std Drinks Hospit al History SDWA [facility] Alcohol intake 2021-04-12 2021-04-12 Current drinker [facility] 00:00:00 00:00:00 of alcohol Hospital (finding) Alcohol Comment 2021-04-12 2021-04-12 2-4 drinks per [facility] 00:00:00 00:00:00 night Hospital Tobacco use and 2021-04-05 2021-04-05 Smokeless tobacco [facility] exposure 00:00:00 00:00:00 non-user Hospital Tobacco Comment 2021-04-05 2021-04-05 quit 1978 [facility] 00:00:00 00:00:00 Hospital Cigarettes smoked 2020-11-19 2020-11-19 [facility] current (pack per 00:00:00 00:00:00 [facility] ) - Reported Cigarette 2020-11-19 2020-11-19 [facility] pack-years 00:00:00 00:00:00 of Medicine Sex [birth year] [facility] 00:00:00 00:00:00 Hospital Smoking Status Start Date Stop Date Source Former smoker 2020-11-19 00:00:00 2020-11-19 00:00:00 [facility] amado of Medicine Medications Ordered Filled Start Stop Current Ordering [...] (two) l tablet times a day. apixaban 0 Yes Q.5D Take by Method i (ELIQUIS) 5 -[address] mg tablet 13:40: (two) Hospita 04 times a l day. rosuvastati 0 Yes 10mg QD Take 10 mg Methodi n (CRESTOR) [address] 10 mg 13:40: daily. [...] ann 25 mg 04 l tablet metFORMIN 0 Yes 500mg Q.5D Take 500 Met hodi (GLUCOPHAGE 8-[address] ) 500 mg 13:40: mouth 2 Hospit a tablet 04 (two) l times a day with meals. ferrous 2020-0 Yes 325mg QD Take 325 Metho di sulfate 325 8-[address] (65 FE) MG 13:40: mouth Hospit a tablet 04 daily with l breakfast. lansoprazol 0 Yes 30mg QD Take 30 mg Methodi e [address] (PREVACID) 13:40: daily. Hospi ta 30 MG 04 l capsule levothyroxi Yes 50ug QD Take 50 Met hodi ne sodium 8-[address] (Tirosint) 13:40: mouth Hospit a 50 mcg 04 daily. l capsule cholecalcif Yes 1000U QD Take 1,000 Methodi cooper, 8-[address] vitamin D3, 13:40: mouth Hospi ta 1,000 unit 04 daily. l tablet B complex Yes QD Take by Metho di with C 8-[address] 20-folic 13:40: daily. Hospita acid 1 mg 04 l capsule aspirin Yes 81mg QD Take 81 mg [facility] (ECOTRIN) [address] 81 MG 13:40: daily. Hospita enteric 04 l coated tablet ranolazine Yes 500mg Q.5D Take 500 Me thodi (RANEXA) 8-[address] 500 MG 12 13:40: mouth 2 Hospi ta hr ER 04 (two) l tablet times a day. apixaban Yes Q.5D Take by Method i (ELIQUIS) 5 8-[address] mg tablet 13:40: (two) [...] dinner. insulin Yes QD Inject Methodi GLARGINE [address] (LANTUS) 13:40: skin Hospita 100 unit/mL 04 nightly. l injection (vial) liraglutide Yes 1.8U/[o Inject 1.8 Methodi (VICTOZA 04-14 z_av]/d Units/oz/d st 2-CAR SUBQ) 13:40: ay under Ho spita 04 the skin. l vit B Yes Take by Methodi complex 8-[address] no.12/niaci 13:40: Hospit a n,B3, 04 l (VITAMIN B COMPLEX NO.12-NIACI N ORAL) empaglifloz Yes 25mg QD Take 25 mg Methodi in [address] (Jardiance) 13:40: daily. Hosp [...] QD Take 100 M ethodi succinate 04-14 08-[address] XL 13:40: 00:00 mouth Hospita (TOPROL-XL) 04 :00 daily. l 100 mg 24 hr tablet spironolact 2020- No 25mg QD Take 25 mg Methodi one 04-14- by mouth st (ALDACTONE) 13:40: 00:00 daily. Hos fernando 25 MG 04 :00 l tablet abatacept 2020- No Infuse Metho di ([place]rencia, 04-14- into a st with 13:40: 00:00 venous Hospita maltose,) 04 :00 catheter. l 250 mg Monthly injection metoprolol 2020- No 100mg QD Take 100 M ethodi succinate 04-14 08-[address] XL 13:40: 00:00 mouth Hospita (TOPROL-XL) 04 :00 daily. l 100 mg 24 hr tablet spironolact 2020- No 25mg QD Take 25 mg Methodi one 04-[address] (ALDACTONE) 13:40: 00:00 daily. Hos fernando 25 MG 04 :00 l tablet abatacept 2020- No Infuse Metho di ([place]rencia, 04-[address] with 13:40: 00:00 venous Hospita maltose,) 04 :00 catheter. l 250 mg Monthly injection metoprolol 2020- No 100mg Q.5D Take 1 Met hodi succinate 04-[address] XL 00:00: 04:59 (100 mg Hospita (TOPROL-XL) 00 :00 total) by l 100 mg 24 mouth 2 hr tablet (two) times a day for 30 days. metoprolol 2020- No 100mg Q.5D Take 1 Met hodi succinate 04-[address] XL 00:00: 04:59 (100 mg [...] Ba ylor hydrochloro 3-02 Tablet by Col lege thiazide 20:15: mouth. of (AVALIDE) 29 Medicin 300-12.5 MG e per tablet Liraglutide Yes Inject [facility] (VICTOZA) 3-02 into the [facility] e 18 MG/3ML 20:15: skin of SOPN 29 daily. Medicin e Metoprolol Yes Take by Yalobusha radha Succinate 3-02 mouth. College 100 MG [...] 500 [facility] chloride 3-02 mg into [place] 0.9 % SOLN 20:15: the vein of 100 mL with 29 once. Medicin abatacept e 250 MG SOLR 500 mg VITAMIN D Yes Take by [facility] OR 3-02 mouth. [place] 20:15: of 29 Medicin e insulin Yes [...] 500 [facility] chloride 2-04 mg into [place] 0.9 % SOLN 18:20: the vein of 100 mL with 51 once. Medicin abatacept e 250 MG SOLR 500 mg VITAMIN D Yes Take by [facility] OR 2-04 mouth. [place] 18:20: of 51 Medicin e Liraglutide Yes Inject [facility] (VICTOZA) 2-04 into the [facility] e 18 MG/3ML 18:19: skin of SOPN 03 daily. Medicin e Metoprolol Yes Take by Yalobusha radha Succinate 2-04 mouth. [place] 100 MG CS24 18:19: of 03 Medicin e benazepril 2020-0 2020- No 20mg Take 20 mg [facility] (LOTENSIN) 2-04 02-04 by mouth. Col lege 20 MG 18:17: 00:00 of tablet 24 :00 Medicin e ELIQUIS 5 0 Yes Román MG TABS 10-11 College 00:00: of 00 Medicin e ELIQUIS 5 0 Yes [facility] MG TABS 10-11 College 00:00: of 00 Medicin e bumetanide Yes Román (BUMEX) 0.5 1-26 College MG tablet 00:00: of 00 Medicin e JARDIANCE Yes [facility] 25 MG TABS 10-04 College 00:00: of 00 Medicin e Tamsulosin Yes Román HCl 0.4 MG 10-04 [place] CAPS 00:00: of 00 Medicin e bumetanide Yes Román (BUMEX) 0.5 1-26 College MG tablet 00:00: of 00 Medicin e JARDIANCE Yes Román 25 MG TABS 10-04 [place] 00:00: of 00 Medicin e Tamsulosin Yes [facility] HCl 0.4 MG 10-04 [place] CAPS 00:00: of 00 Medicin e Ranolazine 2019-09 Yes Román 500 MG TB12 10-11 [place] 00:00: of 00 Medicin e lansoprazol 2019-09 Yes [facility] 10-11 [place] (PREVACID) 00:00: of 30 MG 00 Medicin capsule e Ranolazine 2019-09 Yes [facility] 500 MG TB12 10-11 [place] 00:00: of 00 Medicin e lansoprazol 2019- Yes [facility] 10-11 [place] (PREVACID) 00:00: of 30 MG 00 Medicin capsule e nitroglycer Yes acute .4mg Place 0.[address] [facility] [facility] in 9-24 episode of mg under [facility] (NITROSTAT) 12:33: anginal the tongue Medical 0.4 [...] St 0.6 mg/0.1 9-24 diabetes mg [facility] mL (18 mg/3 12:33: mellitus subcutaneo Medical mL) PnIj 42 usly daily Kim Zambrano rosuvastati 0 Yes atheroscler 20mg QD Take [address] n (CRESTOR) 9-24 otic by mouth Luke s 40 MG 12:33: cardiovascu daily . Me dical tablet 42 lar disease Center metFORMIN 2019-0 Yes type 2 1000mg Q.5D Take 1,[address] (GLUCOPHAGE 06-02 diabetes mg by Elvira es -XR) 500 MG 12:33: mellitus mouth 2 Medical 24 hr 42 (two) Center tablet times daily. lansoprazol Yes gastroesoph 30mg QD Take [address] [facility] e 9- ageal by mouth [facility] (PREVACID) 12:33: reflux nightly. M edical 30 MG 42 disease Center capsule insulin Yes type 2 100U QD Inject [address] glargine 06-02 diabetes Units [facility] (LANTUS) 12:33: mellitus subcutaneo Medical 100 unit/mL 42 usly every Ce nter injection morning Use as directed . benazepriL Yes hypertensio 20mg QD Take [address] (LOTENSIN) 9 n by mouth [facility] 20 MG 12:33: daily. Medical tablet 42 Center empaglifloz Yes 25mg QD Take [address] in 06-02 by mouth [facility] (JARDIANCE) 12:33: daily. Medi radha 25 mg 42 Center tablet abatacept 0 Yes Q28D Inject [facility] (ORENCIA) 9- intravenou Luke s infusion 12:33: sly every Medi radha 42 28 days. Center nitroglycer Yes acute .4mg Place 0.[address] in 924 episode of mg under [facility] (NITROSTAT) 12:33: anginal the tongue Medical 0.4 MG SL 42 pain every 5 Center tablet (five) minutes as needed for Chest pain Put 1 pill under tongue every 5min as needed for chest pain.No more than 3 doses in 15min.Call 911 if pain is unrelieved 5min after 1st dose . liraglutide 2019-0 Yes type 2 1.8mg QD Inject 1.[address] 0.6 mg/0.1 9-24 diabetes mg [facility] mL (18 mg/3 12:33: mellitus subcutaneo Medical mL) PnIj 42 usly daily Kim Zambrano rosuvastati 0 Yes atheroscler 20mg QD Take [address] n (CRESTOR) 9-24 otic by mouth Luke s 40 MG 12:33: cardiovascu daily . Me dical tablet 42 lar disease Center metFORMIN 2019-0 Yes type 2 1000mg Q.5D Take 1,[address] (GLUCOPHAGE 9-24 diabetes mg by Elvira es -XR) 500 MG 12:33: mellitus mouth 2 Medical 24 hr 42 (two) Center tablet times daily. lansoprazol 0 Yes gastroesoph 30mg QD Take [address] [facility] e 9-24 ageal by mouth [facility] (PREVACID) 12:33: reflux nightly. M edical 30 MG 42 disease Center capsule insulin 0 Yes type 2 100U QD Inject [address] glargine 06-02 diabetes Units [facility] (LANTUS) 12:33: mellitus subcutaneo Medical 100 unit/mL 42 usly every Ce nter injection morning Use as directed . benazepriL 0 Yes hypertensio 20mg QD Take [address] (LOTENSIN) 9-24 n by mouth [facility] 20 MG 12:33: daily. Medical tablet 42 [place] empaglifloz 0 Yes 25mg QD Take [address] in 06-02 by mouth [facility] (JARDIANCE) 12:33: daily. Medi radha 25 mg 42 Center tablet abatacept 0 Yes Q28D Inject [facility] (ORENCIA) 9-24 intravenou Luke s infusion 12:33: sly every Medi radha 42 28 days. [place] tamsulosin 2019-0 Yes .4mg QD Take 0.[address] (FLOMAX) 9-13 mg by [facility] 0.4 mg Cap 00:00: mouth Medica l 24 hr 00 daily. [place] capsule tamsulosin 2019-0 Yes .4mg QD Take 0.[address] (FLOMAX) 9-13 mg by [facility] 0.4 mg Cap 00:00: mouth Medica l 24 hr 00 daily. [place] capsule metoprolol 2019-0 2020- No 50mg Q.5D Take [address] tartrate 6-17 06-17 tablet (50 Luke s (LOPRESSOR) 00:00: 23:59 mg total) Medical 50 MG 00 :00 by mouth 2 Center tablet (two) times daily. metoprolol No 50mg Q.5D Take [address] tartrate 6-17 06-17 tablet (50 Luke s (LOPRESSOR) 00:00: 23:59 mg total) Medical 50 MG 00 :00 by mouth 2 Center tablet (two) times daily. clopidogreL No 75mg QD Take [address] (PLAVIX) 75 4-10 04-10 tablet (75 L ukes mg tablet 00:00: 23:59 mg total) Me dical 00 :00 by mouth Center daily. clopidogreL No 75mg QD Take [address] (PLAVIX) 75 4-10 04-10 tablet (75 L ukes mg tablet 00:00: 23:59 mg total) Me dical 00 :00 by mouth Center daily. clopidogrel No 75mg Take 75 mg [facility] (PLAVIX) 75 4-10 02-04 by mouth. Co llege MG Tablet 00:00: 00:00 of 00 :00 Medicin e ranolazine 2020- No 500mg Q.5D Take [address] (RANEXA) 12-16-09 tablet [facility] 500 MG 12 00:00: 23:59 (500 mg Medi radha hr tablet 00 :00 total) by Cente r mouth 2 (two) times daily. ranolazine 2020- No 500mg Q.5D Take [address] (RANEXA) 12-16 04-09 tablet [facility] 500 MG 12 00:00: 23:59 (500 mg Medi radha hr tablet 00 :00 total) by Cente r mouth 2 (two) times daily. Immunizations Ordered Immunization Filled Immunization Date Status Commen ts Source Name Name PFIZER COVID-19 MRNA 2020-12-14 Completed Meth odist VACCINATION 00:00:00 [facility] PFIZER COVID-19 MRNA 2020-12-14 Completed Meth odist VACCINATION 00:00:00 [facility] PFIZER COVID-19 MRNA 2020-11-23 Completed Meth odist VACCINATION 00:00:00 [facility] PFIZER COVID-19 MRNA 2020-11-23 Completed Meth odist VACCINATION 00:00:00 Hospital Vital Signs Vital Name Observation Time Observation Value Comments Source HEIGHT 2020-02-03 00:00:00 182.9 cm WEIGHT 2020-02-03 00:00:00 95.255 kg Systolic blood 2020-11-08 20:15:00 161 mm[Hg] [facility] pressure Medicine Diastolic blood 2020-11-08 20:15:00 84 mm[Hg] [facility] pressure Medicine Heart rate 2020-11-08 20:15:00 99 /min [facility] of Medicine Body height 2020-11-08 20:15:00 177.8 cm [facility] Medicine Body weight 2020-11-08 20:15:00 79.833 kg [facility] BMI 2020-11-08 20:15:00 25.25 kg/m2 [facility] of Medicine Systolic blood 2020-10-13 17:37:00 131 mm[Hg] [facility] pressure Medicine Diastolic blood 2020-10-13 17:37:00 75 mm[Hg] [facility] Medicine Heart rate 2020-10-13 17:37:00 72 /min [facility] of Medicine Body height 2020-10-13 17:37:00 177.8 cm [facility] of Medicine Body weight 2020-10-13 17:37:00 79.833 kg [facility] of Medicine BMI 2020-10-13 17:37:00 25.25 kg/m2 [facility] C [facility] of Medicine WEIGHT 2020-06-02 00:00:00 91.627 kg WEIGHT 2020-04-06 00:00:00 91.627 kg HEIGHT 2020-03-08 00:00:00 180 cm HEIGHT 2020-02-21 00:00:00 180 cm WEIGHT 2020-02-21 00:00:00 94.983 kg HEIGHT 2020-02-21 00:00:00 180 cm WEIGHT 2020-02-21 00:00:00 94.983 kg Body temperature 2021-04-14 17:27:[address] [facility] Respiratory rate 2021-04-14 17:27:20 18 /min [facility] Oxygen saturation in 2021-04-14 17:27:20 93 /min [facility] Arterial blood by Pulse oximetry Systolic blood 2021-04-14 17:27:20 132 mm[Hg] [facility] pressure Diastolic blood 2021-04-14 17:27:20 66 mm[Hg] [facility] pressure Heart rate 2021-04-14 17:27:20 83 /min [facility] Body height 2021-04-12 11:47:00 180.3 cm [facility] Body weight 2021-04-12 11:47:00 84.823 kg [facility] BMI 2021-04-12 11:47:00 26.08 kg/m2 [facility] Procedures Procedure Date / Time Performing Clinician Source Performed POC GLUCOSE 2021-04-14 12:28:00 Jer Stevens ospital BASIC METABOLIC PANEL 2021-04-14 11:04:00 Michael Joseph [facility] ESTIMATED GFR 2021-04-14 11:04:00 Michael Joseph [facility] HC COMPLETE BLD COUNT 2021-04-14 08:20:00 Jer Stevens [facility] W/AUTO DIFF BASIC METABOLIC PANEL 2021-04-14 08:20:00 Jer Stevens [facility] MAGNESIUM LEVEL 2021-04-14 08:20:00 [facility] 2021-04-14 08:20:00 Jer Stevens ospital POC GLUCOSE 2021-04-13 22:15:00 Jer Stevens ospital BASIC METABOLIC PANEL 2021-04-13 20:54:00 [facility] Patrese MAGNESIUM LEVEL 2021-04-13 20:54:00 [facility] Patrese THYROID STIMULATING 2021-04-13 20:54:00 [facility] HORMONE Patrese T4, FREE 2021-04-13 20:54:00 [facility] Patrese ESTIMATED GFR 2021-04-13 20:54:00 [facility] Patrese ECG 12-LEAD 2021-04-13 19:21:14 O'Goddard, [facility] POC GLUCOSE 2021-04-13 17:32:00 Jer Stevens H ospital HC COMPLETE BLD COUNT 2021-04-13 08:54:00 Jer Stevens [facility] W/AUTO DIFF BASIC METABOLIC PANEL 2021-04-13 08:54:00 Jer Stevens [facility] B NATRIURETIC PEPTIDE 2021-04-13 08:54:00 Opal [facility] MAGNESIUM LEVEL 2021-04-13 08:54:00 [facility] ESTIMATED GFR 2021-04-13 08:54:00 [facility]SE 2021-04-12 22:58:00 Jer Stevens H ospital XR PELVIS 1 OR 2 VW 2021-04-12 15:14:52 Jer Stevens [facility] POC GLUCOSE 2021-04-12 15:06:00 Jer Stevens ospital OR [place] > 1 HOUR 2021-04-12 14:51:00 Jer Stevens H ospital XR PELVIS 1 OR 2 VW 2021-04-12 14:30:00 Jer Stevens [facility] WI AN ELECTIVE 2021-04-12 13:09:00 Julito Espino spital ENDOTRACHEAL AIRWAY ARTHROPLASTY, HIP, TOTAL, 2021-04-12 13:00:00 Jer Stevens [facility] ANTERIOR APPROACH ABO AND RH CONFIRMATION 2021-04-12 11:40:00 Jer Stevens [facility] POC GLUCOSE 2021-04-12 10:55:00 Jer Stevens H ospital COVID-19 QUALITATIVE 2021-04-11 13:16:[address] [facility] RT-PCR URINE CULTURE 2021-04-05 21:20:00 Jer Stevens H ospital HC COMPLETE BLD COUNT 2021-04-05 20:01:00 Jer Stevens [facility] W/AUTO DIFF COMPREHENSIVE METABOLIC 2021-04-05 20:01:00 Jer Stevens [facility] PANEL PROTHROMBIN TIME WITH INR 2021-04-05 20:01:00 Jer Stevens [facility] PARTIAL THROMBOPLASTIN 2021-04-05 20:01:[address] [facility] TIME (PTT) URINALYSIS SCREEN AND 2021-04-05 20:01:00 Jer Stevens [facility] MICROSCOPY, WITH REFLEX TO CULTURE TYPE AND SCREEN 2021-04-05 20:01:00 Jer Stevens ospital HEMOGLOBIN A1C 2021-04-05 20:01:00 [facility] 2021-04-05 20:01:00 Jer Stevens ospital ECG PRE/POST OP 2021-04-05 19:57:27 [facility] [id number] 2020-09-07 00:00:00 WHEED [facility] [id number] 2020-09-07 00:00:00 WHEED [facility] [id number] 2020-09-07 00:00:00 WHEED [facility] [id number] 2020-09-01 00:00:00 SINSI [facility] [id number] 2020-08-30 [id number] 2020-08-30 00:00:00 [facility] Plan of Care Planned Activity Planned Date Details Comments Source Future Scheduled 2021-09-13 Hepatitis C [facility] Test 11:21:21 screening Hospital (procedure) [code = 041463136] Future Scheduled 2021-09-13 SHINGLES VACCINES Method ist Test 11:21:21 (#1) [code = Hospital SHINGLES VACCINES (#1)] Future Scheduled 2021-09-13 INFLUENZA VACCINE Method ist Test 11:21:21 [code = INFLUENZA Hospital VACCINE] Future Scheduled 2021-09-13 COVID-19 VACCINE (3 Meth odist Test 11:21:21 - Booster for Hospital Pfizer series) [code = COVID-19 VACCINE (3 - Booster for Pfizer series)] Future Scheduled 2021-09-13 Hepatitis C [facility] Test 11:21:21 screening Hospital (procedure) [code = 806679274] Future Scheduled 2021-09-13 SHINGLES VACCINES Method ist [...] Scheduled 2021-09-[address] [facility] Test 00:00:00 SCREENING (12+) Medical Cent er [code = DEPRESSION SCREENING (12+)] Future Scheduled 2021-09-[address] Test 00:00:00 SCREENING [code = Medical Ce nter FALLS RISK SCREENING] Future Scheduled 2021-09-[address] [facility] Test 00:00:00 SCREENING (12+) Medical Cent er [code = DEPRESSION SCREENING (12+)] Future Scheduled 2021-09-[address] Test 00:00:00 SCREENING [code = Medical Ce nter FALLS RISK SCREENING] Future Scheduled 2021-05-[address] [facility] Test 00:00:00 (#1) [code = [facility] INFLUENZA VACCINE (#1)] Future Scheduled 2021-05-[address] [facility] Test 00:00:00 (#1) [code = Medical Center INFLUENZA VACCINE (#1)] Future Scheduled 2010-07-[address] [facility] Test 00:00:00 WELLNESS (YEAR 2 or Medical Center FIRST YEAR if no IPPE) [code = MEDICARE ANNUAL WELLNESS (YEAR 2 or FIRST YEAR if no IPPE)] Future Scheduled 2010-07-[address] [facility] Test 00:00:00 WELLNESS (YEAR 2 or Medical Center FIRST YEAR if no IPPE) [code = MEDICARE ANNUAL WELLNESS (YEAR 2 or FIRST YEAR if no IPPE)] Future Scheduled [address] [facility] Test 00:00:00 (1 of 2) [code = Medical [place] [facility] SHINGLES VACCINES (1 of 2)] Future Scheduled [address] [facility] Test 00:00:00 (1 of 2) [code = Medical [place] [facility] SHINGLES VACCINES (1 of 2)] Future Scheduled 1963 DTAP/TDAP/TD [facility] Test 00:00:00 VACCINES (1 - Tdap) Medical Center [code = DTAP/TDAP/TD VACCINES (1 - Tdap)] Future Scheduled 1963 DTAP/TDAP/TD [facility] Test 00:00:00 VACCINES (1 - Tdap) Medical Center [code = DTAP/TDAP/TD VACCINES (1 - Tdap)] Future Scheduled [address] [facility] Test 00:00:00 SCREENING [code = Medical Ce nter HEPATITIS C SCREENING] Future Scheduled [address] [facility] Test 00:00:00 SCREENING [code = Medical Ce nter HEPATITIS C SCREENING] Future Scheduled 1956 COVID-[address] [facility] Test 00:00:00 (1) [code = [facility] COVID-19 VACCINE (1)] Future Scheduled 1956 COVID-[address] [facility] Test 00:00:00 (1) [code = [facility] COVID-19 VACCINE (1)] Future Scheduled MEDICARE AWV [facility] ege of Test (Initial) [code = Medicine MEDICARE AWV (Initial)] Future Scheduled FALL SCREEN [code = [facility] Test FALL SCREEN] Medicine Future Scheduled PNEUMOVAX >=65 [facility] Co llege of Test (PPSV23) [code = Medicine PNEUMOVAX >=65 (PPSV23)] Future Scheduled FLU VACCINE > 6 [facility] ollege of Test MONTHS [code = FLU Medicine VACCINE > 6 MONTHS] Future Scheduled [place] DEBRIDEMENT OF Ordered: [facility] NAILS, 6 OR MORE 11/19/2020 Medicine [code = 37665] Future Scheduled TETANUS SHOT [facility] Callie ege of Test (ADULT) [code = Medicine TETANUS SHOT (ADULT)] Future Scheduled COVID-19 Vaccine [facility] Test (1) [code = Medicine COVID-19 Vaccine (1)] Future Scheduled BMI FOLLOW UP PLAN [facility] of Test [code = BMI FOLLOW Medicine UP PLAN] Future Scheduled Hepatitis C [facility] Callie [facility]ge of Test screening Medicine (procedure) [code = 191411904] Future Scheduled ZOSTER VACCINE (1 [facility] of Test of 2) [code = Medicine ZOSTER VACCINE (1 of 2)] Future Scheduled MEDICARE AWV [facility] of Test (Initial) [code = Medicine MEDICARE AWV (Initial)] Future Scheduled FALL SCREEN [code = [facility] of Test FALL SCREEN] Medicine Future Scheduled PNEUMOVAX >=65 [facility] Co llege of Test (PPSV23) [code = Medicine PNEUMOVAX >=65 (PPSV23)] Future Scheduled FLU VACCINE > 6 [facility] C ollege of Test MONTHS [code = FLU Medicine VACCINE > 6 MONTHS] Future Scheduled COVID-19 Vaccine [facility] of Test Evaluation [code = Medicine COVID-19 Vaccine Evaluation] Future Scheduled TETANUS SHOT [facility] of Test (ADULT) [code = Medicine TETANUS SHOT (ADULT)] Future Scheduled BMI FOLLOW UP PLAN [facility] of Test [code = BMI FOLLOW Medicine UP PLAN] Future Scheduled HEPATITIS C [facility] of Test SCREENING [code = Medicine HEPATITIS C SCREENING] Future Scheduled ZOSTER VACCINE (1 [facility] of Test of 2) [code = Medicine ZOSTER VACCINE (1 of 2)] Encounters Start End Encounter Admission Attending Care Care Encounter Source Date/Time Date/Time Type Type Clinicians Facility Department ID 2021-10-04 Outpatient [facility] [id number] Common 11:49:32 [id number] [facility] 2021-06-13 Outpatient [facility] Surgery [id number] [facility] 15:13:05 [facility] 2020-09-21 Inpatient Hernandez, HCAMN HCAMN [id number] [facility] 13:25:00 Daryn [id number] [facility] 2020-09-06 Inpatient EL Mary, HCAMN REHA [id number] [facility] 13:25:00 Daryn [id number] [facility] 2020-08-30 Inpatient HCAMN RAKESH [id number] [facility] 19:48:00 [id number] [facility] 2019-12-15 Inpatient [facility] [id number] SLE 15:39:17 [id number] 2021-09-12 2021-09-12 Outpatient GC_TEG_Gupt PRIV PRIV [id number] [facility] 03:16:00 03:16:00 a_A [id number] Medica l 2021-09-12 2021-09-12 Outpatient GC_TEG_Gupt PRIV PRIV 210 [id number] [facility] 03:16:00 03:16:00 a_A [id number] Medica l 2021-09-12 2021-09-12 Outpatient Adrien, PRIV PRIV [id number] 00:00:00 00:00:00 Katina [id number]-11ec-8 [id number] 2021-04-12 2021-04-14 Hospital [facility], 1.2.840.1 [id number] Methodi 05:44:00 13:39:00 Encounter Jer NKenya 01824.1.1 333 s t 3.430.2.7 Hospit a .3.362602 l .8 2021-04-12 2021-04-12 Surgery [facility], 1.2.840.1 [id number] Methodi 08:00:00 10:40:[address] [place] [address]198.1.[address] 3.430.2.7 Hospit a .3.383791 l .8 2021-04-12 2021-04-12 Anesthesia Srinivas, Julito 1.2.840.1 [id number] Methodi 08:00:00 10:09:00 Event [facility] [address]661.1.[address] 3.430.2.7 Hospit a .3.557823 l .8 2021-04-11 2021-04-11 Lab [facility], 1.2.840.1 [id number] Methodi 08:06:36 08:21:[address] 3.430.2.7 Hospit a .3.047259 l .8 2021-04-11 2021-04-11 Travel 1.2.840.1 1.2.974.270 0662 [id number] Methodi 00:00:00 00:00:[address] 3.430.2.7 0.2.7.3.698 Ho spita .3.168289 084.8 l .8 2021-04-05 2021-04-05 Pre-Admiss Hilda, 1.2.840.1 [id number] Methodi 13:30:00 14:30:00 ion [place] N. 23126.1.[address] Testing 3.430.2.7 Hospit a .3.116599 l .8 2021-04-05 2021-04-05 Travel 1.2.840.1 1.2.683.283 [id number] Methodi 00:00:00 00:00:[address] 3.430.2.7 0.2.7.3.698 Ho spita .3.238618 084.8 l .8 2021-02-23 2021-02-23 Documentat Provider, 1.2.840.1 [id number] Methodi 00:00:00 00:00:00 ion Unknown 38002.1.[address] 3.430.2.7 Hospit a .3.290088 l .8 2020-11-08 2020-11-08 Office JUDI Gordon 1.2.840.114 [id number] [facility] 13:46:36 14:16:36 Visit Christiano Stevens AMBULATOR 350.1.13.21 College Y 0.2.7.2.686 of [id number] [facility] 825 e 2020-10-13 2020-10-13 Office JUDI Gruber 1.2.840.114 [id number] [facility] 10:58:31 15:07:02 Visit Ernesto AMBULATOR 350.1.13.21 College Ritesh Y 0.2.7.2.686 of [id number] [facility] 825 e 2020-08-31 2020-08-31 Outpatient Vallabhalitas [facility] [id number] [facility] 00:09:00 00:09:00 lesly [id number] [facility] 2020-08-10 2020-08-10 Outpatient EL [facility] [id number] SLE 00:00:00 00:00:00 2020-07-05 2020-07-05 Outpatient STLMLC [facility] [id number] Common 00:00:00 00:00:00 [facility] 2020-06-06 2020-06-06 Outpatient STLMLC STLMLC [id number] Common 00:00:00 00:00:00 [facility] 2020-06-02 2020-06-02 Outpatient [facility] [id number] SLE 00:00:00 00:00:00 RAZA 2020-04-20 2020-04-20 Outpatient [facility] [id number] SLE 00:00:00 00:00:00 RAZA 2020-04-06 2020-04-06 Outpatient [facility] [id number] SLE 00:00:00 00:00:00 RAZA 2020-03-08 2020-03-08 Outpatient [facility] [id number] SLE 00:00:00 00:00:00 RAZA 2020-02-21 2020-02-21 Emergency ER [facility] Emergency [id number] SLE 16:41:00 16:41:00 2020-02-18 2020-02-18 Outpatient YOLY [facility] [id number] SLE 00:00:00 00:00:00 Results Test Description Test Time Test Comments Results Result Comments Source POC glucose 2021-04-14 12:29:21 Test Item Value Reference Range Interpretation Comme nts POC glucose (test code = 198 mg/dL 65-99 H Ope rator Name: Jh Paramjit [id number]) ID: [id number] hartable: [facility] 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 service 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 Interpretation (test code = Abnormal 14301-4) [facility] [id number] 12:29:21 Test Item Value Reference Range Interpretation Comments POC glucose (test code 198 mg/dL 65-99 H Opera tor Name: Jh = [id number]) Paramjit I D: [id number] able: [facility] 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 service inspector Interpretation Abnormal (test code = 20512-1) [place] [address] [id number] 00:10:08 Test Item Value Reference Range Interpretation Comments Ventricular rate (test code = 253) Atrial rate (test code = 255) WI interval (test code = 266) QRSD interval [...] 05-APR-2021 14:57,-premature atrial complexes are now present- [address]2021-08-06 00:10:08 Test Item Value Reference Range Interpretation Comments Ventricular rate (test code = 253) Atrial rate (test code = 255) WI interval (test code = 266) QRSD interval [...] 05-APR-2021 14:57,-premature atrial complexes are now present- [facility] and [id number] 12:53:00 Test Item Value Reference Range Interpretation Comments ABO grouping (test code = 883-9) O Rh type (test code = 74958-6) POS [facility] and [id number] 12:53:00 Test Item Value Reference Range Interpretation Comments ABO grouping (test code = 883-9) O Rh type (test code = 25196-3) [facility] [id number] 17:13:58 Test Item Value Reference Range Interpretation Comments Interpretation (test Negative results do code = 4072992) not preclude 2019-nCoV infection and should not be used as the sole basis for treatment or other patient management decisions. Negative results must be combined with clinical observations, patient history, and epidemiological information. COVID-19 qualitative Not-Detected Not-Detected RT-PCR result (test code = 94436-7) COVID-19 qualitative See link below for C ase Number: RT-PCR (test code = PDF Lab Report [id number]) [facility] [id number] 17:13:58 Test Item Value Reference Range Interpretation Comments Interpretation (test Negative results do code = 2134900) not preclude 2019-nCoV infection and should not be used as the sole basis for treatment or other patient management decisions. Negative results must be combined with clinical observations, patient history, and epidemiological information. COVID-19 qualitative Not-Detected Not-Detected RT-PCR result (test code = 83337-4) COVID-19 qualitative See link below for C ase Number: RT-PCR (test code = PDF Lab Report [id number]) [facility] [Presence] in Respiratory specimen by MICHI with probe [id number] 12:13:10 Test Item Value Reference Range Interpretation Comments SARS-CoV-2 (COVID-19) RNA Not detected Not-Detected [Presence] in Respiratory specimen by MICHI with probe detection (test code = 36454-5) Whether patient is employed in a healthcare setting (test code = 94439-8) Whether the patient has symptoms related to condition of interest (test code = 65680-2) Patient was hospitalized because of this condition (test code = 56849-8) Whether the patient was admitted to intensive care unit (ICU) for condition of interest (test code = 24398-1) Whether patient resides in a congregate care setting (test code = 86307-1) ECG Pre/Post [id number] 18:34:55 Test Item Value Reference Range Interpretation Comments Ventricular rate (test code = 253) Atrial rate (test code = 255) WI interval (test code = 266) QRSD interval (test code = 260) QT interval (test code = 264) QTC interval (test code = 265) P axis 1 (test code = 267) QRS axis 1 (test code = 268) T wave axis (test code = 270) EKG impression (test Normal sinus code = 273) rhythm-Normal ECG-No significant change was found when compared to prior ECG- [facility] [id number] 18:34:55 Test Item Value Reference Range Interpretation Comments Ventricular rate (test code = 253) Atrial rate (test code = 255) WI interval (test code = 266) QRSD interval (test code = 260) QT interval (test code = 264) QTC interval (test code = 265) P axis 1 (test code = 267) QRS axis 1 (test code = 268) T wave axis (test code = 270) EKG impression (test Normal sinus code = 273) rhythm-Normal ECG-No significant change was found when compared to prior ECG- [facility] [id number] 22:39:00 Test Item Value Reference Range Interpretation Comments ABO grouping (test code = 883-9) O Rh type (test code = 86243-4) POS Antibody screen (gel) (test code = NEG 890-4) [facility] [id number] 22:39:00 Test Item Value Reference Range Interpretation Comments ABO grouping (test code = 883-9) O Rh type (test code = 53098-6) POS Antibody screen (gel) (test code = NEG 890-4) [facility] jbejemn8676-49-04 22:22:53 Test Item Value Reference Range Interpretation Comments Urine culture (test SEE COMMENT Bacteriu noah screen code = 2015885) negative. [facility] [id number] 22:22:53 Test Item Value Reference Range Interpretation Comments Urine culture (test SEE COMMENT Bacteriu noah screen code = 9270181) negative. [id number] 17:05:00 Test Item Value Reference Range Interpretation Comments GLUBED (test code = GLUBED) 204 mg/dL 70-110 H [id number] 07:54:00 Test Item Value Reference Range Interpretation Comments GLUBED (test code = GLUBED) 142 mg/dL 70-110 H [id number] 21:15:00 Test Item Value Reference Range Interpretation Comments GLUBED (test code = GLUBED) 215 mg/dL 70-110 H [id number] 16:48:00 Test Item Value Reference Range Interpretation Comments GLUBED (test code = GLUBED) 191 mg/dL 70-110 H [id number] 14:28:00 Test Item Value Reference Range Interpretation Comments GLUBED (test code = GLUBED) 154 mg/dL 70-110 H [id number] 11:42:00 Test Item Value Reference Range Interpretation Comments GLUBED (test code = GLUBED) 180 mg/dL 70-110 H CBC W/AUTO [id number] 10:45:00 Test Item Value Reference Range Interpretation [...] 0.00 X10 3uL 0.00-0.01 N NRBC#) LINE [id number] 07:17:00 Test Item Value Reference Range Interpretation Comments GLUBED (test code = GLUBED) 149 mg/dL 70-110 H [id number] 16:29:00 Test Item Value Reference Range Interpretation Comments GLUBED (test code = GLUBED) 202 mg/dL 70-110 H [id number] 11:50:00 Test Item Value Reference Range Interpretation Comments GLUBED (test code = GLUBED) 197 mg/dL 70-110 H [id number] 07:00:00 Test Item Value Reference Range Interpretation Comments GLUBED (test code = GLUBED) 147 mg/dL 70-110 H [id number] 21:04:00 Test Item Value Reference Range Interpretation Comments GLUBED (test code = GLUBED) 235 mg/dL 70-110 H [id number] 20:47:00 Test Item Value Reference Range Interpretation Comments GLUBED (test code = GLUBED) 193 mg/dL 70-110 H [id number] 11:57:00 Test Item Value Reference Range Interpretation Comments GLUBED (test code = GLUBED) 213 mg/dL 70-110 H [id number] 08:47:00 Test Item Value Reference Range Interpretation Comments GLUBED (test code = GLUBED) 156 mg/dL 70-110 H COMPREHENSIVE METABOLIC [id number] 08:15:00 Test Item Value Reference Range Interpretation [...] 50.0-136.0 N code = ALKP) CBC W/AUTO [id number] 07:36:00 Test Item Value Reference Range Interpretation [...] = 0.00 X10 3uL 0.00-0.01 N NRBC#) [id number] 20:21:00 Test Item Value Reference Range Interpretation Comments GLUBED (test code = GLUBED) 264 mg/dL 70-110 H [id number] 15:51:00 Test Item Value Reference Range Interpretation Comments GLUBED (test code = GLUBED) 183 mg/dL 70-110 H [id number] 15:02:00 Test Item Value Reference Range Interpretation Comments GLUBED (test code = GLUBED) 271 mg/dL 70-110 H [id number] 11:46:00 Test Item Value Reference Range Interpretation Comments GLUBED (test code = GLUBED) 218 mg/dL 70-110 H [id number] 07:59:00 Test Item Value Reference Range Interpretation Comments GLUBED (test code = GLUBED) 150 mg/dL 70-110 H [id number] 22:17:00 Test Item Value Reference Range Interpretation Comments GLUBED (test code = GLUBED) 257 mg/dL 70-110 H [id number] 16:49:00 Test Item Value Reference Range Interpretation Comments GLUBED (test code = GLUBED) 234 mg/dL 70-110 H [id number] 11:03:00 Test Item Value Reference Range Interpretation Comments GLUBED (test code = GLUBED) 209 mg/dL 70-110 H [id number] 17:37:00 Test Item Value Reference Range Interpretation Comments GLUBED (test code = GLUBED) 276 mg/dL 70-110 H [id number] 11:56:00 Test Item Value Reference Range Interpretation Comments GLUBED (test code = GLUBED) 210 mg/dL 70-110 H [id number] 08:17:00 Test Item Value Reference Range Interpretation Comments GLUBED (test code = GLUBED) 165 mg/dL 70-110 H [id number] 20:27:00 Test Item Value Reference Range Interpretation Comments GLUBED (test code = GLUBED) 294 mg/dL 70-110 H [id number] 16:43:00 Test Item Value Reference Range Interpretation Comments GLUBED (test code = GLUBED) 244 mg/dL 70-110 H [id number] 11:45:00 Test Item Value Reference Range Interpretation Comments GLUBED (test code = GLUBED) 205 mg/dL 70-110 H [id number] 07:07:00 Test Item Value Reference Range Interpretation Comments GLUBED (test code = GLUBED) 187 mg/dL 70-110 H [id number] 21:16:00 Test Item Value Reference Range Interpretation Comments GLUBED (test code = GLUBED) 239 mg/dL 70-110 H [id number] 16:50:00 Test Item Value Reference Range Interpretation Comments GLUBED (test code = GLUBED) 189 mg/dL 70-110 H [id number] 16:50:00 Test Item Value Reference Range Interpretation Comments GLUBED (test code = GLUBED) 214 mg/dL 70-110 H [id number] 07:22:00 Test Item Value Reference Range Interpretation Comments GLUBED (test code = GLUBED) 212 mg/dL 70-110 H [id number] 21:12:00 Test Item Value Reference Range Interpretation Comments GLUBED (test code = GLUBED) 280 mg/dL 70-110 H [id number] 16:11:00 Test Item Value Reference Range Interpretation Comments GLUBED (test code = GLUBED) 272 mg/dL 70-110 H [id number] 11:09:00 Test Item Value Reference Range Interpretation Comments GLUBED (test code = GLUBED) 261 mg/dL 70-110 H [id number] 07:00:00 Test Item Value Reference Range Interpretation Comments GLUBED (test code = GLUBED) 199 mg/dL 70-110 H BASIC METABOLIC [id number] 06:56:00 Test Item Value Reference Range Interpretation [...] 9.1 mg/dl 8.0-10.5 N LINE DRAWCBC W/AUTO [id number] 06:44:00 Test Item Value Reference Range Interpretation [...] 0.00 X10 3uL 0.00-0.01 N NRBC#) LINE [id number] 03:10:00 Test Item Value Reference Range Interpretation Comments GLUBED (test code = GLUBED) 278 mg/dL 70-110 H [id number] 19:59:00 Test Item Value Reference Range Interpretation Comments GLUBED (test code = GLUBED) 290 mg/dL 70-110 H [id number] 16:29:00 Test Item Value Reference Range Interpretation Comments GLUBED (test code = GLUBED) 232 mg/dL 70-110 H - XR HIP W/PEL UNI 2+V [id number] 14:54:00 [facility] 1945 Sex: M FAX: Daryn Potter [phone] [place]: St: ADM FAX: Eh Escoto MD [phone] Name: GUYALTHEA [facility] : 1945 Age/S: 75/M [address] [employer] [facility] [place] Unit #: [id number] Loc: [address] Phys: [place] [id number] Acct: [id number] Dis Date: Status: ADM IN PHONE #: [phone] Exam Date: 09/12/2020 1351 FAX #: [phone] Reason: HIP PAIN EXAMS: CPT CODE: [id number] XR HIP W/PEL UNI 2+[place] [address] B2 EXAM: - XR HIP W/PEL UNI 2+V RT HISTORY: HIP PAIN COMPARISON: None FINDINGS: No acute fracture or dislocation. Severe acetabular joint space narrowing with subchondral sclerosis and osteophyte formation. No aggressive osseous lesions. Moderate vascular calcifications. 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 at 2098 Reported and signed by: Jonathan Hyde M.D. CC: Daryn Hernandez MD; Eh Saldana MD Technologist: RANDALL PATRICIA Trngard Date/Time/By: 09/12/2020 (1200) : By: [email or web address] PAGE 1 Signed Report FAX: Daryn Potter [phone] [place]: St: [facility] FAX: Eh Vasques MD [phone] Name: ALTHEA TOVAR JR [facility] : 1945 Age/S: 75/M [address] [employer] [facility] [place] Unit #: [id number] Loc: [address] [place], [place] Phys: [place] [id number] Acct: [id number] Dis Date: Status: ADM IN PHONE #: [phone] Exam Date: 09/12/2020 1351 FAX #: [phone] Reason: HIP PAIN EXAMS: CPT CODE: [id number] XR HIP W/PEL UNI 2+[place] [address] <Continued> Orig Print D/T: S: 09/12/2020 (6270) PAGE 2 Signed [id number] 10:21:00 Test Item Value Reference Range Interpretation Comments GLUBED (test code = GLUBED) 248 mg/dL 70-110 H BASIC METABOLIC [id number] 09:22:00 Test Item Value Reference Range Interpretation [...] code = CA) 9.2 mg/dl 8.0-10.5 N [id number] 07:24:00 Test Item Value Reference Range Interpretation Comments GLUBED (test code = GLUBED) 187 mg/dL 70-110 H [id number] 16:22:00 Test Item Value Reference Range Interpretation Comments GLUBED (test code = GLUBED) 224 mg/dL 70-110 H [id number] 14:55:00 Test Item Value Reference Range Interpretation Comments GLUBED (test code = GLUBED) 284 mg/dL 70-110 H [id number] 14:52:00 Test Item Value Reference Range Interpretation Comments GLUBED (test code = GLUBED) 201 mg/dL 70-110 H [id number] 12:08:00 Test Item Value Reference Range Interpretation Comments GLUBED (test code = GLUBED) 214 mg/dL 70-110 H [id number] 06:53:00 Test Item Value Reference Range Interpretation Comments GLUBED (test code = GLUBED) 166 mg/dL 70-110 H [id number] 20:16:00 Test Item Value Reference Range Interpretation Comments GLUBED (test code = GLUBED) 274 mg/dL 70-110 H [id number] 12:00:00 Test Item Value Reference Range Interpretation Comments GLUBED (test code = GLUBED) 190 mg/dL 70-110 H [id number] 07:37:00 Test Item Value Reference Range Interpretation Comments GLUBED (test code = GLUBED) 183 mg/dL 70-110 H [id number] 16:55:00 Test Item Value Reference Range Interpretation Comments GLUBED (test code = GLUBED) 231 mg/dL 70-110 H [id number] 12:04:00 Test Item Value Reference Range Interpretation Comments GLUBED (test code = GLUBED) 168 mg/dL 70-110 H [id number] 08:23:00 Test Item Value Reference Range Interpretation Comments GLUBED (test code = GLUBED) 163 mg/dL 70-110 H [id number] 20:03:00 Test Item Value Reference Range Interpretation Comments GLUBED (test code = GLUBED) 222 mg/dL 70-110 H [id number] 16:42:00 Test Item Value Reference Range Interpretation Comments GLUBED (test code = GLUBED) 168 mg/dL 70-110 H [id number] 10:37:00 Test Item Value Reference Range Interpretation Comments GLUBED (test code = GLUBED) 199 mg/dL 70-110 H [id number] 07:16:00 Test Item Value Reference Range Interpretation Comments GLUBED (test code = GLUBED) 159 mg/dL 70-110 H [id number] 20:13:00 Test Item Value Reference Range Interpretation Comments GLUBED (test code = GLUBED) 225 mg/dL 70-110 H [id number] 16:33:00 Test Item Value Reference Range Interpretation Comments GLUBED (test code = GLUBED) 213 mg/dL 70-110 H [id number] 10:34:00 Test Item Value Reference Range Interpretation Comments GLUBED (test code = GLUBED) 180 mg/dL 70-110 H COMPREHENSIVE METABOLIC [id number] 08:07:00 Test Item Value Reference Range Interpretation [...] 50.0-136.0 N code = ALKP) Specimen comments: .[id number] 08:07:00 Test Item Value Reference Range Interpretation Comments MAGNESIUM (test code = MAG) 1.9 mg/dl 1.8-2.4 N Specimen comments: .CBC W/AUTO [id number] 07:51:00 Test Item Value Reference Range Interpretation [...] = 0.00 X10 3uL 0.00-0.01 N NRBC#) [id number] 07:08:00 Test Item Value Reference Range Interpretation Comments GLUBED (test code = GLUBED) 125 mg/dL 70-110 H [id number] 04:04:00 Test Item Value Reference Range Interpretation Comments GLUBED (test code = GLUBED) 138 mg/dL 70-110 H [id number] 04:04:00 Test Item Value Reference Range Interpretation Comments GLUBED (test code = GLUBED) 144 mg/dL 70-110 H URINALYSIS [id number] 22:30:00 Test Item Value Reference Range Interpretation [...] cath if unable to obtain Clean CatchURINALYSIS [id number] 22:14:00 Test Item Value Reference Range Interpretation [...] Straight cath if unable to obtain Clean [id number] 20:18:00 Test Item Value Reference Range Interpretation Comments GLUBED (test code = GLUBED) 132 mg/dL 70-110 H [id number] 10:52:00 Test Item Value Reference Range Interpretation Comments GLUBED (test code = GLUBED) 130 mg/dL 70-110 H [id number] 05:22:00 Test Item Value Reference Range Interpretation Comments GLUBED (test code = GLUBED) 102 mg/dL 70-110 N BASIC METABOLIC [id number] 04:53:00 Test Item Value Reference Range Interpretation [...] = CA) 8.9 mg/dl 8.0-10.5 N LINE [id number] 04:53:00 Test Item Value Reference Range Interpretation Comments MAGNESIUM (test code = MAG) 2.0 mg/dl 1.8-2.4 N LINE DRAWCBC W/AUTO [id number] 04:40:00 Test Item Value Reference Range Interpretation [...] 0.00 X10 3uL 0.00-0.01 N NRBC#) LINE [id number] 01:57:00 Test Item Value Reference Range Interpretation Comments GLUBED (test code = GLUBED) 119 mg/dL 70-110 H [id number] 23:29:00 Test Item Value Reference Range Interpretation Comments GLUBED (test code = GLUBED) 118 mg/dL 70-110 H [id number] 20:02:00 Test Item Value Reference Range Interpretation Comments GLUBED (test code = GLUBED) 129 mg/dL 70-110 H BASIC METABOLIC [id number] 10:20:00 Test Item Value Reference Range Interpretation [...] = CA) 8.8 mg/dl 8.0-10.5 N LINE [id number] 10:20:00 Test Item Value Reference Range Interpretation Comments MAGNESIUM (test code = MAG) 1.6 mg/dl 1.8-2.4 L LINE DRAWCBC W/AUTO [id number] 09:48:00 Test Item Value Reference Range Interpretation [...] 0.03 X10 3uL 0.00-0.01 H NRBC#) LINE [id number] 05:23:00 Test Item Value Reference Range Interpretation Comments GLUBED (test code = GLUBED) 121 mg/dL 70-110 H [id number] 00:40:00 Test Item Value Reference Range Interpretation Comments GLUBED (test code = GLUBED) 129 mg/dL 70-110 H [id number] 21:35:00 Test Item Value Reference Range Interpretation Comments GLUBED (test code = GLUBED) 148 mg/dL 70-110 H VANCOMYCIN [id number] 21:30:00 Test Item Value Reference Range Interpretation [...] DRAW 30-1-60 MIN PRIOR TO DOSEComments to Iron Installer: MAKE SURE BAG IS NOT [id number] 17:19:00 Test Item Value Reference Range Interpretation Comments GLUBED (test code = GLUBED) 154 mg/dL 70-110 H [id number] 15:37:00 Test Item Value Reference Range Interpretation Comments GLUBED (test code = GLUBED) 119 mg/dL 70-110 H [id number] 11:16:00 Test Item Value Reference Range Interpretation Comments GLUBED (test code = GLUBED) 102 mg/dL 70-110 N [id number] 07:06:00 Test Item Value Reference Range Interpretation Comments GLUBED (test code = GLUBED) 97 mg/dL 70-110 N [id number] 05:44:00 Test Item Value Reference Range Interpretation Comments GLUBED (test code = GLUBED) 103 mg/dL 70-110 N BASIC METABOLIC [id number] 07:13:00 Test Item Value Reference Range Interpretation [...] code = CA) 8.3 mg/dl 8.0-10.5 N [id number] 07:13:00 Test Item Value Reference Range Interpretation Comments LIPASE (test code = LIP) 360 Units/L 65.0-230.0 H ARTERIAL BLOOD [id number] 16:13:00 Test Item Value Reference Range Interpretation [...] N N ORMAL METHGB) <2.0POTENTIALLY TOXIC >20.0 PaO2/[id number] 16:13:00 Test Item Value Reference Range Interpretation Comments PaO2/FiO2 (test code = RMR9HXX4) 422.60 mm/Hg ARTERIAL BLOOD [id number] 16:12:00 Test Item Value Reference Range Interpretation [...] N N ORMAL METHGB) <2.0POTENTIALLY TOXIC >20.0 PaO2/[id number] 16:12:00 Test Item Value Reference Range Interpretation Comments PaO2/FiO2 (test code = XTG7WGQ4) mm/Hg CBC W/AUTO [id number] 11:07:00 Test Item Value Reference Range Interpretation [...] 0.00-0.01 N code = NRBC#) BASIC METABOLIC [id number] 06:22:00 Test Item Value Reference Range Interpretation [...] code = CA) 8.4 mg/dl 8.0-10.5 N [id number] 06:22:00 Test Item Value Reference Range Interpretation Comments LIPASE (test code = LIP) 322 Units/L 65.0-230.0 H CBC W/AUTO [id number] 05:53:00 Test Item Value Reference Range Interpretation [...] 0.00-0.01 N NRBC#) - XR CHEST 1 [id number] 01:10:00 [facility] 1945 Sex: M FAX: Michael Holm MD [phone] [place]: St: [facility] FAX: Jeffery Mcnally [phone] Name: ATLHEA TOVAR Count includes the [facility] : 1945 Age/S: 75/M [address] [facility] Unit #: [id number] Loc: [place] Phys: [place] [address] Acct: [id number] Dis Date: Status: ADM IN PHONE #: [phone] Exam Date: 09/02/2020 005 FAX #: [phone] Reason: NGT PLACEMENT EXAMS: CPT CODE: [id number] XR CHEST 1 V 66342 EXAMINATION: - XR CHEST 1 V LOCATION: H61 INDICATION/CLINICAL HISTORY: NGT PLACEMENT COMPARISON: Chest x- ray 09/01/2020. TECHNIQUE: AP viewof the chest. FINDINGS: NG tube is again seen. The tip courses inferiorly out of the sastf-jw-ainy into the distal stomach. Cardiac silhouette is normal in size. There are unchanged strandy bibasilar opacities, compatible with subsegmental atelectasis. No new airspace disease. No appreciable pneumothorax or pleural effusion. Right PICC and endotracheal tube are unchanged. IMPRESSION: 1. NG tube tip courses inferiorly out of the dhusd-qv-akvf and is likely located in the distal stomach. 2. Unchanged bibasilar subsegmental atelectasis. at 0110 Reported and signed by: Stacy Gil CC: Martha Llamas MD; Enedina Cantrell MD Technologist: ESVIN PENA Trnscrd Date/Time/By: 09/02/2020 (0110) : By: [email or web address] PAGE 1 Signed Report FAX: Michael Holm MD [phone] [place]: St: [facility] FAX: Jeffery Gann [phone] Name: ALTHEA TOVAR JR [facility] [place] [facility] : 1945 Age/S: 75/M [address] [place] [employer] [facility] [place] Unit #: [id number] Loc: [place], [place]: [place] [address] Acct: [id number] Dis Date: Status: ADM IN PHONE #: [phone] Exam Date: 09/02/202050 FAX #: [phone] Reason: NGT PLACEMENT EXAMS: CPT CODE: [id number] XR CHEST 1 V 79631 <Continued> Orig Print D/T: S: 09/02/2020 (011) PAGE 2 Signed ReportRENAL FUNCTION [id number] 16:42:00 Test Item Value Reference Range Interpretation [...] code = PHOS) 1.9 mg/dl 2.5-4.9 L [id number] 16:42:00 Test Item Value Reference Range Interpretation Comments MAGNESIUM (test code = MAG) 1.9 mg/dl 1.8-2.4 N VANCOMYCIN [id number] 16:42:00 Test Item Value Reference Range Interpretation Comments VANCOMYCIN TROUGH 10.7 mcg/mL 10-20 N Other dise ase (test code = VANCT) associat ed reference ranges: 10 - 15 mcg/mL Celluli tis, urinary tract infection 15 - 20 mcg/mL Bactere galen, infective endocarditis, osteomyelitis, meningitis, pneumonia, lizzy re skin/soft tissu e infection, spi nal abscess Specimen comments: DRAW PRIOR AT 1600Comments to Iron Installer: DRAW AT 1600, DO NOT CANCEL- XR CHEST 1 [id number] 10:50:00 [facility] 1945 Sex: M FAX: Barbara Lund MD [phone] [place]: St: [facility] FAX: Jeffery Mcnally [phone] Name: ALTHEA TOVRA Count includes the [facility] : 1945 Age/S: 75/M [address] [facility] Unit #: [id number] Loc: [address] Phys: [place] [address] Acct: [id number] Dis Date: Status: ADM IN PHONE #: [phone] Exam Date: 09/01/2020 1039 FAX #: [phone] Reason: PICC PLACEMENT EXAMS: CPT CODE: [id number] XR CHEST 1 V 71874 Single View Chest. Location: S17 Clinical Indication: [...] Cantrell MDTechnologist: RANDALL PATRICIA Trnscrd Date/Time/By: 09/01/2020 (5430) : By: [email or web address] PAGE 1 Signed Report FAX: Barbara Lund MD [phone] [place]: St: ADM FAX: Jeffery Gann [phone] Name: ALTHEA TOVAR JR [facility] : 3Age/S: 75/M [address] [facility] Unit #: [id number] Loc: [address] [place]: [place] [address] Acct: [id number] Dis Date: Status: ADM IN PHONE #:[phone] Exam Date: 09/01/2020 1039 FAX #: [phone] Reason: PICC PLACEMENT EXAMS: CPT CODE: [id number] XR CHEST 1 V 90584 <Continued> Orig Print D/T: S: 09/01/2020 (0234) PAGE 2 Signed Report- XR CHEST 1 [id number] 07:56:00 [facility] ALLIE : 1945 Sex: M FAX: Jeffery Gann [phone] [place]: St: ADM Name: GUYALTHEA KELLEY Count includes the [facility] : 1945 Age/S: 75/M [address] [facility] Unit #: [id number] Loc: .[address] [place]: [place] [address] Acct: [id number] Dis Date: Status: ADM IN PHONE #: [phone] Exam Date: 09/01/2020 0535 FAX #: [phone] Reason: NG TUBE PLACEMENT EXAMS: CPT CODE: [id number] XR CHEST 1 V 84152 EXAM: - XR CHEST 1 V Location [...] PAGE 1 Signed Report FAX: Jeffery Gann [phone] [place]: St: ADM Name: ALTHEA TOVAR Count includes the [facility] : 1945 Age/S: 75/M [address] [facility] Unit #: [id number] Loc: [address] [place]: [place] [address] Acct: [id number] Dis Date: Status: ADM IN PHONE #: [phone] Exam Date: 09/01/2020534 FAX #: [phone] Reason: NG TUBE PLACEMENT EXAMS: CPT CODE: [id number] XR CHEST 1 V 55165 <Continued> Orig Print D/T: S: 09/01/2020 (0759) PAGE 2 Signed ReportCOMPREHENSIVE METABOLIC [id number] 06:08:00 Test Item Value Reference Range Interpretation [...] 60 Units/L 50.0-136.0 N code = ALKP) [id number] 06:08:00 Test Item Value Reference Range Interpretation Comments LIPASE (test code = LIP) 680 Units/L 65.0-230.0 H [id number] 06:08:00 Test Item Value Reference Range Interpretation Comments MAGNESIUM (test code = MAG) 2.1 mg/dl 1.8-2.4 N CBC W/AUTO [id number] 06:00:00 Test Item Value Reference Range Interpretation [...] X10 3uL 0.00-0.01 H NRBC#) RENAL FUNCTION [id number] 03:22:00 Test Item Value Reference Range Interpretation [...] code = PHOS) 0.7 mg/dl 2.5-4.9 LL [id number] 03:22:00 Test Item Value Reference Range Interpretation Comments MAGNESIUM (test code = MAG) 2.2 mg/dl 1.8-2.4 N UA RFLX MICR CULT IF [id number] 23:09:00 Test Item Value Reference Range Interpretation [...] Status: Under72 hoursUA RFLX MICR CULT IF [id number] 22:51:00 Test Item Value Reference Range Interpretation [...] srcSpecimen Description: CATHETERCath Status: Under72 hoursBASIC METABOLIC [id number] 20:55:00 Test Item Value Reference Range Interpretation [...] code = 8.9 mg/dl 8.0-10.5 N CA) [id number] 20:55:00 Test Item Value Reference Range Interpretation Comments MAGNESIUM (test code = MAG) 1.6 mg/dl 1.8-2.4 L [id number] 19:52:00 Test Item Value Reference Range Interpretation Comments GLUBED (test code = GLUBED) 158 mg/dL 70-110 H [id number] 19:52:00 Test Item Value Reference Range Interpretation Comments GLUBED (test code = GLUBED) 149 mg/dL 70-110 H BASIC METABOLIC [id number] 15:30:00 Test Item Value Reference Range Interpretation [...] 8.1 mg/dl 8.0-10.5 N CA) BASIC METABOLIC [id number] 15:29:00 Test Item Value Reference Range Interpretation [...] code = CA) 8.1 mg/dl 8.0-10.5 N [id number] 14:06:00 Test Item Value Reference Range Interpretation Comments GLUBED (test code = GLUBED) 143 mg/dL 70-110 H [id number] 14:05:00 Test Item Value Reference Range Interpretation Comments GLUBED (test code = GLUBED) 182 mg/dL 70-110 H [id number] 14:02:00 Test Item Value Reference Range Interpretation Comments GLUBED (test code = GLUBED) 138 mg/dL 70-110 H LACTIC ACID [id number] 12:16:00 Test Item Value Reference Range Interpretation Comments LACTIC ACID REPEAT (test code = 2.1 mmol/L 0.4-2.0 H LACTR) NURSE DRAW, [facility] ER BED 1ARTERIAL BLOOD [id number] 12:08:00 Test Item Value Reference Range Interpretation [...] N N ORMAL METHGB) <2.0POTENTIALLY TOXIC >20.0 PaO2/[id number] 12:08:00 Test Item Value Reference Range Interpretation Comments PaO2/FiO2 (test code = IMX7ZSA2) 352.00 mm/Hg ARTERIAL BLOOD [id number] 12:07:00 Test Item Value Reference Range Interpretation [...] N N ORMAL METHGB) <2.0POTENTIALLY TOXIC >20.0 PaO2/[id number] 12:07:00 Test Item Value Reference Range Interpretation Comments PaO2/FiO2 (test code = TZH6RQH7) mm/Hg [id number] 11:12:00 Test Item Value Reference Range Interpretation Comments GLUBED (test code = GLUBED) 141 mg/dL 70-110 H BASIC METABOLIC [id number] 10:40:00 Test Item Value Reference Range Interpretation [...] code = CA) 7.5 mg/dl 8.0-10.5 L [id number] 09:47:00 Test Item Value Reference Range Interpretation Comments GLUBED (test code = GLUBED) 162 mg/dL 70-110 H [id number] 09:34:00 Test Item Value Reference Range Interpretation Comments GLUBED (test code = GLUBED) 191 mg/dL 70-110 H [id number] 09:34:00 Test Item Value Reference Range Interpretation Comments GLUBED (test code = GLUBED) 204 mg/dL 70-110 H - CT ABD PELVIS W/O [id number] 08:32:00 [facility]RLEN TOVARMONSTER KELLEY : 1945 Sex: M FAX: Jeffery Gann [phone] [place]: St: ADM Name: ALTHEA TOVAR Count includes the [facility] : 1945 Age/S: 75/M [address] [facility] Unit: [id number] Loc: [place], [place]: [place] [address] Acct: [id number] Dis Date: Status: ADM IN PHONE #: [phone] Exam Date: 08/31/2020527 FAX #: [phone] Reason: pancreatitis EXAMS: CPT CODE: [id number] CT ABD PELVIS W/O CONT 60693 Dictation location: U19. CT ABDOMEN AND PELVIS [...] 1 Signed Report (CONTINUED) FAX: Jeffery Gann [phone] [place]: St: ADM -- Name: ALTHEA TOVAR JR [facility] : 1945 Age/S:75/M [address] [facility] Unit: [id number] Loc: [place], [place]: [place] [address] Acct: [id number] Dis Date: Status: ADM IN PHONE #: [phone] Exam Date: 08/31/2020527 FAX #: [phone] Reason: pancreatitis EXAMS: CPT CODE: [id number] CT ABD PELVIS W/O CONT 41470 <Continued> Atherosclerotic calcifications affect the aorta and its branches. Right common femoral venous catheter extending into the iliac vein. Air is noted within the common femoral vein likely related to the catheter. Small fat-containing umbilical hernia. No abdominal or pelvi c adenopathy. Moderate to severe lumbar spondylosis. Severe degenerative changesaffect the right hip. IMPRESSION: Inflammatory changes along the pancreas consistent with acute pancreatitis. No fluid collection. Hepatic steatosis. Multiple bilateral renal cysts. Several on the left are likely complex. Recommend follow-up nonemergent renal ultrasound. at 0832 Reported and signed by: Bob Kohli M.D. CC: Enedina Cantrell MD Technologist: JABARI STREETER Trnjocelynrd Dt/Tm: 08/31/2020 (0832) [email or web address] Orig Print D/T: S: 08/31/2020 (8035 PAGE 2 Signed Report- XR CHEST 1 [id number] 08:23:00 [facility] : 1945 Sex: M FAX: Michael Holm MD [phone] [place]: St: [facility] FAX: Jeffery Mcnally [phone] Name: ALTHEA TOVAR JR [facility] : 1945 Age/S: 75/M [address] Unit #: [id number] Loc: [place], [place]: [place] [address] Acct: [id number] Dis Date: Status: ADM IN PHONE #: [phone] Exam Date: 08/31/2020 05 FAX #: [phone] Reason: respiratory failure EXAMS: CPT CODE: [id number] XR CHEST 1 V 79913 Dictation location: U19. CHEST, FRONTAL VIEW HISTORY: [...] 1 Signed Report FAX: Michael Holm MD [phone] [place]: St: [facility] FAX: Jeffery Gann [phone] Name: GUYALTHEA KELLEY [facility] : 1945 Age/S: 75/M [address] Unit #: [id number] Loc: [place], [place]: [place] [address] Acct: [id number] Dis Date: Status: ADM IN PHONE #: [phone] Exam Date: 08/31/2020530 FAX #: [phone] Reason: respiratory failure EXAMS: CPT CODE: [id number] XR CHEST 1 V 52039 <Continued> Orig Print D/T: S: 08/31/2020 (0826) PAGE 2 Signed Report- CT C-SPINE W/O [id number] 08:18:00 [facility] 1945 Sex: M FAX: Michael Holm MD [phone] [place]: St: [facility] FAX: Jeffery Wolf [phone] Name: ALTHEA TOVAR Count includes the [facility] : 1945 Age/S: 75/M [address] Unit: [id number] Loc: ISAIAS [place], [place]: [place] [address] Acct: [id number] Dis Date: Status: ADM IN PHONE #: [phone] Exam Date: 08/31/2020 0528 FAX #: [phone] Re ason: AMS EXAMS: CPT CODE: [id number] CT C-SPINE W/O CONT 31603 Dictation location: U19. CT CERVICAL SPINE WITHOUT [...] Signed Report (CONTINUED) FAX: Michael Holm MD [phone] [place]: St: [facility] FAX: Jeffery Gann [phone] Name: KOMALDYLANALTHEA BURNETT JR [facility] : 1945 Age/S: 75/M [address] [facility] Unit: [id number] Loc: [place], [place]: [place] [address] Acct: [id number] DisDate: Status: ADM IN PHONE #: [phone] Exam Date: 08/31/2020527 FAX #: [phone] Reason: AMS EXAMS: CPT CODE: [id number] CT C-SPINE W/O CONT 25212 <Continued> CC: Michael Llamas MD; Enedina Cantrell MD Technologist: JABARI Cabrales Dt/Tm: 08/31/2020 (817) [email or web address] Orig Print D/T: S: 08/31/2020 (21 PAGE 2 Signed Report- CT HEAD/BRAIN W/O [id number] 08:16:00 [facility] : 1945 Sex: M FAX: Michael Holm MD [phone] [place]: St: ADM FAX: Jeffery Wolf [phone] Name: ALTHEA TOVAR Count includes the [facility] : 1945 Age/S: 75/M [address] [facility] Unit: [id number] Loc: [place], [place]: [place] [address] Acct: [id number] Dis Date: Status: ADM IN PHONE #: [phone] Exam Date: 08/31/2020 05 FAX #: [phone] Re ason: AMS EXAMS: CPT CODE: [id number] CT HEAD/BRAIN W/O CONT 78980 Dictation location: U19. CT HEAD WITHOUT CONTRAST. [...] Signed Report (CONTINUED) FAX: Michael Holm MD [phone] [place]: St: [facility] FAX: Jeffery Gann [phone] Name: ALTHEA TOVAR Count includes the [facility] : 1945 Age/S: 75/M [address] [facility] Unit: [id number] Loc: [place], [place]: [place] [address] Acct: [id number] Dis Date: Status: ADM IN PHONE #: [phone] Exam Date: 08/31/2020527 FAX #: [phone] Reason: AMS EXAMS: CPT CODE: [id number] CT HEAD/BRAINW/O CONT 96235 <Continued> CC: Michael Llamas MD; Enedina Cantrell MD Technologist: JABARI Cabrales Dt/Tm: 08/31/2020 (0816) [email or web address] Orig Print D/T: S: 08/31 (0820 PAGE 2 Signed [id number] 06:20:00 Test Item Value Reference Range Interpretation Comments GLUBED (test code = GLUBED) 328 mg/dL 70-110 H COMPREHENSIVE METABOLIC [id number] 04:54:00 Test Item Value Reference Range Interpretation [...] = ALKP) NURSE DRAW, COVID, ER BED [id number] 04:54:00 Test Item Value Reference Range Interpretation Comments LIPASE (test code = LIP) 4842 Units/L 65.0-230.0 H NURSE DRAW, [place], ER BED [id number] 04:49:00 Test Item Value Reference Range Interpretation Comments GLUBED (test code = GLUBED) 209 mg/dL 70-110 H [id number] 04:49:00 Test Item Value Reference Range Interpretation Comments GLUBED (test code = GLUBED) 198 mg/dL 70-110 H [id number] 04:49:00 Test Item Value Reference Range Interpretation Comments GLUBED (test code = GLUBED) 230 mg/dL 70-110 H [id number] 04:49:00 Test Item Value Reference Range Interpretation Comments GLUBED (test code = GLUBED) 204 mg/dL 70-110 H [id number] 04:49:00 Test Item Value Reference Range Interpretation Comments GLUBED (test code = GLUBED) 243 mg/dL 70-110 H [id number] 04:49:00 Test Item Value Reference Range Interpretation Comments GLUBED (test code = GLUBED) 255 mg/dL 70-110 H [id number] 04:49:00 Test Item Value Reference Range Interpretation Comments GLUBED (test code = GLUBED) 263 mg/dL 70-110 H COMPREHENSIVE METABOLIC [id number] 04:45:00 Test Item Value Reference Range Interpretation [...] 50.0-136.0 N code = ALKP) NURSE DRAW, [facility] ER BED [id number] 04:45:00 Test Item Value Reference Range Interpretation Comments LIPASE (test code = LIP) Units/L 65.0-230.0 NURSE DRAW, [facility] BED [id number] 04:41:00 Test Item Value Reference Range Interpretation Comments HGBA1C% (test code = HGBA1C%) 7.4 %A1C 4.8-6.0 H ESTIMATED AVERAGE GLUCOSE (test 166 MG/DL code = EAG) NURSE DRAW, [facility] BED 1CBC W/AUTO [id number] 04:29:00 Test Item Value Reference Range Interpretation [...] X10 3uL 0.00-0.01 H NRBC#) NURSE DRAW, COVID ER [id number] 03:05:00 Test Item Value Reference Range Interpretation Comments MAGNESIUM (test code = MAG) 2.0 mg/dl 1.8-2.4 N BASIC METABOLIC [id number] 02:23:00 Test Item Value Reference Range Interpretation [...] N NURSE DRAW, COVID ER BED 1LACTIC [id number] 23:51:00 Test Item Value Reference Range Interpretation Comments LACTIC ACID (test code = LACT) 2.5 MMOL/L 0.4-2.0 H BASIC METABOLIC [id number] 23:40:00 Test Item Value Reference Range Interpretation [...] = CA) 8.4 mg/dl 8.0-10.5 N ACETONE [id number] 22:36:00 Test Item Value Reference Range Interpretation Comments ACETONE BLOOD (test code = ACETB) MODERATE NEGATIVE [id number] 21:54:00 Test Item Value Reference Range Interpretation Comments GLUBED (test code = GLUBED) 411 mg/dL 70-110 H LACTIC [id number] 21:06:00 Test Item Value Reference Range Interpretation Comments LACTIC ACID (test code = LACT) 1.8 MMOL/L 0.4-2.0 N Coronavirus 2019 nCoV [id number] 21:01:00 Test Item Value Reference Range Interpretation Comments Coronavirus 2019 Negative NEGATIVE Negative re sults should be nCoV Bedside (test treated a s presumptive and code = ifinconsistent with XNDNQ93ZPNQM) clinical signs and symptoms, or ne cessaryfor patient managem ent, should be tested with an alternativemole cular assay. Negative result s do not preclude XYQY-CjF-8sdvki tion and should not be u sed as the sole basis forp atient management deci sions. Negative result s should beconsidered in the context of a patient's recent exposures,histo ry, presence of clinical sig ns and symptoms consis tentwith COVID-19. RENAL FUNCTION [id number] 20:59:00 Test Item Value Reference Range Interpretation [...] equal toComments toPhlebotomist: 12 mEq/L, then every morningMAGNESIUM 2020-08-30 20:59:00 Test Item Value Reference Range Interpretation [...] PHA) [facility] - [facility]; by [facility] ARTERIAL BLOOD GAS PCO2 46.7 mmHg [...] NOR MAL = METHGB) <2.0POTENTIALLY TOXIC >20.0 PaO2/[id number] 20:47:00 Test Item Value Reference Range Interpretation Comments PaO2/FiO2 (test code = QXR2YVH7) mm/Hg ARTERIAL BLOOD [id number] 20:47:00 Test Item Value Reference Range Interpretation Comments ARTERIAL BLOOD GAS PH 6.970 7.350-7.450 LL Result s called (test code = PHA) to and nenita d back by [facility] :47 - 08/30/2020; by D[facility] ARTERIAL [...] NOR MAL = METHGB) <2.0POTENTIALLY TOXIC >20.0 PaO2/[id number] 20:47:00 Test Item Value Reference Range Interpretation Comments PaO2/FiO2 (test code = PHH4QFS1) 351.00 mm/Hg CBC W/AUTO [id number] 20:44:00 Test Item Value Reference Range Interpretation [...] 0.00-0.01 H NRBC#) - XR CHEST 1 [id number] 20:36:00 [facility] AL[facility] : 1945 Sex: M FAX: Flavio Franklin MD [phone] [place]: St: REG Name: ALTHEA TOVAR Count includes the [facility] : 1945 Age/S: 75/M [address] [facility] Unit #: [id number] Loc: [place], [place]: [place] [address] Acct: [id number] Dis Date: Status: REG ER PHONE #: [phone] Exam Date: 08/30/20202032 FAX #: [phone] Reason: intubated EXAMS: CPT CODE: [id number] XR CHEST 1 V 40707 EXAM: CHEST ONE VIEW INDICATION: intubated LOCATION: [...] 1 Signed Report FAX: Flavio Franklin MD [phone] [place]: St: REG Name: ALTHEA TOVAR Count includes the [facility] : 1945 Age/S: 75/M [address] [facility] Unit #: [id number] Loc: [place], [place]: [place] [address] Acct: [id number] Dis Date: Status: REG ER PHONE #: [phone] Exam Date: 08/30/20202032 FAX #: [phone] Reason: intubated EXAMS: CPT CODE: [id number] XR CHEST 1 V 64029 <Continued> Orig Print D/T: S: 08/30/2020 (2039) PAGE 2 Signed ReportCT, CTA AAA, W/ [email or web address].EXT.[id number] 16:25:00[facility] : 1945 Sex: MAddendum BeginsREPORT [...] MDReport Verified Date/Time: 08/12/2020 16:25:56 Reading Location: [facility] Radiology Reading RoomAddendum EndsFINAL REPORT CTA [...] Technique: Multi- detector CT technology was employed (Ollie CT 660 scanner). Spiral acquisition before and [...] dictated regarding the non-vascular findings by the Vocational Counselor Radiologists. Signed: Buck Sears Verified Date/Time: 08/10/2020 14:41:04 Re ading Location: [place] [address] [address] Reading Room [id number] 12:09:00 Test Item Value Reference Range Interpretation Comments POC-CREATININE 0.8 mg/dL 0.6-1.3 : TESTED AT [facility] (BEAKER) (test [address] code = 1859) [place], [address]: Painter [employer]/Techni sandip ID = [id number] for Aretha Diallo POC-EGFR (BEAKER) 94 mL/min/1.73M2 (test code = 1860) PLATELET AGGREGATION: FUNCTION [id number] 14:06:00 Test Item Value Reference Range Interpretation Comments [id number] Daily Pina MD (BEAKER) (test code = [...] may be falsely low with platelet counts<75,000/cu mm.[employer] [employer] ID- [id number]-GLUCOSE [id number] 08:14:00 Test Item Value Reference Range Interpretation Comments POC-GLUCOSE METER 148 mg/dL 70-110 H : TESTED A T [facility] 6720 (BEAKER) (test code = [place], 1538) [address]: [employer]/Techni sandip ID = [id number] for CHAVO MAHMOOD [id number] 06:48:00 Test Item Value Reference Range Interpretation Comments PHOSPHORUS (BEAKER) (test code = 2.5 mg/dL 2.3-4.7 604) [employer] ID - WALDO [id number] 06:48:00 Test Item Value Reference Range Interpretation Comments MAGNESIUM (BEAKER) (test code = 2.4 mg/dL 1.6-2.6 627) [employer] ID Jose HAAS LBASIC METABOLIC [id number] 06:48:00 Test Item Value Reference Range Interpretation [...] S NOT APPLICABLE FOR DIALYSIS PATIEN TS. [employer] ID - WALDO LCBC W/PLT COUNT & AUTO [id number] 06:11:00 Test Item Value Reference Range Interpretation [...] PERCENT (BEAKER) (test code = 2801) POCT-GLUCOSE [id number] 21:40:00 Test Item Value Reference Range Interpretation Comments POC-GLUCOSE METER 168 mg/dL 70-110 H : TESTED A T [facility] 6720 [facility] (test code = [facility] Jania [facility], 153) [address]: [employer]/Techni sandip ID = [id number] for MARCE MIRANDA POCT-GLUCOSE [id number] 17:04:00 Test Item Value Reference Range Interpretation Comments POC-GLUCOSE METER 159 mg/dL 70-110 H : Notified RN/MD: ([facility]) (test code = TESTED AT [facility] 6720 153) [facility] [address]: [employer]/Techni sandip ID = [id number] for ROMINA RODRIGUEZ POCT-GLUCOSE [id number] 11:29:00 Test Item Value Reference Range Interpretation Comments POC-GLUCOSE METER 151 mg/dL 70-110 H : Notified RN/MD: (JUSTINE) (test code = TESTED AT [facility] 67 1538) [facility], [address]: [employer]/Techni sandip ID = [id number] for ROMINA RODRIGUEZ POCT-GLUCOSE [id number] 10:17:00 Test Item Value Reference Range Interpretation Comments POC-GLUCOSE METER 167 mg/dL 70-110 H : Notified RN/MD: (JUSTINE) (test code = TESTED AT [facility] 67 1538) [facility], [address]: [employer]/Techni sandip ID = [id number] for ROMINA RODRIGUEZ [id number] 08:36:00 Test Item Value Reference Range Interpretation Comments PHOSPHORUS (BEAKER) (test code = 2.4 mg/dL 2.3-4.7 604) [employer] ID Jose DELGADO [id number] 08:36:00 Test Item Value Reference Range Interpretation Comments MAGNESIUM (BEAKER) (test code = 2.3 mg/dL 1.6-2.6 627) [employer] ID Jose DELGADO FBASIC METABOLIC [id number] 08:36:00 Test Item Value Reference Range Interpretation [...] S NOT APPLICABLE FOR DIALYSIS PATIEN TS. [employer] ID - SANDY FPOCT-GLUCOSE [id number] 08:10:00 Test Item Value Reference Range Interpretation Comments POC-GLUCOSE METER 166 mg/dL 70-110 H : TESTED A T [facility] 6720 (BEAKER) (test code = [facility], 1538) [address]: [employer]/Techni sandip ID = [id number] for ROMINA RODRIGUEZ HEMOGLOBIN [id number] 08:09:00 Test Item Value Reference Range Interpretation Comments HEMOGLOBIN A1C (BEAKER) (test code = 8.8 % 4.3-6.1 H 368) POCT-GLUCOSE [id number] 07:42:00 Test Item Value Reference Range Interpretation Comments POC-GLUCOSE METER 181 mg/dL 70-110 H : TESTED A T [facility] 6720 (BEAKER) (test code = [facility], 1538) [address]: [employer]/Techni sandip ID = [id number] for ROMINA RODRIGUEZ RAD, CHEST, 1 VIEW, NON [id number] 07:27:00Reason for exam:->s/p PCI, impella removalShould this [...] MDReport Verified Date/Time: 02/23/2020 07:27:25 Reading Location: [facility] Radiology Reading Room POCT-GLUCOSE [id number] 06:27:00 Test Item Value Reference Range Interpretation Comments POC-GLUCOSE METER 150 mg/dL 70-110 H : TESTED A T [facility] 6720 (BEAKER) (test code = [facility], 1538) [address]: [employer]/Techni sandip ID = [id number] for SYLVIA ELLIS POCT-GLUCOSE [id number] 05:06:00 Test Item Value Reference Range Interpretation Comments POC-GLUCOSE METER 136 mg/dL 70-110 H : TESTED A T [facility] 6720 (BEAKER) (test code = BRENDA Dykes [facility], 1538) [address]: [employer]/Techni sandip ID = [id number] for SYLVIA ELLIS LACTIC ACID, [id number] 04:40:00 Test Item Value Reference Range Interpretation Comments LACTATE BLOOD ARTERIAL (2) 1.2 mmol/L 0.5-2.2 (BEAKER) (test code = 2874) [employer] ID - ARLENE GORE, [id number] 04:27:00 Test Item Value Reference Range Interpretation Comments KETONES, BLOOD (BEAKER) (test code 0.8 mmol/L <0.4 H = 1103) POCT-GLUCOSE [id number] 04:19:00 Test Item Value Reference Range Interpretation Comments POC-GLUCOSE METER 170 mg/dL 70-110 H : TESTED A T [facility] 6720 (BEAKER) (test code = [facility], 1538) [address]: [employer]/Techni sandip ID = [id number] for SYLVIA ELLIS LACTATE DEHYDROGENASE (LDH)2020-02-23 04:06:00 Test Item Value Reference Range Interpretation Comments LACTATE DEHYDROGENASE (BEAKER) (test 245 U/L 125-220 H code = 635) [employer] ID - JIMENEZ [id number] 03:59:00 Test Item Value Reference Range Interpretation Comments MAGNESIUM (BEAKER) (test code = 2.3 mg/dL 1.6-2.6 627) [employer] ID - ARLENE WBASIC METABOLIC [id number] 03:59:00 Test Item Value Reference Range Interpretation [...] S NOT APPLICABLE FOR DIALYSIS PATIEN TS. [employer] ID - ARLENE WLACTATE DEHYDROGENASE (LDH)2020-02-23 03:59:00 Test Item Value Reference Range Interpretation Comments LACTATE DEHYDROGENASE (BEAKER) (test 201 U/L 125-220 code = 635) [employer] ID - ARLENE WBLOOD GAS, [id number] 03:46:00 Test Item Value Reference Range Interpretation [...] 0-0 (BEAKER) (test code = 413) POCT-GLUCOSE [id number] 03:30:00 Test Item Value Reference Range Interpretation Comments POC-GLUCOSE METER 174 mg/dL 70-110 H : [facility] T [facility] 6720 [facility] (test code = [facility], 1538) [address]: [employer]/Techni sandip ID = [id number] for SYLVIA ELLIS POCT-GLUCOSE [id number] 02:16:00 Test Item Value Reference Range Interpretation Comments POC-GLUCOSE METER 153 mg/dL 70-110 H : TESTED A T [facility] 6720 (BEAKER) (test code = [facility], 1538) [address]: [employer]/Techni sandip ID = [id number] for LISBETH ELLISEN POCT-GLUCOSE [id number] 01:23:00 Test Item Value Reference Range Interpretation Comments POC-GLUCOSE METER 145 mg/dL 70-110 H : TESTED A T [facility] 6720 (BEAKER) (test code = [facility], 1538) [address]: [employer]/Techni sandip ID = [id number] for SABRINA-JERMAIN R, SYLVIA [id number] 00:59:00 Test Item Value Reference Range Interpretation Comments PHOSPHORUS (BEAKER) (test code = 2.3 mg/dL 2.3-4.7 604) [employer] ID - [id number] 00:59:00 Test Item Value Reference Range Interpretation Comments MAGNESIUM (BEAKER) (test code = 2.5 mg/dL 1.6-2.6 627) [employer] ID - DBBASIC METABOLIC [id number] 00:59:00 Test Item Value Reference Range Interpretation [...] S NOT APPLICABLE FOR DIALYSIS PATIEN TS. [employer] ID - DBLACTIC ACID, [id number] 00:55:00 Test Item Value Reference Range Interpretation Comments LACTATE BLOOD VENOUS (2) (BEAKER) 1.65 mmol/L 0.50-2.20 (test code = 2872) [employer] ID - DBPOCT-GLUCOSE [id number] 00:23:00 Test Item Value Reference Range Interpretation Comments POC-GLUCOSE METER 154 mg/dL 70-110 H : [facility] ([facility]ER[facility] (test code = [place], 1538) [address]: [employer]/Techni sandip ID = [id number] for SYLVIA ELLIS BASIC METABOLIC [id number] 21:52:00 Test Item Value Reference Range Interpretation [...] S NOT APPLICABLE FOR DIALYSIS PATIEN TS. [facility] ID - DBLACTIC ACID, [id number] 21:49:00 Test Item Value Reference Range Interpretation Comments LACTATE BLOOD ARTERIAL (2) 2.9 mmol/L 0.5-2.2 H (BEAKER) (test code = 2874) [employer] ID - DBKETONE, [id number] 21:41:00 Test Item Value Reference Range Interpretation Comments KETONES, BLOOD (BEAKER) (test code 1.6 mmol/L <0.4 H = 1103) BLOOD GAS, [id number] 21:33:00 Test Item Value Reference Range Interpretation [...] (test code = 1819) 36.0 % POCT-GLUCOSE [id number] 21:11:00 Test Item Value Reference Range Interpretation Comments POC-GLUCOSE METER 232 mg/dL 70-110 H : TESTED A T [facility] 6720 (BEAKER) (test code = [facility], 1538) [address]: [employer]/Techni sandip ID = [id number] for [place] POCT-GLUCOSE [id number] 19:19:00 Test Item Value Reference Range Interpretation Comments POC-GLUCOSE METER 276 mg/dL 70-110 H : TESTED A T [facility] 6720 (BEAKER) (test code = [facility], 1538) [address]: [employer]/Techni sandip ID = [id number] for [place] CREATINE KINASE (CK)2020-02-22 19:03:00 Test Item Value Reference Range Interpretation Comments CREATINE KINASE TOTAL (BEAKER) (test 152 U/L 29-200 code = 380) [employer] ID - DBPOCT-GLUCOSE [id number] 18:43:00 Test Item Value Reference Range Interpretation Comments POC-GLUCOSE METER 311 mg/dL 70-110 H : TESTED A T [facility] 6720 (BEAKER) (test code = [facility], 1538) [address]: [employer]/Techni sandip ID = [id number] for FLAUQITA WALL LACTIC ACID, [id number] 18:30:00 Test Item Value Reference Range Interpretation Comments LACTATE BLOOD ARTERIAL (2) 4.7 mmol/L 0.5-2.2 HH (BEAKER) (test code = 2874) [employer] ID - [id number] 18:28:00 Test Item Value Reference Range Interpretation Comments PHOSPHORUS (BEAKER) (test code = 4.4 mg/dL 2.3-4.7 604) [employer] ID - [id number] 18:28:00 Test Item Value Reference Range Interpretation Comments MAGNESIUM (BEAKER) (test code = 1.9 mg/dL 1.6-2.6 627) [employer] ID - DBBASIC METABOLIC [id number] 18:28:00 Test Item Value Reference Range Interpretation [...] S NOT APPLICABLE FOR DIALYSIS PATIEN TS. [facility] ID - DBGLUCOSE-STAT [id number] 18:07:00 Test Item Value Reference Range Interpretation Comments GLUCOSE RANDOM (BEAKER) (test code 292 mg/dL 70-110 H = 652) BASIC METABOLIC [id number] 15:15:00 Test Item Value Reference Range Interpretation [...] S NOT APPLICABLE FOR DIALYSIS PATIEN TS. [employer] ID - DBPROTHROMBIN [id number] 15:12:00 Test Item Value Reference Range Interpretation [...] for patients wiht mechanical heart valves.LACTIC ACID, [id number] 15:12:00 Test Item Value Reference Range Interpretation Comments LACTATE BLOOD 3.6 mmol/L 0.5-2.2 H Specimen sligh tly ARTERIAL (2) (BEAKER) hemoly zed (test code = 2874) [employer] ID - [id number] 15:12:00 Test Item Value Reference Range Interpretation Comments PARTIAL THROMBOPLASTIN TIME 30.1 seconds 22.5-36.0 (BEAKER) (test code = 760) CBC W/PLT COUNT & AUTO [id number] 15:09:00 Test Item Value Reference Range Interpretation [...] PERCENT (BEAKER) (test code = 2801) PLATELET [id number] 15:01:00 Test Item Value Reference Range Interpretation Comments PLATELET COUNT (BEAKER) (test 154 K/CU MM 150-450 code = 756) [id number] 13:51:00 Test Item Value Reference Range Interpretation Comments ACTIVATED CLOTTING TIME 125 sec : 74 -137 seconds, (BEAKER) (test code = Baseli ne: TESTED AT 441) [facility] 6720 [facility] [place], [address]: [employer]/Techni sandip ID = [id number] for CA STRO, SILVERIO GLUCOSE-STAT [id number] 13:24:00 Test Item Value Reference Range Interpretation Comments GLUCOSE RANDOM (BEAKER) (test code 185 mg/dL 70-110 H = 652) HGB/HCT (H&H) - STAT [id number] 13:24:00 Test Item Value Reference Range Interpretation Comments HEMOGLOBIN (BEAKER) (test code = 10.6 g/dL 13.0-16.8 L 410) HEMATOCRIT (BEAKER) (test code = 31.0 % 40.0-50.0 L 411) SODIUM NA-STAT [id number] 13:23:00 Test Item Value Reference Range Interpretation Comments SODIUM (BEAKER) (test code = 381) 136 meq/L 136-145 POTASSIUM-STAT [id number] 13:23:00 Test Item Value Reference Range Interpretation Comments POTASSIUM (BEAKER) (test code = 3.8 meq/L 3.6-5.5 379) BLOOD GAS, [id number] 13:23:00 Test Item Value Reference Range Interpretation [...] (BEAKER) (test code = 1819) 50.0 % [id number] 12:04:00 Test Item Value Reference Range Interpretation Comments ACTIVATED CLOTTING TIME 296 sec : 74 -137 seconds, (BEAKER) (test code = Baseli ne: TESTED AT 441) [address], [facility] 30: [employer]/Techni sandip ID = [id number] for ZURI YAP, CHAGO [id number] 11:48:00 Test Item Value Reference Range Interpretation Comments ACTIVATED CLOTTING TIME 257 sec : 74 -137 seconds, (BEAKER) (test code = Baseli ne: TESTED AT 441) [address], [facility] 30: [employer]/Techni sandip ID = [id number] for [place] LLIAMS, CHAGO [id number] 11:21:00 Test Item Value Reference Range Interpretation Comments ACTIVATED CLOTTING TIME 307 sec : 74 -137 seconds, (BEAKER) (test code = Baseli ne: TESTED AT 441) [address], [facility] 30: [employer]/Techni sandip ID = [id number] for RE DIC, BETY [id number] 10:34:00 Test Item Value Reference Range Interpretation Comments ACTIVATED CLOTTING TIME 296 sec : 74 -137 seconds, (BEAKER) (test code = Baseli ne: TESTED AT 441) [address], [facility] 30: [employer]/Techni sandip ID = [id number] for RE DIC, BETY [id number] 09:58:00 Test Item Value Reference Range Interpretation Comments ACTIVATED CLOTTING TIME 290 sec : 74 -137 seconds, (BEAKER) (test code = Baseli ne: TESTED AT 441) [place] [address] 30: [employer]/Techni sandip ID = [id number] for RE DIC, BETY [id number] 09:36:00 Test Item Value Reference Range Interpretation Comments ACTIVATED CLOTTING TIME 257 sec : 74 -137 seconds, (BEAKER) (test code = Baseli ne: TESTED AT 441) [place] [address] 30: [employer]/Techni sandip ID = [id number] for RE DIC, BETY SARS-COV2/RT-PCR ([facility])2020-02-21 19:54:00 Test Item Value Reference Range Interpretation Comments SARS-COV2/RT-PCR (test Not Detected Not Detected, Negative code = 4135309) SARS-COV-2 PERFORMING LAB [facility] (test code = 3353095) Negative results do not preclude SARS-CoV-2 infection [...] of the Act.Fact Sheet for Healthcare Pro viders:https://www.[employer]/Documents/Xpert%20Xpress%20SARS%20CoV-2/Fact%20Sh eets/302-3802%14ZTZJ-LNH-4%20HEALTHCARE%20PROVIDERS%20FACT%20SHEET.pdfFact Sheet for Healthcare Patients:https://www.[employer]/Documents/Xpert%20Xpress%20SARS%20CoV-2/Fact%20Sheets/302-3801%20SARS-COV -2%20PATIENT%20FACT%20SHEET.pdfPerforming Laboratory:[facility] [place], [place] [id number] 19:07:00 Test Item Value Reference Range Interpretation Comments MAGNESIUM (BEAKER) (test code = 2.4 mg/dL 1.6-2.6 627) [employer] ID - DBBASIC METABOLIC [id number] 19:07:00 Test Item Value Reference Range Interpretation [...] S NOT APPLICABLE FOR DIALYSIS PATIEN TS. [employer] ID - DBCBC W/PLT COUNT & AUTO [id number] 18:56:00 Test Item Value Reference Range Interpretation [...] 0-1 PERCENT (BEAKER) (test code = 2801) [id number] 18:54:00 Test Item Value Reference Range Interpretation [...] is2.5-3.5 for patients wiht mechanical heart valves.POCT-GLUCOSE [id number] 08:09:00 Test Item Value Reference Range Interpretation Comments POC-GLUCOSE METER 221 mg/dL 70-110 H : Notified RN/MD: TESTED (BEAKER) (test code AT [facility] 6720 [facility] 1538[facility], 770 30: [employer]/Techni sandip ID = [id number] for CECILE DANIEL TROPONIN [id number] 04:32:00 Test Item Value Reference Range Interpretation [...] failure, acidosis, acute neurological disease, and persistent tachyarrhythmia.[employer] ID - PIAYA LBASIC METABOLIC [id number] 04:16:00 Test Item Value Reference Range Interpretation [...] S NOT APPLICABLE FOR DIALYSIS PATIEN TS. [employer] ID - PIAYA LCBC (HEMOGRAM ONLY)2019-12-17 04:01:00 [...] RED BLOOD CELLS 0 /100 WBC 0-0 ([facility]) (test code = 413) TROPONIN [id number] 22:30:00 Test Item Value Reference Range Interpretation [...] failure, acidosis, acute neurological disease, and persistent tachyarrhythmia.[employer] ID - BSPOCT-GLUCOSE METER 2019-12-16 21:26:00 Test Item Value Reference Range Interpretation Comments POC-GLUCOSE METER 345 mg/dL 70-110 H : TESTED A T [facility] 6720 ([employer]) (test code = [place], 1538) [address]: [employer]/Techni sandip ID = [id number] for [place] TROPONIN [id number] 16:44:00 Test Item Value Reference Range Interpretation Comments [facility]OPONIN I [facility] (test code = 0.48 ng/mL 0.00-0.03 397) [...] failure, acidosis, acute neurological disease, and persistent tachyarrhythmia.[employer] ID - BSPLATELET AGGREGATION: FUNCTION [id number] 16:28:00 Test Item Value Reference Range Interpretation Comments [id number] Daily Pina, ([facility]) (test code = (electronic 7302) signature) PLATELET COUNT AGG 198 K/CU MM 150-450 (GnodalAKER) (test code = 2656) PLATELET RICH 285 k/cu mm 200-300 PLASMA([employer]) (test code = 2134) PLATELET FUNCTION SCREEN Decreased aggregation INTERPRETATION (JUSTINE) with ADP which (test code = 4655) indicates platelet dysfunction that may be due to medication effect, uremia, or other platelet function disorders. Clinical correlation is required. Platelet Function Screen results may be falsely low with platelet counts<75,000/cu mm.[employer] ID- [id number] 16:22:00 Test Item Value Reference Range Interpretation Comments PARTIAL THROMBOPLASTIN TIME 36.5 seconds 22.5-36.0 H (JUSTINE) (test code = 760) 6 hours after starting heparin infusion and as indicated per sliding scalePOCT- GLUCOSE [id number] 12:29:00 Test Item Value Reference Range Interpretation Comments POC-GLUCOSE METER 278 mg/dL 70-110 H : [facility] (JUSTINE) (test code = [place], 1538) [address]: [employer]/Techni sandip ID = [id number] for CIARAN MENENDEZ TROPONIN [id number] 11:03:00 Test Item Value Reference Range Interpretation [...] failure, acidosis, acute neurological disease, and persistent tachyarrhythmia.[employer] ID - NEELAM [id number] 10:50:00 Test Item Value Reference Range Interpretation Comments PARTIAL THROMBOPLASTIN TIME 29.5 seconds 22.5-36.0 (JUSTINE) (test code = 760) Prior to initiating heparinRAD, CHEST, 1 VIEW, NON [id number] 10:00:00Reason for exam:->Short of breathShould this be performed at the bedside?->Yes FINAL REPORT INDICATION: Short of breath COMPARISON: December 15, 2019 TECHNIQUE:Single frontal view of the chest. FINDINGS: Lungs and pleura: Mild interstitial edema. Trace right effusion. Heart and mediastinum: Normal heart size. Unremarkable mediastinal contours.Osseous structures: No acute abnormality.Other: None. . Signed: Myrna Langeeport Verified Date/Time: 12/16/2019 10:00:26 Reading Location: [facility] Reading Room HEMOGLOBIN [id number] 09:56:00 Test Item Value Reference Range Interpretation Comments HEMOGLOBIN A1C (BEAKER) (test code = 9.5 % 4.3-6.1 H 368) POCT-GLUCOSE [id number] 08:11:00 Test Item Value Reference Range Interpretation Comments POC-GLUCOSE METER 140 mg/dL 70-110 H : [facility] (BEAKER) (test code = [place], 1538) [address]: [employer]/Techni sandip ID = [id number] for CIARAN MENENDEZ LIPID [id number] 05:11:00 Test Item Value Reference Range Interpretation [...] Borderline 130-159 High 160-189 Very High >=190 [employer] ID - JIMENEZ MBASIC METABOLIC [id number] 05:11:00 Test Item Value Reference Range Interpretation [...] S NOT APPLICABLE FOR DIALYSIS PATIEN TS. [employer] ID - JIMENEZ MPOCT-GLUCOSE [id number] 21:46:00 Test Item Value Reference Range Interpretation Comments POC-GLUCOSE METER 177 mg/dL 70-110 H : TESTED Rodney T [facility] 6720 (BEAKER) (test code = BRENDA Dykes [facility], 1538) [address]: [employer]/Techni sandip ID = [id number] for [place] Ambrosio COMPREHENSIVE METABOLIC [id number] 18:50:00 Test Item Value Reference Range Interpretation [...] S NOT APPLICABLE FOR DIALYSIS PATIEN TS. [employer] ID - BSPROTHROMBIN TIME/[id number] 18:42:00 Test Item Value Reference Range Interpretation [...] INR is2.5-3.5 for patients wiht mechanical heart valves.[id number] 18:42:00 Test Item Value Reference Range Interpretation Comments PARTIAL THROMBOPLASTIN TIME 29.8 seconds 22.5-36.0 (BEAKER) (test code = 760) RAD, CHEST, 1 VIEW, NON [id number] 18:34:00Reason for exam:->s/p NSTEMI, pre-op CXRShould this be performed at the bedside?->YesFINAL REPORT Chest, portable AP view History: Status post NSTEMI, preoperative chest x-ray Comparison: No comparisons available for review IMPRESSION: The heart is within normal limits of size. Bibasilar atelectasis. There is mild interstitial edema. Small bilateral pleural effusions are suspected. No focal consolidation or pneumothorax. Signed: Nate Walsheport Verified Date/Time: 12/15/2019 18:34:02 Reading Location: [address] Radiology Reading Room POCT-GLUCOSE [id number] 16:09:00 Test Item Value Reference Range Interpretation Comments POC-GLUCOSE METER 185 mg/dL 70-110 H : TESTED A T [facility] 6720 ([facility]) (test code = [place], 1538) [address]: [employer]/Techni sandip ID = [id number] for GREG SUNG
[2022-02-06 10:36] LABS: Urine Blood 3+ (Negative); Urine Glucose 3+ (Negative); Urine Protein 1+ (Negative); Urine Specific Gravity 1.015 (1.005-1.030); Urine pH 5.5 (5.0-7.0)
[2022-02-06 10:45] LABS: Urine Appearance Cloudy (Clear); Urine Bilirubin Negative (Negative); Urine Blood 3+ (Negative); Urine Color Yellow (Yellow); Urine Glucose 3+ (Negative); Urine Protein 1+ (Negative); Urine Urobilinogen 0.2 mg/dL (0.2-1.0); Urine pH 5.5 (5.0-7.0)
[2022-02-06 10:46] LABS: Urine Microscopic Reflex ORDER UMIC
[2022-02-06 11:01] LABS: Urine Bacteria <20 /HPF (NONE SEEN)
--- NOTE | 2022-02-06 12:10 | EDPHYS ---
Physician Documentation [facility] Name: Dontrell Cartwright Jr Age: 76 yrs Sex: Male : 1945 Arrival Date: 02/06/2022 Time: 09:57 Bed 5 Private MD: ED Physician Dennis Leonard HPI: 02/06 10:55 This 76 yrs old Male presents to ER via Ambulatory with complaints of Urinary Problem. ms3 10:55 The patient presents with hematuria. Onset: The symptoms/episode began/occurred ms3 acutely, last night. Modifying factors: The symptoms are alleviated by nothing, the symptoms are aggravated by nothing. Associated signs and symptoms: Pertinent positives: hematuria. Severity of symptoms: At their worst the symptoms were moderate, in the emergency department the symptoms are unchanged. Historical: - Allergies: 10:15 No Known Allergies; ap3 - Home Meds: 10:15 Vitamin D Oral 2000 mg daily [Active]; Victoza 3-Abundio 0.6 mg/0.1 mL (18 mg/3 mL) ap3 subcutaneous pnij 1.8 mL once daily [Active]; spironolactone 25 mg Oral tab 1 tab once daily [Active]; rosuvastatin 10 mg Oral tab 1 tab once daily [Active]; metformin 500 mg Oral Tb24 1 tab once daily [Active]; Orencia (with maltose) 250 mg intravenous solr every 4 wks [Active]; ranolazine 500 mg Oral Tb12 1 tab daily [Active]; nitroglycerin 0.4 mg SL subl 1 tab every 5 minutes for Angina [Active]; metoprolol succinate 100 mg Oral CSpX 1 cap twice a day [Active]; Eliquis 5 mg Oral tab 1 tab 2 times per day [Active]; Jardiance 25 mg Oral tab 1 tab once daily [Active]; Lantus 100 unit/mL Sub-Q soln 100 unit daily [Active]; lansoprazole 30 mg Oral cpDR 1 cap nightly [Active]; tamsulosin 0.4 mg Oral cp24 1 cap once daily [Active]; gabapentin 100 mg oral cap [Active]; Tirosint 50 mcg oral cap [Active]; - PMHx: 10:15 Angina; Atrial Fib; Diabetes - IDDM; GERD; Hypertension; Rheumatoid Arthritis; ap3 - Immunization history:: Client reports receiving the 2nd dose of the Covid vaccine, \T\ 2 boosters. - Social history:: Smoking status: Patient denies any tobacco usage or history of. ROS: 10:55 Constitutional: Negative for fever, and chills. Neck: Negative for injury, pain, and ms3 swelling, Cardiovascular: Negative for chest pain, and palpitations. Respiratory: Negative for shortness of breath, cough, wheezing, and pleuritic chest pain, Abdomen/GI: Negative for abdominal pain, nausea, vomiting, diarrhea, and constipation, MS/Extremity: Negative for injury and deformity, Skin: Negative for injury, rash, and discoloration. 10:55 : Positive for hematuria. 10:55 All other systems are negative. Exam: 10:55 Constitutional: This is a well developed, well nourished patient who is awake, alert, ms3 and in no acute distress. Chest/axilla: Normal chest wall appearance and motion. Nontender with no deformity. Cardiovascular: Regular rate and rhythm with a normal S1 and S2. No gallops, murmurs, or rubs. Normal PMI, no JVD. No pulse deficits. Respiratory: Lungs have equal breath sounds bilaterally, clear to auscultation and percussion. No rales, rhonchi or wheezes noted. No increased work of breathing, no retractions or nasal flaring. Abdomen/GI: Soft, non-tender, with normal bowel sounds. No distension or tympany. No guarding or rebound. No evidence of tenderness throughout. Skin: Warm, dry with normal turgor. Normal color with no rashes, no lesions, and no evidence of cellulitis. Psych: Awake, alert, with orientation to person, place and time. Behavior, mood, and affect are within normal limits. 10:55 Skin: Abrasions with surrounding erythema on right forearm. ms3 Vital Signs: 10:09 BP 151 / 96; Pulse 70; Resp 17; Temp 98(O); Pulse Ox 97% on R/A; Weight 79.38 kg; mh5 Height 5 ft. 11 in. (180.34 cm); 11:26 BP 161 / 74; Pulse 71; Pulse Ox 98% on R/A; ap3 10:09 Body Mass Index 24.41 (79.38 kg, 180.34 cm) mh5 MDM: 10:23 Patient medically screened. ms3 12:10 Differential diagnosis: UTI, Cellulitis. ms3 12:10 Data reviewed: vital signs, nurses notes, lab test result(s). Counseling: I had a ms3 detailed discussion with the patient and/or guardian regarding: the historical points, exam findings, and any diagnostic results supporting the discharge/admit diagnosis, lab results, the need for outpatient follow up, to return to the emergency department if symptoms worsen or persist or if there are any questions or concerns that arise at home. ED course: Discussed labs, physical exam findings with patient. Patient to follow-up with Dr. Lux in 2 to 3 days. Patient understands and agrees with plan. All questions were answered. Return precautions discussed include worsening symptoms, or any other concerns. On reevaluation patient symptoms improved, patient is alert and oriented x4, no apparent distress, nontoxic, ambulatory in emergency department.. 02/06 10:36 Order name: Urine Dipstick-Ancillary; Complete Time: 11:27 EDSC 02/06 10:25 Order name: Urine Dipstick-Ancillary (obtain specimen); Complete Time: 10:31 ms3 02/06 10:45 Order name: Urinalysis; Complete Time: 11:27 EDMS 02/06 10:48 Order name: Urine Microscopic Only; Complete Time: 11:27 EDSC 02/06 11:04 Order name: Urine Culture EDSC Administered Medications: No medications were administered Disposition Summary: 02/06/22 12:10 Discharge Ordered Location: Home ms3 Condition: Stable ms3 Diagnosis - Gross hematuria ms3 - Cellulitis of other sites ms3 Followup: ms3 - With: Cholo Lux MD - When: 2 - 3 days - Reason: Recheck today's complaints Discharge Instructions: - Discharge Summary Sheet ms3 - Hematuria, Adult ms3 Forms: - Medication Reconciliation Form ms3 - Thank You Letter ms3 - Antibiotic Education ms3 - Prescription Opioid Use ms3 Prescriptions: - Cephalexin 500 mg Oral Capsule - take 1 capsule by ORAL route every 12 hours for 10 days; 20 capsule; Refills: ms3 0, Product Selection Permitted Signatures: Dispatcher [employer] Tomeka Penny RN RN ap3 Dennis Leonard DO DO ms3 Corrections: (The following items were deleted from the chart) 10:48 10:25 URINALYSIS+U.LAB.BRZ ordered. EDMS EDMS 17:13 Differential diagnosis: UTI, Cellulitis ms3 ms3 17:13 Data reviewed: ms3 ms3
--- NOTE | 2022-02-06 12:10 | ER ---
Nurse's Notes [facility] Name: Dontrell Cartwright Jr Age: 76 yrs Sex: Male : 1945 Arrival Date: 02/06/2022 Time: 09:57 Bed 5 Private MD: Diagnosis: Gross hematuria;Cellulitis of other sites Presentation: 02/06 10:12 Chief complaint: Patient states: he started having red urine yesterday February 05, 2022. ap3 Patient states it has improved, but is still present. Patient also reports pain with urination that began at approx the same time. Coronavirus screen: At this time, the client does not indicate any symptoms associated with coronavirus-19. Ebola Screen: No symptoms or risks identified at this time. Initial Sepsis Screen: Does the patient meet any 2 criteria? No. Patient's initial sepsis screen is negative. Does the patient have a suspected source of infection? No. Patient's initial sepsis screen is negative. Risk Assessment: Do you want to hurt yourself or someone else? Patient reports no desire to harm self or others. Onset of symptoms was February 05, 2022. 10:12 Method Of Arrival: Ambulatory ap3 10:12 Acuity: NEREIDA 3 ap3 Triage Assessment: 10:20 General: Appears in no apparent distress. comfortable, Behavior is calm, cooperative, ap3 appropriate for age. Pain: Complains of pain in groin Aggravated by urination. Neuro: Level of Consciousness is awake, alert, obeys commands, Oriented to person, place, time, situation, Appropriate for age Speech is normal. Cardiovascular: Patient's skin is warm and dry. Respiratory: Airway is patent Respiratory effort is even, unlabored. : Reports burning with urination, pain with urination, blood in urine. Historical: - Allergies: 10:15 No Known Allergies; ap3 - Home Meds: 10:15 Vitamin D Oral 2000 mg daily [Active]; Victoza 3-Abundio 0.6 mg/0.1 mL (18 mg/3 mL) ap3 subcutaneous pnij 1.8 mL once daily [Active]; spironolactone 25 mg Oral tab 1 tab once daily [Active]; rosuvastatin 10 mg Oral tab 1 tab once daily [Active]; metformin 500 mg Oral Tb24 1 tab once daily [Active]; Orencia (with maltose) 250 mg intravenous solr every 4 wks [Active]; ranolazine 500 mg Oral Tb12 1 tab daily [Active]; nitroglycerin 0.4 mg SL subl 1 tab every 5 minutes for Angina [Active]; metoprolol succinate 100 mg Oral CSpX 1 cap twice a day [Active]; Eliquis 5 mg Oral tab 1 tab 2 times per day [Active]; Jardiance 25 mg Oral tab 1 tab once daily [Active]; Lantus 100 unit/mL Sub-Q soln 100 unit daily [Active]; lansoprazole 30 mg Oral cpDR 1 cap nightly [Active]; tamsulosin 0.4 mg Oral cp24 1 cap once daily [Active]; gabapentin 100 mg oral cap [Active]; Tirosint 50 mcg oral cap [Active]; - PMHx: 10:15 Angina; Atrial Fib; Diabetes - IDDM; GERD; Hypertension; Rheumatoid Arthritis; ap3 - Immunization history:: Client reports receiving the 2nd dose of the Covid vaccine, \T\ 2 boosters. - Social history:: Smoking status: Patient denies any tobacco usage or history of. Screenin:19 Abuse screen: Denies threats or abuse. Nutritional screening: No deficits noted. ap3 Tuberculosis screening: No symptoms or risk factors identified. Fall Risk None identified. Assessment: 10:21 General: patient provided with urine specimen container and education on proper urine ap3 collection. patient verbalized understanding. 11:26 Reassessment: Patient and/or family updated on plan of care and expected duration. Pain ap3 level reassessed. Patient is alert, oriented x 3, equal unlabored respirations, skin warm/dry/pink. Vital Signs: 10:09 BP 151 / 96; Pulse 70; Resp 17; Temp 98(O); Pulse Ox 97% on R/A; Weight 79.38 kg; mh5 Height 5 ft. 11 in. (180.34 cm); 11:26 BP 161 / 74; Pulse 71; Pulse Ox 98% on R/A; ap3 10:09 Body Mass Index 24.41 (79.38 kg, 180.34 cm) [facility] ED Course: 09:57 Patient arrived in ED. mr 10:05 Dennis Leonard DO is Attending Physician. ms3 10:10 Patient has correct armband on for positive identification. Bed in low position. Call [facility] light in reach. Side rails up X 1. Adult w/ patient. Warm blanket given. secondary connector armature on. Pulse ox on. 10:15 Triage completed. ap3 10:21 Arm band placed on right wrist. ap3 12:07 Cholo Lux MD is Referral Physician. ms3 12:47 No provider procedures requiring assistance completed. Patient did not have IV access iw during this emergency room visit. Administered Medications: No medications were administered Medication: 10:21 VIS not applicable for this client. ap3 Outcome: 12:10 Discharge ordered by . ms3 12:47 Discharged to home ambulatory. iw 12:47 Condition: good 12:47 Discharge instructions given to patient, Instructed on discharge instructions, follow up and referral plans. medication usage, Demonstrated understanding of instructions, follow-up care, medications, Prescriptions given X 1. 12:48 Patient left the ED. iw Signatures: Renuka Vega mr Arianna Rincon RN RN Josephine Avila 5 Tomeka Barreto RN RN 3 Dennis Leonard DO DO ms3 Corrections: (The following items were deleted from the chart) 10:48 10:36 URINALYSIS+U.LAB.BRZ drawn and sent. [facility] EDMS
[2022-02-06 13:16] VITALS: TEMP 98
[2022-02-06 13:17] VITALS: BP 161/74; O2SAT 98
== END 2022-02-06 12:48 | disposition home or self-care (01) ==
LOC: ER 09:54
DX: R31.0 Gross hematuria (principal); L03.113 Cellulitis of right upper limb; E11.9 Type 2 diabetes mellitus without complications; Z79.4 Long term (current) use of insulin; I10 Essential (primary) hypertension; I48.91 Unspecified atrial fibrillation; Z79.01 Long term (current) use of anticoagulants
CPT/HCPCS: 81003; 81015; 87086; 87088; 99284

== ENCOUNTER 2022-03-08 05:43 | Emergency (ER) | payer OTHER ==
[2022-03-08] MEDS ORDERED: NITROGLYCERIN 0.4 MG/TAB SL ONE (06:28)
[2022-03-08 06:50] LABS: Absolute Lymphocytes (CBC) 1.5 K/uL (0.7-4.9); Hematocrit 42.3 % (39.6-49.0); Lymphocytes % 19.7 % (15.3-44.8); MCV 93.8 fL (80-100); MPV 8.3 fL (7.6-11.3); RBC Red Blood Cell Count 4.51 M/uL (4.33-5.43)
[2022-03-08 07:09] LABS: Potassium 4.2 mmol/L (3.5-5.1)
[2022-03-08 07:13] LABS: Troponin High Sensitivity 84.6 pg/mL (<58.9)
--- NOTE | 2022-03-08 07:42 | RAD REPORT ---
EXAM DESCRIPTION: RAD - Chest Single View - 03/08/2022 6:34 am CLINICAL HISTORY: CHEST PAIN COMPARISON: Chest Single View dated 11/06/2021; Chest Single View dated 08/30/2020; Chest Single View dated 05/20/2020; Chest Single View dated 12/15/2019 FINDINGS: Lines: None. Lungs: No evidence of edema or pneumonia. Pleural: No significant pleural effusions or pneumothorax. Cardiac: The heart size is within normal limits. Bones: No acute fractures. Other: IMPRESSION: No acute cardiopulmonary disease.
--- NOTE | 2022-03-08 07:45 | EDPHYS ---
Physician Documentation [facility] Name: Dontrell Cartwright Jr Age: 76 yrs Sex: Male : 1945 Arrival Date: 03/08/2022 Time: 05:45 Bed 5 Private MD: LORY Physician Lauri Abel HPI: 03/08 08:33 This 76 yrs old Male presents to ER via Ambulatory with complaints of Chest Pain > 30 kdr y/o, AFIB. 08:33 The patient or guardian reports chest pain that is located primarily in the anterior kdr chest wall, bilaterally, chest diffusely. Onset: suddenly, at 02:00. The pain does not radiate. Associated signs and symptoms: The patient has no apparent associated signs or symptoms. The chest pain is described as aching, dull, a pressure, squeezing. Duration: The patient or guardian reports multiple episodes, that are intermittent, that wax and wane, with no pattern. Modifying factors: The symptoms are alleviated by nothing. the symptoms are aggravated by nothing. Severity of pain: At its worst the pain was mild in the emergency department the pain is unchanged. The patient has experienced similar episodes in the past, The patient states that he ran out of his nitroglycerin. He feels that he has occasional atrial fibrillation attacks and that if he can take 1 nitroglycerin, the attack will resolve. Historical: - Allergies: 06:02 No Known Allergies; as6 - Home Meds: 06:02 Eliquis 5 mg Oral tab 1 tab 2 times per day [Active]; gabapentin 100 mg Oral cap as6 [Active]; Jardiance 25 mg Oral tab 1 tab once daily [Active]; lansoprazole 30 mg Oral cpDR 1 cap nightly [Active]; Lantus 100 unit/mL Sub-Q soln 100 unit daily [Active]; metformin 500 mg Oral Tb24 1 tab once daily [Active]; nitroglycerin 0.4 mg SL subl 1 tab every 5 minutes for Angina [Active]; Orencia (with maltose) 250 mg intravenous solr every 4 wks [Active]; ranolazine 500 mg Oral Tb12 1 tab daily [Active]; metoprolol succinate 100 mg Oral CSpX 1 cap twice a day [Active]; rosuvastatin 10 mg Oral tab 1 tab once daily [Active]; tamsulosin 0.4 mg Oral cp24 1 cap once daily [Active]; Victoza 3-Abundio 0.6 mg/0.1 mL (18 mg/3 mL) subcutaneous pnij 1.8 mL once daily [Active]; spironolactone 25 mg Oral tab 1 tab once daily [Active]; Tirosint 50 mcg Oral cap [Active]; Vitamin D Oral 2000 mg daily [Active]; - PMHx: 06:02 Angina; Atrial Fib; Diabetes - IDDM; GERD; Hypertension; Rheumatoid Arthritis; Atrial as6 fibrillation; - PSHx: 06:02 cardiac stents; as6 - Immunization history:: Client reports receiving the 2nd dose of the Covid vaccine, 51fanli and Panono . - Social history:: Smoking status: Patient denies any tobacco usage or history of. ROS: 08:33 Constitutional: Negative for fever, chills, and weight loss, Eyes: Negative for injury, kdr pain, redness, and discharge, ENT: Negative for injury, pain, and discharge, Neck: Negative for injury, pain, and swelling, Respiratory: Negative for shortness of breath, cough, wheezing, and pleuritic chest pain, Abdomen/GI: Negative for abdominal pain, nausea, vomiting, diarrhea, and constipation, Back: Negative for injury and pain, : Negative for injury, bleeding, discharge, and swelling, MS/Extremity: Negative for injury and deformity, Skin: Negative for injury, rash, and discoloration, Neuro: Negative for headache, weakness, numbness, tingling, and seizure activity. Psych: Negative for depression, anxiety, suicide ideation, homicidal ideation, and hallucinations, Allergy/Immunology: Negative for hives, rash, and allergies, Endocrine: Negative for neck swelling, polydipsia, polyuria, polyphagia, and marked weight changes, Hematologic/Lymphatic: Negative for swollen nodes, abnormal bleeding, and unusual bruising. 08:33 Cardiovascular: Positive for chest pain, palpitations, Negative for edema, orthopnea. Exam: 08:33 Constitutional: This is a well developed, well nourished patient who is awake, alert, kdr and in no acute distress. Head/Face: Normocephalic, atraumatic. Eyes: Pupils equal round and reactive to light, extra-ocular motions intact. Lids and lashes normal. Conjunctiva and sclera are non-icteric and not injected. Cornea within normal limits. Periorbital areas with no swelling, redness, or edema. Neck: Trachea midline, no thyromegaly or masses palpated, and no cervical lymphadenopathy. Supple, full range of motion without nuchal rigidity, or vertebral point tenderness. No Meningismus. Chest/axilla: Normal chest wall appearance and motion. Nontender with no deformity. No lesions are appreciated. Respiratory: Lungs have equal breath sounds bilaterally, clear to auscultation and percussion. No rales, rhonchi or wheezes noted. No increased work of breathing, no retractions or nasal flaring. Abdomen/GI: Soft, non-tender, with normal bowel sounds. No distension or tympany. No guarding or rebound. No evidence of tenderness throughout. Back: No spinal tenderness. No costovertebral tenderness. Full range of motion. Skin: Warm, dry with normal turgor. Normal color with no rashes, no lesions, and no evidence of cellulitis. MS/ Extremity: Pulses equal, no cyanosis. Neurovascular intact. Full, normal range of motion. Neuro: Awake and alert, GCS 15, oriented to person, place, time, and situation. Cranial nerves II-XII grossly intact. Motor strength 5/5 in all extremities. Sensory grossly intact. Cerebellar exam normal. Normal gait. Psych: Awake, alert, with orientation to person, place and time. Behavior, mood, and affect are within normal limits. Vital Signs: 05:59 BP 136 / 83; Pulse 60; Resp 13 S; Temp 98.6(O); Pulse Ox 95% on R/A; Weight 79.38 kg as6 (R); Height 5 ft. 11 in. (180.34 cm) (R); Pain 09/18; 07:00 BP 109 / 64; Pulse 80; Resp 16; Pulse Ox 98% ; bp 09:00 BP 87 / 60; Pulse 60; Resp 15; Pulse Ox 98% ; bp 11:00 BP 105 / 52; Pulse 71; Resp 16; Pulse Ox 100% ; bp 13:00 BP 102 / 70; Pulse 64; Resp 16; Pulse Ox 96% ; bp 15:00 BP 114 / 72; Pulse 67; Resp 16; Pulse Ox 97% ; bp 16:00 BP 106 / 79; Pulse 75; Resp 16; Pulse Ox 98% ; bp 05:59 Body Mass Index 24.41 (79.38 kg, 180.34 cm) as6 MDM: 07:44 Patient medically screened. kdr 08:33 HEART Score: History: Moderately Suspicious (1), ECG: Non specific repolarization kdr disturbance / LBTB / PM (1), Age: > or = 65 years (2), Risk Factors: > or = 3 Risk factors for atherosclerotic disease (2), Troponin: > 1 and < 3 x normal limit (1), Total Score = 10. Data reviewed: vital signs, nurses notes. 03/08 05:53 Order name: Basic Metabolic Panel; Complete Time: 07:22 kdr 03/08 05:53 Order name: CBC with Diff; Complete Time: 07:06 kdr 03/08 05:53 Order name: NT PRO-BNP; Complete Time: 07:22 kdr 03/08 05:53 Order name: Troponin HS; Complete Time: 07:22 kdr 03/08 07:46 Order name: Urine Culture kdr 03/08 07:49 Order name: SARS-COV-2 RT PCR (Document "Date of Onset" if Symptomatic); Complete Time: eb 10:56 03/08 05:53 Order name: XRAY Chest (1 view); Complete Time: 07:47 kdr 03/08 08:12 Order name: Urine Dipstick-Ancillary; Complete Time: 08:27 EDMS 03/08 09:24 Order name: Troponin High Sensitivity: 930AM; Complete Time: 10:56 elizabeth 03/08 05:53 Order name: EKG; Complete Time: 05:53 kdr 03/08 05:53 Order name: Cardiac monitoring; Complete Time: 06:11 kdr 03/08 05:53 Order name: EKG - Nurse/Tech; Complete Time: 06:36 kdr 03/08 05:53 Order name: IV Saline Lock; Complete Time: 06:36 kdr 03/08 05:53 Order name: Labs collected and sent; Complete Time: 06:37 kdr 03/08 05:53 Order name: O2 Per Protocol; Complete Time: 06:11 kdr 03/08 05:53 Order name: O2 Sat Monitoring; Complete Time: 06:11 kdr 03/08 07:46 Order name: Urine Dipstick-Ancillary (obtain specimen); Complete Time: 08:13 kdr Administered Medications: 06:36 Drug: Nitroglycerin 0.4 mg Route: Sublingual; as6 09:32 Follow up: Response: No adverse reaction bp 08:08 Drug: Bactrim (trimethoprim-sulfamethoxazole) (160 mg-800 mg (DS) 1 tablet Route: PO; 6 09:32 Follow up: Response: No adverse reaction bp 10:00 Drug: Insulin Regular Human 5 units {Co-Signature: ha1 (Edie Bartholomew RN).} Route: IVP; bp Site: right forearm; 10:09 Follow up: Response: No adverse reaction bp 10:00 Drug: Semglee 100 unit/mL 30 units/kg {Note: 30 units sq.} Route: Sub-Q; Site: right bp lower abdomen; 10:09 Follow up: Response: No adverse reaction bp 10:00 Drug: Rocephin (cefTRIAXone) 1 grams Route: IV; Rate: per protocol; Site: right forearm;bp 15:55 Follow up: IV Status: Completed infusion; IV Intake: 100ml bp 10:00 Drug: NS 0.9% 1000 ml Route: IV; Rate: 125 ml/hr; Site: right forearm; bp 15:55 Follow up: IV Status: Infusion continued upon transfer bp Disposition Summary: 03/08/22 07:44 Transfer Ordered Transfer Location: [facility] kdr Reason: Higher level of care kdr Condition: Fair kdr Problem: new kdr Symptoms: are unchanged kdr Accepting Physician: Dr. Carmona(03/08/22 16:53) iw Diagnosis - Subsequent non-ST elevation (NSTEMI) myocardial infarction kdr - Gross hematuria kdr Forms: - Medication Reconciliation Form kdr - SBAR form kdr Signatures: Dispatcher [employer] EDMO Lauri Abel MD MD cha Rittger, Kevin, MD MD kdr Arianna Rincon RN RN iw Mann Kwong RN RN bp Rolando Cook RN RN as6 Arti Sanders RN RN [facility] Edie Bartholomew RN ha1 Corrections: (The following items were deleted from the chart) 16:52 07:44 Dr. Carmona kdr iw 16:53 16:52 Dr. Carmona iw iw
--- NOTE | 2022-03-08 07:45 | ER ---
Nurse's Notes [facility] Name: Dontrell Cartwright Jr Age: 76 yrs Sex: Male : 1945 Arrival Date: 03/08/2022 Time: 05:45 Bed 5 Private MD: Diagnosis: Subsequent non-ST elevation (NSTEMI) myocardial infarction;Gross hematuria Presentation: 03/08 05:59 Chief complaint: Patient states: "About a month ago I was here and diagnosis with a UTI as6 I took the antibiotics but now I think the UTI is back. I also felt my a-fib acting up this morning". Coronavirus screen: At this time, the client does not indicate any symptoms associated with coronavirus-19. Ebola Screen: No symptoms or risks identified at this time. Initial Sepsis Screen: Does the patient meet any 2 criteria? No. Patient's initial sepsis screen is negative. Does the patient have a suspected source of infection? No. Patient's initial sepsis screen is negative. Risk Assessment: Do you want to hurt yourself or someone else? Patient reports no desire to harm self or others. Onset of symptoms was March 08, 2022. 05:59 Method Of Arrival: Ambulatory as6 05:59 Acuity: NEREIDA 3 as6 Historical: - Allergies: 06:02 No Known Allergies; as6 - Home Meds: 06:02 Eliquis 5 mg Oral tab 1 tab 2 times per day [Active]; gabapentin 100 mg Oral cap as6 [Active]; Jardiance 25 mg Oral tab 1 tab once daily [Active]; lansoprazole 30 mg Oral cpDR 1 cap nightly [Active]; Lantus 100 unit/mL Sub-Q soln 100 unit daily [Active]; metformin 500 mg Oral Tb24 1 tab once daily [Active]; nitroglycerin 0.4 mg SL subl 1 tab every 5 minutes for Angina [Active]; Orencia (with maltose) 250 mg intravenous solr every 4 wks [Active]; ranolazine 500 mg Oral Tb12 1 tab daily [Active]; metoprolol succinate 100 mg Oral CSpX 1 cap twice a day [Active]; rosuvastatin 10 mg Oral tab 1 tab once daily [Active]; tamsulosin 0.4 mg Oral cp24 1 cap once daily [Active]; Victoza 3-Abundio 0.6 mg/0.1 mL (18 mg/3 mL) subcutaneous pnij 1.8 mL once daily [Active]; spironolactone 25 mg Oral tab 1 tab once daily [Active]; Tirosint 50 mcg Oral cap [Active]; Vitamin D Oral 2000 mg daily [Active]; - PMHx: 06:02 Angina; Atrial Fib; Diabetes - IDDM; GERD; Hypertension; Rheumatoid Arthritis; Atrial as6 fibrillation; - PSHx: 06:02 cardiac stents; as6 - Immunization history:: Client reports receiving the 2nd dose of the Covid vaccine, pfizer and moderna . - Social history:: Smoking status: Patient denies any tobacco usage or history of. Screenin:04 Abuse screen: Denies threats or abuse. Denies injuries from another. Nutritional as6 screening: No deficits noted. Tuberculosis screening: No symptoms or risk factors identified. Fall Risk None identified. Assessment: 06:00 General: Appears in no apparent distress. Behavior is calm, cooperative. Pain: as6 Complains of pain in chest Pain does not radiate. Pain began gradually. Neuro: Level of Consciousness is awake, alert, obeys commands, Oriented to person, place, time, situation. Cardiovascular: Reports chest pain, palpitations. Respiratory: Respiratory effort is even, unlabored. 07:00 Reassessment: RECD REPORT FROM ROLANDO JOEL. 76YO WM P/W URINARY S/S AND AFIB, CHRONIC H/O bp BOTH. 09:00 Reassessment: TRANSFER INITIATED. bp 11:00 Reassessment: No changes from previously documented assessment. Patient and/or family bp updated on plan of care and expected duration. Pain level reassessed. 13:00 Reassessment: TRANSFER IN PROCESS. bp 15:40 Reassessment: No changes from previously documented assessment. Patient and/or family jh6 updated on plan of care and expected duration. Pain level reassessed. Patient is alert, oriented x 3, equal unlabored respirations, skin warm/dry/pink. pt resting watching tv, adivsed that we were still waiting for transfer and that unkn time at this time. 16:32 Reassessment: PT [facility] WITH [facility]. bp Vital Signs: 05:59 BP 136 / 83; Pulse 60; Resp 13 S; Temp 98.6(O); Pulse Ox 95% on R/A; Weight 79.38 kg as6 (R); Height 5 ft. 11 in. (180.34 cm) (R); Pain 1/10; 07:00 BP 109 / 64; Pulse 80; Resp 16; Pulse Ox 98% ; bp 09:00 BP 87 / 60; Pulse 60; Resp 15; Pulse Ox 98% ; bp 11:00 BP 105 / 52; Pulse 71; Resp 16; Pulse Ox 100% ; bp 13:00 BP 102 / 70; Pulse 64; Resp 16; Pulse Ox 96% ; bp 15:00 BP 114 / 72; Pulse 67; Resp 16; Pulse Ox 97% ; bp 16:00 BP 106 / 79; Pulse 75; Resp 16; Pulse Ox 98% ; bp 05:59 Body Mass Index 24.41 (79.38 kg, 180.34 cm) as6 ED Course: 05:45 Patient arrived in ED. bp1 05:54 Rolando Cook RN is Primary Nurse. as6 05:55 Vlad Chua MD is Attending Physician. kdr 06:02 Triage completed. as6 06:04 Arm band placed on. as6 06:04 Bed in low position. Call light in reach. Side rails up X2. Client placed on continuous as6 cardiac and pulse oximetry monitoring. NIBP monitoring applied. 06:30 Inserted saline lock: 18 gauge in right forearm, using aseptic technique. Blood as6 collected. 06:30 Patient maintains SpO2 saturation greater than 95% on room air. as6 06:36 XRAY Chest (1 view) In Process Unspecified. EDMS 06:37 Basic Metabolic Panel Sent. as6 06:37 CBC with Diff Sent. as6 06:37 NT PRO-BNP Sent. as6 06:37 Troponin HS Sent. as6 07:12 Notified ED physician of a critical lab result(s). troponin of 84.6 Dr Chua notified.bb 07:25 Primary Nurse role handed off by Rolando Cook RN eb 07:29 Mann Kwong, WISAM is Primary Nurse. bp 07:45 initiated a transfer with Daily Galeana from the [facility]. eb 09:23 Attending Physician role handed off by Vlad Chua MD elizabeth 09:23 Lauri Abel MD is Attending Physician. elizabeth 15:01 administrative approval given by Daily Medrano/ patient has been accepted to [facility] bed 1119/ Dr. Carmona has accepted the patient in transfer/ report to be called to [phone]. 15:54 No provider procedures requiring assistance completed. Patient transferred, IV remains bp in place. Administered Medications: 06:36 Drug: Nitroglycerin 0.4 mg Route: Sublingual; as6 09:32 Follow up: Response: No adverse reaction bp 08:08 Drug: Bactrim (trimethoprim-sulfamethoxazole) (160 mg-800 mg (DS) 1 tablet Route: PO; jh6 09:32 Follow up: Response: No adverse reaction bp 10:00 Drug: Insulin Regular Human 5 units {Co-Signature: ha1 (Edie Bartholomew RN).} Route: IVP; bp Site: right forearm; 10:09 Follow up: Response: No adverse reaction bp 10:00 Drug: Semglee 100 unit/mL 30 units/kg {Note: 30 units sq.} Route: Sub-Q; Site: right bp lower abdomen; 10:09 Follow up: Response: No adverse reaction bp 10:00 Drug: Rocephin (cefTRIAXone) 1 grams Route: IV; Rate: per protocol; Site: right forearm;bp 15:55 Follow up: IV Status: Completed infusion; IV Intake: 100ml bp 10:00 Drug: NS 0.9% 1000 ml Route: IV; Rate: 125 ml/hr; Site: right forearm; bp 15:55 Follow up: IV Status: Infusion continued upon transfer bp Medication: 15:54 VIS not applicable for this client. bp Intake: 15:55 IV: 100ml; Total: 100ml. bp Outcome: 07:44 ER care complete, transfer ordered by . kdr 15:54 Transferred by ground EMS to [facility], Transfer form completed. bp Note: REPORT TO NELI JOEL 15:54 Condition: stable 15:54 Instructed on the need for transfer. 16:53 Patient left the ED. iw Signatures: Dispatcher [employer] EDMS Lauri Abel MD MD cha Rittger, Kevin, MD MD kdr Ballard, Brenda, RN RN bb Williams, Irene, RN RN iw Peltier, Brian, RN RN bp Botello, Elizabeth eb Paniauga Allie bp1 Slawson, Rolando, RN RN as6 Arti Sanders RN RN jh6 Edie Bartholomew RN ha1
[2022-03-08] MEDS ORDERED: SMZ./TMP. 800/160 MG TABLET ONE (08:02)
[2022-03-08 08:12] LABS: Urine Blood 3+ (Negative); Urine Glucose 2+ (Negative); Urine Protein Negative (Negative); Urine Specific Gravity 1.015 (1.005-1.030); Urine pH 5.5 (5.0-7.0)
[2022-03-08] MEDS ORDERED: INSULIN GLARGINE 100 UNIT/ML SQ ONE (10:01)
[2022-03-08] MEDS ORDERED: NA CHLORIDE 0.9% 100 ML ONE (10:01)
[2022-03-08] MEDS ORDERED: INSULIN -REGULAR HUMAN 50 UNIT/0.5 ML ML ONE (10:01)
[2022-03-08] MEDS ORDERED: CEFTRIAXONE 1000 MG/VIAL ONE (10:01)
[2022-03-08] MEDS ORDERED: NA CHLORIDE 0.9% 1,000 ML ONE (10:01)
[2022-03-08 17:12] VITALS: TEMP 98.6
[2022-03-08 17:23] VITALS: BP 106/79; O2SAT 98
--- NOTE | 2022-03-09 09:53 | EKG ---
Test Date: 2022-03-08 Test Time: 06:36:26 Accounting Analyst: MEASUREMENT RESULTS: Intervals: Rate: 83 SC: 180 QRSD: 88 QT: 360 QTc: 423 [place]: P: 47 SC: 180 QRS: -29 T: 82 INTERPRETIVE STATEMENTS: Normal sinus rhythm with sinus arrhythmia Normal ECG Compared to ECG 11/06/2021 09:40:03 Sinus tachycardia no longer present ST (T wave) deviation no longer present Myocardial infarct finding no longer present Electronically Signed On 03-09-22 09:48:53 CDT by Shubham Wilkerson
== END 2022-03-08 16:53 | disposition short-term general hospital (02) ==
LOC: ER 05:43
DX: I22.2 Subsequent non-ST elevation (NSTEMI) myocardial infarction (principal); I21.9 Acute myocardial infarction, unspecified; R31.0 Gross hematuria; E11.9 Type 2 diabetes mellitus without complications; I10 Essential (primary) hypertension; I48.91 Unspecified atrial fibrillation; Z79.01 Long term (current) use of anticoagulants; Z79.4 Long term (current) use of insulin; Z95.818 Presence of other cardiac implants and grafts; Z20.822 Contact with and (suspected) exposure to COVID-19
CPT/HCPCS: 96365; 93005; 87088; 85025; 87086; 80048; 36415; 81003; 84484 ×2; 83880; 71045; 96375; 96372; 99285; 96366; U0003; J1815; J7030

== ENCOUNTER 2022-05-04 21:14 | Inpatient (IN) | payer OTHER ==
--- OUTSIDE RECORDS SUMMARY | 2022-05-04 21:31 | XMS REPORT | Continuity of Care Document ---
:1945 Author Organization [facility] t Address [address] [place] [address] Care Team Providers Name Role Phone Asked, No Pcp Primary Care Physician Unavailable Asha Lomeli Attending Clinician Unavailable KATELYN MOLINA Attending Clinician Unavailable SRIDHAR_LEO_Adrien_Rodney Attending Clinician Unavailable Katelyn Molina MD Attending Clinician Adelaide Palomino MD Attending Clinician ADELAIDE PALOMINO Attending Clinician Unavailable Katina Jurado Attending Clinician [phone] Elke Stevens MD Attending Clinician Julito Espino Attending Clinician Darrell Huang NP, Viv Attending Clinician MD ELKE STEVENS Attending Clinician Unavailable Provider, Unknown Attending Clinician Unavailable Christiano Gordon DPM Attending Clinician Allyn WESTFALL, Ernesto Awad Attending Clinician Daryn Hernandez Attending Clinician Unavailable Enedina Cantrell Attending Clinician Unavailable TANESHA MOLINA Attending Clinician Unavailable RAZA KING Attending Clinician Unavailable NORA DESAI Attending Clinician Unavailable ANGELINE GARDNER Attending Clinician Unavailable KATELYN MOLINA Admitting Clinician Unavailable [email or web address]_[email or web address]_A Admitting Clinician Unavailable ADELAIDE PALOMINO Admitting Clinician Unavailable ELKE STEVENS Admitting Clinician Unavailable MD ELKE STEVENS Admitting Clinician Unavailable Daryn Hernandez Admitting Clinician Unavailable Physician, No Primary or Family Admitting Clinician UnavailWILIAM Hillman Admitting Clinician Unavailable ANGELINE GARDNER Admitting Clinician Unavailable Payers Payer Name Policy Type Policy Number Effective Date Expiration Date S jana MEDICARE A B [id number] 2009 00:00:00 [employer] INDEMNITY [id number] 2016 00:00:00 [place]IC[place] B-[place]: [id number] 2009 [employer] 00:00:00 [employer] (MEDICARE [id number] SUPPLEMENT) CDC REVIEW [id number] 2020 00:00:00 Problems Condition Condition Condition Status Onset Resolution Last Treating Co mments Source Name Details Category Date Date Treatment Clinician Date Acute on Acute on Disease [facility] 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 00 Center and and diastolic diastolic CHF, NYHA CHF, NYHA class 4 class 4 NSTEMI NSTEMI Disease Active [facility] (non-[facility] (non-ST 03-09 [facility] elevated elevated 00:00: Medica l myocardial myocardial 00 Ce nter infarction infarction ) ) Diastolic Diastolic Disease Active [facility] CHF, acute CHF, acute 03-09 [facility] kes on chronic on chronic 00:00: Me dical 00 Center Preop Preop Disease Active 2021-0 [facility] testing testing [facility] [facility] 00:00: Hospita 00 l CAD CAD Disease Active [facility] (coronary (coronary 6-14 [facility] artery artery 00:00: Medical disease) disease) Center CAD, CAD, Disease Active [facility] multiple multiple 4-07 [facility] vessel vessel 00:00: [facility] Center No known No known Disease [facility] active active College problems problems of Medicin e Acute Acute Disease Active [facility] respirator respirator Heather kes y y Medical insufficie insufficie Ce nter ncy ncy Acute Acute Disease Active [facility] blood loss blood loss Heather k[facility] anemia anemia [facility] Hyperglyce Hyperglyce Disease Active [facility] Allergies, Adverse Reactions, Alerts Allergy Allergy Status Severity Reaction(s) Onset Inactive Treating Comm ents Source Name Type Date Date Clinician No Known DA Active U 2019-09 [facility] Allergie 2-22 Clear s 00:00: Horowitz 00 [facility] No Known DA Active U 2019-09 [facility] Allergie 2-22 Clear s 00:00: Horowitz [address] [place] [address] NO KNOWN Allergy Active [facility] Family History Family Member Diagnosis Comments Start Date Stop Date Source Natural father Heart disease [facility] Natural mother Heart [facility] Social History Social Habit Start Date Stop Date Quantity Comments Source History [facility] History of tobacco Current smoker Me thodist use Hospital History [facility] [employer] Alcohol Frequency Hospita l History [facility] [employer] Alcohol Std Drinks Hospit al History [facility] [employer] Alcohol Binge Hospital History [facility] 2022-03-09 2022-03-[address] [facility] Transport Med 00:00:00 00:00:[address] History [facility] 2022-03-09 2022-03-[address] [facility] Housing Unable to 00:00:00 00:00:00 Medical Center Pay History [facility] 2022-03-09 2022-03-[address] [facility] Housing Places 00:00:00 00:00:00 Medical Ce nter Lived History [facility] 2022-03-09 2022-03-[address] [facility] Housing Homeless 00:00:00 00:00:00 Medical Center Last Year Alcohol intake 2022-03-08 2022-03-08 [facility]00 of [facility] (finding) Alcohol Comment 2021-04-12 2021-04-12 2-4 drinks per [facility] dist 00:00:00 00:00:00 [facility] Tobacco Comment 2021-04-05 2021-04-05 quit 1978 [employer] [facility] 00:00:00 00:00:00 Hospital Cigarettes smoked 2020-11-19 2020-11-19 [facility] (pack per 00:00:00 00:00:00 Medicin e day) - Reported Cigarette 2020-11-19 2020-11-19 [facility] of pack-years 00:00:00 00:00:00 Medicine Tobacco use and 2019-12-15 2019-12-[address] [facility] [address] Heather kes exposure 00:00:00 00:00:00 [facility] Sex Assigned At [birth year] [facility] 00:00:00 00:00:00 [facility] Smoking Status Start Date Stop Date Source Former smoker 2019-12-15 00:00:00 2019-12-15 00:00:[address] [facility] [address] [facility] Medications Ordered Filled Start Stop Current Ordering Indication Dosage Frequency Signature Comments Components Source Medication Medication Date Date Medication? Clinician (SIG) Name Name atorfaiza 2022- Yes atheroscler 80mg QD Take [address] n (LIPITOR) 03-10 otic tablet (80 L ukes 80 MG 00:00: 23:59 cardiovascu mg total) Medical tablet 00 :00 lar disease by mouth Ce nter daily. metoprolol 2022- Yes 100mg QD Take [address] succinate 03-10 tablet [facility] (TOPROL-XL) 00:00: 23:59 (100 mg Me dical 100 MG 24 00 :00 total) by Cente r hr tablet mouth daily. nitroglycer Yes acute .4mg Place 0.[address] in 03-09 episode of mg under [facility] (NITROSTAT) 15:17: anginal the tongue Medical 0.4 MG SL 10 pain every 5 Center tablet (five) minutes as needed for Chest pain Put 1 pill under tongue every 5min as needed for chest pain.No more than 3 doses in 15min.Call 911 if pain is unrelieved 5min after 1st dose . liraglutide Yes type 2 1.8mg QD Inject 1.[address] 0.6 mg/0.1 03-09 diabetes mg [facility] mL (18 mg/3 15:17: mellitus subcutaneo Medical mL) PnIj 10 usly daily Cente r . metFORMIN Yes type 2 1000mg Q.5D Take 1,[address] (GLUCOPHAGE 03-09 diabetes mg by Elvira es -XR) 500 MG 15:17: mellitus mouth 2 Medical 24 hr 10 (two) Center tablet times daily. lansoprazol Yes gastroesoph 30mg QD Take [address] [facility] e 03-09 ageal by mouth [facility] (PREVACID) 15:17: reflux nightly. edical 30 MG 10 disease Center capsule empaglifloz Yes 25mg QD Take [address] in 03-09 by mouth [facility] (JARDIANCE) 15:17: daily. Medi radha 25 mg 10 Center tablet abatacept Yes Q28D Inject [facility] (ORENCIA) 03-09 intravenou Luke s infusion 15:17: sly every Medi radha 10 28 days. [place] cholecalcif Yes vitamin D 1000U QD Take 1,[address] cooper, 03-09 deficiency Units by Luke s vitamin D3, 15:17: mouth Medic al 25 mcg 10 daily. [place] (1,000 unit) capsule ranolazine Yes prevention 500mg Q.5D Take [address] (RANEXA) 03-09 of anginal mg by Luke s 500 MG 12 15:17: pain in mouth 2 Me dical hr tablet 10 coronary (two) Cente r artery times disease daily. apixaban Yes prevention 5mg Q.5D Take [address] (Eliquis) 5 03-09 of venous by mouth 2 [facility] mg Tab 15:17: thromboembo (two) Med ical tablet 10 lism times Center recurrence daily. rosuvastati Yes hyperlipide 10mg QD Take [address] n (CRESTOR) 03-09 galen by mouth Luke s 10 MG 15:17: daily. Medical tablet 10 Center spironolact Yes pulmonary 25mg QD Take [address] one 7- edema due by mouth [facility] (ALDACTONE) 15:17: to chronic daily. Medical 25 MG 10 heart [place] tablet failure bumetanide Yes hypertensio .5mg Take 0.[address] (BUMEX) 0.5 03-09 n mg by [facility] MG tablet 15:17: mouth Medical 10 every Center other day. insulin Yes 45U QD Inject 45 [facility] glargine - Units [place] (LANTUS, 15:17: subcutaneo Med ical SEMGLEE) 10 100 unit/mL nightly injection Use as directed . levothyroxi Yes 50ug/d QD Take [address] ne 03-09 mcg/day by [place] (Tirosint) 15:17: mouth Medica l 50 mcg Cap 10 daily. [place] cyanocobala Yes prevention 1000ug QD Take 1,[address] min, 03-09 of vitamin mcg by [place] vitamin 15:17: B12 mouth Medical B-12, 10 deficiency daily. [place] (vitamin B-12) 1000 MCG tablet metoprolol 2021- No prevention 100mg QD Take [address] tartrate 03-09 of anginal mg by Elvira es (LOPRESSOR) 12:45: 00:00 pain in mouth M edical 100 MG 46 :00 coronary daily. [place] tablet artery disease isosorbide 2022- Yes 30mg QD Take [address] mononitrate 03-09 tablet (30 L ukes (IMDUR) 30 00:00: 23:59 mg total) M edical MG 24 hr 00 :00 by mouth Center tablet daily. cefdinir 2021- No 300mg Take 1 [facility] (OMNICEF) 03-09 07-08 capsule [facility] 300 MG 00:00: 23:59 (300 mg Medical capsule 00 :00 total) by Center mouth every 12 (twelve) hours for 7 days. benazepriL 2021- No hypertensio 20mg QD Take [address] (LOTENSIN) 6-30 06-30 n by mouth Heatherke s 20 MG 22:10: 00:00 daily. Medical tablet 51 :00 [place] rosuvastati 2021- No atheroscler 20mg QD Take [address] n (CRESTOR) 03-08-30 otic by mouth Elvira es 40 MG 22:07: 00:00 cardiovascu daily . M edical tablet 19 :00 lar disease [place] insulin 2021- No type 2 100U QD Inject [address] glargine 03-08-30 diabetes Units [facility] (LANTUS) 22:05: 00:00 mellitus subcutaneo Medical 100 unit/mL 34 :00 usly every Ce nter injection morning Use as directed . cholecalcif Yes 1000U QD Take 1,000 Methodi [...] capsule 04 daily with l dinner. insulin 2021-0 Yes QD Inject Methodi GLARGINE 04-[address] (LANTUS) 13:40: skin Hospita 100 unit/mL 04 nightly. l injection (vial) liraglutide Yes 1.8U/[o Inject 1.8 [facility] (VICTOZA 04-14 z_av]/d Units/oz/d st 2-CAR SUBQ) 13:40: ay under Ho spita 04 the skin. l vit B Yes Take by Methodi complex 8- mouth. st no.12/niaci 13:40: Hospit a n,B3, 04 l (VITAMIN B COMPLEX NO.12-NIACI N ORAL) empaglifloz Yes 25mg QD Take 25 mg Methodi in [address] (Jardiance) 13:40: daily. Hosp [...] Hospita enteric 04 l coated tablet ranolazine 2021-0 Yes 500mg Q.5D Take 500 Me thodi (RANEXA) 8-[address] 500 MG 12 13:40: mouth 2 Hospi ta hr ER 04 (two) l tablet times a day. apixaban 0 Yes Q.5D Take by Method i (ELIQUIS) 5 -[address] mg tablet 13:40: (two) Hospita 04 times a l day. rosuvastati Yes 10mg QD Take 10 mg Methodi n (CRESTOR) -[address] 10 mg 13:40: daily. [...] 25mg QD Take 25 mg Methodi in [address] (Jardiance) 13:40: daily. Hosp ann 25 mg 04 l tablet metFORMIN Yes 500mg Q.5D Take 500 Met hodi (GLUCOPHAGE 8-[address] ) 500 mg 13:40: mouth 2 Hospit a tablet 04 (two) l times a day with meals. ferrous 0 Yes 325mg QD Take 325 Metho di [...] dinner. insulin Yes QD Inject Methodi GLARGINE 8-[address] (LANTUS) 13:40: skin Hospita [...] 30mg QD Take 30 mg Methodi e [address] (PREVACID) 13:40: daily. Hospi ta 30 MG 04 l capsule levothyroxi Yes 50ug QD Take 50 Met hodi ne sodium 8-[address] (Tirosint) 13:40: mouth Hospit a 50 mcg 04 daily. l capsule metoprolol 2020- No 100mg QD Take 100 M ethodi succinate 04-14- mg by st XL 13:40: 00:00 mouth [...] daily. Medicin e Metoprolol Yes Take by [facility] or Succinate 3-02 mouth. College 100 MG CS24 20:15: of 29 Medicin e rosuvastati Yes Take by Selma radha n (CRESTOR) 3-02 mouth. Colleg e 20 MG 20:15: of tablet 29 Medicin e nitroglycer Yes .4mg Place 0.4 B aylor in 3-02 mg under College (NITROSTAT) 20:15: the of 0.4 mg 29 tongue. Medicin sublingual e tablet sodium Yes 500mg Inject 500 [facility] or chloride 3-02 mg into [place] 0.9 % SOLN 20:15: the vein of 100 mL with 29 once. Medicin abatacept e 250 MG SOLR 500 mg VITAMIN D Yes Take by [facility] OR 3-02 mouth. [place] 20:15: of 29 Medicin e insulin Yes 100U Inject 100 [facility] or glargine 2-04 Units into [facility] ge (LANTUS) 18:20: the skin. of 100 UNIT/ML 51 Medicin injection e irbesartan- Yes 1{tbl} Take 1 Ba ylor hydrochloro 2-04 Tablet by Col rodriguez thiazide 18:20: mouth. of (AVALIDE) 51 Medicin 300-12.5 MG e per tablet rosuvastati Yes Take by [facility] radha n (CRESTOR) 2-04 mouth. Colleg e 20 MG 18:20: of tablet 51 Medicin e nitroglycer Yes .4mg Place 0.4 B a[place]or in 2-04 mg under College (NITROSTAT) 18:20: the of 0.4 mg 51 tongue. Medicin sublingual e tablet sodium Yes 500mg Inject 500 [facility] or chloride 2-04 mg into College 0.9 % SOLN 18:20: the vein of 100 mL with 51 once. Medicin abatacept e 250 MG SOLR 500 mg VITAMIN D Yes Take by [facility] OR 2-04 mouth. College 18:20: of 51 Medicin e Liraglutide 2021-0 Yes Inject [facility] (VICTOZA) 2-04 into the Colleg e 18 MG/3ML 18:19: skin of SOPN 03 daily. Medicin e Metoprolol Yes Take by [facility] or Succinate 10-13 mouth. [place] 100 MG CS24 18:19: of Medicin e benazepril 0 2020- No 20mg Take 20 mg Román (LOTENSIN) 04 - by mouth. Col lege 20 MG 18:17: 00:00 of tablet 24 :00 Medicin e ELIQUIS 5 0 Yes [facility] MG TABS 10-11 [place] 00:00: of 00 Medicin e ELIQUIS 5 0 Yes [facility] MG TABS 10-11 [place] 00:00: of 00 Medicin e bumetanide 0 Yes Román (BUMEX) 0.5 1-26 College MG tablet 00:00: of 00 Medicin e JARDIANCE 0 Yes [facility] 25 MG TABS 10-04 [place] 00:00: of 00 Medicin e Tamsulosin 0 Yes Román HCl 0.4 MG 10-04 [place] CAPS 00:00: of 00 Medicin e bumetanide 0 Yes [facility] (BUMEX) 0.5 1-26 College MG tablet 00:00: of 00 Medicin e JARDIANCE 0 Yes Román 25 MG TABS 10-04 [place] 00:00: of 00 Medicin e Tamsulosin 0 Yes [facility] HCl 0.4 MG 10-04 [place] CAPS 00:00: of 00 Medicin e Ranolazine 2019-09 Yes [facility] 500 MG TB12 10-11 [place] 00:00: of 00 Medicin e lansoprazol 2019-09 Yes Román e 10-11 [place] (PREVACID) 00:00: of 30 MG 00 Medicin capsule e Ranolazine 2019-09 Yes [facility] 500 MG TB12 10-11 [place] 00:00: of 00 Medicin e lansoprazol 2019-09 Yes [facility] e 10-11 [place] (PREVACID) 00:00: of 30 MG 00 Medicin [...] Medical mL) PnIj 42 usly daily Kim dykes . rosuvastati Yes atheroscler 20mg QD Take [address] n (CRESTOR) 9-24 otic by mouth Luke s 40 MG 12:33: cardiovascu daily . Me dical tablet 42 lar disease Center metFORMIN 2019-0 Yes type 2 1000mg Q.5D Take 1,[address] (GLUCOPHAGE 9- diabetes mg by Elvira es -XR) 500 [...] I St glargine 9-24 diabetes Units [facility]ukes (LANTUS) 12:33: mellitus subcutaneo Medical 100 unit/mL 42 usly every Ce nter injection morning Use as directed . benazepriL Yes hypertensio 20mg QD Take [address] (LOTENSIN) 9-24 n by mouth [facility]ukes 20 MG 12:33: daily. Medical tablet 42 Center empaglifloz 0 Yes 25mg QD Take [address] in 9-24 by mouth [facility]ukes (JARDIANCE) 12:33: daily. Medi radha 25 mg 42 Center tablet abatacept 2019-0 Yes Q28D Inject [facility] (ORENCIA) 9-24 intravenou Luke s infusion 12:33: sly every Medi radha 42 28 days. Center nitroglycer 2019-[address] 0.[address] [...] Medical mL) PnIj 42 usly daily Kim dykes . rosuvastati 0 Yes atheroscler 20mg QD Take [...] I St glargine 9-24 diabetes Units [facility]ukes (LANTUS) 12:33: mellitus subcutaneo Medical 100 unit/mL 42 usly every Ce nter injection morning Use as directed . benazepriL 0 Yes hypertensio 20mg QD Take [address] (LOTENSIN) 9-24 n by mouth [facility]ukes 20 MG 12:33: daily. Medical tablet 42 Center empaglifloz 2019-0 Yes 25mg QD Take [address] in 9-24 by mouth [facility]ukes (JARDIANCE) 12:33: daily. Medi radha 25 mg 42 Center tablet abatacept 2019-0 Yes Q28D Inject [facility] (ORENCIA) 9-24 intravenou Luke s infusion 12:33: sly every Medi radha 42 28 days. Center tamsulosin 2019-0 Yes .4mg QD Take 0.[address] [facility] (FLOMAX) 9-13 mg by [facility]ukes 0.4 mg Cap 00:00: mouth Medica l 24 hr 00 daily. Center capsule tamsulosin 2020-0 Yes .4mg QD Take 0.[address] (FLOMAX) 9-13 mg by [facility]ukes 0.4 mg Cap 00:00: mouth Medica l 24 hr 00 daily. Center capsule tamsulosin 2020-0 Yes .4mg QD Take 0.[address] (FLOMAX) 9-13 mg by [facility]ukes 0.4 mg Cap 00:00: mouth Medica l 24 hr 00 daily. Center capsule metoprolol 2020- No 50mg Q.5D Take [...] 00 :00 by mouth Center daily. clopidogrel 2020- No 75mg Take 75 mg Román (PLAVIX) [...] 500mg Q.5D Take [address] (RANEXA) 4-09 04-09 tablet [facility] 500 MG 12 00:00: 23:59 (500 mg Medi radha hr tablet 00 :00 total) by Cente r mouth 2 (two) times daily. Immunizations Ordered Immunization Filled Immunization Date Status Commen ts Source Name Name RUTHANN FLOYD-Holly MRNA 2020-12-14 Completed Meth odist VACCINATION 00:00:00 [facility] PFIZER COVID-19 MRNA 2020-12-14 Completed Meth odist VACCINATION 00:00:00 [facility] PFIZER COVID-19 MRNA 2020-12-14 Completed Meth odist VACCINATION 00:00:00 [facility] PFIZER COVID-19 MRNA 2020-11-23 Completed Meth odist VACCINATION 00:00:00 [facility] PFIZER COVID-19 MRNA 2020-11-23 Completed Meth odist VACCINATION 00:00:00 [facility] PFIZER COVID-19 MRNA 2020-11-23 Completed Meth odist VACCINATION 00:00:00 Hospital Vital Signs Vital Name Observation Time Observation Value Comments Source HEIGHT 2020-02-03 00:00:00 182.9 cm WEIGHT 2020-02-03 00:00:00 95.255 kg WEIGHT 2022-03-09 04:31:00 81.557 kg WEIGHT 2022-03-09 04:31:00 81.557 kg WEIGHT 2022-03-09 04:31:00 81.557 kg Systolic blood 2020-11-08 20:15:00 161 mm[Hg] [facility] pressure Medicine Diastolic blood 2020-11-08 20:15:00 84 mm[Hg] [facility] Medicine Heart rate 2020-11-08 20:15:00 99 /min [facility] Body height 2020-11-08 20:15:00 177.8 cm [facility] Body weight 2020-11-08 20:15:00 79.833 kg [facility] BMI 2020-11-08 20:15:00 25.25 kg/m2 [facility] Systolic blood 2020-10-13 17:37:00 131 mm[Hg] [facility] pressure Medicine Diastolic blood 2020-10-13 17:37:00 75 mm[Hg] [facility] Medicine Heart rate 2020-10-13 17:37:00 72 /min [facility] Body height 2020-10-13 17:37:00 177.8 cm [facility] Body weight 2020-10-13 17:37:00 79.833 kg [facility] BMI 2020-10-13 17:37:00 25.25 kg/m2 [facility] WEIGHT 2020-06-02 00:00:00 91.627 kg WEIGHT 2020-04-06 00:00:00 91.627 kg HEIGHT 2020-03-08 00:00:00 180 cm HEIGHT 2020-02-21 00:00:00 180 cm WEIGHT 2020-02-21 00:00:00 94.983 kg HEIGHT 2020-02-21 00:00:00 180 cm WEIGHT 2020-02-21 00:00:00 94.983 kg Heart rate 2022-03-09 12:13:00 77 /min [facility] Systolic blood 2022-03-09 12:08:00 94 mm[Hg] [facility] Diastolic blood 2022-03-09 12:08:00 58 mm[Hg] [facility] Body temperature 2022-03-09 12:08:00 36.56 [facility] Respiratory rate 2022-03-09 12:08:00 16 /min [facility] Oxygen saturation in 2022-03-09 12:08:00 95 /min [facility] Arterial blood by Medical Ce nter Pulse oximetry Body weight 2022-03-09 04:31:00 81.557 kg [facility] BMI 2022-03-09 04:31:00 25.17 kg/m2 [facility] Body temperature 2021-04-14 17:27:20 37.17 Carmita [facility] Respiratory rate 2021-04-14 17:27:20 18 /min [facility] Oxygen saturation in 2021-04-14 17:27:20 93 /min [facility] Arterial blood by Pulse oximetry Systolic blood 2021-04-14 17:27:20 132 mm[Hg] Method ist [facility] pressure Diastolic blood 2021-04-14 17:27:20 66 mm[Hg] [facility] pressure Heart rate 2021-04-14 17:27:20 83 /min [facility] Body height 2021-04-12 11:47:00 180.3 cm [facility] Body weight 2021-04-12 11:47:00 84.823 kg [facility] BMI 2021-04-12 11:47:00 26.08 kg/m2 [facility] Procedures Procedure Date / Time Performing Clinician Source Performed POCT-GLUCOSE METER 2022-03-09 11:57:00 Candelario [facility] APTT 2022-03-09 08:58:[facility] POCT-GLUCOSE METER 2022-03-09 08:38:00 [facility] HEMOGLOBIN A1C 2022-03-09 05:47:00 [facility] BASIC METABOLIC PANEL (7) 2022-03-09 05:47:00 Adelaide Palomino [facility] CBC W/PLT COUNT & AUTO 2022-03-09 05:47:00 Candelario [facility] MAGNESIUM 2022-03-09 05:47:00 [facility] TSH/FREE T4 IF INDICATED 2022-03-09 05:47:00 Adelaide Palomino [facility] CBC W/PLT COUNT & AUTO 2022-03-09 05:47:00 Candelario [facility] APTT 2022-03-09 02:37:00 Candelario [facility] HIGH SENSITIVITY TROPONIN 2022-03-09 00:38:00 Adelaide Palomino [facility] URINE CULTURE 2022-03-08 23:13:00 [facility] URINALYSIS W/ REFLEX 2022-03-08 23:13:00 [facility] POCT-GLUCOSE METER 2022-03-08 21:04:00 Candelario [facility] APTT 2022-03-08 20:01:00 [place], [facility] COMPREHENSIVE METABOLIC 2022-03-08 20:01:00 Adelaide Palomino [facility] CBC (HEMOGRAM ONLY) 2022-03-08 20:01:00 Adelaide Palomino [facility] B-TYPE NATRIURETIC FACTOR 2022-03-08 20:01:00 Adelaide Palomino [facility] (BNP) [facility] ECG 12-LEAD 2022-03-08 19:42:04 Unknown, Hl7 [facility] ECG 12-LEAD 2022-03-08 19:42:04 Unknown, Hl7 [facility] HIGH SENSITIVITY TROPONIN 2022-03-08 18:38:00 Alfonzo Gee [facility] POC GLUCOSE 2021-04-14 12:28:00 Elke Stevens ospital BASIC METABOLIC PANEL 2021-04-14 11:04:00 [facility] ESTIMATED GFR 2021-04-14 11:04:00 [facility] HC COMPLETE BLD COUNT 2021-04-14 08:20:00 Hilda [facility] W/AUTO DIFF BASIC METABOLIC PANEL 2021-04-14 08:20:00 Hilda [facility] MAGNESIUM LEVEL 2021-04-14 08:20:00 [facility] ESTIMATED GFR 2021-04-14 08:20:00 Elke Stevens ospital POC GLUCOSE 2021-04-13 22:15:00 Elke Stevens ospital BASIC METABOLIC PANEL 2021-04-13 20:54:[address] [facility] 2021-04-13 20:54:00 [facility] Patrese THYROID STIMULATING 2021-04-13 20:54:00 [facility] HORMONE Patrese T4, FREE 2021-04-13 20:54:00 [facility]FR 2021-04-13 20:54:00 Deneen Wilson [facility] Patrese ECG 12-LEAD 2021-04-13 19:21:14 TremaineNitza [facility] POC GLUCOSE 2021-04-13 17:32:00 Elke Stevens ospital HC COMPLETE BLD COUNT 2021-04-13 08:54:00 Elke Stevens [facility] W/AUTO DIFF BASIC METABOLIC PANEL 2021-04-13 08:54:00 Elke Stevens [facility] B NATRIURETIC PEPTIDE 2021-04-13 08:54:00 TremaineNitza [facility] MAGNESIUM LEVEL 2021-04-13 08:54:00 [facility] ESTIMATED GFR 2021-04-13 08:54:00 [facility] P[facility] GLUCOSE 2021-04-12 22:58:00 [facility] XR PELVIS 1 OR 2 VW 2021-04-12 15:14:52 Elke Stevens [facility] POC GLUCOSE 2021-04-12 15:06:00 [facility] OR FL > 1 HOUR 2021-04-12 14:51:00 [facility] XR PELVIS 1 OR 2 VW 2021-04-12 14:30[facility]00 [facility] 2021-04-12 13:09:00 Julito Espino spital ENDOTRACHEAL AIRWAY ARTHROPLASTY, HIP, TOTAL, 2021-04-12 13:00:00 Elke Stevens [facility] ANTERIOR APPROACH ABO AND RH CONFIRMATION 2021-04-12 11:40:00 Elke Stevens [facility] POC GLUCOSE 2021-04-12 10:55:00 [facility] COVID-19 QUALITATIVE 2021-04-11 13:16:00 Elke Stevens [facility] RT-PCR URINE CULTURE 2021-04-05 21:20:00 [facility] HC COMPLETE BLD COUNT 2021-04-05 20:01:00 Elke Stevens [facility] W/AUTO DIFF COMPREHENSIVE METABOLIC 2021-04-05 20:01:00 Elke Stevens [facility] PANEL PROTHROMBIN TIME WITH INR 2021-04-05 20:01:00 Elke Stevens [facility] PARTIAL THROMBOPLASTIN 2021-04-05 20:01:00 Elke Stevens [facility] TIME (PTT) URINALYSIS SCREEN AND 2021-04-05 20:01:00 Elke Stevens [facility] MICROSCOPY, WITH REFLEX TO CULTURE TYPE AND SCREEN 2021-04-05 20:01:00 [facility] HEMOGLOBIN A1C 2021-04-05 20:01:00 [facility] 2021-04-05 20:01:00 [facility] ECG PRE/POST OP 2021-04-05 19:57:27 [facility] [id number] 2020-09-07 00:00:00 WHEED [facility] [id number] 2020-09-07 00:00:00 WHEED [facility] [id number] 2020-09-07 00:00:00 WHEED [facility] [id number] 2020-09-01 00:00:00 SINSI [facility] [id number] 2020-08-30 00:00:00 RADMO [facility] [id number] 2020-08-30 00:00:00 [facility] Plan of Care Planned Activity Planned Date Details Comments Source Future Scheduled 2022-05-[address] [facility] Test 00:00:00 (#1) [code = Medical Center INFLUENZA VACCINE (#1)] Future Scheduled 2022-04-26 HEPATITIS B [facility]ACCINES [facility] 04:45:36 (1 of 3 - 3-dose Hospital series) [code = HEPATITIS B VACCINES (1 of 3 - 3-dose series)] Future Scheduled 2022-04-26 [facility] Test 04:45:36 screening Hospital (procedure) [code = [id number]] Future Scheduled 2022-04-26 SHINGLES VACCINES (1 [facility] 04:45:36 of 2) [code = Hospital SHINGLES VACCINES (1 of 2)] Future Scheduled 2022-04-26 65+ PNEUMOCOCCAL [facility] Test 04:45:36 VACCINE (2 - PCV) Hospital [code = 65+ PNEUMOCOCCAL VACCINE (2 - PCV)] Future Scheduled 2022-04-26 COVID-19 VACCINE (3 [facility] Test 04:45:36 - Booster for Pfizer Hospita l series) [code = COVID-19 VACCINE (3 - Booster for Pfizer series)] Future Scheduled 2022-04-26 INFLUENZA VACCINE [facility] Test 04:45:36 [code = INFLUENZA Hospital VACCINE] Future Scheduled 2021-09-13 [facility] Test 11:21:21 screening Hospital (procedure) [code = 370983389] Future Scheduled 2021-09-13 SHINGLES VACCINES [facility] Test 11:21:21 (#1) [code = Hospital SHINGLES VACCINES (#1)] Future Scheduled 2021-09-13 INFLUENZA VACCINE [facility] Test 11:21:21 [code = INFLUENZA Hospital VACCINE] Future Scheduled 2021-09-13 COVID-19 VACCINE (3 [facility] Test 11:21:21 - Booster for Pfizer Hospita l series) [code = COVID-19 VACCINE (3 - Booster for Pfizer series)] Future Scheduled 2021-09-13 [facility] C [facility] Test 11:21:21 screening Hospital (procedure) [code = [id number]] Future Scheduled 2021-09-13 SHINGLES VACCINES Method [facility] Test 11:21:21 (#1) [code = Hospital SHINGLES VACCINES (#1)] Future Scheduled 2021-09-13 INFLUENZA VACCINE [facility] Test 11:21:21 [code = INFLUENZA Hospital VACCINE] Future Scheduled 2021-09-13 COVID-19 VACCINE (3 [facility] Test 11:21:21 - Booster for Pfizer Hospita l series) [code = COVID-19 VACCINE (3 - Booster for Pfizer series)] Future Scheduled 2021-09-[address] [facility] Test 00:00:00 (12+) [code = Medical Center DEPRESSION SCREENING (12+)] Future Scheduled 2021-09-09 FALLS RISK SCREENING [facility] Test 00:00:00 [code = FALLS RISK Medical C enter SCREENING] Future Scheduled 2021-09-[address] [facility] Test 00:00:00 (12+) [code = Medical Center DEPRESSION SCREENING (12+)] Future Scheduled 2021-09-09 FALLS RISK SCREENING [facility] Test 00:00:00 [code = FALLS RISK Medical C enter SCREENING] Future Scheduled 2021-09-[address] [facility] Test 00:00:00 (12+) [code = Medical Center DEPRESSION SCREENING (12+)] Future Scheduled 2021-09-09 FALLS RISK SCREENING [facility] Test 00:00:00 [code = FALLS RISK Medical C enter SCREENING] Future Scheduled 2021-05-16 COVID-19 VACCINE ([address] [facility] Test 00:00:00 - Booster for Pfizer [facility] series) [code = COVID-19 VACCINE (3 - Booster for Pfizer series)] Future Scheduled 2021-05-[address] [facility] Test 00:00:00 (#1) [code = [facility] INFLUENZA VACCINE (#1)] Future Scheduled 2021-05-[address] [facility] Test 00:00:00 (#1) [code = [facility] INFLUENZA VACCINE (#1)] Future Scheduled 2015-06-21 PNEUMOCOCCAL [address]+ [address] [facility] Test 00:00:00 (2 - PCV) [code = Medical nter PNEUMOCOCCAL 65+ YRS (2 - PCV)] Future Scheduled 2010-07-[address] [...] no IPPE)] Future Scheduled 1994 SHINGLES VACCINES ([address] [facility] Test 00:00:00 of 2) [code = Medical Center SHINGLES VACCINES (1 of 2)] Future Scheduled 1994 SHINGLES VACCINES ([address] [facility] Test 00:00:00 of 2) [code = Medical Center SHINGLES VACCINES (1 of 2)] Future Scheduled 1994 SHINGLES VACCINES ([address] [facility] Test 00:00:00 of 2) [code = Medical Center SHINGLES VACCINES (1 of 2)] Future Scheduled [...] C SCREENING] Future Scheduled 1956 COVID-19 VACCINE (1) [facility] Test 00:00:00 [code = COVID-[address] VACCINE (1)] Future Scheduled 1956 COVID-19 VACCINE (1) [facility] Test 00:00:00 [code = COVID-[address] VACCINE (1)] Future Scheduled COVID-19 Vaccine [facility] Evaluation [code = Medicine COVID-19 Vaccine Evaluation] Future Scheduled TETANUS SHOT (ADULT) [facility] Test [code = TETANUS SHOT Medicin e (ADULT)] Future Scheduled BMI FOLLOW UP PLAN [facility] of Test [code = BMI FOLLOW Medicine UP PLAN] Future Scheduled HEPATITIS C [facility] of Test SCREENING [code = Medicine HEPATITIS C SCREENING] Future Scheduled ZOSTER VACCINE (1 of [facility] of Test 2) [code = ZOSTER Medicine VACCINE (1 of 2)] Future Scheduled MEDICARE AWV [facility] of Test (Initial) [code = Medicine MEDICARE AWV (Initial)] Future Scheduled FALL SCREEN [code = [facility] [place] of Test FALL SCREEN] Medicine Future Scheduled PNEUMOVAX >=65 [facility] of Test (PPSV23) [code = Medicine PNEUMOVAX >=65 (PPSV23)] Future Scheduled FLU VACCINE > 6 [facility] C ollege of Test MONTHS [code = FLU Medicine VACCINE > 6 MONTHS] Future Scheduled [place] DEBRIDEMENT OF Ordered: [facility] of Test NAILS, 6 OR MORE 11/19/2020 Medicine [code = 97348] Future Scheduled TETANUS SHOT (ADULT) [facility] of Test [code = TETANUS SHOT Medicin e (ADULT)] Future Scheduled COVID-19 Vaccine (1) [facility] of Test [code = COVID-19 Medicine Vaccine (1)] Future Scheduled BMI FOLLOW UP PLAN [facility] of Test [code = BMI FOLLOW Medicine UP PLAN] Future Scheduled Hepatitis C [facility] of Test screening Medicine (procedure) [code = [id number]] Future Scheduled ZOSTER VACCINE (1 of [facility] [employer] of Test 2) [code = ZOSTER Medicine VACCINE (1 of 2)] Future Scheduled MEDICARE AWV [facility] of Test (Initial) [code = Medicine MEDICARE AWV (Initial)] Future Scheduled FALL SCREEN [code = [facility] [place] of Test FALL SCREEN] Medicine Future Scheduled PNEUMOVAX >=65 [facility] of Test (PPSV23) [code = Medicine PNEUMOVAX >=65 (PPSV23)] Future Scheduled FLU VACCINE > 6 [facility] C [facility]lege of Test MONTHS [code = FLU Medicine VACCINE > 6 MONTHS] Encounters Start End Encounter Admission Attending Care Care Encounter Source Date/Time Date/Time Type Type Clinicians Facility Department ID 2022-05-02 Outpatient SALINA Lomeli [facility] [id number] Common 14:31:01 Asha [address] [facility] 2022-04-25 Outpatient Lomeli, STLMLC STLMLC [id number] Common 14:19:01 Asha [facility] 2022-04-18 Outpatient Lomeli, STLMLC STLMLC [id number] Common 14:31:01 Asha [facility] 2022-03-21 Outpatient Lomeli, STLMLC STLMLC [id number] Common 09:48:01 Asha [facility] 2022-03-19 Outpatient Lomeli, STLMLC STLMLC [id number] Common 13:22:01 Asha [facility] 2022-03-02 Outpatient Lomeli, STLMLC STLMLC [id number] Common 13:54:01 Asha [facility] 2021-10-04 Outpatient STLMLC STLMLC [id number] Common 11:49:32 [id number] [facility] 2021-06-13 Outpatient TRACY, SLE Surgery [id number] [facility] 15:13:05 [facility] 2019-12-15 Inpatient SLEH SLEH [id number] SLEH 15:39:17 [id number] 2022-05-01 2022-05-01 Outpatient GC_TEG_Gupt PRIV PRIV [id number] [facility] 00:00:00 00:00:00 a_A [id number] Medica l 2022-04-27 2022-04-27 ambulatory STLMLC STLMLC [id number] Common 00:00:00 00:00:00 [facility] 2022-04-27 2022-04-27 ambulatory STLMLC STLMLC [id number] Common 00:00:00 00:00:00 [facility] 2022-04-27 2022-04-27 ambulatory STLMLC STLMLC [id number] Common 00:00:00 00:00:00 [facility] 2022-04-25 2022-04-25 ambulatory STLMLC STLMLC [id number] Common 00:00:00 00:00:00 [facility] 2022-04-05 2022-04-05 ambulatory STLMLC STLC [id number] Common 00:00:00 00:00:00 [facility] 2022-03-21 2022-03-21 ambulatory STLMLC STLMLC [id number] Common 00:00:00 00:00:00 [facility] 2022-03-08 2022-03-09 [facility] Katelyn Molina [facility] [id number] [facility] 17:34:00 15:17:00 [facility] 2022-03-09 Outpatient CANDELARIO [facility] Cardiology [id number] [facility] 17:34:00 15:17:00 ADELAIDE 2022-03-08 2022-03-08 Outpatient [facility] [id number] [facility] 00:00:00 23:59:00 Giovanni Medicin e 2022-03-08 2022-03-08 Orders [facility] [id number] [facility] 00:00:00 00:00:00 [facility] 2022-02-19 2022-02-19 ambulatory STLMLC STLC [id number] Common 00:00:00 00:00:00 [facility] 2021-09-12 2021-09-12 Outpatient GC_TEG_Gupt PRIV PRIV [id number] [facility] 03:16:00 03:16:00 a_A [id number] Medica l 2021-09-12 2021-09-12 Outpatient GC_TEG_Gupt PRIV PRIV [id number] [facility] 03:16:00 03:16:00 a_A [id number] Medica l 2021-09-12 2021-09-12 Outpatient Jurado, PRIV PRIV [id number] 00:00:00 00:00:00 Katina [id number] 2021-04-12 2021-04-14 [facility], 1.2.840.1 [id number] Methodi 05:44:00 13:39:00 Encounter Elke N. 95370.1.1 333 s t 3.430.2.7 Hospit a .3.371897 l .8 2021-04-12 2021-04-12 Surgery Hilda, 1.2.840.1 [id number] Methodi 08:00:00 10:40:[address]1.[address] 3.430.2.7 Hospit a .3.502571 l .8 2021-04-12 2021-04-12 Anesthesia Filiberto Espinol 1.2.840.1 [id number] Methodi 08:00:00 10:09:00 Event [facility] [address]91.1.[address] 3.430.2.7 Hospit a .3.575030 l .8 2021-04-11 2021-04-11 Lab Hilda, 1.2.840.1 [id number] Methodi 08:06:36 08:21:36 [address]1.[address] 3.430.2.7 Hospit a .3.150745 l .8 2021-04-11 2021-04-11 Travel 1.2.840.1 1.2.102.789 [id number] Methodi 00:00:00 00:00:[address] 3.430.2.7 0.2.7.3.698 Ho spita .3.055001 084.8 l .8 2021-04-05 2021-04-05 Pre-Admiss Hilda, 1.2.840.1 [id number] Methodi 13:30:00 14:30:00 ion Elke N. 12564.1.[address] Testing 3.430.2.7 Hospit a .3.204418 l .8 2021-04-05 2021-04-05 Travel 1.2.840.1 1.2.602.455 [id number] Methodi 00:00:00 00:00:[address] 3.430.2.7 0.2.7.3.698 Ho spita .3.651103 084.8 l .8 2021-02-23 2021-02-23 Documentat Provider, 1.2.840.1 [id number] Methodi 00:00:00 00:00:00 ion Unknown 70288.1.[address] 3.430.2.7 Hospit a .3.723600 l .8 2020-11-08 2020-11-08 Office JUDI Gordon 1.2.840.114 [id number] [facility] 13:46:36 14:16:36 Visit Christiano Stevens AMBULATOR 350.1.13.21 College Y 0.2.7.2.686 of [id number] [facility] 825 e 2020-10-13 2020-10-13 Office JUDI Gruber 1.2.840.114 [id number] [facility] 10:58:31 15:07:02 Visit Ernesto AMBULATOR 350.1.13.21 College Ritesh Y 0.2.7.2.686 of [id number] [facility] 825 e 2020-09-06 2020-09-23 Inpatient YOLY Hernandez, HCAMN REHA [id number] [facility] 13:25:00 00:09:07 Daryn 26 [facility] 2020-08-30 2020-09-12 Inpatient HCAMN RAKESH [id number] [facility] 19:48:00 13:50:28 92 [facility] 2020-08-31 2020-08-31 Outpatient Vallabhalitas HCACL LABO G00 [id number] [facility] 00:09:00 00:09:00 Val grace Clear [facility] 2020-08-10 2020-08-10 Outpatient EL SLEH SLEH [id number] [facility] 00:00:00 00:00:00 2020-07-05 2020-07-05 Outpatient STLMLC STLMLC [id number] Common 00:00:00 00:00:00 [facility] 2020-06-06 2020-06-06 Outpatient STLMLC STLMLC [id number] Common 00:00:00 00:00:00 [facility] 2020-06-02 2020-06-02 Outpatient COCO ALICIA [facility] [id number] SLE 00:00:00 00:00:00 RAZA 2020-04-20 2020-04-20 Outpatient COCO ALICIA [facility] [id number] SLE 00:00:00 00:00:00 RAZA 2020-04-06 2020-04-06 Outpatient COCO ALICIA [facility] [id number] SLE 00:00:00 00:00:00 RAZA 2020-03-08 2020-03-08 Outpatient COCO ALICIA [facility] [id number] SLE 00:00:00 00:00:00 RAZA 2020-02-21 2020-02-21 Emergency ER [facility] Emergency [id number] SLE 16:41:00 16:41:00 2020-02-18 2020-02-18 Outpatient YOLY SEPULVEDA [facility] [id number] SLE 00:00:00 00:00:00 Results Test Description Test Time Test Comments Results Result Comments Source Urine culture 2022-03-10 09:46:28 Test Item Value Reference Range Interpretation Comme nts Result (test code = 6463-4) [facility] [id number] 14:28:31 Test Item Value Reference Range Interpretation Comments THYROID STIMULATING HORMONE 3.392 uIU/mL 0.350-4.940 (AKER) (test code = 772) POC-Glucose [id number] 12:11:39 Test Item Value Reference Range Interpretation Comments POC-Glucose Meter (test 231 mg/dL 70-110 H : TE STED AT [facility] code = 1538) [address] [facility], 770 30: Clay Pigeon Setter/Techni sandip ID = [id number] for MICKEY HANSON Lab Interpretation (test Abnormal code = 57697-3) [facility] [id number] 12:11:39 Test Item Value Reference Range Interpretation Comments POC-GLUCOSE METER 231 mg/dL 70-110 H : TESTED A T [facility] 6720 ([facility]) (test code = BRENDA Dykes [facility], 1538) [address]: Clay Pigeon Setter/Techni sandip ID = [id number] for MICKEY RAMÍREZ [id number] 09:19:56 Test Item Value Reference Range Interpretation Comments PARTIAL THROMBOPLASTIN TIME 80.6 seconds 22.5-36.0 H (BEAKER) (test code = 760) POCT-GLUCOSE [id number] 08:55:25 Test Item Value Reference Range Interpretation Comments POC-GLUCOSE METER 251 mg/dL 70-110 H : TESTED A T [facility] 6720 (BEAKER) (test code = [place], 1538) [address]: Clay Pigeon Setter/Techni sandip ID = [id number] for OR MICKEY JOLLEY HEMOGLOBIN [id number] 08:41:18 Test Item Value Reference Range Interpretation Comments HEMOGLOBIN A1C 9.2 % See_Comment H [Automated m essage] ELECTROPHORESIS (BEAKER) The system which (test code = 3811) generated this result transmitted ref erence range: <=5.6%. The reference range was not used to int erpret this result as normal/abnormal . "The A1c is measured using a NGSP-certified method. HbA1c value equal to or greater than 6.5% as thediagnosis cutoff for diabetes. An HbA1c value of 5.7- 6.4% indicates increased risk for diabetes (prediabetes)."Clay Pigeon Setter ID - ADMBASIC METABOLIC [id number] 06:41:02 Test Item Value Reference Range Interpretation Comments SODIUM (BEAKER) 136 meq/L 136-145 (test code = 381) POTASSIUM (BEAKER) 4.4 meq/L 3.5-5.1 (test code = 379) CHLORIDE (BEAKER) 101 meq/L 98-107 (test code = 382) CO2 (BEAKER) (test 24 meq/L 22-29 code = 355) BLOOD UREA NITROGEN 14 mg/dL 7-21 (BEAKER) (test code = 354) CREATININE (BEAKER) 0.84 mg/dL 0.57-1.25 (test code = 358) GLUCOSE RANDOM 205 mg/dL 70-105 H (BEAKER) (test code = 652) CALCIUM (BEAKER) 9.7 mg/dL 8.4-10.2 (test code = 697) EGFR (BEAKER) (test 89 mL/min/1.73 [facility] [place] GFR IS code = 1092) sq m NOT ACCURATE CREATININE CLEARANCE IN PREDICTING GLOMERULAR FILTRATION RATE . ESTIMATED GFR I S NOT APPLICABLE FOR DIALYSIS PATIEN TS. Clay Pigeon Setter ID - [id number] 06:41:02 Test Item Value Reference Range Interpretation Comments MAGNESIUM (BEAKER) (test code = 1.9 mg/dL 1.6-2.6 627) Clay Pigeon Setter ID - ADMINCBC W/PLT COUNT & AUTO [id number] 06:17:11 Test Item Value Reference Range Interpretation Comments WHITE BLOOD CELL COUNT (BEAKER) 7.7 K/ L 3.5-10.5 (test code = 775) RED BLOOD CELL COUNT (BEAKER) 4.40 M/ L 4.63-6.08 L (test code = 761) HEMOGLOBIN (BEAKER) (test code = 14.0 GM/DL 13.7-17.5 410) HEMATOCRIT (BEAKER) (test code = 41.4 % 40.1-51.0 411) MEAN CORPUSCULAR VOLUME (BEAKER) 94.1 fL 79.0-92.2 H (test code = 753) MEAN CORPUSCULAR HEMOGLOBIN 31.8 pg 25.7-32.2 (BEAKER) (test code = 751) MEAN CORPUSCULAR HEMOGLOBIN CONC 33.8 GM/DL 32.3-36.5 (BEAKER) (test code = 752) RED CELL DISTRIBUTION WIDTH 13.7 % 11.6-14.4 (BEAKER) (test code = 412) PLATELET COUNT (BEAKER) (test 171 K/CU MM 150-450 code = 756) MEAN PLATELET VOLUME (BEAKER) 10.8 fL 9.4-12.4 (test code = 754) NUCLEATED RED BLOOD CELLS 0 /100 WBC 0-0 (BEAKER) (test code = 413) NEUTROPHILS RELATIVE PERCENT 55 % (BEAKER) (test code = 429) LYMPHOCYTES RELATIVE PERCENT 25 % (BEAKER) (test code = 430) MONOCYTES RELATIVE PERCENT 15 % (BEAKER) (test code = 431) EOSINOPHILS RELATIVE PERCENT 5 % (BEAKER) (test code = 432) BASOPHILS RELATIVE PERCENT 1 % (BEAKER) (test code = 437) NEUTROPHILS ABSOLUTE COUNT 4.21 K/ L 1.78-5.38 (BEAKER) (test code = 670) LYMPHOCYTES ABSOLUTE COUNT 1.89 K/ L 1.32-3.57 (BEAKER) (test code = 414) MONOCYTES ABSOLUTE COUNT (BEAKER) 1.12 K/ L 0.30-0.82 H (test code = 415) EOSINOPHILS ABSOLUTE COUNT 0.39 K/ L 0.04-0.54 (BEAKER) (test code = 416) BASOPHILS ABSOLUTE COUNT (BEAKER) 0.05 K/ L 0.01-0.08 (test code = 417) IMMATURE GRANULOCYTES-RELATIVE 0 % 0-1 PERCENT (BEAKER) (test code = 2801) [id number] 03:15:56 Test Item Value Reference Range Interpretation Comments PARTIAL THROMBOPLASTIN TIME 80.9 seconds 22.5-36.0 H (BEAKER) (test code = 760) Urinalysis w/Microscopic + Reflex to [id number] 03:13:36 Test Item Value Reference Range Interpretation Comments Color, UA (test code Light Yellow = 5778-6) Clarity, UA (test Clear code = 5767-9) Specific [place], UA 1.024 1.001-1.035 (test code = 5811-5) pH, UA (test code = 6.5 5.0-8.0 5803-2) Protein, UA (test Negative Negative code = 86510-2) Glucose, UA (test >1000 mg/dL Negative A code = 365) Ketones, UA (test Negative Negative code = 2514-8) Bilirubin, UA (test Negative Negative code = 46039-0) Blood, UA (test code Large Negative A = 68215-4) Nitrite, UA (test Negative Negative code = 5802-4) Leukocytes, UA (test Moderate Negative A code = 5799-2) Urobilinogen, UA 0.2 mg/dL 0.2-1.0 (test code = 39019-0) RBC, UA (test code = 165 See_Comment [Autom ated 01270-5) message] The system which generated this result transmit [place] reference range : /HPF. The reference range was not used to interpret this result as normal/abnormal . WBC, UA (test code = 49 See_Comment [Autom ated 5821-4) message] The system which generated this result transmit [place] reference range : /HPF. The reference range was not used to interpret this result as normal/abnormal . Bacteria, UA (test None Seen code = 85140-9) Squam Epithel, UA 3 See_Comment [Automate d (test code = 84990-8) messag e] The system which generated this result transmit [place] reference range : /HPF. The reference range was not used to interpret this result as normal/abnormal . Crystals, Urine (test None Seen code = 12498-6) Specimen Source (test code = 2795) MAEVE (test code = MAEVE) Clay Pigeon Setter ID - [auto]Clay Pigeon Setter ID - tech Lab Interpretation Abnormal (test code = 53048-7) [facility] [id number] 03:13:36 Test Item Value Reference Range Interpretation Comments COLOR (BEAKER) (test code = 470) Light Yellow CLARITY (BEAKER) (test code = Clear 469) SPECIFIC GRAVITY UA (BEAKER) 1.024 1.001-1.035 (test code = 468) PH UA (BEAKER) (test code = 467) 6.5 5.0-8.0 PROTEIN UA (BEAKER) (test code = Negative Negative 464) GLUCOSE UA (BEAKER) (test code = >1000 mg/dL Negative A 365) KETONES UA (BEAKER) (test code = Negative Negative 371) BILIRUBIN UA (BEAKER) (test code Negative Negative = 462) BLOOD UA (BEAKER) (test code = Large Negative A 461) NITRITE UA (BEAKER) (test code = Negative Negative 465) LEUKOCYTE ESTERASE UA (BEAKER) Moderate Negative A (test code = 466) UROBILINOGEN UA (BEAKER) (test 0.2 mg/dL 0.2-1.0 code = 463) RBC UA (BEAKER) (test code = 165 /HPF 519) WBC UA (BEAKER) (test code = 49 /HPF 520) BACTERIA (BEAKER) (test code = None Seen 517) SQUAMOUS EPITHELIAL (BEAKER) 3 /HPF (test code = 516) CRYSTALS, URINE (BEAKER) (test None Seen code = 1521) SOURCE(BEAKER) (test code = 2795) Clay Pigeon Setter ID - [auto]Clay Pigeon Setter ID - techHIGH SENSITIVITY TROPONIN [id number] 02:53:30 Test Item Value Reference Range Interpretation Comments HIGH SENSITIVITY 57 pg/ml See_Comment H [Automated message] TROPONIN I (test code = The system which [id number]) generated this result transmitted ref erence range: <=35. Th e reference range was not used to int erpret this result as normal/abnormal . Clay Pigeon Setter ID - AFUA GThe APPLICATIONS MANAGER STAT High Sensitivity Troponin-I results should be used in conjunction with other diagnostic information such as ECG, clinical observations and information, and patient symptoms to aid in the diagnosis of CT.POCT-GLUCOSE [id number] 21:16:48 Test Item Value Reference Range Interpretation Comments POC-GLUCOSE METER 265 mg/dL 70-110 H : TESTED A T BSC 6720 (BEAKER) (test code = BRENDA Dykes [place], 1538) [address]: Clay Pigeon Setter/Techni sandip ID = [id number] for Ana Chandra B-TYPE NATRIURETIC FACTOR (BNP)2022-03-08 20:42:35 Test Item Value Reference Range Interpretation Comments B-TYPE NATRIURETIC PEPTIDE (BEAKER) 166 pg/mL 0-100 H (test code = 700) Clay Pigeon Setter ID - BSCOMPREHENSIVE METABOLIC [id number] 20:33:55 Test Item Value Reference Range Interpretation Comments TOTAL PROTEIN 6.1 gm/dL 6.0-8.3 (BEAKER) (test code = 770) ALBUMIN (BEAKER) 3.7 g/dL 3.5-5.0 (test code = 1145) ALKALINE PHOSPHATASE 65 U/L 40-150 (BEAKER) (test code = 346) BILIRUBIN TOTAL 0.5 mg/dL 0.2-1.2 (BEAKER) (test code = 377) SODIUM (BEAKER) (test 137 meq/L 136-145 code = 381) POTASSIUM (BEAKER) 4.4 meq/L 3.5-5.1 (test code = 379) CHLORIDE (BEAKER) 103 meq/L 98-107 (test code = 382) CO2 (BEAKER) (test 24 meq/L 22-29 code = 355) BLOOD UREA NITROGEN 15 mg/dL 7-21 (BEAKER) (test code = 354) CREATININE (BEAKER) 0.92 mg/dL 0.57-1.25 (test code = 358) GLUCOSE RANDOM 290 mg/dL 70-105 H (BEAKER) (test code = 652) CALCIUM (BEAKER) 9.6 mg/dL 8.4-10.2 (test code = 697) AST (SGOT) (BEAKER) 11 U/L 5-34 (test code = 353) ALT (SGPT) (BEAKER) 13 U/L 6-55 (test code = 347) EGFR (BEAKER) (test 80 mL/min/1.73 ESTIMA [place] GFR IS code = 1092) sq m NOT ACCURATE CREATININE CLEARANCE IN PREDICTING GLOMERULAR FILTRATION RATE . ESTIMATED GFR I S NOT APPLICABLE FOR DIALYSIS PATIEN TS. Clay Pigeon Setter ID - [id number] 20:29:11 Test Item Value Reference Range Interpretation Comments PARTIAL THROMBOPLASTIN TIME 32.7 seconds 22.5-36.0 (BEAKER) (test code = 760) CBC (HEMOGRAM ONLY)2022-03-08 20:16:36 Test Item Value Reference Range Interpretation Comments WHITE BLOOD CELL COUNT (BEAKER) 7.5 K/ L 3.5-10.5 (test code = 775) RED BLOOD CELL COUNT (BEAKER) 4.26 M/ L 4.63-6.08 L (test code = 761) HEMOGLOBIN (BEAKER) (test code = 13.6 GM/DL 13.7-17.5 L 410) HEMATOCRIT (BEAKER) (test code = 40.4 % 40.1-51.0 411) MEAN CORPUSCULAR VOLUME (BEAKER) 94.8 fL 79.0-92.2 H (test code = 753) MEAN CORPUSCULAR HEMOGLOBIN 31.9 pg 25.7-32.2 (BEAKER) (test code = 751) MEAN CORPUSCULAR HEMOGLOBIN CONC 33.7 GM/DL 32.3-36.5 (BEAKER) (test code = 752) RED CELL DISTRIBUTION WIDTH 13.8 % 11.6-14.4 (BEAKER) (test code = 412) PLATELET COUNT (BEAKER) (test 159 K/CU MM 150-450 code = 756) MEAN PLATELET VOLUME (BEAKER) 10.3 fL 9.4-12.4 (test code = 754) NUCLEATED RED BLOOD CELLS 0 /100 WBC 0-0 (BEAKER) (test code = 413) HIGH SENSITIVITY TROPONIN [id number] 19:40:23 Test Item Value Reference Range Interpretation Comments HIGH SENSITIVITY 72 pg/ml See_Comment H [Automated message] TROPONIN I (test code = The system which [id number]) generated this result transmitted ref erence range: <=35. Th e reference range was not used to int erpret this result as normal/abnormal . Clay Pigeon Setter ID - BSThe APPLICATIONS MANAGER STAT High Sensitivity Troponin-I results should be used in conjunctionwith other diagnostic information such as ECG, clinical observations and information, and patient symptoms to aid in the diagnosis of CT.POC iowyxvf2432-64-90 12:29:21 Test Item Value Reference Range Interpretation Comments POC glucose (test code 198 mg/dL 65-99 H Opera tor Name: Jh = 38553-6) YoahanaDevice I D: [id number] able: [facility] Notified sexer Interpretation Abnormal (test code = 01843-3) [facility] achugoz4734-19-59 12:29:21 Test Item Value Reference Range Interpretation Comments POC glucose (test code 198 mg/dL 65-99 H Opera tor Name: Jh = 33418-9) YoahanaDevice I D: [id number] able: [facility] Notified sexer Interpretation Abnormal (test code = 19951-6) [place] [address] trho4974-11-42 00:10:08 Test Item Value Reference Range Interpretation Comments Ventricular rate (test code = 253) Atrial rate (test code = 255) UT interval (test code = 266) QRSD interval [...] 05-APR-2021 14:57,-premature atrial complexes are now present- [facility] 12 [id number] 00:10:08 Test Item Value Reference Range Interpretation Comments Ventricular rate (test code = 253) Atrial rate (test code = 255) UT interval (test code = 266) QRSD interval [...] 05-APR-2021 14:57,-premature atrial complexes are now present- [facility] and Rh ewodnrifjdjt5031-31-78 12:53:00 Test Item Value Reference Range Interpretation Comments ABO grouping (test code = 883-9) O Rh type (test code = 95433-8) POS [facility] and Rh ryettkmcwaku4393-70-11 12:53:00 Test Item Value Reference Range Interpretation Comments ABO grouping (test code = 883-9) O Rh type (test code = 15738-4) [facility] [id number] 17:13:58 Test Item Value Reference Range Interpretation Comments Interpretation (test Negative results do code = 0173977) not preclude 2019-nCoV infection and should not be used as the sole basis for treatment or other patient management decisions. Negative results must be combined with clinical observations, patient history, and epidemiological information. COVID-19 qualitative Not-Detected Not-Detected RT-PCR result (test code = 64422-7) COVID-19 qualitative See link below for C ase Number: RT-PCR (test code = PDF Lab Report [id number]) [facility] [id number] 17:13:58 Test Item Value Reference Range Interpretation Comments Interpretation (test Negative results do code = 8410393) not preclude 2019-nCoV infection and should not be used as the sole basis for treatment or other patient management decisions. Negative results must be combined with clinical observations, patient history, and epidemiological information. COVID-19 qualitative Not-Detected Not-Detected RT-PCR result (test code = 94556-7) COVID-19 qualitative See link below for C ase Number: RT-PCR (test code = PDF Lab Report [id number]) [facility] [Presence] in Respiratory specimen by MICHI with probe sdosrooqe5357-43-55 12:13:10 Test Item Value Reference Range Interpretation Comments SARS-CoV-2 (COVID-19) RNA Not detected Not-Detected [Presence] in Respiratory specimen by MICHI with probe detection (test code = 12366-6) Whether patient is employed in a healthcare setting (test code = 61813-7) Whether the patient has symptoms related to condition of interest (test code = 07777-6) Patient was hospitalized because of this condition (test code = 38859-7) Whether the patient was admitted to intensive care unit (ICU) for condition of interest (test code = 90030-9) Whether patient resides in a congregate care setting (test code = 13461-1) ECG Pre/Post [id number] 18:34:55 Test Item Value Reference Range Interpretation Comments Ventricular rate (test code = 253) Atrial rate (test code = 255) UT interval (test code = 266) QRSD interval (test code = 260) QT interval (test code = 264) QTC interval (test code = 265) P axis 1 (test code = 267) QRS axis 1 (test code = 268) T wave axis (test code = 270) EKG impression (test Normal sinus code = 273) rhythm-Normal ECG-No significant change was found when compared to prior ECG- [facility] [id number] 18:34:55 Test Item Value Reference Range Interpretation Comments Ventricular rate (test code = 253) Atrial rate (test code = 255) UT interval (test code = 266) QRSD interval (test code = 260) QT interval (test code = 264) QTC interval (test code = 265) P axis 1 (test code = 267) QRS axis 1 (test code = 268) T wave axis (test code = 270) EKG impression (test Normal sinus code = 273) rhythm-Normal ECG-No significant change was found when compared to prior ECG- [facility] msmwls1696-12-06 22:39:00 Test Item Value Reference Range Interpretation Comments ABO grouping (test code = 883-9) O Rh type (test code = 39174-3) POS Antibody screen (gel) (test code = NEG 890-4) [facility] cludwx5700-22-37 22:39:00 Test Item Value Reference Range Interpretation Comments ABO grouping (test code = 883-9) O Rh type (test code = 31963-7) POS Antibody screen (gel) (test code = NEG 890-4) [facility] xecurpn6426-95-10 22:22:53 Test Item Value Reference Range Interpretation Comments Urine culture (test SEE COMMENT Bacteriu noah screen code = 9410356) negative. [facility] fhfpvlv3733-23-54 22:22:53 Test Item Value Reference Range Interpretation Comments Urine culture (test SEE COMMENT Bacteriu noah screen code = 2997820) negative. [facility]zmpiyphJRZDUW7619-05-68 17:05:00 Test Item Value Reference Range Interpretation Comments GLUBED (test code = GLUBED) 204 mg/dL 70-110 H [id number] 07:54:00 Test Item Value Reference Range Interpretation Comments GLUBED (test code = GLUBED) 142 mg/dL 70-110 H [id number] 21:15:00 Test Item Value Reference Range Interpretation Comments GLUBED (test code = GLUBED) 215 mg/dL 70-110 H [id number] 16:48:00 Test Item Value Reference Range Interpretation Comments GLUBED (test code = GLUBED) 191 mg/dL 70-110 H [id number] 14:28:00 Test Item Value Reference Range Interpretation Comments GLUBED (test code = GLUBED) 154 mg/dL 70-110 H [id number] 11:42:00 Test Item Value Reference Range Interpretation Comments GLUBED (test code = GLUBED) 180 mg/dL 70-110 H CBC W/AUTO [id number] 10:45:00 Test Item Value Reference Range Interpretation [...] 0.00 X10 3uL 0.00-0.01 N NRBC#) LINE [id number] 07:17:00 Test Item Value Reference Range Interpretation Comments GLUBED (test code = GLUBED) 149 mg/dL 70-110 H [id number] 16:29:00 Test Item Value Reference Range Interpretation Comments GLUBED (test code = GLUBED) 202 mg/dL 70-110 H [id number] 11:50:00 Test Item Value Reference Range Interpretation Comments GLUBED (test code = GLUBED) 197 mg/dL 70-110 H [id number] 07:00:00 Test Item Value Reference Range Interpretation Comments GLUBED (test code = GLUBED) 147 mg/dL 70-110 H [id number] 21:04:00 Test Item Value Reference Range Interpretation Comments GLUBED (test code = GLUBED) 235 mg/dL 70-110 H [id number] 20:47:00 Test Item Value Reference Range Interpretation Comments GLUBED (test code = GLUBED) 193 mg/dL 70-110 H [id number] 11:57:00 Test Item Value Reference Range Interpretation Comments GLUBED (test code = GLUBED) 213 mg/dL 70-110 H [id number] 08:47:00 Test Item Value Reference Range Interpretation Comments GLUBED (test code = GLUBED) 156 mg/dL 70-110 H COMPREHENSIVE METABOLIC [id number] 08:15:00 Test Item Value Reference Range Interpretation [...] 50.0-136.0 N code = ALKP) CBC W/AUTO [id number] 07:36:00 Test Item Value Reference Range Interpretation [...] = 0.00 X10 3uL 0.00-0.01 N NRBC#) [id number] 20:21:00 Test Item Value Reference Range Interpretation Comments GLUBED (test code = GLUBED) 264 mg/dL 70-110 H [id number] 15:51:00 Test Item Value Reference Range Interpretation Comments GLUBED (test code = GLUBED) 183 mg/dL 70-110 H [id number] 15:02:00 Test Item Value Reference Range Interpretation Comments GLUBED (test code = GLUBED) 271 mg/dL 70-110 H [id number] 11:46:00 Test Item Value Reference Range Interpretation Comments GLUBED (test code = GLUBED) 218 mg/dL 70-110 H [id number] 07:59:00 Test Item Value Reference Range Interpretation Comments GLUBED (test code = GLUBED) 150 mg/dL 70-110 H [id number] 22:17:00 Test Item Value Reference Range Interpretation Comments GLUBED (test code = GLUBED) 257 mg/dL 70-110 H [id number] 16:49:00 Test Item Value Reference Range Interpretation Comments GLUBED (test code = GLUBED) 234 mg/dL 70-110 H [id number] 11:03:00 Test Item Value Reference Range Interpretation Comments GLUBED (test code = GLUBED) 209 mg/dL 70-110 H [id number] 17:37:00 Test Item Value Reference Range Interpretation Comments GLUBED (test code = GLUBED) 276 mg/dL 70-110 H [id number] 11:56:00 Test Item Value Reference Range Interpretation Comments GLUBED (test code = GLUBED) 210 mg/dL 70-110 H [id number] 08:17:00 Test Item Value Reference Range Interpretation Comments GLUBED (test code = GLUBED) 165 mg/dL 70-110 H [id number] 20:27:00 Test Item Value Reference Range Interpretation Comments GLUBED (test code = GLUBED) 294 mg/dL 70-110 H [id number] 16:43:00 Test Item Value Reference Range Interpretation Comments GLUBED (test code = GLUBED) 244 mg/dL 70-110 H [id number] 11:45:00 Test Item Value Reference Range Interpretation Comments GLUBED (test code = GLUBED) 205 mg/dL 70-110 H [id number] 07:07:00 Test Item Value Reference Range Interpretation Comments GLUBED (test code = GLUBED) 187 mg/dL 70-110 H [id number] 21:16:00 Test Item Value Reference Range Interpretation Comments GLUBED (test code = GLUBED) 239 mg/dL 70-110 H [id number] 16:50:00 Test Item Value Reference Range Interpretation Comments GLUBED (test code = GLUBED) 189 mg/dL 70-110 H [id number] 16:50:00 Test Item Value Reference Range Interpretation Comments GLUBED (test code = GLUBED) 214 mg/dL 70-110 H [id number] 07:22:00 Test Item Value Reference Range Interpretation Comments GLUBED (test code = GLUBED) 212 mg/dL 70-110 H [id number] 21:12:00 Test Item Value Reference Range Interpretation Comments GLUBED (test code = GLUBED) 280 mg/dL 70-110 H [id number] 16:11:00 Test Item Value Reference Range Interpretation Comments GLUBED (test code = GLUBED) 272 mg/dL 70-110 H [id number] 11:09:00 Test Item Value Reference Range Interpretation Comments GLUBED (test code = GLUBED) 261 mg/dL 70-110 H [id number] 07:00:00 Test Item Value Reference Range Interpretation Comments GLUBED (test code = GLUBED) 199 mg/dL 70-110 H BASIC METABOLIC [id number] 06:56:00 Test Item Value Reference Range Interpretation [...] 9.1 mg/dl 8.0-10.5 N LINE DRAWCBC W/AUTO [id number] 06:44:00 Test Item Value Reference Range Interpretation [...] 0.00 X10 3uL 0.00-0.01 N NRBC#) LINE [id number] 03:10:00 Test Item Value Reference Range Interpretation Comments GLUBED (test code = GLUBED) 278 mg/dL 70-110 H [id number] 19:59:00 Test Item Value Reference Range Interpretation Comments GLUBED (test code = GLUBED) 290 mg/dL 70-110 H [id number] 16:29:00 Test Item Value Reference Range Interpretation Comments GLUBED (test code = GLUBED) 232 mg/dL 70-110 H - XR HIP W/PEL UNI 2+V [id number] 14:54:00 [facility] 1945 Sex: M FAX: Daryn Potter [phone] [place]: St: ADM FAX: Eh Vasques MD [phone] Name: ALTHEA TOVAR [facility] : 1945 Age/S: 75/M [address] [facility] Unit #: [id number]: [address] [place], [place]: [place] [address] Acct: [id number] Dis Date: Status: ADM IN PHONE #: [phone] Exam Date: 09/12/2020 [facility] FAX #: [phone] Reason: HIP PAIN EXAMS: CPT CODE: [id number] XR HIP W/PEL UNI 2+[place] [address] B2 EXAM: - XR HIP W/PEL UNI 2+V RT HISTORY: HIP PAIN COMPARISON: None FINDINGS: No acute fracture or dislocation. Severe acetabular joint space narrowingwith subchondral sclerosis and osteophyte formation. No aggressive osseous lesions. Moderate vascular calcifications. 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 at 1454 Reported and signed by: Jonathan Hyde M.D. CC: Daryn Hernandez MD; Eh Saldana MD Technologist: RANDALL PATRICIA Trnscrd Date/Time/By: 09/12/2020 (3425) : By: [email or web address] PAGE 1 Signed Report FAX: Daryn Potter [phone] [place]: St: ADM FAX: Eh Vasques MD [phone] Name: GUYOHMONSTER KELLEY [facility] : 1945 Age/S: 75/M [address] [facility] Unit #: [id number] Loc: [address] Phys: [place] [address] Acct: [id number] Dis Date: Status: ADM IN PHONE #: [phone] Exam Date: 09/12/2020 1351 FAX #: [phone] Reason: HIP PAIN EXAMS: CPT CODE: [id number] XR HIP W/PEL UNI 2+V RT 19073 (Continued) Orig Print D/T: S: 09/12/2020 (5283) PAGE 2 Signed [id number] 10:21:00 Test Item Value Reference Range Interpretation Comments GLUBED (test code = GLUBED) 248 mg/dL 70-110 H BASIC METABOLIC [id number] 09:22:00 Test Item Value Reference Range Interpretation [...] code = CA) 9.2 mg/dl 8.0-10.5 N [id number] 07:24:00 Test Item Value Reference Range Interpretation Comments GLUBED (test code = GLUBED) 187 mg/dL 70-110 H [id number] 16:22:00 Test Item Value Reference Range Interpretation Comments GLUBED (test code = GLUBED) 224 mg/dL 70-110 H [id number] 14:55:00 Test Item Value Reference Range Interpretation Comments GLUBED (test code = GLUBED) 284 mg/dL 70-110 H [id number] 14:52:00 Test Item Value Reference Range Interpretation Comments GLUBED (test code = GLUBED) 201 mg/dL 70-110 H [id number] 12:08:00 Test Item Value Reference Range Interpretation Comments GLUBED (test code = GLUBED) 214 mg/dL 70-110 H [id number] 06:53:00 Test Item Value Reference Range Interpretation Comments GLUBED (test code = GLUBED) 166 mg/dL 70-110 H [id number] 20:16:00 Test Item Value Reference Range Interpretation Comments GLUBED (test code = GLUBED) 274 mg/dL 70-110 H [id number] 12:00:00 Test Item Value Reference Range Interpretation Comments GLUBED (test code = GLUBED) 190 mg/dL 70-110 H [id number] 07:37:00 Test Item Value Reference Range Interpretation Comments GLUBED (test code = GLUBED) 183 mg/dL 70-110 H [id number] 16:55:00 Test Item Value Reference Range Interpretation Comments GLUBED (test code = GLUBED) 231 mg/dL 70-110 H [id number] 12:04:00 Test Item Value Reference Range Interpretation Comments GLUBED (test code = GLUBED) 168 mg/dL 70-110 H [id number] 08:23:00 Test Item Value Reference Range Interpretation Comments GLUBED (test code = GLUBED) 163 mg/dL 70-110 H [id number] 20:03:00 Test Item Value Reference Range Interpretation Comments GLUBED (test code = GLUBED) 222 mg/dL 70-110 H [id number] 16:42:00 Test Item Value Reference Range Interpretation Comments GLUBED (test code = GLUBED) 168 mg/dL 70-110 H [id number] 10:37:00 Test Item Value Reference Range Interpretation Comments GLUBED (test code = GLUBED) 199 mg/dL 70-110 H [id number] 07:16:00 Test Item Value Reference Range Interpretation Comments GLUBED (test code = GLUBED) 159 mg/dL 70-110 H [id number] 20:13:00 Test Item Value Reference Range Interpretation Comments GLUBED (test code = GLUBED) 225 mg/dL 70-110 H [id number] 16:33:00 Test Item Value Reference Range Interpretation Comments GLUBED (test code = GLUBED) 213 mg/dL 70-110 H [id number] 10:34:00 Test Item Value Reference Range Interpretation Comments GLUBED (test code = GLUBED) 180 mg/dL 70-110 H COMPREHENSIVE METABOLIC [id number] 08:07:00 Test Item Value Reference Range Interpretation [...] 50.0-136.0 N code = ALKP) Specimen comments: .[id number] 08:07:00 Test Item Value Reference Range Interpretation Comments MAGNESIUM (test code = MAG) 1.9 mg/dl 1.8-2.4 N Specimen comments: .CBC W/AUTO [id number] 07:51:00 Test Item Value Reference Range Interpretation [...] = 0.00 X10 3uL 0.00-0.01 N NRBC#) [id number] 07:08:00 Test Item Value Reference Range Interpretation Comments GLUBED (test code = GLUBED) 125 mg/dL 70-110 H [id number] 04:04:00 Test Item Value Reference Range Interpretation Comments GLUBED (test code = GLUBED) 138 mg/dL 70-110 H [id number] 04:04:00 Test Item Value Reference Range Interpretation Comments GLUBED (test code = GLUBED) 144 mg/dL 70-110 H URINALYSIS [id number] 22:30:00 Test Item Value Reference Range Interpretation [...] cath if unable to obtain Clean CatchURINALYSIS [id number] 22:14:00 Test Item Value Reference Range Interpretation [...] Straight cath if unable to obtain Clean [id number] 20:18:00 Test Item Value Reference Range Interpretation Comments GLUBED (test code = GLUBED) 132 mg/dL 70-110 H [id number] 10:52:00 Test Item Value Reference Range Interpretation Comments GLUBED (test code = GLUBED) 130 mg/dL 70-110 H [id number] 05:22:00 Test Item Value Reference Range Interpretation Comments GLUBED (test code = GLUBED) 102 mg/dL 70-110 N BASIC METABOLIC [id number] 04:53:00 Test Item Value Reference Range Interpretation [...] = CA) 8.9 mg/dl 8.0-10.5 N LINE [id number] 04:53:00 Test Item Value Reference Range Interpretation Comments MAGNESIUM (test code = MAG) 2.0 mg/dl 1.8-2.4 N LINE DRAWCBC W/AUTO [id number] 04:40:00 Test Item Value Reference Range Interpretation [...] 0.00 X10 3uL 0.00-0.01 N NRBC#) LINE [id number] 01:57:00 Test Item Value Reference Range Interpretation Comments GLUBED (test code = GLUBED) 119 mg/dL 70-110 H [id number] 23:29:00 Test Item Value Reference Range Interpretation Comments GLUBED (test code = GLUBED) 118 mg/dL 70-110 H [id number] 20:02:00 Test Item Value Reference Range Interpretation Comments GLUBED (test code = GLUBED) 129 mg/dL 70-110 H BASIC METABOLIC [id number] 10:20:00 Test Item Value Reference Range Interpretation [...] = CA) 8.8 mg/dl 8.0-10.5 N LINE [id number] 10:20:00 Test Item Value Reference Range Interpretation Comments MAGNESIUM (test code = MAG) 1.6 mg/dl 1.8-2.4 L LINE DRAWCBC W/AUTO [id number] 09:48:00 Test Item Value Reference Range Interpretation [...] 0.03 X10 3uL 0.00-0.01 H NRBC#) LINE [id number] 05:23:00 Test Item Value Reference Range Interpretation Comments GLUBED (test code = GLUBED) 121 mg/dL 70-110 H [id number] 00:40:00 Test Item Value Reference Range Interpretation Comments GLUBED (test code = GLUBED) 129 mg/dL 70-110 H [id number] 21:35:00 Test Item Value Reference Range Interpretation Comments GLUBED (test code = GLUBED) 148 mg/dL 70-110 H VANCOMYCIN [id number] 21:30:00 Test Item Value Reference Range Interpretation Comments VANCOMYCIN TROUGH 11.8 mcg/mL 10-20 N Other dise ase (test code = VANCT) associat ed reference ranges: 10 - 15 mcg/mL Cellulit is, urinary tract infection 15 - 20 mcg/mL Bacterem ia, infective endocarditis, osteomyelitis, meningitis, pneumonia, lizzy re skin/soft tissu e infection, spin al abscess Specimen comments: PLEASE DRAW 30-1-60 MIN PRIOR TO DOSEComments to Rate Inserter: MAKE SURE BAG IS NOT [id number] 17:19:00 Test Item Value Reference Range Interpretation Comments GLUBED (test code = GLUBED) 154 mg/dL 70-110 H [id number] 15:37:00 Test Item Value Reference Range Interpretation Comments GLUBED (test code = GLUBED) 119 mg/dL 70-110 H [id number] 11:16:00 Test Item Value Reference Range Interpretation Comments GLUBED (test code = GLUBED) 102 mg/dL 70-110 N [id number] 07:06:00 Test Item Value Reference Range Interpretation Comments GLUBED (test code = GLUBED) 97 mg/dL 70-110 N [id number] 05:44:00 Test Item Value Reference Range Interpretation Comments GLUBED (test code = GLUBED) 103 mg/dL 70-110 N BASIC METABOLIC [id number] 07:13:00 Test Item Value Reference Range Interpretation [...] code = CA) 8.3 mg/dl 8.0-10.5 N [id number] 07:13:00 Test Item Value Reference Range Interpretation Comments LIPASE (test code = LIP) 360 Units/L 65.0-230.0 H ARTERIAL BLOOD [id number] 16:13:00 Test Item Value Reference Range Interpretation [...] N N ORMAL METHGB) <2.0POTENTIALLY TOXIC >20.0 PaO2/[id number] 16:13:00 Test Item Value Reference Range Interpretation Comments PaO2/FiO2 (test code = EST4KNG7) 422.60 mm/Hg ARTERIAL BLOOD [id number] 16:12:00 Test Item Value Reference Range Interpretation [...] N N ORMAL METHGB) <2.0POTENTIALLY TOXIC >20.0 PaO2/[id number] 16:12:00 Test Item Value Reference Range Interpretation Comments PaO2/FiO2 (test code = NJV2IOH9) mm/Hg CBC W/AUTO [id number] 11:07:00 Test Item Value Reference Range Interpretation [...] 0.00-0.01 N code = NRBC#) BASIC METABOLIC [id number] 06:22:00 Test Item Value Reference Range Interpretation [...] code = CA) 8.4 mg/dl 8.0-10.5 N [id number] 06:22:00 Test Item Value Reference Range Interpretation Comments LIPASE (test code = LIP) 322 Units/L 65.0-230.0 H CBC W/AUTO [id number] 05:53:00 Test Item Value Reference Range Interpretation [...] 0.00 X10 3uL 0.00-0.01 N NRBC#) - CHEST 1 [id number] 01:10:00 [facility] [place] RANCHOHORTENC[facility] ALTHEA KELLEY : 1945 Sex: M FAX: Michael Holm MD [phone] [place]: St: [facility] FAX: Jeffery Gann [phone] Name: ALTHEA TOVAR [facility] : 1945 Age/S: 75/M [address] [facility] Unit #: [id number]: [address] [place], [place]: [place] [address] Acct: [id number] Dis Date: Status: ADM IN PHONE #: [phone] Exam Date: 09/02/2020 005 FAX #: [phone] Reason: NGT PLACEMENT EXAMS: CPT CODE: [id number] XR CHEST 1 V 20465 EXAMINATION: - XR CHEST 1 V LOCATION: H61 INDICATION/CLINICAL HISTORY: NGT PLACEMENT COMPARISON: Chest x-ray 09/01/2020. TECHNIQUE: AP view of the chest. FINDINGS: NG tube is again seen. The tip courses inferiorly out of the kdrbh-xo-ynhk into the distal stomach. Cardiac silhouette is normal in size. There are unchanged strandy bibasilar opacities, compatible with subsegmental atelectasis. No new airspace disease. No appreciable pneumothorax or pleural effusion. Right PICC and endotracheal tube are unchanged. IMPRESSION: 1. NG tube tip courses inferiorly out of the wmpzm-yv-ffsh and is likely located in the distal stomach. 2. Unchanged bibasilar subsegmentalatelectasis. at 0110 Reported and signed by: Stacy Gil CC: Michael Llamas MD; Enedina Cantrell MD Technologist: ESVIN PENA Trnscrd Date/Time/By: 09/02/2020 (0110) : By: [email or web address] PAGE 1 Signed Report FAX: Michael Holm [phone] [place]: St: ADM FAX: Jeffery Gann [phone] Name: ALTHEA TOVAR [facility] : 1945 Age/S: 75/M [address] [facility] Unit #: [id number] Loc: [address] Phys: [place] [address] Acct: [id number] Dis Date: Status: ADM IN PHONE #: [phone] Exam Date: 09/02/2020 005 FAX #: [phone] Reason: NGT PLACEMENT EXAMS: CPT CODE: [id number] XR CHEST 1 V 96870 (Continued) Orig Print D/T: S: 09/02/2020 (0114) PAGE 2 Signed ReportRENAL FUNCTION [id number] 16:42:00 Test Item Value Reference Range Interpretation [...] code = PHOS) 1.9 mg/dl 2.5-4.9 L [id number] 16:42:00 Test Item Value Reference Range Interpretation Comments MAGNESIUM (test code = MAG) 1.9 mg/dl 1.8-2.4 N VANCOMYCIN [id number] 16:42:00 Test Item Value Reference Range Interpretation Comments VANCOMYCIN TROUGH 10.7 mcg/mL 10-20 N Other dise ase (test code = VANCT) associat ed reference ranges: 10 - 15 mcg/mL Cellulit is, urinary tract infection 15 - 20 mcg/mL Bacterem ia, infective endocarditis, osteomyelitis, meningitis, pneumonia, lizzy re skin/soft tissu e infection, spin al abscess Specimen comments: DRAW PRIOR AT 1600Comments to Rate Inserter: DRAW AT 1600, DO NOT CANCEL- XR CHEST 1 [id number] 10:50:00 [facility] : 1945 Sex: M FAX: Barbara Lund MD [phone] [place]: St: ADM FAX: Jeffery Gann [phone] Name: ALTHEA TOVAR JR [facility] : 1945 Age/S: 75/M [address] [facility] Unit #: [id number] Loc: [address] Phys: [place] [address] Acct: [id number] Dis Date: Status: ADM IN PHONE #: [phone] Exam Date: 09/01/2020 1039 FAX #: [phone] Reason: PICC PLACEMENT EXAMS: CPT CODE: [id number] XR CHEST 1 V 99219 Single View Chest. Location: S17 Clinical Indication: [...] and signed by: Noe Olivarez M.D. CC: Milton Mcintosh MD; Enedina Cantrell MD Technologist: RANDALL PATRICIA Trnscrd Date/Time/By: 09/01/2020 (1050) : By: [email or web address] PAGE 1 Signed Report FAX: Barbara Lund MD [phone] [place]: St: ADMFAX: Jeffery Gann [phone] Name: ALTHEA TOVAR JR [facility] : 1945 Age/S: 75/M [address] [facility] Unit #: [id number] Loc: EPOF[place], [place] Phys: Barbara Mcintosh [place] [address]Zxzt: [id number] Dis Date: Status: ADM IN PHONE #: [phone] Exam Date: 09/01/2020 1039 FAX #: [phone] Reason: PICC PLACEMENT EXAMS: CPT CODE: [id number] XR CHEST 1 V 73615 (Continued) Orig Print D/T: S: 09/01/2020 (1053) PAGE 2 Signed Report- XR CHEST 1 [id number] 07:56:00 [facility] 1945 Sex: M FAX: Jeffery Gann [phone] [place]: [address]: ADM Name: ALTHEA TOVAR [facility] : 1945 Age/S: 75/M [address] [facility] Unit #: [id number] Loc: [address] Phys: [place] [address] Acct: [id number] Dis Date: Status: ADM IN PHONE #: [phone] Exam Date: 09/01/2020 0535 FAX #: [phone] Reason: NG TUBE PLACEMENT EXAMS: CPT CODE: [id number] XR CHEST1 V 55747 EXAM: - XR CHEST 1 V Location code:C3 HISTORY: NG TUBE PLACEMENT COMPARISON: 08/31/2020 FINDINGS: Single AP view of the chest is provided. Endotracheal tube is unchanged. Enteric tube tip projects about the body of the stomach with side hole below the GE junction. No pneumothorax is seen. There is no new consolidation. No additional interval change. IMPRESSION: 1. Enteric tube tip projects about the body of the stomach with side hole below the GE junction. at 0756 Reported and signed by: Daniel Wilks M.D. CC: Enedina Cantrell MD Technologist: DAILY HIDALGO; ESVIN PENA Trnscrd Date/Time/By: 09/01/2020 (0756) : By: [email or web address] PAGE 1 Signed Report FAX: Jeffery Gann [phone] [place]: St: ADM ---- Name: ALTHEA TOVAR JR [facility] : 1945 Age/S: 75/M [address] [facility] Unit #: [id number] Loc: [address] Phys: [place] [address] Acct: [id number] Dis Date: Status: ADM IN PHONE #: [phone] Exam Date: 09/01/2020 0535 FAX #: [phone] Reason: NG TUBE PLACEMENT EXAMS: CPT CODE: [id number] XR CHEST 1 V 72217 (Continued) Orig Print D/T: S: 09/01/2020 (0759) PAGE 2 Signed ReportCOMPREHENSIVE METABOLIC [id number] 06:08:00 Test Item Value Reference Range Interpretation [...] 60 Units/L 50.0-136.0 N code = ALKP) [id number] 06:08:00 Test Item Value Reference Range Interpretation Comments LIPASE (test code = LIP) 680 Units/L 65.0-230.0 H [id number] 06:08:00 Test Item Value Reference Range Interpretation Comments MAGNESIUM (test code = MAG) 2.1 mg/dl 1.8-2.4 N CBC W/AUTO [id number] 06:00:00 Test Item Value Reference Range Interpretation [...] X10 3uL 0.00-0.01 H NRBC#) RENAL FUNCTION [id number] 03:22:00 Test Item Value Reference Range Interpretation [...] code = PHOS) 0.7 mg/dl 2.5-4.9 LL [id number] 03:22:00 Test Item Value Reference Range Interpretation Comments MAGNESIUM (test code = MAG) 2.2 mg/dl 1.8-2.4 N UA RFLX MICR CULT IF [id number] 23:09:00 Test Item Value Reference Range Interpretation [...] culture: RiskForSepsis-no oth srcSpecimen Description: CATHETERCath Status: Under 72 hoursUA RFLX MICR CULT IF [id number] 22:51:00 Test Item Value Reference Range Interpretation [...] culture: RiskForSepsis-no oth srcSpecimen Description: CATHETERCath Status: Under 72 hoursBASIC METABOLIC [id number] 20:55:00 Test Item Value Reference Range Interpretation [...] code = 8.9 mg/dl 8.0-10.5 N CA) [id number] 20:55:00 Test Item Value Reference Range Interpretation Comments MAGNESIUM (test code = MAG) 1.6 mg/dl 1.8-2.4 L [id number] 19:52:00 Test Item Value Reference Range Interpretation Comments GLUBED (test code = GLUBED) 158 mg/dL 70-110 H [id number] 19:52:00 Test Item Value Reference Range Interpretation Comments GLUBED (test code = GLUBED) 149 mg/dL 70-110 H BASIC METABOLIC [id number] 15:30:00 Test Item Value Reference Range Interpretation [...] 8.1 mg/dl 8.0-10.5 N CA) BASIC METABOLIC [id number] 15:29:00 Test Item Value Reference Range Interpretation [...] code = CA) 8.1 mg/dl 8.0-10.5 N [id number] 14:06:00 Test Item Value Reference Range Interpretation Comments GLUBED (test code = GLUBED) 143 mg/dL 70-110 H [id number] 14:05:00 Test Item Value Reference Range Interpretation Comments GLUBED (test code = GLUBED) 182 mg/dL 70-110 H [id number] 14:02:00 Test Item Value Reference Range Interpretation Comments GLUBED (test code = GLUBED) 138 mg/dL 70-110 H LACTIC ACID [id number] 12:16:00 Test Item Value Reference Range Interpretation Comments LACTIC ACID REPEAT (test code = 2.1 mmol/L 0.4-2.0 H LACTR) NURSE DRAW, COVID ER BED 1ARTERIAL BLOOD [id number] 12:08:00 Test Item Value Reference Range Interpretation [...] N N ORMAL METHGB) <2.0POTENTIALLY TOXIC >20.0 PaO2/[id number] 12:08:00 Test Item Value Reference Range Interpretation Comments PaO2/FiO2 (test code = FDO1VLF3) 352.00 mm/Hg ARTERIAL BLOOD [id number] 12:07:00 Test Item Value Reference Range Interpretation [...] N N ORMAL METHGB) <2.0POTENTIALLY TOXIC >20.0 PaO2/[id number] 12:07:00 Test Item Value Reference Range Interpretation Comments PaO2/FiO2 (test code = IIQ9JXE6) mm/Hg [id number] 11:12:00 Test Item Value Reference Range Interpretation Comments GLUBED (test code = GLUBED) 141 mg/dL 70-110 H BASIC METABOLIC [id number] 10:40:00 Test Item Value Reference Range Interpretation [...] code = CA) 7.5 mg/dl 8.0-10.5 L [id number] 09:47:00 Test Item Value Reference Range Interpretation Comments GLUBED (test code = GLUBED) 162 mg/dL 70-110 H [id number] 09:34:00 Test Item Value Reference Range Interpretation Comments GLUBED (test code = GLUBED) 191 mg/dL 70-110 H [id number] 09:34:00 Test Item Value Reference Range Interpretation Comments GLUBED (test code = GLUBED) 204 mg/dL 70-110 H - CT ABD PELVIS W/O [id number] 08:32:00 [facility] : 1945 Sex: M FAX: Jeffery Gann [phone] [place]: [address]: ADM Name: ALTHEA TOVAR [facility] : 1945 Age/S: 75/M [address] [facility] Unit: [id number] Loc: [place], [place]: [place] [address] Acct: [id number] Dis Date: Status: ADM IN PHONE #: [phone] Exam Date: 08/31/2020527 FAX #: [phone] Reason: pancreatitis EXAMS: CPT CODE: [id number] CT ABD PELVIS W/O CONT 02405 Dictation location: U19. CT ABDOMEN AND PELVIS WITHOUT IV CONTRAST HISTORY: pancreatitis COMPARISON: None. TECHNIQUE: Axial CT images of the abdomen and pelvis were obtained with coronal and/or sagittal reformatted views. Automated exposure control, iterative reconstruction technique,and/or adjustment of mA and/or kV according to patient's size was utilized for radiation dose reduction. IV CONTRAST: None. PO CONTRAST: None. Lack of IV contrast limits evaluation of the parenchyma and vasculature. FINDINGS: Mild dependent atelectasis present bilaterally. 3 mm nodule noted [...] The larger one measuring 2.2 cm may alsobe mildly complex. There are at least 2 [...] 1 Signed Report (CONTINUED) FAX: Jeffery Gann [phone] [place]: St: ADM Name: GUYALTHEA KELLEY [facility] : 1945 Age/S: 75/M[address] [facility] Unit: [id number] Loc: [place], [place]: [place] [address] Acct: [id number] Dis Date: Status: ADM IN PHONE #: [phone] Exam Date: FAX #: [phone] Reason: pancreatitis EXAMS: CPT CODE: [id number] CT ABD PELVIS W/O CONT 84387 (Continued) Atherosclerotic calcifications affect the aorta and its branches. Right common femoralvenous catheter extending into the iliac vein. Air is noted within the common femoral vein likely related to the catheter. Small fat-containing umbilical hernia. No abdominal or pelvic adenopathy. Moderate to severe lumbar spondylosis. Severe degenerative changes affect the right hip. IMPRESSION: Inflammatory changes along the pancreas consistent with acute pancreatitis. No fluid collection. Hepatic steatosis. Multiple bilateral renal cysts. Several on the left are likely complex. Recommend follow-up nonemergent renal ultrasound. at 0832 Reported and signed by: Bob Kohli M.D. CC: Enedina Cantrell MD Technologist: JABARI STREETER Trnscrd Dt/Tm: 08/31/2020 (0832) [email or web address] Orig Print D/T: S: 08/31/2020 (8844 PAGE 2 Signed Report- XR CHEST 1 [id number] 08:23:00 [facility] : 1945 Sex: M FAX: Michael Holm MD [phone] [place]: St: [facility] FAX: Jeffery Gann [phone] Name: ARLEN TOVARFORD ALLIE [facility] : 1945 Age/S: 75/M [address] [facility] Unit #: [id number]: [place], [place]: [place] [address] Acct: [id number] Dis Date: Status: ADMIN PHONE #: [phone] Exam Date: 08/31/2020530 FAX #: [phone] Reason: respiratory failure EXAMS: CPT CODE: [id number] XR CHEST 1 V 55515 Dictation location: U19. CHEST, FRONTAL VIEW HISTORY:respiratory failure FINDINGS: Since 08/30/20, endotracheal is in good position. Nasogastric tube is retracted with the proximal port in the distal esophagus and needs to be advanced an additional 9 cm.The lungs are clear. The heart size is normal. The bones are intact. Several wires overlie the chest. IMPRESSION: Interval retraction of the nasogastric tube now predominantly within the distal esophagus and needs to be advanced an additional 9 cm. at 0823 Reported and signed by: Bob Kohli M.D. CC: Michael Llamas MD; Enedina Cantrell MD Technologist: ESVIN Luscrd Date/Time/By: 08/31/2020 (822) : By: [email or web address] PAGE 1 Signed Report FAX: Michael Holm MD [phone] [place]: St: [facility] FAX: Karla Jeffery Cantrell [phone] Name: ALTHEA TOVAR [facility] : 1945 Age/S: 75/M [address] [facility] Unit #: [id number] Loc: [place], [place]: [place] [address] Acct: [id number] Dis Date: Status: ADM IN PHONE #: [phone] Exam Date: 08/31/2020530 FAX #: [phone] Reason: respiratory failure EXAMS: CPT CODE: [id number] XR CHEST 1 V 34760 (Continued) Orig Print D/T: S: 08/31/2020 (825) PAGE 2 Signed Report- CT C-SPINE W/O [id number] 08:18:00[facility] : 1945 Sex: M FAX: Michael Holm MD [phone] [place]: St: [facility] FAX: Jeffery Gann [phone] Name: ALTHEA TOVAR JR [facility] : 1945 Age/S: 75/M [address] [facility] Unit: [id number] Loc: [place], [place]: [place] [address] Acct: [id number] Dis Date: Status: ADM IN PHONE #: [phone] Exam Date: 08/31/2020527 FAX #: [phone] Reason: AMS EXAMS: CPT CODE: [id number] CT C-SPINE W/O CONT 29521 Dictation location: U19. CT CERVICAL SPINE WITHOUT CONTRAST; SAGITTAL AND CORONAL REFORMATTED VIEWS. HISTORY: AMS COMPARISON :None. TECHNIQUE: Axial CT images of the cervical spine were obtained with coronal and sagittal reformatted views. Automated exposure control,iterative reconstruction technique, and/or adjustment of mA and/or [...] narrowing. An endotracheal and nasogastric tubes are noted.Extensive atherosclerotic calcifications are seen along the carotid vessels bilaterally. IMPRESSION: No cervical spine fracture. Cervical spondylosis with severe spinal canal stenosis at C6-C7. at 0818 Reported and signed by: Bob Kohli M.D. PAGE 1 Signed Report (CONTINUED) FAX: Michael Holm MD [phone] [place]: St: ADM FAX: Jeffery Gann [phone] Name: ALTHEA TOVAR [facility] : 1945 Age/S: 75/M [address] [facility] Unit: [id number] Loc: [place], [place]: [place] [address] Acct: [id number] Dis Date: Status: ADM IN PHONE #: [phone] Exam Date: 08/31/2020527 FAX #: [phone] Reason: AMS EXAMS: CPT CODE: [id number] CT C-SPINE W/O CONT 32123 (Continued) CC: Michael Llamas MD; Enedina Cantrell MD Technologist: JABARI Cabrales Dt/Tm: 08/31/2020 (0818) [email or web address] Orig Print D/T: S: 08/31/2020 (0821 PAGE 2 Signed Report- CT HEAD/BRAIN W/O [id number] 08:16:00 [facility] [place] [facility] : 1945 Sex: M FAX: Michael Holm MD [phone] [place]: St: [facility] FAX: Jeffery Gann [phone] Name: ALTHEA TOVAR JR [facility] : 1945 Age/S: 75/M [address] [facility] Unit: [id number] Loc: [place], [place]: [place] [address] Acct: [id number] Dis Date: Status: ADM IN PHONE #: [phone] Exam Date: 08/31/2020527 FAX #: [phone] Reason: AMS EXAMS: CPT CODE:[id number] CT HEAD/BRAIN W/O CONT 44999 Dictation location: U19. CT HEAD WITHOUT CONTRAST. HISTORY: AMS COMPARISON: No comparison is available. TECHNIQUE: Axial CT images of the head were obtained with coronal and/or sagittal reformatted views. Automated exposure control, iterative reconstruction technique, and/or adjustment of mA and/or kV according to patient's size was utilized for radiation dose reduction. IV CONTRAST: None. FINDINGS: Mild amount of periventricular and deep white matter hypodensities are seen, these are most commonly associated with chronic, microvascular ischemic changes. Mildto moderate atrophy is noted. Atherosclerotic calcifications affect the carotid siphons. No other intracranial abnormalities such as hemorrhage, mass, mass effect, hydrocephalus, midline shift, extra-axial fluid collection or secondary signs of an acute infarct are noted. The calvarium and skull base are intact. Right mastoid effusion. Mild thickening of the ethmoid sinuses. IMPRESSION: No evidence of acute intracranial abnormality. Chronic microvascular ischemic changes and atrophy. at 0816 Reported and signed by: Bob Kohli M.D. PAGE 1 Signed Report (CONTINUED) FAX: Michael Holm MD [phone] [place]: [facility] t: ADM FAX: Jeffery Gann [phone] Name: ALTHEA TOVAR JR [facility] : 1945 Age/S: 75/M [address] [facility] Unit: [id number] Loc: [place], [place] Phys: Michael Llamas MD77591 Acct: [id number] Dis Date: Status: ADM IN PHONE #: [phone] Exam Date: 08/31/2020527 FAX #: [phone] Reason: AMS EXAMS: CPT CODE: [id number] CT HEAD/BRAIN W/O CONT 80248 (Continued) CC: Michael Llamas MD; Enedina Cantrell MD Technologist: JABARI Cabrales Dt/Tm: 08/31/2020 (0816) [email or web address] Orig Print D/T: S: 08/31/2020 (0820 PAGE 2 Signed [id number] 06:20:00 Test Item Value Reference Range Interpretation Comments GLUBED (test code = GLUBED) 328 mg/dL 70-110 H COMPREHENSIVE METABOLIC [id number] 04:54:00 Test Item Value Reference Range Interpretation [...] 50.0-136.0 N code = ALKP) NURSE DRAW, [facility], ER BED [id number] 04:54:00 Test Item Value Reference Range Interpretation Comments LIPASE (test code = LIP) 4842 Units/L 65.0-230.0 H NURSE DRAW, [facility], ER BED [id number] 04:49:00 Test Item Value Reference Range Interpretation Comments GLUBED (test code = GLUBED) 209 mg/dL 70-110 H [id number] 04:49:00 Test Item Value Reference Range Interpretation Comments GLUBED (test code = GLUBED) 198 mg/dL 70-110 H [id number] 04:49:00 Test Item Value Reference Range Interpretation Comments GLUBED (test code = GLUBED) 230 mg/dL 70-110 H [id number] 04:49:00 Test Item Value Reference Range Interpretation Comments GLUBED (test code = GLUBED) 204 mg/dL 70-110 H [id number] 04:49:00 Test Item Value Reference Range Interpretation Comments GLUBED (test code = GLUBED) 243 mg/dL 70-110 H [id number] 04:49:00 Test Item Value Reference Range Interpretation Comments GLUBED (test code = GLUBED) 255 mg/dL 70-110 H [id number] 04:49:00 Test Item Value Reference Range Interpretation Comments GLUBED (test code = GLUBED) 263 mg/dL 70-110 H COMPREHENSIVE METABOLIC [id number] 04:45:00 Test Item Value Reference Range Interpretation [...] = ALKP) NURSE DRAW, COVID, ER BED [id number] 04:45:00 Test Item Value Reference Range Interpretation Comments LIPASE (test code = LIP) Units/L 65.0-230.0 NURSE DRAW, COVID, ER BED [id number] 04:41:00 Test Item Value Reference Range Interpretation Comments HGBA1C% (test code = HGBA1C%) 7.4 %A1C 4.8-6.0 H ESTIMATED AVERAGE GLUCOSE (test 166 MG/DL code = EAG) NURSE DRAW, [facility] BEDS AT [facility], ER BED 1CBC W/AUTO [id number] 04:29:00 Test Item Value Reference Range Interpretation [...] 0.00-0.01 H NRBC#) NURSE DRAW, COVID ER [id number] 03:05:00 Test Item Value Reference Range Interpretation Comments MAGNESIUM (test code = MAG) 2.0 mg/dl 1.8-2.4 N BASIC METABOLIC [id number] 02:23:00 Test Item Value Reference Range Interpretation [...] N NURSE DRAW, COVID ER BED 1LACTIC [id number] 23:51:00 Test Item Value Reference Range Interpretation Comments LACTIC ACID (test code = LACT) 2.5 MMOL/L 0.4-2.0 H BASIC METABOLIC [id number] 23:40:00 Test Item Value Reference Range Interpretation [...] = CA) 8.4 mg/dl 8.0-10.5 N ACETONE [id number] 22:36:00 Test Item Value Reference Range Interpretation Comments ACETONE BLOOD (test code = ACETB) MODERATE NEGATIVE [id number] 21:54:00 Test Item Value Reference Range Interpretation Comments GLUBED (test code = GLUBED) 411 mg/dL 70-110 H LACTIC [id number] 21:06:00 Test Item Value Reference Range Interpretation Comments LACTIC ACID (test code = LACT) 1.8 MMOL/L 0.4-2.0 N Coronavirus 2019 nCoV [id number] 21:01:00 Test Item Value Reference Range Interpretation Comments Coronavirus 2019 Negative NEGATIVE Negative re sults should be nCoV Bedside (test treated a s presumptive and code = ifinconsistent with [id number]) clinical signs and symptoms, or ne cessaryfor patient managem ent, should be tested with an alternativemole cular assay. Negative result s do not preclude STRZ-JdB-2tzkae tion and should not be u sed as the sole basis forp atient management deci sions. Negative result s should beconsidered in the context of a patient's recent exposures,histo ry, presence of clinical sig ns and symptoms consis tentwith COVID-19. RENAL FUNCTION [id number] 20:59:00 Test Item Value Reference Range Interpretation [...] anion gap less than or equal toComments to Rate Inserter: 12 mEq/L, then every [id number] 20:59:00 Test Item Value Reference Range Interpretation Comments MAGNESIUM (test code = MAG) 2.2 mg/dl 1.8-2.4 N Specimen comments: Every 6 hours until anion gap less than or equal toComments to Rate Inserter: 12 mEq/L, then every morningARTERIAL BLOOD [id number] 20:47:00 Test Item Value Reference Range Interpretation Comments ARTERIAL BLOOD GAS PH 6.970 7.350-7.450 LL Result s called (test code = PHA) to and nenita d back by Rashard 20:47 - 08/30/2020; by Sandee ARTERIAL BLOOD GAS PCO2 46.7 mmHg 35.0-45.0 [...] NOR MAL = METHGB) <2.0POTENTIALLY TOXIC >20.0 PaO2/[id number] 20:47:00 Test Item Value Reference Range Interpretation Comments PaO2/FiO2 (test code = [id number]) mm/Hg ARTERIAL BLOOD [id number] 20:47:00 Test Item Value Reference Range Interpretation Comments ARTERIAL BLOOD GAS PH 6.970 7.350-7.450 LL Result s called (test code = PHA) to and nenita d back by Rashard 20:47 - 08/30/2020; by [facility] ARTERIAL BLOOD GAS PCO2 46.7 mmHg 35.0-45.0 [...] NOR MAL = METHGB) <2.0POTENTIALLY TOXIC >20.0 PaO2/[id number] 20:47:00 Test Item Value Reference Range Interpretation Comments PaO2/FiO2 (test code = SXZ1RFA7) 351.00 mm/Hg CBC W/AUTO [id number] 20:44:00 Test Item Value Reference Range Interpretation [...] 0.00-0.01 H NRBC#) - XR CHEST 1 [id number] 20:36:00 [facility] : 1945 Sex: M FAX: Flavio Franklin MD [phone] [place]: [address]: REG Name: ALTHEA TOVAR JR [facility] : 1945 Age/S: 75/M [address] [facility] Unit #: [id number] Loc: [place], [place]: [place] [address] Acct: [id number] Dis Date: Status: REG ER PHONE #: [phone] Exam Date: 08/30/202032 FAX #: [phone] Reason: intubated EXAMS: CPT CODE: [id number] XR CHEST 1 V 23881 EXAM: CHEST ONE VIEW INDICATION: intubated LOCATION: B2 COMPARISON: None available TECHNIQUE: AP view of the chest FINDINGS: Tip of the endotracheal tube is 4.3 cm above the bela. Tip of the enteric tube overlies the stomach. The heart size is normal. There are mild parenchymal opacities in left lung base.No pneumothorax or pleural effusion is identified. The osseous structures are normal. IMPRESSION: Mild parenchymal opacities in the left lung base which may represent a mild acute infectious process. at 2035 Reported and signedby: Gina Vallejo M.D. CC: Flavio Franklin MD Technologist: AMBIKA MEEKS Trnscrd Date/Time/By: 08/30/2020 (2035) : By: [email or web address] PAGE 1 Signed Report FAX: Flavio Franklin MD [phone] [place]: St: REG -- Name: ALTHEA TOVAR JR [facility] : 1945 Age/S: 75/M [address] [facility] Unit #[facility] [id number] Loc: [place], [place] Phys: [place] [address] Acct: [id number] Dis Date: Status: REG ER PHONE #: [phone] Exam Date: 08/30/20202032 FAX #: [phone] Reason: intub ated EXAMS: CPT CODE: [id number] XR CHEST 1 V 69002 (Continued) Orig Print D/T: S: 08/30/2020 (2039)PAGE 2 Signed ReportCT, CTA AAA, W/ CHARLEE.EXT.[id number] 16:25:00[facility] : 1945 Sex: [...] MDReport Verified Date/Time: 08/12/2020 16:25:56 Reading Location: [facility] Radiology Reading RoomAddendum EndsFINAL REPORT CTA AAA with bilateral external runoff - 08/10/2020 8:39 AM. Comparison: None available History: 75 years old Male with acute limb ischemia and suspected severe peripheral vascular disease. Evaluated for further treatment options. Indication: Clinically suspected peripheral vascular disease. This study is performed in an attempt to avoid an invasive procedure. Technique: Multi- detector CT technology was employed (Snowshoefood CT 660 scanner). Spiral acquisition before and during intravenous contrast administration. Images were obtained before and during the dynamic passage of intravenous contrast material. Multi- planar 3-D volume-rendering reconstruction was performed using an independent workstationinteractively by the interpreting physician as well as the 3-D specialist for optimal visualization of the abdominal aorta, pelvic arteries as well as its branches, along with bilateral lower extremityvasculature. Please refer to the contrast sheet scanned in the EPIC system for the amount and route of contrast given. This exam was performed according to our departmental dose- optimization programme,which includes automated exposure control, adjustment of the mA and/or kV according to patient size and/or use of iterative reconstruction technique. Dose modulation, iterative reconstruction, and/or we ight based adjustment of the mA/kV was utilized to reduce the radiation dose to as low as reasonablyachievable. RESULT: Potential study limitations: None. LIMITED CHEST:The [...] as dissection, intramural hematoma, or contained rupture. Licensing Court Magistrate dimensions of the abdominal aorta are as follows: *2.1 cm at the supra-mesenteric segment*2.0 cm at the mesenteric segment*1.9 cmat the renal segment*1.4 cm at the infrarenal segment*1.4 cm at the aortic bifurcation The right common iliac artery has posteriorly predominant moderate calcific atherosclerotic changes with a minimalluminal diameter measuring 6.8 x 8.8 mm. The right external iliac artery is normal in course caliberand contour with minimal calcific atherosclerotic changes with a minimal luminal diameter measuring 7.6 x 8.0 mm. The right common femoral artery has severe protruding calcification involving the distal segment before the bifurcation leading to at least moderate luminal stenosis with a minimal luminaldiameter measuring 2.8 x 3.3 mm. The left common iliac artery has mild to moderate calcification with a minimal luminal diameter measuring 6.1 x 7.6 mm. The left external iliac artery is patent with mild to moderate calcific atherosclerotic changes. The distal segment of the left common femoral arteryhas severe protruding calcification just before its bifurcation [...] no circumferential calcification though no significant luminal sten osis. The left tibioperoneal trunk is widely patent. [...] popliteal artery is normal caliber with minimal calc ification and no evidence of luminal stenosis. The [...] abdomen, the liver and spleen appears unremarkable. Noabnormal enhancing structure is identified. The gallbladder and pancreas appears grossly normal. Theadrenal glands are not enlarged. The kidneys are normal in size and shape. No hydronephrosis or perirenal fluid collection is identified. There are simple appearing renal cysts at the upper pole of theleft and lower pole of the right kidneys, [...] its bifurcation leading to moderate to severe luminalstenosis with minimal luminal diameter measuring 2.1 x 3.5 mm. 3. Mid right SFA has severe protruding calcification with at least moderate to severe luminal stenosis with another similar protruding calcification at its distal segment with again a moderate luminal stenosis noted. 4. The right poplitealartery is severely calcified with moderate to severe luminal stenosis at its mid segment. An addendum will be dictated regarding the non-vascular findings by the Printing Worker Supervisor Radiologists. Signed: Buck Sears Verified Date/Time: 08/10/2020 14:41:04 Reading Location: [place] [address] CT Reading Room [id number] 12:09:00 Test Item Value Reference Range Interpretation Comments POC-CREATININE 0.8 mg/dL 0.6-1.3 : TESTED AT [facility] ([facility]) (test [address] [facility] code = 1859) [place], [address]: Clay Pigeon Setter/Techni sandip ID = [id number] for Aretha Diallo POC-EGFR ([facility]) 94 mL/min/1.73M2 (test code = 1860) PLATELET AGGREGATION: FUNCTION [id number] 14:06:00 Test Item Value Reference Range Interpretation Comments [id number] Daily Pina MD ([facility]) (test code = (electronic signature) 2461) PLATELET COUNT AGG 222 K/CU MM 150-450 ([facility]) (test code = 3416) ADP ([facility]) (test code 6 % 62-100 L = 4654) PLATELET RICH 278 k/cu mm 200-300 PLASMA([facility]) (test code = 2134) PLATELET FUNCTION Pattern of SCREEN INTERPRETATION disaggregation present ([facility]) (test code = with ADP which may be 4655) characteristic of P2Y12 inhibitor effect. Correlation with medication history is required. Platelet Function Screen results may be falsely low with platelet counts<75,000/cu mm.Clay Pigeon Setter ID- [id number]-GLUCOSE [id number] 08:14:00 Test Item Value Reference Range Interpretation Comments POC-GLUCOSE METER 148 mg/dL 70-110 H : TESTED A T [facility] 67[address] (BEAKER) (test code = [place] [place], [address]) [address]: Clay Pigeon Setter/Techni sandip ID = [id number] for CHAVO MAHMOOD [id number] 06:48:00 Test Item Value Reference Range Interpretation Comments PHOSPHORUS (BEAKER) (test code = 2.5 mg/dL 2.3-4.7 604) Clay Pigeon Setter ID - AWLDO [id number] 06:48:00 Test Item Value Reference Range Interpretation Comments MAGNESIUM (BEAKER) (test code = 2.4 mg/dL 1.6-2.6 627) Clay Pigeon Setter ID - WALDO LBASIC METABOLIC [id number] 06:48:00 Test Item Value Reference Range Interpretation [...] 697) EGFR (BEAKER) (test 80 mL/min/1.73 ESTIMA [place]ENIX GFR IS code = 1092) sq m NOT ACCURATE CREATININE CLEARANCE IN PREDICTING GLOMERULAR FILTRATION RATE . ESTIMATED GFR I S NOT APPLICABLE FOR DIALYSIS PATIEN TS. Clay Pigeon Setter ID - KATHYAYA LCBC W/PLT COUNT & AUTO [id number] 06:11:00 Test Item Value Reference Range Interpretation [...] 417) IMMATURE GRANULOCYTES-RELATIVE 1 % 0-1 PERCENT (BEGEOVANNI) (test code = 2801) POCT-GLUCOSE [id number] 21:40:00 Test Item Value Reference Range Interpretation Comments POC-GLUCOSE METER 168 mg/dL 70-110 H : TESTED A T [facility] 67[address] (BEGEOVANNI) (test code = BRENDA Dykes [facility], 1538) [address]: Clay Pigeon Setter/Techni sandip ID = [id number] for MARCE MIRANDA POCT-GLUCOSE [id number] 17:04:00 Test Item Value Reference Range Interpretation Comments POC-GLUCOSE METER 159 mg/dL 70-110 H : Notified RN/MD: ([facility]) (test code = TESTED AT [place] [address]38) [facility], [address]: Clay Pigeon Setter/Techni sandip ID = [id number] for ROMINA RODRIGUEZ POCT-GLUCOSE [id number] 11:29:00 Test Item Value Reference Range Interpretation Comments POC-GLUCOSE METER 151 mg/dL 70-110 H : Notified RN/MD: (JUSTINE) (test code = TESTED AT [place] [address] 1538) [facility], [address]: Clay Pigeon Setter/Techni sandip ID = [id number] for ROMINA RODRIGUEZ POCT-GLUCOSE [id number] 10:17:00 Test Item Value Reference Range Interpretation Comments POC-GLUCOSE METER 167 mg/dL 70-110 H : Notified RN/MD: (JUSTINE) (test code = TESTED AT [place] [address] 1538) [facility], [address]: Clay Pigeon Setter/Techni sandip ID = [id number] for ROMINA RODRIGUEZ [id number] 08:36:00 Test Item Value Reference Range Interpretation Comments PHOSPHORUS (BEAKER) (test code = 2.4 mg/dL 2.3-4.7 604) Clay Pigeon Setter ID - SANDY [id number] 08:36:00 Test Item Value Reference Range Interpretation Comments MAGNESIUM (BEAKER) (test code = 2.3 mg/dL 1.6-2.6 627) Clay Pigeon Setter ID - SANDY FBASIC METABOLIC [id number] 08:36:00 Test Item Value Reference Range Interpretation [...] 697) EGFR (BEAKER) (test 81 mL/min/1.73 ESTIMA [place] GFR IS code = 1092) sq m NOT ACCURATE CREATININE CLEARANCE IN PREDICTING GLOMERULAR FILTRATION RATE . ESTIMATED GFR I S NOT APPLICABLE FOR DIALYSIS PATIEN TS. Clay Pigeon Setter ID - SANDY FPOCT-GLUCOSE [id number] 08:10:00 Test Item Value Reference Range Interpretation Comments POC-GLUCOSE METER 166 mg/dL 70-110 H : TESTED A T [facility] 6720 (BEAKER) (test code = [facility], 1538) [address]: Clay Pigeon Setter/Techni sandip ID = [id number] for ROMINA RODRIGUEZ HEMOGLOBIN [id number] 08:09:00 Test Item Value Reference Range Interpretation Comments HEMOGLOBIN A1C (BEAKER) (test code = 8.8 % 4.3-6.1 H 368) POCT-GLUCOSE [id number] 07:42:00 Test Item Value Reference Range Interpretation Comments POC-GLUCOSE METER 181 mg/dL 70-110 H : TESTED A T [facility] 6720 (BEAKER) (test code = [facility], 1538) [address]: Clay Pigeon Setter/Techni sandip ID = [id number] for ROMINA RODRIGUEZ RAD, CHEST, 1 VIEW, NON [id number] 07:27:00Reason for exam:->s/p PCI, impella removalShould this be performed at the bedside?->YesFINAL REPORT CLINICAL HISTORY: s/p PCI, impella removal TECHNIQUE: 1 view of the chest. COMPARISON: 12/16/2019 IMPRESSION: There are no focal infiltrates or effusions. The cardiomediastinal silhouette is magnified by technique. The osseous structures appear intact. There is mild elevation of the right hemidiaphragm. Signed: Dorothy Nureport Verified Date/Time: 02/23/2020 07:27:25 Reading Location: [facility] Radiology Reading Room POCT-GLUCOSE [id number] 06:27:00 Test Item Value Reference Range Interpretation Comments POC-GLUCOSE METER 150 mg/dL 70-110 H : TESTED A T [facility] 6720 (BEAKER) (test code = [facility], 1538) [address]: Clay Pigeon Setter/Techni sandip ID = [id number] for SYLVIA ELLIS POCT-GLUCOSE [id number] 05:06:00 Test Item Value Reference Range Interpretation Comments POC-GLUCOSE METER 136 mg/dL 70-110 H : TESTED A T [facility] 6720 (BEAKER) (test code = [facility] [employer] [facility], 1538) [address]: Clay Pigeon Setter/Techni sandip ID = [id number] for SYLVIA ELLIS LACTIC ACID, [id number] 04:40:00 Test Item Value Reference Range Interpretation Comments LACTATE BLOOD ARTERIAL (2) 1.2 mmol/L 0.5-2.2 (BEAKER) (test code = 2874) Clay Pigeon Setter ID - ARLENE GORE, [id number] 04:27:00 Test Item Value Reference Range Interpretation Comments KETONES, BLOOD (BEAKER) (test code 0.8 mmol/L <0.4 H = 1103) POCT-GLUCOSE [id number] 04:19:00 Test Item Value Reference Range Interpretation Comments POC-GLUCOSE METER 170 mg/dL 70-110 H : TESTED A T [facility] 6720 (BEAKER) (test code = [facility] [employer] [facility], 1538) [address]: Clay Pigeon Setter/Techni sandip ID = [id number] for SYLVIA ELLIS LACTATE DEHYDROGENASE (LDH)2020-02-23 04:06:00 Test Item Value Reference Range Interpretation Comments LACTATE DEHYDROGENASE (BEAKER) (test 245 U/L 125-220 H code = 635) Clay Pigeon Setter ID Jose GAONA [id number] 03:59:00 Test Item Value Reference Range Interpretation Comments MAGNESIUM (BEAKER) (test code = 2.3 mg/dL 1.6-2.6 627) Clay Pigeon Setter ID Jose MEIERASIC METABOLIC [id number] 03:59:00 Test Item Value Reference Range Interpretation [...] 697) EGFR (BEAKER) (test 78 mL/min/1.73 ESTIMA [place] GFR IS code = 1092) sq m NOT ACCURATE CREATININE CLEARANCE IN PREDICTING GLOMERULAR FILTRATION RATE . ESTIMATED GFR I S NOT APPLICABLE FOR DIALYSIS PATIEN TS. Clay Pigeon Setter ID Jose JACOBS WLACTATE DEHYDROGENASE (LDH)2020-02-23 03:59:00 Test Item Value Reference Range Interpretation Comments LACTATE DEHYDROGENASE (BEAKER) (test 201 U/L 125-220 code = 635) Clay Pigeon Setter ID Jose MEIERLOOD GAS, [id number] 03:46:00 Test Item Value Reference Range Interpretation [...] 0-0 (BEAKER) (test code = 413) POCT-GLUCOSE [id number] 03:30:00 Test Item Value Reference Range Interpretation Comments POC-GLUCOSE METER 174 mg/dL 70-110 H : TESTED A T [facility] 6720 (BEAKER) (test code = BRENDA Dykes [facility], 1538) [address]: Clay Pigeon Setter/Techni sandip ID = [id number] for SYLVIA ELLIS POCT-GLUCOSE [id number] 02:16:00 Test Item Value Reference Range Interpretation Comments POC-GLUCOSE METER 153 mg/dL 70-110 H : TESTED A T [facility] 6720 (BEAKER) (test code = [place], 1538) [address]: Clay Pigeon Setter/Techni sandip ID = [id number] for SYLVIA ELLIS POCT-GLUCOSE [id number] 01:23:00 Test Item Value Reference Range Interpretation Comments POC-GLUCOSE METER 145 mg/dL 70-110 H : TESTED A T [facility] 67[address] (BEAKER) (test code = BRENDA [facility]kes [facility], 1538) [address]: Clay Pigeon Setter/Techni sandip ID = [id number] for SYLVIA ELLIS [id number] 00:59:00 Test Item Value Reference Range Interpretation Comments PHOSPHORUS (BEAKER) (test code = 2.3 mg/dL 2.3-4.7 604) Clay Pigeon Setter ID - [id number] 00:59:00 Test Item Value Reference Range Interpretation Comments MAGNESIUM (BEAKER) (test code = 2.5 mg/dL 1.6-2.6 627) Clay Pigeon Setter ID - DBBASIC METABOLIC [id number] 00:59:00 Test Item Value Reference Range Interpretation [...] 697) EGFR (BEAKER) (test 73 mL/min/1.73 ESTIMA [place] GFR IS code = 1092) sq m NOT ACCURATE CREATININE CLEARANCE IN PREDICTING GLOMERULAR FILTRATION RATE . ESTIMATED GFR I S NOT APPLICABLE FOR DIALYSIS PATIEN TS. Clay Pigeon Setter ID - DBLACTIC ACID, [id number] 00:55:00 Test Item Value Reference Range Interpretation Comments LACTATE BLOOD VENOUS (2) (BEAKER) 1.65 mmol/L 0.50-2.20 (test code = 2872) Clay Pigeon Setter ID - DBPOCT-GLUCOSE [id number] 00:23:00 Test Item Value Reference Range Interpretation Comments POC-GLUCOSE METER 154 mg/dL 70-110 H : TESTED A T [facility] 67[address] (BEAKER) (test code = BRENDA Dykes [facility], 1538) [address]: Clay Pigeon Setter/Techni sandip ID = [id number] for SYLVIA ELLIS BASIC METABOLIC [id number] 21:52:00 Test Item Value Reference Range Interpretation [...] 697) EGFR (BEAKER) (test 72 mL/min/1.73 ESTIMA [place] GFR IS code = 1092) sq m NOT ACCURATE CREATININE CLEARANCE IN PREDICTING GLOMERULAR FILTRATION RATE . ESTIMATED GFR I S NOT APPLICABLE FOR DIALYSIS PATIEN TS. Clay Pigeon Setter ID - DBLACTIC ACID, [id number] 21:49:00 Test Item Value Reference Range Interpretation Comments LACTATE BLOOD ARTERIAL (2) 2.9 mmol/L 0.5-2.2 H (BEAKER) (test code = 2874) Clay Pigeon Setter ID - DBKETONE, [id number] 21:41:00 Test Item Value Reference Range Interpretation Comments KETONES, BLOOD (BEAKER) (test code 1.6 mmol/L <0.4 H = 1103) BLOOD GAS, [id number] 21:33:00 Test Item Value Reference Range Interpretation [...] (test code = 1819) 36.0 % POCT-GLUCOSE [id number] 21:11:00 Test Item Value Reference Range Interpretation Comments POC-GLUCOSE METER 232 mg/dL 70-110 H : TESTED A T [facility] 6720 (BEAKER) (test code = [facility], 1538) [address]: Clay Pigeon Setter/Techni sandip ID = [id number] for Negra Giordano POCT-GLUCOSE [id number] 19:19:00 Test Item Value Reference Range Interpretation Comments POC-GLUCOSE METER 276 mg/dL 70-110 H : TESTED A T [facility] 6720 (BEAKER) (test code = [facility], 1538) [address]: Clay Pigeon Setter/Techni sandip ID = [id number] for [place] CREATINE KINASE (CK)2020-02-22 19:03:00 Test Item Value Reference Range Interpretation Comments CREATINE KINASE TOTAL (BEAKER) (test 152 U/L 29-200 code = 380) Clay Pigeon Setter ID - DBPOCT-GLUCOSE [id number] 18:43:00 Test Item Value Reference Range Interpretation Comments POC-GLUCOSE METER 311 mg/dL 70-110 H : TESTED A T [facility] 6720 (BEAKER) (test code = [facility], 1538) [address]: Clay Pigeon Setter/Techni sandip ID = [id number] for FLAQUITA WALL LACTIC ACID, [id number] 18:30:00 Test Item Value Reference Range Interpretation Comments LACTATE BLOOD ARTERIAL (2) 4.7 mmol/L 0.5-2.2 HH (BEAKER) (test code = 2874) Clay Pigeon Setter ID - [id number] 18:28:00 Test Item Value Reference Range Interpretation Comments PHOSPHORUS (BEAKER) (test code = 4.4 mg/dL 2.3-4.7 604) Clay Pigeon Setter ID - [id number] 18:28:00 Test Item Value Reference Range Interpretation Comments MAGNESIUM (BEAKER) (test code = 1.9 mg/dL 1.6-2.6 627) Clay Pigeon Setter ID - DBBASIC METABOLIC [id number] 18:28:00 Test Item Value Reference Range Interpretation [...] 697) EGFR (BEAKER) (test 66 mL/min/1.73 ESTIMA [place]ENIX GFR IS code = 1092) sq m NOT ACCURATE CREATININE CLEARANCE IN PREDICTING GLOMERULAR FILTRATION RATE . ESTIMATED GFR I S NOT APPLICABLE FOR DIALYSIS PATIEN TS. Clay Pigeon Setter ID - DBGLUCOSE-STAT [id number] 18:07:00 Test Item Value Reference Range Interpretation Comments GLUCOSE RANDOM (BEAKER) (test code 292 mg/dL 70-110 H = 652) BASIC METABOLIC [id number] 15:15:00 Test Item Value Reference Range Interpretation [...] 697) EGFR (BEAKER) (test 65 mL/min/1.73 ESTIMA [place] GFR IS code = 1092) sq m NOT ACCURATE CREATININE CLEARANCE IN PREDICTING GLOMERULAR FILTRATION RATE . ESTIMATED GFR I S NOT APPLICABLE FOR DIALYSIS PATIEN TS. Clay Pigeon Setter ID - DBPROTHROMBIN [id number] 15:12:00 Test Item Value Reference Range Interpretation [...] is 2.5-3.5 for patients wiht mechanical heart valves.LACTIC ACID, [id number] 15:12:00 Test Item Value Reference Range Interpretation Comments LACTATE BLOOD 3.6 mmol/L 0.5-2.2 H Specimen sligh tly ARTERIAL (2) (BEAKER) hemoly zed (test code = 2874) Clay Pigeon Setter ID - [id number] 15:12:00 Test Item Value Reference Range Interpretation Comments PARTIAL THROMBOPLASTIN TIME 30.1 seconds 22.5-36.0 (BEAKER) (test code = 760) CBC W/PLT COUNT & AUTO [id number] 15:09:00 Test Item Value Reference Range Interpretation [...] PERCENT (BEAKER) (test code = 2801) PLATELET [id number] 15:01:00 Test Item Value Reference Range Interpretation Comments PLATELET COUNT (BEAKER) (test 154 K/CU MM 150-450 code = 756) [id number] 13:51:00 Test Item Value Reference Range Interpretation Comments ACTIVATED CLOTTING TIME 125 sec : 74 -137 seconds, (BEAKER) (test code = Homar ne: TESTED AT 441) [facility] [address] [place], [address]: Clay Pigeon Setter/Techni sandip ID = [id number] for CA STRO, SILVERIO GLUCOSE-STAT [id number] 13:24:00 Test Item Value Reference Range Interpretation Comments GLUCOSE RANDOM (BEAKER) (test code 185 mg/dL 70-110 H = 652) HGB/HCT (H&H) - STAT [id number] 13:24:00 Test Item Value Reference Range Interpretation Comments HEMOGLOBIN (BEAKER) (test code = 10.6 g/dL 13.0-16.8 L 410) HEMATOCRIT (BEAKER) (test code = 31.0 % 40.0-50.0 L 411) SODIUM NA-STAT [id number] 13:23:00 Test Item Value Reference Range Interpretation Comments SODIUM (BEAKER) (test code = 381) 136 meq/L 136-145 POTASSIUM-STAT [id number] 13:23:00 Test Item Value Reference Range Interpretation Comments POTASSIUM (BEAKER) (test code = 3.8 meq/L 3.6-5.5 379) BLOOD GAS, [id number] 13:23:00 Test Item Value Reference Range Interpretation [...] (BEAKER) (test code = 1819) 50.0 % [id number] 12:04:00 Test Item Value Reference Range Interpretation Comments ACTIVATED CLOTTING TIME 296 sec : 74 -137 seconds, (BEAKER) (test code = Homar ne: TESTED AT 441) [address], [facility] 30: Clay Pigeon Setter/Techni sandip ID = [id number] for ZURI YAP, CHAGO [id number] 11:48:00 Test Item Value Reference Range Interpretation Comments ACTIVATED CLOTTING TIME 257 sec : 74 -137 seconds, (BEAKER) (test code = Baseli ne: TESTED AT 441) [address], [facility] 30: Clay Pigeon Setter/Techni sandip ID = [id number] for ZURI YAP, CHAGO [id number] 11:21:00 Test Item Value Reference Range Interpretation Comments ACTIVATED CLOTTING TIME 307 sec : 74 -137 seconds, (BEAKER) (test code = Baseli ne: TESTED AT 441) [address], [facility] 30: Clay Pigeon Setter/Techni sandip ID = [id number] for RE DIC, BETY [id number] 10:34:00 Test Item Value Reference Range Interpretation Comments ACTIVATED CLOTTING TIME 296 sec : 74 -137 seconds, (BEAKER) (test code = Baseli ne: TESTED AT 441) [address], [facility] 30: Clay Pigeon Setter/Techni sandip ID = [id number] for RE DIC, BETY [id number] 09:58:00 Test Item Value Reference Range Interpretation Comments ACTIVATED CLOTTING TIME 290 sec : 74 -137 seconds, (BEAKER) (test code = Baseli ne: TESTED AT 441) [address], [facility] 30: Clay Pigeon Setter/Techni sandip ID = [id number] for RE DIC, BETY [id number] 09:36:00 Test Item Value Reference Range Interpretation Comments ACTIVATED CLOTTING TIME 257 sec : 74 -137 seconds, (BEAKER) (test code = Baseli ne: TESTED AT 441) [address], [facility] 30: Clay Pigeon Setter/Techni sandip ID = [id number] for RE DIC, BETY SARS-COV2/RT-PCR ([facility])2020-02-21 19:54:00 Test Item Value Reference Range Interpretation Comments SARS-COV2/RT-PCR (test Not Detected Not Detected, Negative code = 6438346) SARS-COV-2 PERFORMING LAB [facility] (test code = 0581904) Negative results do not preclude SARS-CoV-2 infection [...] of the Act.Fact Sheet for Healthcare Pro viders:https://www.[employer]/Documents/Xpert%20Xpress%20SARS%20CoV-2/Fact%20Sh eets/302-3802%42JMBA-DZN-7%20HEALTHCARE%20PROVIDERS%20FACT%20SHEET.pdfFact Sheet for Healthcare Patients:https://www.OnForce.MideoMe/Documents/Xpert%20Xpress%20SARS%20CoV-2/Fact%20Sheets/302-3801%20SARS-COV -2%20PATIENT%20FACT%20SHEET.pdfPerforming Laboratory:[facility], [place] [id number] 19:07:00 Test Item Value Reference Range Interpretation Comments MAGNESIUM (BEAKER) (test code = 2.4 mg/dL 1.6-2.6 627) Clay Pigeon Setter ID - DBBASIC METABOLIC [id number] 19:07:00 Test Item Value Reference Range Interpretation [...] 697) EGFR (BEAKER) (test 76 mL/min/1.73 ESTIMA PHOENIX GFR IS code = 1092) sq m NOT ACCURATE CREATININE CLEARANCE IN PREDICTING GLOMERULAR FILTRATION RATE . ESTIMATED GFR I S NOT APPLICABLE FOR DIALYSIS PATIEN TS. Clay Pigeon Setter ID - DBCBC W/PLT COUNT & AUTO [id number] 18:56:00 Test Item Value Reference Range Interpretation [...] 0-1 PERCENT (BEAKER) (test code = 2801) [id number] 18:54:00 Test Item Value Reference Range Interpretation [...] is 2.5-3.5 for patients wiht mechanical heart valves.POCT-GLUCOSE [id number] 08:09:00 Test Item Value Reference Range Interpretation Comments POC-GLUCOSE METER 221 mg/dL 70-110 H : Notified RN/MD: TESTED (BEAKER) (test code AT [facility] [address] = 1538) [facility], [address]: Clay Pigeon Setter/Techni sandip ID = [id number] for CECILE DANIEL TROPONIN [id number] 04:32:00 Test Item Value Reference Range Interpretation [...] failure, acidosis, acute neurological disease, and persistent tachyarrhythmia.Clay Pigeon Setter ID - PIAYA LBASIC METABOLIC [id number] 04:16:00 Test Item Value Reference Range Interpretation [...] 697) EGFR (BEAKER) (test 98 mL/min/1.73 ESTIMA [place]EN[place] GFR IS code = 1092) sq m NOT ACCURATE CREATININE CLEARANCE IN PREDICTING GLOMERULAR FILTRATION RATE . ESTIMATED GFR I S NOT APPLICABLE FOR DIALYSIS PATIEN TS. Clay Pigeon Setter ID - PIAYA LCBC (HEMOGRAM ONLY)2019-12-17 04:01:00 [...] 0-0 (BEAKER) (test code = 413) TROPONIN [id number] 22:30:00 Test Item Value Reference Range Interpretation [...] failure, acidosis, acute neurological disease, and persistent tachyarrhythmia.Clay Pigeon Setter ID - BSPOCT-GLUCOSE METER 2019-12-16 21:26:00 Test Item Value Reference Range Interpretation Comments POC-GLUCOSE METER 345 mg/dL 70-110 H : TESTED A T [facility] 6720 (BEAKER) (test code = [place], 1538) [address]: Clay Pigeon Setter/Techni sandip ID = [id number] for BA TTLES, ARYELL TROPONIN [id number] 16:44:00 Test Item Value Reference Range Interpretation [...] failure, acidosis, acute neurological disease, and persistent tachyarrhythmia.Clay Pigeon Setter ID - BSPLATELET AGGREGATION: FUNCTION [id number] 16:28:00 Test Item Value Reference Range Interpretation Comments [id number] Daily Pina ([facility]) (test code = (electronic 4477) signature) PLATELET COUNT AGG 198 K/CU MM 150-450 ([facility]) (test code = 2656) PLATELET RICH 285 k/cu mm 200-300 PLASMA([facility]) (test code = 2134) PLATELET FUNCTION SCREEN Decreased aggregation INTERPRETATION ([facility]) with ADP which (test code = 4655) indicates platelet dysfunction that may be due to medication effect, uremia, or other platelet function disorders. Clinical correlation is required. Platelet Function Screen results may be falsely low with platelet counts<75,000/cu mm.Clay Pigeon Setter ID- [id number] 16:22:00 Test Item Value Reference Range Interpretation Comments PARTIAL THROMBOPLASTIN TIME 36.5 seconds 22.5-36.0 H ([facility]) (test code = 760) 6 hours after starting heparin infusion and as indicated per sliding scalePOCT- GLUCOSE [id number] 12:29:00 Test Item Value Reference Range Interpretation Comments POC-GLUCOSE METER 278 mg/dL 70-110 H : TESTED A T [facility] 6720 ([facility]) (test code = BRENDA Dykes [facility], 1538) [address]: Clay Pigeon Setter/Techni sandip ID = [id number] for CIARAN MENENDEZ TROPONIN [id number] 11:03:00 Test Item Value Reference Range Interpretation Comments TROPONIN I ([facility]) (test code = 0.39 ng/mL 0.00-0.03 [facility]) Troponin I (TnI) levels must be interpreted [...] failure, acidosis, acute neurological disease, and persistent tachyarrhythmia.Clay Pigeon Setter ID - NEELAM [id number] 10:50:00 Test Item Value Reference Range Interpretation Comments PARTIAL THROMBOPLASTIN TIME 29.5 seconds 22.5-36.0 (BEAKER) (test code = 760) Prior to initiating heparinRAD, CHEST, 1 VIEW, NON [id number] 10:00:00Reason for exam:->Short of breathShould this be performed at the bedside?->Yes FINAL REPORT INDICATION: Short of breath COMPARISON: December 15, 2019 TECHNIQUE: Single frontal view of the chest. FINDINGS: Lungs and pleura: Mild interstitial edema. Trace right effusion. Heart and mediastinum: Normal heart size. Unremarkable mediastinal contours.Osseous structures: No acute abnormality.Other: None. . Signed: Myrna Lange Verified Date/Time: 12/16/201910:00:26 Reading Location: [facility] Radiology Reading Room GLOBIN [id number] 09:56:00 Test Item Value Reference Range Interpretation Comments HEMOGLOBIN A1C (BEAKER) (test code = 9.5 % 4.3-6.1 H 368) POCT-GLUCOSE [id number] 08:11:00 Test Item Value Reference Range Interpretation Comments POC-GLUCOSE METER 140 mg/dL 70-110 H : TESTED A T [facility] 6720 (BEAKER) (test code = BRENDA Dykes [facility], 1538) [id number]: Clay Pigeon Setter/Techni sandip ID = [id number] for CIARAN MENENDEZ LIPID [id number] 05:11:00 Test Item Value Reference Range Interpretation Comments TRIGLYCERIDES (BEAKER) (test code = 133 mg/dL 540) CHOLESTEROL (BEAKER) (test code = 101 mg/dL 631) HDL CHOLESTEROL (BEAKER) (test code 26 mg/dL = 976) LDL CHOLESTEROL CALCULATED (BEAKER) 48 mg/dL (test code = 633) Triglyceride Reference Range: Low Risk <150 Borderline 150-199 High Risk 200- 499 Very High Risk >=500Cholesterol Reference Range: Low Risk <200 Borderline 200-239 High Risk >240HDL Cholesterol Reference Range: Low Risk >=60 High Risk <40LDL Cholesterol Reference Range: Optimal <100 Near Optimal 100-129 Borderline 130-159 High 160-189 Very High >=190 Clay Pigeon Setter ID - JIMENEZ MBASIC METABOLIC [id number] 05:11:00 Test Item Value Reference Range Interpretation [...] 697) EGFR (BEAKER) (test 98 mL/min/1.73 ESTIMA [place] GFR IS code = 1092) sq m NOT ACCURATE CREATININE CLEARANCE IN PREDICTING GLOMERULAR FILTRATION RATE . ESTIMATED GFR I S NOT APPLICABLE FOR DIALYSIS PATIEN TS. Clay Pigeon Setter ID Jose MELISSAA MPOCT-GLUCOSE [id number] 21:46:00 Test Item Value Reference Range Interpretation Comments POC-GLUCOSE METER 177 mg/dL 70-110 H : TESTED A T [facility] 6720 (BEAKER) (test code = [place], 1538) [id number]: Clay Pigeon Setter/Techni sandip ID = [id number] for Merced Ambrosio COMPREHENSIVE METABOLIC [id number] 18:50:00 Test Item Value Reference Range Interpretation [...] 347) EGFR (BEAKER) (test 90 mL/min/1.73 ESTIM[facility] [place] GFR IS code = 1092) sq m NOT ACCURATE CREATININE CLEARANCE IN PREDICTING GLOMERULAR FILTRATION RATE . ESTIMATED GFR I S NOT APPLICABLE FOR DIALYSIS PATIEN TS. Clay Pigeon Setter ID - BSPROTHROMBIN [id number] 18:42:00 Test Item Value Reference Range Interpretation [...] is 2.5-3.5 for patients wiht mechanical heart valves.[id number] 18:42:00 Test Item Value Reference Range Interpretation Comments PARTIAL THROMBOPLASTIN TIME 29.8 seconds 22.5-36.0 (BEAKER) (test code = 760) RAD, CHEST, 1 VIEW, NON [id number] 18:34:00Reason for exam:->s/p NSTEMI, pre-op CXRShould this be performed at the bedside?->YesFINAL REPORT Chest, portable AP view History: Status post NSTEMI, preoperative c hest x-ray Comparison: No comparisons available for review IMPRESSION: The heart is within normal limits of size. Bibasilar atelectasis. There is mild interstitial edema. Small bilateral pleural effusions are suspected. No focal consolidation or pneumothorax. Signed: Nate [place] Verified D ate/Time: 12/15/2019 18:34:02 Reading Location: [address] Radiology Reading Room POCT- GLUCOSE [id number] 16:09:00 Test Item Value Reference Range Interpretation Comments POC-GLUCOSE METER 185 mg/dL 70-110 H : TESTED A T [facility] 6720 ([facility]) (test code = [place], 1538) [id number]: Clay Pigeon Setter/Techni sandip ID = [id number] for GREG SUNG
[2022-05-04 22:11] LABS: Hematocrit 37.4 % (39.6-49.0); Lymphocytes % 42.1 % (15.3-44.8); MCV 96.5 fL (80-100); MPV 7.4 fL (7.6-11.3); RBC Red Blood Cell Count 3.87 M/uL (4.33-5.43)
[2022-05-04 22:30] LABS: Potassium 3.6 mmol/L (3.5-5.1); Troponin High Sensitivity 8.9 pg/mL (<58.9)
[2022-05-05] MEDS ORDERED: LIDOCAINE 1% W/EPI 1:100,000 MDV 50 ML VIAL ONE (00:11)
[2022-05-05] MEDS ORDERED: TETANUS & DIPHTHERIA TOX,ADULT 0.5 ML VIAL ONE (00:11)
--- NOTE | 2022-05-05 00:29 | EDPHYS ---
Physician Documentation [facility] Name: Dontrell Cartwright Jr Age: 76 yrs Sex: Male : 1945 Arrival Date: 05/04/2022 Time: 21:18 Bed 5 Private MD: ED Physician Dennis Leonard HPI: 05/05 00:59 This 76 yrs old Male presents to ER via EMS with complaints of Fall Injury. ms3 00:59 Details of fall: The patient fell from an upright position, while standing, and struck ms3 a concrete surface. Onset: The symptoms/episode began/occurred just prior to arrival. Associated injuries: The patient sustained injury to the head, abrasion, swelling. Severity of symptoms: At their worst the symptoms were mild, in the emergency department the symptoms are unchanged. Historical: - Allergies: 05/04 21:36 No Known Allergies; bb - Home Meds: 21:36 Eliquis 5 mg Oral tab 1 tab 2 times per day [Active]; gabapentin 100 mg Oral cap bb [Active]; Jardiance 25 mg Oral tab 1 tab once daily [Active]; lansoprazole 30 mg Oral cpDR 1 cap nightly [Active]; Lantus 100 unit/mL Sub-Q soln 100 unit daily [Active]; metformin 500 mg Oral Tb24 1 tab once daily [Active]; metoprolol succinate 100 mg Oral CSpX 1 cap twice a day [Active]; nitroglycerin 0.4 mg SL subl 1 tab every 5 minutes for Angina [Active]; Orencia (with maltose) 250 mg intravenous solr every 4 wks [Active]; ranolazine 500 mg Oral Tb12 1 tab daily [Active]; rosuvastatin 10 mg Oral tab 1 tab once daily [Active]; spironolactone 25 mg Oral tab 1 tab once daily [Active]; tamsulosin 0.4 mg Oral cp24 1 cap once daily [Active]; Tirosint 50 mcg Oral cap [Active]; Victoza 3-Abundio 0.6 mg/0.1 mL (18 mg/3 mL) subcutaneous pnij 1.8 mL once daily [Active]; Vitamin D Oral 2000 mg daily [Active]; - PMHx: 21:36 Angina; Atrial Fib; Atrial fibrillation; Diabetes - IDDM; GERD; Hypertension; bb Rheumatoid Arthritis; - Immunization history:: Pfizer x 3, Moderna x 1. - Social history:: Smoking status: unknown. - Immunization history: Last tetanus immunization: unknown. ROS: 05/05 00:59 Constitutional: Negative for fever, and chills. ENT: Negative for injury, pain, and ms3 discharge, Neck: Negative for injury, pain, and swelling, Cardiovascular: Negative for chest pain, and palpitations. Respiratory: Negative for shortness of breath, cough, wheezing, and pleuritic chest pain, Abdomen/GI: Negative for abdominal pain, nausea, vomiting, diarrhea, and constipation, Skin: Negative for injury, rash, and discoloration. 06:01 All other systems are negative. ms3 Exam: 05/04 22:11 ECG was reviewed by the Attending Physician. ms3 05/05 06:01 Constitutional: This is a well developed, well nourished patient who is awake, alert, ms3 and in no acute distress. Head/Face: Normocephalic, atraumatic. Chest/axilla: Normal chest wall appearance and motion. Nontender with no deformity. Cardiovascular: Regular rate and rhythm with a normal S1 and S2. No gallops, murmurs, or rubs. Normal PMI, no JVD. No pulse deficits. Respiratory: Lungs have equal breath sounds bilaterally, clear to auscultation and percussion. No rales, rhonchi or wheezes noted. No increased work of breathing, no retractions or nasal flaring. Abdomen/GI: Soft, non-tender, with normal bowel sounds. No distension or tympany. No guarding or rebound. No evidence of tenderness throughout. MS/ Extremity: Pulses equal, no cyanosis. Neurovascular intact. Full, normal range of motion. Skin: injury, Laceration nasal bridge, abrasion nose, abrasion forehead. Vital Signs: 05/04 21:32 BP 103 / 69; Pulse 73; Resp 12 S; Temp 97.9(O); Pulse Ox 96% on R/A; Weight 81.19 kg bb (R); Height 5 ft. 9 in. (175.26 cm) (R); Pain 0/10; 05/05 00:04 Pulse 74; Resp 18; Pulse Ox 92% on R/A; tw5 00:13 BP 96 / 65; Pulse 72; Resp 18; Pulse Ox 99% on R/A; tw5 01:00 BP 119 / 84; Pulse 69; Resp 16; Pulse Ox 95% on R/A; jb4 02:00 BP 116 / 60; Pulse 69; Resp 16; Pulse Ox 96% on R/A; jb4 03:00 BP 112 / 58; Pulse 75; Resp 17; Pulse Ox 97% on R/A; jb4 04:00 BP 120 / 60; Pulse 78; Resp 15; Pulse Ox 98% on R/A; jb4 05:16 BP 141 / 69; Pulse 76; Resp 18; Pulse Ox 98% on R/A; tw5 05/04 21:32 Body Mass Index 26.43 (81.19 kg, 175.26 cm) bb Marie Coma Score: 05/04 21:32 Eye Response: spontaneous(4). Verbal Response: oriented(5). Motor Response: obeys bb commands(6). Total: 15. Trauma Score (Adult): 21:32 Eye Response: spontaneous(1); Verbal Response: oriented(1); Motor Response: obeys bb commands(2); Systolic BP: > 89 mm Hg(4); Respiratory Rate: 10 to 29 per min(4); Marie Score: 15; Trauma Score: 12 MDM: 21:59 Patient medically screened. ms3 05/05 06:01 Differential diagnosis: abrasion, fracture, laceration. Data reviewed: vital signs, ms3 nurses notes, lab test result(s), radiologic studies, and as a result, I will admit patient. Counseling: I had a detailed discussion with the patient and/or guardian regarding: the historical points, exam findings, and any diagnostic results supporting the discharge/admit diagnosis, lab results, radiology results, the need for further work-up and treatment in the hospital. ED course: Patient remains with unstable gait and is not steady on his feet. Discussed case with BRIANNA Zepeda, and she accepts on behalf of Dr Grissom. 05/04 22:04 Order name: Basic Metabolic Panel; Complete Time: 23:56 EDMS 05/04 22:04 Order name: Troponin High Sensitivity; Complete Time: 23:56 EDMS 05/04 21:47 Order name: CT Head C Spine ms3 05/04 22:04 Order name: Alcohol Serum/Plasma; Complete Time: 23:56 EDMS 05/04 22:04 Order name: CBC with Automated Diff; Complete Time: 23:56 EDMS 05/05 05:58 Order name: SARS RAPID wm 05/05 06:32 Order name: SARS-COV-2 Antigen Rapid; Complete Time: 09:22 EDMS 05/05 08:29 Order name: Glucose, Ancillary Testing; Complete Time: 09:22 EDMS 05/05 09:32 Order name: Alcohol Serum/Plasma EDMS 05/05 10:39 Order name: Ammonia EDMS 05/04 21:47 Order name: Labs collected and sent; Complete Time: 21:54 ms3 05/04 21:47 Order name: EKG; Complete Time: 23:48 ms3 05/04 22:16 Order name: Head C Spine Mpr Wo Con EDMS 05/04 22:19 Order name: Chest Single View EDMS 05/04 22:30 Order name: Facial Bones W/ Mpr EDMS EC/26 22:11 Rate is 74 beats/min. Rhythm is regular. QRS [place] is Normal. Clinical impression: NSR ms3 w/ Non-specific ST/T Changes. Interpreted by me. Reviewed by me. Administered Medications: 05/05 00:12 Drug: Tetanus Toxoid,Adsorbed 0.5 ml {Pay Station Attendant: [employer]. Exp: 01/13/2024. Lot tw5 #: [id number]. } Route: IM; Site: left deltoid; 00:13 Follow up: Response: (VIS) Vaccine information sheet provided today. Questions and/or tw5 concerns addressed. VIS edition date: Apr 14, 2021.; No adverse reaction 00:46 Not Given (Physician Discretion): Lidocaine-Epinephrine -1%: (1:100,000) 10 ml 20 ml tw5 Infiltration once; to bedside 01:43 Drug: Multivitamin 1 amp Route: IV; Rate: calculated rate; Site: right antecubital; tw5 01:43 Drug: NS 0.9% 1000 ml Route: IV; Rate: 1000 ml; Site: right antecubital; tw5 Disposition Summary: 05/05/22 05:02 Hospitalization Ordered Hospitalization Status: Observation ms3 Provider: Atilio Alves ms3 Condition: Stable(05/05/22 05:02) ms3 Problem: new ms3 Symptoms: are unchanged ms3 Bed/Room Type: Standard ms3 Location: Telemetry/MedSurg (observation)(05/05/22 10:55) dw Room Assignment: 204(05/05/22 10:55) dw Diagnosis - Fracture of nasal bones(05/05/22 05:02) ms3 - Abrasion of nose(05/05/22 05:02) ms3 - Fall on same level, unspecified(05/05/22 05:02) ms3 - Alcohol abuse with intoxication ms3 - Ataxia, unspecified ms3 - Muscle weakness (generalized) ms3 Forms: - Medication Reconciliation Form ms3 - SBAR form ms3 Signatures: Dispatcher [employer] EDMS Erika Maloney RN Candida Elmore RN RN Amina Bowden RN RN bb Bryson, James, RN RN jb4 Dennis Leonard DO DO ms3 Arnold Brooklynn tw5 Corrections: (The following items were deleted from the chart) 05/04 21:39 21:36 PSHx: cardiac stents; sp snowden 22:30 22:16 CT-MAXILLOFACIAL W/O CONTRAST ordered. EDDC EDDC 05/05 00:09 05/04 23:48 BASIC METABOLIC PANEL+C.LAB.BRZ ordered. EDDC EDDC 05/05 00:09 05/04 23:48 CBC+H.LAB.BRZ ordered. EDDC EDDC 05/05 00:09 05/04 23:48 Troponin High Sensitivity+C.LAB.BRZ ordered. EDDC EDDC 05/05 00:09 05/04 23:48 ETHANOL+C.LAB.BRZ ordered. EDDC EDDC 05/05 00:11 05/04 23:48 Chest Single View+RAD.RAD.BRZ ordered. EDDC EDDC 05/05 00:17 05/04 23:54 Head C Spine Mpr Wo Con ordered. EDDC EDDC 05/05 00:46 00:01 Dressing - Wound ordered. tw5 tw5 00:46 00:01 Sterile Gloves ordered. tw5 tw5 00:46 00:01 Setup Suture Tray ordered. tw5 tw5 04:59 00:28 Home ms3 ms3 04:59 00:28 Stable ms3 ms3 04:59 00:28 Fracture of nasal bones ms3 ms3 04:59 00:28 Abrasion of nose ms3 ms3 04:59 00:28 Fall on same level, unspecified ms3 ms3 04:59 00:28 Alcohol use, unspecified with intoxication ms3 ms3 05:43 05:02 Telemetry/MedSurg (observation) ms3 mw 05:43 05:02 ms3 mw 06:01 00:59 Constitutional: Negative for fever, and chills. ENT: Negative for injury, pain, ms3 and discharge, Neck: Negative for injury, pain, and swelling, Cardiovascular: Negative for chest pain, and palpitations. Respiratory: Negative for shortness of breath, cough, wheezing, and pleuritic chest pain, Abdomen/GI: Negative for abdominal pain, nausea, vomiting, diarrhea, and constipation, ms3 10:55 05:43 [facility] ER HOLD mw dw 10:55 05:43 ERHOLD- mw dw
--- NOTE | 2022-05-05 00:29 | ER ---
Nurse's Notes [facility] Name: Dontrell Cartwright Jr Age: 76 yrs Sex: Male : 1945 Arrival Date: 05/04/2022 Time: 21:18 Bed 5 Private MD: Diagnosis: Fracture of nasal bones;Abrasion of nose;Fall on same level, unspecified;Alcohol abuse with intoxication;Ataxia, unspecified;Muscle weakness (generalized) Presentation: 05/04 21:32 Chief complaint: EMS states: they were toned out for report of pt having fallen bb possibly due to a syncopal episode pt does not remember what happened. Care prior to arrival: IV initiated. 20 GA, in the left forearm. Mechanism of Injury: Fall from standing position. Trauma event details: Injury occurred in the [facility], Injury occurred: at home. Injury occurred: May 04, 2022. 21:32 Acuity: NEREIDA 3 bb 21:32 Method Of Arrival: EMS: [facility] bb 21:36 Coronavirus screen: At this time, the client does not indicate any symptoms associated bb with coronavirus-19. Ebola Screen: No symptoms or risks identified at this time. Initial Sepsis Screen: Does the patient meet any 2 criteria? No. Patient's initial sepsis screen is negative. Does the patient have a suspected source of infection? No. Patient's initial sepsis screen is negative. Risk Assessment: Do you want to hurt yourself or someone else? Patient reports no desire to harm self or others. Onset of symptoms was May 04, 2022. Historical: - Allergies: 21:36 No Known Allergies; bb - Home Meds: 21:36 Eliquis 5 mg Oral tab 1 tab 2 times per day [Active]; gabapentin 100 mg Oral cap bb [Active]; Jardiance 25 mg Oral tab 1 tab once daily [Active]; lansoprazole 30 mg Oral cpDR 1 cap nightly [Active]; Lantus 100 unit/mL Sub-Q soln 100 unit daily [Active]; metformin 500 mg Oral Tb24 1 tab once daily [Active]; metoprolol succinate 100 mg Oral CSpX 1 cap twice a day [Active]; nitroglycerin 0.4 mg SL subl 1 tab every 5 minutes for Angina [Active]; Orencia (with maltose) 250 mg intravenous solr every 4 wks [Active]; ranolazine 500 mg Oral Tb12 1 tab daily [Active]; rosuvastatin 10 mg Oral tab 1 tab once daily [Active]; spironolactone 25 mg Oral tab 1 tab once daily [Active]; tamsulosin 0.4 mg Oral cp24 1 cap once daily [Active]; Tirosint 50 mcg Oral cap [Active]; Victoza 3-Abundio 0.6 mg/0.1 mL (18 mg/3 mL) subcutaneous pnij 1.8 mL once daily [Active]; Vitamin D Oral 2000 mg daily [Active]; - PMHx: 21:36 Angina; Atrial Fib; Atrial fibrillation; Diabetes - IDDM; GERD; Hypertension; bb Rheumatoid Arthritis; - Immunization history:: Pfizer x 3, Moderna x 1. - Social history:: Smoking status: unknown. - Immunization history: Last tetanus immunization: unknown. Screenin:32 Abuse screen: Denies threats or abuse. Tuberculosis screening: No symptoms or risk bb factors identified. 05/05 00:04 Nutritional screening: No deficits noted. Fall Risk None identified. tw5 Primary Survey: 05/04 21:35 NO uncontrolled hemorrhage observed. A: The client is awake and alert. The airway is jb4 patent. Breathing/Chest: Spontaneous respiratory effort, equal unlabored respirations, breath sounds clear bilaterally, regular pattern, symmetrical chest rise and fall. Circulation: No external hemorrhage present. Regular and strong central pulse, skin warm/dry/normal color. Disability Pupils are equal, round, reactive to light and accommodation. Client is alert. Exposure/Environment: All clothing and personal items were removed. Forensic evidence collection is not deemed to be indicated at this time. Items placed in patient belonging bag. 22:30 Reassessment Alertness and Airway: Awake and alert. The airway is patent. Breathing: jb4 Spontaneous respiratory effort, equal unlabored respirations, breath sounds clear bilaterally, regular pattern with symmetrical chest rise and fall. Circulation: No external hemorrhage noted. Regular and strong central pulse, skin warm/dry/normal color. Disability: Pupils Pupils are equal, round, reactive to light and accomodation. Alert. Secondary Survey: 21:35 HEENT: No deficits noted. Gastrointestinal: No deficits noted. : No signs and/or jb4 symptoms were reported regarding the genitourinary system. Musculoskeletal: No signs and/or symptoms reported regarding the musculoskeletal system. Circulation, motion, and sensation intact. Range of motion: intact in all extremities. Assessment: 21:35 General: Appears in no apparent distress. uncomfortable, Behavior is calm, cooperative, jb4 appropriate for age, Report current pain is normal, no new pain reported.. Pain: Complains of pain in right arm, left arm, right leg and left leg Pain does not radiate. Neuro: Level of Consciousness is awake, alert, obeys commands, Oriented to person, place, time, situation, Drama Critic are equal bilaterally Moves all extremities. Speech is normal, Facial symmetry appears normal, Pupils are PERRLA. EENT: No signs and/or symptoms were reported regarding the EENT system. Cardiovascular: Patient's skin is warm and dry. Respiratory: Airway is patent Trachea midline Respiratory effort is even, unlabored, Respiratory pattern is regular, symmetrical, Breath sounds are clear bilaterally. GI: No signs and/or symptoms were reported involving the gastrointestinal system. Bowel sounds present X 4 quads. Patient currently denies abdominal pain. : No signs and/or symptoms were reported regarding the genitourinary system. Derm: Skin abrasions noted to right sprague. Musculoskeletal: Circulation, motion, and sensation intact. Range of motion: intact in all extremities. Injury Description: Abrasion sustained to right sprague is scabbed, Laceration sustained to bridge of nose is clean, superficial, 0.5 to 2.5 cm long, not bleeding, a small amount of bleeding noted at this time. hematoma noted to the forehead. 22:30 Reassessment: Patient appears in no apparent distress at this time. Patient and/or jb4 family updated on plan of care and expected duration. Pain level reassessed. Patient is alert, oriented x 3, equal unlabored respirations, skin warm/dry/pink. 23:30 Reassessment: Patient appears in no apparent distress at this time. No changes from jb4 previously documented assessment. Patient and/or family updated on plan of care and expected duration. Pain level reassessed. 05/05 00:06 General: Christina [phone]. tw5 00:30 Reassessment: Pt resting in bed with eyes closed, respirations even and unlabored with jb4 no s/s of pain or distress noted. 01:18 General: Attempted to discharge patient. Patient unable to stand with two person tw5 assist. Patient intoxicated. Provider notified.. 02:00 Reassessment: Patient appears in no apparent distress at this time. Patient and/or jb4 family updated on plan of care and expected duration. Pain level reassessed. Patient is alert, oriented x 3, equal unlabored respirations, skin warm/dry/pink. 03:00 Reassessment: Pt resting in bed with eyes closed, respirations are even and unlabored. jb4 04:00 Reassessment: Patient appears in no apparent distress at this time. No changes from jb4 previously documented assessment. Patient and/or family updated on plan of care and expected duration. Pain level reassessed. 05:00 Reassessment: Patient appears in no apparent distress at this time. Patient and/or jb4 family updated on plan of care and expected duration. Pain level reassessed. Patient is alert, oriented x 3, equal unlabored respirations, skin warm/dry/pink. 05:16 General: Reports "i feel terrible, because I cannot move.". tw5 Vital Signs: 05/04 21:32 BP 103 / 69; Pulse 73; Resp 12 S; Temp 97.9(O); Pulse Ox 96% on R/A; Weight 81.19 kg bb (R); Height 5 ft. 9 in. (175.26 cm) (R); Pain 0/10; 05/05 00:04 Pulse 74; Resp 18; Pulse Ox 92% on R/A; tw5 00:13 BP 96 / 65; Pulse 72; Resp 18; Pulse Ox 99% on R/A; tw5 01:00 BP 119 / 84; Pulse 69; Resp 16; Pulse Ox 95% on R/A; jb4 02:00 BP 116 / 60; Pulse 69; Resp 16; Pulse Ox 96% on R/A; jb4 03:00 BP 112 / 58; Pulse 75; Resp 17; Pulse Ox 97% on R/A; jb4 04:00 BP 120 / 60; Pulse 78; Resp 15; Pulse Ox 98% on R/A; jb4 05:16 BP 141 / 69; Pulse 76; Resp 18; Pulse Ox 98% on R/A; tw5 05/04 21:32 Body Mass Index 26.43 (81.19 kg, 175.26 cm) bb Marie Coma Score: 05/04 21:32 Eye Response: spontaneous(4). Verbal Response: oriented(5). Motor Response: obeys bb commands(6). Total: 15. Trauma Score (Adult): 21:32 Eye Response: spontaneous(1); Verbal Response: oriented(1); Motor Response: obeys bb commands(2); Systolic BP: > 89 mm Hg(4); Respiratory Rate: 10 to 29 per min(4); [place] Score: 15; Trauma Score: 12 ED Course: 21:18 Patient arrived in ED. jj6 21:21 Martir Sanchez, WISAM is Primary Nurse. jb4 21:24 Dennis Leonard DO is Attending Physician. ms3 21:32 Patient has correct armband on for positive identification. Bed in low position. Call bb light in reach. Side rails up X2. 21:32 Patient maintains SpO2 saturation greater than 95% on room air. bb 21:32 Thermoregulation: warm blanket given to patient. jb4 21:34 Triage completed. bb 21:36 Arm band placed on Patient placed in an exam room, on a stretcher. bb 22:39 Head C Spine Mpr Wo Con In Process Unspecified. EDMS 22:39 Facial Bones W/ Mpr In Process Unspecified. EDMS 22:53 Chest Single View In Process Unspecified. EDMS 05/05 00:04 Pulse ox on. NIBP on. Door closed. Moved to private room. Warm blanket given. Verbal tw5 reassurance given. 00:04 Maintain EMS IV. Dressing intact. Good blood return noted. Site clean \\T\\ dry. Gauge \\T\\ tw 5 site: 20 Left Forearm. 00:26 Sadie Tamez MD is Referral Physician. ms3 01:20 No provider procedures requiring assistance completed. IV discontinued, intact, tw5 bleeding controlled, No redness/swelling at site. Pressure dressing applied. 01:20 Wound care: to abrasion, located on nose was dressed with Neosporin. tw5 05:02 Atilio Alves MD is Hospitalizing Provider. ms3 08:13 SARS RAPID Sent. ll1 Administered Medications: 00:12 Drug: Tetanus Toxoid,Adsorbed 0.5 ml {Clin Tech: [employer]. Exp: 01/13/2024. Lot tw5 #: [id number]. } Route: IM; Site: left deltoid; 00:13 Follow up: Response: (VIS) Vaccine information sheet provided today. Questions and/or tw5 concerns addressed. VIS edition date: Apr 14, 2021.; No adverse reaction 00:46 Not Given (Physician Discretion): Lidocaine-Epinephrine -1%: (1:100,000) 10 ml 20 ml tw5 Infiltration once; to bedside 01:43 Drug: Multivitamin 1 amp Route: IV; Rate: calculated rate; Site: right antecubital; tw5 01:43 Drug: NS 0.9% 1000 ml Route: IV; Rate: 1000 ml; Site: right antecubital; tw5 Medication: 00:04 Vaccine Information Statement (VIS) provided today. Questions and/or concerns tw5 addressed. VIS edition date: May 05, 2022. Intake: 05/04 21:32 PO: 0ml; Total: 0ml. bb Outcome: 05/05 00:28 Discharge ordered by MD. ms3 05:02 Decision to Hospitalize by Provider. ms3 06:17 Admitted to ER Hold. Please see [facility] for further documentation. jb4 06:17 Condition: stable 06:17 Discharge instructions given to patient, Instructed on the need for admit, Demonstrated understanding of instructions. 06:17 Patient's length of stay in the Emergency Department was greater than 2 hours. Pt jb4 admittedPatient's length of stay extended due to 12:17 Patient left the ED. ph Signatures: Dispatcher [employer] EDMS Amina Zaragoza RN RN bb Henny Sierra RN RN Martir Sanchez RN RN jb4 Radha Cavanaugh RN RN [facility] Dennis Leonard DO DO ms3 Brooklynn Barrett tw5 Arti Blackwood jj6 Corrections: (The following items were deleted from the chart) 05/04 21:39 21:36 PSHx: cardiac stents; bb bb 05/05 01:20 01:18 General: Attempted to discharge patient. Patient unable to stand with two person tw5 assist. Patient appears to be intoxicated. Provider notified.. tw5
[2022-05-05] MEDS ORDERED: MULTIVITAMINS 10 ML VIAL (INJ) IV ONE (01:42)
[2022-05-05] MEDS ORDERED: NA CHLORIDE 0.9% 1,000 ML ONE (01:42)
--- NOTE | 2022-05-05 05:13 | P.HP ---
Certification for Inpatient Patient admitted to: Observation With expected LOS: <2 Midnights Patient will require the following post-hospital care: None Practitioner: I am a practitioner with admitting privileges, knowledge of patient current condition, hospital course, and medical plan of care. Services: Services provided to patient in accordance with Admission requirements found in Title 42 Section 412.3 of the Code of Federal Regulations Patient History Date of Service: 05/05/22 Reason for admission: Weakness, Ataxia History of Present Illness: Patient is a 76 year-old male with history of afib on eliquis, insulin-dependent type 2 diabetes mellitus, CAD, and hypertension who presented to the ED after a fall. Patient reports that he was walking his dog and took a fall but does not remember how it happened. Multiple abrasions noted to the face upon arrival to ED. Head CT negative for acute processes. Vital signs stable. Etoh 297. He was set to be discharged but when nursing staff tried to stand him up, he got extremely weak and unsteady on his feet. ED was going to keep him a bit longer to monitor him. After reevaluation, he started saying he had pain all over and still felt extremely weak, too weak to open a water bottle. He states this has not happened before. He reports that he is chronic alcohol drinker and did not drink nearly as much as he normally does last night. He is admitted for observation. Allergies No Known Allergies Allergy (Verified 06/18/14 13:42) Home medications list reviewed: Yes Home Medications: Liraglutide [Victoza 2-Abundio] 1.8 mg SQ DAILY 06/18/14 Rosuvastatin Calcium [Crestor] 10 mg PO DAILY 06/18/14 Empagliflozin [Jardiance] 25 mg PO DAILY 12/12/[address] 30 mg PO DAILY 12/12/19 Metoprolol Tartrate 50 mg PO BID 12/12/19 Nitroglycerin 0.4 mg SL PRN PRN 12/12/19 Abatacept/Maltose [Orencia 250 mg Vial] 1 dose IV SEECOM 05/20/20 Ranolazine [Ranolazine ER] 500 mg PO DAILY 05/20/20 Tamsulosin [Flomax*] 0.4 mg PO BEDTIME #30 cap 05/22/20 Apixaban [Eliquis *] 5 mg PO DAILY 11/06/21 Aspirin [Aspirin EC 81 MG] 81 mg PO DAILY 11/06/21 Cholecalciferol (Vitamin D3) [Vitamin D 1000 Iu Tab*] 1,000 unit PO DAILY 11/06/21 Levothyroxine Sodium [Tirosint] 50 mcg PO DAILY 11/06/21 Vitamin B Complex [Vitamin B Complex*] 1 cap PO DAILY 11/06/21 methocarbamoL [Methocarbamol] 750 mg PO DAILY 11/06/21 Dimethicone [Cavilon Durable Barrier] 92 gm TP M,W,F 30 Days #1 cream..g. 11/11/21 Insulin Glargine,Hum.rec.anlog [Lantus] 20 units SQ DAILY #30 ml 11/11/21 - Past Medical/Surgical History Diabetic: Yes -: Hypertension -: CAD -: IDDM -: GERD -: Angiogram -: Right Knee surgery -: Bilateral feet surgery -: Cardiac stents 02/22/20 Psychosocial/ Personal History: Patient is . - Family History Father -: Heart disease Notes: father of heart attack Mother -: Heart disease Notes: mother of heart attack - Social History Smoking Status: Former smoker Alcohol use: Yes CD- Drugs: No Caffeine use: Yes Place of Residence: Home Review of Systems Neurological: Weakness, Incoordination Physical Examination - Physical Exam General: Alert, In no apparent distress HEENT: PERRLA, Other (abrasions on nose and upper lip), EOMI, Sclerae nonicteric Neck: Supple, 2+ carotid pulse no bruit, No LAD, Without JVD or thyroid abnormality Respiratory: Clear to auscultation bilaterally, Normal air movement Cardiovascular: Regular rate/rhythm, Normal S1 S2 Gastrointestinal: Normal bowel sounds, No tenderness Musculoskeletal: No tenderness Integumentary: No rashes Neurological: Normal speech, Normal tone, Normal affect, Abnormal gait, Abnormal strength - Studies Laboratory Data (last 24 hrs) 05/04/22 21:52: WBC 7.20, Hgb 12.4 L, Hct 37.4 L, Plt Count 215 05/04/22 21:52: Sodium 143, Potassium 3.6, BUN 6 L, Creatinine 0.72, Glucose 203 H 05/04/22 21:47: WBC Cancelled, Hgb Cancelled, Hct Cancelled, Plt Count Cancelled 05/04/22 21:47: Sodium Cancelled, Potassium Cancelled, BUN Cancelled, Creatinine Cancelled, Glucose Cancelled Assessment and Plan - Problems (Diagnosis) (1) Alcohol intoxication Current Visit: Yes Status: Acute Qualifiers: Complication of substance-induced condition: with unspecified complication Qualified Code(s): F10.929 - Alcohol use, unspecified with intoxication, unspecified (2) Generalized weakness Current Visit: Yes Status: Acute (3) Ataxia Current Visit: Yes Status: Acute (4) Type 2 diabetes mellitus Current Visit: Yes Status: Chronic Qualifiers: Diabetes mellitus watermelon inspector insulin use: with snf use Diabetes mellitus complication status: with hyperglycemia Qualified Code(s): E11.65 - Type 2 diabetes mellitus with hyperglycemia; Z79.4 - watermelon inspector (current) use of insulin (5) CAD (coronary artery disease) Current Visit: Yes Status: Chronic Qualifiers: Coronary Disease-Associated Artery/Lesion type: [place] artery [place] vs. transplanted heart: [place] heart Associated angina: without angina Qualified Code(s): I25.10 - Atherosclerotic heart disease of [place] coronary artery without angina pectoris (6) Fall Current Visit: Yes Status: Acute Qualifiers: Encounter type: initial encounter Qualified Code(s): W19.XXXA - Unspecified fall, initial encounter (7) Afib Current Visit: Yes Status: Acute Qualifiers: Atrial fibrillation type: paroxysmal Qualified Code(s): I48.0 - Paroxysmal atrial fibrillation - Plan -Continue IV fluids -Supplemental thiamine and folic acid -Physical therapy consult -Repeat alcohol level. ammonia, UDS pending -ACHS accu checks with mild sliding scale insulin and diabetic diet -CT head negative. Continue to monitor neuro status. -Monitor and replete electrolytes per protocol -Reconcile and continue home medications -Eliquis for VTE ppx -Full code Discharge Plan: Home Plan to discharge in: 24 Hours - Advance Directives Does patient have a Living Will: Yes Does patient have a Durable POA for Healthcare: Yes - Code Status/Comfort Care Code Status Assessed: Yes (Full) Critical Care: No Time Spent Managing Pts Care (In Minutes): 50
[2022-05-05 06:32] LABS: SARS-CoV-2 Antigen Rapid Res Negative (Negative)
[2022-05-05] MEDS ORDERED: ONDANSETRON 4 MG/2 ML VIAL IV PRN (08:06)
[2022-05-05] MEDS: NA CHLORIDE 0.9% 1,000 ML IV SCH ×3 (08:06→22:35)
[2022-05-05] MEDS ORDERED: ACETAMINOPHEN 500 MG TAB PO PRN (08:06)
[2022-05-05] MEDS: INSULIN -REGULAR HUMAN 50 UNIT/0.5 ML ML SQ SCH ×4 (08:06→21:15)
[2022-05-05] MEDS: THIAMINE 200 MG/2 ML INJ IVP SCH (09:00)
[2022-05-05] MEDS: APIXABAN 5 MG TABLET PO SCH ×2 (09:00→21:14)
[2022-05-05] MEDS: FOLIC ACID 5 MG/ML VIAL IVP SCH (09:00)
[2022-05-05] MEDS ORDERED: APIXABAN 5 MG TABLET ONE (11:18)
[2022-05-05] MEDS ORDERED: INSULIN -REGULAR HUMAN 50 UNIT/0.5 ML ML ONE (11:19)
[2022-05-05] MEDS ORDERED: FOLIC ACID 5 MG/ML VIAL ONE (11:20)
[2022-05-05 11:54] VITALS: BMI 26.4
[2022-05-05] MEDS: Oxycodone HCl/Acetaminophen 1 TAB TAB PO PRN ×2 (14:04→21:17)
--- NOTE | 2022-05-05 15:19 | EKG ---
Test Date: 2022-05-04 Test Time: 22:11:19 Psychiatric Aide: MARE MEASUREMENT RESULTS: Intervals: Rate: 74 MT: 196 QRSD: 84 QT: 412 QTc: 457 [place]: P: 61 MT: 196 QRS: 26 T: 90 INTERPRETIVE STATEMENTS: Normal sinus rhythm Low voltage QRS Nonspecific T wave abnormality Abnormal ECG Compared to ECG 03/08/2022 06:36:26 Low QRS voltage now present T-wave abnormality now present Sinus arrhythmia no longer present Electronically Signed On 05-05-22 15:18:12 CDT by Raoul Whitley
[2022-05-05] MEDS ORDERED: AMLODIPINE 5 MG TAB PO ONE (16:39)
[2022-05-05] MEDS: METOPROLOL TAR 50 MG TAB PO SCH ×2 (16:51→21:14)
--- NOTE | 2022-05-05 17:00 | RAD REPORT ---
EXAM DESCRIPTION: RAD - Chest Single View - 05/04/2022 10:51 pm CLINICAL HISTORY: Fall injury TECHNIQUE: Frontal view of the chest. COMPARISON: No relevant prior studies available. FINDINGS: Lungs: Unremarkable. No consolidation. Pleural space: Unremarkable. No pneumothorax. Heart: Unremarkable. No cardiomegaly. Mediastinum: Unremarkable. Bones/joints: Mild multilevel spondylosis. No acute fracture. Vasculature: Thoracic aortic atherosclerosis. IMPRESSION: No acute injury. Electronically signed by: Gloria Whitten MD 05/05/2022 12:40 AM CDT Due to temporary technical issues with the PACS/Fluency reporting system, reports are being signed by the in house radiologists without review as a courtesy to insure prompt reporting. The interpreting radiologist is fully responsible for the content of the report.
--- NOTE | 2022-05-05 17:11 | RAD REPORT ---
EXAM DESCRIPTION: CT - Facial Bones W/ Mpr - 05/05/2022 6:16 am CLINICAL HISTORY: Fall injury TECHNIQUE: Axial computed tomography images of the face without intravenous contrast. Sagittal and coronal reformatted images were created and reviewed. This CT exam was performed using one or more of the following dose reduction techniques: automated exposure control, adjustment of the mA and/o r kV according to patient size, and/or use of iterative reconstruction technique. COMPARISON: No relevant prior studies available. FINDINGS: Bones/joints: Comminuted, displaced bilateral nasal bone fractures. Mildly comminuted, m ildly displaced anterior nasal septal fracture. Minimally displaced anterior nasal spine fracture. Soft tissues: Perinasal and infranasal soft tissue swelling and laceration. Orbits: Unremarkable. Sinuses: Mild to moderate bilateral maxillary, ethmoid, frontal and sphenoid sinus mucosal thickeni ng. No air-fluid levels. IMPRESSION: Bilateral nasal bone, nasal septal and anterior nasal spine fractures. Electronically signed by: Gloria Whitten MD 05/04/2022 11:36 PM CDT Due to temporary technical issues with the PACS/Fluency reporting system, reports are being signed by the in house radiologists without review as a courtesy to insure prompt reporting. The interpreting radiologist is fully responsible for the content of the report.
--- NOTE | 2022-05-05 17:24 | RAD REPORT ---
EXAM DESCRIPTION: CT - Head C Spine Mpr Wo Con - 05/05/2022 6:15 am CLINICAL HISTORY: Fall injury TECHNIQUE: Axial computed tomography images of the head/brain and cervical spine without intravenous contrast. Sagittal and coronal reformatted images were created and reviewed. This CT exam was pe rformed using one or more of the following dose reduction techniques: automated exposure control, a djustment of the mA and/or kV according to patient size, and/or use of iterative reconstruction techn ique. COMPARISON: No relevant prior studies available. FINDINGS: Brain: Mild to moderate cerebral atrophy. Mild bilateral periventricular and subcortical white matter low-attenuation most compatible with chronic microvascular angiopathy. No hemorrhage. Ventricles: Unremarkable. No ventriculomegaly. Skull: See below. Sinuses: Mild to moderate bilateral maxillary, ethmoid and frontal sinus mucosal thickening. Mastoid air cells: Unremarkable as visualized. No mastoid effusion. Vertebrae: Grade 1 anterolisthesis of C3 on C4, C4 on C5 and C7 on T1. No acute fracture or subluxa tion. Discs/spinal canal/neural foramina: Moderate to severe multilevel degenerative changes. Most pronou nced disc degeneration with concentric disc osteophytes at C6-C7. Moderate to severe bilateral facet arthropathy, right greater than left. The central thecal sac is moderately to severely compromised at C6-C7. Multilevel foraminal compromise. Soft tissues: Mild to moderate midline forehead soft tissue swelling. Perinasal soft tissue swell ing and adjacent laceration. Vasculature: There is atherosclerotic disease of the internal carotid arteries and vertebral arteri es bilaterally. Nasal cavity/septum: Comminuted, mildly displaced bilateral nasal bone and anterior nasal septal fr actures. IMPRESSION: 1. No acute intracranial or extra-axial abnormality. 2. Bilateral nasal bone and nasal septal fractures. 3. No acute cervical spine injury. 4. Other findings as above. Electronically signed by: Gloria Whitten MD 05/04/2022 11:33 PM CDT Due to temporary technical issues with the PACS/Fluency reporting system, reports are being signed by the in house radiologists without review as a courtesy to insure prompt reporting. The interpreting radiologist is fully responsible for the content of the report.
[2022-05-05] MEDS ORDERED: HOME MED 1 EA UNK (Metoprolol Tartrate [Metoprolol Tartrate] 100 MG Tablet) PO SCH (21:00)
[2022-05-05] MEDS ORDERED: POTASSIUM CL SA 10 MEQ TAB PO ONE (21:00)
[2022-05-05] MEDS: TAMSULOSIN 0.4 MG SR CAP PO SCH (21:14)
[2022-05-06 05:51] LABS: Potassium 4.1 mmol/L (3.5-5.1)
[2022-05-06] MEDS: INSULIN -REGULAR HUMAN 50 UNIT/0.5 ML ML SQ SCH ×4 (07:30→19:59)
[2022-05-06] MEDS: NA CHLORIDE 0.9% 1,000 ML IV SCH (08:48)
[2022-05-06] MEDS: INSULIN GLARGINE 100 UNIT/ML SQ SCH (08:49)
[2022-05-06] MEDS: ROSUVASTATIN 10 MG TAB PO SCH (08:49)
[2022-05-06] MEDS: methocarbamoL 750 MG TAB PO SCH (08:49)
[2022-05-06] MEDS: THIAMINE 200 MG/2 ML INJ IVP SCH (08:49)
[2022-05-06] MEDS: APIXABAN 5 MG TABLET PO SCH ×2 (08:49→19:59)
[2022-05-06] MEDS: Oxycodone HCl/Acetaminophen 1 TAB TAB PO PRN (08:50)
[2022-05-06] MEDS: METOPROLOL TAR 50 MG TAB PO SCH ×2 (08:50→19:58)
[2022-05-06] MEDS: JARDIANCE 25 MG PO SCH (08:51)
[2022-05-06] MEDS: LEVOTHYROXINE SODIUM 50 MCG PO SCH (08:51)
[2022-05-06] MEDS ORDERED: ATORVASTATIN 40 MG TAB PO SCH (09:00)
[2022-05-06] MEDS: FOLIC ACID 5 MG/ML VIAL IVP SCH (09:00)
[2022-05-06] MEDS ORDERED: IBUPROFEN 200 MG TAB PO PRN (09:06)
[2022-05-06] MEDS: predniSONE 20 MG TAB PO SCH ×2 (09:48→19:59)
--- NOTE | 2022-05-06 10:10 | P.PN ---
Subjective Date of Service: 05/06/22 Chief Complaint: Weakness, Subjective: Other (Patient continues to be very weak to walk or ambulate recently had a bad fall been complaining of pain in his arms and shoulders seem a fallen on his outstretched hands so unable to make fist ending of a burning s ensation on his palms) Review of Systems General: Weakness Physical Examination - Vital Signs Temperature: 98.2 F Blood Pressure: 122/66 Pulse: 62 Respirations: 18 Pulse Ox (%): 96 - Physical Exam General: Alert, In no apparent distress, Oriented x3 Respiratory: Clear to auscultation bilaterally Cardiovascular: No edema, Normal S1 S2 Gastrointestinal: Normal bowel sounds, Soft and benign Musculoskeletal: Other (He is able to lift up his shoulder to about 90 degrees able to make a fist in both hands) Assessment And Plan - Current Problems (Diagnosis) (1) Generalized weakness Current Visit: Yes Status: Acute Plan: Patient is 76 years of age had a recent fall his alcohol levels were very high he has severe rheumatoid arthritis and receives injections apparently he may have fallen on his outstretched hands he complaining of pain in his right arm very weak and in his shoulders and his hands plan to give him some more pain medication nonsteroidals low-dose anti-inflammatories vital signs are stable plan to ambulate physical therapy labs reviewed possible discharge tomorrow patient has nasal fractures stable
[2022-05-06] MEDS: THIAMINE HCL 100 MG TABLET PO SCH (19:58)
[2022-05-06] MEDS: TAMSULOSIN 0.4 MG SR CAP PO SCH (19:58)
[2022-05-06] MEDS: HYDROCODONE/APAP 5/325 MG TAB PO PRN (20:59)
[2022-05-07] MEDS ORDERED: DIPHENHYDRAMINE 25 MG TAB/CAP PO PRN (00:23)
[2022-05-07] MEDS: HYDROCODONE/APAP 5/325 MG TAB PO PRN ×3 (00:34→14:16)
[2022-05-07] MEDS: JARDIANCE 25 MG PO SCH (08:19)
[2022-05-07] MEDS: INSULIN -REGULAR HUMAN 50 UNIT/0.5 ML ML SQ SCH ×4 (08:20→20:30)
[2022-05-07] MEDS: INSULIN GLARGINE 100 UNIT/ML SQ SCH (08:21)
[2022-05-07] MEDS: methocarbamoL 750 MG TAB PO SCH (08:23)
[2022-05-07] MEDS: APIXABAN 5 MG TABLET PO SCH ×2 (08:25→20:20)
[2022-05-07] MEDS: ROSUVASTATIN 10 MG TAB PO SCH (08:25)
[2022-05-07] MEDS: FOLIC ACID 5 MG/ML VIAL IVP SCH (08:26)
[2022-05-07] MEDS: predniSONE 20 MG TAB PO SCH ×2 (08:26→20:21)
[2022-05-07] MEDS: THIAMINE HCL 100 MG TABLET PO SCH ×2 (08:26→20:20)
[2022-05-07] MEDS: LEVOTHYROXINE SODIUM 50 MCG PO SCH (08:27)
[2022-05-07] MEDS: METOPROLOL TAR 50 MG TAB PO SCH ×2 (14:16→20:21)
--- NOTE | 2022-05-07 14:58 | RAD REPORT ---
EXAM DESCRIPTION: RAD - Hand Left 3 View - 05/07/2022 2:45 pm CLINICAL HISTORY: fall on outstreched hands - rule out fracture COMPARISON: None. FINDINGS: No fracture, dislocation or periosteal reaction noted. IP joint space narrowing seen with only minimal spurring component. No erosive changes. Mild degenerative changes at the trapezium first metacarpal articulation. Radiocarpal joint space is slightly narrowed. Calcifications are seen in th e triangular fibrocartilage IMPRESSION: Degenerative changes are present in the hand and wrist. No fracture or acute bone finding confirmed.
--- NOTE | 2022-05-07 15:00 | RAD REPORT ---
EXAM DESCRIPTION: RAD - Wrist Left 3 View - 05/07/2022 2:45 pm CLINICAL HISTORY: fall on outstreched hands - rule out fracture COMPARISON: No comparisons FINDINGS: No fractures confirmed. There is no dislocation or periosteal reaction noted. Faint lucenc y is seen in the radial styloid region on the oblique view have no correlate on the AP or lateral pro jections. Mild narrowing of the radiocarpal joint space is seen. Slight widening of the scapholunate joint space noted. Acute etiology for this widening is unlikely. IMPRESSION: No fracture identified. No acute finding suspected. Repeat imaging in 5-7 days recommended if the patient has continued symptoms concerning for occult ruslan ne process.
--- NOTE | 2022-05-07 15:01 | RAD REPORT ---
EXAM DESCRIPTION: RAD - Hand Right 3 View - 05/07/2022 2:45 pm CLINICAL HISTORY: fall on outstreched hands - rule out fracture COMPARISON: No comparisons FINDINGS: No fracture is identified. There is no dislocation or periosteal reaction noted. IP joint space narrowing is seen with minimal spurring but no erosive component. MCP joints are generally spa red. Mild degenerative change present at the trapezium first metacarpal articulation. Radiocarpal zane nt space is narrowed slightly. No suspicious soft tissue finding. IMPRESSION: Negative right hand examination for acute finding.
--- NOTE | 2022-05-07 15:04 | RAD REPORT ---
EXAM DESCRIPTION: RAD - Wrist Right 3 View - 05/07/2022 2:45 pm CLINICAL HISTORY: fall on outstreched hands - rule out fracture COMPARISON: Wrist Left 3 View dated 05/07/2022 FINDINGS: No fracture is identified. There is no dislocation or periosteal reaction noted. Widening of the scapholunate joint space is narrowed. This is not likely acute process. Similar configuration is seen on the left. Faint lucency seen in the scaphoid bone near the scapholunate joint space is not confirmed on any other projection. This would be an unusual location for a scaphoid injury. Radiocar pal joint space is narrowed slightly. No foreign body or other soft tissue abnormality. IMPRESSION: Degenerative changes are present as detailed. No acute fracture confirmed. Repeat imaging in 5-7 days is recommended if the patient has continued symptoms concerning for occult bone process.
--- NOTE | 2022-05-07 16:39 | P.DS ---
Admission Date: 05/05/22 Discharge Date: 05/07/22 Disposition: TRANSFER TO INPATIENT REHAB Discharge Condition: FAIR Reason for Admission: Weakness, Alcohol Intoxication Hospital Course: DIAGNOSES: # Traumatic Ground-Level Fall complicated by Bilateral Nasal Bone, Nasal Septal, and Anterior Nasal Spine Fractures # Alcohol Intoxication (resolved) # Coronary Artery Disease # Paroxysmal Atrial Fibrillation on Apixaban # Type II Diabetes Mellitus # Rheumatoid Arthritis HOSPITAL COURSE: Mr. Dontrell Cartwright is a 76 year old male with a past medical history significant for coronary artery disease, paroxysmal atrial fibrillation on apixaban, type 2 diabetes, rheumatoid arthritis who was admitted to the [facility] on 05/05/2022 for a traumatic ground-level fall. He was admitted to the Medicine service for further evaluation. Upon further evaluation, he was found to have alcohol intoxication. His traumatic ground- level fall was complicated by bilateral nasal bone and nasal septal fractures. While hospitalized, he continued to have generalized weakness. He was evaluated by physical therapy and it was recommended that he be discharged to inpatient rehab setting for continued therapy services. With the assistance of case management, he was accepted to [facility] [place] [place] inpatient rehab. While hospitalized, he never developed symptoms of alcohol withdrawal syndrome. I contacted Dr. Lomeli (DrKenya of Physical Therapy) and advised him of the possibility of alcohol withdrawal syndrome. He stated that he will let the staff at the inpatient rehab facility know, and should he develop these symptoms, they will treat him accordingly with benzodiazepines as needed. On 05/07/2022, he was seen on rounds and deemed medically stable for discharge. He was discharged with instructions to schedule follow-up appointments with his PCP 3-5 days post-discharge from inpatient rehab. He was given the opportunity to ask questions and reported no further questions. Furthermore, all questions were answered to the best of my ability. Today, I personally spent 20 minutes on his case, of which greater than 50% of the time was spent in patient education, counseling, and coordination of care as described above. Vital Signs/Physical Exam: Temp Pulse Resp BP Pulse Ox 97.4 F 74 18 135/72 97 05/07/22 12:00 05/07/22 14:16 05/07/22 14:16 05/07/22 14:16 05/07/22 14:16 General: Alert, In no apparent distress, Oriented x3 HEENT: Other (bruising and ecchymoses below bilateral eyes and nasal bridge) Neck: Supple, JVD not distended Respiratory: Clear to auscultation bilaterally, Normal air movement Cardiovascular: No edema, Regular rate/rhythm, Normal S1 S2, No gallops, No rubs, No murmurs Gastrointestinal: Normal bowel sounds, Soft and benign, Non-distended, No tenderness, No rebound, No guarding Musculoskeletal: No clubbing Integumentary: No rashes Neurological: Normal speech, Sensation intact, Cranial nerves 3-12 intact, Normal affect Laboratory Data at Discharge: WBC 7.20 K/uL (4.3-10.9) 05/04/22 21:52 Hgb 12.4 g/dL (13.6-17.9) L 05/04/22 21:52 Hct 37.4 % (39.6-49.0) L 05/04/22 21:52 Plt Count 215 K/uL (152-406) 05/04/22 21:52 Sodium 138 mmol/L (136-145) 05/06/22 05:13 Potassium 4.1 mmol/L (3.5-5.1) 05/06/22 05:13 BUN 12 mg/dL (7-18) 05/06/22 05:13 Creatinine 0.47 mg/dL (0.55-1.3) L 05/06/22 05:13 Glucose 141 mg/dL (74-106) H 05/06/22 05:13 Home Medications: Liraglutide [Victoza 2-Abundio] 1.8 mg SQ DAILY 06/18/14 Rosuvastatin Calcium [Crestor] 10 mg PO DAILY 06/18/14 Empagliflozin [Jardiance] 25 mg PO DAILY 12/12/[address] 30 mg PO DAILY 12/12/19 Metoprolol Tartrate 50 mg PO BID 12/12/19 Nitroglycerin 0.4 mg SL PRN PRN 12/12/19 Abatacept/Maltose [Orencia 250 mg Vial] 1 dose IV SEECOM 05/20/20 Ranolazine [Ranolazine ER] 500 mg PO DAILY 05/20/20 Tamsulosin [Flomax*] 0.4 mg PO BEDTIME #30 cap 05/22/20 Apixaban [Eliquis *] 5 mg PO DAILY 11/06/21 Aspirin [Aspirin EC 81 MG] 81 mg PO DAILY 11/06/21 Cholecalciferol (Vitamin D3) [Vitamin D 1000 Iu Tab*] 1,000 unit PO DAILY 11/06/21 Levothyroxine Sodium [Tirosint] 50 mcg PO DAILY 11/06/21 Vitamin B Complex [Vitamin B Complex*] 1 cap PO DAILY 11/06/21 methocarbamoL [Methocarbamol] 750 mg PO DAILY 11/06/21 Dimethicone [Cavilon Durable Barrier] 92 gm TP M,W,F 30 Days #1 cream..g. 11/11/21 Insulin Glargine,Hum.rec.anlog [Lantus] 20 units SQ DAILY #30 ml 11/11/21 Physician Discharge Instructions: 1. Please follow-up with your PCP 3-5 days after being discharged from rehab Diet: Regular Activity: Fall precautions Followup: NONE,NONE [Primary Care Provider] -
[2022-05-07] MEDS: TAMSULOSIN 0.4 MG SR CAP PO SCH (20:21)
[2022-05-07 20:24] VITALS: BP 162/65
[2022-05-07 23:35] VITALS: TEMP 97.1; O2SAT 97
== END 2022-05-07 21:00 | DRG 948 ==
LOC: ER 21:14 → ERHOLD 05-05 05:04 → 2ND 05-05 12:02 → OBSVTOIN 05-06 10:06
PROVIDERS: ADMIT Internal Medicine Sleep Medicine; ATTEND Internal Medicine
DX: R53.1 Weakness (principal); F10.129 Alcohol abuse with intoxication, unspecified; I25.10 Atherosclerotic heart disease of native coronary artery without angina pectoris; I10 Essential (primary) hypertension; K21.9 Gastro-esophageal reflux disease without esophagitis; E11.65 Type 2 diabetes mellitus with hyperglycemia; I48.0 Paroxysmal atrial fibrillation; M06.9 Rheumatoid arthritis, unspecified; S00.31XA Abrasion of nose, initial encounter; S02.2XXA Fracture of nasal bones, initial encounter for closed fracture; R27.0 Ataxia, unspecified; Z79.4 Long term (current) use of insulin; Z95.5 Presence of coronary angioplasty implant and graft; Z79.01 Long term (current) use of anticoagulants; Z79.82 Long term (current) use of aspirin; Z79.899 Other long term (current) drug therapy; Z79.890 Hormone replacement therapy; Z20.822 Contact with and (suspected) exposure to COVID-19; W18.30XA Fall on same level, unspecified, initial encounter; Y93.K1 Activity, walking an animal; Y92.9 Unspecified place or not applicable
CPT/HCPCS: 36415; 70450; 70486; 71045; 72125; 76377; 80048; 80320; 82140; 82947; 84484; 85025; 87811; 90471; 90714; 93005; 96374; 97110; 97116; 97161; 97530; 99285; G0378; J1815; J3411; J7030; J7512

== ENCOUNTER 2022-05-07 12:03 | Inpatient (IN) | payer OTHER ==
--- NOTE | 2022-05-07 12:54 | R.PREADM ---
PRE-ADMISSION SCREENING FORM SCREENING DATE AND TIME 05/07/2022 12:16 (CDT) ANTICIPATED REHAB ADMISSION DATE 05/09/2022 REFERRING FACILITY [facility] REFERR[facility] DATE AND TIME 05/07/2022 12:16 (CDT) ACUTE ADMIT DATE 05/06/2022 HOSPITALIZED IN LAST 60 DAYS? Yes Previous Rehabilitation(s): No. REFERRING PHYSICIAN Atilio Alves REHAB FACILITY [facility] CLINICAL LIAISON Phoebe Mariee PHYSICIAN REVIEWER Dr. Rolf Vazquez M.D. MR# [id number] NAME ALTHEA TOVAR ADDRESS [address] [address] PHONE [facility] [id number] DATE OF 1945 AGE 76 SSN# [id number] GENDER male MARITAL STATUS unknown race ADMIT FROM 02 - [facility] PRE-HOSPITAL LIVING SETTING 01 - Home (private home/apt. board/care, assisted living, retirement, transitional living) HOME TYPE AND DETAILS Type of home: single family house # of steps within the residence: unknown # of steps to enter the residence: unknown # of levels in the residence: 1 PRE-HOSPITAL LIVING WITH Family/Relatives FAMILY SUPPORT Yes PHONE PRIMARY FAMILY CONTACT ON ADM.? no IS PRIMARY FAMILY CONTACT AUTH. REP.? no PHONE 1ST CONTACT ON ADM. no IS 1ST CONTACT AUTH. REP.? no PHONE 2ND CONTACT ON ADM.? no PATIENT EMPLOYMENT STATUS Retired (for age) PATIENT EMPLOYER No Employer PAYOR INFORMATION: 1ST PAYOR NAME MEDICARE 1ST PAYOR PHONE 1ST PAYOR INJURY/ILLNESS DUE TO ACCIDENT? No ANOTHER DEMOCRAT RESPONSIBLE? No PRIMARY REHAB/ACUTE DIAGNOSIS: GENERALIZED WEAKNESS ONSET DATE 05/06/2022 REHAB IMPAIRMENT CATEGORY (PARTHA): 20 Miscellaneous (Misc) does NOT meet 60% rule PRIMARY DIAGNOSIS-RELATED SURGERIES: None COMORBID REHAB/ACUTE DIAGNOSES: - Non-Tiered Alcohol use, unspecified with intoxication, unspecified (F10.929) Ataxia, unspecified (R27.0) Unspecified fall, initial encounter (W19.XXXA) Paroxysmal atrial fibrillation (I48.0) INTERVENTIONS: - Generalized Weakness Aggressive PT/OT - Afib Assess/Monitor pt cardiac and respiratory status regularly Administer prescribed anticoagulants and monitor effectiveness Monitor pt labs Vitals will be monitored/assessed regularly - Ataxia Aggressive PT/OT - Alcohol Abuse Administer prescribed medications per MD order CIWA protocol RISK FOR COMPLICATIONS: - Falls Assess for alcohol withdrawal Assess for medication side effects Maintain call light within patient reach for easy access to nursing assistance Provide assistance getting out of bed and with ambulation Provide assistive devices - DVT Active and Passive ROM exercises Administer medications per MD order Assist patient with frequent position changes Elevate BLE - Skin Breakdown Encourage ambulation as tolerated Repositioning q 2 hours Use of pillows or foam wedges while in bed - Pain Anticipate the need for pain medication for optimal pain managment Administer prescribed pain medication as needed Assess pt for pain and Administer prescribed pain medication as needed Assist patient with frequent position changes at least every 2 hours Educate patient on relaxation and deep breathing techniques SUMMARY OF ACUTE HOSPITALIZATION: Pt. is a 76 yo male of unknown race. On 05/06/2022 he was [facility] with diagnosis GENERALIZED WEAKNESS. His impairment category is Debility 16 - Debility (16). Pre-morbidly, Pt. was independent/mod-I in Locomotion and Self-Care; and he had good Safety Awareness , Balance, Transfers Control, and Endurance. Currently, he has deficits of Locomotion, Safety Awareness, Transfers Control, Balance, Self-Care, an d Endurance. Pt. is now referred to [facility] for acute in-patient rehabilitation in order to maximize patient's functional independence in activities of daily living, strength, ROM, and mobi lity. Patient has realistic goal of being discharged at assistance level 6-Harsh to reside at Home with Fam davion/Relatives. PAST MEDICAL HISTORY Alcohol use, unspecified with intoxication, unspecified (F10.929) Ataxia, unspecified (R27.0) Paroxysmal atrial fibrillation (I48.0) Unspecified fall, initial encounter (W19.XXXA) Type 2 Diabetes CAD hypertension PAST SURGICAL HISTORY: Bilateral foot surgery Cardiac stents Right knee surgery MEDICATION ALLERGIES: No Known Drug Allergies (NKDA) ENVIRONMENTAL ALLERGIES: - Substance Allergies None Known - Other Allergies None Known CODE STATUS: Full code WEIGHT/HEIGHT/BMI: WEIGHT 179 lbs HEIGHT 5' 9" BMI 26.4 DIET: - Diet Type Regular - Diet - Solid Texture Regular - Diet - Liquid Texture Regular - Tube Feed N/A SKIN DIAGRAM: abrasions on Face; extent - small; stage - NS(Not Stageable). Treatment - Per Physician's Orders. REVIEW OF SYSTEMS: - Gen Alert and awake Lying in bed No apparent distress Oriented to: person, time, and place - Vital Signs Temperature: 97.4 F SBP/DBP: 135/72 Pulse: 51 Resp: 18 Vital signs stable, afebrile - CVS RRR VITAL SIGNS Temperature: 97.4 F SBP/DBP: 135/72 Pulse: 51 Resp: 18 Vital signs stable, afebrile MEDICATIONS/TREATMENT: Other- See attached MAR (Medication Administration Record). CURRENT SPHINCTER CONTROL: Pre-hospital bladder status: unspecified # of bladder accidents in the last 7 days prior to screenin Pre-hospital bowel status: unspecified # of bowel accidents in the last 7 days prior to screenin Last Bowel Movement Date: 05/07/2022 CURRENT LOCOMOTION STATUS: distance walked 0 feet DETAILED CURRENT FUNCTIONAL STATUS: - Bladder accident frequency: 7-Ind - No accidents in the past 7 days - Bowel accident frequency: 7-Ind - No accidents in the past 7 days - Walking score based on distance walked: 0(N/A) - Wheelchair score based on distance traveled: 0(N/A) QI SCORES: - Self-Care A. Eating 04-Supervision or touching assistance B. Oral hygiene 04-Supervision or touching assistance C. Toileting hygiene 03-Partial/moderate assistance E. Shower/bathe self 03-Partial/moderate assistance F. Upper body dressing 03-Partial/moderate assistance G. Lower body dressing 03-Partial/moderate assistance H. Putting on/taking off footwear 03-Partial/moderate assistance - Mobility A. Roll left and right 03-Partial/moderate assistance B. Sit to lying 03-Partial/moderate assistance C. Lying to sitting on side of bed 03-Partial/moderate assistance D. Sit to stand 03-Partial/moderate assistance E. Chair/xhd-kv-rekmy transfer 03-Partial/moderate assistance F. Toilet transfer 03-Partial/moderate assistance G. Car transfer 88-Not attempted due to medical condition or safety concerns I. Walk 10 feet 88-Not attempted due to medical condition or safety concerns J. Walk 50 feet with two turns 88-Not attempted due to medical condition or safety concerns K. Walk 150 feet 88-Not attempted due to medical condition or safety concerns L. Walking 10 feet on uneven surfaces 88-Not attempted due to medical condition or safety concerns M. 1 step (curb) 88-Not attempted due to medical condition or safety concerns N. 4 steps 88-Not attempted due to medical condition or safety concerns O. 12 steps 88-Not attempted due to medical condition or safety concerns P. Picking up object 88-Not attempted due to medical condition or safety concerns R. Wheel 50 feet with two turns 09-Not applicable S. Wheel 150 feet 09-Not applicable - Bladder and Bowel Bladder continence 0-Always continent Bowel continence 0-Always continent - Endurance Fair - Balance Poor - Safety Awareness Poor CURRENT FUNC. DEFICITS: Self-Care, Mobility, Endurance, Balance, and Safety Awareness THERAPY NOTES FROM ACUTE CARE: Attached. SPECIAL NEEDS: - Safety Concerns Skin breakdown precautions needed due to skin breakdown risk PRECAUTIONS: - Fall Precaution Low bed TABS alarm Bed alarm - DVT Risk due to restricted mobility - Skin Breakdown Risk due to restricted mobility and age PATIENT NEEDS ACTIVE AND ONGOING THERAPEUTIC INTERVENTION OF MULTIPLE THERAPY DISCIPLINES, INCLUDING: - Dietary and Nutrition Adequate Nutrition. Nutritional Education. Nutritional Supplements. - Occupational Therapy Cognitive Retraining. Patient needs Occupational Therapy for a daily minimum of 1.5 hours at least 5 out of 7 days, to improve Activities of Daily Living, including: Eating, Grooming, Bathing, Dressing, Toileting, Toilet Transfers, Community Reintegration, Higher functional activities, Adaptive Equipme nt, Splinting, Household Tasks, and Other activities as determined. Visual Perceptual Training. - Physical Therapy Patient needs Physical Therapy for a daily minimum of 1.5 hours at least 5 out of 7 days, to improve: Mobility, Strengthening, Transfers, Stretching, ROM, Endurance, Ability to manage stairs, Gait, and Balance. PATIENT NEEDS CLOSE MEDICAL SUPERVISION BY A REHABILITATION PHYSICIAN FOR: Coordination of Treatment Team Medical and Co-Morbidity Management Wound Care Diabetes Management Pain Management PATIENT REQUIRES 24X7 REHAB NURSING FOR MEDICAL AND FUNCTIONAL MGT. OF THE FOLLOWING DEFICITS: Disease Management Medication Management Patient requires 24x7 Rehabilitation Nursing for: Pain Issues, Identifying and preventing risk factor s, Monitoring and reporting current medical conditions, Assisting with ambulation and transfer, Katherine ting with all ADL-s, Teaching patients about disease process and medications, Family teaching, Provid ing safe environment, Bowel and Bladder Issues, Skin Integrity, and Medication Management Patient/Family Education Providing Safe Environment Skin Integrity PATIENT REQUIRES INTENSIVE, COORDINATED INTERDISCIPLINARY APPROACH TO REHAB: Arranging Home Equipment/Services Discharge Planning Family Intervention/Training Patient needs Dietary and Nutrition Services for: Adequate Nutrition, Nutritional Supplements, and Nu tritional Education Patient needs Video Game Script Writer and/or Case Management for: Discharge Planning, Arranging Home Equipmen t or Services, and Family Interventions Video Game Script Writer/Case Management PATIENT REHAB POTENTIAL: Ciera TOVAR is able and expected to receive 3 hours of individualized therapy daily on at least 5 of every 7 days Ciera Hurt prognosis for significant practical improvement within a reasonable period of time appe ars Good Expected level of measurable improvement will be of a practical value to Ciera BYRNESs functional cap acity or adaptations to impairments Has a viable Discharge Plan Medically appropriate; condition is sufficiently stable to participate in intensive rehab program DISCHARGE PLAN: - Estimated Length of Stay (days) 13. - Consensus on plan Discharge plan has been discussed with primary caregiver. Patient/Family is in agreement with the scotty n. Primary caregiver is in agreement with the plan. - Patient/Family Goals Return home independently. - Planned Living Setting Upon Discharge Home, to live with Family/Relatives. Transitional Living. RECOMMENDED CARE LEVEL: IRF RECOMMENDATION DETAILS: Recommended Admission to Comprehensive Rehabilitation Program to Increase Functional [place] SCREENER'S COMPLETENESS CONFIRMATION: - Screening Confirmation The patient data collection on this preadmission screening form is finished PHYSICIANS REVIEW AND ADMISSION DETERMINATION Admit - Based on my review of the Pre-Admission Screening results, in my medical judgment and experie nce, I concur with the findings and recommend admission to [facility], as this patient requires an IRF level of care. SIGNATURE PANEL: Clinical Liaison - [electronically] signed by Phoebe Mariee on 05/07/2022 at 12:34 (CDT) Physician Reviewer - [electronically] signed by Dr. Rolf Vazquez M.D. on 05/07/2022 at 12:53 (CDT )
--- OUTSIDE RECORDS SUMMARY | 2022-05-07 20:58 | XMS REPORT | Continuity of Care Document ---
:1945 Author Organization [facility] t Address [address] [place] [address] Care Team Providers Name Role Phone Asked, No Pcp Primary Care Physician Unavailable Asha Lomeli Attending Clinician Unavailable KATELYN MOLINA Attending Clinician Unavailable [email or web address] Attending Clinician Unavailable Katelyn Molina MD Attending Clinician Adelaide Palomino MD Attending Clinician ADELAIDE PALOMINO Attending Clinician Unavailable Katina Jurado Attending Clinician [phone] Elke Stevens MD Attending Clinician Julito Espino Attending Clinician Darrell Huang NP, Viv Attending Clinician MD ELKE STEVENS Attending Clinician Unavailable Provider, Unknown Attending Clinician Unavailable Christiano Gordon DPM Attending Clinician Allyn WESTFALL, Ernesto Awad Attending Clinician [phone] Daryn Hernandez Attending Clinician Unavailable Enedina Cantrell [...] Expiration Date S jana MEDICARE A B [id number] 2009 00:00:00 [employer] INDEMNITY [id number] 2016 00:00:00 MEDICARE B-[place]: [id number] 2009 NOVITAS [email or web address] 00:00:00 [employer] (MEDICARE [id number] SUPPLEMENT) CDC REVIEW [id number] 2020 00:00:00 Problems Condition Condition Condition Status [...] Preop Disease Active 2021-0 [facility] testing testing 8-04 st 00:00: Hospita 00 l CAD CAD [...] loss blood loss Heather kes anemia anemia [facility] Hyperglyce Hyperglyce Disease Active C HI [facility] Allergies, Adverse Reactions, Alerts Allergy Allergy Status Severity Reaction(s) Onset Inactive Treating Comm ents Source Name Type Date Date Clinician No Known DA Active U 2019-09 [facility] 2-22 Clear s 00:00: Hor[facility] 00 [facility] No Known DA Active U 2019-09 [facility] Allergie 2-22 Clear s 00:00: [address] NO KNOWN Allergy Active [facility] Family History Family Member Diagnosis Comments Start Date Stop Date Source Natural father Heart disease [facility] Natural mother Heart disease [facility] Social History Social Habit Start Date Stop Date Quantity Comments Source History [facility] History of tobacco Current smoker Me [facility]odist use Hospital History [facility] Alcohol Frequency Hospita l History [facility] Alcohol Std Drinks Hospit al History [facility] Alcohol Binge Hospital History [facility] 2022-03-09 2022-03-09 [address] [facility] [address] [facility] Transport Med 00:00:00 00:00:[address] History [facility] 2022-03-09 2022-03-[address] [facility] Housing Unable to 00:00:00 00:00:00 Medical Center Pay History [facility] 2022-03-09 2022-03-[address] [facility] Places 00:00:00 00:00:00 Medical Ce nter Lived History [facility] 2022-03-09 2022-03-[address] [facility] Housing Homeless 00:00:00 00:00:00 Medical Center Last Year Alcohol intake 2022-03-08 2022-03-08 [facility] (finding) Alcohol Comment 2021-04-12 2021-04-12 2-4 drinks per [facility] 00:00:00 00:00:00 [facility] Tobacco Comment 2021-04-05 2021-04-05 quit 1978 [facility] 00:00:00 00:00:00 Hospital Cigarettes smoked 2020-11-19 2020-11-19 [facility] (pack per 00:00:00 00:00:00 Medicin e day) - Reported Cigarette 2020-11-19 2020-11-19 [facility] of pack-years 00:00:00 00:00:00 Medicine Tobacco use and 2019-12-15 2019-12-[address] [facility] [address] Heather kes exposure 00:00:00 00:00:00 [facility] Sex Assigned At [birth year] [facility] 00:00:00 00:00:00 [facility] Smoking Status Start Date Stop Date Source Former smoker 2019-12-15 00:00:00 2019-12-15 00:00:[address] [facility] Medications Ordered Filled Start Stop Current Ordering Indication Dosage Frequency Signature Comments Components Source Medication Medication Date Date Medication? Clinician (SIG) Name Name atorgreytaleo 2022- Yes atheroscler 80mg QD Take 1 [...] by Cente r hr tablet mouth daily. atorvastati 2022- Yes atheroscler 80mg QD Take 1 [...] by mouth [facility] (PREVACID) 15:17: reflux nightly. M edical 30 MG 10 disease Center capsule empaglifloz Yes 25mg QD Take [address] in 03-09 by mouth [facility] (JARDIANCE) 15:17: daily. Medi radha 25 mg 10 Center tablet abatacept Yes Q28D Inject [facility] (ORENCIA) 03-09 intravenou Luke s infusion 15:17: sly every Medi radha 10 28 days. Center cholecalcif Yes vitamin D 1000U QD Take 1,[address] cooper, 03-09 deficiency Units by Luke s vitamin D3, 15:17: mouth Medic al 25 mcg 10 daily. Center (1,000 unit) capsule ranolazine Yes prevention 500mg [...] QD Take [address] one 03-09 edema due by mouth [facility] (ALDACTONE) 15:17: to chronic daily. Medical 25 MG 10 heart Center tablet failure bumetanide Yes hypertensio .5mg Take 0.[address] (BUMEX) 0.5 03-09 n mg by [facility]ukes MG tablet 15:17: mouth Medical 10 every Center other day. insulin Yes 45U QD Inject 45 [facility] glargine 03-09 Units [facility] (LANTUS, 15:17: subcutaneo Med ical SEMGLEE) 10 usly Center 100 unit/mL nightly injection Use as directed . levothyroxi Yes 50ug/d QD Take [address] ne 7- mcg/day by [facility] (Tirosint) 15:17: mouth Medica l 50 mcg Cap 10 daily. Center cyanocobala Yes prevention 1000ug QD Take 1,[address] min, 03-09 of vitamin mcg by [facility] vitamin 15:17: B12 mouth Medical B-12, 10 deficiency daily. Center (vitamin B-12) 1000 MCG tablet nitroglycer Yes acute .4mg Place 0.[address] in 7 episode of mg under [facility]ukes (NITROSTAT) 15:17: [...] by mouth [facility] (PREVACID) 15:17: reflux nightly. M edical 30 MG 10 disease Center capsule empaglifloz Yes 25mg QD Take [address] in 03-09 by mouth [facility] (JARDIANCE) 15:17: daily. Medi radha 25 mg 10 Center tablet abatacept Yes Q28D Inject [facility] (ORENCIA) 03-09 intravenou Luke s infusion 15:17: sly every Medi radha 10 28 days. [place] cholecalcif Yes vitamin D 1000U QD Take 1,[address] cooper, 03-09 deficiency Units by Luke s vitamin D3, 15:17: mouth Medic al 25 mcg 10 daily. [place] (1,000 unit) capsule ranolazine Yes prevention 500mg [...] QD Take [address] one 03-09 edema due by mouth [facility]ukes (ALDACTONE) 15:17: to chronic daily. Medical 25 MG 10 heart Center tablet failure bumetanide Yes hypertensio .5mg Take 0.[address] (BUMEX) 0.5 - n mg by Heatherkes MG tablet 15:17: mouth Medical 10 every Center other day. insulin Yes 45U QD Inject 45 [facility] glargine 7- Units [facility] (LANTUS, 15:17: subcutaneo Med ical SEMGLEE) 10 ly [place] 100 unit/mL nightly injection Use as directed . levothyroxi Yes 50ug/d QD Take [address] ne 7- mcg/day by [place] (Tirosint) 15:17: mouth Medica l 50 mcg Cap 10 daily. [place] cyanocobala Yes prevention 1000ug QD Take 1,[address] min, 7- of vitamin mcg by [facility] vitamin 15:17: B12 mouth Medical B-12, 10 deficiency daily. [place] (vitamin B-12) 1000 MCG tablet metoprolol 2021- No prevention 100mg QD Take [address] tartrate 03-09 of anginal mg by Elvira es (LOPRESSOR) 12:45: 00:00 pain in mouth M edical 100 MG 46 :00 coronary daily. [place] tablet artery disease metoprolol 2021- No prevention 100mg QD Take [address] tartrate 03-09 of anginal mg by Elvira es (LOPRESSOR) 12:45: 00:00 pain in mouth M edical 100 MG 46 :00 coronary daily. [place] tablet artery disease isosorbide 2022- Yes 30mg QD Take [address] mononitrate 03-09 tablet (30 L ukes (IMDUR) 30 00:00: 23:59 mg total) M edical MG 24 hr 00 :00 by mouth Center tablet daily. isosorbide 2022- Yes 30mg QD Take [address] mononitrate 03-09 tablet (30 L ukes (IMDUR) 30 00:00: 23:59 mg total) M edical MG 24 hr 00 :00 by mouth Center tablet daily. cefdinir 2021- No 300mg Take 1 [facility] (OMNICEF) 03-09 capsule [facility]ukes 300 MG 00:00: 23:59 (300 mg Medical capsule 00 :00 total) by Center mouth every 12 (twelve) hours for 7 days. cefdinir 2021- No 300mg Take 1 [facility] (OMNICEF) 03-09 capsule [facility] 300 MG 00:00: 23:59 (300 mg Medical capsule 00 :00 total) by Center mouth every 12 (twelve) hours for 7 days. benazepriL 2021- No hypertensio 20mg QD Take [address] (LOTENSIN) 03-08-30 n by mouth Luke s 20 MG 22:10: 00:00 daily. Medical tablet 51 :00 [place] benazepriL 2021- hypertensio 20mg QD Take [address] (LOTENSIN) 03-08-30 n by mouth Luke s 20 MG 22:10: 00:00 daily. Medical tablet 51 :00 [place] rosuvastati 2021- No atheroscler 20mg QD Take [address] n (CRESTOR) 03-08-30 otic by mouth Elvira es 40 MG 22:07: 00:00 cardiovascu daily . M edical tablet 19 :00 [facility] rosuvastati 2021- No atheroscler 20mg QD Take [address] n (CRESTOR) 03-08-30 otic by mouth Elvira es 40 MG 22:07: 00:00 cardiovascu daily . M edical tablet 19 :00 [facility] insulin 2021- No type 2 100U QD Inject [address] glargine 03-08-30 diabetes Units [facility]ukes (LANTUS) 22:05: 00:00 mellitus subcutaneo Medical 100 unit/mL 34 :00 usly every Ce nter injection morning Use as directed . insulin 2021- No type 2 100U QD [...] QD Take by Metho di with C -[address] 20-folic 13:40: daily. Hospita acid [...] 25mg QD Take 25 mg [facility] in 8-[address] (Jardiance) 13:40: daily. Hosp [...] QD Take by Metho di with C 04-[address] 20-folic 13:40: daily. Hospita acid 1 mg 04 l capsule aspirin Yes 81mg QD Take 81 mg [facility] (ECOTRIN) [address] 81 MG 13:40: daily. Hospita enteric 04 l coated tablet ranolazine Yes 500mg Q.5D Take 500 Me thodi (RANEXA) 8-[address] 500 MG 12 13:40: mouth 2 Hospi ta hr ER 04 (two) l tablet times a day. apixaban 0 Yes Q.5D Take by Method i (ELIQUIS) [address] mg tablet 13:40: (two) [...] 100mg Q.5D Take 1 Met hodi succinate 8-06 09-[address] XL 00:00: 04:59 (100 mg [...] 29 Medicin e rosuvastati Yes Take by [place] radha n (CRESTOR) 3-02 mouth. Colleg e [...] Take by [facility] [place] 3-02 mouth. College 20:15: of 29 Medicin e insulin Yes 100U Inject 100 [facility] glargine 2-04 Units into Colle ge (LANTUS) 18:20: the skin. of 100 UNIT/ML 51 Medicin injection e irbesartan- Yes 1{tbl} Take 1 [facility] hydrochloro 2-04 Tablet by Col lege thiazide 18:20: mouth. of (AVALIDE) 51 Medicin 300-12.5 MG e per tablet rosuvastati Yes Take by [place] radha n (CRESTOR) 2-04 mouth. Colleg e 20 MG 18:20: of tablet 51 Medicin e nitroglycer [address] 0.4 B a[facility]or in [...] College 18:20: of 51 Medicin e Liraglutide Yes Inject [facility] (VICTOZA) 2-04 into the Colleg e 18 MG/3ML 18:19: skin of SOPN 03 daily. Medicin e Metoprolol Yes Take by [facility] Succinate 2-04 mouth. College 100 MG CS24 18:19: of 03 Medicin e benazepril 0 No 20mg Take 20 mg Román (LOTENSIN) 2-04 02-04 by mouth. Col lege 20 MG 18:17: 00:00 of tablet 24 :00 Medicin e ELIQUIS 5 2020-0 Yes [facility] MG TABS - College 00:00: of 00 Medicin e ELIQUIS 5 2020-0 Yes Román MG TABS - [place] 00:00: of 00 Medicin e bumetanide 2020-0 Yes [facility] (BUMEX) 0.5 1-26 College MG tablet 00:00: of 00 Medicin e JARDIANCE 2020-0 Yes Román 25 MG TABS - College 00:00: of 00 Medicin e Tamsulosin 2020-0 Yes [facility] HCl 0.4 MG - College CAPS 00:00: of 00 Medicin e bumetanide 2020-0 Yes [facility] (BUMEX) 0.5 -26 College MG tablet 00:00: of 00 Medicin e JARDIANCE 2020-0 Yes Román 25 MG TABS - College 00:00: of 00 Medicin e Tamsulosin 2020-0 Yes [facility] HCl 0.4 MG 10-04 College CAPS 00:00: of 00 Medicin e Ranolazine 2019-09 Yes [facility] 500 MG TB12 10-11 [place] 00:00: of Medicin e lansoprazol 2019-09 Yes [facility] 10-11 [place] (PREVACID) 00:00: of 30 MG 00 Medicin capsule e Ranolazine 2019-09 Yes [facility] 500 MG TB12 10-11 [place] 00:00: of 00 Medicin e lansoprazol 2019-09 Yes [facility] 10-11 [place] (PREVACID) 00:00: of 30 MG 00 Medicin capsule e nitroglycer Yes acute .4mg Place 0.[address] [facility] in 24 episode of mg under Lukes (NITROSTAT) 12:33: [...] Take [address] n (CRESTOR) 9- otic by mouth Luke s 40 MG 12:33: cardiovascu daily . Me dical tablet 42 lar disease Center metFORMIN Yes type 2 1000mg Q.5D Take [...] QD Inject [address] glargine 24 diabetes Units [facility]ukes (LANTUS) 12:33: mellitus subcutaneo Medical 100 unit/mL 42 usly every Ce nter injection morning Use as directed . benazepriL Yes hypertensio 20mg QD Take [address] (LOTENSIN) 9- n by mouth [facility]ukes 20 MG 12:33: daily. Medical tablet 42 Center empaglifloz Yes 25mg QD Take [address] in 06-02 by mouth [facility] (JARDIANCE) 12:33: daily. Medi radha 25 mg 42 Center tablet abatacept Yes Q28D Inject [facility] (ORENCIA) 06-02 intravenou Luke s infusion 12:33: sly every Medi radha 42 28 days. Center nitroglycer Yes acute .4mg Place 0.[address] in 06-02 episode of mg under [facility]ukes (NITROSTAT) 12:33: [...] Take [address] n (CRESTOR) 06-02 otic by mouth Luke s 40 MG 12:33: cardiovascu daily . Me dical tablet [address] [facility] disease Center metFORMIN Yes type 2 1000mg Q.5D Take [...] injection morning Use as directed . benazepriL 2020-0 Yes hypertensio 20mg QD Take [address] (LOTENSIN) 9-24 n by mouth Lukes 20 MG 12:33: daily. Medical tablet 42 Center empaglifloz 2020-0 Yes 25mg QD Take [address] in 924 by mouth [facility]ukes (JARDIANCE) 12:33: daily. Medi radha 25 mg 42 Center tablet abatacept 2020-0 Yes Q28D Inject [facility] (ORENCIA) 9 intravenou Luke s infusion 12:33: sly every Medi radha 42 28 days. Center tamsulosin 2020-0 Yes .4mg QD Take 0.4 [...] 24 hr 00 daily. Center capsule metoprolol 2019-0 2020- No 50mg Q.5D Take [address] tartrate 6-17 06-17 tablet (50 Luke s (LOPRESSOR) 00:00: 23:59 mg total) Medical 50 MG 00 :00 by mouth 2 Center tablet (two) times daily. metoprolol 2020-0 2020- No 50mg Q.5D Take [address] tartrate 6-17 06-17 tablet (50 Luke s (LOPRESSOR) 00:00: 23:59 mg total) Medical 50 MG 00 :00 by mouth 2 Center tablet (two) times daily. clopidogreL 2019-0 2020- No 75mg QD Take [address] (PLAVIX) 75 4-10 04-10 tablet (75 L ukes mg tablet 00:00: 23:59 mg total) Me dical 00 :00 by mouth Center daily. clopidogreL No 75mg QD Take [address] (PLAVIX) 75 12-17-10 tablet (75 L ukes mg tablet 00:00: 23:59 mg total) Me dical 00 :00 by mouth Center daily. clopidogrel 2020- No 75mg Take 75 mg Román (PLAVIX) 75 10 -04 by mouth. Co llege MG Tablet 00:00: 00:00 of 00 :00 Medicin e ranolazine 2020- No 500mg Q.5D Take [address] (RANEXA) 12-16 tablet [facility] 500 MG 12 00:00: 23:59 (500 mg Medi radha hr tablet 00 :00 total) by Cente r mouth 2 (two) times daily. ranolazine 2020- No 500mg Q.5D Take [address] (RANEXA) 12-16 tablet [facility] 500 MG 12 00:00: 23:59 (500 mg Medi radha hr tablet 00 :00 total) by Cente r mouth 2 (two) times daily. Immunizations Ordered Immunization Filled Immunization Date Status Commen ts Source Name Name PFIZER COVID-19 MRNA 2020-12-14 Completed [facility] VACCINATION 00:00:00 [facility] PFIZER COVID-19 MRNA 2020-12-14 Completed [facility]ist VACCINATION 00:00:00 [facility] PFIZER COVID-19 MRNA 2020-12-14 Completed Meth odist VACCINATION 00:00:00 [facility] PFIZER COVID-19 MRNA 2020-12-14 Completed Meth odist VACCINATION 00:00:00 [facility] PFIZER COVID-19 MRNA 2020-11-23 Completed Meth odist VACCINATION 00:00:00 [facility] PFIZER COVID-19 MRNA 2020-11-23 Completed Meth odist VACCINATION 00:00:00 [facility] PFIZER COVID-19 MRNA 2020-11-23 Completed Meth odist VACCINATION 00:00:00 [facility] PFIZER COVID-19 MRNA 2020-11-23 Completed Meth odist VACCINATION 00:00:00 Hospital Vital Signs Vital Name Observation Time Observation Value Comments Source HEIGHT 2020-02-03 00:00:00 182.9 cm WEIGHT 2020-02-03 00:00:00 95.255 kg WEIGHT 2022-03-09 04:31:00 81.557 kg WEIGHT 2022-03-09 04:31:00 81.557 kg WEIGHT 2022-03-09 04:31:00 81.557 kg Systolic blood 2020-11-08 20:15:00 161 mm[Hg] [facility] Medicine Diastolic blood 2020-11-08 20:15:00 84 mm[Hg] [facility] Medicine Heart rate 2020-11-08 20:15:00 99 /min [facility] Body height 2020-11-08 20:15:00 177.8 cm [facility] Body weight 2020-11-08 20:15:00 79.833 kg [facility] BMI 2020-11-08 20:15:00 25.25 kg/m2 [facility] Systolic blood 2020-10-13 17:37:00 131 mm[Hg] [facility] Medicine Diastolic blood 2020-10-13 17:37:00 75 mm[Hg] [facility] Medicine Heart rate 2020-10-13 17:37:00 72 /min [facility] Body height 2020-10-13 17:37:00 177.8 cm [facility] Body weight 2020-10-13 17:37:00 79.833 kg [facility] BMI 2020-10-13 17:37:00 25.25 kg/m2 [facility] WEIGHT 2020-06-02 00:00:00 91.627 kg WEIGHT 2020-04-06 00:00:00 91.627 kg HEIGHT 2020-03-08 00:00:00 180 cm HEIGHT 2020-02-21 00:00:00 180 cm WEIGHT 2020-02-21 00:00:00 94.983 kg HEIGHT 2020-02-21 00:00:00 180 cm WEIGHT 2020-02-21 00:00:00 94.983 kg Heart rate 2022-03-09 12:13:00 77 /min [facility] Systolic blood 2022-03-09 12:08:00 94 mm[Hg] [facility] Diastolic blood 2022-03-09 12:08:00 58 mm[Hg] [facility] Body temperature 2022-03-09 12:08:00 36.56 Carmita [facility] Respiratory rate 2022-03-09 12:08:00 16 /min [facility] Oxygen saturation in 2022-03-09 12:08:00 95 /min [facility] Arterial blood by Medical Ce nter Pulse oximetry Body weight 2022-03-09 04:31:00 81.557 kg [facility] BMI 2022-03-09 04:31:00 25.17 kg/m2 [facility] Body temperature 2021-04-14 17:27:20 37.17 Carmita [facility] Respiratory rate 2021-04-14 17:27:20 18 /min [facility] Oxygen saturation in 2021-04-14 17:27:20 93 /min [facility] Arterial blood by Pulse oximetry Systolic blood 2021-04-14 17:27:20 132 mm[Hg] [facility] pressure Diastolic blood 2021-04-14 17:27:20 66 mm[Hg] [facility] pressure Heart rate 2021-04-14 17:27:20 83 /min [facility] Body height 2021-04-12 11:47:00 180.3 cm [facility] Body weight 2021-04-12 11:47:00 84.823 kg [facility] BMI 2021-04-12 11:47:00 26.08 kg/m2 [facility] Procedures Procedure Date / Time Performing Clinician Source Performed POCT-GLUCOSE METER 2022-03-09 11:57:00 Adelaide Palomino [facility] APTT 2022-03-09 08:58:00 Adelaide Palomino [facility] POCT-GLUCOSE METER 2022-03-09 08:38:00 Adelaide Palomino [facility] HEMOGLOBIN A1C 2022-03-09 05:47:00 Adelaide Palomino [facility] BASIC METABOLIC PANEL (7) 2022-03-09 05:47:00 Adelaide Palomino [facility] CBC W/PLT COUNT & AUTO 2022-03-09 05:47:[address] [facility] MAGNESIUM 2022-03-09 05:47:00 Candelario [facility] TSH/FREE T4 IF INDICATED 2022-03-09 05:47:00 Adelaide Palomino [facility] CBC W/PLT COUNT & AUTO 2022-03-09 05:47:00 Candelario [facility] APTT 2022-03-09 02:37:00 Candelario [facility] HIGH SENSITIVITY TROPONIN 2022-03-09 00:38:00 Adelaide Palomino [facility] URINALYSIS W/ REFLEX 2022-03-08 23:13:00 Adelaide Palomino [facility] URINE CULTURE [facility] URINE CULTURE 2022-03-08 23:13:[facility] POCT-GLUCOSE METER 2022-03-08 21:04:00 Candelario [facility] APTT 2022-03-08 20:01:00 Candelario [facility] COMPREHENSIVE METABOLIC 2022-03-08 20:01:00 Candelario [facility] CBC (HEMOGRAM ONLY) 2022-03-08 20:01:00 Candelario [facility] B-TYPE NATRIURETIC FACTOR 2022-03-08 20:01:00 Adelaide Palomino [facility] (BNP) [facility] ECG 12-LEAD 2022-03-08 19:42:04 Unknown, Hl7 Doctor [facility] ECG 12-LEAD 2022-03-08 19:42:04 Unknown, Hl7 Doctor [facility] ECG 12-LEAD 2022-03-08 19:42:04 Unknown, Hl7 [facility] HIGH SENSITIVITY TROPONIN 2022-03-08 18:38:00 Alfonzo Gee [facility] POC GLUCOSE 2021-04-14 12:28:00 Elke Stevens H ospital BASIC METABOLIC PANEL 2021-04-14 11:04:00 Mc[facility] ESTIMATED GFR 2021-04-14 11:04:00 [facility] 2021-04-14 08:20:00 Elke Stevens [facility] W/AUTO DIFF BASIC METABOLIC PANEL 2021-04-14 08:20[facility]00 [facility] LEVEL 2021-04-14 08:20:00 Michael Joseph [facility] ESTIMATED GFR 2021-04-14 08:20:00 Elke Stevens ospital POC GLUCOSE 2021-04-13 22:15:00 [facility] BASIC METABOLIC PANEL 2021-04-13 20:54:00 [facility] L[facility] 2021-04-13 20:54:00 [facility] Patrese THYROID STIMULATING 2021-04-13 20:54:00 [facility] HORMONE Patrese T4, FREE 2021-04-13 20:54:00 [facility] Patrese ESTIMATED GFR 2021-04-13 20:54:00 [facility] 12-LEAD 2021-04-13 19:21:14 Michael Joseph [facility] POC GLUCOSE 2021-04-13 17:32:00 Elke Stevens ospital HC COMPLETE BLD COUNT 2021-04-13 08:54:00 Elke Stevens [facility] W/AUTO DIFF BASIC METABOLIC PANEL 2021-04-13 08:54:00 Elke Stevens [facility] B NATRIURETIC PEPTIDE 2021-04-13 08:54:00 Michael Joseph [facility] MAGNESIUM LEVEL 2021-04-13 08:54:00 Michael Joseph [facility] ESTIMATED GFR 2021-04-13 08:54:00 [facility] POC GLUCOSE 2021-04-12 22:58:00 Elke Stevens ospital XR PELVIS 1 OR 2 VW 2021-04-12 15:14:[facility] 2021-04-12 15:06:00 Elke Stevens H ospital OR FL > 1 HOUR 2021-04-12 14:51:00 Elke Stevens H ospital XR PELVIS 1 OR 2 VW 2021-04-12 14:30:00 [facility]LECTIVE 2021-04-12 13:09:00 Julito Espino spital ENDOTRACHEAL AIRWAY ARTHROPLASTY, HIP, TOTAL, 2021-04-12 13:00:00 Elke Stevens [facility] ANTERIOR APPROACH ABO AND RH CONFIRMATION 2021-04-12 11:40:00 Elke Stevens [facility] POC GLUCOSE 2021-04-12 10:55:00 Elke Stevens ospital COVID-19 QUALITATIVE 2021-04-11 13:16:00 Elke Stevens [facility] RT-PCR URINE CULTURE 2021-04-05 21:20:00 Elke Stevens ospital HC COMPLETE BLD COUNT 2021-04-05 20:01:00 Elke Stevens [facility] W/AUTO DIFF COMPREHENSIVE METABOLIC 2021-04-05 20:01:00 Elke Stevens [facility] PANEL PROTHROMBIN TIME WITH INR 2021-04-05 20:01:00 Elke Stevens [facility] PARTIAL THROMBOPLASTIN 2021-04-05 20:01:00 Elke Stevens [facility] TIME (PTT) URINALYSIS SCREEN AND 2021-04-05 20:01:00 Elke Stevens [facility] MICROSCOPY, WITH REFLEX TO CULTURE TYPE AND SCREEN 2021-04-05 20:01:00 [facility] HEMOGLOBIN A1C 2021-04-05 20:01:00 [facility] ESTIMATED GFR 2021-04-05 20:01:00 [facility] ECG PRE/POST OP 2021-04-05 [facility]57[id number] 2020-09-07 00:00:00 WHEED [facility] [id number] 2020-09-07 00:00:00 WHEED [facility] [id number] 2020-09-07 00:00:00 WHEED [facility] [id number] 2020-09-01 00:00:00 SINSI [facility] [id number] 2020-08-30 00:00:00 RADMO [facility] [id number] 2020-08-30 00:00:00 [facility] Plan of Care Planned Activity Planned Date Details Comments Source Future Scheduled 2022-05-[address] [facility] Test 00:00:00 (#1) [code = [facility] INFLUENZA VACCINE (#1)] Future Scheduled 2022-05-[address] [facility] Test 00:00:00 (#1) [code = [facility] INFLUENZA VACCINE (#1)] Future Scheduled 2022-04-26 HEPATITIS B VACCINES [facility] 04:45:36 (1 of 3 - 3-dose Hospital series) [code = HEPATITIS B VACCINES (1 of 3 - 3-dose series)] Future Scheduled 2022-04-26 [facility] 04:45:36 screening Hospital (procedure) [code = 622311835] Future Scheduled 2022-04-26 SHINGLES VACCINES (1 Met [...] [code = INFLUENZA Hospital VACCINE] Future Scheduled 2022-04-26 HEPATITIS B VACCINES [facility] 04:45:36 (1 of 3 - 3-dose Hospital series) [code = HEPATITIS B VACCINES (1 of 3 - 3-dose series)] Future Scheduled 2022-04-26 [facility] 04:45:36 screening Hospital (procedure) [code = 174086315] Future Scheduled 2022-04-26 SHINGLES VACCINES (1 Met [...] Hospital VACCINE] Future Scheduled 2021-09-13 [facility] 11:21:21 screening Hospital (procedure) [code = 749321407] Future Scheduled 2021-09-13 SHINGLES VACCINES [facility] Test 11:21:21 (#1) [code = Hospital SHINGLES VACCINES (#1)] Future Scheduled 2021-09-13 INFLUENZA VACCINE [facility] 11:21:21 [code = INFLUENZA Hospital VACCINE] Future Scheduled 2021-09-13 COVID-19 VACCINE (3 [facility] Test 11:21:21 - Booster for Pfizer Hospita l series) [code = COVID-19 VACCINE (3 - Booster for Pfizer series)] Future Scheduled 2021-09-13 [facility] 11:21:21 screening Hospital (procedure) [code = 599149155] Future Scheduled 2021-09-13 SHINGLES VACCINES Method ist [...] [facility] 00:00:00 - Booster for Pfizer Medical Center series) [code = COVID-19 VACCINE (3 - Booster for Pfizer series)] Future Scheduled 2021-05-16 COVID-19 VACCINE ([address] [facility] Test 00:00:00 - Booster for Pfizer Medical Center series) [code = COVID-19 VACCINE (3 - Booster for Pfizer series)] Future Scheduled 2021-05-[address] [facility] Test 00:00:00 (#1) [code = [facility] INFLUENZA VACCINE (#1)] Future Scheduled 2021-05-[address] [facility] Test 00:00:00 (#1) [code = [facility] INFLUENZA VACCINE (#1)] Future Scheduled 2015-06-21 PNEUMOCOCCAL 65+ YRS [facility] Test 00:00:00 (2 - PCV) [code = Medical nter PNEUMOCOCCAL 65+ YRS (2 - PCV)] Future Scheduled 2015-06-21 PNEUMOCOCCAL 65+ Y[facility] Test 00:00:00 (2 - PCV) [code = Medical Ce nter PNEUMOCOCCAL 65+ YRS (2 - PCV)] [...] [facility]ukes Test 00:00:00 of 2) [code = [facility] SHINGLES VACCINES (1 of 2)] Future [...] ter VACCINE (1)] Future Scheduled COVID-19 Vaccine [facility] of Test Evaluation [code = Medicine COVID-19 Vaccine Evaluation] Future Scheduled TETANUS SHOT (ADULT) [facility] Test [code = TETANUS SHOT Medicin e (ADULT)] Future Scheduled BMI FOLLOW UP PLAN [facility] of Test [code = BMI FOLLOW Medicine UP PLAN] Future Scheduled HEPATITIS C [facility] ege of Test SCREENING [code = Medicine HEPATITIS C SCREENING] Future Scheduled ZOSTER VACCINE ([address] [facility] Test 2) [code = ZOSTER Medicine VACCINE (1 of 2)] Future Scheduled MEDICARE AWV [facility] Callie ege of Test (Initial) [code = Medicine MEDICARE AWV (Initial)] Future Scheduled FALL SCREEN [code = [employer] of Test FALL SCREEN] Medicine Future Scheduled PNEUMOVAX >=65 [facility] Co llege of Test (PPSV23) [code = Medicine PNEUMOVAX >=65 (PPSV23)] Future Scheduled FLU VACCINE > 6 [facility] C ollege of Test MONTHS [code = FLU Medicine VACCINE > 6 MONTHS] Future Scheduled RI DEBRIDEMENT OF Ordered: [facility] of Test NAILS, 6 OR MORE 11/19/2020 Medicine [code = 25171] Future Scheduled TETANUS SHOT (ADULT) [facility] Test [code = TETANUS SHOT Medicin e (ADULT)] Future Scheduled COVID-19 Vaccine (1) [facility] Test [code = COVID-19 Medicine Vaccine (1)] Future Scheduled BMI FOLLOW UP PLAN [facility] Test [code = BMI FOLLOW Medicine UP PLAN] Future Scheduled Hepatitis C [facility] ege of Test screening Medicine (procedure) [code = 743872922] Future Scheduled ZOSTER VACCINE (1 of [facility] Test 2) [code = ZOSTER Medicine VACCINE (1 of 2)] Future Scheduled MEDICARE AWV [facility] Callie ege of Test (Initial) [code = Medicine MEDICARE AWV (Initial)] Future Scheduled FALL SCREEN [code = [facility] or [facility] of Test FALL SCREEN] Medicine Future Scheduled PNEUMOVAX >=65 [facility] Co llege of Test (PPSV23) [code = Medicine PNEUMOVAX >=65 (PPSV23)] Future Scheduled FLU VACCINE > 6 [facility] ollege of Test MONTHS [code = FLU Medicine VACCINE > 6 MONTHS] Encounters Start End Encounter Admission Attending Care Care Encounter Source Date/Time Date/Time Type Type Clinicians Facility Department ID 2022-05-[address] [facility] [id number] Common 14:31:01 [facility] 2022-04-25 Outpatient Armani [facility] [id number] Common 14:19:01 [facility] 2022-04-18 Outpatient Armani [facility] [id number] Common 14:31:01 [facility] 2022-03-21 Outpatient Armani [facility] [id number] Common 09:48:01 [facility] 2022-03-19 Outpatient Lomeli, STLMLC STLMLC [id number] Common 13:22:01 [facility] 2022-03-02 Outpatient Lomeli, STLMLC STLMLC [id number] Common 13:54:01 [facility] 2021-10-04 Outpatient STLMLC STLMLC [id number] Common 11:49:32 [id number] [facility] 2021-06-13 Outpatient [facility] Surgery [id number] SLE 15:13:[address] [facility] 2019-12-15 Inpatient SLEH SLEH [id number] [facility] 15:39:17 [id number] 2022-05-01 2022-05-01 Outpatient GC_TEG_Gupt PRIV PRIV [id number] [facility] 00:00:00 00:00:00 a_A [id number] Medica l 2022-04-27 2022-04-27 ambulatory STLMLC STLMLC [id number] Common 00:00:00 00:00:00 [facility] 2022-04-27 2022-04-27 ambulatory STLMLC STLMLC [id number] Common 00:00:00 00:00:00 [facility] 2022-04-27 2022-04-27 ambulatory STLMLC STLMLC [id number] Common 00:00:00 00:00:00 [facility] 2022-04-25 2022-04-25 ambulatory STLMLC STLMLC [id number] Common 00:00:00 00:00:00 [facility] 2022-04-05 2022-04-05 ambulatory STLMLC STLMLC [id number] Common 00:00:00 00:00:00 [facility] 2022-03-21 2022-03-21 ambulatory STLMLC STLMLC [id number] Common 00:00:00 00:00:00 [facility] 2022-03-08 2022-03-09 [facility] [id number] [facility] 17[facility]34[facility] 15:17:00 [facility] 2022-03-08 2022-03-09 Hospital ER Katelyn Molina [facility] [id number] [facility] 17:34:00 15:17:00 Encounter Candel[facility] 2022-03-08 2022-03-09 Outpatient ER [id number] [facility] 17:34:00 15:17:00 [facility] 2022-03-08 2022-03-[address] [facility] [id number] [facility] 00:00:00 23:59:00 Lenny e of Medicin e 2022-03-08 2022-03-08 [facility] [id number] 00:00:00 00:00:00 [facility] 2022-03-08 2022-03-08 Orders [facility] [id number] 00:00:00 00:00:00 [facility] 2022-02-19 2022-02-19 [facility] [id number] Common 00:00:00 00:00:00 [facility] 2021-09-12 2021-09-12 Outpatient GC_TEG_Gupt PRIV PRIV 210 [id number] [facility] 03:16:00 03:16:00 a_A [id number] Medica l 2021-09-12 2021-09-12 Outpatient GC_TEG_Gupt PRIV PRIV 210 [id number] [facility] 03:16:00 03:16:00 a_A [id number] Medica l 2021-09-12 2021-09-12 Outpatient Jurado, PRIV PRIV [id number] 00:00:00 00:00:00 Katina [id number] 2021-04-12 2021-04-14 [facility], 1.2.840.1 [id number] Methodi 05:44:00 13:39:00 Encounter Elke N. 99551.1.1 333 s t 3.430.2.7 Hospit a .3.967055 l .8 2021-04-12 2021-04-12 Surgery Hilda, 1.2.840.1 [id number] Methodi 08:00:00 10:40:[address] El[address]395.1.[address] 3.430.2.7 Hospit a .3.586453 l .8 2021-04-12 2021-04-12 Anesthesia Srinivas, Julito 1.2.840.1 [id number] Methodi 08:00:00 10:09:00 Event [facility] 79539.1.[address] 3.430.2.7 Hospit a .3.250091 l .8 2021-04-11 2021-04-11 Lab Hilda, 1.2.840.1 [id number] Methodi 08:06:36 08:21:36 [address]31[address] 3.430.2.7 Hospit a .3.105824 l .8 2021-04-11 2021-04-11 Travel 1.2.840.1 1.2.352.006 [id number] Methodi 00:00:00 00:00:[address] 3.430.2.7 0.2.7.3.698 Ho spita .3.308209 084.8 l .8 2021-04-05 2021-04-05 Pre-Admiss Hilda, 1.2.840.1 [id number] Methodi 13:30:00 14:30:00 ion Elke N. 95568.1.[address] Testing 3.430.2.7 Hospit a .3.828387 l .8 2021-04-05 2021-04-05 Travel 1.2.840.1 1.2.236.841 [id number] Methodi 00:00:00 00:00:[address] 3.430.2.7 0.2.7.3.698 Ho spita .3.539776 084.8 l .8 2021-02-23 2021-02-23 Documentat Provider, 1.2.840.1 [id number] Methodi 00:00:00 00:00:00 ion Unknown 16144.1.[address] 3.430.2.7 Hospit a .3.009794 l .8 2020-11-08 2020-11-08 Office JUDI Gordon 1.2.840.114 [id number] [facility] 13:46:36 14:16:36 Visit Christiano Stevens AMBULATOR 350.1.13.21 College Y 0.2.7.2.686 of [id number] [facility] tara 825 e 2020-10-13 2020-10-13 Office JUDI Gruber 1.2.840.114 [id number] [facility] 10:58:31 15:07:02 Visit Ernesto AMBULATOR 350.1.13.21 College Ritesh Y 0.2.7.2.686 of [id number] [facility] tara 825 e 2020-09-06 2020-09-23 Inpatient YOLY Hernandez, HCAMN REHA [id number] [facility] 13:25:00 00:09:07 Daryn 26 [facility] 2020-08-30 2020-09-12 Inpatient HCAMN RAKESH [id number] [facility] 19:48:00 13:50:28 92 [facility] 2020-08-31 2020-08-31 Outpatient Vallabhajos HCACL LABO G00 [id number] [facility] 00:09:00 00:09:00 Val grace Enedina [facility] 2020-08-10 2020-08-10 Outpatient YOLY [facility] [id number] SLE 00:00:00 00:00:00 2020-07-05 2020-07-05 Outpatient STLMLC STLC [id number] Common 00:00:00 00:00:00 [facility] 2020-06-06 2020-06-06 Outpatient STLMLC STLMLC [id number] Common 00:00:00 00:00:00 [facility] 2020-06-02 2020-06-02 Outpatient EL [facility] [id number] SLE 00:00:00 00:00:00 RAZA 2020-04-20 2020-04-20 Outpatient [facility] [id number] SLE 00:00:00 00:00:00 RAZA 2020-04-06 2020-04-06 Outpatient [facility] [id number] SLE 00:00:00 00:00:00 RAZA 2020-03-08 2020-03-08 Outpatient [facility] [id number] SLE 00:00:00 00:00:00 RAZA 2020-02-21 2020-02-21 [facility] [id number] SLE 16:41:00 16:41:00 2020-02-18 2020-02-18 Outpatient [facility] [id number] SLE 00:00:00 00:00:00 Results Test Description Test Time Test Comments Results Result Comments Source Urine culture 2022-03-10 09:46:28 Test Item Value Reference Range Interpretation Comme nts Result (test code = 6463-4) No [facility] [id number] 09:46:28 Test Item Value Reference Range Interpretation Comments Result (test code = 6463-4) No growth [facility] Diego[facility]/FREE T4 IF [id number] 14:28:31 Test Item Value Reference Range Interpretation Comments THYROID STIMULATING HORMONE 3.392 uIU/mL 0.350-4.940 (BEAKER) (test code = 772) POC-Glucose [id number] 12:11:39 Test Item Value Reference Range Interpretation Comments POC-Glucose Meter (test 231 mg/dL 70-110 H : TE STED AT [facility] code = 1538) 6720 [facility], 770 30: Sales Service Manager/Techni sandip ID = [id number] for MICKEY HANSON Lab Interpretation (test Abnormal code = 71685-4) [facility]ucose [id number] 12:11:39 Test Item Value Reference Range Interpretation Comments POC-Glucose Meter (test 231 mg/dL 70-110 H : TE STED AT [facility] code = 1538) 6720 [facility], 770 30: Sales Service Manager/Techni sandip ID = [id number] for MICKEY HANSON Lab Interpretation (test Abnormal code = 26540-1) [facility]SE [id number] 12:11:39 Test Item Value Reference Range Interpretation Comments POC-GLUCOSE METER 231 mg/dL 70-110 H : TESTED A T [facility] 6720 (BEAKER) (test code = BRENDA Dykes [facility], 1538) [address]: Sales Service Manager/Techni sandip ID = [id number] for OR MICKEY JOLLEY [id number] 09:19:56 Test Item Value Reference Range Interpretation Comments PARTIAL THROMBOPLASTIN TIME 80.6 seconds 22.5-36.0 H (BEAKER) (test code = 760) POCT-GLUCOSE [id number] 08:55:25 Test Item Value Reference Range Interpretation Comments POC-GLUCOSE METER 251 mg/dL 70-110 H : TESTED A T [facility] 6720 (BEAKER) (test code = BRENDA Dykes [facility], 1538) [address]: Sales Service Manager/Techni sandip ID = [id number] for MICKEY RAMÍREZ HEMOGLOBIN [id number] 08:41:18 Test Item Value Reference Range Interpretation [...] 5.7- 6.4% indicates increased risk for diabetes (prediabetes)."Sales Service Manager ID - ADMBASIC METABOLIC [id number] 06:41:02 Test Item Value Reference Range Interpretation [...] S NOT APPLICABLE FOR DIALYSIS PATIEN TS. Sales Service Manager ID - [id number] 06:41:02 Test Item Value Reference Range Interpretation Comments MAGNESIUM (BEAKER) (test code = 1.9 mg/dL 1.6-2.6 627) Sales Service Manager ID - ADMINCBC W/PLT COUNT & AUTO [id number] 06:17:11 Test Item Value Reference Range Interpretation [...] 0-1 PERCENT (BEAKER) (test code = 2801) [id number] 03:15:56 Test Item Value Reference Range Interpretation Comments PARTIAL THROMBOPLASTIN TIME 80.9 seconds 22.5-36.0 H (BEAKER) (test code = 760) Urinalysis w/Microscopic + Reflex to [id number] 03:13:36 Test Item Value Reference Range Interpretation Comments Color, UA (test code Light Yellow = 5778-6) Clarity, UA (test Clear code = 5767-9) Specific [place], UA 1.024 1.001-1.035 (test code = 5811-5) pH, UA (test code = 6.5 5.0-8.0 5803-2) Protein, UA (test Negative Negative code = 54961-2) Glucose, UA (test >1000 mg/dL Negative A code = 365) Ketones, UA (test Negative Negative code = 2514-8) Bilirubin, UA (test Negative Negative code = 01070-7) Blood, UA (test code Large Negative A = 86705-6) Nitrite, UA (test Negative Negative code = 5802-4) Leukocytes, UA (test Moderate Negative A code = 5799-2) Urobilinogen, UA 0.2 mg/dL 0.2-1.0 (test code = 37244-8) RBC, UA (test code = 165 See_Comment [Autom ated 42570-4) message] The system which generated this result [...] Bacteria, UA (test None Seen code = 37576-0) Squam Epithel, UA 3 See_Comment [Automate d (test code = 79372-8) messag e] The system which generated this result transmit [place] reference range : /HPF. The reference range was not used to interpret this result as normal/abnormal . Crystals, Urine (test None Seen code = 50435-6) Specimen Source (test code = 2795) MAEVE (test code = MAEVE) Sales Service Manager ID - [auto]Sales Service Manager ID - tech Lab Interpretation Abnormal (test code = 03410-8) [facility]/Microscopic + Reflex to Culture 2022-03-09 03:13:36 Test Item Value Reference Range Interpretation Comments Color, UA (test code Light Yellow = 5778-6) Clarity, UA (test Clear code = 5767-9) Specific [place], UA 1.024 1.001-1.035 (test code = 5811-5) pH, UA (test code = 6.5 5.0-8.0 5803-2) Protein, UA (test Negative Negative code = 83085-5) Glucose, UA (test >1000 mg/dL Negative A code = 365) Ketones, UA (test Negative Negative code = 2514-8) Bilirubin, UA (test Negative Negative code = 81600-4) Blood, UA (test code Large Negative A = 77664-9) Nitrite, UA (test Negative Negative code = 5802-4) Leukocytes, UA (test Moderate Negative A code = 5799-2) Urobilinogen, UA 0.2 mg/dL 0.2-1.0 (test code = 56501-3) RBC, UA (test code = 165 See_Comment [Autom ated 88052-0) message] The system which generated this result [...] Bacteria, UA (test None Seen code = 60794-2) Squam Epithel, UA 3 See_Comment [Automate d (test code = 83992-1) messag e] The system which generated this result transmit [place] reference range : /HPF. The reference range was not used to interpret this result as normal/abnormal . Crystals, Urine (test None Seen code = 94080-7) Specimen Source (test code = 2795) MAEVE (test code = MAEVE) Sales Service Manager ID - [auto]Sales Service Manager ID - tech Lab Interpretation Abnormal (test code = 15908-8) [facility]/ REFLEX URINE [id number] 03:13:36 Test Item Value Reference Range Interpretation [...] = 1521) SOURCE(BEAKER) (test code = 2795) Sales Service Manager ID - [auto]Sales Service Manager ID - techHIGH SENSITIVITY TROPONIN [id number] 02:53:30 Test Item Value Reference Range Interpretation Comments HIGH SENSITIVITY 57 pg/ml See_Comment H [Automated message] TROPONIN I (test code = The system which 5869302) generated this result transmitted ref erence range: <=35. Th e reference range was not used to int erpret this result as normal/abnormal . Sales Service Manager ID - AFUA GThe MILL OPERATOR HEAD STAT High Sensitivity Troponin-I results should be used in conjunction with other diagnostic information such as ECG, clinical observations and information, and patient symptoms to aid in the diagnosis of NE.POCT-GLUCOSE [id number] 21:16:48 Test Item Value Reference Range Interpretation Comments POC-GLUCOSE METER 265 mg/dL 70-110 H : TESTED A T [facility] 6720 (BEAKER) (test code = BRENDA [place], 1538) [address]: Sales Service Manager/Techni sandip ID = [id number] for Ana Chandra B-TYPE NATRIURETIC FACTOR (BNP)2022-03-08 20:42:35 Test Item Value Reference Range Interpretation Comments B-TYPE NATRIURETIC PEPTIDE (BEAKER) 166 pg/mL 0-100 H (test code = 700) Sales Service Manager ID - BSCOMPREHENSIVE METABOLIC [id number] 20:33:55 Test Item Value Reference Range Interpretation [...] S NOT APPLICABLE FOR DIALYSIS PATIEN TS. Sales Service Manager ID - [id number] 20:29:11 Test Item Value Reference Range Interpretation [...] (test code = 413) HIGH SENSITIVITY TROPONIN [id number] 19:40:23 Test Item Value Reference Range Interpretation Comments HIGH SENSITIVITY 72 pg/ml See_Comment H [Automated message] TROPONIN I (test code = The system which 0764588) generated this result transmitted ref erence range: <=35. Th e reference range was not used to int erpret this result as normal/abnormal . Sales Service Manager ID - BSThe MILL OPERATOR HEAD STAT High Sensitivity Troponin-I results should be used in conjunctionwith other diagnostic information such as ECG, clinical observations and information, and patient symptoms to aid in the diagnosis of NE.POC [id number] 12:29:21 Test Item Value Reference Range Interpretation Comments POC glucose (test code 198 mg/dL 65-99 H Opera tor Name: Jh = 93958-9) YoivisaDevice I D: [id number] able: [facility] Notified greenhouse manager Interpretation Abnormal (test code = 39824-0) [facility] [id number] 12:29:21 Test Item Value Reference Range Interpretation Comments POC glucose (test code 198 mg/dL 65-99 H Opera tor Name: Jh = 78456-2) YoahanaDevice I D: [id number] able: [facility] Notified greenhouse manager Interpretation Abnormal (test code = 32450-6) [place] [address] [id number] 00:10:08 Test Item Value Reference Range Interpretation Comments Ventricular rate (test code = 253) Atrial rate (test code = 255) RI interval (test code = 266) QRSD interval [...] 05-APR-2021 14:57,-premature atrial complexes are now present- [place] [address] [id number] 00:10:08 Test Item Value Reference Range Interpretation Comments Ventricular rate (test code = 253) Atrial rate (test code = 255) RI interval (test code = 266) QRSD interval [...] 05-APR-2021 14:57,-premature atrial complexes are now present- [facility] and [id number] 12:53:00 Test Item Value Reference Range Interpretation Comments ABO grouping (test code = 883-9) O Rh type (test code = 31828-3) POS [facility] and [id number] 12:53:00 Test Item Value Reference Range Interpretation Comments ABO grouping (test code = 883-9) O Rh type (test code = 40205-8) [facility] [id number] 17:13:58 Test Item Value Reference Range Interpretation Comments Interpretation (test Negative results do code = 1992903) not preclude 2019-nCoV infection and should not be used as the sole basis for treatment or other patient management decisions. Negative results must be combined with clinical observations, patient history, and epidemiological information. COVID-19 qualitative Not-Detected Not-Detected RT-PCR result (test code = 84635-0) COVID-19 qualitative See link below for C ase Number: RT-PCR (test code = PDF Lab Report [id number]) [facility] [id number] 17:13:58 Test Item Value Reference Range Interpretation Comments Interpretation (test Negative results do code = 7830897) not preclude 2019-nCoV infection and should not be used as the sole basis for treatment or other patient management decisions. Negative results must be combined with clinical observations, patient history, and epidemiological information. COVID-19 qualitative Not-Detected Not-Detected RT-PCR result (test code = 78844-2) COVID-19 qualitative See link below for C ase Number: RT-PCR (test code = PDF Lab Report [id number]) [facility] BvzrcilaBWUD-LrT-6 (COVID-19) RNA [Presence] in Respiratory specimen by MICHI with probe [id number] 12:13:10 Test Item Value Reference Range Interpretation Comments SARS-CoV-2 (COVID-19) RNA Not detected Not-Detected [Presence] in Respiratory specimen by MICHI with probe detection (test code = 32180-2) Whether patient is employed in a healthcare setting (test code = 79434-5) Whether the patient has symptoms related to condition of interest (test code = 29105-3) Patient was hospitalized because of this condition (test code = 74230-9) Whether the patient was admitted to intensive care unit (ICU) for condition of interest (test code = 89196-7) Whether patient resides in a congregate care setting (test code = 99042-7) ECG Pre/Post [id number] 18:34:55 Test Item Value Reference Range Interpretation Comments Ventricular rate (test code = 253) Atrial rate (test code = 255) RI interval (test code = 266) QRSD interval (test code = 260) QT interval (test code = 264) QTC interval (test code = 265) P axis 1 (test code = 267) QRS axis 1 (test code = 268) T wave axis (test code = 270) EKG impression (test Normal sinus code = 273) rhythm-Normal ECG-No significant change was found when compared to prior ECG- [facility] Pre/Post [id number] 18:34:55 Test Item Value Reference Range Interpretation Comments Ventricular rate (test code = 253) Atrial rate (test code = 255) RI interval (test code = 266) QRSD interval (test code = 260) QT interval (test code = 264) QTC interval (test code = 265) P axis 1 (test code = 267) QRS axis 1 (test code = 268) T wave axis (test code = 270) EKG impression (test Normal sinus code = 273) rhythm-Normal ECG-No significant change was found when compared to prior ECG[facility] [id number] 22:39:00 Test Item Value Reference Range Interpretation Comments ABO grouping (test code = 883-9) O Rh type (test code = 11816-6) POS Antibody screen (gel) (test code = NEG 890-4) [facility] [id number] 22:39:00 Test Item Value Reference Range Interpretation Comments ABO grouping (test code = 883-9) O Rh type (test code = 05438-4) POS Antibody screen (gel) (test code = NEG 890-4) [facility] [id number] 22:22:53 Test Item Value Reference Range Interpretation Comments Urine culture (test SEE COMMENT Bacteriu noah screen code = 0501700) negative. [facility] [id number] 22:22:53 Test Item Value Reference Range Interpretation Comments Urine culture (test SEE COMMENT Bacteriu noah screen code = 3676515) negative. [id number] 17:05:00 Test Item Value Reference Range Interpretation Comments GLUBED (test code = GLUBED) 204 mg/dL 70-110 H [id number] 07:54:00 Test Item Value Reference Range Interpretation Comments GLUBED (test code = GLUBED) 142 mg/dL 70-110 H [id number] 21:15:00 Test Item Value Reference Range Interpretation Comments GLUBED (test code = GLUBED) 215 mg/dL 70-110 H [id number] 16:48:00 Test Item Value Reference Range Interpretation Comments GLUBED (test code = GLUBED) 191 mg/dL 70-110 H [id number] 14:28:00 Test Item Value Reference Range Interpretation Comments GLUBED (test code = GLUBED) 154 mg/dL 70-110 H [id number] 11:42:00 Test Item Value Reference Range Interpretation Comments GLUBED (test code = GLUBED) 180 mg/dL 70-110 H CBC W/AUTO [id number] 10:45:00 Test Item Value Reference Range Interpretation [...] = 0.00 X10 3uL 0.00-0.01 N NRBC#) [place] [id number] 07:17:00 Test Item Value Reference Range Interpretation Comments GLUBED (test code = GLUBED) 149 mg/dL 70-110 H [id number] 16:29:00 Test Item Value Reference Range Interpretation Comments GLUBED (test code = GLUBED) 202 mg/dL 70-110 H [id number] 11:50:00 Test Item Value Reference Range Interpretation Comments GLUBED (test code = GLUBED) 197 mg/dL 70-110 H [id number] 07:00:00 Test Item Value Reference Range Interpretation Comments GLUBED (test code = GLUBED) 147 mg/dL 70-110 H [id number] 21:04:00 Test Item Value Reference Range Interpretation Comments GLUBED (test code = GLUBED) 235 mg/dL 70-110 H [id number] 20:47:00 Test Item Value Reference Range Interpretation Comments GLUBED (test code = GLUBED) 193 mg/dL 70-110 H [id number] 11:57:00 Test Item Value Reference Range Interpretation Comments GLUBED (test code = GLUBED) 213 mg/dL 70-110 H [id number] 08:47:00 Test Item Value Reference Range Interpretation Comments GLUBED (test code = GLUBED) 156 mg/dL 70-110 H COMPREHENSIVE METABOLIC [id number] 08:15:00 Test Item Value Reference Range Interpretation [...] 50.0-136.0 N code = ALKP) CBC W/AUTO [id number] 07:36:00 Test Item Value Reference Range Interpretation [...] = 0.00 X10 3uL 0.00-0.01 N NRBC#) [id number] 20:21:00 Test Item Value Reference Range Interpretation Comments GLUBED (test code = GLUBED) 264 mg/dL 70-110 H [id number] 15:51:00 Test Item Value Reference Range Interpretation Comments GLUBED (test code = GLUBED) 183 mg/dL 70-110 H [id number] 15:02:00 Test Item Value Reference Range Interpretation Comments GLUBED (test code = GLUBED) 271 mg/dL 70-110 H [id number] 11:46:00 Test Item Value Reference Range Interpretation Comments GLUBED (test code = GLUBED) 218 mg/dL 70-110 H [id number] 07:59:00 Test Item Value Reference Range Interpretation Comments GLUBED (test code = GLUBED) 150 mg/dL 70-110 H [id number] 22:17:00 Test Item Value Reference Range Interpretation Comments GLUBED (test code = GLUBED) 257 mg/dL 70-110 H [id number] 16:49:00 Test Item Value Reference Range Interpretation Comments GLUBED (test code = GLUBED) 234 mg/dL 70-110 H [id number] 11:03:00 Test Item Value Reference Range Interpretation Comments GLUBED (test code = GLUBED) 209 mg/dL 70-110 H [id number] 17:37:00 Test Item Value Reference Range Interpretation Comments GLUBED (test code = GLUBED) 276 mg/dL 70-110 H [id number] 11:56:00 Test Item Value Reference Range Interpretation Comments GLUBED (test code = GLUBED) 210 mg/dL 70-110 H [id number] 08:17:00 Test Item Value Reference Range Interpretation Comments GLUBED (test code = GLUBED) 165 mg/dL 70-110 H [id number] 20:27:00 Test Item Value Reference Range Interpretation Comments GLUBED (test code = GLUBED) 294 mg/dL 70-110 H [id number] 16:43:00 Test Item Value Reference Range Interpretation Comments GLUBED (test code = GLUBED) 244 mg/dL 70-110 H [id number] 11:45:00 Test Item Value Reference Range Interpretation Comments GLUBED (test code = GLUBED) 205 mg/dL 70-110 H [id number] 07:07:00 Test Item Value Reference Range Interpretation Comments GLUBED (test code = GLUBED) 187 mg/dL 70-110 H [id number] 21:16:00 Test Item Value Reference Range Interpretation Comments GLUBED (test code = GLUBED) 239 mg/dL 70-110 H [id number] 16:50:00 Test Item Value Reference Range Interpretation Comments GLUBED (test code = GLUBED) 189 mg/dL 70-110 H [id number] 16:50:00 Test Item Value Reference Range Interpretation Comments GLUBED (test code = GLUBED) 214 mg/dL 70-110 H [id number] 07:22:00 Test Item Value Reference Range Interpretation Comments GLUBED (test code = GLUBED) 212 mg/dL 70-110 H [id number] 21:12:00 Test Item Value Reference Range Interpretation Comments GLUBED (test code = GLUBED) 280 mg/dL 70-110 H [id number] 16:11:00 Test Item Value Reference Range Interpretation Comments GLUBED (test code = GLUBED) 272 mg/dL 70-110 H [id number] 11:09:00 Test Item Value Reference Range Interpretation Comments GLUBED (test code = GLUBED) 261 mg/dL 70-110 H [id number] 07:00:00 Test Item Value Reference Range Interpretation Comments GLUBED (test code = GLUBED) 199 mg/dL 70-110 H BASIC METABOLIC [id number] 06:56:00 Test Item Value Reference Range Interpretation [...] 9.1 mg/dl 8.0-10.5 N LINE DRAWCBC W/AUTO [id number] 06:44:00 Test Item Value Reference Range Interpretation [...] 0.00 X10 3uL 0.00-0.01 N NRBC#) LINE [id number] 03:10:00 Test Item Value Reference Range Interpretation Comments GLUBED (test code = GLUBED) 278 mg/dL 70-110 H [id number] 19:59:00 Test Item Value Reference Range Interpretation Comments GLUBED (test code = GLUBED) 290 mg/dL 70-110 H [id number] 16:29:00 Test Item Value Reference Range Interpretation Comments GLUBED (test code = GLUBED) 232 mg/dL 70-110 H - XR HIP W/PEL UNI 2+V [id number] 14:54:00 [facility] 1945 Sex: M FAX: Daryn Potter [phone] [place]: St: [facility] FAX: Eh Vasques MD [phone] Name: ALTHEA TOVAR [facility] : 1945 Age/S: 75/M [address] [facility] Unit #: [id number] Loc: [address] Phys: [place] [address] Acct: [id number] Dis Date: Status: ADM IN PHONE #: [phone] Exam Date: 09/12/2020 [facility] FAX #: [phone] Reason: HIP PAIN EXAMS: CPTCODE: [id number] XR HIP W/PEL UNI 2+[place] [address] B2 EXAM: - XR HIP W/PEL UNI 2+V RT HISTORY: HIP PAIN COMPARISON: None FINDINGS: No acute fracture or dislocation. Severe acetabular joint space narrowing with subchondral sclerosis and osteophyte formation. No aggressive osseous lesions. Moderate vascular calcifications. 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 at 6224 Reported and signed by: Jonathan Hyde M.D. CC: Daryn Hernandez MD; Eh Saldana MD Technologist: RANDALL PATRICIA Trnhird Date/Time/By: 09/12/2020 (6893) : By: [email or web address] PAGE 1 Signed Report FAX: Daryn Potter [phone] [place]: St: ADM FAX: Eh Vasques MD [phone] Name: ALTHEA TOVAR [facility] : 1945 Age/S: 75/M [address] [facility] Unit #: [id number] Loc: [address] Phys: [place] [address] Acct: [id number] Dis Date: Status: ADM IN PHONE #: [phone] Exam Date: 09/12/2020 1351 FAX #: [phone] Reason: HIP PAIN EXAMS: CPT CODE: [id number] XR HIP W/PEL UNI 2+[place] [address] (Continued)Orig Print D/T: S: 09/12/2020 (7228) PAGE 2 Signed [id number] 10:21:00 Test Item Value Reference Range Interpretation Comments GLUBED (test code = GLUBED) 248 mg/dL 70-110 H BASIC METABOLIC [id number] 09:22:00 Test Item Value Reference Range Interpretation [...] code = CA) 9.2 mg/dl 8.0-10.5 N [id number] 07:24:00 Test Item Value Reference Range Interpretation Comments GLUBED (test code = GLUBED) 187 mg/dL 70-110 H [id number] 16:22:00 Test Item Value Reference Range Interpretation Comments GLUBED (test code = GLUBED) 224 mg/dL 70-110 H [id number] 14:55:00 Test Item Value Reference Range Interpretation Comments GLUBED (test code = GLUBED) 284 mg/dL 70-110 H [id number] 14:52:00 Test Item Value Reference Range Interpretation Comments GLUBED (test code = GLUBED) 201 mg/dL 70-110 H [id number] 12:08:00 Test Item Value Reference Range Interpretation Comments GLUBED (test code = GLUBED) 214 mg/dL 70-110 H [id number] 06:53:00 Test Item Value Reference Range Interpretation Comments GLUBED (test code = GLUBED) 166 mg/dL 70-110 H [id number] 20:16:00 Test Item Value Reference Range Interpretation Comments GLUBED (test code = GLUBED) 274 mg/dL 70-110 H [id number] 12:00:00 Test Item Value Reference Range Interpretation Comments GLUBED (test code = GLUBED) 190 mg/dL 70-110 H [id number] 07:37:00 Test Item Value Reference Range Interpretation Comments GLUBED (test code = GLUBED) 183 mg/dL 70-110 H [id number] 16:55:00 Test Item Value Reference Range Interpretation Comments GLUBED (test code = GLUBED) 231 mg/dL 70-110 H [id number] 12:04:00 Test Item Value Reference Range Interpretation Comments GLUBED (test code = GLUBED) 168 mg/dL 70-110 H [id number] 08:23:00 Test Item Value Reference Range Interpretation Comments GLUBED (test code = GLUBED) 163 mg/dL 70-110 H [id number] 20:03:00 Test Item Value Reference Range Interpretation Comments GLUBED (test code = GLUBED) 222 mg/dL 70-110 H [id number] 16:42:00 Test Item Value Reference Range Interpretation Comments GLUBED (test code = GLUBED) 168 mg/dL 70-110 H [id number] 10:37:00 Test Item Value Reference Range Interpretation Comments GLUBED (test code = GLUBED) 199 mg/dL 70-110 H [id number] 07:16:00 Test Item Value Reference Range Interpretation Comments GLUBED (test code = GLUBED) 159 mg/dL 70-110 H [id number] 20:13:00 Test Item Value Reference Range Interpretation Comments GLUBED (test code = GLUBED) 225 mg/dL 70-110 H [id number] 16:33:00 Test Item Value Reference Range Interpretation Comments GLUBED (test code = GLUBED) 213 mg/dL 70-110 H [id number] 10:34:00 Test Item Value Reference Range Interpretation Comments GLUBED (test code = GLUBED) 180 mg/dL 70-110 H COMPREHENSIVE METABOLIC [id number] 08:07:00 Test Item Value Reference Range Interpretation [...] 50.0-136.0 N code = ALKP) Specimen comments: .[id number] 08:07:00 Test Item Value Reference Range Interpretation Comments MAGNESIUM (test code = MAG) 1.9 mg/dl 1.8-2.4 N Specimen comments: .CBC W/AUTO [id number] 07:51:00 Test Item Value Reference Range Interpretation [...] = 0.00 X10 3uL 0.00-0.01 N NRBC#) [id number] 07:08:00 Test Item Value Reference Range Interpretation Comments GLUBED (test code = GLUBED) 125 mg/dL 70-110 H [id number] 04:04:00 Test Item Value Reference Range Interpretation Comments GLUBED (test code = GLUBED) 138 mg/dL 70-110 H [id number] 04:04:00 Test Item Value Reference Range Interpretation Comments GLUBED (test code = GLUBED) 144 mg/dL 70-110 H URINALYSIS [id number] 22:30:00 Test Item Value Reference Range Interpretation [...] cath if unable to obtain Clean CatchURINALYSIS [id number] 22:14:00 Test Item Value Reference Range Interpretation [...] Straight cath if unable to obtain Clean [id number] 20:18:00 Test Item Value Reference Range Interpretation Comments GLUBED (test code = GLUBED) 132 mg/dL 70-110 H [id number] 10:52:00 Test Item Value Reference Range Interpretation Comments GLUBED (test code = GLUBED) 130 mg/dL 70-110 H [id number] 05:22:00 Test Item Value Reference Range Interpretation Comments GLUBED (test code = GLUBED) 102 mg/dL 70-110 N BASIC METABOLIC [id number] 04:53:00 Test Item Value Reference Range Interpretation [...] = CA) 8.9 mg/dl 8.0-10.5 N LINE [id number] 04:53:00 Test Item Value Reference Range Interpretation Comments MAGNESIUM (test code = MAG) 2.0 mg/dl 1.8-2.4 N LINE DRAWCBC W/AUTO [id number] 04:40:00 Test Item Value Reference Range Interpretation [...] 0.00 X10 3uL 0.00-0.01 N NRBC#) LINE [id number] 01:57:00 Test Item Value Reference Range Interpretation Comments GLUBED (test code = GLUBED) 119 mg/dL 70-110 H [id number] 23:29:00 Test Item Value Reference Range Interpretation Comments GLUBED (test code = GLUBED) 118 mg/dL 70-110 H [id number] 20:02:00 Test Item Value Reference Range Interpretation Comments GLUBED (test code = GLUBED) 129 mg/dL 70-110 H BASIC METABOLIC [id number] 10:20:00 Test Item Value Reference Range Interpretation [...] = CA) 8.8 mg/dl 8.0-10.5 N LINE [id number] 10:20:00 Test Item Value Reference Range Interpretation Comments MAGNESIUM (test code = MAG) 1.6 mg/dl 1.8-2.4 L LINE DRAWCBC W/AUTO [id number] 09:48:00 Test Item Value Reference Range Interpretation [...] 0.03 X10 3uL 0.00-0.01 H NRBC#) LINE [id number] 05:23:00 Test Item Value Reference Range Interpretation Comments GLUBED (test code = GLUBED) 121 mg/dL 70-110 H [id number] 00:40:00 Test Item Value Reference Range Interpretation Comments GLUBED (test code = GLUBED) 129 mg/dL 70-110 H [id number] 21:35:00 Test Item Value Reference Range Interpretation Comments GLUBED (test code = GLUBED) 148 mg/dL 70-110 H VANCOMYCIN [id number] 21:30:00 Test Item Value Reference Range Interpretation [...] DRAW 30-1-60 MIN PRIOR TO DOSEComments to Director Staffing: MAKE SURE BAG IS NOT [id number] 17:19:00 Test Item Value Reference Range Interpretation Comments GLUBED (test code = GLUBED) 154 mg/dL 70-110 H [id number] 15:37:00 Test Item Value Reference Range Interpretation Comments GLUBED (test code = GLUBED) 119 mg/dL 70-110 H [id number] 11:16:00 Test Item Value Reference Range Interpretation Comments GLUBED (test code = GLUBED) 102 mg/dL 70-110 N [id number] 07:06:00 Test Item Value Reference Range Interpretation Comments GLUBED (test code = GLUBED) 97 mg/dL 70-110 N [id number] 05:44:00 Test Item Value Reference Range Interpretation Comments GLUBED (test code = GLUBED) 103 mg/dL 70-110 N BASIC METABOLIC [id number] 07:13:00 Test Item Value Reference Range Interpretation [...] code = CA) 8.3 mg/dl 8.0-10.5 N [id number] 07:13:00 Test Item Value Reference Range Interpretation Comments LIPASE (test code = LIP) 360 Units/L 65.0-230.0 H ARTERIAL BLOOD [id number] 16:13:00 Test Item Value Reference Range Interpretation [...] N N ORMAL METHGB) <2.0POTENTIALLY TOXIC >20.0 PaO2/[id number] 16:13:00 Test Item Value Reference Range Interpretation Comments PaO2/FiO2 (test code = OSZ4FYO0) 422.60 mm/Hg ARTERIAL BLOOD [id number] 16:12:00 Test Item Value Reference Range Interpretation [...] N N ORMAL METHGB) <2.0POTENTIALLY TOXIC >20.0 PaO2/[id number] 16:12:00 Test Item Value Reference Range Interpretation Comments PaO2/FiO2 (test code = CCW5HPR5) mm/Hg CBC W/AUTO [id number] 11:07:00 Test Item Value Reference Range Interpretation [...] 0.00-0.01 N code = NRBC#) BASIC METABOLIC [id number] 06:22:00 Test Item Value Reference Range Interpretation [...] code = CA) 8.4 mg/dl 8.0-10.5 N [id number] 06:22:00 Test Item Value Reference Range Interpretation Comments LIPASE (test code = LIP) 322 Units/L 65.0-230.0 H CBC W/AUTO [id number] 05:53:00 Test Item Value Reference Range Interpretation [...] code = 0.00 X10 3uL 0.00-0.01 N [facility]#) - XR CHEST 1 [id number] 01:10:00 [facility] 1945 Sex: M FAX: Michael Holm MD [phone] [place]: St: ADM FAX: Jeffery Gann [phone] Name: ALTHEA TOVAR Formerly [facility] : 1945 Age/S: 75/M [address] [facility] Unit #: [id number] Loc: [address] Phys: [place] [address] Acct: [id number] Dis Date: Status: ADM IN PHONE #: [phone] Exam Date: 09/02/2020 0051 FAX #: [phone] Reason: NGT PLACEMENT EXAMS: CPT CODE: [id number] XR CHEST 1 V 57196 EXAMINATION: - XR CHEST 1 V LOCATION: H61 INDICATION/CLINICAL HISTORY: NGT PLACEMENT COMPARISON: Chest x-ray 09/01/2020. TECHNIQUE: AP view of the chest. FINDINGS: NG tube is again seen. The tip courses inferiorly out of the okrtm-la-dmsj into the distal stomach. Cardiac silhouette is normal in size. There are unchanged strandy bibasilar opacities, compatiblewith subsegmental atelectasis. No new airspace disease. No appreciable pneumothorax or pleural effusion. Right PICC and endotracheal tube are unchanged. IMPRESSION: 1. NG tube tip courses inferiorly out of the taabf-sg-kznr and is likely located in the distal stomach. 2. Unchanged bibasilar subsegmental atelectasis. at 0110 Reported and signed by: Stacy Gil CC: Michael Llamas MD; Enedina Cantrell MD Technologist: ESVIN PENA Trnscrd Date/Time/By: 09/02/2020 (0110) : By: [email or web address] PAGE 1 Signed Report FAX: Michael Holm MD [phone] [place]: St: ADM FAX: Jeffery Gann [phone] Name: ALTHEA TOVAR [facility] : 1945 Age/S: 75/M [address] [facility] Unit #: [id number] Loc: [address] Phys: [place] [address] Acct: [id number] Dis Date: Status: ADM IN PHONE #: [phone] Exam Date: 09/02/2020 0051 FAX #: [phone] Reason: NGT PLACEMENT EXAMS: CPT CODE: [id number] XR CHEST 1 V 51905 (Continued) Orig Print D/T: S: 09/02/2020 (0114) PAGE 2 Signed ReportRENAL FUNCTION [id number] 16:42:00 Test Item Value Reference Range Interpretation [...] code = PHOS) 1.9 mg/dl 2.5-4.9 L [id number] 16:42:00 Test Item Value Reference Range Interpretation Comments MAGNESIUM (test code = MAG) 1.9 mg/dl 1.8-2.4 N VANCOMYCIN [id number] 16:42:00 Test Item Value Reference Range Interpretation Comments VANCOMYCIN TROUGH 10.7 mcg/mL 10-20 N Other dise ase (test code = VANCT) associat ed reference ranges: 10 - 15 mcg/mL Cellulit is, urinary tract infection 15 - 20 mcg/mL Bacterem ia, infective endocarditis, osteomyelitis, meningitis, pneumonia, lizzy re skin/soft tissu e infection, spin al abscess Specimen comments: DRAW PRIOR AT 1600Comments to Director Staffing: DRAW AT 1600, DO NOT CANCEL- XR CHEST 1 [id number] 10:50:00 [facility] : 1945 Sex: M FAX: Barbara Lund MD [phone] [place]: St: ADM FAX: Jeffery Gann [phone] Name: ALTHEA TOVAR [facility] : 1945 Age/S: 75/M [address] [facility] Unit #: [id number]: [address] Phys: [place] [address] Acct: [id number] Dis Date: Status: ADM IN PHONE #: [phone] Exam Date: 09/01/2020 1039 FAX #: [phone] Reason: PICC PLACEMENT EXAMS: CPT CODE: [id number] XR CHEST 1 V 55969 Single View Chest. Location: S17 Clinical Indication: [...] signed by: Noe Olivarez M.D. CC: Barbara Chavira MD; Enedina Cantrell MD Technologist: RANDALL PATRICIA Trnhird Date/Time/By: 09/01/2020 (6444) : By: [email or web address] PAGE 1 Signed Report FAX: Barbara Lund MD [phone] [place]: St: ADM FAX: Jeffery Gann [phone] Name: ALTHEA TOVAR [facility] : 1945 Age/S: 75/M [address] [facility] Unit #: [id number] Loc: [address] Phys: [place] [address] Acct: [id number] Dis Date: Status: ADM IN PHONE #: [phone] Exam Date: 09/01/2020 1039 FAX #: [phone] Reason: PICC PLACEMENT EXAMS: CPT CODE: [id number] XR CHEST 1 V 80832 (Continued) Orig Print D/T: S: 09/01/2020 (9049) PAGE 2 Signed Report- XR CHEST 1 [id number] 07:56:00 [facility] : 1945 Sex: M FAX: Jeffery Gann [phone] [place]: St: ADM Name: ALTHEA TOVAR [facility] : 1945 Age/S: 75/M [address] [facility] Unit #: [id number] Loc: E.POF1 [place], [place]: [place] [address] Acct: [id number] Dis Date: Status: ADM IN PHONE #: [phone] Exam Date: 09/01/2020534 FAX #: [phone] Reason: NG TUBE PLACEMENT EXAMS: CPT CODE: [id number] XR CHEST 1 V 92199 EXAM: - XR CHEST 1 V Location code:C3 HISTORY: NG TUBE PLACEMENT COMPARISON: 08/31/2020FINDINGS: Single AP view of the chest is provided. Endotracheal tube is unchanged. Enteric tube tip projects about the body of the stomach with side hole below the GE junction. No pneumothorax is seen.There is no new consolidation. No additional interval change. IMPRESSION: 1. Enteric tube tip projects about the body of the stomach with side hole below the GE junction. at 0756 Reported and signed by: Daniel Wilks M.D. CC: Enedina Cantrell MD Technologist: DAILY HIDALGO; ESVIN PENA Trnscrd Date/Time/By: 09/01/2020 (0756) : By: [email or web address] PAGE 1 Signed Report FAX: Jeffery Gann [phone] [place]: St: ADM ------ Name: ALTHEA TOVAR [facility] : 1945 Age/S: 75/M [address] [facility] Unit #: [id number] Loc: E.POF1 [place], [place]: [place] [address] Acct:[id number] Dis Date: Status: ADM IN PHONE #: [phone] Exam Date: 09/01/2020534 FAX #: [phone] Reason: NG TUBE PLACEMENT EXAMS: CPT CODE: [id number] XR CHEST 1 V 89280 (Continued) Orig Print D/T: S: 09/01/2020 (0759) PAGE 2 Signed ReportCOMPREHENSIVE METABOLIC [id number] 06:08:00 Test Item Value Reference Range Interpretation [...] 60 Units/L 50.0-136.0 N code = ALKP) [id number] 06:08:00 Test Item Value Reference Range Interpretation Comments LIPASE (test code = LIP) 680 Units/L 65.0-230.0 H [id number] 06:08:00 Test Item Value Reference Range Interpretation Comments MAGNESIUM (test code = MAG) 2.1 mg/dl 1.8-2.4 N CBC W/AUTO [id number] 06:00:00 Test Item Value Reference Range Interpretation [...] X10 3uL 0.00-0.01 H NRBC#) RENAL FUNCTION [id number] 03:22:00 Test Item Value Reference Range Interpretation [...] code = PHOS) 0.7 mg/dl 2.5-4.9 LL [id number] 03:22:00 Test Item Value Reference Range Interpretation Comments MAGNESIUM (test code = MAG) 2.2 mg/dl 1.8-2.4 N UA RFLX MICR CULT IF [id number] 23:09:00 Test Item Value Reference Range Interpretation [...] Under 72 hoursUA RFLX MICR CULT IF [id number] 22:51:00 Test Item Value Reference Range Interpretation [...] Description: CATHETERCath Status: Under 72 hoursBASIC METABOLIC [id number] 20:55:00 Test Item Value Reference Range Interpretation [...] code = 8.9 mg/dl 8.0-10.5 N CA) [id number] 20:55:00 Test Item Value Reference Range Interpretation Comments MAGNESIUM (test code = MAG) 1.6 mg/dl 1.8-2.4 L [id number] 19:52:00 Test Item Value Reference Range Interpretation Comments GLUBED (test code = GLUBED) 158 mg/dL 70-110 H [id number] 19:52:00 Test Item Value Reference Range Interpretation Comments GLUBED (test code = GLUBED) 149 mg/dL 70-110 H BASIC METABOLIC [id number] 15:30:00 Test Item Value Reference Range Interpretation [...] 8.1 mg/dl 8.0-10.5 N CA) BASIC METABOLIC [id number] 15:29:00 Test Item Value Reference Range Interpretation [...] code = CA) 8.1 mg/dl 8.0-10.5 N [id number] 14:06:00 Test Item Value Reference Range Interpretation Comments GLUBED (test code = GLUBED) 143 mg/dL 70-110 H [id number] 14:05:00 Test Item Value Reference Range Interpretation Comments GLUBED (test code = GLUBED) 182 mg/dL 70-110 H [id number] 14:02:00 Test Item Value Reference Range Interpretation Comments GLUBED (test code = GLUBED) 138 mg/dL 70-110 H LACTIC ACID [id number] 12:16:00 Test Item Value Reference Range Interpretation Comments LACTIC ACID REPEAT (test code = 2.1 mmol/L 0.4-2.0 H LACTR) NURSE DRAW, COVID ER BED 1ARTERIAL BLOOD [id number] 12:08:00 Test Item Value Reference Range Interpretation [...] N N ORMAL METHGB) <2.0POTENTIALLY TOXIC >20.0 PaO2/[id number] 12:08:00 Test Item Value Reference Range Interpretation Comments PaO2/FiO2 (test code = SMQ5QJW1) 352.00 mm/Hg ARTERIAL BLOOD [id number] 12:07:00 Test Item Value Reference Range Interpretation [...] N N ORMAL METHGB) <2.0POTENTIALLY TOXIC >20.0 PaO2/[id number] 12:07:00 Test Item Value Reference Range Interpretation Comments PaO2/FiO2 (test code = [id number]) mm/Hg [id number] 11:12:00 Test Item Value Reference Range Interpretation Comments GLUBED (test code = GLUBED) 141 mg/dL 70-110 H BASIC METABOLIC [id number] 10:40:00 Test Item Value Reference Range Interpretation [...] code = CA) 7.5 mg/dl 8.0-10.5 L [id number] 09:47:00 Test Item Value Reference Range Interpretation Comments GLUBED (test code = GLUBED) 162 mg/dL 70-110 H [id number] 09:34:00 Test Item Value Reference Range Interpretation Comments GLUBED (test code = GLUBED) 191 mg/dL 70-110 H [id number] 09:34:00 Test Item Value Reference Range Interpretation Comments GLUBED (test code = GLUBED) 204 mg/dL 70-110 H - CT ABD PELVIS W/O [id number] 08:32:00 [facility] 1945 Sex: M FAX: Jeffery Gann [phone] [place]: St: ADM Name: ALTHEA TOVAR JR [facility] : 1945 Age/S: 75/M [address] Unit: [id number] Loc: [place], [place]: [place] [address] Acct: [id number] Dis Date: Status: ADM IN PHONE #: [phone] Exam Date: 08/31/2020527 FAX #: [phone] Reason: pancreatitis EXAMS: CPT CODE: [id number] CT ABD PELVIS W/O CONT 19339 Dictation location: U19. CT ABDOMEN AND PELVIS [...] one measuring 2.2 cm may also be m ildly complex. There are at least 2 hypodensities [...] appendix. PAGE 1 Signed Report (CONTINUED) FAX: Karla TamiaJeffery [phone] [place]: St: ADM Name: ALTHEA TOVAR [facility] : 1945 Age/S: 75/M [address] [facility] Unit: [id number] Loc: [place], [place] Phys: TamiaSaremynatanaelMD [address] Acct: [id number] Dis Date: Status: ADM IN PHONE #: [phone] Exam Date: 08/31/2020527 FAX #: [phone] Reason: pancreatitis EXAMS: CPT CODE: [id number] CT ABD PELVIS W/O CONT 12359 (Continued) Atherosclerotic calcifications affect the aorta and its branches. Right common femoral venous catheter extending into the iliac vein. Air is noted within the common femoral vein likely relatedto the catheter. Small fat-containing umbilical hernia. No [...] M.D. CC: Enedina Cantrell MD Technologist: JABARI Cabrales Dt/Tm: 08/31/2020 (0832) [email or web address] Orig Print D/T: S: 08/31/2020 (0835 PAGE 2Signed Report- XR CHEST 1 [id number] 08:23:00 [facility] RANCHOHORTENCIA ALTHEA KELLEY : 1945 Sex: M FAX: Michael Holm MD [phone] [place]: St: [facility] FAX: Jeffery Gann [phone] Name: ALTHEA TOVAR [facility] : 1945 Age/S: 75/M [address] [facility] Unit #: [id number]: [place]: [place] [address] Acct: [id number] Dis Date: Status: ADM IN PHONE #: [phone] Exam Date: 08/31/2020 0531 FAX #: [phone] Reason: respiratory failureEXAMS: CPT CODE: [id number] XR CHEST 1 V 60351 Dictation location: U19. CHEST, FRONTAL VIEW HISTORY:respiratory [...] MD Technologist: ESVIN PENA Trnscrd Date/Time/By: 08/31/2020 (822) : By: [email or web address] PAGE 1 Signed Report FAX: Michael Holm MD [phone] [place]: St: ADM FAX: Jeffery Gann [phone] Name: ALTHEA TOVAR [facility] : 1945 Age/S: 75/M [address] [facility] Unit #: [id number] Loc: [place], [place]: [place] [address] Acct: [id number] Dis Date: Status: ADM IN PHONE #: [phone] Exam Date: 08/31/2020530 FAX #: [phone] Reason: respiratory failure EXAMS: CPT CODE: [id number] XR CHEST 1 V 76905 (Continued) Orig Print D/T: S: 08/31/2020 (825) PAGE 2 Signed Report- CT C-SPINE W/O [id number] 08:18:00[facility] 1945 Sex: M FAX: Michael Holm MD [phone] [place]: St: [facility] FAX: Jeffery Gann [phone] Name: GUYALTHEA [facility] : 1945 Age/S: 75/M [address] [facility] Unit: [id number] Loc: [place], [place]: [place] [address] Acct: [id number] Dis Date: Status: ADM IN PHONE #: [phone] Exam Date: 08/31/2020527 FAX #: [phone] Reason: AMS EXAMS: CPT CODE:[id number] CT C-SPINE W/O CONT 19579 Dictation location: U19. CT CERVICAL SPINE WITHOUT CONTRAST; SAGITTAL AND CORONAL REFORMATTED VIEWS. HISTORY: AMS COMPARISON :None. TECHNIQUE: Axial CT images of thecervical spine were obtained with coronal and sagittal [...] Signed Report (CONTINUED) FAX: Michael Holm MD [phone] [place]: St: [facility] FAX: Jeffery Gann [phone] Name: ALTHEA TOVAR ALLIE [facility] : 1945 Age/S: 75/M [address] [facility] Unit: [id number] Loc: [place], [place]: [place] [address] Acct: [id number] Dis Date: Status: ADM IN PHONE #: [phone] Exam Date: 08/31/2020527 FAX #: [phone] Reason: AMS EXAMS: CPT CODE: [id number] CT C-SPINE W/O CONT 59806 (Continued) CC: Michael Llamas MD; Enedina Cantrell MD Technologist: JABARI Cabrales Dt/Tm: 08/31/2020 (817) [email or web address] Orig Print D/T: S: 08/31/2020 (820 PAGE 2 Signed Report- CT HEAD/BRAIN W/O [id number] 08:16:00 [facility] : 1945 Sex: M FAX: Michael Holm MD [phone] [place]: St: [facility] FAX: Jeffery Gann [phone] Name: ALTHEA TOVAR [facility] : 1945 Age/S: 75/M [address] [facility] Unit: [id number] Loc: [place], [place]: [place] [address] Acct: [id number] Dis Date: Status: ADM IN PHONE #: [phone] Exam Date: 08/31/2020527 FAX #: [phone] Reason: AMS EXAMS: CPT CODE:[id number] CT HEAD/BRAIN W/O CONT 40196 Dictation location: U19. CT HEAD WITHOUT CONTRAST. HISTORY: AMS COMPARISON: No comparison is available. TECHNIQUE: Axial CT images of the head were obtained with coronal and/or sagittal reformatted views. Automated exposure control, iterative reconstruction technique, and/or adjustment of mA and/or kV according to patient's size was utilized for radiation dosereduction. IV CONTRAST: None. FINDINGS: Mild amount of [...] infarct are noted. The calvarium and skull baseare intact. Right mastoid effusion. Mild thickening of the ethmoid sinuses. IMPRESSION: No evidenceof acute intracranial abnormality. Chronic microvascular ischemic changes and atrophy. at 0816 Reported and signed by: Bob Kohli M.D. PAGE 1 Signed Report (CONTINUED) FAX: Michael Holm MD [phone] [place]: EMSt: [facility] FAX: Jeffery Gann [phone] Name: GUYALTHEA ALLIE [facility] : 1945 Age/S: 75/M [address] [facility] Unit: [id number] Loc: [place], [place] Phys: Michael Llamas MD775[address] Acct: [id number] Dis Date: Status: ADM IN PHONE #: [phone] Exam Date: 08/31/2020527 FAX #: [phone] Reason: AMS EXAMS: CPT CODE: [id number] CT HEAD/BRAIN W/O CONT 02063 (Continued) CC: Michael Llamas MD; Enedina Cantrell MD Technologist: JABARI STREETER Trnscrd Dt/Tm: 08/31/2020(16) [email or web address] Orig Print D/T: S: 08/31/2020 (20 PAGE 2 Signed [id number] 06:20:00 Test Item Value Reference Range Interpretation Comments GLUBED (test code = GLUBED) 328 mg/dL 70-110 H COMPREHENSIVE METABOLIC [id number] 04:54:00 Test Item Value Reference Range Interpretation [...] = ALKP) NURSE DRAW, COVID, ER BED [id number] 04:54:00 Test Item Value Reference Range Interpretation Comments LIPASE (test code = LIP) 4842 Units/L 65.0-230.0 H NURSE DRAW, COVID, ER BED [id number] 04:49:00 Test Item Value Reference Range Interpretation Comments GLUBED (test code = GLUBED) 209 mg/dL 70-110 H [id number] 04:49:00 Test Item Value Reference Range Interpretation Comments GLUBED (test code = GLUBED) 198 mg/dL 70-110 H [id number] 04:49:00 Test Item Value Reference Range Interpretation Comments GLUBED (test code = GLUBED) 230 mg/dL 70-110 H [id number] 04:49:00 Test Item Value Reference Range Interpretation Comments GLUBED (test code = GLUBED) 204 mg/dL 70-110 H [id number] 04:49:00 Test Item Value Reference Range Interpretation Comments GLUBED (test code = GLUBED) 243 mg/dL 70-110 H [id number] 04:49:00 Test Item Value Reference Range Interpretation Comments GLUBED (test code = GLUBED) 255 mg/dL 70-110 H [id number] 04:49:00 Test Item Value Reference Range Interpretation Comments GLUBED (test code = GLUBED) 263 mg/dL 70-110 H COMPREHENSIVE METABOLIC [id number] 04:45:00 Test Item Value Reference Range Interpretation [...] 50.0-136.0 N code = ALKP) NURSE DRAW, [facility], ER BED [id number] 04:45:00 Test Item Value Reference Range Interpretation Comments LIPASE (test code = LIP) Units/L 65.0-230.0 NURSE DRAW, [facility], ER BED [id number] 04:41:00 Test Item Value Reference Range Interpretation Comments HGBA1C% (test code = HGBA1C%) 7.4 %A1C 4.8-6.0 H ESTIMATED AVERAGE GLUCOSE (test 166 MG/DL code = EAG) NURSE DRAW, [facility] 1CBC W/AUTO [id number] 04:29:00 Test Item Value Reference Range Interpretation [...] X10 3uL 0.00-0.01 H NRBC#) NURSE DRAW, [facility] [id number] 03:05:00 Test Item Value Reference Range Interpretation Comments MAGNESIUM (test code = MAG) 2.0 mg/dl 1.8-2.4 N BASIC METABOLIC [id number] 02:23:00 Test Item Value Reference Range Interpretation [...] N NURSE DRAW, COVID ER BED 1LACTIC [id number] 23:51:00 Test Item Value Reference Range Interpretation Comments LACTIC ACID (test code = LACT) 2.5 MMOL/L 0.4-2.0 H BASIC METABOLIC [id number] 23:40:00 Test Item Value Reference Range Interpretation [...] = CA) 8.4 mg/dl 8.0-10.5 N ACETONE [id number] 22:36:00 Test Item Value Reference Range Interpretation Comments ACETONE BLOOD (test code = ACETB) MODERATE NEGATIVE [id number] 21:54:00 Test Item Value Reference Range Interpretation Comments GLUBED (test code = GLUBED) 411 mg/dL 70-110 H LACTIC [id number] 21:06:00 Test Item Value Reference Range Interpretation Comments LACTIC ACID (test code = LACT) 1.8 MMOL/L 0.4-2.0 N Coronavirus 2019 nCoV [id number] 21:01:00 Test Item Value Reference Range Interpretation Comments Coronavirus 2019 Negative NEGATIVE Negative re sults should be nCoV Bedside (test treated a s presumptive and code = ifinconsistent with [id number]) clinical signs and symptoms, or ne cessaryfor patient managem ent, should be tested with an alternativemole cular assay. Negative result s do not preclude HKDM-CrH-5lpetn tion and should not be u sed as the sole basis forp atient management deci sions. Negative result s should beconsidered in the context of a patient's recent exposures,histo ry, presence of clinical sig ns and symptoms consis tentwith COVID-19. RENAL FUNCTION [id number] 20:59:00 Test Item Value Reference Range Interpretation [...] gap less than or equal toComments to Director Staffing: 12 mEq/L, then every [id number] 20:59:00 Test Item Value Reference Range Interpretation Comments MAGNESIUM (test code = MAG) 2.2 mg/dl 1.8-2.4 N Specimen comments: Every 6 hours until anion gap less than or equal toComments to Director Staffing: 12 mEq/L, then every morningARTERIAL BLOOD [id number] 20:47:00 Test Item Value Reference Range Interpretation Comments ARTERIAL BLOOD GAS PH 6.970 7.350-7.450 LL Result s called (test code = PHA) to and nenita d back by [facility] :47 - 08/30/2020; by S ARTERIAL BLOOD GAS PCO2 46.7 mmHg 35.0-45.0 [...] NOR MAL = METHGB) <2.0POTENTIALLY TOXIC >20.0 PaO2/[id number] 20:47:00 Test Item Value Reference Range Interpretation Comments PaO2/FiO2 (test code = [id number]) mm/Hg ARTERIAL BLOOD [id number] 20:47:00 Test Item Value Reference Range Interpretation Comments ARTERIAL BLOOD GAS PH 6.970 7.350-7.450 LL Result s called (test code = PHA) to and nenita d back by [facility] - 08/30/2020; by [facility] ARTERIAL BLOOD GAS PCO2 46.7 [...] NOR MAL = METHGB) <2.0POTENTIALLY TOXIC >20.0 PaO2/[id number] 20:47:00 Test Item Value Reference Range Interpretation Comments PaO2/FiO2 (test code = PMJ5NNT3) 351.00 mm/Hg CBC W/AUTO [id number] 20:44:00 Test Item Value Reference Range Interpretation [...] 0.05 X10 3uL 0.00-0.01 H NRBC#) - CHEST 1 [id number] 20:36:00 [facility] ALLIE : 1945 Sex: M FAX: Flavio [place] MD [phone] [place]: St: REG Name: ALTHEA TOVAR [facility] : 1945 Age/S: 75/M [address] [facility] [address] Unit #: [id number] Loc: [place], [place]: [place] [address] Acct: [id number] Dis Date: Status: REG ER PHONE #: [phone] Exam Date: 2032 FAX #: [phone] Reason: intubated EXAMS: CPT CODE: [id number] XR CHEST 1 V 65240 EXAM: CHEST ONE VIEW INDICATION: intubated LOCATION: [...] 1 Signed Report FAX: Flavio [place] MD [phone] [place]: St: REG -- Name: ALTHEA TOVAR [facility] : 1945 Age/S: 75/M [address] Unit #: [id number] Loc: [place], [place]: [place] [address] Acct: [id number] Dis Date: Status: REG ER PHONE #: [phone] Exam Date: 08/30/20202032 FAX #: [phone] Reason: intubated EXAMS: CPT CODE: [id number] XR CHEST 1 V 61537 () Orig Print D/T: S: 08/30/2020 (2039) PAGE 2 Signed ReportCT, CTA AAA, W/ CHARLEE.EXT.RUNOFF 2020-08-12 16:25:00 [facility] 1945 Sex: MAddendum BeginsREPORT STATUS:A Addendum: I agree with the previously described non vascular findings. Generalized fatty infiltration of the liver is apparent. There are numerous small bilateral renal cysts evident. The wall of the urinary bladder is diffusely thickened. The urinarybladder is not distended. Chronic degenerative changes are present in the lower lumbar spine. Chronic degenerative arthritis of the right hip. Signed: Kenny Arvizu MDReport Verified Date/Time: 08/12/2020 16:25:56 Reading Location: [facility] Radiology Reading RoomAddendum EndsFINAL REPORT CTA AAA with bilateral external runoff - 08/10/2020 8:39 AM. Comparison: None available History: 75 years old Male with acute limb ischemia and suspected severe peripheral vascular disease. Evaluatedfor further treatment options. Indication: Clinically suspected peripheral vascular disease. This study is performed in an attempt to avoid an invasive procedure. Technique: Multi-detector CT technology was employed ([place] CT 660 scanner). Spiral acquisition before and during intravenous contrast administration. Images were obtained before and during the dynamic passage of intravenous contrast material. Multi-planar 3-D volume- rendering reconstruction was performed using an independent workstation i nteractively by the interpreting physician as well as [...] as dissection, intramural hematoma, or contained rupture. Oil Recovery Operator dimensions of the abdominal aorta are as [...] artery has severe protruding calcification involving the distalsegment before the bifurcation leading to at least moderate luminal stenosis with a minimal luminal diameter measuring 2.8 x 3.3 mm. The left common iliac artery has mild to moderate calcification witha minimal luminal diameter measuring 6.1 x 7.6 [...] near circumferential calcification throughout the course, and ofthe luminal diameter is limited by the blooming [...] with at least moderate to severe luminal stenosiswith another similar protruding calcification at its distal segment with again a moderate luminal stenosis noted. The right popliteal artery is severely calcified with moderate to severe luminal stenosis at its mid segment. The distal segment of the popliteal artery is normal caliber with minimal calci fication and no evidence of luminal stenosis. The right peroneal trunk is widely patent. The right anterior tibial artery has diffuse calcification though widely patent and continues at its distal segment has normal caliber dorsalis pedis artery. The right peroneal artery is normal size with diffuse luminal ligamentous and terminates just above the ankle. The right posterior tibial artery has diffusecalcific atherosclerotic changes however at its distal segment [...] common femoral artery has severe protruding calcification involvingthe distal segment before the bifurcation leading to [...] luminal stenosis at its mid segment. An addendumwill be dictated regarding the non-vascular findings by the University Professor Radiologists. Signed: Buck Sears Verified Date/Time: 08/10/2020 14:41:04 Reading Location: [place] [address] CT Reading Room [id number] 12:09:00 Test Item Value Reference Range Interpretation Comments POC-CREATININE 0.8 mg/dL 0.6-1.3 : TESTED AT B [facility] ([facility]) (test [address] [facility] code = 1859) [place], [address]: Sales Service Manager/Techni sandip ID = [id number] for Aretha Diallo POC-EGFR ([facility]) 94 mL/min/1.73M2 (test code = 1860) PLATELET AGGREGATION: FUNCTION [id number] 14:06:00 Test Item Value Reference Range Interpretation Comments [id number] Daily Pina MD ([facility]) (test code = (electronic signature) 2622) PLATELET [...] may be falsely low with platelet counts<75,000/cu mm.Sales Service Manager ID- [id number]-GLUCOSE [id number] 08:14:00 Test Item Value Reference Range Interpretation Comments POC-GLUCOSE METER 148 mg/dL 70-110 H : TESTED A T [facility] [address] (BEAKER) (test code = [place], 1538) [address]: Sales Service Manager/Techni sandip ID = [id number] for CHAVO MAHMOOD [id number] 06:48:00 Test Item Value Reference Range Interpretation Comments PHOSPHORUS (BEAKER) (test code = 2.5 mg/dL 2.3-4.7 604) Sales Service Manager ID - PIAYA [id number] 06:48:00 Test Item Value Reference Range Interpretation Comments MAGNESIUM (BEAKER) (test code = 2.4 mg/dL 1.6-2.6 627) Sales Service Manager ID - PIAYA LBASIC METABOLIC [id number] 06:48:00 Test Item Value Reference Range Interpretation [...] S NOT APPLICABLE FOR DIALYSIS PATIEN TS. Sales Service Manager ID - PIAYA LCBC W/PLT COUNT & AUTO [id number] 06:11:00 Test Item Value Reference Range Interpretation [...] PERCENT (BEAKER) (test code = 2801) POCT-GLUCOSE [id number] 21:40:00 Test Item Value Reference Range Interpretation Comments POC-GLUCOSE METER 168 mg/dL 70-110 H : TESTED A T [facility] [address] (JUSTINE) (test code = [facility] Jania [facility], 1538) [address]: Sales Service Manager/Techni sandip ID = [id number] for MARCE MIRANDA POCT-GLUCOSE [id number] 17:04:00 Test Item Value Reference Range Interpretation Comments POC-GLUCOSE METER 159 mg/dL 70-110 H : Notified RN/MD: (JUSTINE) (test code = TESTED AT [place] [address] 1538) [facility], [address]: Sales Service Manager/Techni sandip ID = [id number] for ROMINA RODRIGUEZ POCT-GLUCOSE [id number] 11:29:00 Test Item Value Reference Range Interpretation Comments POC-GLUCOSE METER 151 mg/dL 70-110 H : Notified RN/MD: (JUSTINE) (test code = TESTED AT [place] [address] 1538) [facility], [address]: Sales Service Manager/Techni sandip ID = [id number] for ROMINA RODRIGUEZ POCT-GLUCOSE [id number] 10:17:00 Test Item Value Reference Range Interpretation Comments POC-GLUCOSE METER 167 mg/dL 70-110 H : Notified RN/MD: (JUSTINE) (test code = TESTED AT [place] [address] 1538) [facility], [address]: Sales Service Manager/Techni sandip ID = [id number] for ROMINA RODRIGUEZ [id number] 08:36:00 Test Item Value Reference Range Interpretation Comments PHOSPHORUS (JUSTINE) (test code = 2.4 mg/dL 2.3-4.7 604) Sales Service Manager ID - SANDY [id number] 08:36:00 Test Item Value Reference Range Interpretation Comments MAGNESIUM (BEAKER) (test code = 2.3 mg/dL 1.6-2.6 627) Sales Service Manager ID - SANDY FBASIC METABOLIC [id number] 08:36:00 Test Item Value Reference Range Interpretation [...] S NOT APPLICABLE FOR DIALYSIS PATIEN TS. Sales Service Manager ID - SANDY FPOCT-GLUCOSE [id number] 08:10:00 Test Item Value Reference Range Interpretation Comments POC-GLUCOSE METER 166 mg/dL 70-110 H : TESTED A T [facility] [address] (BEAKER) (test code = [facility], 1538) [address]: Sales Service Manager/Techni sandip ID = [id number] for ROMINA RODRIGUEZ HEMOGLOBIN [id number] 08:09:00 Test Item Value Reference Range Interpretation Comments HEMOGLOBIN A1C (BEAKER) (test code = 8.8 % 4.3-6.1 H 368) POCT-GLUCOSE [id number] 07:42:00 Test Item Value Reference Range Interpretation Comments POC-GLUCOSE METER 181 mg/dL 70-110 H : TESTED A T [facility] [address] (BEAKER) (test code = [facility], 1538) [address]: Sales Service Manager/Techni sandip ID = [id number] for ROMINA RODRIGUEZ RAD, CHEST, 1 VIEW, NON [id number] 07:27:00Reason for exam:->s/p PCI, impella removalShould this be performed at the bedside?->YesFINAL REPORT CLINICAL HISTORY: s/p PCI, impella removal TECHNIQUE: 1 view of the chest. COMPARISON: 12/16/2019 IMPRESSION: There are no focal infiltrates or effusions. The cardiomediastinal silhouette is magnified by technique. The osseous structures appear intact. There is mild elevation of the right hemidiaphragm. Signed: Dorothy Nur MDReport Verified Date/Time: 02/23/2020 07:27:25 Reading Location: [facility] Radiology Reading Room POCT-GLUCOSE [id number] 06:27:00 Test Item Value Reference Range Interpretation Comments POC-GLUCOSE METER 150 mg/dL 70-110 H : TESTED A T [facility] [address] (BEAKER) (test code = BRENDA Dykes [facility], 1538) [address]: Sales Service Manager/Techni sandip ID = [id number] for NORM Dykes SYLVIA POCT-GLUCOSE [id number] 05:06:00 Test Item Value Reference Range Interpretation Comments POC-GLUCOSE METER 136 mg/dL 70-110 H : TESTED A T [facility] [address] (BEAKER) (test code = BRENDA Dykes [facility], 1538) [address]: Sales Service Manager/Techni sandip ID = [id number] for NORM Dykes SYLVIA LACTIC ACID, [id number] 04:40:00 Test Item Value Reference Range Interpretation Comments LACTATE BLOOD ARTERIAL (2) 1.2 mmol/L 0.5-2.2 (BEAKER) (test code = 2874) Sales Service Manager ID - ARLENE GORE, [id number] 04:27:00 Test Item Value Reference Range Interpretation Comments KETONES, BLOOD (BEAKER) (test code 0.8 mmol/L <0.4 H = 1103) POCT-GLUCOSE [id number] 04:19:00 Test Item Value Reference Range Interpretation Comments POC-GLUCOSE METER 170 mg/dL 70-110 H : TESTED A T [facility] 67[address] (BEAKER) (test code = BRENDA Dykes [facility], 1538) [id number]: Sales Service Manager/Techni sandip ID = [id number] for SYLVIA ELLIS LACTATE DEHYDROGENASE (LDH)2020-02-23 04:06:00 Test Item Value Reference Range Interpretation Comments LACTATE DEHYDROGENASE (BEAKER) (test 245 U/L 125-220 H code = 635) Sales Service Manager ID - JIMENEZ [id number] 03:59:00 Test Item Value Reference Range Interpretation Comments MAGNESIUM (BEAKER) (test code = 2.3 mg/dL 1.6-2.6 627) Sales Service Manager ID - ARLENE WBASIC METABOLIC [id number] 03:59:00 Test Item Value Reference Range Interpretation [...] S NOT APPLICABLE FOR DIALYSIS PATIEN TS. Sales Service Manager ID - ARLENE WLACTATE DEHYDROGENASE (LDH)2020-02-23 03:59:00 Test Item Value Reference Range Interpretation Comments LACTATE DEHYDROGENASE (BEAKER) (test 201 U/L 125-220 code = 635) Sales Service Manager ID - ARLENE WBLOOD GAS, [id number] 03:46:00 Test Item Value Reference Range Interpretation [...] 0-0 (BEAKER) (test code = 413) POCT-GLUCOSE [id number] 03:30:00 Test Item Value Reference Range Interpretation Comments POC-GLUCOSE METER 174 mg/dL 70-110 H : TESTED A T [facility] 6720 (BEAKER) (test code = [place], 1538) [address]: Sales Service Manager/Techni sandip ID = [id number] for SYLVIA ELLIS POCT-GLUCOSE [id number] 02:16:00 Test Item Value Reference Range Interpretation Comments POC-GLUCOSE METER 153 mg/dL 70-110 H : TESTED A T [facility] 6720 (BEAKER) (test code = BRENDA Dykse [facility], 1538) 12[address]: Sales Service Manager/Techni sandip ID = [id number] for SYLVIA ELLIS POCT-GLUCOSE [id number] 01:23:00 Test Item Value Reference Range Interpretation Comments POC-GLUCOSE METER 145 mg/dL 70-110 H : TESTED A T [facility] 6720 (BEAKER) (test code = BRENDA Dykes [facility], 1538) [address]: Sales Service Manager/Techni sandip ID = [id number] for SYLVIA ELLIS [id number] 00:59:00 Test Item Value Reference Range Interpretation Comments PHOSPHORUS (BEAKER) (test code = 2.3 mg/dL 2.3-4.7 604) Sales Service Manager ID - [id number] 00:59:00 Test Item Value Reference Range Interpretation Comments MAGNESIUM (BEAKER) (test code = 2.5 mg/dL 1.6-2.6 627) Sales Service Manager ID - DBBASIC METABOLIC [id number] 00:59:00 Test Item Value Reference Range Interpretation [...] S NOT APPLICABLE FOR DIALYSIS PATIEN TS. Sales Service Manager ID - DBLACTIC ACID, [id number] 00:55:00 Test Item Value Reference Range Interpretation Comments LACTATE BLOOD VENOUS (2) (BEAKER) 1.65 mmol/L 0.50-2.20 (test code = 2872) Sales Service Manager ID - DBPOCT-GLUCOSE [id number] 00:23:00 Test Item Value Reference Range Interpretation Comments POC-GLUCOSE METER 154 mg/dL 70-110 H : TESTED A T [facility] 6720 (BEAKER) (test code = [place], 1538) [address]: Sales Service Manager/Techni sandip ID = [id number] for NORM Dykes SYLVIA BASIC METABOLIC [id number] 21:52:00 Test Item Value Reference Range Interpretation [...] S NOT APPLICABLE FOR DIALYSIS PATIEN TS. Sales Service Manager ID - DBLACTIC ACID, [id number] 21:49:00 Test Item Value Reference Range Interpretation Comments LACTATE BLOOD ARTERIAL (2) 2.9 mmol/L 0.5-2.2 H (BEAKER) (test code = 2874) Sales Service Manager ID - DBKETONE, [id number] 21:41:00 Test Item Value Reference Range Interpretation Comments KETONES, BLOOD (BEAKER) (test code 1.6 mmol/L <0.4 H = 1103) BLOOD GAS, [id number] 21:33:00 Test Item Value Reference Range Interpretation [...] (test code = 1819) 36.0 % POCT-GLUCOSE [id number] 21:11:00 Test Item Value Reference Range Interpretation Comments POC-GLUCOSE METER 232 mg/dL 70-110 H : TESTED A T [facility] 6720 (BEAKER) (test code = [facility], 1538) 288[address]: Sales Service Manager/Techni sandip ID = [id number] for [place] POCT-GLUCOSE [id number] 19:19:00 Test Item Value Reference Range Interpretation Comments POC-GLUCOSE METER 276 mg/dL 70-110 H : TESTED A T [facility] 6720 (BEAKER) (test code = [facility], 1538) 685[address]: Sales Service Manager/Techni sandip ID = [id number] for [place] CREATINE KINASE (CK)2020-02-22 19:03:00 Test Item Value Reference Range Interpretation Comments CREATINE KINASE TOTAL (BEAKER) (test 152 U/L 29-200 code = 380) Sales Service Manager ID - DBPOCT-GLUCOSE [id number] 18:43:00 Test Item Value Reference Range Interpretation Comments POC-GLUCOSE METER 311 mg/dL 70-110 H : TESTED A T [facility] 6720 (BEAKER) (test code = [facility], 1538) 02487: Sales Service Manager/Techni sandip ID = [id number] for [place], FLAQUITA HELLE LACTIC ACID, [id number] 18:30:00 Test Item Value Reference Range Interpretation Comments LACTATE BLOOD ARTERIAL (2) 4.7 mmol/L 0.5-2.2 HH (BEAKER) (test code = 2874) Sales Service Manager ID - [id number] 18:28:00 Test Item Value Reference Range Interpretation Comments PHOSPHORUS (BEAKER) (test code = 4.4 mg/dL 2.3-4.7 604) Sales Service Manager ID - [id number] 18:28:00 Test Item Value Reference Range Interpretation Comments MAGNESIUM (BEAKER) (test code = 1.9 mg/dL 1.6-2.6 627) Sales Service Manager ID - DBBASIC METABOLIC [id number] 18:28:00 Test Item Value Reference Range Interpretation [...] S NOT APPLICABLE FOR DIALYSIS PATIEN TS. Sales Service Manager ID - DBGLUCOSE-STAT [id number] 18:07:00 Test Item Value Reference Range Interpretation Comments GLUCOSE RANDOM (BEAKER) (test code 292 mg/dL 70-110 H = 652) BASIC METABOLIC [id number] 15:15:00 Test Item Value Reference Range Interpretation [...] S NOT APPLICABLE FOR DIALYSIS PATIEN TS. Sales Service Manager ID - DBPROTHROMBIN TIME/[id number] 15:12:00 Test Item Value Reference Range Interpretation [...] for patients wiht mechanical heart valves.LACTIC ACID, [id number] 15:12:00 Test Item Value Reference Range Interpretation Comments LACTATE BLOOD 3.6 mmol/L 0.5-2.2 H Specimen sligh tly ARTERIAL (2) (BEAKER) hemoly zed (test code = 2874) Sales Service Manager ID - [id number] 15:12:00 Test Item Value Reference Range Interpretation Comments PARTIAL THROMBOPLASTIN TIME 30.1 seconds 22.5-36.0 (BEAKER) (test code = 760) CBC W/PLT COUNT & AUTO [id number] 15:09:00 Test Item Value Reference Range Interpretation [...] PERCENT (BEAKER) (test code = 2801) PLATELET [id number] 15:01:00 Test Item Value Reference Range Interpretation Comments PLATELET COUNT (BEAKER) (test 154 K/CU MM 150-450 code = 756) [id number] 13:51:00 Test Item Value Reference Range Interpretation Comments ACTIVATED CLOTTING TIME 125 sec : 74 -137 seconds, (BEAKER) (test code = Baseli ne: TESTED AT 441) [facility] [address], [address]: Sales Service Manager/Techni sandip ID = [id number] for [place] STRO, SILVERIO GLUCOSE-STAT [id number] 13:24:00 Test Item Value Reference Range Interpretation Comments GLUCOSE RANDOM (BEAKER) (test code 185 mg/dL 70-110 H = 652) HGB/HCT (H&H) - STAT [id number] 13:24:00 Test Item Value Reference Range Interpretation Comments HEMOGLOBIN (BEAKER) (test code = 10.6 g/dL 13.0-16.8 L 410) HEMATOCRIT (BEAKER) (test code = 31.0 % 40.0-50.0 L 411) SODIUM NA-STAT [id number] 13:23:00 Test Item Value Reference Range Interpretation Comments SODIUM (BEAKER) (test code = 381) 136 meq/L 136-145 POTASSIUM-STAT [id number] 13:23:00 Test Item Value Reference Range Interpretation Comments POTASSIUM (BEAKER) (test code = 3.8 meq/L 3.6-5.5 379) BLOOD GAS, [id number] 13:23:00 Test Item Value Reference Range Interpretation [...] (BEAKER) (test code = 1819) 50.0 % [id number] 12:04:00 Test Item Value Reference Range Interpretation Comments ACTIVATED CLOTTING TIME 296 sec : 74 -137 seconds, (BEAKER) (test code = Baseli ne: TESTED AT 441) [place] [address]: Sales Service Manager/Techni sandip ID = [id number] for [place] LLIAMS, CHAGO [id number] 11:48:00 Test Item Value Reference Range Interpretation Comments ACTIVATED CLOTTING TIME 257 sec : 74 -137 seconds, (BEAKER) (test code = Baseli ne: TESTED AT 441) [place] [address]: Sales Service Manager/Techni sandip ID = [id number] for [place] LLIAMS, CHAGO [id number] 11:21:00 Test Item Value Reference Range Interpretation Comments ACTIVATED CLOTTING TIME 307 sec : 74 -137 seconds, (BEAKER) (test code = Baseli ne: TESTED AT 441) [place] [address]: Sales Service Manager/Techni sandip ID = [id number] for RE DIC, BETY [id number] 10:34:00 Test Item Value Reference Range Interpretation Comments ACTIVATED CLOTTING TIME 296 sec : 74 -137 seconds, (BEAKER) (test code = Baseli ne: TESTED AT 441) [place] [address]: Sales Service Manager/Techni sandip ID = [id number] for RE DIC, BETY [id number] 09:58:00 Test Item Value Reference Range Interpretation Comments ACTIVATED CLOTTING TIME 290 sec : 74 -137 seconds, (BEAKER) (test code = Baseli ne: TESTED AT 441) [place] [address]: Sales Service Manager/Techni sandip ID = [id number] for RE DIC, BETY [id number] 09:36:00 Test Item Value Reference Range Interpretation Comments ACTIVATED CLOTTING TIME 257 sec : 74 -137 seconds, (BEAKER) (test code = Baseli ne: TESTED AT 441) [place] [address]: Sales Service Manager/Techni sandip ID = [id number] for BETY GONZALEZ SARS-COV2/RT-PCR ([facility])2020-02-21 19:54:00 Test Item Value Reference Range Interpretation Comments SARS-COV2/RT-PCR (test Not Detected Not Detected, Negative code = 5007297) SARS-COV-2 PERFORMING LAB [facility] (test code = 7533384) Negative results do not preclude SARS-CoV-2 infection [...] of the Act.Fact Sheet for Healthcare Pro viders:https://www.MedTest DX.Supportie/Documents/Xpert%20Xpress%20SARS%20CoV-2/Fact%20Sh eets/3023802%59ROZN-VCA-6%20HEALTHCARE%20PROVIDERS%20FACT%20SHEET.pdfFact Sheet for Healthcare Patients:https://www.Farehelper id.Supportie/Documents/Xpert%20Xpress%20SARS%20CoV-2/Fact%20Sheets/3023801%20SARS-COV -2%20PATIENT%20FACT%20SHEET.pdfPerforming Laboratory:[facility], [place] [id number] 19:07:00 Test Item Value Reference Range Interpretation Comments MAGNESIUM (BEAKER) (test code = 2.4 mg/dL 1.6-2.6 627) Sales Service Manager ID - DBBASIC METABOLIC [id number] 19:07:00 Test Item Value Reference Range Interpretation [...] S NOT APPLICABLE FOR DIALYSIS PATIEN TS. Sales Service Manager ID - DBCBC W/PLT COUNT & AUTO [id number] 18:56:00 Test Item Value Reference Range Interpretation [...] 0-1 PERCENT (BEAKER) (test code = 2801) [id number] 18:54:00 Test Item Value Reference Range Interpretation [...] 2.5-3.5 for patients wiht mechanical heart valves.POCT-GLUCOSE [id number] 08:09:00 Test Item Value Reference Range Interpretation Comments POC-GLUCOSE METER 221 mg/dL 70-110 H : Notified RN/MD: TESTED (BEAKER) (test code AT [facility] [address] = 1538) [facility], 770 30: Sales Service Manager/Techni sandip ID = [id number] for CECILE DANIEL TROPONIN [id number] 04:32:00 Test Item Value Reference Range Interpretation Comments TROPONIN I (BEAKER) (test code = 0.34 ng/mL 0.00-0.03 [facility]) Troponin I (TnI) levels must [...] failure, acidosis, acute neurological disease, and persistent tachyarrhythmia.Sales Service Manager ID - PIAYA LBASIC METABOLIC [id number] 04:16:00 Test Item Value Reference Range Interpretation [...] S NOT APPLICABLE FOR DIALYSIS PATIEN TS. Sales Service Manager ID - PIAYA LCBC (HEMOGRAM ONLY)2019-12-17 [...] 0-0 (BEAKER) (test code = 413) TROPONIN [id number] 22:30:00 Test Item Value Reference Range Interpretation [...] failure, acidosis, acute neurological disease, and persistent tachyarrhythmia.Sales Service Manager ID - BSPOCT-GLUCOSE METER 2019-12-16 21:26:00 Test Item Value Reference Range Interpretation Comments POC-GLUCOSE METER 345 mg/dL 70-110 H : TESTED A T [facility] 6720 (BEAKER) (test code = BR[place], 1538) [address]: Sales Service Manager/Techni sandip ID = [id number] for [place] TROPONIN [id number] 16:44:00 Test Item Value Reference Range Interpretation [...] failure, acidosis, acute neurological disease, and persistent tachyarrhythmia.Sales Service Manager ID - BSPLATELET AGGREGATION: FUNCTION [id number] 16:28:00 Test Item Value Reference Range Interpretation Comments [id number] Daily Pina, (BEAKER) (test code = (electronic 6161) signature) PLATELET COUNT AGG 198 K/CU MM 150-450 (BEAKER) (test code = 2656) PLATELET RICH 285 k/cu mm 200-300 PLASMA(BEAKER) (test code = 2134) PLATELET FUNCTION SCREEN Decreased aggregation INTERPRETATION (BEAKER) with ADP which (test code = 4655) indicates platelet dysfunction that may be due to medication effect, uremia, or other platelet function disorders. Clinical correlation is required. Platelet Function Screen results may be falsely low with platelet counts<75,000/cu mm.Sales Service Manager ID- [id number] 16:22:00 Test Item Value Reference Range Interpretation Comments PARTIAL THROMBOPLASTIN TIME 36.5 seconds 22.5-36.0 H (BEAKER) (test code = 760) 6 hours after starting heparin infusion and as indicated per sliding scalePOCT- GLUCOSE [id number] 12:29:00 Test Item Value Reference Range Interpretation Comments POC-GLUCOSE METER 278 mg/dL 70-110 H : TESTED A T [facility] 6720 (BEAKER) (test code = [place], 1538) [address]: Sales Service Manager/Techni sandip ID = [id number] for CIARAN MENENDEZ TROPONIN [id number] 11:03:00 Test Item Value Reference Range Interpretation Comments TROPONIN I (BEAKER) (test code = 0.39 ng/mL 0.00-0.03 HH 397) Troponin I (TnI) [...] failure, acidosis, acute neurological disease, and persistent tachyarrhythmia.Sales Service Manager ID - NEELAM [id number] 10:50:00 Test Item Value Reference Range Interpretation Comments PARTIAL THROMBOPLASTIN TIME 29.5 seconds 22.5-36.0 (BEAKER) (test code = 760) Prior to initiating heparinRAD, CHEST, 1 VIEW, NON [id number] 10:00:00Reason for exam:->Short of breathShould this be performed at the bedside?->Yes FINAL REPORT INDICATION: Short of breath COMPARISON: December 15, 2019 TECHNIQUE: Single frontal view of the chest. FINDINGS: Lungs and pleura: Mild interstitial edema. Trace right effusion. Heart and mediastinum: Normal heart size. Unremarkable mediastinal contours.Osseous structures: No acute abnormality.Other: None. . Signed: Myrna Lange Verified Date/Time: 12/16/201910:00:26 Reading Location: [facility] Radiology Reading Room GLOBIN [id number] 09:56:00 Test Item Value Reference Range Interpretation Comments HEMOGLOBIN A1C (BEAKER) (test code = 9.5 % 4.3-6.1 H 368) POCT-GLUCOSE [id number] 08:11:00 Test Item Value Reference Range Interpretation Comments POC-GLUCOSE METER 140 mg/dL 70-110 H : TESTED A T [facility] 6720 (BEAKER) (test code = [place], 1538) [address]: Sales Service Manager/Techni sandip ID = [id number] for CIARAN MENENDEZ LIPID [id number] 05:11:00 Test Item Value Reference Range Interpretation [...] Borderline 130-159 High 160-189 Very High >=190 Sales Service Manager ID - JIMENEZ MBASIC METABOLIC [id number] 05:11:00 Test Item Value Reference Range Interpretation [...] S NOT APPLICABLE FOR DIALYSIS PATIEN TS. Sales Service Manager ID - JIMENEZ MPOCT-GLUCOSE [id number] 21:46:00 Test Item Value Reference Range Interpretation Comments POC-GLUCOSE METER 177 mg/dL 70-110 H : TESTED A T [facility] 6720 (BEAKER) (test code = [place], 1538) [address]: Sales Service Manager/Techni sandip ID = [id number] for Merced Ambrosio COMPREHENSIVE METABOLIC [id number] 18:50:00 Test Item Value Reference Range Interpretation [...] S NOT APPLICABLE FOR DIALYSIS PATIEN TS. Sales Service Manager ID - BSPROTHROMBIN TIME/[id number] 18:42:00 Test Item Value Reference Range Interpretation [...] is 2.5-3.5 for patients wiht mechanical heart valves.[id number] 18:42:00 Test Item Value Reference Range Interpretation Comments PARTIAL THROMBOPLASTIN TIME 29.8 seconds 22.5-36.0 (JUSTINE) (test code = 760) RAD, CHEST, 1 VIEW, NON [id number] 18:34:00Reason for exam:->s/p NSTEMI, pre-op CXRShould this be performed at the bedside?->YesFINAL REPORT Chest, portable AP view History: Status post NSTEMI, preoperative c hest x-ray Comparison: No comparisons available for review IMPRESSION: The heart is within normal limits of size. Bibasilar atelectasis. There is mild interstitial edema. Small bilateral pleural effusions are suspected. No focal consolidation or pneumothorax. Signed: Nate Walsh MDReport Verified D ate/Time: 12/15/2019 18:34:02 Reading Location: [address] Radiology Reading Room POCT- GLUCOSE [id number] 16:09:00 Test Item Value Reference Range Interpretation Comments POC-GLUCOSE METER 185 mg/dL 70-110 H : TESTED A T [facility] 6720 (JUSTINE) (test code = [place], 1538) [address]: Sales Service Manager/Techni sandip ID = [id number] for GREG SUNG
[2022-05-07] MEDS ORDERED: ACETAMINOPHEN 500 MG TAB PO PRN (22:02)
[2022-05-07] MEDS ORDERED: DOCUSATE NA/SENNA CONC 1 TAB PO PRN (22:11)
[2022-05-07] MEDS ORDERED: D50W 25 GM/50 ML SYRINGE IV PRN (22:11)
[2022-05-07] MEDS ORDERED: GLUCAGON 1 MG/VIAL IM PRN (22:11)
[2022-05-07] MEDS ORDERED: NITROGLYCERIN 0.4 MG/TAB SL PRN (22:11)
[2022-05-07] MEDS ORDERED: methocarbamoL 750 MG TAB PO PRN (22:26)
[2022-05-07 23:14] LABS: Specific Gravity 1.015 (1.005-1.030); Urine Bilirubin Negative (Negative); Urine Blood 2+ (Negative); Urine Clarity Cloudy (Clear); Urine Color Yellow (Yellow); Urine Glucose 3+ (Negative); Urine Protein Negative (Negative)
[2022-05-08 00:06] LABS: Urine Bacteria <20 /HPF (<20)
[2022-05-08 04:52] LABS: Hematocrit 39.7 % (39.6-49.0); Lymphocytes % 13.3 % (15.3-44.8); MCV 97.7 fL (80-100); MPV 8.2 fL (7.6-11.3); RBC Red Blood Cell Count 4.06 M/uL (4.33-5.43)
[2022-05-08 05:04] LABS: Albumin 3.2 g/dL (3.4-5.0); Magnesium 2.1 mg/dL (1.8-2.4); Potassium 4.2 mmol/L (3.5-5.1); Prealbumin 12.7 mg/dL (20-40)
[2022-05-08] MEDS: LEVOTHYROXINE SOD 0.05 MG TABLET PO SCH (05:32)
[2022-05-08] MEDS: APIXABAN 5 MG TABLET PO SCH (07:21)
[2022-05-08] MEDS ORDERED: methocarbamoL 750 MG TAB PO PRN (07:22)
[2022-05-08] MEDS ORDERED: PANTOPRAZOLE 40MG TABLET PO SCH (07:30)
[2022-05-08] MEDS: RANOLAZINE 500 MG PO SCH (08:00)
[2022-05-08] MEDS ORDERED: methocarbamoL 750 MG TAB PO SCH (08:00)
[2022-05-08] MEDS: ASPIRIN EC 81 MG TAB PO SCH ×2 (08:00→08:02)
[2022-05-08] MEDS: VITAMIN B COMPLEX 1 CAP PO SCH (08:02)
[2022-05-08] MEDS: VITAMIN D 1000 UNIT TAB PO SCH (08:02)
[2022-05-08] MEDS: METOPROLOL TAR 50 MG TAB PO SCH ×2 (08:02→19:34)
[2022-05-08] MEDS: TAMSULOSIN 0.4 MG SR CAP PO SCH ×2 (08:03→19:34)
[2022-05-08] MEDS: INSULIN -REGULAR HUMAN 50 UNIT/0.5 ML ML SQ SCH ×4 (08:04→22:09)
--- NOTE | 2022-05-08 17:00 | R.HP ---
HISTORY AND PHYSICAL FACILITY: [facility] ENCOUNTER DATE AND TIME: 05/08/2022 12:51 (CDT) MR#: [id number] NAME ALTHEA TOVAR ADDRESS: [address] [place] [address]: [place] [id number] PHONE: DATE OF : 1945 AGE: 76 SSN# [id number] GENDER: Male DEXTERITY Unknown dexterity MARITAL STATUS Unknown race PRE-HOSPITAL LIVING SETTING 01 - Home (private home/apt. board/care, assisted living, prison, transitional living) PRE-HOSPITAL LIVING WITH Family/Relatives ENCOUNTER PHYSICIAN: Dr. Rolf Vazquez M.D. 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 is a 76 yo male of unknown race. On 05/06/2022 he was admitted to [facility] with diagnosis GENERALIZED WEAKNESS. His impairment category is Debility 16 - Debility (16). Pre-morbidly, Pt. was independent/mod-I in Locomotion and Self-Care; and he had good Safety Awareness , Balance, Transfers Control, and Endurance. Currently, he has deficits of Locomotion, Safety Awareness, Transfers Control, Balance, Self-Care, an d Endurance. Pt. is now referred to [facility] for acute in-patient rehabilitation in order to maximize patient's functional independence in activities of daily living, strength, ROM, and mobi lity. Patient has realistic goal of being discharged at assistance level 6-Harsh to reside at Home with Fam davion/Relatives. 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) Ataxia, unspecified (R27.0) Paroxysmal atrial fibrillation (I48.0) Unspecified fall, initial encounter (W19.XXXA) Type 2 Diabetes CAD hypertension PAST SURGICAL HISTORY: Bilateral foot surgery Cardiac stents Right knee surgery SOCIAL HISTORY: - Home Living Family/Relatives REVIEW OF SYSTEMS: - Gen No Chills Fatigue No Fever - Eyes No Double Vision No itchiness - ENMT No Difficulty Swallowing - CVS No Chest Discomfort No Chest Pain Fatigue No Weight Gain - Resp No Cough No Shortness of Breath - GI Continent No Abdominal Pain No Constipation No Diarrhea - Continent No Kidney Pain No Painful Urination No Urinary Urgency - MSK No Joint Pain Muscle Cramps Stiffness - Skin No Itching No Rash No Suspicious Lesions - Neuro Coordination Difficulty No Difficulty with Concentration No Memory Loss No Seizures Weakness - Psych No Anxiety No Depression No HIV Exposure No Persistent Infections No Seasonal Allergies - Endo No Cold/Heat Intolerance No Excessive Hunger No Excessive Thirst No Excessive Urination PHYSICAL EXAM - Gen Alert and awake Lying in bed No apparent distress Oriented to: person, time, and place - Skin No breakdown Bilateral facial bruising, protective dressing on nose bridge - Eyes Hematoma around both eyes with injected left sclera. - Neck Decreased range of motion in all directions. - CVS RRR - Chest No abnormalities - Resp No wheezing - Abd Soft - GI Non distended Deferred - No abnormalities - Ext Mild bilateral lower extremity edema. 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 - Neuro No focal deficits. Decreased sensation in both hands with cervical radicular pain into both hands. - Psych No abnormalities VITAL SIGNS Temperature: 97.8 F SBP/DBP: 157/75 Pulse: 64 Resp: 16 NURSING: - Shower allowing shower PRECAUTIONS: - Fall Precaution Low bed TABS alarm Bed alarm - DVT Risk due to restricted mobility - Skin Breakdown Risk due to restricted mobility and age ACTIVITIES OOB only with supervision QI SCORES: - Self-Care A. Eating 04-Supervision or touching assistance B. Oral hygiene 04-Supervision or touching assistance C. Toileting hygiene 03-Partial/moderate assistance E. Shower/bathe self 03-Partial/moderate assistance F. Upper body dressing 03-Partial/moderate assistance G. Lower body dressing 03-Partial/moderate assistance H. Putting on/taking off footwear 03-Partial/moderate assistance - Mobility A. Roll left and right 03-Partial/moderate assistance B. Sit to lying 03-Partial/moderate assistance C. Lying to sitting on side of bed 03-Partial/moderate assistance D. Sit to stand 03-Partial/moderate assistance E. Chair/bxl-dl-drcvw transfer 03-Partial/moderate assistance F. Toilet transfer 03-Partial/moderate assistance G. Car transfer 88-Not attempted due to medical condition or safety concerns I. Walk 10 feet 88-Not attempted due to medical condition or safety concerns J. Walk 50 feet with two turns 88-Not attempted due to medical condition or safety concerns K. Walk 150 feet 88-Not attempted due to medical condition or safety concerns L. Walking 10 feet on uneven surfaces 88-Not attempted due to medical condition or safety concerns M. 1 step (curb) 88-Not attempted due to medical condition or safety concerns N. 4 steps 88-Not attempted due to medical condition or safety concerns O. 12 steps 88-Not attempted due to medical condition or safety concerns P. Picking up object 88-Not attempted due to medical condition or safety concerns R. Wheel 50 feet with two turns 09-Not applicable S. Wheel 150 feet 09-Not applicable - Bladder and Bowel Bladder continence 0-Always continent Bowel continence 0-Always continent - Endurance Fair - Balance Poor - Safety Awareness Poor CURRENT FUNC. DEFICITS: Self-Care, Mobility, Endurance, Balance, and Safety Awareness MEDICATIONS: - Other See attached MAR (Medication Administration Record) ASSESSMENT: Pt. is a 76 yo male of unknown race.On 05/06/2022 he was admitted to [facility] with diagn osis GENERALIZED WEAKNESS.His impairment category is Debility 16 - Debility (16).Pre-morbidly, Pt. w as independent/mod-I in Locomotion and Self-Care; and he had good Safety Awareness, Balance, Transfer s Control, and Endurance.Currently, he has deficits of Locomotion, Safety Awareness, Transfers Contro l, Balance, Self-Care, and Endurance.Pt. is now referred to [facility] for acu te in-patient rehabilitation in order to maximize patient's functional independence in activities of daily living, strength, ROM, and mobility.- Rehab Goal Patient has realistic goal of being discharged at assistance level 6-Harsh to reside at Home with Fam davion/Relatives. - Physical Therapy Gait dysfunction - to improve, our physical therapists will perform initial evaluation of pt's status upon admission and devise an individualized program for Gait Training, and Wheel Chair mobility Inability to transfer - to improve, our physical therapists will perform initial evaluation of pt's s tatus upon admission and devise an individualized program for Bed mobility Need for home safety evaluation - to improve, our physical therapists will perform initial evaluation of pt's status upon admission and devise an individualized program for Home Evaluation Need in caregiver upon discharge - to improve, our physical therapists will perform initial evaluatio n of pt's status upon admission and devise an individualized program for Caregiver Training New precaution - to improve, our physical therapists will perform initial evaluation of pt's status u ed admission and devise an individualized program for Patient precaution education Edema - to improve, our physical therapists will perform initial evaluation of pt's status upon admi ssion and devise an individualized program for Elevation Training, and Lymphedema Therapy Poor balance - to improve, our physical therapists will perform initial evaluation of pt's status upo n admission and devise an individualized program for Balance Training Poor endurance - to improve, our physical therapists will perform initial evaluation of pt's status u ed admission and devise an individualized program for Endurance Training Weakness - to improve, our physical therapists will perform initial evaluation of pt's status upon ad mission and devise an individualized program for Aquatic Therapy, Neuromuscular Reeducation, and Stre ngthening Achieving independence - to improve, our physical therapists will perform initial evaluation of pt's status upon admission and devise an individualized program for Community Reintegration Activities - Occupational Therapy ADL deficits - to improve, our occupation therapists will perform initial evaluation of pt's status u ed admission and devise an individualized program for Bathing, Bed mobility, Community Reintegration , Cooking, Dressing, Eating, Fine Motor Skills, Grooming, Homemaking, Kitchen Mobility, Laundry, Laurie ent Education, Safety Awareness, Splinting - Positioning, Transfers(Toilet, Tub, Shower), and Wheel C hair Management Need for career representative - to improve, our occupation therapists will perform initial evaluation of pt's s tatus upon admission and devise an individualized program for Caregiver Training Weakness - to improve, our occupation therapists will perform initial evaluation of pt's status upon admission and devise an individualized program for Aquatic Therapy, Balance, Endurance, UE ROM, and U E strengthening MEDICAL PLAN: - Diet Type Start Regular - Diet - Liquid Texture Start Regular - Tube Feed Start N/A - DVT Risk due to restricted mobility - Skin Breakdown Risk due to restricted mobility and age - Fall Precaution Low bed TABS alarm Bed alarm - Other See attached MAR (Medication Administration Record) - Diet - Solid Texture Regular - Shower shower DISCHARGE PLAN: - Estimated Length of Stay (days) 13. - Consensus on plan Discharge plan has been discussed with primary caregiver. Patient/Family is in agreement with the scotty n. Primary caregiver is in agreement with the plan. - Patient/Family Goals Return home independently. - Planned Living Setting Upon Discharge Home, to live with Family/Relatives. Transitional Living. SIGNATURE PANEL: (CDT)
--- NOTE | 2022-05-08 17:02 | PAPE ---
POST ADMISSION PHYSICIAN EVALUATION PATIENT: [facility] MR# [id number] REFERRING DOCTOR Atilio Alves EVALUATION DATE AND TIME 05/08/2022 17:00 (CDT) NAME ALTHEA TOVAR DATE OF 1945 AGE 76 PHONE N# [id number] GENDER male EVALUATING PHYSICIAN Dr. Rolf Vazquez M.D. ADMISSION DIAGNOSIS: GENERALIZED WEAKNESS ONSET DATE 05/06/2022 SECONDARY/COMORBID DIAGNOSES TIERED: - Non-Tiered Alcohol use, unspecified with intoxication, unspecified (F10.929) Ataxia, unspecified (R27.0) Unspecified fall, initial encounter (W19.XXXA) Paroxysmal atrial fibrillation (I48.0) POST-ADMISSION FUNCTIONAL/MEDICAL STATUS: - Bladder Same accident frequency: 7-Ind - No accidents in the past 7 days - Bowel Same accident frequency: 7-Ind - No accidents in the past 7 days - Walking Same score based on distance walked: 0(N/A) - Wheelchair Same score based on distance traveled: 0(N/A) STATUS CHANGE EVALUATION: No change in Functional or Medical Status is identified compared with Pre-Admission screening. PATIENT NEEDS CLOSE MEDICAL SUPERVISION BY A REHABILITATION PHYSICIAN FOR: Coordination of Treatment Team Medical and Co-Morbidity Management Wound Care Diabetes Management Pain Management PATIENT REQUIRES 24X7 REHAB NURSING FOR MEDICAL AND FUNCTIONAL MGT. OF THE FOLLOWING DEFICITS: Disease Management Medication Management Patient requires 24x7 Rehabilitation Nursing for: Pain Issues, Identifying and preventing risk factor s, Monitoring and reporting current medical conditions, Assisting with ambulation and transfer, Katherine ting with all ADL-s, Teaching patients about disease process and medications, Family teaching, Provid ing safe environment, Bowel and Bladder Issues, Skin Integrity, and Medication Management Patient/Family Education Providing Safe Environment Skin Integrity PATIENT REQUIRES INTENSIVE, COORDINATED INTERDISCIPLINARY APPROACH TO REHAB: Arranging Home Equipment/Services Discharge Planning Family Intervention/Training Patient needs Dietary and Nutrition Services for: Adequate Nutrition, Nutritional Supplements, and Nu tritional Education Patient needs Claims Configuration Analyst and/or Case Management for: Discharge Planning, Arranging Home Equipmen t or Services, and Family Interventions Claims Configuration Analyst/Case Management LIST OF IDENTIFIED AND POTENTIAL PROBLEMS: Alteration in leisure activities Bladder, Incontinence Bowel, Incontinence Infection, Actual or Potential Mobility Impaired Pain, Alteration in Comfort Self Care Deficit Skin Integrity, Actual or Potential Urinary Tract Infection (UTI), Actual or Potential RISK FOR COMPLICATIONS - Falls Assess for alcohol withdrawal. Assess for medication side effects. Maintain call light within patient reach for easy access to nursing assistance. Provide assistance getting out of bed and with ambulati on. Provide assistive devices. - DVT Active and Passive ROM exercises. Administer medications per MD order. Assist patient with frequent p osition changes. Elevate BLE. - Skin Breakdown Encourage ambulation as tolerated. Repositioning q 2 hours. Use of pillows or foam wedges while in be d. - Pain Anticipate the need for pain medication for optimal pain managment. Administer prescribed pain medica tion as needed. Assess pt for pain and Administer prescribed pain medication as needed. Assist patien t with frequent position changes at least every 2 hours. Educate patient on relaxation and deep breat malena techniques. INTERVENTIONS - Generalized Weakness Aggressive PT/OT. - Afib Assess/Monitor pt cardiac and respiratory status regularly. Administer prescribed anticoagulants and monitor effectiveness. Monitor pt labs. Vitals will be monitored/assessed regularly. - Ataxia Aggressive PT/OT. - Alcohol Abuse Administer prescribed medications per MD order. CIWA protocol. PATIENT COULD BE AT RISK FOR COMPLICATIONS FROM ADVERSE MEDICAL CONDITIONS DUE TO HIS/HER COMORBIDITI ES AND THE RIGORS OF THE INTENSIVE REHABILLITATION PROGRAM. METHODS OR INTERVENTIONS TO AVOID COMPLIC ATIONS INCLUDE: - Bleeding Assess lab values and manage abnormalities. Nursing to teach precautions for anti-coagulation therapy . Wound to be assessed every shift. - Infection Clinical staff to assess and manage the signs and symptoms of infection including fever, redness, war mth, etc. - Urinary Tract Infection - Falls Patient will be evaluated for Fall Precautions and will be placed on Fall Precautions as indicated pe r protocol. - Skin Breakdown Nursing will assess skin daily using assessment tool and will place on Skin Breakdown Precautions as indicated per protocol. - Pain Clinical staff may employ non-medication methods such as massage, distraction, decrease stimulus, etc . as needed. Clinical staff will assess patient's pain level every shift per protocol to assess and e nsure pain management effectiveness. Medications will be given and the pain level re-assessed. PRELIMINARY PLAN OF CARE: - Physical Therapy Patient needs Physical Therapy for a daily minimum of 1.5 hours at least 5 out of 7 days, to improve: Mobility, Strengthening, Transfers, Stretching, ROM, Endurance, Ability to manage stairs, Gait, and Balance. - Speech Therapy Patient needs Speech Therapy for a daily minimum of 0.5 hours at least 5 out of 7 days, to improve: S wallowing, Cognition, Language Skills, and Compensatory Strategies. - Rehabilitation Nursing Patient requires 24x7 Rehabilitation Nursing for: Pain Issues, Identifying and preventing risk factor s, Monitoring and reporting current medical conditions, Assisting with ambulation and transfer, Katherine ting with all ADL-s, Teaching patients about disease process and medications, Family teaching, Provid ing safe environment, Bowel and Bladder Issues, Skin Integrity, and Medication Management. Patient needs Claims Configuration Analyst and/or Case Management for: Discharge Planning, Arranging Home Equipmen t or Services, and Family Interventions. - Dietary and Nutrition Services Patient needs Dietary and Nutrition Services for: Adequate Nutrition, Nutritional Supplements, and Nu tritional Education. - Occupational Therapy Patient needs Occupational Therapy for a daily minimum of 1.5 hours at least 5 out of 7 days, to impr ove Activities of Daily Living, including: Eating, Grooming, Bathing, Dressing, Toileting, Toilet Tra nsfers, Community Reintegration, Higher functional activities, Adaptive Equipment, Splinting, Househo ld Tasks, and Other activities as determined. QI SCORES: - Self-Care A. Eating 04-Supervision or touching assistance B. Oral hygiene 04-Supervision or touching assistance C. Toileting hygiene 03-Partial/moderate assistance E. Shower/bathe self 03-Partial/moderate assistance F. Upper body dressing 03-Partial/moderate assistance G. Lower body dressing 03-Partial/moderate assistance H. Putting on/taking off footwear 03-Partial/moderate assistance - Mobility A. Roll left and right 03-Partial/moderate assistance B. Sit to lying 03-Partial/moderate assistance C. Lying to sitting on side of bed 03-Partial/moderate assistance D. Sit to stand 03-Partial/moderate assistance E. Chair/szj-fz-ehbpw transfer 03-Partial/moderate assistance F. Toilet transfer 03-Partial/moderate assistance G. Car transfer 88-Not attempted due to medical condition or safety concerns I. Walk 10 feet 88-Not attempted due to medical condition or safety concerns J. Walk 50 feet with two turns 88-Not attempted due to medical condition or safety concerns K. Walk 150 feet 88-Not attempted due to medical condition or safety concerns L. Walking 10 feet on uneven surfaces 88-Not attempted due to medical condition or safety concerns M. 1 step (curb) 88-Not attempted due to medical condition or safety concerns N. 4 steps 88-Not attempted due to medical condition or safety concerns O. 12 steps 88-Not attempted due to medical condition or safety concerns P. Picking up object 88-Not attempted due to medical condition or safety concerns R. Wheel 50 feet with two turns 09-Not applicable S. Wheel 150 feet 09-Not applicable - Bladder and Bowel Bladder continence 0-Always continent Bowel continence 0-Always continent - Endurance Fair - Balance Poor - Safety Awareness Poor POTENTIAL FUNCTIONAL GOALS FOR PATIENT TO ACHIEVE BY DISCHARGE: - Safety Precaution Patient will remain free from falls or injury at time of discharge. - Bed Mobility Patient will perform bed mobility at 4-Junior level of assistance. - Transfers Patient will complete transfers from bed to chair at 4-Junior level of assistance. - Mobility Patient will ambulate 150 ft with 4-Junior level of assistance with RW. PATIENT REHAB POTENTIAL Ciera TOVAR is able and expected to receive 3 hours of individualized therapy daily on at least 5 of every 7 days Ciera TOVAR's prognosis for significant practical improvement within a reasonable period of time appe ars Good Expected level of measurable improvement will be of a practical value to Ciera TOVAR's functional cap acity or adaptations to impairments Has a viable Discharge Plan Medically appropriate; condition is sufficiently stable to participate in intensive rehab program DISCHARGE PLAN: - Estimated Length of Stay (days) 13. - Consensus on plan Discharge plan has been discussed with primary caregiver. Patient/Family is in agreement with the scotty n. Primary caregiver is in agreement with the plan. - Patient/Family Goals Return home independently. - Planned Living Setting Upon Discharge Home, to live with Family/Relatives. Transitional Living. CONCLUSION ON REHABILITATION NECESSITY: I have evaluated patient's pre-admission functional status and, comparing it to the patient's post-ad mission functional status now, I conclude that the pre-admission assessment was accurate. Patient's c ondition on admission supports the medical necessity of admission to [facility]. It is safe to proceed with patient's therapy program. SIGNATURE PANEL: (CDT)
[2022-05-08] MEDS: ROSUVASTATIN 10 MG TAB PO SCH (19:34)
[2022-05-08] MEDS: HYDROCODONE/APAP 5/325 MG TAB PO PRN (19:35)
[2022-05-08] MEDS: MELATONIN 5 MG TABLET PO SCH (19:35)
[2022-05-09 04:43] LABS: Potassium 3.3 mmol/L (3.5-5.1)
[2022-05-09] MEDS: LEVOTHYROXINE SOD 0.05 MG TABLET PO SCH (05:29)
[2022-05-09] MEDS: RANOLAZINE 500 MG PO SCH (08:00)
[2022-05-09] MEDS: [UNRECOGNIZED DRUG - SUPPLY] TOP SCH ×2 (08:00→16:22)
[2022-05-09] MEDS: METOPROLOL TAR 50 MG TAB PO SCH ×2 (08:41→20:48)
[2022-05-09] MEDS: VITAMIN D 1000 UNIT TAB PO SCH (08:42)
[2022-05-09] MEDS: APIXABAN 5 MG TABLET PO SCH (08:42)
[2022-05-09] MEDS: TAMSULOSIN 0.4 MG SR CAP PO SCH ×2 (08:42→20:47)
[2022-05-09] MEDS: VITAMIN B COMPLEX 1 CAP PO SCH (08:42)
[2022-05-09] MEDS: PANTOPRAZOLE 40MG TABLET PO SCH (08:42)
[2022-05-09] MEDS: INSULIN -REGULAR HUMAN 50 UNIT/0.5 ML ML SQ SCH ×4 (08:43→20:48)
[2022-05-09] MEDS: INSULIN GLARGINE 100 UNIT/ML SQ SCH (08:44)
[2022-05-09] MEDS: HYDROCODONE/APAP 5/325 MG TAB PO PRN (09:57)
--- NOTE | 2022-05-09 17:18 | R.PN ---
PROGRESS NOTES ENCOUNTER DATE AND TIME: 05/09/2022 17:06 (CDT) NAME ALTHEA TOVAR DATE OF : 1945 DATE OF ADMISSION: 05/07/2022 21:00 (CDT) GENERALIZED WEAKNESSCHIEF COMPLAINT: Fell on his face, debility with generalized weakness SUBJECTIVE: Pt denied any Shortness of Breath. Pt denied any depression. WBC 7.5, Hgb 13.2, HgA1c 7.8, glucose 185 to 439, prealbumin 12.7. Note serum alcohol was 297 on 05/04 when he was admitted to the acute care hospital after falling. Ambulated 10' with max assistance using a rolling walker. VITAL SIGNS Temperature: 97.8 F SBP/DBP: 157/75 Pulse: 64 Resp: 16 MEDICATION ALLERGIES: No Known Drug Allergies (NKDA) ENVIRONMENTAL ALLERGIES: - Substance Allergies None Known - Other Allergies None Known NURSING: - Shower allowing shower PRECAUTIONS: - Fall Precaution Low bed TABS alarm Bed alarm - DVT Risk due to restricted mobility - Skin Breakdown Risk due to restricted mobility and age ACTIVITIES OOB only with supervision THERAPIES: - Dietary and Nutrition Adequate Nutrition. Nutritional Education. Nutritional Supplements. - Occupational Therapy Cognitive Retraining. Patient needs Occupational Therapy for a daily minimum of 1.5 hours at least 5 out of 7 days, to improve Activities of Daily Living, including: Eating, Grooming, Bathing, Dressing, Toileting, Toilet Transfers, Community Reintegration, Higher functional activities, Adaptive Equipme nt, Splinting, Household Tasks, and Other activities as determined. Visual Perceptual Training. - Physical Therapy Patient needs Physical Therapy for a daily minimum of 1.5 hours at least 5 out of 7 days, to improve: Mobility, Strengthening, Transfers, Stretching, ROM, Endurance, Ability to manage stairs, Gait, and Balance. PHYSICAL EXAM - Gen Alert and awake Lying in bed No apparent distress Oriented to: person, time, and place - Skin No breakdown Bilateral facial bruising, protective dressing on nose bridge - Eyes Hematoma around both eyes with injected left sclera. - Neck Decreased range of motion in all directions. - CVS RRR - Chest No abnormalities - Resp No wheezing - Abd Soft - GI Non distended Deferred - No abnormalities - Ext Mild bilateral lower extremity edema. - MSK 4/5 weakness in both lower extremities and 4/5 bilateral hand pediatric allergist. - Neuro No focal deficits. Decreased sensation in both hands with cervical radicular pain into both hands. - Psych No abnormalities ASSESSMENT: Pt. is a 76 yo male of unknown race.On 05/06/2022 he was admitted to [facility] with diagn osis GENERALIZED WEAKNESS.His impairment category is Debility 16 - Debility (16).Pre-morbidly, Pt. w as independent/mod-I in Locomotion and Self-Care; and he had good Safety Awareness, Balance, Transfer s Control, and Endurance.Currently, he has deficits of Locomotion, Safety Awareness, Transfers Contro l, Balance, Self-Care, and Endurance.Pt. is now referred to [facility] for acu te in-patient rehabilitation in order to maximize patient's functional independence in activities of daily living, strength, ROM, and mobility.- Rehab Goal Patient has realistic goal of being discharged at assistance level 6-Harsh to reside at Home with Fam davion/Relatives. MDM/PLAN: - Physical Therapy Gait dysfunction - to improve, our physical therapists will perform initial evaluation of pt's statu s upon admission and devise an individualized program for Gait Training, and Wheel Chair mobility Inability to transfer - to improve, our physical therapists will perform initial evaluation of pt's status upon admission and devise an individualized program for Bed mobility Need for home safety evaluation - to improve, our physical therapists will perform initial evaluatio n of pt's status upon admission and devise an individualized program for Home Evaluation Need in caregiver upon discharge - to improve, our physical therapists will perform initial evaluati on of pt's status upon admission and devise an individualized program for Caregiver Training New precaution - to improve, our physical therapists will perform initial evaluation of pt's status upon admission and devise an individualized program for Patient precaution education Edema - to improve, our physical therapists will perform initial evaluation of pt's status upon admis souleymane and devise an individualized program for Elevation Training, and Lymphedema Therapy Poor balance - to improve, our physical therapists will perform initial evaluation of pt's status up on admission and devise an individualized program for Balance Training Poor endurance - to improve, our physical therapists will perform initial evaluation of pt's status upon admission and devise an individualized program for Endurance Training Weakness - to improve, our physical therapists will perform initial evaluation of pt's status upon a dmission and devise an individualized program for Aquatic Therapy, Neuromuscular Reeducation, and Str engthening Achieving independence - to improve, our physical therapists will perform initial evaluation of pt's status upon admission and devise an individualized program for Community Reintegration Activities - Occupational Therapy ADL deficits - to improve, our occupation therapists will perform initial evaluation of pt's status upon admission and devise an individualized program for Bathing, Bed mobility, Community Reintegratio n, Cooking, Dressing, Eating, Fine Motor Skills, Grooming, Homemaking, Kitchen Mobility, Laundry, Pat ient Education, Safety Awareness, Splinting - Positioning, Transfers(Toilet, Tub, Shower), and Wheel Chair Management Need for home care companion - to improve, our occupation therapists will perform initial evaluation of pt's status upon admission and devise an individualized program for Caregiver Training Weakness - to improve, our occupation therapists will perform initial evaluation of pt's status upon admission and devise an individualized program for Aquatic Therapy, Balance, Endurance, UE ROM, and UE strengthening - Other See attached MAR (Medication Administration Record) - Diet Type Continue Regular - Diet - Liquid Texture Continue Regular - Tube Feed Continue N/A - DVT Risk due to restricted mobility - Skin Breakdown Risk due to restricted mobility and age - Fall Precaution Low bed TABS alarm Bed alarm - Diet - Solid Texture Continue Regular - Shower allowing shower FUNCTIONAL STATUS: UPDATED AT WEEKLY TEAM CONFERENCE - Bladder Same accident frequency: 7-Ind - No accidents in the past 7 days - Bowel Same accident frequency: 7-Ind - No accidents in the past 7 days - Walking Same score based on distance walked: 0(N/A) - Wheelchair Same score based on distance traveled: 0(N/A) FUNCTIONAL STATUS: - Self-Care A. Eating Harsh B. Grooming Harsh C. Bathing modA D. Dressing - Upper Junior E. Dressing - Lower modA F. Toileting sup - Sphincter Control G. Bladder control Harsh H. Bowel control Harsh - Transfers Control I. Bed/Chair/Wheelchair modA J. Toilet maxA K. Tub/Shower maxA - Locomotion L. Walk/Wheelchair (B) maxA M. Stairs ADNO - Communication N. Comprehension (B) Harsh O. Expression (B) Harsh - Social Cognition P. Social Interaction Harsh Q. Problem Solving sup R. Memory Harsh - Endurance Fair - Balance Fair - Safety Awareness Fair QI SCORES: - Self-Care A. Eating 04-Supervision or touching assistance B. Oral hygiene 04-Supervision or touching assistance C. Toileting hygiene 03-Partial/moderate assistance E. Shower/bathe self 03-Partial/moderate assistance F. Upper body dressing 03-Partial/moderate assistance G. Lower body dressing 03-Partial/moderate assistance H. Putting on/taking off footwear 03-Partial/moderate assistance - Mobility A. Roll left and right 03-Partial/moderate assistance B. Sit to lying 03-Partial/moderate assistance C. Lying to sitting on side of bed 03-Partial/moderate assistance D. Sit to stand 03-Partial/moderate assistance E. Chair/[id number]-[id number] transfer 03-Partial/moderate assistance F. Toilet transfer 03-Partial/moderate assistance G. Car transfer 88-Not attempted due to medical condition or safety concerns I. Walk 10 feet 88-Not attempted due to medical condition or safety concerns J. Walk 50 feet with two turns 88-Not attempted due to medical condition or safety concerns K. Walk 150 feet 88-Not attempted due to medical condition or safety concerns L. Walking 10 feet on uneven surfaces 88-Not attempted due to medical condition or safety concerns M. 1 step (curb) 88-Not attempted due to medical condition or safety concerns N. 4 steps 88-Not attempted due to medical condition or safety concerns O. 12 steps 88-Not attempted due to medical condition or safety concerns P. Picking up object 88-Not attempted due to medical condition or safety concerns R. Wheel 50 feet with two turns 09-Not applicable S. Wheel 150 feet 09-Not applicable - Bladder and Bowel Bladder continence 0-Always continent Bowel continence 0-Always continent - Endurance Fair - Balance Poor - Safety Awareness Poor CURRENT FUNC. DEFICITS: Self-Care, Mobility, Endurance, Balance, and Safety Awareness SIGNATURE PANEL: (CDT)
[2022-05-09] MEDS: ROSUVASTATIN 10 MG TAB PO SCH (20:47)
[2022-05-09] MEDS: MELATONIN 5 MG TABLET PO SCH (20:48)
[2022-05-10 04:38] LABS: Absolute Lymphocytes (CBC) 1.5 K/uL (0.7-4.9); Hematocrit 40.8 % (39.6-49.0); Lymphocytes % 22.3 % (15.3-44.8); MCV 97.3 fL (80-100); MPV 7.8 fL (7.6-11.3); RBC Red Blood Cell Count 4.19 M/uL (4.33-5.43)
[2022-05-10 05:14] LABS: Albumin 3.1 g/dL (3.4-5.0); Magnesium 2.1 mg/dL (1.8-2.4); Potassium 3.6 mmol/L (3.5-5.1); Prealbumin 13.5 mg/dL (20-40)
[2022-05-10] MEDS: PANTOPRAZOLE 40MG TABLET PO SCH (06:35)
[2022-05-10] MEDS: LEVOTHYROXINE SOD 0.05 MG TABLET PO SCH (06:35)
[2022-05-10] MEDS: INSULIN -REGULAR HUMAN 50 UNIT/0.5 ML ML SQ SCH ×4 (07:30→20:22)
[2022-05-10] MEDS: RANOLAZINE 500 MG PO SCH (08:00)
[2022-05-10] MEDS: INSULIN GLARGINE 100 UNIT/ML SQ SCH (08:23)
[2022-05-10] MEDS: VITAMIN D 1000 UNIT TAB PO SCH (08:24)
[2022-05-10] MEDS: POTASSIUM CL SA 10 MEQ TAB PO SCH (08:25)
[2022-05-10] MEDS: VITAMIN B COMPLEX 1 CAP PO SCH (08:25)
[2022-05-10] MEDS: TAMSULOSIN 0.4 MG SR CAP PO SCH ×2 (08:25→20:21)
[2022-05-10] MEDS: APIXABAN 5 MG TABLET PO SCH (08:26)
[2022-05-10] MEDS: METOPROLOL TAR 50 MG TAB PO SCH ×2 (08:26→20:22)
--- NOTE | 2022-05-10 18:19 | R.PN ---
PROGRESS NOTES ENCOUNTER DATE AND TIME: 05/10/2022 18:13 (CDT) NAME ALTHEA TOVAR DATE OF : 1945 DATE OF ADMISSION: 05/07/2022 21:00 (CDT) GENERALIZED WEAKNESSCHIEF COMPLAINT: Fell on his face, debility with generalized weakness SUBJECTIVE: Pt denied any Shortness of Breath. Pt denied any depression. WBC 6.6, Hgb 13.8, HgA1c 7.8, glucose 175 to 237, prealbumin 13.5. Note serum alcohol was 297 on 05/04 when he was admitted to the acute care hospital after falling. Self-propelled wheelchair 150' with min assistance. VITAL SIGNS Temperature: 97.0 F SBP/DBP: 138/67 Pulse: 57 Resp: 16 MEDICATION ALLERGIES: No Known Drug Allergies (NKDA) ENVIRONMENTAL ALLERGIES: - Substance Allergies None Known - Other Allergies None Known NURSING: - Shower allowing shower PRECAUTIONS: - Fall Precaution Low bed TABS alarm Bed alarm - DVT Risk due to restricted mobility - Skin Breakdown Risk due to restricted mobility and age ACTIVITIES OOB only with supervision THERAPIES: - Dietary and Nutrition Adequate Nutrition. Nutritional Education. Nutritional Supplements. - Occupational Therapy Cognitive Retraining. Patient needs Occupational Therapy for a daily minimum of 1.5 hours at least 5 out of 7 days, to improve Activities of Daily Living, including: Eating, Grooming, Bathing, Dressing, Toileting, Toilet Transfers, Community Reintegration, Higher functional activities, Adaptive Equipme nt, Splinting, Household Tasks, and Other activities as determined. Visual Perceptual Training. - Physical Therapy Patient needs Physical Therapy for a daily minimum of 1.5 hours at least 5 out of 7 days, to improve: Mobility, Strengthening, Transfers, Stretching, ROM, Endurance, Ability to manage stairs, Gait, and Balance. PHYSICAL EXAM - Gen Alert and awake Lying in bed No apparent distress Oriented to: person, time, and place - Skin No breakdown Bilateral facial bruising, protective dressing on nose bridge - Eyes Hematoma around both eyes with injected left sclera. - Neck Decreased range of motion in all directions. - CVS RRR - Chest No abnormalities - Resp No wheezing - Abd Soft - GI Non distended Deferred - No abnormalities - Ext Mild bilateral lower extremity edema. - MSK 4/5 weakness in both lower extremities and 4/5 bilateral hand department head. - Neuro No focal deficits. Decreased sensation in both hands with cervical radicular pain into both hands. - Psych No abnormalities ASSESSMENT: Pt. is a 76 yo male of unknown race.On 05/06/2022 he was admitted to [facility] with diagn osis GENERALIZED WEAKNESS.His impairment category is Debility 16 - Debility (16).Pre-morbidly, Pt. w as independent/mod-I in Locomotion and Self-Care; and he had good Safety Awareness, Balance, Transfer s Control, and Endurance.Currently, he has deficits of Locomotion, Safety Awareness, Transfers Contro l, Balance, Self-Care, and Endurance.Pt. is now referred to [facility] for acu te in-patient rehabilitation in order to maximize patient's functional independence in activities of daily living, strength, ROM, and mobility.- Rehab Goal Patient has realistic goal of being discharged at assistance level 6-Harsh to reside at Home with Fam davion/Relatives. MDM/PLAN: - Physical Therapy Gait dysfunction - to improve, our physical therapists will perform initial evaluation of pt's statu s upon admission and devise an individualized program for Gait Training, and Wheel Chair mobility Inability to transfer - to improve, our physical therapists will perform initial evaluation of pt's status upon admission and devise an individualized program for Bed mobility Need for home safety evaluation - to improve, our physical therapists will perform initial evaluatio n of pt's status upon admission and devise an individualized program for Home Evaluation Need in caregiver upon discharge - to improve, our physical therapists will perform initial evaluati on of pt's status upon admission and devise an individualized program for Caregiver Training New precaution - to improve, our physical therapists will perform initial evaluation of pt's status upon admission and devise an individualized program for Patient precaution education Edema - to improve, our physical therapists will perform initial evaluation of pt's status upon admi ssion and devise an individualized program for Elevation Training, and Lymphedema Therapy Poor balance - to improve, our physical therapists will perform initial evaluation of pt's status up on admission and devise an individualized program for Balance Training Poor endurance - to improve, our physical therapists will perform initial evaluation of pt's status upon admission and devise an individualized program for Endurance Training Weakness - to improve, our physical therapists will perform initial evaluation of pt's status upon a dmission and devise an individualized program for Aquatic Therapy, Neuromuscular Reeducation, and Str engthening Achieving independence - to improve, our physical therapists will perform initial evaluation of pt's status upon admission and devise an individualized program for Community Reintegration Activities - Occupational Therapy ADL deficits - to improve, our occupation therapists will perform initial evaluation of pt's status upon admission and devise an individualized program for Bathing, Bed mobility, Community Reintegratio n, Cooking, Dressing, Eating, Fine Motor Skills, Grooming, Homemaking, Kitchen Mobility, Laundry, Pat ient Education, Safety Awareness, Splinting - Positioning, Transfers(Toilet, Tub, Shower), and Wheel Chair Management Need for in home caregiver - to improve, our occupation therapists will perform initial evaluation of pt's status upon admission and devise an individualized program for Caregiver Training Weakness - to improve, our occupation therapists will perform initial evaluation of pt's status upon admission and devise an individualized program for Aquatic Therapy, Balance, Endurance, UE ROM, and UE strengthening - Other See attached MAR (Medication Administration Record) - Diet Type Continue Regular - Diet - Liquid Texture Continue Regular - Tube Feed Continue N/A - DVT Risk due to restricted mobility - Skin Breakdown Risk due to restricted mobility and age - Fall Precaution Low bed TABS alarm Bed alarm - Diet - Solid Texture Continue Regular - Shower allowing shower FUNCTIONAL STATUS: UPDATED AT WEEKLY TEAM CONFERENCE - Bladder Same accident frequency: 7-Ind - No accidents in the past 7 days - Bowel Same accident frequency: 7-Ind - No accidents in the past 7 days - Walking Same score based on distance walked: 0(N/A) - Wheelchair Same score based on distance traveled: 0(N/A) FUNCTIONAL STATUS: - Self-Care A. Eating Harsh B. Grooming Harsh C. Bathing modA D. Dressing - Upper Junior E. Dressing - Lower modA F. Toileting sup - Sphincter Control G. Bladder control Harsh H. Bowel control Harsh - Transfers Control I. Bed/Chair/Wheelchair modA J. Toilet maxA K. Tub/Shower maxA - Locomotion L. Walk/Wheelchair (B) maxA M. Stairs ADNO - Communication N. Comprehension (B) Harsh O. Expression (B) Harsh - Social Cognition P. Social Interaction Harsh Q. Problem Solving sup R. Memory Harsh - Endurance Fair - Balance Fair - Safety Awareness Fair QI SCORES: - Self-Care A. Eating 04-Supervision or touching assistance B. Oral hygiene 04-Supervision or touching assistance C. Toileting hygiene 03-Partial/moderate assistance E. Shower/bathe self 03-Partial/moderate assistance F. Upper body dressing 03-Partial/moderate assistance G. Lower body dressing 03-Partial/moderate assistance H. Putting on/taking off footwear 03-Partial/moderate assistance - Mobility A. Roll left and right 03-Partial/moderate assistance B. Sit to lying 03-Partial/moderate assistance C. Lying to sitting on side of bed 03-Partial/moderate assistance D. Sit to stand 03-Partial/moderate assistance E. Chair/[id number]-aphcc transfer 03-Partial/moderate assistance F. Toilet transfer 03-Partial/moderate assistance G. Car transfer 88-Not attempted due to medical condition or safety concerns I. Walk 10 feet 88-Not attempted due to medical condition or safety concerns J. Walk 50 feet with two turns 88-Not attempted due to medical condition or safety concerns K. Walk 150 feet 88-Not attempted due to medical condition or safety concerns L. Walking 10 feet on uneven surfaces 88-Not attempted due to medical condition or safety concerns M. 1 step (curb) 88-Not attempted due to medical condition or safety concerns N. 4 steps 88-Not attempted due to medical condition or safety concerns O. 12 steps 88-Not attempted due to medical condition or safety concerns P. Picking up object 88-Not attempted due to medical condition or safety concerns R. Wheel 50 feet with two turns 09-Not applicable S. Wheel 150 feet 09-Not applicable - Bladder and Bowel Bladder continence 0-Always continent Bowel continence 0-Always continent - Endurance Fair - Balance Poor - Safety Awareness Poor CURRENT FUNC. DEFICITS: Self-Care, Mobility, Endurance, Balance, and Safety Awareness SIGNATURE PANEL: (CDT)
[2022-05-10] MEDS: ROSUVASTATIN 10 MG TAB PO SCH (20:21)
[2022-05-10] MEDS: MELATONIN 5 MG TABLET PO SCH (20:22)
[2022-05-10] MEDS: HYDROCODONE/APAP 5/325 MG TAB PO PRN (20:26)
[2022-05-11] MEDS: LEVOTHYROXINE SOD 0.05 MG TABLET PO SCH (05:19)
[2022-05-11] MEDS: RANOLAZINE 500 MG PO SCH (08:00)
[2022-05-11] MEDS: INSULIN GLARGINE 100 UNIT/ML SQ SCH (08:55)
[2022-05-11] MEDS: INSULIN -REGULAR HUMAN 50 UNIT/0.5 ML ML SQ SCH ×4 (08:56→20:47)
[2022-05-11] MEDS: APIXABAN 5 MG TABLET PO SCH (08:56)
[2022-05-11] MEDS: POTASSIUM CL SA 10 MEQ TAB PO SCH (08:56)
[2022-05-11] MEDS: TAMSULOSIN 0.4 MG SR CAP PO SCH ×2 (08:57→20:44)
[2022-05-11] MEDS: HYDROCODONE/APAP 5/325 MG TAB PO PRN ×2 (08:57→20:45)
[2022-05-11] MEDS: VITAMIN D 1000 UNIT TAB PO SCH (08:57)
[2022-05-11] MEDS: VITAMIN B COMPLEX 1 CAP PO SCH (08:57)
[2022-05-11] MEDS: PANTOPRAZOLE 40MG TABLET PO SCH (09:01)
[2022-05-11] MEDS: METOPROLOL TAR 50 MG TAB PO SCH ×2 (09:01→20:44)
--- NOTE | 2022-05-11 13:39 | P.RH.PN ---
Estimated Length of Stay: 16 Expected Discharge Date: 05/23/22 Discharge Disposition Plan: Home Family Support: Yes Care Home Goal: Mobility, Transfers, Self Care Vital Signs: Last Vital Signs Temp 97.4 F 05/11/22 08:41 Pulse 73 05/11/22 09:01 Resp 16 05/11/22 09:57 BP 122/64 05/11/22 09:01 Pulse Ox 97 05/11/22 09:57 Laboratory: Laboratory Last Values WBC 6.60 K/uL (4.3-10.9) 05/10/22 04:10 RBC 4.19 M/uL (4.33-5.43) L 05/10/22 04:10 Hgb 13.8 g/dL (13.6-17.9) 05/10/22 04:10 Hct 40.8 % (39.6-49.0) 05/10/22 04:10 MCV 97.3 fL (80-100) 05/10/22 04:10 MCH 32.9 pg (27.0-35.0) 05/10/22 04:10 MCHC 33.8 g/dL (32.0-36.0) 05/10/22 04:10 RDW 14.4 % (12.1-15.2) 05/10/22 04:10 Plt Count 181 K/uL (152-406) 05/10/22 04:10 MPV 7.8 fL (7.6-11.3) 05/10/22 04:10 Neutrophils % 58.6 % (41.7-73.7) 05/10/22 04:10 Lymphocytes % 22.3 % (15.3-44.8) 05/10/22 04:10 Monocytes % 17.1 % (3.3-12.3) H 05/10/22 04:10 Eosinophils % 1.3 % (0-4.4) 05/10/22 04:10 Basophils % 0.7 % (0-1.3) 05/10/22 04:10 Absolute Neutrophils 3.9 K/uL (1.8-8.0) 05/10/22 04:10 Absolute Lymphocytes 1.5 K/uL (0.7-4.9) 05/10/22 04:10 Absolute Monocytes 1.1 K/uL (0.1-1.3) 05/10/22 04:10 Absolute Eosinophils 0.1 K/uL (0-0.5) 05/10/22 04:10 Absolute Basophils 0.0 K/uL (0-0.5) 05/10/22 04:10 Sodium 137 mmol/L (136-145) 05/10/22 04:10 Potassium 3.6 mmol/L (3.5-5.1) 05/10/22 04:10 Chloride 103 mmol/L (98-107) 05/10/22 04:10 Carbon Dioxide 25 mmol/L (21-32) 05/10/22 04:10 Anion Gap 12.6 mEq/L (5.0-15.0) 05/10/22 04:10 BUN 22 mg/dL (7-18) H 05/10/22 04:10 Creatinine 0.66 mg/dL (0.55-1.3) 05/10/22 04:10 Est GFR (CKD-EPI) 97 ml/min (=/>90) 05/10/22 04:10 Glucose 202 mg/dL (74-106) H 05/10/22 04:10 POC Glucose 181 mg/dL (65-120) H 05/11/22 11:36 Hemoglobin A1c 7.8 % (4.2-6.3) H 05/09/22 04:06 Calcium 9.0 mg/dL (8.5-10.1) 05/10/22 04:10 Magnesium 2.1 mg/dL (1.8-2.4) 05/10/22 04:10 Albumin 3.1 g/dL (3.4-5.0) L 05/10/22 04:10 Prealbumin 13.5 mg/dL (20-40) L 05/10/22 04:10 Urine Color Yellow (Yellow) 05/07/22 23:10 Urine Clarity Cloudy (Clear) 05/07/22 23:10 Urine pH 6.0 (5.0-7.0) 05/07/22 23:10 Ur Specific Lindsay 1.015 (1.005-1.030) 05/07/22 23:10 Glucose (UA)(Auto) 3+ (Negative) H 05/07/22 23:10 Urine Ketones 2+ (Negative) H 05/07/22 23:10 Urine Blood 2+ (Negative) H 05/07/22 23:10 Urine Nitrite Negative (Negative) 05/07/22 23:10 Urine Bilirubin Negative (Negative) 05/07/22 23:10 Urine Urobilinogen 1.0 mg/dL (0.2-1.0) 05/07/22 23:10 Ur Leukocyte Esterase 1+ (Negative) H 05/07/22 23:10 Urine RBC 11-20 /HPF (None Seen) H 05/07/22 23:10 Urine Red Cell Clumps Cancelled 05/07/22 22:10 Urine WBC >50 /HPF (<5) H 05/07/22 23:10 Urine WBC Clumps Cancelled 05/07/22 22:10 Ur Squamous Epith Cells DRIVER MEDIC 05/07/22 23:10 U Non-Squamous Epi Cells <5 /HPF (None Seen) 05/07/22 23:10 Ur Transition Epith Cell Cancelled 05/07/22 22:10 Ur Renal Epithelial Cell Cancelled 05/07/22 22:10 Calcium Carbonate Cryst Cancelled 05/07/22 22:10 Calcium Oxalate Crystal Cancelled 05/07/22 22:10 Leucine Crystals Cancelled 05/07/22 22:10 Cystine Crystals Cancelled 05/07/22 22:10 Uric Acid Crystals Cancelled 05/07/22 22:10 Triple Phos Crystals Cancelled 05/07/22 22:10 Tyrosine Crystals Cancelled 05/07/22 22:10 Unidentified Crystals Cancelled 05/07/22 22:10 Amorphous Crystals Cancelled 05/07/22 22:10 Urine Bacteria <20 /HPF (<20) 05/07/22 23:10 Hyaline Casts Cancelled 05/07/22 22:10 Granular Casts Cancelled 05/07/22 22:10 Waxy Casts Cancelled 05/07/22 22:10 RBC Casts Cancelled 05/07/22 22:10 WBC Casts Cancelled 05/07/22 22:10 Urine Mucus Cancelled 05/07/22 22:10 Urine Trichomonas Cancelled 05/07/22 22:10 Ur Yeast w Hyphae Cancelled 05/07/22 22:10 Urine Yeast (Budding) Cancelled 05/07/22 22:10 Urine Sperm Cancelled 05/07/22 22:10 Ur Oval Fat Bodies Cancelled 05/07/22 22:10 Urine Total Protein Negative (Negative) 05/07/22 23:10 Urine Ascorbic Acid Cancelled 05/07/22 22:10 Urine Fat Cancelled 05/07/22 22:10 Weight: 179 lb Wound Present: Yes Closed Surgical Incision Present: No Negative Pressure Wound Therapy Present: No Physician Update: Labs were reviewed. Transfers, bed mobility SBA, supine to sit CGA, transfers bed to mod assistance. 10' with max assistance. WC 150' max assistance. Easy fatigue and aggitation. Max mykel, grooming, bathing, lower body dressing, foot wear. Min assistance for lower body dressing, Mod assistance with toilet and shower transfers. Very poor manager discovery. He is using a weighted fork foor feeding. 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 Please see the Rehabilitation Signature page for all necessary signatures.
[2022-05-11] MEDS: [UNRECOGNIZED DRUG - SUPPLY] TOP SCH (17:00)
[2022-05-11] MEDS: ROSUVASTATIN 10 MG TAB PO SCH (20:45)
[2022-05-11] MEDS: MELATONIN 5 MG TABLET PO SCH ×2 (20:45→21:00)
[2022-05-11] MEDS ORDERED: TRAZODONE 50 MG TABLET PO PRN (22:00)
[2022-05-12] MEDS: LEVOTHYROXINE SOD 0.05 MG TABLET PO SCH (06:30)
[2022-05-12] MEDS: INSULIN -REGULAR HUMAN 50 UNIT/0.5 ML ML SQ SCH ×4 (07:30→20:08)
[2022-05-12] MEDS: VITAMIN B COMPLEX 1 CAP PO SCH (07:44)
[2022-05-12] MEDS: PANTOPRAZOLE 40MG TABLET PO SCH (07:44)
[2022-05-12] MEDS: APIXABAN 5 MG TABLET PO SCH (07:44)
[2022-05-12] MEDS: TAMSULOSIN 0.4 MG SR CAP PO SCH ×2 (07:45→20:03)
[2022-05-12] MEDS: METOPROLOL TAR 50 MG TAB PO SCH ×2 (07:45→20:03)
[2022-05-12] MEDS: POTASSIUM CL SA 10 MEQ TAB PO SCH (07:45)
[2022-05-12] MEDS: RANOLAZINE 500 MG PO SCH (07:46)
[2022-05-12] MEDS: INSULIN GLARGINE 100 UNIT/ML SQ SCH (09:10)
[2022-05-12] MEDS: VITAMIN D 1000 UNIT TAB PO SCH (09:13)
[2022-05-12] MEDS: ROSUVASTATIN 10 MG TAB PO SCH (20:03)
[2022-05-12] MEDS: GABAPENTIN 300 MG CAP PO SCH (20:04)
[2022-05-12] MEDS: HYDROCODONE/APAP 7.5/325 MG TAB PO PRN (20:04)
[2022-05-12] MEDS: TRAZODONE 50 MG TABLET PO PRN (20:04)
[2022-05-13] MEDS: LEVOTHYROXINE SOD 0.05 MG TABLET PO SCH (06:25)
[2022-05-13] MEDS: PANTOPRAZOLE 40MG TABLET PO SCH (07:08)
[2022-05-13] MEDS: INSULIN -REGULAR HUMAN 50 UNIT/0.5 ML ML SQ SCH ×4 (07:30→21:01)
[2022-05-13] MEDS: RANOLAZINE 500 MG PO SCH (08:00)
[2022-05-13] MEDS: INSULIN GLARGINE 100 UNIT/ML SQ SCH (08:16)
[2022-05-13] MEDS: POTASSIUM CL SA 10 MEQ TAB PO SCH (08:17)
[2022-05-13] MEDS: VITAMIN B COMPLEX 1 CAP PO SCH (08:17)
[2022-05-13] MEDS: GABAPENTIN 300 MG CAP PO SCH ×2 (08:17→21:03)
[2022-05-13] MEDS: METOPROLOL TAR 50 MG TAB PO SCH ×2 (08:17→21:02)
[2022-05-13] MEDS: VITAMIN D 1000 UNIT TAB PO SCH (08:17)
[2022-05-13] MEDS: APIXABAN 5 MG TABLET PO SCH (08:18)
[2022-05-13] MEDS: TAMSULOSIN 0.4 MG SR CAP PO SCH ×2 (08:18→21:02)
[2022-05-13] MEDS: HYDROCODONE/APAP 7.5/325 MG TAB PO PRN ×2 (12:02→21:03)
[2022-05-13] MEDS ORDERED: POLYETHYL GLY 3350 17 GM/DOSE PO PRN (15:14)
[2022-05-13] MEDS: ROSUVASTATIN 10 MG TAB PO SCH (21:02)
[2022-05-13] MEDS: TRAZODONE 50 MG TABLET PO PRN (21:03)
[2022-05-14] MEDS: LEVOTHYROXINE SOD 0.05 MG TABLET PO SCH (06:34)
[2022-05-14] MEDS: INSULIN -REGULAR HUMAN 50 UNIT/0.5 ML ML SQ SCH ×4 (06:50→19:44)
[2022-05-14] MEDS: RANOLAZINE 500 MG PO SCH (08:00)
[2022-05-14] MEDS: PANTOPRAZOLE 40MG TABLET PO SCH (08:13)
[2022-05-14] MEDS: VITAMIN D 1000 UNIT TAB PO SCH (08:14)
[2022-05-14] MEDS: VITAMIN B COMPLEX 1 CAP PO SCH (08:14)
[2022-05-14] MEDS: APIXABAN 5 MG TABLET PO SCH (08:14)
[2022-05-14] MEDS: TAMSULOSIN 0.4 MG SR CAP PO SCH ×2 (08:14→19:43)
[2022-05-14] MEDS: GABAPENTIN 300 MG CAP PO SCH ×2 (08:14→19:44)
[2022-05-14] MEDS: METOPROLOL TAR 50 MG TAB PO SCH ×2 (08:14→19:44)
[2022-05-14] MEDS: POTASSIUM CL SA 10 MEQ TAB PO SCH (08:14)
[2022-05-14] MEDS: INSULIN GLARGINE 100 UNIT/ML SQ SCH (08:57)
[2022-05-14] MEDS: HYDROCODONE/APAP 7.5/325 MG TAB PO PRN ×2 (11:55→21:06)
[2022-05-14] MEDS: ROSUVASTATIN 10 MG TAB PO SCH (19:44)
[2022-05-14] MEDS: TRAZODONE 50 MG TABLET PO PRN (21:00)
[2022-05-15] MEDS: LEVOTHYROXINE SOD 0.05 MG TABLET PO SCH (06:26)
[2022-05-15] MEDS: PANTOPRAZOLE 40MG TABLET PO SCH (06:59)
[2022-05-15] MEDS: INSULIN -REGULAR HUMAN 50 UNIT/0.5 ML ML SQ SCH ×4 (07:30→20:45)
[2022-05-15] MEDS: INSULIN GLARGINE 100 UNIT/ML SQ SCH (07:42)
[2022-05-15] MEDS: GABAPENTIN 300 MG CAP PO SCH ×2 (07:43→20:45)
[2022-05-15] MEDS: POTASSIUM CL SA 10 MEQ TAB PO SCH (07:43)
[2022-05-15] MEDS: METOPROLOL TAR 50 MG TAB PO SCH ×2 (07:43→20:45)
[2022-05-15] MEDS: TAMSULOSIN 0.4 MG SR CAP PO SCH ×2 (07:43→20:45)
[2022-05-15] MEDS: VITAMIN B COMPLEX 1 CAP PO SCH (07:43)
[2022-05-15] MEDS: APIXABAN 5 MG TABLET PO SCH (07:43)
[2022-05-15] MEDS: VITAMIN D 1000 UNIT TAB PO SCH (07:44)
[2022-05-15] MEDS: RANOLAZINE 500 MG PO SCH (08:00)
--- NOTE | 2022-05-15 18:14 | R.PN ---
PROGRESS NOTES ENCOUNTER DATE AND TIME: 05/15/2022 18:10 (CDT) NAME ALTHEA TOVAR DATE OF : 1945 DATE OF ADMISSION: 05/07/2022 21:00 (CDT) GENERALIZED WEAKNESSCHIEF COMPLAINT: Fell on his face, debility with generalized weakness SUBJECTIVE: Pt denied any Shortness of Breath. Pt denied any depression. WBC 6.6, Hgb 13.8, HgA1c 7.8, glucose 175 to 196, prealbumin 13.5. Note serum alcohol was 297 on 05/04 when he was admitted to the acute care hospital after falling. Self-propelled wheelchair 150' with min assistance. Ambulated 150' with CGA using a rolling walker. VITAL SIGNS Temperature: 97.0 F SBP/DBP: 127/66 Pulse: 67 Resp: 16 MEDICATION ALLERGIES: No Known Drug Allergies (NKDA) ENVIRONMENTAL ALLERGIES: - Substance Allergies None Known - Other Allergies None Known NURSING: - Shower allowing shower PRECAUTIONS: - Fall Precaution Low bed TABS alarm Bed alarm - DVT Risk due to restricted mobility - Skin Breakdown Risk due to restricted mobility and age ACTIVITIES OOB only with supervision THERAPIES: - Dietary and Nutrition Adequate Nutrition. Nutritional Education. Nutritional Supplements. - Occupational Therapy Cognitive Retraining. Patient needs Occupational Therapy for a daily minimum of 1.5 hours at least 5 out of 7 days, to improve Activities of Daily Living, including: Eating, Grooming, Bathing, Dressing, Toileting, Toilet Transfers, Community Reintegration, Higher functional activities, Adaptive Equipme nt, Splinting, Household Tasks, and Other activities as determined. Visual Perceptual Training. - Physical Therapy Patient needs Physical Therapy for a daily minimum of 1.5 hours at least 5 out of 7 days, to improve: Mobility, Strengthening, Transfers, Stretching, ROM, Endurance, Ability to manage stairs, Gait, and Balance. PHYSICAL EXAM - Gen Alert and awake Lying in bed No apparent distress Oriented to: person, time, and place - Skin No breakdown Bilateral facial bruising, protective dressing on nose bridge - Eyes Hematoma around both eyes with injected left sclera. - Neck Decreased range of motion in all directions. - CVS RRR - Chest No abnormalities - Resp No wheezing - Abd Soft - GI Non distended Deferred - No abnormalities - Ext Mild bilateral lower extremity edema. 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 - Neuro No focal deficits. Decreased sensation in both hands with cervical radicular pain into both hands. - Psych No abnormalities ASSESSMENT: Pt. is a 76 yo male of unknown race.On 05/06/[address] [facility] with diagn osis GENERALIZED WEAKNESS.His impairment category is Debility 16 - Debility (16).Pre-morbidly, Pt. w as independent/mod-I in Locomotion and Self-Care; and he had good Safety Awareness, Balance, Transfer s Control, and Endurance.Currently, he has deficits of Locomotion, Safety Awareness, Transfers Contro l, Balance, Self-Care, and Endurance.Pt. is now referred to [facility] for acu te in-patient rehabilitation in order to maximize patient's functional independence in activities of daily living, strength, ROM, and mobility.- Rehab Goal Patient has realistic goal of being discharged at assistance level 6-Harsh to reside at Home with Fam davion/Relatives. MDM/PLAN: - Physical Therapy Gait dysfunction - to improve, our physical therapists will perform initial evaluation of pt's statu s upon admission and devise an individualized program for Gait Training, and Wheel Chair mobility Inability to transfer - to improve, our physical therapists will perform initial evaluation of pt's status upon admission and devise an individualized program for Bed mobility Need for home safety evaluation - to improve, our physical therapists will perform initial evaluatio n of pt's status upon admission and devise an individualized program for Home Evaluation Need in caregiver upon discharge - to improve, our physical therapists will perform initial evaluati on of pt's status upon admission and devise an individualized program for Caregiver Training New precaution - to improve, our physical therapists will perform initial evaluation of pt's status upon admission and devise an individualized program for Patient precaution education Edema - to improve, our physical therapists will perform initial evaluation of pt's status upon admi ssion and devise an individualized program for Elevation Training, and Lymphedema Therapy Poor balance - to improve, our physical therapists will perform initial evaluation of pt's status up on admission and devise an individualized program for Balance Training Poor endurance - to improve, our physical therapists will perform initial evaluation of pt's status upon admission and devise an individualized program for Endurance Training Weakness - to improve, our physical therapists will perform initial evaluation of pt's status upon a dmission and devise an individualized program for Aquatic Therapy, Neuromuscular Reeducation, and Str engthening Achieving independence - to improve, our physical therapists will perform initial evaluation of pt's status upon admission and devise an individualized program for Community Reintegration Activities - Occupational Therapy ADL deficits - to improve, our occupation therapists will perform initial evaluation of pt's status upon admission and devise an individualized program for Bathing, Bed mobility, Community Reintegratio n, Cooking, Dressing, Eating, Fine Motor Skills, Grooming, Homemaking, Kitchen Mobility, Laundry, Pat ient Education, Safety Awareness, Splinting - Positioning, Transfers(Toilet, Tub, Shower), and Wheel Chair Management Need for senior resident care director - to improve, our occupation therapists will perform initial evaluation of pt's status upon admission and devise an individualized program for Caregiver Training Weakness - to improve, our occupation therapists will perform initial evaluation of pt's status upon admission and devise an individualized program for Aquatic Therapy, Balance, Endurance, UE ROM, and UE strengthening - Other See attached MAR (Medication Administration Record) - Diet Type Continue Regular - Diet - Liquid Texture Continue Regular - Tube Feed Continue N/A - DVT Risk due to restricted mobility - Skin Breakdown Risk due to restricted mobility and age - Fall Precaution Low bed TABS alarm Bed alarm - Diet - Solid Texture Continue Regular - Shower allowing shower FUNCTIONAL STATUS: UPDATED AT WEEKLY TEAM CONFERENCE - Bladder Same accident frequency: 7-Ind - No accidents in the past 7 days - Bowel Same accident frequency: 7-Ind - No accidents in the past 7 days - Walking Same score based on distance walked: 0(N/A) - Wheelchair Same score based on distance traveled: 0(N/A) FUNCTIONAL STATUS: - Self-Care A. Eating Harsh B. Grooming Harsh C. Bathing modA D. Dressing - Upper Junior E. Dressing - Lower modA F. Toileting sup - Sphincter Control G. Bladder control Harsh H. Bowel control Harsh - Transfers Control I. Bed/Chair/Wheelchair modA J. Toilet maxA K. Tub/Shower maxA - Locomotion L. Walk/Wheelchair (B) maxA M. Stairs ADNO - Communication N. Comprehension (B) Harsh O. Expression (B) Harsh - Social Cognition P. Social Interaction Harsh Q. Problem Solving sup R. Memory Harsh - Endurance Fair - Balance Fair - Safety Awareness Fair QI SCORES: - Self-Care A. Eating 04-Supervision or touching assistance B. Oral hygiene 04-Supervision or touching assistance C. Toileting hygiene 03-Partial/moderate assistance E. Shower/bathe self 03-Partial/moderate assistance F. Upper body dressing 03-Partial/moderate assistance G. Lower body dressing 03-Partial/moderate assistance H. Putting on/taking off footwear 03-Partial/moderate assistance - Mobility A. Roll left and right 03-Partial/moderate assistance B. Sit to lying 03-Partial/moderate assistance C. Lying to sitting on side of bed 03-Partial/moderate assistance D. Sit to stand 03-Partial/moderate assistance E. Chair/[id number] transfer 03-Partial/moderate assistance F. Toilet transfer 03-Partial/moderate assistance G. Car transfer 88-Not attempted due to medical condition or safety concerns I. Walk 10 feet 88-Not attempted due to medical condition or safety concerns J. Walk 50 feet with two turns 88-Not attempted due to medical condition or safety concerns K. Walk 150 feet 88-Not attempted due to medical condition or safety concerns L. Walking 10 feet on uneven surfaces 88-Not attempted due to medical condition or safety concerns M. 1 step (curb) 88-Not attempted due to medical condition or safety concerns N. 4 steps 88-Not attempted due to medical condition or safety concerns O. 12 steps 88-Not attempted due to medical condition or safety concerns P. Picking up object 88-Not attempted due to medical condition or safety concerns R. Wheel 50 feet with two turns 09-Not applicable S. Wheel 150 feet 09-Not applicable - Bladder and Bowel Bladder continence 0-Always continent Bowel continence 0-Always continent - Endurance Fair - Balance Poor - Safety Awareness Poor CURRENT FUNC. DEFICITS: Self-Care, Mobility, Endurance, Balance, and Safety Awareness SIGNATURE PANEL: (CDT)
[2022-05-15] MEDS ORDERED: DEXTROSE 10%-WATER 125 ML IV PRN (18:24)
[2022-05-15] MEDS: ROSUVASTATIN 10 MG TAB PO SCH (20:45)
[2022-05-15] MEDS: TRAZODONE 50 MG TABLET PO PRN (21:00)
[2022-05-16] MEDS: LEVOTHYROXINE SOD 0.05 MG TABLET PO SCH (06:43)
[2022-05-16] MEDS: PANTOPRAZOLE 40MG TABLET PO SCH (06:44)
[2022-05-16] MEDS: INSULIN -REGULAR HUMAN 50 UNIT/0.5 ML ML SQ SCH ×4 (07:30→20:53)
[2022-05-16] MEDS: RANOLAZINE 500 MG PO SCH ×2 (08:00→20:53)
[2022-05-16] MEDS: INSULIN GLARGINE 100 UNIT/ML SQ SCH (08:08)
[2022-05-16] MEDS: POTASSIUM CL SA 10 MEQ TAB PO SCH (08:09)
[2022-05-16] MEDS: TAMSULOSIN 0.4 MG SR CAP PO SCH ×2 (08:09→20:52)
[2022-05-16] MEDS: VITAMIN B COMPLEX 1 CAP PO SCH (08:09)
[2022-05-16] MEDS: METOPROLOL TAR 50 MG TAB PO SCH ×2 (08:09→20:52)
[2022-05-16] MEDS: VITAMIN D 1000 UNIT TAB PO SCH (08:09)
[2022-05-16] MEDS: GABAPENTIN 300 MG CAP PO SCH ×2 (08:10→20:52)
[2022-05-16] MEDS: APIXABAN 5 MG TABLET PO SCH (08:10)
--- NOTE | 2022-05-16 19:12 | R.PN ---
PROGRESS NOTES ENCOUNTER DATE AND TIME: 05/16/2022 19:10 (CDT) NAME ALTHEA TOVAR DATE OF : 1945 DATE OF ADMISSION: 05/07/2022 21:00 (CDT) GENERALIZED WEAKNESSCHIEF COMPLAINT: Fell on his face, debility with generalized weakness SUBJECTIVE: Pt denied any Shortness of Breath. Pt denied any depression. WBC 6.6, Hgb 13.8, HgA1c 7.8, glucose 175 to 196, prealbumin 13.5. Note serum alcohol was 297 on 05/04 when he was admitted to the acute care hospital after falling. Self-propelled wheelchair 150' with contact guard assistance. Ambulated 175' with CGA using a rolling walker. VITAL SIGNS Temperature: 98.2 F SBP/DBP: 125/61 Pulse: 80 Resp: 16 MEDICATION ALLERGIES: No Known Drug Allergies (NKDA) ENVIRONMENTAL ALLERGIES: - Substance Allergies None Known - Other Allergies None Known NURSING: - Shower allowing shower PRECAUTIONS: - Fall Precaution Low bed TABS alarm Bed alarm - DVT Risk due to restricted mobility - Skin Breakdown Risk due to restricted mobility and age ACTIVITIES OOB only with supervision THERAPIES: - Dietary and Nutrition Adequate Nutrition. Nutritional Education. Nutritional Supplements. - Occupational Therapy Cognitive Retraining. Patient needs Occupational Therapy for a daily minimum of 1.5 hours at least 5 out of 7 days, to improve Activities of Daily Living, including: Eating, Grooming, Bathing, Dressing, Toileting, Toilet Transfers, Community Reintegration, Higher functional activities, Adaptive Equipme nt, Splinting, Household Tasks, and Other activities as determined. Visual Perceptual Training. - Physical Therapy Patient needs Physical Therapy for a daily minimum of 1.5 hours at least 5 out of 7 days, to improve: Mobility, Strengthening, Transfers, Stretching, ROM, Endurance, Ability to manage stairs, Gait, and Balance. PHYSICAL EXAM - Gen Alert and awake Lying in bed No apparent distress Oriented to: person, time, and place - Skin No breakdown Bilateral facial bruising, protective dressing on nose bridge - Eyes Hematoma around both eyes with injected left sclera. - Neck Decreased range of motion in all directions. - CVS RRR - Chest No abnormalities - Resp No wheezing - Abd Soft - GI Non distended Deferred - No abnormalities - Ext Mild bilateral lower extremity edema. - MSK 4/5 weakness in both lower extremities and 4/5 bilateral hand corrective and manual arts therapist. - Neuro No focal deficits. Decreased sensation in both hands with cervical radicular pain into both hands. - Psych No abnormalities ASSESSMENT: Pt. is a 76 yo male of unknown race.On 05/06/2022 he was admitted to [facility] with diagn osis GENERALIZED WEAKNESS.His impairment category is Debility 16 - Debility (16).Pre-morbidly, Pt. w as independent/mod-I in Locomotion and Self-Care; and he had good Safety Awareness, Balance, Transfer s Control, and Endurance.Currently, he has deficits of Locomotion, Safety Awareness, Transfers Contro l, Balance, Self-Care, and Endurance.Pt. is now referred to [facility] for acu te in-patient rehabilitation in order to maximize patient's functional independence in activities of daily living, strength, ROM, and mobility.- Rehab Goal Patient has realistic goal of being discharged at assistance level 6-Harsh to reside at Home with Fam davion/Relatives. MDM/PLAN: - Physical Therapy Gait dysfunction - to improve, our physical therapists will perform initial evaluation of pt's statu s upon admission and devise an individualized program for Gait Training, and Wheel Chair mobility Inability to transfer - to improve, our physical therapists will perform initial evaluation of pt's status upon admission and devise an individualized program for Bed mobility Need for home safety evaluation - to improve, our physical therapists will perform initial evaluatio n of pt's status upon admission and devise an individualized program for Home Evaluation Need in caregiver upon discharge - to improve, our physical therapists will perform initial evaluati on of pt's status upon admission and devise an individualized program for Caregiver Training New precaution - to improve, our physical therapists will perform initial evaluation of pt's status upon admission and devise an individualized program for Patient precaution education Edema - to improve, our physical therapists will perform initial evaluation of pt's status upon admi ssion and devise an individualized program for Elevation Training, and Lymphedema Therapy Poor balance - to improve, our physical therapists will perform initial evaluation of pt's status up on admission and devise an individualized program for Balance Training Poor endurance - to improve, our physical therapists will perform initial evaluation of pt's status upon admission and devise an individualized program for Endurance Training Weakness - to improve, our physical therapists will perform initial evaluation of pt's status upon a dmission and devise an individualized program for Aquatic Therapy, Neuromuscular Reeducation, and Str engthening Achieving independence - to improve, our physical therapists will perform initial evaluation of pt's status upon admission and devise an individualized program for Community Reintegration Activities - Occupational Therapy ADL deficits - to improve, our occupation therapists will perform initial evaluation of pt's status upon admission and devise an individualized program for Bathing, Bed mobility, Community Reintegratio n, Cooking, Dressing, Eating, Fine Motor Skills, Grooming, Homemaking, Kitchen Mobility, Laundry, Pat ient Education, Safety Awareness, Splinting - Positioning, Transfers(Toilet, Tub, Shower), and Wheel Chair Management Need for urgent care nurse practitioner - to improve, our occupation therapists will perform initial evaluation of pt's status upon admission and devise an individualized program for Caregiver Training Weakness - to improve, our occupation therapists will perform initial evaluation of pt's status upon admission and devise an individualized program for Aquatic Therapy, Balance, Endurance, UE ROM, and UE strengthening - Other See attached MAR (Medication Administration Record) - Diet Type Continue Regular - Diet - Liquid Texture Continue Regular - Tube Feed Continue N/A - DVT Risk due to restricted mobility - Skin Breakdown Risk due to restricted mobility and age - Fall Precaution Low bed TABS alarm Bed alarm - Diet - Solid Texture Continue Regular - Shower allowing shower FUNCTIONAL STATUS: UPDATED AT WEEKLY TEAM CONFERENCE - Bladder Same accident frequency: 7-Ind - No accidents in the past 7 days - Bowel Same accident frequency: 7-Ind - No accidents in the past 7 days - Walking Same score based on distance walked: 0(N/A) - Wheelchair Same score based on distance traveled: 0(N/A) FUNCTIONAL STATUS: - Self-Care A. Eating Harsh B. Grooming Harsh C. Bathing modA D. Dressing - Upper Junior E. Dressing - Lower modA F. Toileting sup - Sphincter Control G. Bladder control Harsh H. Bowel control Harsh - Transfers Control I. Bed/Chair/Wheelchair modA J. Toilet maxA K. Tub/Shower maxA - Locomotion L. Walk/Wheelchair (B) maxA M. Stairs ADNO - Communication N. Comprehension (B) Harsh O. Expression (B) Harsh - Social Cognition P. Social Interaction Harsh Q. Problem Solving sup R. Memory Harsh - Endurance Fair - Balance Fair - Safety Awareness Fair QI SCORES: - Self-Care A. Eating 04-Supervision or touching assistance B. Oral hygiene 04-Supervision or touching assistance C. Toileting hygiene 03-Partial/moderate assistance E. Shower/bathe self 03-Partial/moderate assistance F. Upper body dressing 03-Partial/moderate assistance G. Lower body dressing 03-Partial/moderate assistance H. Putting on/taking off footwear 03-Partial/moderate assistance - Mobility A. Roll left and right 03-Partial/moderate assistance B. Sit to lying 03-Partial/moderate assistance C. Lying to sitting on side of bed 03-Partial/moderate assistance D. Sit to stand 03-Partial/moderate assistance E. Chair/[id number]-[id number] transfer 03-Partial/moderate assistance F. Toilet transfer 03-Partial/moderate assistance G. Car transfer 88-Not attempted due to medical condition or safety concerns I. Walk 10 feet 88-Not attempted due to medical condition or safety concerns J. Walk 50 feet with two turns 88-Not attempted due to medical condition or safety concerns K. Walk 150 feet 88-Not attempted due to medical condition or safety concerns L. Walking 10 feet on uneven surfaces 88-Not attempted due to medical condition or safety concerns M. 1 step (curb) 88-Not attempted due to medical condition or safety concerns N. 4 steps 88-Not attempted due to medical condition or safety concerns O. 12 steps 88-Not attempted due to medical condition or safety concerns P. Picking up object 88-Not attempted due to medical condition or safety concerns R. Wheel 50 feet with two turns 09-Not applicable S. Wheel 150 feet 09-Not applicable - Bladder and Bowel Bladder continence 0-Always continent Bowel continence 0-Always continent - Endurance Fair - Balance Poor - Safety Awareness Poor CURRENT FUNC. DEFICITS: Self-Care, Mobility, Endurance, Balance, and Safety Awareness SIGNATURE PANEL: (CDT)
[2022-05-16] MEDS ORDERED: HOME MED 1 EA UNK PO SCH (20:00)
[2022-05-16] MEDS: TRAZODONE 50 MG TABLET PO PRN (20:52)
[2022-05-16] MEDS: ROSUVASTATIN 10 MG TAB PO SCH (20:52)
[2022-05-16] MEDS: HYDROCODONE/APAP 7.5/325 MG TAB PO PRN (20:54)
[2022-05-17 04:28] LABS: Absolute Lymphocytes (CBC) 1.6 K/uL (0.7-4.9); Hematocrit 40.3 % (39.6-49.0); Lymphocytes % 22.6 % (15.3-44.8); MCV 95.2 fL (80-100); MPV 7.8 fL (7.6-11.3); RBC Red Blood Cell Count 4.24 M/uL (4.33-5.43)
[2022-05-17 04:50] LABS: Albumin 2.9 g/dL (3.4-5.0); Potassium 3.8 mmol/L (3.5-5.1); Prealbumin 11.4 mg/dL (20-40)
[2022-05-17 05:01] LABS: Blood Morphology Comment NOT SEEN (NOT SEEN); Platelet Estimate ADEQ
[2022-05-17] MEDS: APIXABAN 5 MG TABLET PO SCH (07:36)
[2022-05-17] MEDS: LEVOTHYROXINE SOD 0.05 MG TABLET PO SCH (07:36)
[2022-05-17] MEDS: PANTOPRAZOLE 40MG TABLET PO SCH (07:36)
[2022-05-17] MEDS: INSULIN -REGULAR HUMAN 50 UNIT/0.5 ML ML SQ SCH ×4 (08:40→20:53)
[2022-05-17] MEDS: RANOLAZINE 500 MG PO SCH ×2 (08:41→20:52)
[2022-05-17] MEDS: INSULIN GLARGINE 100 UNIT/ML SQ SCH (08:41)
[2022-05-17] MEDS: POTASSIUM CL SA 10 MEQ TAB PO SCH (08:43)
[2022-05-17] MEDS: VITAMIN B COMPLEX 1 CAP PO SCH (08:43)
[2022-05-17] MEDS: GABAPENTIN 300 MG CAP PO SCH ×2 (08:43→20:52)
[2022-05-17] MEDS: TAMSULOSIN 0.4 MG SR CAP PO SCH ×2 (08:43→20:52)
[2022-05-17] MEDS: VITAMIN D 1000 UNIT TAB PO SCH (08:43)
[2022-05-17] MEDS: METOPROLOL TAR 50 MG TAB PO SCH ×2 (10:10→20:00)
--- NOTE | 2022-05-17 18:45 | R.PN ---
PROGRESS NOTES ENCOUNTER DATE AND TIME: 05/17/2022 18:41 (CDT) NAME ALTHEA TOVAR DATE OF : 1945 DATE OF ADMISSION: 05/07/2022 21:00 (CDT) GENERALIZED WEAKNESSCHIEF COMPLAINT: Fell on his face, debility with generalized weakness SUBJECTIVE: Pt denied any Shortness of Breath. Pt denied any depression. CBC with diff is essentially normal. HgA1c 7.8, glucose 220 to 245, prealbumin 11.4. Note serum alco hol was 297 on 05/04/22 when he was admitted to the acute care hospital after falling. Ambulated 190' with CGA using a rolling walker. VITAL SIGNS Temperature: 97.8 F SBP/DBP: 117/57 Pulse: 65 Resp: 16 MEDICATION ALLERGIES: No Known Drug Allergies (NKDA) ENVIRONMENTAL ALLERGIES: - Substance Allergies None Known - Other Allergies None Known NURSING: - Shower allowing shower PRECAUTIONS: - Fall Precaution Low bed TABS alarm Bed alarm - DVT Risk due to restricted mobility - Skin Breakdown Risk due to restricted mobility and age ACTIVITIES OOB only with supervision THERAPIES: - Dietary and Nutrition Adequate Nutrition. Nutritional Education. Nutritional Supplements. - Occupational Therapy Cognitive Retraining. Patient needs Occupational Therapy for a daily minimum of 1.5 hours at least 5 out of 7 days, to improve Activities of Daily Living, including: Eating, Grooming, Bathing, Dressing, Toileting, Toilet Transfers, Community Reintegration, Higher functional activities, Adaptive Equipme nt, Splinting, Household Tasks, and Other activities as determined. Visual Perceptual Training. - Physical Therapy Patient needs Physical Therapy for a daily minimum of 1.5 hours at least 5 out of 7 days, to improve: Mobility, Strengthening, Transfers, Stretching, ROM, Endurance, Ability to manage stairs, Gait, and Balance. PHYSICAL EXAM - Gen Alert and awake Lying in bed No apparent distress Oriented to: person, time, and place - Skin No breakdown Bilateral facial bruising, protective dressing on nose bridge - Eyes Hematoma around both eyes with injected left sclera. - Neck Decreased range of motion in all directions. - CVS RRR - Chest No abnormalities - Resp No wheezing - Abd Soft - GI Non distended Deferred - No abnormalities - Ext Mild bilateral lower extremity edema. - MSK 4/5 weakness in both lower extremities and 4/5 bilateral hand candle maker. - Neuro No focal deficits. Decreased sensation in both hands with cervical radicular pain into both hands. - Psych No abnormalities ASSESSMENT: Pt. is a 76 yo male of unknown race.On 05/06/2022 he was admitted to [facility] with diagn osis GENERALIZED WEAKNESS.His impairment category is Debility 16 - Debility (16).Pre-morbidly, Pt. w as independent/mod-I in Locomotion and Self-Care; and he had good Safety Awareness, Balance, Transfer s Control, and Endurance.Currently, he has deficits of Locomotion, Safety Awareness, Transfers Contro l, Balance, Self-Care, and Endurance.Pt. is now referred to [facility] for acu te in-patient rehabilitation in order to maximize patient's functional independence in activities of daily living, strength, ROM, and mobility.- Rehab Goal Patient has realistic goal of being discharged at assistance level 6-Harsh to reside at Home with Fam davion/Relatives. MDM/PLAN: - Physical Therapy Gait dysfunction - to improve, our physical therapists will perform initial evaluation of pt's statu s upon admission and devise an individualized program for Gait Training, and Wheel Chair mobility Inability to transfer - to improve, our physical therapists will perform initial evaluation of pt's status upon admission and devise an individualized program for Bed mobility Need for home safety evaluation - to improve, our physical therapists will perform initial evaluatio n of pt's status upon admission and devise an individualized program for Home Evaluation Need in caregiver upon discharge - to improve, our physical therapists will perform initial evaluati on of pt's status upon admission and devise an individualized program for Caregiver Training New precaution - to improve, our physical therapists will perform initial evaluation of pt's status upon admission and devise an individualized program for Patient precaution education Edema - to improve, our physical therapists will perform initial evaluation of pt's status upon admi ssion and devise an individualized program for Elevation Training, and Lymphedema Therapy Poor balance - to improve, our physical therapists will perform initial evaluation of pt's status up on admission and devise an individualized program for Balance Training Poor endurance - to improve, our physical therapists will perform initial evaluation of pt's status upon admission and devise an individualized program for Endurance Training Weakness - to improve, our physical therapists will perform initial evaluation of pt's status upon a dmission and devise an individualized program for Aquatic Therapy, Neuromuscular Reeducation, and Str engthening Achieving independence - to improve, our physical therapists will perform initial evaluation of pt's status upon admission and devise an individualized program for Community Reintegration Activities - Occupational Therapy ADL deficits - to improve, our occupation therapists will perform initial evaluation of pt's status upon admission and devise an individualized program for Bathing, Bed mobility, Community Reintegratio n, Cooking, Dressing, Eating, Fine Motor Skills, Grooming, Homemaking, Kitchen Mobility, Laundry, Pat ient Education, Safety Awareness, Splinting - Positioning, Transfers(Toilet, Tub, Shower), and Wheel Chair Management Need for patient care representative - to improve, our occupation therapists will perform initial evaluation of pt's status upon admission and devise an individualized program for Caregiver Training Weakness - to improve, our occupation therapists will perform initial evaluation of pt's status upon admission and devise an individualized program for Aquatic Therapy, Balance, Endurance, UE ROM, and UE strengthening - Other See attached MAR (Medication Administration Record) - Diet Type Continue Regular - Diet - Liquid Texture Continue Regular - Tube Feed Continue N/A - DVT Risk due to restricted mobility - Skin Breakdown Risk due to restricted mobility and age - Fall Precaution Low bed TABS alarm Bed alarm - Diet - Solid Texture Continue Regular - Shower allowing shower FUNCTIONAL STATUS: UPDATED AT WEEKLY TEAM CONFERENCE - Bladder Same accident frequency: 7-Ind - No accidents in the past 7 days - Bowel Same accident frequency: 7-Ind - No accidents in the past 7 days - Walking Same score based on distance walked: 0(N/A) - Wheelchair Same score based on distance traveled: 0(N/A) FUNCTIONAL STATUS: - Self-Care A. Eating Harsh B. Grooming Harsh C. Bathing modA D. Dressing - Upper Junior E. Dressing - Lower modA F. Toileting sup - Sphincter Control G. Bladder control Harsh H. Bowel control Harsh - Transfers Control I. Bed/Chair/Wheelchair modA J. Toilet maxA K. Tub/Shower maxA - Locomotion L. Walk/Wheelchair (B) maxA M. Stairs ADNO - Communication N. Comprehension (B) Harsh O. Expression (B) Harsh - Social Cognition P. Social Interaction Harsh Q. Problem Solving sup R. Memory Harsh - Endurance Fair - Balance Fair - Safety Awareness Fair QI SCORES: - Self-Care A. Eating 04-Supervision or touching assistance B. Oral hygiene 04-Supervision or touching assistance C. Toileting hygiene 03-Partial/moderate assistance E. Shower/bathe self 03-Partial/moderate assistance F. Upper body dressing 03-Partial/moderate assistance G. Lower body dressing 03-Partial/moderate assistance H. Putting on/taking off footwear 03-Partial/moderate assistance - Mobility A. Roll left and right 03-Partial/moderate assistance B. Sit to lying 03-Partial/moderate assistance C. Lying to sitting on side of bed 03-Partial/moderate assistance D. Sit to stand 03-Partial/moderate assistance E. Chair/[id number] transfer 03-Partial/moderate assistance F. Toilet transfer 03-Partial/moderate assistance G. Car transfer 88-Not attempted due to medical condition or safety concerns I. Walk 10 feet 88-Not attempted due to medical condition or safety concerns J. Walk 50 feet with two turns 88-Not attempted due to medical condition or safety concerns K. Walk 150 feet 88-Not attempted due to medical condition or safety concerns L. Walking 10 feet on uneven surfaces 88-Not attempted due to medical condition or safety concerns M. 1 step (curb) 88-Not attempted due to medical condition or safety concerns N. 4 steps 88-Not attempted due to medical condition or safety concerns O. 12 steps 88-Not attempted due to medical condition or safety concerns P. Picking up object 88-Not attempted due to medical condition or safety concerns R. Wheel 50 feet with two turns 09-Not applicable S. Wheel 150 feet 09-Not applicable - Bladder and Bowel Bladder continence 0-Always continent Bowel continence 0-Always continent - Endurance Fair - Balance Poor - Safety Awareness Poor CURRENT FUNC. DEFICITS: Self-Care, Mobility, Endurance, Balance, and Safety Awareness SIGNATURE PANEL: (CDT)
[2022-05-17] MEDS: ROSUVASTATIN 10 MG TAB PO SCH (20:52)
[2022-05-17] MEDS: TRAZODONE 50 MG TABLET PO PRN (20:52)
[2022-05-17] MEDS: HYDROCODONE/APAP 7.5/325 MG TAB PO PRN (20:55)
[2022-05-18] MEDS: APIXABAN 5 MG TABLET PO SCH (07:20)
[2022-05-18] MEDS: LEVOTHYROXINE SOD 0.05 MG TABLET PO SCH (07:20)
[2022-05-18] MEDS: PANTOPRAZOLE 40MG TABLET PO SCH (07:20)
[2022-05-18] MEDS: POTASSIUM CL SA 10 MEQ TAB PO SCH (07:46)
[2022-05-18] MEDS: GABAPENTIN 300 MG CAP PO SCH ×2 (07:46→20:43)
[2022-05-18] MEDS: TAMSULOSIN 0.4 MG SR CAP PO SCH ×2 (07:47→20:42)
[2022-05-18] MEDS: VITAMIN D 1000 UNIT TAB PO SCH (07:47)
[2022-05-18] MEDS: INSULIN GLARGINE 100 UNIT/ML SQ SCH (07:47)
[2022-05-18] MEDS: VITAMIN B COMPLEX 1 CAP PO SCH (07:47)
[2022-05-18] MEDS: INSULIN -REGULAR HUMAN 50 UNIT/0.5 ML ML SQ SCH ×4 (07:48→20:43)
[2022-05-18] MEDS: RANOLAZINE 500 MG PO SCH ×2 (08:23→21:52)
[2022-05-18] MEDS: METOPROLOL TAR 50 MG TAB PO SCH ×2 (08:50→20:00)
--- NOTE | 2022-05-18 09:55 | P.RH.PN ---
Estimated Length of Stay: 16 Expected Discharge Date: 05/23/22 Discharge Disposition Plan: Home Family Support: Yes Usp Goal: Mobility, Transfers, Self Care Vital Signs: Last Vital Signs Temp 97.8 F 05/18/22 07:42 Pulse 75 05/18/22 08:51 Resp 18 05/18/22 07:42 BP 124/62 05/18/22 08:51 Pulse Ox 97 05/18/22 07:42 Laboratory: Laboratory Last Values WBC 7.30 K/uL (4.3-10.9) 05/17/22 04:10 RBC 4.24 M/uL (4.33-5.43) L 05/17/22 04:10 Hgb 13.6 g/dL (13.6-17.9) 05/17/22 04:10 Hct 40.3 % (39.6-49.0) 05/17/22 04:10 MCV 95.2 fL (80-100) 05/17/22 04:10 MCH 32.1 pg (27.0-35.0) 05/17/22 04:10 MCHC 33.7 g/dL (32.0-36.0) 05/17/22 04:10 RDW 13.9 % (12.1-15.2) 05/17/22 04:10 Plt Count 222 K/uL (152-406) D 05/17/22 04:10 MPV 7.8 fL (7.6-11.3) 05/17/22 04:10 Neutrophils % 54.9 % (41.7-73.7) 05/17/22 04:10 Lymphocytes % 22.6 % (15.3-44.8) 05/17/22 04:10 Monocytes % 19.7 % (3.3-12.3) H 05/17/22 04:10 Eosinophils % 1.8 % (0-4.4) 05/17/22 04:10 Basophils % 1.0 % (0-1.3) 05/17/22 04:10 Absolute Neutrophils 4.0 K/uL (1.8-8.0) 05/17/22 04:10 Segmented Neutrophils 64 % (40-80) 05/17/22 04:10 Absolute Lymphocytes 1.6 K/uL (0.7-4.9) 05/17/22 04:10 Lymphocytes 16 % (15-42) 05/17/22 04:10 Monocytes 11 % (0-10) H 05/17/22 04:10 Absolute Monocytes 1.4 K/uL (0.1-1.3) H 05/17/22 04:10 Eosinophils 2 % (0-3) 05/17/22 04:10 Absolute Eosinophils 0.1 K/uL (0-0.5) 05/17/22 04:10 Basophils 2 % (0-1) H 05/17/22 04:10 Absolute Basophils 0.1 K/uL (0-0.5) 05/17/22 04:10 Reactive Lymphocytes 5 % 05/17/22 04:10 Platelet Estimate Adeq 05/17/22 04:10 Morphology Comment Not seen (NOT SEEN) 05/17/22 04:10 Sodium 139 mmol/L (136-145) 05/17/22 04:10 Potassium 3.8 mmol/L (3.5-5.1) 05/17/22 04:10 Chloride 107 mmol/L (98-107) 05/17/22 04:10 Carbon Dioxide 26 mmol/L (21-32) 05/17/22 04:10 Anion Gap 9.8 mEq/L (5.0-15.0) 05/17/22 04:10 BUN 17 mg/dL (7-18) 05/17/22 04:10 Creatinine 0.88 mg/dL (0.55-1.3) 05/17/22 04:10 Est GFR (CKD-EPI) 89 ml/min (=/>90) L 05/17/22 04:10 Glucose 245 mg/dL (74-106) H 05/17/22 04:10 POC Glucose 218 mg/dL (65-120) H 05/18/22 07:22 Hemoglobin A1c 7.8 % (4.2-6.3) H 05/09/22 04:06 Calcium 9.0 mg/dL (8.5-10.1) 05/17/22 04:10 Magnesium 2.0 mg/dL (1.8-2.4) 05/17/22 04:10 Albumin 2.9 g/dL (3.4-5.0) L 05/17/22 04:10 Prealbumin 11.4 mg/dL (20-40) L 05/17/22 04:10 Urine Color Yellow (Yellow) 05/07/22 23:10 Urine Clarity Cloudy (Clear) 05/07/22 23:10 Urine pH 6.0 (5.0-7.0) 05/07/22 23:10 Ur Specific [place] 1.015 (1.005-1.030) 05/07/22 23:10 Glucose (UA)(Auto) 3+ (Negative) H 05/07/22 23:10 Urine Ketones 2+ (Negative) H 05/07/22 23:10 Urine Blood 2+ (Negative) H 05/07/22 23:10 Urine Nitrite Negative (Negative) 05/07/22 23:10 Urine Bilirubin Negative (Negative) 05/07/22 23:10 Urine Urobilinogen 1.0 mg/dL (0.2-1.0) 05/07/22 23:10 Ur Leukocyte Esterase 1+ (Negative) H 05/07/22 23:10 Urine RBC 11-20 /HPF (None Seen) H 05/07/22 23:10 Urine Red Cell Clumps Cancelled 05/07/22 22:10 Urine WBC >50 /HPF (<5) H 05/07/22 23:10 Urine WBC Clumps Cancelled 05/07/22 22:10 Ur Squamous Epith Cells METAL DRILL PRESS OPERATOR 05/07/22 23:10 U Non-Squamous Epi Cells <5 /HPF (None Seen) 05/07/22 23:10 Ur Transition Epith Cell Cancelled 05/07/22 22:10 Ur Renal Epithelial Cell Cancelled 05/07/22 22:10 Calcium Carbonate Cryst Cancelled 05/07/22 22:10 Calcium Oxalate Crystal Cancelled 05/07/22 22:10 Leucine Crystals Cancelled 05/07/22 22:10 Cystine Crystals Cancelled 05/07/22 22:10 Uric Acid Crystals Cancelled 05/07/22 22:10 Triple Phos Crystals Cancelled 05/07/22 22:10 Tyrosine Crystals Cancelled 05/07/22 22:10 Unidentified Crystals Cancelled 05/07/22 22:10 Amorphous Crystals Cancelled 05/07/22 22:10 Urine Bacteria <20 /HPF (<20) 05/07/22 23:10 Hyaline Casts Cancelled 05/07/22 22:10 Granular Casts Cancelled 05/07/22 22:10 Waxy Casts Cancelled 05/07/22 22:10 RBC Casts Cancelled 05/07/22 22:10 WBC Casts Cancelled 05/07/22 22:10 Urine Mucus Cancelled 05/07/22 22:10 Urine Trichomonas Cancelled 05/07/22 22:10 Ur Yeast w Hyphae Cancelled 05/07/22 22:10 Urine Yeast (Budding) Cancelled 05/07/22 22:10 Urine Sperm Cancelled 05/07/22 22:10 Ur Oval Fat Bodies Cancelled 05/07/22 22:10 Urine Total Protein Negative (Negative) 05/07/22 23:10 Urine Ascorbic Acid Cancelled 05/07/22 22:10 Urine Fat Cancelled 05/07/22 22:10 SARS-CoV-2 Rap RNA(RT-PCR) Negative (NEGATIVE) 05/12/22 11:45 Weight: 176 lb 14.4 oz Wound Present: Yes Closed Surgical Incision Present: No Negative Pressure Wound Therapy Present: No Physician Update: Labs were reviewed and are stable. He is making good overall progress with therapy. His right hand pharmacy manager strength is improving well, feeding with adaptive weighted utensils. Now at min assistance for max assist. CGA with stand and pivot transfers, 60' CGA with walker, WC 50' CGA. Comment: multiple abrasions, crusting wound & bruises on face & extremities Summary: Patient's care plan and terminal gauger supervisor goals have been reviewed and revised as necessary. Please see the Rehabilitation Signature page for all necessary signatures.
[2022-05-18] MEDS: ROSUVASTATIN 10 MG TAB PO SCH (20:43)
[2022-05-18] MEDS: TRAZODONE 50 MG TABLET PO PRN (20:46)
[2022-05-18] MEDS: HYDROCODONE/APAP 7.5/325 MG TAB PO PRN (20:46)
[2022-05-19] MEDS: GABAPENTIN 300 MG CAP PO SCH ×2 (07:55→20:50)
[2022-05-19] MEDS: PANTOPRAZOLE 40MG TABLET PO SCH (07:55)
[2022-05-19] MEDS: VITAMIN B COMPLEX 1 CAP PO SCH (07:56)
[2022-05-19] MEDS: TAMSULOSIN 0.4 MG SR CAP PO SCH ×2 (07:56→20:50)
[2022-05-19] MEDS: LEVOTHYROXINE SOD 0.05 MG TABLET PO SCH (07:56)
[2022-05-19] MEDS: APIXABAN 5 MG TABLET PO SCH (07:57)
[2022-05-19] MEDS: INSULIN -REGULAR HUMAN 50 UNIT/0.5 ML ML SQ SCH ×4 (07:57→20:48)
[2022-05-19] MEDS: POTASSIUM CL SA 10 MEQ TAB PO SCH (07:57)
[2022-05-19] MEDS: VITAMIN D 1000 UNIT TAB PO SCH (07:57)
[2022-05-19] MEDS: INSULIN GLARGINE 100 UNIT/ML SQ SCH (07:58)
[2022-05-19] MEDS: RANOLAZINE 500 MG PO SCH ×2 (07:59→20:48)
[2022-05-19] MEDS: METOPROLOL TAR 50 MG TAB PO SCH ×2 (08:00→20:49)
[2022-05-19] MEDS: TRAZODONE 50 MG TABLET PO PRN (20:49)
[2022-05-19] MEDS: ROSUVASTATIN 10 MG TAB PO SCH (20:50)
[2022-05-20] MEDS: INSULIN -REGULAR HUMAN 50 UNIT/0.5 ML ML SQ SCH ×4 (07:30→20:52)
[2022-05-20] MEDS: LEVOTHYROXINE SOD 0.05 MG TABLET PO SCH (07:34)
[2022-05-20] MEDS: APIXABAN 5 MG TABLET PO SCH (07:34)
[2022-05-20] MEDS: PANTOPRAZOLE 40MG TABLET PO SCH (07:34)
[2022-05-20] MEDS: GABAPENTIN 300 MG CAP PO SCH ×2 (08:19→20:52)
[2022-05-20] MEDS: VITAMIN B COMPLEX 1 CAP PO SCH (08:19)
[2022-05-20] MEDS: TAMSULOSIN 0.4 MG SR CAP PO SCH ×2 (08:19→20:52)
[2022-05-20] MEDS: VITAMIN D 1000 UNIT TAB PO SCH (08:19)
[2022-05-20] MEDS: METOPROLOL TAR 50 MG TAB PO SCH ×2 (08:19→20:52)
[2022-05-20] MEDS: POTASSIUM CL SA 10 MEQ TAB PO SCH (08:19)
[2022-05-20] MEDS: RANOLAZINE 500 MG PO SCH ×2 (08:22→20:52)
[2022-05-20] MEDS: INSULIN GLARGINE 100 UNIT/ML SQ SCH (08:36)
[2022-05-20] MEDS: ROSUVASTATIN 10 MG TAB PO SCH (20:53)
[2022-05-20] MEDS: TRAZODONE 50 MG TABLET PO PRN (20:53)
[2022-05-21] MEDS: LEVOTHYROXINE SOD 0.05 MG TABLET PO SCH (06:16)
[2022-05-21] MEDS: PANTOPRAZOLE 40MG TABLET PO SCH (07:18)
[2022-05-21] MEDS: INSULIN -REGULAR HUMAN 50 UNIT/0.5 ML ML SQ SCH ×4 (07:24→21:09)
[2022-05-21] MEDS: RANOLAZINE 500 MG PO SCH ×2 (07:33→21:12)
[2022-05-21] MEDS: INSULIN GLARGINE 100 UNIT/ML SQ SCH (07:33)
[2022-05-21] MEDS: APIXABAN 5 MG TABLET PO SCH (07:34)
[2022-05-21] MEDS: POTASSIUM CL SA 10 MEQ TAB PO SCH (07:34)
[2022-05-21] MEDS: GABAPENTIN 300 MG CAP PO SCH ×2 (07:34→21:10)
[2022-05-21] MEDS: VITAMIN D 1000 UNIT TAB PO SCH (07:34)
[2022-05-21] MEDS: METOPROLOL TAR 50 MG TAB PO SCH ×2 (07:34→20:00)
[2022-05-21] MEDS: VITAMIN B COMPLEX 1 CAP PO SCH (07:34)
[2022-05-21] MEDS: TAMSULOSIN 0.4 MG SR CAP PO SCH ×2 (07:35→21:10)
--- NOTE | 2022-05-21 19:18 | R.PN ---
PROGRESS NOTES ENCOUNTER DATE AND TIME: 05/21/2022 19:13 (CDT) NAME ALTHEA TOVAR DATE OF : 1945 DATE OF ADMISSION: 05/07/2022 21:00 (CDT) GENERALIZED WEAKNESSCHIEF COMPLAINT: Fell on his face, debility with generalized weakness SUBJECTIVE: Pt denied any Shortness of Breath. Pt denied any depression. CBC with diff is essentially normal. HgA1c 7.8, glucose 133 to 253, prealbumin 11.4. Note serum alco hol was 297 on 05/04/22 when he was admitted to the acute care hospital after falling. Ambulated 140' with CGA using a rolling walker. Self-propelled wheelchair 100' with CGA. Covid-19 is negative x 2. VITAL SIGNS Temperature: 97.6 F SBP/DBP: 110/54 Pulse: 67 Resp: 16 MEDICATION ALLERGIES: No Known Drug Allergies (NKDA) ENVIRONMENTAL ALLERGIES: - Substance Allergies None Known - Other Allergies None Known NURSING: - Shower allowing shower PRECAUTIONS: - Fall Precaution Low bed TABS alarm Bed alarm - DVT Risk due to restricted mobility - Skin Breakdown Risk due to restricted mobility and age ACTIVITIES OOB only with supervision THERAPIES: - Dietary and Nutrition Adequate Nutrition. Nutritional Education. Nutritional Supplements. - Occupational Therapy Cognitive Retraining. Patient needs Occupational Therapy for a daily minimum of 1.5 hours at least 5 out of 7 days, to improve Activities of Daily Living, including: Eating, Grooming, Bathing, Dressing, Toileting, Toilet Transfers, Community Reintegration, Higher functional activities, Adaptive Equipme nt, Splinting, Household Tasks, and Other activities as determined. Visual Perceptual Training. - Physical Therapy Patient needs Physical Therapy for a daily minimum of 1.5 hours at least 5 out of 7 days, to improve: Mobility, Strengthening, Transfers, Stretching, ROM, Endurance, Ability to manage stairs, Gait, and Balance. PHYSICAL EXAM - Gen Alert and awake Lying in bed No apparent distress Oriented to: person, time, and place - Skin No breakdown Bilateral facial bruising, protective dressing on nose bridge - Eyes Hematoma around both eyes with injected left sclera. - Neck Decreased range of motion in all directions. - CVS RRR - Chest No abnormalities - Resp No wheezing - Abd Soft - GI Non distended Deferred - No abnormalities - Ext Mild bilateral lower extremity edema. 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 - Neuro No focal deficits. Decreased sensation in both hands with cervical radicular pain into both hands. - Psych No abnormalities ASSESSMENT: Pt. is a 76 yo male of unknown race.On 05/06/2022 he was admitted to [facility] with diagn osis GENERALIZED WEAKNESS.His impairment category is Debility 16 - Debility (16).Pre-morbidly, Pt. w as independent/mod-I in Locomotion and Self-Care; and he had good Safety Awareness, Balance, Transfer s Control, and Endurance.Currently, he has deficits of Locomotion, Safety Awareness, Transfers Contro l, Balance, Self-Care, and Endurance.Pt. is now referred to [facility] for acu te in-patient rehabilitation in order to maximize patient's functional independence in activities of daily living, strength, ROM, and mobility.- Rehab Goal Patient has realistic goal of being discharged at assistance level 6-Harsh to reside at Home with Fam davion/Relatives. MDM/PLAN: - Physical Therapy Gait dysfunction - to improve, our physical therapists will perform initial evaluation of pt's statu s upon admission and devise an individualized program for Gait Training, and Wheel Chair mobility Inability to transfer - to improve, our physical therapists will perform initial evaluation of pt's status upon admission and devise an individualized program for Bed mobility Need for home safety evaluation - to improve, our physical therapists will perform initial evaluatio n of pt's status upon admission and devise an individualized program for Home Evaluation Need in caregiver upon discharge - to improve, our physical therapists will perform initial evaluati on of pt's status upon admission and devise an individualized program for Caregiver Training New precaution - to improve, our physical therapists will perform initial evaluation of pt's status upon admission and devise an individualized program for Patient precaution education Edema - to improve, our physical therapists will perform initial evaluation of pt's status upon admi ssion and devise an individualized program for Elevation Training, and Lymphedema Therapy Poor balance - to improve, our physical therapists will perform initial evaluation of pt's status up on admission and devise an individualized program for Balance Training Poor endurance - to improve, our physical therapists will perform initial evaluation of pt's status upon admission and devise an individualized program for Endurance Training Weakness - to improve, our physical therapists will perform initial evaluation of pt's status upon a dmission and devise an individualized program for Aquatic Therapy, Neuromuscular Reeducation, and Str engthening Achieving independence - to improve, our physical therapists will perform initial evaluation of pt's status upon admission and devise an individualized program for Community Reintegration Activities - Occupational Therapy ADL deficits - to improve, our occupation therapists will perform initial evaluation of pt's status upon admission and devise an individualized program for Bathing, Bed mobility, Community Reintegratio n, Cooking, Dressing, Eating, Fine Motor Skills, Grooming, Homemaking, Kitchen Mobility, Laundry, Pat ient Education, Safety Awareness, Splinting - Positioning, Transfers(Toilet, Tub, Shower), and Wheel Chair Management Need for intensive care ambulance paramedic - to improve, our occupation therapists will perform initial evaluation of pt's status upon admission and devise an individualized program for Caregiver Training Weakness - to improve, our occupation therapists will perform initial evaluation of pt's status upon admission and devise an individualized program for Aquatic Therapy, Balance, Endurance, UE ROM, and UE strengthening - Other See attached MAR (Medication Administration Record) - Diet Type Continue Regular - Diet - Liquid Texture Continue Regular - Tube Feed Continue N/A - DVT Risk due to restricted mobility - Skin Breakdown Risk due to restricted mobility and age - Fall Precaution Low bed TABS alarm Bed alarm - Diet - Solid Texture Continue Regular - Shower allowing shower FUNCTIONAL STATUS: UPDATED AT WEEKLY TEAM CONFERENCE - Bladder Same accident frequency: 7-Ind - No accidents in the past 7 days - Bowel Same accident frequency: 7-Ind - No accidents in the past 7 days - Walking Same score based on distance walked: 0(N/A) - Wheelchair Same score based on distance traveled: 0(N/A) FUNCTIONAL STATUS: - Self-Care A. Eating Harsh B. Grooming Harsh C. Bathing modA D. Dressing - Upper Junior E. Dressing - Lower modA F. Toileting sup - Sphincter Control G. Bladder control Harsh H. Bowel control Harsh - Transfers Control I. Bed/Chair/Wheelchair modA J. Toilet maxA K. Tub/Shower maxA - Locomotion L. Walk/Wheelchair (B) maxA M. Stairs ADNO - Communication N. Comprehension (B) Harsh O. Expression (B) Harsh - Social Cognition P. Social Interaction Harsh Q. Problem Solving sup R. Memory Harsh - Endurance Fair - Balance Fair - Safety Awareness Fair QI SCORES: - Self-Care A. Eating 04-Supervision or touching assistance B. Oral hygiene 04-Supervision or touching assistance C. Toileting hygiene 03-Partial/moderate assistance E. Shower/bathe self 03-Partial/moderate assistance F. Upper body dressing 03-Partial/moderate assistance G. Lower body dressing 03-Partial/moderate assistance H. Putting on/taking off footwear 03-Partial/moderate assistance - Mobility A. Roll left and right 03-Partial/moderate assistance B. Sit to lying 03-Partial/moderate assistance C. Lying to sitting on side of bed 03-Partial/moderate assistance D. Sit to stand 03-Partial/moderate assistance E. Chair/[id number] transfer 03-Partial/moderate assistance F. Toilet transfer 03-Partial/moderate assistance G. Car transfer 88-Not attempted due to medical condition or safety concerns I. Walk 10 feet 88-Not attempted due to medical condition or safety concerns J. Walk 50 feet with two turns 88-Not attempted due to medical condition or safety concerns K. Walk 150 feet 88-Not attempted due to medical condition or safety concerns L. Walking 10 feet on uneven surfaces 88-Not attempted due to medical condition or safety concerns M. 1 step (curb) 88-Not attempted due to medical condition or safety concerns N. 4 steps 88-Not attempted due to medical condition or safety concerns O. 12 steps 88-Not attempted due to medical condition or safety concerns P. Picking up object 88-Not attempted due to medical condition or safety concerns R. Wheel 50 feet with two turns 09-Not applicable S. Wheel 150 feet 09-Not applicable - Bladder and Bowel Bladder continence 0-Always continent Bowel continence 0-Always continent - Endurance Fair - Balance Poor - Safety Awareness Poor CURRENT FUNC. DEFICITS: Self-Care, Mobility, Endurance, Balance, and Safety Awareness SIGNATURE PANEL: (CDT)
[2022-05-21] MEDS: TRAZODONE 50 MG TABLET PO PRN (21:10)
[2022-05-21] MEDS: HYDROCODONE/APAP 7.5/325 MG TAB PO PRN (21:10)
[2022-05-21] MEDS: ROSUVASTATIN 10 MG TAB PO SCH (21:11)
[2022-05-22] MEDS: LEVOTHYROXINE SOD 0.05 MG TABLET PO SCH (06:39)
[2022-05-22] MEDS: INSULIN -REGULAR HUMAN 50 UNIT/0.5 ML ML SQ SCH ×4 (07:19→21:31)
[2022-05-22] MEDS: VITAMIN D 1000 UNIT TAB PO SCH (08:06)
[2022-05-22] MEDS: GABAPENTIN 300 MG CAP PO SCH ×2 (08:07→21:05)
[2022-05-22] MEDS: APIXABAN 5 MG TABLET PO SCH (08:07)
[2022-05-22] MEDS: METOPROLOL TAR 50 MG TAB PO SCH ×2 (08:07→21:05)
[2022-05-22] MEDS: POTASSIUM CL SA 10 MEQ TAB PO SCH (08:07)
[2022-05-22] MEDS: VITAMIN B COMPLEX 1 CAP PO SCH (08:07)
[2022-05-22] MEDS: TAMSULOSIN 0.4 MG SR CAP PO SCH ×2 (08:07→21:05)
[2022-05-22] MEDS: PANTOPRAZOLE 40MG TABLET PO SCH (08:08)
[2022-05-22] MEDS: RANOLAZINE 500 MG PO SCH ×2 (08:14→21:05)
[2022-05-22 08:37] LABS: Absolute Lymphocytes (CBC) 1.7 K/uL (0.7-4.9); Hematocrit 41.2 % (39.6-49.0); Lymphocytes % 27.4 % (15.3-44.8); MCV 95.3 fL (80-100); MPV 7.9 fL (7.6-11.3); RBC Red Blood Cell Count 4.32 M/uL (4.33-5.43)
[2022-05-22] MEDS: INSULIN GLARGINE 100 UNIT/ML SQ SCH (08:54)
[2022-05-22 09:00] LABS: Albumin 2.9 g/dL (3.4-5.0); Magnesium 2.2 mg/dL (1.8-2.4); Potassium 4.1 mmol/L (3.5-5.1)
--- NOTE | 2022-05-22 18:06 | R.PN ---
PROGRESS NOTES ENCOUNTER DATE AND TIME: 05/22/2022 17:59 (CDT) NAME ALTHEA TOVAR DATE OF : 1945 DATE OF ADMISSION: 05/07/2022 21:00 (CDT) GENERALIZED WEAKNESSCHIEF COMPLAINT: Fell on his face, debility with generalized weakness SUBJECTIVE: Pt denied any Shortness of Breath. Pt denied any depression. CBC with diff is essentially normal. HgA1c 7.8, glucose 142 to 180, prealbumin 11.4. Note serum alco hol was 297 on 05/04/22 when he was admitted to the acute care hospital after falling. Ambulated 140' with CGA using a rolling walker. Self-propelled wheelchair 100' with CGA. Covid-19 is negative x 2. VITAL SIGNS Temperature: 98.0 F SBP/DBP: 125/59 Pulse: 57 Resp: 16 MEDICATION ALLERGIES: No Known Drug Allergies (NKDA) ENVIRONMENTAL ALLERGIES: - Substance Allergies None Known - Other Allergies None Known NURSING: - Shower allowing shower PRECAUTIONS: - Fall Precaution Low bed TABS alarm Bed alarm - DVT Risk due to restricted mobility - Skin Breakdown Risk due to restricted mobility and age ACTIVITIES OOB only with supervision THERAPIES: - Dietary and Nutrition Adequate Nutrition. Nutritional Education. Nutritional Supplements. - Occupational Therapy Cognitive Retraining. Patient needs Occupational Therapy for a daily minimum of 1.5 hours at least 5 out of 7 days, to improve Activities of Daily Living, including: Eating, Grooming, Bathing, Dressing, Toileting, Toilet Transfers, Community Reintegration, Higher functional activities, Adaptive Equipme nt, Splinting, Household Tasks, and Other activities as determined. Visual Perceptual Training. - Physical Therapy Patient needs Physical Therapy for a daily minimum of 1.5 hours at least 5 out of 7 days, to improve: Mobility, Strengthening, Transfers, Stretching, ROM, Endurance, Ability to manage stairs, Gait, and Balance. PHYSICAL EXAM - Gen Alert and awake Lying in bed No apparent distress Oriented to: person, time, and place - Skin No breakdown Bilateral facial bruising, protective dressing on nose bridge - Eyes Hematoma around both eyes with injected left sclera. - Neck Decreased range of motion in all directions. - CVS RRR - Chest No abnormalities - Resp No wheezing - Abd Soft - GI Non distended Deferred - No abnormalities - Ext Mild bilateral lower extremity edema. 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 - Neuro No focal deficits. Decreased sensation in both hands with cervical radicular pain into both hands. - Psych No abnormalities ASSESSMENT: Pt. is a 76 yo male of unknown race.On 05/06/2022 he was admitted to [facility] with diagn osis GENERALIZED WEAKNESS.His impairment category is Debility 16 - Debility (16).Pre-morbidly, Pt. w as independent/mod-I in Locomotion and Self-Care; and he had good Safety Awareness, Balance, Transfer s Control, and Endurance.Currently, he has deficits of Locomotion, Safety Awareness, Transfers Contro l, Balance, Self-Care, and Endurance.Pt. is now referred to [facility] for acu te in-patient rehabilitation in order to maximize patient's functional independence in activities of daily living, strength, ROM, and mobility.- Rehab Goal Patient has realistic goal of being discharged at assistance level 6-Harsh to reside at Home with Fam davion/Relatives. MDM/PLAN: - Physical Therapy Gait dysfunction - to improve, our physical therapists will perform initial evaluation of pt's statu s upon admission and devise an individualized program for Gait Training, and Wheel Chair mobility Inability to transfer - to improve, our physical therapists will perform initial evaluation of pt's status upon admission and devise an individualized program for Bed mobility Need for home safety evaluation - to improve, our physical therapists will perform initial evaluatio n of pt's status upon admission and devise an individualized program for Home Evaluation Need in caregiver upon discharge - to improve, our physical therapists will perform initial evaluati on of pt's status upon admission and devise an individualized program for Caregiver Training New precaution - to improve, our physical therapists will perform initial evaluation of pt's status upon admission and devise an individualized program for Patient precaution education Edema - to improve, our physical therapists will perform initial evaluation of pt's status upon admi ssion and devise an individualized program for Elevation Training, and Lymphedema Therapy Poor balance - to improve, our physical therapists will perform initial evaluation of pt's status up on admission and devise an individualized program for Balance Training Poor endurance - to improve, our physical therapists will perform initial evaluation of pt's status upon admission and devise an individualized program for Endurance Training Weakness - to improve, our physical therapists will perform initial evaluation of pt's status upon a dmission and devise an individualized program for Aquatic Therapy, Neuromuscular Reeducation, and Str engthening Achieving independence - to improve, our physical therapists will perform initial evaluation of pt's status upon admission and devise an individualized program for Community Reintegration Activities - Occupational Therapy ADL deficits - to improve, our occupation therapists will perform initial evaluation of pt's status upon admission and devise an individualized program for Bathing, Bed mobility, Community Reintegratio n, Cooking, Dressing, Eating, Fine Motor Skills, Grooming, Homemaking, Kitchen Mobility, Laundry, Pat ient Education, Safety Awareness, Splinting - Positioning, Transfers(Toilet, Tub, Shower), and Wheel Chair Management Need for pet caretaker - to improve, our occupation therapists will perform initial evaluation of pt's status upon admission and devise an individualized program for Caregiver Training Weakness - to improve, our occupation therapists will perform initial evaluation of pt's status upon admission and devise an individualized program for Aquatic Therapy, Balance, Endurance, UE ROM, and UE strengthening - Other See attached MAR (Medication Administration Record) - Diet Type Continue Regular - Diet - Liquid Texture Continue Regular - Tube Feed Continue N/A - DVT Risk due to restricted mobility - Skin Breakdown Risk due to restricted mobility and age - Fall Precaution Low bed TABS alarm Bed alarm - Diet - Solid Texture Continue Regular - Shower allowing shower FUNCTIONAL STATUS: UPDATED AT WEEKLY TEAM CONFERENCE - Bladder Same accident frequency: 7-Ind - No accidents in the past 7 days - Bowel Same accident frequency: 7-Ind - No accidents in the past 7 days - Walking Same score based on distance walked: 0(N/A) - Wheelchair Same score based on distance traveled: 0(N/A) FUNCTIONAL STATUS: - Self-Care A. Eating Harsh B. Grooming Harsh C. Bathing modA D. Dressing - Upper Junior E. Dressing - Lower modA F. Toileting sup - Sphincter Control G. Bladder control Harsh H. Bowel control Harsh - Transfers Control I. Bed/Chair/Wheelchair modA J. Toilet maxA K. Tub/Shower maxA - Locomotion L. Walk/Wheelchair (B) maxA M. Stairs ADNO - Communication N. Comprehension (B) Harsh O. Expression (B) Harsh - Social Cognition P. Social Interaction Harsh Q. Problem Solving sup R. Memory Harsh - Endurance Fair - Balance Fair - Safety Awareness Fair QI SCORES: - Self-Care A. Eating 04-Supervision or touching assistance B. Oral hygiene 04-Supervision or touching assistance C. Toileting hygiene 03-Partial/moderate assistance E. Shower/bathe self 03-Partial/moderate assistance F. Upper body dressing 03-Partial/moderate assistance G. Lower body dressing 03-Partial/moderate assistance H. Putting on/taking off footwear 03-Partial/moderate assistance - Mobility A. Roll left and right 03-Partial/moderate assistance B. Sit to lying 03-Partial/moderate assistance C. Lying to sitting on side of bed 03-Partial/moderate assistance D. Sit to stand 03-Partial/moderate assistance E. Chair/[id number]-[id number] transfer 03-Partial/moderate assistance F. Toilet transfer 03-Partial/moderate assistance G. Car transfer 88-Not attempted due to medical condition or safety concerns I. Walk 10 feet 88-Not attempted due to medical condition or safety concerns J. Walk 50 feet with two turns 88-Not attempted due to medical condition or safety concerns K. Walk 150 feet 88-Not attempted due to medical condition or safety concerns L. Walking 10 feet on uneven surfaces 88-Not attempted due to medical condition or safety concerns M. 1 step (curb) 88-Not attempted due to medical condition or safety concerns N. 4 steps 88-Not attempted due to medical condition or safety concerns O. 12 steps 88-Not attempted due to medical condition or safety concerns P. Picking up object 88-Not attempted due to medical condition or safety concerns R. Wheel 50 feet with two turns 09-Not applicable S. Wheel 150 feet 09-Not applicable - Bladder and Bowel Bladder continence 0-Always continent Bowel continence 0-Always continent - Endurance Fair - Balance Poor - Safety Awareness Poor CURRENT FUNC. DEFICITS: Self-Care, Mobility, Endurance, Balance, and Safety Awareness SIGNATURE PANEL: (CDT)
[2022-05-22 18:55] LABS: Prealbumin 11.3 mg/dL (20-40)
[2022-05-22] MEDS: ROSUVASTATIN 10 MG TAB PO SCH (21:05)
[2022-05-22] MEDS: TRAZODONE 50 MG TABLET PO PRN (21:05)
[2022-05-23] MEDS: LEVOTHYROXINE SOD 0.05 MG TABLET PO SCH (06:54)
[2022-05-23] MEDS: INSULIN -REGULAR HUMAN 50 UNIT/0.5 ML ML SQ SCH ×4 (07:27→20:54)
[2022-05-23] MEDS: POTASSIUM CL SA 10 MEQ TAB PO SCH (08:16)
[2022-05-23] MEDS: VITAMIN B COMPLEX 1 CAP PO SCH (08:16)
[2022-05-23] MEDS: VITAMIN D 1000 UNIT TAB PO SCH (08:16)
[2022-05-23] MEDS: GABAPENTIN 300 MG CAP PO SCH ×2 (08:17→20:54)
[2022-05-23] MEDS: METOPROLOL TAR 50 MG TAB PO SCH ×2 (08:17→20:54)
[2022-05-23] MEDS: APIXABAN 5 MG TABLET PO SCH (08:19)
[2022-05-23] MEDS: PANTOPRAZOLE 40MG TABLET PO SCH (08:19)
[2022-05-23] MEDS: RANOLAZINE 500 MG PO SCH ×2 (08:21→20:54)
[2022-05-23] MEDS: INSULIN GLARGINE 100 UNIT/ML SQ SCH (08:21)
--- NOTE | 2022-05-23 09:51 | P.RH.PN ---
Estimated Length of Stay: 23 Expected Discharge Date: 05/30/22 Discharge Disposition Plan: Home Family Support: Yes Care Home Goal: Mobility, Transfers, Self Care Vital Signs: Last Vital Signs Temp 98.5 F 05/23/22 07:08 Pulse 73 05/23/22 08:17 Resp 18 05/23/22 07:08 BP 118/64 05/23/22 08:17 Pulse Ox 95 05/23/22 07:08 Laboratory: Laboratory Last Values WBC 6.10 K/uL (4.3-10.9) D 05/22/22 08:08 RBC 4.32 M/uL (4.33-5.43) L 05/22/22 08:08 Hgb 13.9 g/dL (13.6-17.9) 05/22/22 08:08 Hct 41.2 % (39.6-49.0) 05/22/22 08:08 MCV 95.3 fL (80-100) 05/22/22 08:08 MCH 32.2 pg (27.0-35.0) 05/22/22 08:08 MCHC 33.8 g/dL (32.0-36.0) 05/22/22 08:08 RDW 13.4 % (12.1-15.2) 05/22/22 08:08 Plt Count 239 K/uL (152-406) 05/22/22 08:08 MPV 7.9 fL (7.6-11.3) 05/22/22 08:08 Neutrophils % 52.5 % (41.7-73.7) 05/22/22 08:08 Lymphocytes % 27.4 % (15.3-44.8) 05/22/22 08:08 Monocytes % 14.1 % (3.3-12.3) H 05/22/22 08:08 Eosinophils % 5.0 % (0-4.4) H 05/22/22 08:08 Basophils % 1.0 % (0-1.3) 05/22/22 08:08 Absolute Neutrophils 3.2 K/uL (1.8-8.0) 05/22/22 08:08 Segmented Neutrophils 64 % (40-80) 05/17/22 04:10 Absolute Lymphocytes 1.7 K/uL (0.7-4.9) 05/22/22 08:08 Lymphocytes 16 % (15-42) 05/17/22 04:10 Monocytes 11 % (0-10) H 05/17/22 04:10 Absolute Monocytes 0.9 K/uL (0.1-1.3) 05/22/22 08:08 Eosinophils 2 % (0-3) 05/17/22 04:10 Absolute Eosinophils 0.3 K/uL (0-0.5) 05/22/22 08:08 Basophils 2 % (0-1) H 05/17/22 04:10 Absolute Basophils 0.1 K/uL (0-0.5) 05/22/22 08:08 Reactive Lymphocytes 5 % 05/17/22 04:10 Platelet Estimate Adeq 05/17/22 04:10 Morphology Comment Not seen (NOT SEEN) 05/17/22 04:10 Sodium 139 mmol/L (136-145) 05/22/22 08:08 Potassium 4.1 mmol/L (3.5-5.1) 05/22/22 08:08 Chloride 105 mmol/L (98-107) 05/22/22 08:08 Carbon Dioxide 29 mmol/L (21-32) 05/22/22 08:08 Anion Gap 9.1 mEq/L (5.0-15.0) 05/22/22 08:08 BUN 13 mg/dL (7-18) 05/22/22 08:08 Creatinine 0.97 mg/dL (0.55-1.3) 05/22/22 08:08 Est GFR (CKD-EPI) 80 ml/min (=/>90) L 05/22/22 08:08 Glucose 142 mg/dL (74-106) H 05/22/22 08:08 POC Glucose 169 mg/dL (65-120) H 05/23/22 07:16 Hemoglobin A1c 7.8 % (4.2-6.3) H 05/09/22 04:06 Calcium 9.3 mg/dL (8.5-10.1) 05/22/22 08:08 Magnesium 2.2 mg/dL (1.8-2.4) 05/22/22 08:08 Albumin 2.9 g/dL (3.4-5.0) L 05/22/22 08:08 Prealbumin 11.3 mg/dL (20-40) L 05/22/22 08:08 Urine Color Yellow (Yellow) 05/07/22 23:10 Urine Clarity Cloudy (Clear) 05/07/22 23:10 Urine pH 6.0 (5.0-7.0) 05/07/22 23:10 Ur Specific [place] 1.015 (1.005-1.030) 05/07/22 23:10 Glucose (UA)(Auto) 3+ (Negative) H 05/07/22 23:10 Urine Ketones 2+ (Negative) H 05/07/22 23:10 Urine Blood 2+ (Negative) H 05/07/22 23:10 Urine Nitrite Negative (Negative) 05/07/22 23:10 Urine Bilirubin Negative (Negative) 05/07/22 23:10 Urine Urobilinogen 1.0 mg/dL (0.2-1.0) 05/07/22 23:10 Ur Leukocyte Esterase 1+ (Negative) H 05/07/22 23:10 Urine RBC 11-20 /HPF (None Seen) H 05/07/22 23:10 Urine Red Cell Clumps Cancelled 05/07/22 22:10 Urine WBC >50 /HPF (<5) H 05/07/22 23:10 Urine WBC Clumps Cancelled 05/07/22 22:10 Ur Squamous Epith Cells SENIOR SOFTWARE SYSTEMS ENGINEER 05/07/22 23:10 U Non-Squamous Epi Cells <5 /HPF (None Seen) 05/07/22 23:10 Ur Transition Epith Cell Cancelled 05/07/22 22:10 Ur Renal Epithelial Cell Cancelled 05/07/22 22:10 Calcium Carbonate Cryst Cancelled 05/07/22 22:10 Calcium Oxalate Crystal Cancelled 05/07/22 22:10 Leucine Crystals Cancelled 05/07/22 22:10 Cystine Crystals Cancelled 05/07/22 22:10 Uric Acid Crystals Cancelled 05/07/22 22:10 Triple Phos Crystals Cancelled 05/07/22 22:10 Tyrosine Crystals Cancelled 05/07/22 22:10 Unidentified Crystals Cancelled 05/07/22 22:10 Amorphous Crystals Cancelled 05/07/22 22:10 Urine Bacteria <20 /HPF (<20) 05/07/22 23:10 Hyaline Casts Cancelled 05/07/22 22:10 Granular Casts Cancelled 05/07/22 22:10 Waxy Casts Cancelled 05/07/22 22:10 RBC Casts Cancelled 05/07/22 22:10 WBC Casts Cancelled 05/07/22 22:10 Urine Mucus Cancelled 05/07/22 22:10 Urine Trichomonas Cancelled 05/07/22 22:10 Ur Yeast w Hyphae Cancelled 05/07/22 22:10 Urine Yeast (Budding) Cancelled 05/07/22 22:10 Urine Sperm Cancelled 05/07/22 22:10 Ur Oval Fat Bodies Cancelled 05/07/22 22:10 Urine Total Protein Negative (Negative) 05/07/22 23:10 Urine Ascorbic Acid Cancelled 05/07/22 22:10 Urine Fat Cancelled 05/07/22 22:10 SARS-CoV-2 Rap RNA(RT-PCR) Negative (NEGATIVE) 05/19/22 07:50 Weight: 176 lb 14.4 oz Wound Present: Yes Closed Surgical Incision Present: No Negative Pressure Wound Therapy Present: No Physician Update: His labs were reviewed. He has chronic urinary incontinence. He is making fair overall progress. Doing fairly well with PT. Ambulating 200' with CGA, transfers at SBA, will try steps. 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 His right hand is stronger. Comment: multiple abrasions, crusting wound & bruises on face & extremities. - healing Summary: Patient's care plan and detention goals have been reviewed and revised as necessary. Please see the Rehabilitation Signature page for all necessary signatures.
[2022-05-23] MEDS: TAMSULOSIN 0.4 MG SR CAP PO SCH (10:11)
[2022-05-23] MEDS: MEDIHONEY 44 ML TOPICAL TUBE TOP SCH (12:51)
[2022-05-23] MEDS: ROSUVASTATIN 10 MG TAB PO SCH (20:53)
[2022-05-23] MEDS: TRAZODONE 50 MG TABLET PO PRN (20:54)
[2022-05-24] MEDS: LEVOTHYROXINE SOD 0.05 MG TABLET PO SCH (06:25)
[2022-05-24] MEDS: PANTOPRAZOLE 40MG TABLET PO SCH (07:04)
[2022-05-24] MEDS: INSULIN -REGULAR HUMAN 50 UNIT/0.5 ML ML SQ SCH ×4 (07:10→20:54)
[2022-05-24] MEDS: RANOLAZINE 500 MG PO SCH ×2 (07:44→20:53)
[2022-05-24] MEDS: INSULIN GLARGINE 100 UNIT/ML SQ SCH (07:45)
[2022-05-24] MEDS: VITAMIN D 1000 UNIT TAB PO SCH (07:46)
[2022-05-24] MEDS: METOPROLOL TAR 50 MG TAB PO SCH ×2 (07:46→20:53)
[2022-05-24] MEDS: VITAMIN B COMPLEX 1 CAP PO SCH (07:46)
[2022-05-24] MEDS: POTASSIUM CL SA 10 MEQ TAB PO SCH (07:46)
[2022-05-24] MEDS: APIXABAN 5 MG TABLET PO SCH (07:46)
[2022-05-24] MEDS: TAMSULOSIN 0.4 MG SR CAP PO SCH (07:46)
[2022-05-24] MEDS: GABAPENTIN 300 MG CAP PO SCH ×2 (07:46→20:53)
[2022-05-24] MEDS: MEDIHONEY 44 ML TOPICAL TUBE TOP SCH (09:31)
[2022-05-24] MEDS: TRAZODONE 50 MG TABLET PO PRN (20:53)
[2022-05-24] MEDS: ROSUVASTATIN 10 MG TAB PO SCH (20:53)
[2022-05-25] MEDS: LEVOTHYROXINE SOD 0.05 MG TABLET PO SCH (07:03)
[2022-05-25] MEDS: PANTOPRAZOLE 40MG TABLET PO SCH (07:03)
[2022-05-25] MEDS: INSULIN -REGULAR HUMAN 50 UNIT/0.5 ML ML SQ SCH ×4 (07:30→20:02)
[2022-05-25] MEDS: POTASSIUM CL SA 10 MEQ TAB PO SCH (08:57)
[2022-05-25] MEDS: TAMSULOSIN 0.4 MG SR CAP PO SCH (08:57)
[2022-05-25] MEDS: VITAMIN D 1000 UNIT TAB PO SCH (08:57)
[2022-05-25] MEDS: APIXABAN 5 MG TABLET PO SCH (08:57)
[2022-05-25] MEDS: METOPROLOL TAR 50 MG TAB PO SCH ×2 (08:57→20:01)
[2022-05-25] MEDS: VITAMIN B COMPLEX 1 CAP PO SCH (08:57)
[2022-05-25] MEDS: RANOLAZINE 500 MG PO SCH ×2 (08:58→20:01)
[2022-05-25] MEDS: GABAPENTIN 300 MG CAP PO SCH ×2 (08:58→20:01)
[2022-05-25] MEDS: INSULIN GLARGINE 100 UNIT/ML SQ SCH (08:58)
[2022-05-25] MEDS: MEDIHONEY 44 ML TOPICAL TUBE TOP SCH (08:59)
[2022-05-25] MEDS: AMINO ACIDS/PROTEIN HYDROLYS 30 ML LIQUID.PKT PO SCH (20:00)
[2022-05-25] MEDS: TRAZODONE 50 MG TABLET PO PRN (20:02)
[2022-05-25] MEDS: ROSUVASTATIN 10 MG TAB PO SCH (20:02)
[2022-05-25] MEDS: HYDROCODONE/APAP 5/325 MG TAB PO PRN (20:14)
[2022-05-26] MEDS: LEVOTHYROXINE SOD 0.05 MG TABLET PO SCH (06:22)
[2022-05-26] MEDS: APIXABAN 5 MG TABLET PO SCH (07:37)
[2022-05-26] MEDS: POTASSIUM CL SA 10 MEQ TAB PO SCH (07:38)
[2022-05-26] MEDS: VITAMIN D 1000 UNIT TAB PO SCH (07:38)
[2022-05-26] MEDS: GABAPENTIN 300 MG CAP PO SCH ×2 (07:38→20:51)
[2022-05-26] MEDS: MEDIHONEY 44 ML TOPICAL TUBE TOP SCH (07:39)
[2022-05-26] MEDS: TAMSULOSIN 0.4 MG SR CAP PO SCH (07:39)
[2022-05-26] MEDS: METOPROLOL TAR 50 MG TAB PO SCH ×2 (07:39→20:52)
[2022-05-26] MEDS: PANTOPRAZOLE 40MG TABLET PO SCH (07:41)
[2022-05-26] MEDS: RANOLAZINE 500 MG PO SCH ×2 (07:46→20:51)
[2022-05-26] MEDS: AMINO ACIDS/PROTEIN HYDROLYS 30 ML LIQUID.PKT PO SCH ×2 (07:47→20:00)
[2022-05-26] MEDS: VITAMIN B COMPLEX 1 CAP PO SCH (07:48)
[2022-05-26] MEDS: INSULIN GLARGINE 100 UNIT/ML SQ SCH (08:47)
[2022-05-26] MEDS: INSULIN -REGULAR HUMAN 50 UNIT/0.5 ML ML SQ SCH ×4 (08:48→19:20)
[2022-05-26] MEDS: ROSUVASTATIN 10 MG TAB PO SCH (20:51)
[2022-05-26] MEDS: HYDROCODONE/APAP 5/325 MG TAB PO PRN (20:51)
[2022-05-26] MEDS: TRAZODONE 50 MG TABLET PO PRN (20:51)
[2022-05-27] MEDS: LEVOTHYROXINE SOD 0.05 MG TABLET PO SCH (06:32)
[2022-05-27] MEDS: PANTOPRAZOLE 40MG TABLET PO SCH (07:22)
[2022-05-27] MEDS: INSULIN -REGULAR HUMAN 50 UNIT/0.5 ML ML SQ SCH ×4 (07:30→20:17)
[2022-05-27] MEDS: METOPROLOL TAR 50 MG TAB PO SCH ×4 (08:00→20:40)
[2022-05-27] MEDS: VITAMIN D 1000 UNIT TAB PO SCH (08:05)
[2022-05-27] MEDS: APIXABAN 5 MG TABLET PO SCH (08:05)
[2022-05-27] MEDS: VITAMIN B COMPLEX 1 CAP PO SCH (08:05)
[2022-05-27] MEDS: TAMSULOSIN 0.4 MG SR CAP PO SCH (08:05)
[2022-05-27] MEDS: POTASSIUM CL SA 10 MEQ TAB PO SCH (08:05)
[2022-05-27] MEDS: RANOLAZINE 500 MG PO SCH ×2 (08:05→20:38)
[2022-05-27] MEDS: INSULIN GLARGINE 100 UNIT/ML SQ SCH (08:06)
[2022-05-27] MEDS: GABAPENTIN 300 MG CAP PO SCH ×2 (08:06→20:38)
[2022-05-27] MEDS: AMINO ACIDS/PROTEIN HYDROLYS 30 ML LIQUID.PKT PO SCH ×2 (08:08→20:39)
[2022-05-27] MEDS: MEDIHONEY 44 ML TOPICAL TUBE TOP SCH (09:10)
[2022-05-27] MEDS: HYDROCODONE/APAP 5/325 MG TAB PO PRN (18:34)
[2022-05-27] MEDS: TRAZODONE 50 MG TABLET PO PRN (20:38)
[2022-05-27] MEDS: ROSUVASTATIN 10 MG TAB PO SCH (20:38)
[2022-05-28] MEDS: LEVOTHYROXINE SOD 0.05 MG TABLET PO SCH (06:59)
[2022-05-28] MEDS: INSULIN -REGULAR HUMAN 50 UNIT/0.5 ML ML SQ SCH ×4 (07:30→20:07)
[2022-05-28] MEDS: APIXABAN 5 MG TABLET PO SCH (07:50)
[2022-05-28] MEDS: VITAMIN D 1000 UNIT TAB PO SCH (07:50)
[2022-05-28] MEDS: VITAMIN B COMPLEX 1 CAP PO SCH (07:50)
[2022-05-28] MEDS: PANTOPRAZOLE 40MG TABLET PO SCH (07:50)
[2022-05-28] MEDS: METOPROLOL TAR 50 MG TAB PO SCH ×2 (07:51→21:22)
[2022-05-28] MEDS: TAMSULOSIN 0.4 MG SR CAP PO SCH (07:51)
[2022-05-28] MEDS: POTASSIUM CL SA 10 MEQ TAB PO SCH (07:51)
[2022-05-28] MEDS: INSULIN GLARGINE 100 UNIT/ML SQ SCH (07:54)
[2022-05-28] MEDS: RANOLAZINE 500 MG PO SCH ×2 (07:55→21:23)
[2022-05-28] MEDS: GABAPENTIN 300 MG CAP PO SCH ×2 (07:56→21:23)
[2022-05-28] MEDS: MEDIHONEY 44 ML TOPICAL TUBE TOP SCH (07:56)
[2022-05-28] MEDS: AMINO ACIDS/PROTEIN HYDROLYS 30 ML LIQUID.PKT PO SCH ×2 (07:57→21:23)
[2022-05-28] MEDS: ROSUVASTATIN 10 MG TAB PO SCH (21:22)
[2022-05-28] MEDS: TRAZODONE 50 MG TABLET PO PRN (21:23)
[2022-05-29] MEDS: LEVOTHYROXINE SOD 0.05 MG TABLET PO SCH (06:29)
[2022-05-29] MEDS: PANTOPRAZOLE 40MG TABLET PO SCH (07:09)
[2022-05-29] MEDS: INSULIN -REGULAR HUMAN 50 UNIT/0.5 ML ML SQ SCH ×4 (07:19→20:21)
[2022-05-29] MEDS: INSULIN GLARGINE 100 UNIT/ML SQ SCH (07:31)
[2022-05-29] MEDS: METOPROLOL TAR 50 MG TAB PO SCH ×2 (07:32→20:57)
[2022-05-29] MEDS: GABAPENTIN 300 MG CAP PO SCH ×2 (07:32→20:57)
[2022-05-29] MEDS: VITAMIN D 1000 UNIT TAB PO SCH (07:33)
[2022-05-29] MEDS: APIXABAN 5 MG TABLET PO SCH (07:33)
[2022-05-29] MEDS: TAMSULOSIN 0.4 MG SR CAP PO SCH (07:33)
[2022-05-29] MEDS: VITAMIN B COMPLEX 1 CAP PO SCH (07:33)
[2022-05-29] MEDS: POTASSIUM CL SA 10 MEQ TAB PO SCH (07:33)
[2022-05-29] MEDS: AMINO ACIDS/PROTEIN HYDROLYS 30 ML LIQUID.PKT PO SCH ×2 (07:34→20:56)
[2022-05-29] MEDS: RANOLAZINE 500 MG PO SCH ×2 (07:34→20:57)
[2022-05-29] MEDS: MEDIHONEY 44 ML TOPICAL TUBE TOP SCH (12:22)
--- NOTE | 2022-05-29 20:24 | R.PN ---
PROGRESS NOTES ENCOUNTER DATE AND TIME: 05/29/2022 20:21 (CDT) NAME ALTHEA TOVAR DATE OF : 1945 DATE OF ADMISSION: 05/07/2022 21:00 (CDT) GENERALIZED WEAKNESSCHIEF COMPLAINT: Fell on his face, debility with generalized weakness SUBJECTIVE: Pt denied any Shortness of Breath. Pt denied any depression. CBC with diff is essentially normal. HgA1c 7.8, glucose 145 to 174, prealbumin 11.4. Note serum alco hol was 297 on 05/04/22 when he was admitted to the acute care hospital after falling. Ambulated 300' with CGA using a rolling walker. Self-propelled wheelchair 250' with SBA. Covid-19 is negative x 2. VITAL SIGNS Temperature: 98.4 F SBP/DBP: 113/66 Pulse: 76 Resp: 16 MEDICATION ALLERGIES: No Known Drug Allergies (NKDA) ENVIRONMENTAL ALLERGIES: - Substance Allergies None Known - Other Allergies None Known NURSING: - Shower allowing shower PRECAUTIONS: - Fall Precaution Low bed TABS alarm Bed alarm - DVT Risk due to restricted mobility - Skin Breakdown Risk due to restricted mobility and age ACTIVITIES OOB only with supervision THERAPIES: - Dietary and Nutrition Adequate Nutrition. Nutritional Education. Nutritional Supplements. - Occupational Therapy Cognitive Retraining. Patient needs Occupational Therapy for a daily minimum of 1.5 hours at least 5 out of 7 days, to improve Activities of Daily Living, including: Eating, Grooming, Bathing, Dressing, Toileting, Toilet Transfers, Community Reintegration, Higher functional activities, Adaptive Equipme nt, Splinting, Household Tasks, and Other activities as determined. Visual Perceptual Training. - Physical Therapy Patient needs Physical Therapy for a daily minimum of 1.5 hours at least 5 out of 7 days, to improve: Mobility, Strengthening, Transfers, Stretching, ROM, Endurance, Ability to manage stairs, Gait, and Balance. PHYSICAL EXAM - Gen Alert and awake Lying in bed No apparent distress Oriented to: person, time, and place - Skin No breakdown Bilateral facial bruising, protective dressing on nose bridge - Eyes Hematoma around both eyes with injected left sclera. - Neck Decreased range of motion in all directions. - CVS RRR - Chest No abnormalities - Resp No wheezing - Abd Soft - GI Non distended Deferred - No abnormalities - Ext Mild bilateral lower extremity edema. 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 - Neuro No focal deficits. Decreased sensation in both hands with cervical radicular pain into both hands. - Psych No abnormalities ASSESSMENT: Pt. is a 76 yo male of unknown race.On 05/06/2022 he was admitted to [facility] with diagn osis GENERALIZED WEAKNESS.His impairment category is Debility 16 - Debility (16).Pre-morbidly, Pt. w as independent/mod-I in Locomotion and Self-Care; and he had good Safety Awareness, Balance, Transfer s Control, and Endurance.Currently, he has deficits of Locomotion, Safety Awareness, Transfers Contro l, Balance, Self-Care, and Endurance.Pt. is now referred to [facility] for acu te in-patient rehabilitation in order to maximize patient's functional independence in activities of daily living, strength, ROM, and mobility.- Rehab Goal Patient has realistic goal of being discharged at assistance level 6-Harsh to reside at Home with Fam davion/Relatives. MDM/PLAN: - Physical Therapy Gait dysfunction - to improve, our physical therapists will perform initial evaluation of pt's statu s upon admission and devise an individualized program for Gait Training, and Wheel Chair mobility Inability to transfer - to improve, our physical therapists will perform initial evaluation of pt's status upon admission and devise an individualized program for Bed mobility Need for home safety evaluation - to improve, our physical therapists will perform initial evaluatio n of pt's status upon admission and devise an individualized program for Home Evaluation Need in caregiver upon discharge - to improve, our physical therapists will perform initial evaluati on of pt's status upon admission and devise an individualized program for Caregiver Training New precaution - to improve, our physical therapists will perform initial evaluation of pt's status upon admission and devise an individualized program for Patient precaution education Edema - to improve, our physical therapists will perform initial evaluation of pt's status upon admi ssion and devise an individualized program for Elevation Training, and Lymphedema Therapy Poor balance - to improve, our physical therapists will perform initial evaluation of pt's status up on admission and devise an individualized program for Balance Training Poor endurance - to improve, our physical therapists will perform initial evaluation of pt's status upon admission and devise an individualized program for Endurance Training Weakness - to improve, our physical therapists will perform initial evaluation of pt's status upon a dmission and devise an individualized program for Aquatic Therapy, Neuromuscular Reeducation, and Str engthening Achieving independence - to improve, our physical therapists will perform initial evaluation of pt's status upon admission and devise an individualized program for Community Reintegration Activities - Occupational Therapy ADL deficits - to improve, our occupation therapists will perform initial evaluation of pt's status upon admission and devise an individualized program for Bathing, Bed mobility, Community Reintegratio n, Cooking, Dressing, Eating, Fine Motor Skills, Grooming, Homemaking, Kitchen Mobility, Laundry, Pat ient Education, Safety Awareness, Splinting - Positioning, Transfers(Toilet, Tub, Shower), and Wheel Chair Management Need for rn home care - to improve, our occupation therapists will perform initial evaluation of pt's status upon admission and devise an individualized program for Caregiver Training Weakness - to improve, our occupation therapists will perform initial evaluation of pt's status upon admission and devise an individualized program for Aquatic Therapy, Balance, Endurance, UE ROM, and UE strengthening - Other See attached MAR (Medication Administration Record) - Diet Type Continue Regular - Diet - Liquid Texture Continue Regular - Tube Feed Continue N/A - DVT Risk due to restricted mobility - Skin Breakdown Risk due to restricted mobility and age - Fall Precaution Low bed TABS alarm Bed alarm - Diet - Solid Texture Continue Regular - Shower allowing shower FUNCTIONAL STATUS: UPDATED AT WEEKLY TEAM CONFERENCE - Bladder Same accident frequency: 7-Ind - No accidents in the past 7 days - Bowel Same accident frequency: 7-Ind - No accidents in the past 7 days - Walking Same score based on distance walked: 0(N/A) - Wheelchair Same score based on distance traveled: 0(N/A) FUNCTIONAL STATUS: - Self-Care A. Eating Harsh B. Grooming Harsh C. Bathing modA D. Dressing - Upper Junior E. Dressing - Lower modA F. Toileting sup - Sphincter Control G. Bladder control Harsh H. Bowel control Harsh - Transfers Control I. Bed/Chair/Wheelchair modA J. Toilet maxA K. Tub/Shower maxA - Locomotion L. Walk/Wheelchair (B) maxA M. Stairs ADNO - Communication N. Comprehension (B) Harsh O. Expression (B) Harsh - Social Cognition P. Social Interaction Harsh Q. Problem Solving sup R. Memory Harsh - Endurance Fair - Balance Fair - Safety Awareness Fair QI SCORES: - Self-Care A. Eating 04-Supervision or touching assistance B. Oral hygiene 04-Supervision or touching assistance C. Toileting hygiene 03-Partial/moderate assistance E. Shower/bathe self 03-Partial/moderate assistance F. Upper body dressing 03-Partial/moderate assistance G. Lower body dressing 03-Partial/moderate assistance H. Putting on/taking off footwear 03-Partial/moderate assistance - Mobility A. Roll left and right 03-Partial/moderate assistance B. Sit to lying 03-Partial/moderate assistance C. Lying to sitting on side of bed 03-Partial/moderate assistance D. Sit to stand 03-Partial/moderate assistance E. Chair/[id number] transfer 03-Partial/moderate assistance F. Toilet transfer 03-Partial/moderate assistance G. Car transfer 88-Not attempted due to medical condition or safety concerns I. Walk 10 feet 88-Not attempted due to medical condition or safety concerns J. Walk 50 feet with two turns 88-Not attempted due to medical condition or safety concerns K. Walk 150 feet 88-Not attempted due to medical condition or safety concerns L. Walking 10 feet on uneven surfaces 88-Not attempted due to medical condition or safety concerns M. 1 step (curb) 88-Not attempted due to medical condition or safety concerns N. 4 steps 88-Not attempted due to medical condition or safety concerns O. 12 steps 88-Not attempted due to medical condition or safety concerns P. Picking up object 88-Not attempted due to medical condition or safety concerns R. Wheel 50 feet with two turns 09-Not applicable S. Wheel 150 feet 09-Not applicable - Bladder and Bowel Bladder continence 0-Always continent Bowel continence 0-Always continent - Endurance Fair - Balance Poor - Safety Awareness Poor CURRENT FUNC. DEFICITS: Self-Care, Mobility, Endurance, Balance, and Safety Awareness SIGNATURE PANEL: (CDT)
[2022-05-29] MEDS: ROSUVASTATIN 10 MG TAB PO SCH (20:57)
[2022-05-29] MEDS: TRAZODONE 50 MG TABLET PO PRN (20:57)
[2022-05-30] MEDS: LEVOTHYROXINE SOD 0.05 MG TABLET PO SCH (07:14)
[2022-05-30] MEDS: INSULIN -REGULAR HUMAN 50 UNIT/0.5 ML ML SQ SCH ×2 (07:17→11:30)
[2022-05-30 07:35] VITALS: TEMP 97.7
[2022-05-30] MEDS: METOPROLOL TAR 50 MG TAB PO SCH ×2 (08:00→11:49)
[2022-05-30] MEDS: AMINO ACIDS/PROTEIN HYDROLYS 30 ML LIQUID.PKT PO SCH (08:00)
[2022-05-30] MEDS: PANTOPRAZOLE 40MG TABLET PO SCH (08:43)
[2022-05-30] MEDS: TAMSULOSIN 0.4 MG SR CAP PO SCH (08:43)
[2022-05-30] MEDS: VITAMIN B COMPLEX 1 CAP PO SCH (08:44)
[2022-05-30] MEDS: GABAPENTIN 300 MG CAP PO SCH (08:44)
[2022-05-30] MEDS: APIXABAN 5 MG TABLET PO SCH (08:44)
[2022-05-30] MEDS: VITAMIN D 1000 UNIT TAB PO SCH (08:45)
[2022-05-30] MEDS: POTASSIUM CL SA 10 MEQ TAB PO SCH (08:45)
[2022-05-30] MEDS: RANOLAZINE 500 MG PO SCH (08:47)
[2022-05-30] MEDS: MEDIHONEY 44 ML TOPICAL TUBE TOP SCH (08:48)
[2022-05-30] MEDS: INSULIN GLARGINE 100 UNIT/ML SQ SCH (08:49)
[2022-05-30 11:49] VITALS: BP 110/68
--- NOTE | 2022-05-30 18:01 | R.PN ---
PROGRESS NOTES ENCOUNTER DATE AND TIME: 05/30/2022 17:58 (CDT) NAME ALTHEA TOVAR DATE OF : 1945 DATE OF ADMISSION: 05/07/2022 21:00 (CDT) GENERALIZED WEAKNESSCHIEF COMPLAINT: Fell on his face, debility with generalized weakness SUBJECTIVE: Pt denied any Shortness of Breath. Pt denied any depression. CBC with diff is essentially normal. HgA1c 7.8, glucose 140 to 192, prealbumin 11.4. Note serum alco hol was 297 on 05/04/22 when he was admitted to the acute care hospital after falling. Ambulated 302' with CGA using a rolling walker. Self-propelled wheelchair 100' with SBA. Covid-19 is negative x 2. VITAL SIGNS Temperature: 97.7 F SBP/DBP: 110/68 Pulse: 76 Resp: 16 MEDICATION ALLERGIES: No Known Drug Allergies (NKDA) ENVIRONMENTAL ALLERGIES: - Substance Allergies None Known - Other Allergies None Known NURSING: - Shower allowing shower PRECAUTIONS: - Fall Precaution Low bed TABS alarm Bed alarm - DVT Risk due to restricted mobility - Skin Breakdown Risk due to restricted mobility and age ACTIVITIES OOB only with supervision THERAPIES: - Dietary and Nutrition Adequate Nutrition. Nutritional Education. Nutritional Supplements. - Occupational Therapy Cognitive Retraining. Patient needs Occupational Therapy for a daily minimum of 1.5 hours at least 5 out of 7 days, to improve Activities of Daily Living, including: Eating, Grooming, Bathing, Dressing, Toileting, Toilet Transfers, Community Reintegration, Higher functional activities, Adaptive Equipme nt, Splinting, Household Tasks, and Other activities as determined. Visual Perceptual Training. - Physical Therapy Patient needs Physical Therapy for a daily minimum of 1.5 hours at least 5 out of 7 days, to improve: Mobility, Strengthening, Transfers, Stretching, ROM, Endurance, Ability to manage stairs, Gait, and Balance. PHYSICAL EXAM - Gen Alert and awake Lying in bed No apparent distress Oriented to: person, time, and place - Skin No breakdown Bilateral facial bruising, protective dressing on nose bridge - Eyes Hematoma around both eyes with injected left sclera. - Neck Decreased range of motion in all directions. - CVS RRR - Chest No abnormalities - Resp No wheezing - Abd Soft - GI Non distended Deferred - No abnormalities - Ext Mild bilateral lower extremity edema. 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 - Neuro No focal deficits. Decreased sensation in both hands with cervical radicular pain into both hands. - Psych No abnormalities ASSESSMENT: Pt. is a 76 yo male of unknown race.On 05/06/2022 he was admitted to [facility] with diagn osis GENERALIZED WEAKNESS.His impairment category is Debility 16 - Debility (16).Pre-morbidly, Pt. w as independent/mod-I in Locomotion and Self-Care; and he had good Safety Awareness, Balance, Transfer s Control, and Endurance.Currently, he has deficits of Locomotion, Safety Awareness, Transfers Contro l, Balance, Self-Care, and Endurance.Pt. is now referred to [facility] for acu te in-patient rehabilitation in order to maximize patient's functional independence in activities of daily living, strength, ROM, and mobility.- Rehab Goal Patient has realistic goal of being discharged at assistance level 6-Harsh to reside at Home with Fam davion/Relatives. MDM/PLAN: - Physical Therapy Gait dysfunction - to improve, our physical therapists will perform initial evaluation of pt's statu s upon admission and devise an individualized program for Gait Training, and Wheel Chair mobility Inability to transfer - to improve, our physical therapists will perform initial evaluation of pt's status upon admission and devise an individualized program for Bed mobility Need for home safety evaluation - to improve, our physical therapists will perform initial evaluatio n of pt's status upon admission and devise an individualized program for Home Evaluation Need in caregiver upon discharge - to improve, our physical therapists will perform initial evaluati on of pt's status upon admission and devise an individualized program for Caregiver Training New precaution - to improve, our physical therapists will perform initial evaluation of pt's status upon admission and devise an individualized program for Patient precaution education Edema - to improve, our physical therapists will perform initial evaluation of pt's status upon admi ssion and devise an individualized program for Elevation Training, and Lymphedema Therapy Poor balance - to improve, our physical therapists will perform initial evaluation of pt's status up on admission and devise an individualized program for Balance Training Poor endurance - to improve, our physical therapists will perform initial evaluation of pt's status upon admission and devise an individualized program for Endurance Training Weakness - to improve, our physical therapists will perform initial evaluation of pt's status upon a dmission and devise an individualized program for Aquatic Therapy, Neuromuscular Reeducation, and Str engthening Achieving independence - to improve, our physical therapists will perform initial evaluation of pt's status upon admission and devise an individualized program for Community Reintegration Activities - Occupational Therapy ADL deficits - to improve, our occupation therapists will perform initial evaluation of pt's status upon admission and devise an individualized program for Bathing, Bed mobility, Community Reintegratio n, Cooking, Dressing, Eating, Fine Motor Skills, Grooming, Homemaking, Kitchen Mobility, Laundry, Pat ient Education, Safety Awareness, Splinting - Positioning, Transfers(Toilet, Tub, Shower), and Wheel Chair Management Need for patient care provider - to improve, our occupation therapists will perform initial evaluation of pt's status upon admission and devise an individualized program for Caregiver Training Weakness - to improve, our occupation therapists will perform initial evaluation of pt's status upon admission and devise an individualized program for Aquatic Therapy, Balance, Endurance, UE ROM, and UE strengthening - Other See attached MAR (Medication Administration Record) - Diet Type Continue Regular - Diet - Liquid Texture Continue Regular - Tube Feed Continue N/A - DVT Risk due to restricted mobility - Skin Breakdown Risk due to restricted mobility and age - Fall Precaution Low bed TABS alarm Bed alarm - Diet - Solid Texture Continue Regular - Shower allowing shower FUNCTIONAL STATUS: UPDATED AT WEEKLY TEAM CONFERENCE - Bladder Same accident frequency: 7-Ind - No accidents in the past 7 days - Bowel Same accident frequency: 7-Ind - No accidents in the past 7 days - Walking Same score based on distance walked: 0(N/A) - Wheelchair Same score based on distance traveled: 0(N/A) FUNCTIONAL STATUS: - Self-Care A. Eating Harsh B. Grooming Harsh C. Bathing modA D. Dressing - Upper Junior E. Dressing - Lower modA F. Toileting sup - Sphincter Control G. Bladder control Harsh H. Bowel control Harsh - Transfers Control I. Bed/Chair/Wheelchair modA J. Toilet maxA K. Tub/Shower maxA - Locomotion L. Walk/Wheelchair (B) maxA M. Stairs ADNO - Communication N. Comprehension (B) Harsh O. Expression (B) Harsh - Social Cognition P. Social Interaction Harsh Q. Problem Solving sup R. Memory Harsh - Endurance Fair - Balance Fair - Safety Awareness Fair QI SCORES: - Self-Care A. Eating 04-Supervision or touching assistance B. Oral hygiene 04-Supervision or touching assistance C. Toileting hygiene 03-Partial/moderate assistance E. Shower/bathe self 03-Partial/moderate assistance F. Upper body dressing 03-Partial/moderate assistance G. Lower body dressing 03-Partial/moderate assistance H. Putting on/taking off footwear 03-Partial/moderate assistance - Mobility A. Roll left and right 03-Partial/moderate assistance B. Sit to lying 03-Partial/moderate assistance C. Lying to sitting on side of bed 03-Partial/moderate assistance D. Sit to stand 03-Partial/moderate assistance E. Chair/pjn-ua-[id number] transfer 03-Partial/moderate assistance F. Toilet transfer 03-Partial/moderate assistance G. Car transfer 88-Not attempted due to medical condition or safety concerns I. Walk 10 feet 88-Not attempted due to medical condition or safety concerns J. Walk 50 feet with two turns 88-Not attempted due to medical condition or safety concerns K. Walk 150 feet 88-Not attempted due to medical condition or safety concerns L. Walking 10 feet on uneven surfaces 88-Not attempted due to medical condition or safety concerns M. 1 step (curb) 88-Not attempted due to medical condition or safety concerns N. 4 steps 88-Not attempted due to medical condition or safety concerns O. 12 steps 88-Not attempted due to medical condition or safety concerns P. Picking up object 88-Not attempted due to medical condition or safety concerns R. Wheel 50 feet with two turns 09-Not applicable S. Wheel 150 feet 09-Not applicable - Bladder and Bowel Bladder continence 0-Always continent Bowel continence 0-Always continent - Endurance Fair - Balance Poor - Safety Awareness Poor CURRENT FUNC. DEFICITS: Self-Care, Mobility, Endurance, Balance, and Safety Awareness SIGNATURE PANEL: (CDT)
--- NOTE | 2022-06-01 13:20 | R.DS ---
DISCHARGE SUMMARY FACILITY [facility] MR# [id number] NAME ALTHEA TOVAR AD[address]ESS [address] [place] [address] PHONE DATE OF 1945 AGE 76 SSN# [id number] GENDER Male DEXTERITY Unknown dexterity MARITAL STATUS Unknown race ENCOUNTER PHYSICIAN Dr. Rolf Vazquez M.D. REFERRING DOCTOR Atilio Alves REFERRING FACILITY [facility] DISCHARGE DIAGNOSIS: - Debility 16 - Debility (16) GENERALIZED WEAKNESS. DISCHARGE COMORBIDITIES: - Non-Tiered Alcohol use, unspecified with intoxication, unspecified (F10.929) Ataxia, unspecified (R27.0) Unspecified fall, initial encounter (W19.XXXA) Paroxysmal atrial fibrillation (I48.0) DATE OF ADMISSION 05/07/2022 21:00 (CDT) MEDICATION ALLERGIES: No Known Drug Allergies (NKDA) ENVIRONMENTAL ALLERGIES: - Substance Allergies None Known - Other Allergies None Known DISCHARGE MEDICATIONS: Other- ContinueSee attached MAR (Medication Administration Record). NURSING: - Shower allowing shower PRECAUTIONS: - Fall Precaution Low bed TABS alarm Bed alarm - DVT Risk due to restricted mobility - Skin Breakdown Risk due to restricted mobility and age ACTIVITIES OOB only with supervision THERAPIES: - Dietary and Nutrition Adequate Nutrition Nutritional Education Nutritional Supplements - Occupational Therapy Cognitive Retraining Patient needs Occupational Therapy for a daily minimum of 1.5 hours at least 5 out of 7 days, to impr ove Activities of Daily Living, including: Eating, Grooming, Bathing, Dressing, Toileting, Toilet Tra nsfers, Community Reintegration, Higher functional activities, Adaptive Equipment, Splinting, Househo ld Tasks, and Other activities as determined Visual Perceptual Training - Physical Therapy Patient needs Physical Therapy for a daily minimum of 1.5 hours at least 5 out of 7 days, to improve: Mobility, Strengthening, Transfers, Stretching, ROM, Endurance, Ability to manage stairs, Gait, and Balance HISTORY OF PRESENT ILLNESS: Pt. is a 76 yo male of unknown race.On 05/06/2022 he was admitted to [facility] with diagn osis GENERALIZED WEAKNESS.His impairment category is Debility 16 - Debility (16).Pre-morbidly, Pt. w as independent/mod-I in Locomotion and Self-Care; and he had good Safety Awareness, Balance, Transfer s Control, and Endurance.Currently, he has deficits of Locomotion, Safety Awareness, Transfers Contro l, Balance, Self-Care, and Endurance.Pt. is now referred to [facility] for acu te in-patient rehabilitation in order to maximize patient's functional independence in activities of daily living, strength, ROM, and mobility.- Rehab Goal Patient has realistic goal of being discharged at assistance level 6-Harsh to reside at Home with Fam davion/Relatives. DVT RISK: On 05/07/2022 the following precautions were added for the patient: DVT Risk - due to restricted mobi lity. On 05/08/2022 the following precautions were added for the patient: DVT Risk - due to restricted mob ility. On 05/09/2022 the following precautions were removed for the patient: DVT Risk - due to restricted m obility. On 05/10/2022 the following precautions were added for the patient: DVT Risk - due to restricted mob ility. The following precautions were removed for the patient: DVT Risk - due to restricted mobility, and DV T Risk - due to restricted mobility. On 05/07/2022 the following precautions were added for the patient: Fall Precaution - Low bed, Fall P recaution - TABS alarm, and Fall Precaution - Bed alarm. On 05/08/2022 the following precautions were added for the patient: Fall Precaution - Low bed, Fall Precaution - TABS alarm, and Fall Precaution - Bed alarm. On 05/09/2022 the following precautions were removed for the patient: Fall Precaution - Low bed, Fal l Precaution - TABS alarm, and Fall Precaution - Bed alarm. On 05/10/2022 the following precautions were added for the patient: Fall Precaution - Low bed, Fall Precaution - TABS alarm, and Fall Precaution - Bed alarm. On 05/07/2022 the following precautions were removed for the patient: Fall Precaution - Low bed, Fall Precaution - TABS alarm, Fall Precaution - Bed alarm, Fall Precaution - Low bed, Fall Precaution - TABS alarm, and Fall Precaution - Bed alarm. The following precautions were added for the patient: Skin Breakdown Risk - due to restricted mobilit y and age. On 05/08/2022 the following precautions were added for the patient: Skin Breakdown Risk - due to res tricted mobility and age. On 05/09/2022 the following precautions were removed for the patient: Skin Breakdown Risk - due to r estricted mobility and age. On 05/10/2022 the following precautions were added for the patient: Skin Breakdown Risk - due to res tricted mobility and age. The following precautions were removed for the patient: Skin Breakdown Risk - due to restricted mobil ity and age, and Skin Breakdown Risk - due to restricted mobility and age. DIET - LIQUID TEXTURE: On 05/07/2022 Pt was upgraded to Regular Diet - Liquid Texture. DIET - SOLID TEXTURE: On 05/07/2022 Pt was upgraded to Regular Diet - Solid Texture. DIET TYPE: On 05/07/2022 Pt was upgraded to Regular Diet Type. FALL PRECAUTION: SKIN BREAKDOWN RISK: TUBE FEED: On 05/07/2022 Pt was changed to N/A Tube Feed. DISCHARGE PHYSICAL EXAM - Gen Alert and awake Lying in bed No apparent distress Oriented to: person, time, and place - Skin No breakdown Bilateral facial bruising, protective dressing on nose bridge - Eyes Hematoma around both eyes with injected left sclera. - Neck Decreased range of motion in all directions. - CVS RRR - Chest No abnormalities - Resp No wheezing - Abd Soft - GI Non distended Deferred - No abnormalities - Ext Mild bilateral lower extremity edema. 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 - Neuro No focal deficits. Decreased sensation in both hands with cervical radicular pain into both hands. - Psych No abnormalities FUNCTIONAL STATUS: - Self-Care A. Eating 6-Harsh B. Grooming 6-Harsh C. Bathing 6-Harsh D. Dressing - Upper 6-Harsh E. Dressing - Lower 6-Harsh F. Toileting 6-Harsh - Sphincter Control G. Bladder control 6-Harsh H. Bowel control 6-Harsh - Transfers Control I. Bed/Chair/Wheelchair 6-Harsh J. Toilet 6-Harsh K. Tub/Shower 6-Harsh - Locomotion L. Walk/Wheelchair (B) 6-Harsh M. Stairs 0-ADNO - Communication N. Comprehension (B) 6-Harsh O. Expression (B) 6-Harsh - Social Cognition P. Social Interaction 6-Harsh Q. Problem Solving 5-sup R. Memory 6-Harsh - Endurance Good - Balance Good - Safety Awareness Fair QI SCORES: - Self-Care A. Eating 04-Supervision or touching assistance B. Oral hygiene 04-Supervision or touching assistance C. Toileting hygiene 03-Partial/moderate assistance E. Shower/bathe self 03-Partial/moderate assistance F. Upper body dressing 03-Partial/moderate assistance G. Lower body dressing 03-Partial/moderate assistance H. Putting on/taking off footwear 03-Partial/moderate assistance - Mobility A. Roll left and right 03-Partial/moderate assistance B. Sit to lying 03-Partial/moderate assistance C. Lying to sitting on side of bed 03-Partial/moderate assistance D. Sit to stand 03-Partial/moderate assistance E. Chair/yjd-fy-[id number] transfer 03-Partial/moderate assistance F. Toilet transfer 03-Partial/moderate assistance G. Car transfer 88-Not attempted due to medical condition or safety concerns I. Walk 10 feet 88-Not attempted due to medical condition or safety concerns J. Walk 50 feet with two turns 88-Not attempted due to medical condition or safety concerns K. Walk 150 feet 88-Not attempted due to medical condition or safety concerns L. Walking 10 feet on uneven surfaces 88-Not attempted due to medical condition or safety concerns M. 1 step (curb) 88-Not attempted due to medical condition or safety concerns N. 4 steps 88-Not attempted due to medical condition or safety concerns O. 12 steps 88-Not attempted due to medical condition or safety concerns P. Picking up object 88-Not attempted due to medical condition or safety concerns R. Wheel 50 feet with two turns 09-Not applicable S. Wheel 150 feet 09-Not applicable - Bladder and Bowel Bladder continence 0-Always continent Bowel continence 0-Always continent - Endurance Fair - Balance Poor - Safety Awareness Poor DISCHARGE INSTRUCTIONS: - N/A Eliquis 5 mg twice daily. DISCHARGE PLAN, FOLLOW UP CARE PROVISIONS: - Estimated Length of Stay (days) 13. - Consensus on plan Discharge plan has been discussed with primary caregiver. Patient/Family is in agreement with the scotty n. Primary caregiver is in agreement with the plan. - Patient/Family Goals Return home independently. - Planned Living Setting Upon Discharge Home, to live with Family/Relatives. Transitional Living. SIGNATURE PANEL: (CDT)
== END 2022-05-30 14:30 | disposition home health service (06) | DRG 948 ==
LOC: 5TH 20:48
PROVIDERS: ADMIT Psychiatry & Neurology Neurology with Special Qualifications in Child Neurology; ATTEND Psychiatry & Neurology Neurology with Special Qualifications in Child Neurology
DX: R53.81 Other malaise (principal); Z20.822 Contact with and (suspected) exposure to COVID-19
CPT/HCPCS: 36415; 80048; 81001; 82040; 82947; 83036; 83735; 84134; 85025; 87086; 87088; 97110; 97112; 97116; 97161; 97165; 97530; 97542; 99251; J1815; U0003